=== PATIENT | female | born 1940 | race Caucasian/White ===

== ENCOUNTER → 2016-07-30 | Outpatient (CLI) | payer OTHER ==
[~2016-07-30] MED LIST: ACET-1256 PO; ANT PO; BUDE180I INH; CHOL100010 PO; DORZ2SOL17 OPB; DULO60CA44 PO; FEXO1TAB49 PO; LEVO75TA5 PO; MULTTAB58 PO; PANT40TA PO; PLV75 PO; POLYSOL4 OP; PRD/25 PO; TOPI50TA16 PO; TRAM-10 PO; TRAV0.00 OPB; TRAZ50TA35 PO
[2016-07-30 14:12] LABS: URINE APPEARANCE CLEAR (CLEAR); URINE BILIRUBIN NEG (NEG); URINE COLOR YELLOW; URINE EPITHELIAL CELL AUTO 20-30 /lpf (0-5); URINE NITRITE NEG (NEG); URINE PH 5.5 (4.5-7.5); UROBILINOGEN NEG (NEG)
[2016-07-30 14:18] LABS: MANUAL MICROSCOPIC REQUIRED? NO; REVIEW REQ? NO
== END | disposition home or self-care (01) ==
LOC: C.LABBC 11:46
PROVIDERS: ATTEND Internal Medicine Geriatric Medicine
DX: R39.9 Unspecified symptoms and signs involving the genitourinary system (principal)

== ENCOUNTER → 2016-09-24 | Day surgery (SDC) | payer OTHER ==
[2016-09-03 10:39] VITALS: Ht 147.3 cm; Wt 62.3 kg
[~2016-09-24] VITALS: Ht 147.3 cm; Wt 62.3 kg
[~2016-09-24] MED LIST changes: +500ML BSS 0.3ML EPI 1:1000PF IRRIG ONE; +ACETAMINOPHEN 325 MG TAB PO PRN; +AMVISC PLUS 0.8ML SYRINGE INT OCU ONE; +ATROPINE SULFATE 0.1 MG/ML 5ML SYR IV PRN; +BSS FLUSH ONE; +ENDOCOAT 0.85ML SYRINGE INT OCU ONE; +EpINEphrine INJ 1MG/ML AMP 1 MG/ML AMP ONE; +FENTANYL CITRATE INJ 50 MCG/1 ML 2 ML VIAL ONE; +FSMD/70 PO; +GABA-112 PO; +LACTATED RINGER'S 1000ML 500 ML IV SCH; +LIDOCAINE 4% OP SOLN DROP CHARGE ONE; +LIDOCAINE 4% OP SOLN DROP CHARGE OPL SCH; +LIDOCAINE HCL 1% MPF 2 ML VIAL ONE; +MIDAZOLAM HCL 1 MG/ML 2ML VIAL ONE; +MIX: 4ML BSS 1ML EPI 1:1000 PF TOP ONE; +MOXIFLOXACIN OPH SOLN PER DROP CHARGE ONE; +POVIDONE-IODINE OP SOLN 30 ML BTL ONE; +PRMVC PV; +PROPARACAINE 0.5% OP SOLN PER DROP CHARGE OPL SCH; +RANITIDINE HCL 25 MG/ML INJ ONE; +TOBRAMYCIN/DEXAMETHASONE OPH OINT PER APPLN CHARGE ONE
--- NOTE | 2016-09-24 07:27 | History & Physical Bridge - [place] ---
H&P Re-Evaluation Bridge Note: I have examined the patient, reviewed the History & Physical and in the interval since the performance of the History & Physical I have noted the following changes of clinical significance: No changes noted. Left eye cataract surgery.
[2016-09-24] MEDS: PHENYLEPHRINE HCL 2.5% OP SOLN PER DROP CHARGE OPL SCH ×3 (07:29→07:39)
[2016-09-24] MEDS: TROPICAMIDE 1% OP SOLN PER DROP CHARGE OPL SCH ×3 (07:30→07:40)
[2016-09-24] MEDS: CYCLOPENTOLATE HCL 1% OP SOLN PER DROP CHARGE OPL SCH ×3 (07:31→07:41)
[2016-09-24] MEDS: MOXIFLOXACIN OPH SOLN PER DROP CHARGE OPL SCH ×3 (07:32→07:42)
--- NOTE | 2016-09-24 08:38 | [facility] Operative Report ---
Operative Report Date of Service September 24, 2016. Operative Report Phaco with monofocal IOL DATE OF OPERATION: 09/24/16 PREOPERATIVE DIAGNOSIS: Senile nuclear cataract, left eye POSTOPERATIVE DIAGNOSIS: Senile nuclear cataract, left eye PROCEDURE PERFORMED: Phacoemulsification with intraocular lens implantation, left eye SURGEON: Dr. Rashad Boucher ANESTHESIA: Topical with 1% intracameral lidocaine and monitored anesthesia care COMPLICATIONS: None DESCRIPTION OF PROCEDURE: After positively identifying the patient both verbally and by wristband in the preoperative area, the left eye was marked as the operative eye. The patient was then brought back to the operating room by the anesthesia and nursing staff where they were given a drop of Lidocaine and betadine into the operative eye. They were then sterilely prepped and draped in the standard fashion typical for ophthalmic surgery. Steri-strips were placed along the upper eyelids to keep the lashes back, and a lid speculum was placed into the operative eye. At this point, a documented time out was performed with members of the ophthalmology, nursing, and anesthesia staffs all agreeing upon the correct patient, correct location for surgery, correct procedure, and correct type and power of intraocular lens to be implanted. The microscope was then swung into position. First, a paracentesis wound was made using a sideport blade. Then, in sequence, 1% preservative-free lidocaine followed by Endocoat viscoelastic was injected into the anterior chamber. Next , the main incision was made with a keratome blade in triplanar fashion. A sharp cystotome was introduced into the eye and used to create a tear in the anterior capsule, which was directed into a continuous curvilinear capsulorrhexis using Utrata forceps. Hydrodissection was then performed with BSS on a flat-tip cannula. Next, the phacoemulsification handpiece was introduced into the eye and used to remove the nucleus in a [id number]-wrrssbb fashion. This was done without complication and then the irrigation-aspiration handpiece was introduced into the eye and used to remove all remaining cortical and epinuclear material. Amvisc was then injected into the anterior chamber as well as into the capsular bag and using the lens injector system, an MX60 24.5 D lens, serial number [id number], and expiration date 07/2017 was injected into the capsular bag and rotated into the correct position. Next, the irrigation- aspiration handpiece was used to remove all remaining Amvisc. BSS was used to hydrate the main wound, and then BSS was injected into the paracentesis site to reach physiologic pressure and then the main wound was checked and found to be watertight. The patient was given drops of Vigamox and Tobradex ointment into the operative eye, and then the surrounding area was cleaned and dried. A clear plastic shield was placed over the eye and the patient was then sat up and taken from the operating room by the anesthesia staff having tolerated the procedure well and suffering no complications. DISPOSITION: The patient was returned to the recovery room in stable condition. I attest to the content of the Intraoperative Record and any orders documented therein. Any exceptions are noted below.
--- NOTE | 2016-09-24 08:38 | [facility] Post Operative Brief Note ---
Immediate Operative Summary Operative Date September 24, 2016. Pre-Operative Diagnosis Left eye cataract Post-Operative Diagnosis same Procedure(s) Performed Left Cataract Phacoemulsification With Intraocular Lens implant Surgeon Dr Boucher Carpet Inspector Finished Surgeon(s) none Estimated Blood Loss 0 Findings left cataract Specimens none Complication(s) None Disposition
--- NOTE | 2016-09-24 08:39 | Discharge Instructions-SurgCtr ---
Discharge Instructions Date of Service September 24, 2016. Visit Reason for Visit: Left Cataract Discharge Discharge Diagnosis / Problem: left cataract Discharge Goals Goal(s): Decrease discomfort, Improve function Activity Recommendations Activity Limitations: as noted below Anesthesia . Post Anesthesia Instructions: If you have had General Anesthesia or IV Sedation: * Do not drive today. * Resume driving when surgeon permits. * Do not make important decisions or sign legal documents today. * Call surgeon for: 1. Temperature elevations greater than 101 degrees F. 2. Uncontrollable pain. 3. Excessive bleeding. 4. Persistent nausea and vomiting. 5. Medication intolerance (nausea, vomiting or rash). * For nausea and vomiting use only clear liquids such as: tea, soda, bouillon until nausea subsides, then gradually increase diet as tolerated. * If you have any concerns or questions, call your surgeon's office. If physician is unavailable and it is an emergency, call 911 or go to the nearest emergency room. . Instructions / Follow-Up Instructions / Follow-Up ACTIVITY RECOMMENDATIONS: * Light activities. * You may walk outside, read, watch television. * You may notice redness on the white part of the eye and some blurry vision - this is normal. MEDICATIONS: Resume previous medications unless instructed otherwise by your surgeon. Start all eye drops at 10:30 am today: * Eye drops (today): Prednisone - one drop in operative eye every 2 hours while awake Ofloxacin - one drop in operative eye every 2 hours while awake SPECIAL CARE INSTRUCTIONS: * Tape plastic shield over eye to sleep at night. Call your doctor at with any concerns or problems. FOLLOW UP VISIT: Follow-up with Dr Boucher at [place] office as scheduled. Diet Recommendations Home Diet: no limitations Procedures Procedures Performed: Left Cataract Phacoemulsification With Intraocular Lens implant Pending Studies Studies pending at discharge: no Medical Emergencies . Who to Call and When: Medical Emergencies: If at any time you feel your situation is an emergency, please call 911 immediately. . Non-Emergent Contact Non-Emergency issues call your: Surgeon . . "Provider Documentation" section prepared by Rashad Boucher. .
[2016-09-24 09:21] VITALS: BP 104/62; PULSE 65; O2SAT 97
--- NOTE | 2016-09-24 09:26 | Anesthesia Progress Nt - [facility] ---
Anesthesia Post Op Note Date & Time September 24, 2016 at 09:26 Vital Signs Pain Intensity: 0 Vital Signs Past 12 Hours Date Time Temp Pulse Resp B/P Pulse Ox O2 Delivery O2 Flow Rate FiO2 09/24/16 09:21 65 16 104/62 97 Room Air 09/24/16 08:38 36.8 68 16 122/75 97 Room Air 09/24/16 07:18 36.3 66 20 122/66 100 Room Air Notes Mental Status: alert / awake / arousable, participated in evaluation Pt Amnestic to Procedure: Yes Nausea / Vomiting: adequately controlled Pain: adequately controlled Airway Patency, RR, SpO2: stable & adequate BP & HR: stable & adequate Hydration State: stable & adequate Anesthetic Complications: no major complications apparent
== END | disposition home or self-care (01) ==
LOC: X.SURG 06:58
PROVIDERS: ATTEND Ophthalmology
DX: H25.12 Age-related nuclear cataract, left eye (principal); J45.909 Unspecified asthma, uncomplicated; M19.90 Unspecified osteoarthritis, unspecified site; Z68.28 Body mass index [BMI] 28.0-28.9, adult; Z79.02 Long term (current) use of antithrombotics/antiplatelets; Z98.51 Tubal ligation status; Z86.73 Personal history of transient ischemic attack (TIA), and cerebral infarction without residual deficits; Z90.710 Acquired absence of both cervix and uterus; Z90.49 Acquired absence of other specified parts of digestive tract; Z88.5 Allergy status to narcotic agent; Z88.1 Allergy status to other antibiotic agents

== ENCOUNTER → 2016-12-04 | Outpatient (CLI) | payer OTHER ==
[~2016-12-04] MED LIST changes: -500ML BSS 0.3ML EPI 1:1000PF IRRIG ONE; -ACETAMINOPHEN 325 MG TAB PO PRN; -AMVISC PLUS 0.8ML SYRINGE INT OCU ONE; -ATROPINE SULFATE 0.1 MG/ML 5ML SYR IV PRN; -BSS FLUSH ONE; -ENDOCOAT 0.85ML SYRINGE INT OCU ONE; -EpINEphrine INJ 1MG/ML AMP 1 MG/ML AMP ONE; -FENTANYL CITRATE INJ 50 MCG/1 ML 2 ML VIAL ONE; -FSMD/70 PO; -GABA-112 PO; -LACTATED RINGER'S 1000ML 500 ML IV SCH; -LIDOCAINE 4% OP SOLN DROP CHARGE ONE; -LIDOCAINE 4% OP SOLN DROP CHARGE OPL SCH; -LIDOCAINE HCL 1% MPF 2 ML VIAL ONE; -MIDAZOLAM HCL 1 MG/ML 2ML VIAL ONE; -MIX: 4ML BSS 1ML EPI 1:1000 PF TOP ONE; -MOXIFLOXACIN OPH SOLN PER DROP CHARGE ONE; -POVIDONE-IODINE OP SOLN 30 ML BTL ONE; -PRMVC PV; -PROPARACAINE 0.5% OP SOLN PER DROP CHARGE OPL SCH; -RANITIDINE HCL 25 MG/ML INJ ONE; -TOBRAMYCIN/DEXAMETHASONE OPH OINT PER APPLN CHARGE ONE
== END | disposition home or self-care (01) ==
LOC: C.LABBFT 10:00
PROVIDERS: ATTEND Urology
DX: R39.9 Unspecified symptoms and signs involving the genitourinary system (principal)

== ENCOUNTER → 2017-05-06 | Day surgery (SDC) | payer OTHER ==
[2017-04-07 11:36] VITALS: Ht 147.3 cm; Wt 62.3 kg
[~2017-05-06] VITALS: Ht 147.3 cm; Wt 62.3 kg
[~2017-05-06] MED LIST changes: +500ML BSS 0.3ML EPI 1:1000PF IRRIG ONE; +ACETAMINOPHEN 325 MG TAB PO PRN; +AMVISC PLUS 0.8ML SYRINGE INT OCU ONE; +ATROPINE SULFATE 0.1 MG/ML 5ML SYR IV PRN; +BSS FLUSH ONE; +ENDOCOAT 0.85ML SYRINGE INT OCU ONE; +EpHEDrine SULFATE INJ 50 MG/ML AMP IV PRN; +EpINEphrine INJ 1MG/ML AMP 1 MG/ML AMP ONE; +FSMD/70 PO; +GABA-112 PO; +LACTATED RINGER'S 1000ML 500 ML IV SCH; +LIDOCAINE 4% OP SOLN DROP CHARGE ONE; +LIDOCAINE 4% OP SOLN DROP CHARGE OPR SCH; +LIDOCAINE HCL 1% MPF 2 ML VIAL ONE; +MIDAZOLAM HCL 1 MG/ML 2ML VIAL ONE; +MIX: 4ML BSS 1ML EPI 1:1000 PF TOP ONE; +MOXIFLOXACIN OPH SOLN PER DROP CHARGE ONE; +POVIDONE-IODINE OP SOLN 30 ML BTL ONE; +PRMVC PV; +PROPARACAINE 0.5% OP SOLN PER DROP CHARGE OPR SCH; +TOBRAMYCIN/DEXAMETHASONE OPH OINT PER APPLN CHARGE ONE
--- NOTE | 2017-05-06 06:38 | History & Physical Bridge - [place] ---
H&P Re-Evaluation Bridge Note: I have examined the patient, reviewed the History & Physical and in the interval since the performance of the History & Physical I have noted the following changes of clinical significance: No changes noted
[2017-05-06] MEDS: PHENYLEPHRINE HCL 2.5% OP SOLN PER DROP CHARGE OPR SCH ×3 (07:03→07:13)
[2017-05-06] MEDS: TROPICAMIDE 1% OP SOLN PER DROP CHARGE OPR SCH ×3 (07:04→07:14)
[2017-05-06] MEDS: CYCLOPENTOLATE HCL 1% OP SOLN PER DROP CHARGE OPR SCH ×3 (07:05→07:15)
[2017-05-06] MEDS: MOXIFLOXACIN OPH SOLN PER DROP CHARGE OPR SCH ×3 (07:06→07:16)
--- NOTE | 2017-05-06 08:03 | [facility] Post Operative Brief Note ---
Immediate Operative Summary Operative Date May 06, 2017. Pre-Operative Diagnosis Cataract right eye Post-Operative Diagnosis Same Procedure(s) Performed Right Cataract Phacoemulsification With Intraocular Lens Implant Surgeon Medical Supply Technician Surgeon(s) None Estimated Blood Loss Zero Findings right cataract Specimens None Complication(s) None Disposition
--- NOTE | 2017-05-06 08:04 | [facility] Operative Report ---
Operative Report Date of Service May 06, 2017. Operative Report DATE OF OPERATION: 05/06/17 PREOPERATIVE DIAGNOSIS: Senile nuclear cataract, right eye POSTOPERATIVE DIAGNOSIS: Senile nuclear cataract, right eye PROCEDURE PERFORMED: Phacoemulsification with intraocular lens implantation, right eye SURGEON: Dr. Rashad Boucher ANESTHESIA: Topical with 1% intracameral lidocaine and monitored anesthesia care COMPLICATIONS: None DESCRIPTION OF PROCEDURE: After positively identifying the patient both verbally and by wristband in the preoperative area, the right eye was marked as the operative eye. The patient was then brought back to the operating room by the anesthesia and nursing staff where they were given a drop of Lidocaine and betadine into the operative eye. They were then sterilely prepped and draped in the standard fashion typical for ophthalmic surgery. Steri-strips were placed along the upper eyelids to keep the lashes back, and a lid speculum was placed into the operative eye. At this point, a documented time out was performed with members of the ophthalmology, nursing, and anesthesia staffs all agreeing upon the correct patient, correct location for surgery, correct procedure, and correct type and power of intraocular lens to be implanted. The microscope was then swung into position. First, a paracentesis wound was made using a sideport blade. Then, in sequence, 1% preservative-free lidocaine followed by Endocoat viscoelastic was injected into the anterior chamber. Next , the main incision was made with a keratome blade in triplanar fashion. A sharp cystotome was introduced into the eye and used to create a tear in the anterior capsule, which was directed into a continuous curvilinear capsulorrhexis using Utrata forceps. Hydrodissection was then performed with BSS on a flat-tip cannula. Next, the phacoemulsification handpiece was introduced into the eye and used to remove the nucleus in a [id number]-[id number] fashion. This was done without complication and then the irrigation-aspiration handpiece was introduced into the eye and used to remove all remaining cortical and epinuclear material. Amvisc was then injected into the anterior chamber as well as into the capsular bag and using the lens injector system, an MX60 22.5 D lens, serial number [id number], and expiration date 10/2019 was injected into the capsular bag and rotated into the correct position. Next, the irrigation- aspiration handpiece was used to remove all remaining Amvisc. BSS was used to hydrate the main wound, and then BSS was injected into the paracentesis site to reach physiologic pressure and then the main wound was checked and found to be watertight. The patient was given drops of Vigamox and Tobradex ointment into the operative eye, and then the surrounding area was cleaned and dried. A clear plastic shield was placed over the eye and the patient was then sat up and taken from the operating room by the anesthesia staff having tolerated the procedure well and suffering no complications. DISPOSITION: The patient was returned to the recovery room in stable condition. I attest to the content of the Intraoperative Record and any orders documented therein. Any exceptions are noted below.
[2017-05-06 08:05] VITALS: TEMP 36
--- NOTE | 2017-05-06 08:05 | Discharge Instructions-SurgCtr ---
Discharge Instructions Date of Service May 06, 2017. Visit Reason for Visit: Cataract Right Eye Discharge Discharge Diagnosis / Problem: right cataract Discharge Goals Goal(s): Decrease discomfort, Improve function Activity Recommendations Activity Limitations: as noted below Anesthesia . Post Anesthesia Instructions: If you have had General Anesthesia or IV Sedation: * Do not drive today. * Resume driving when surgeon permits. * Do not make important decisions or sign legal documents today. * Call surgeon for: 1. Temperature elevations greater than 101 degrees F. 2. Uncontrollable pain. 3. Excessive bleeding. 4. Persistent nausea and vomiting. 5. Medication intolerance (nausea, vomiting or rash). * For nausea and vomiting use only clear liquids such as: tea, soda, bouillon until nausea subsides, then gradually increase diet as tolerated. * If you have any concerns or questions, call your surgeon's office. If physician is unavailable and it is an emergency, call 911 or go to the nearest emergency room. . Instructions / Follow-Up Instructions / Follow-Up ACTIVITY RECOMMENDATIONS: * Light activities. * You may walk outside, read, watch television. * You may notice redness on the white part of the eye and some blurry vision - this is normal. MEDICATIONS: Resume previous medications unless instructed otherwise by your surgeon. Start all eye drops at 10 am today: * Eye drops (today): Prednisone - one drop in operative eye every 2 hours while awake Ofloxacin - one drop in operative eye every 2 hours while awake SPECIAL CARE INSTRUCTIONS: * Tape plastic shield over eye to sleep at night. Call your doctor at with any concerns or problems. FOLLOW UP VISIT: Follow-up with Dr Boucher at [place] office as scheduled. Diet Recommendations Home Diet: no limitations Procedures Procedures Performed: Right Cataract Phacoemulsification With Intraocular Lens Implant Pending Studies Studies pending at discharge: no Medical Emergencies . Who to Call and When: Medical Emergencies: If at any time you feel your situation is an emergency, please call 911 immediately. . Non-Emergent Contact Non-Emergency issues call your: Surgeon . . "Provider Documentation" section prepared by Rashad Boucher. .
[2017-05-06 08:27] VITALS: BP 135/82; O2SAT 99
--- NOTE | 2017-05-06 08:29 | Anesthesia Progress Nt - [facility] ---
Anesthesia Post Op Note Date & Time May 06, 2017 at 08:29 Vital Signs Pain Intensity: 2 Vital Signs Past 12 Hours Date Time Temp Pulse Resp B/P (MAP) Pulse Ox O2 Delivery O2 Flow Rate FiO2 05/06/17 08:27 16 135/82 (99) 99 Room Air 05/06/17 08:05 36 68 16 110/71 (84) 95 Room Air 05/06/17 06:30 36.3 71 16 105/70 (82) 97 Room Air Notes Mental Status: alert / awake / arousable, participated in evaluation Pt Amnestic to Procedure: Yes Nausea / Vomiting: adequately controlled Pain: adequately controlled Airway Patency, RR, SpO2: stable & adequate BP & HR: stable & adequate Hydration State: stable & adequate Anesthetic Complications: no major complications apparent
== END | disposition home or self-care (01) ==
LOC: X.SURG 06:25
PROVIDERS: ATTEND Ophthalmology
DX: H25.11 Age-related nuclear cataract, right eye (principal); E03.9 Hypothyroidism, unspecified; K21.9 Gastro-esophageal reflux disease without esophagitis; J45.909 Unspecified asthma, uncomplicated; M79.7 Fibromyalgia; F32.9 Major depressive disorder, single episode, unspecified; Z79.899 Other long term (current) drug therapy

== ENCOUNTER → 2017-07-16 | Outpatient (CLI) | payer OTHER ==
[~2017-07-16] MED LIST changes: -500ML BSS 0.3ML EPI 1:1000PF IRRIG ONE; -ACETAMINOPHEN 325 MG TAB PO PRN; -AMVISC PLUS 0.8ML SYRINGE INT OCU ONE; -ATROPINE SULFATE 0.1 MG/ML 5ML SYR IV PRN; -BSS FLUSH ONE; -ENDOCOAT 0.85ML SYRINGE INT OCU ONE; -EpHEDrine SULFATE INJ 50 MG/ML AMP IV PRN; -EpINEphrine INJ 1MG/ML AMP 1 MG/ML AMP ONE; -LACTATED RINGER'S 1000ML 500 ML IV SCH; -LIDOCAINE 4% OP SOLN DROP CHARGE ONE; -LIDOCAINE 4% OP SOLN DROP CHARGE OPR SCH; -LIDOCAINE HCL 1% MPF 2 ML VIAL ONE; -MIDAZOLAM HCL 1 MG/ML 2ML VIAL ONE; -MIX: 4ML BSS 1ML EPI 1:1000 PF TOP ONE; -MOXIFLOXACIN OPH SOLN PER DROP CHARGE ONE; -POVIDONE-IODINE OP SOLN 30 ML BTL ONE; -PROPARACAINE 0.5% OP SOLN PER DROP CHARGE OPR SCH; -TOBRAMYCIN/DEXAMETHASONE OPH OINT PER APPLN CHARGE ONE
[2017-07-16 16:59] LABS: BASO % 0.9 %; BASO ABS # 0.05 K/uL (0-0.2); EOS % 3.1 %; EOS ABS # 0.17 K/uL (0-0.5); HEMATOCRIT 40.5 % (37-47); HEMOGLOBIN 13.7 g/dL (12.0-16.0); IG# 0.02 K/uL (0.00-0.02); LYMPH % 36.7 %; LYMPH ABS # 1.98 K/uL (1.2-3.4); MEAN CELL VOLUME 95.7 fL (80-100); MEAN CORPUSCULAR HEMOGLOBIN 32.4 pg (25-34); MEAN CORPUSCULAR HGB CONC 33.8 g/dl (32-36); MEAN PLATELET VOLUME 9.5 fL (7.4-10.4); MONO % 14.3 %; MONO ABS # 0.77 K/uL (0.11-0.59); NEUT % 44.6 %; NEUT ABS # 2.41 K/uL (1.4-6.5); PLATELET COUNT 306 K/uL (130-400); RED CELL DISTRIBUTION WIDTH CV 14.1 % (11.5-14.5); RED CELL DISTRIBUTION WIDTH SD 48.9 fL (36.4-46.3)
[2017-07-16 17:13] LABS: ALBUMIN 3.5 gm/dl (3.4-5.0); ALT/SGPT 25 U/L (12-78); BLOOD UREA NITROGEN 19 mg/dl (7-18); CALCIUM 8.8 mg/dl (8.5-10.1); CARBON DIOXIDE 28 mmol/L (21-32); CHOLESTEROL 215 mg/dl (0-200); CREATININE 0.93 mg/dl (0.60-1.20); GLUCOSE 71 mg/dl (70-99); POTASSIUM 3.7 mmol/L (3.5-5.1); SODIUM 134 mmol/L (136-145)
[2017-07-16 17:23] LABS: ALKALINE PHOSPHATASE 45 U/L (45-117); AST/SGOT 20 U/L (15-37); LDL CHOLESTEROL CALCULATED 125 mg/dl
== END | disposition home or self-care (01) ==
LOC: C.LABBC 12:56
PROVIDERS: ATTEND Internal Medicine
DX: G89.29 Other chronic pain (principal); M79.7 Fibromyalgia; M35.3 Polymyalgia rheumatica; E03.9 Hypothyroidism, unspecified; Z86.73 Personal history of transient ischemic attack (TIA), and cerebral infarction without residual deficits; Z79.52 Long term (current) use of systemic steroids; I35.1 Nonrheumatic aortic (valve) insufficiency; R73.01 Impaired fasting glucose

== ENCOUNTER → 2017-12-21 | Outpatient (CLI) | payer OTHER ==
[~2017-12-21] MED LIST changes: -ANT PO; +CALC1CHW46 PO; -CHOL100010 PO; +CHOL1TAB12 PO; -DORZ2SOL17 OPB; +DORZ2SOL19 OPB; -PRMVC PV
--- NOTE | 2017-12-21 18:53 | DIAGNOSTIC IMAGING REPORT ---
TWO VIEW CHEST CLINICAL HISTORY: Cough and fever. FINDINGS: PA and lateral chest radiographs are obtained. No prior studies are available for comparison at the time of dictation. The cardiomediastinal silhouette is unremarkable. There are patchy airspace opacities seen at a posterior lung base on the lateral projection. The it project lead the orbital frontal view. No pleural effusion or pneumothorax is seen. The skeletal structures are osteopenic. The bony thorax appears intact. IMPRESSION: There are patchy airspace opacities seen at a posterior lung base on the lateral projection. This could present atelectasis versus developing pneumonia. Clinical correlation will be required and radiographic follow-up to resolution is recommended. Electronically signed by: Quentin Aragon M.D. 12/21/2017 6:51 PM Dictated Date/Time: 12/21/2017 6:30 PM
== END | disposition home or self-care (01) ==
LOC: C.RAD 17:11
PROVIDERS: ATTEND Internal Medicine
DX: R05 Cough (principal); R50.9 Fever, unspecified

== ENCOUNTER 2021-09-23 15:41 | Observation (INO) ==
[2021-09-23 17:07] LABS: Basophils # (auto) 0.01 K/uL (0-0.2); Basophils % (auto) 0.2 %; Eosinophils # (auto) 0.01 K/uL (0-0.5); Eosinophils % (auto) 0.2 %; Hematocrit (blood only) 44.2 % (37-47); Hemoglobin 15.1 g/dL (12.0-16.0); Immature Granulocytes # (auto) 0.02 K/uL (0.00-0.02); Immature Granulocytes % (auto) 0.3 %; Lymphocytes # (auto) 1.25 K/uL (1.2-3.4); Lymphocytes % (auto) 18.8 %; Mean Corpuscular Hemoglobin 32.1 pg (25-34); Mean Corpuscular Hgb Conc 34.2 g/dL (32-36); Mean Corpuscular Volume 93.8 fL (80-100); Mean Platelet Volume 9.6 fL (7.4-10.4); Monocytes # (auto) 0.33 K/uL (0.11-0.59); Neutrophils # (auto) 5.03 K/uL (1.4-6.5); Neutrophils % (auto) 75.5 %; Platelet Count 281 K/uL (130-400); RDW Standard Deviation 48.1 fL (36.4-46.3); Red Blood Count 4.71 M/uL (4.2-5.4); White Blood Count 6.65 K/uL (4.8-10.8)
--- NOTE | 2021-09-23 17:18 | Emergency Department Note ---
Impression & Plan Elevated troponin, Chest pain ED Provider Note NAME: LENA PAIZ AGE: 81 SEX: F : 1940 ARRIVES VIA: Ambulance INFORMANT: Patient, ED PROVIDER(S): Norm Sy MD Chief Complaint: Chest and abdominal pain HPI: Patient states that she had what she self described as a gastric attack which she has had before but has not had in many years to where she gets diffuse chest pain which then radiates into her upper abdomen. Patient described it as sharp. Patient denies any vomiting but did have associated nausea. No diaphoresis. The patient denies any prior heart history. Patient states that the episode lasted about 30 minutes. It has since resolved but she was going to see the primary care doctor and they referred her here for further evaluation and treatment given the patient's acute symptoms. Patient denies any current abdominal pain nausea or vomiting. Patient's had a recent bowel movement. The patient denies any issues with defecation or urination at this time. No fevers or chills. Patient does complain of some mild bilateral ear discomfort and chronic nonproductive cough. The patient does have a known history of asthma per patient. Patient denies any recent changes in elevation or water activities. ROS: See HPI for pertinent positives and negatives. A total of 10 systems were reviewed and otherwise negative. Past medical history: See below Surgical history: See below Social history: See below Physical Exam: GENERAL: NAD, wearing a mask, non-toxic. EYE EXAM: Normal conjunctiva. PERRL, no anisocoria and EOM's grossly intact w/o pain. Ears: Bilateral TMs clear with no obvious effusion and good light reflex bilaterally. NECK: Supple, no nuchal rigidity, no adenopathy, non-tender. No signs of meningismus. LUNGS: Clear to auscultation. Normal chest wall mechanics. HEART: NSR, no MRG. ABDOMEN: Abdomen soft, non-tender, normo-active bowel sounds, no masses, no rebound or guarding. BACK: No CVA TTP. SKIN: No rashes and no bruising. UPPER EXTREMITIES: Upper extremities are grossly normal. LOWER EXTREMITIES: Grossly normal, no edema. NEURO EXAM: A&O x3, cranial nerves II-XII grossly intact, normal speech, moves all 4 extremities on command w/o issue. Differential diagnoses: Cardiac ischemia, aortic dissection, pulmonary embolism, pneumothorax, pneumonia, pericarditis, myocarditis, esophageal rupture, GERD, cholecystitis, pancreatitis, musculoskeletal, as well as other pathologies. Course: Patient was seen and evaluated the bedside. Full history physical exam was performed. EKG interpreted by me Normal sinus rhythm, rate of 78, normal intervals, normal axis, T wave inversion in V3 with slight flattening V2. This is a change from comparison EKG June 10, 2018. Imaging Studies: See Below Cardiac monitoring: An order was placed for continuous cardiac monitoring. The monitor shows a rate of 67 with sinus rhythm. MDM: Patient was seen due to concern which she self described as a gastric tach with associated chest pain and nausea. Blood work is obtained along with an EKG troponin and plain films. Patient does have slight EKG changes with a detectable high-sensitivity troponin. Given this concern believe the patient would benefit from continued observation. I did speak the on-call hospitalist Dr. Delgado and also spoke with the resident physician Dr. Haskins. The patient was admitted to the medicine service. Patient's plain film showed concern for possible ileus versus SBO but the patient does not have acute pain at this time. No aspirin at this time as the patient has no symptoms currently. I did convey the findings to the patient the patient has not had any further symptoms at this time. Past Med/Surg History Medical History 3-vessel coronary artery disease Abnormal computerized tomography of biliary tract Abnormal LFTs Acute rhinosinusitis Anxiety Aortic valve insufficiency Arthritis Asthma Chronic insomnia Chronic pain Current chronic use of systemic steroids Cystocele Endometriosis Fibromyalgia Gastrointestinal hemorrhage with melena GERD (gastroesophageal reflux disease) Glaucoma Hearing difficulty History of colonic polyps History of gastric ulcer History of migraine History of osteoporosis Hypokalemia Hypophosphatemia Hypothyroid IBS (irritable bowel syndrome) IFG (impaired fasting glucose) Incomplete bladder emptying Liver enzyme elevation Low back pain with sciatica Migraine Moderate aortic insufficiency Nasal polyps Osteoarthritis Osteoporosis Osteoporosis, senile Pessary maintenance Polymyalgia rheumatica Prolapse of female pelvic organs Pulmonary nodule Rectocele 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, reports no residual deficits Transaminitis Traumatic open wound of left lower leg with delayed healing Traumatic wound Urethral stricture Valvular heart disease Surgical History H/O colonoscopy H/O sinus surgery H/O tubal ligation History of cholecystectomy History of esophagogastroduodenoscopy (EGD) (~2011) History of hysterectomy with unilateral oopherectomy- 1978 History of lumbar laminectomy 2000 History of orthopedic surgery rhizotomy S/P cataract surgery Family History Mother Diabetes Ovarian cancer Hypertension Kidney disease Father Diabetes Cardiac disorder Hypertension Stroke Alcohol abuse Other specified hearing loss, bilateral Aunt Breast cancer Brother Cancer Alcohol abuse Daughter Alcohol abuse Anxiety Dementia Family/Other Depression Anxiety Other No significant family history Denies family history of Colorectal cancer Social History Smoking Status: Former smoker Cigarettes Per Day: 5; Smoking End Date: 1974; Second Hand Exposure: No; Do You Dip or Chew Tobacco: No; Tobacco Cessation Education Requested by Patient: No Hx Alcohol Use: No Hx Substance Use: Yes (Medical Marijuana) Last Used Substance: Days (ago) Last Used Substance Other:: 2019 Substance Use Type Other:: medical use Preferred Language: Czech Communication Ability: Effective Visual Impairment: Limited Hearing Ability: Normal Handbag Operator Required: No Beliefs That Will Affect Care: None marital status: / Current Living Situation: Family Current Living Situation Comment: granddaughter and her 2 children live in home current occupational status: retired How many Children do You have: 2 Other Information That Helps Us Care for You: No Feels Safe at Home: Yes Safety Concerns: Feels Safe At This Time Childhood Exposure to Second-Hand Smoke: No caffeine: No during the past year weight has: decreased > 10 lbs Dental Care, Regularly: Yes Physical Activity Frequency: 1-2 Times per Week Seatbelt Use: always Sunscreen Use: Yes Assistive Devices: None Allergies Allergies Allergy/AdvReac Type Severity Reaction Status Date / Time aspirin Allergy Intermediate GI UPSET Verified 09/23/21 14:45 codeine Allergy Intermediate GI UPSET Verified 09/23/21 14:45 erythromycin base Allergy Intermediate GI UPSET Verified 09/23/21 14:45 Home Meds Home Medications Medication Instructions Recorded Confirmed cholecalciferol (vitamin D3) 100 4,000 unit PO DAILY 06/10/18 09/23/21 mcg (4,000 unit) capsule (Vitamin D3) multivitamin 1 tab PO QAM 06/10/18 09/23/21 trazodone 100 mg tablet 1 tab PO QPM 06/10/18 09/23/21 tramadol 50 mg tablet 50 mg PO AMPM tab 02/13/19 09/23/21 latanoprost 0.005 % eye drops 1 drops OP QPM 03/03/19 09/23/21 alendronate 70 mg tablet (Fosamax) 70 mg PO WK tab 01/17/20 09/23/21 dorzolamide 22.3 mg-timolol 6.8 1 drp OPB BID 10/07/20 09/23/21 mg/mL eye drops zinc sulfate 25 mg zinc (110 mg) 25 mg PO DAILY 12/11/20 09/23/21 tablet (Orazinc) duloxetine 60 mg capsule,delayed 60 mg PO BID cap 01/31/21 09/23/21 release artificial tears(hypromellose) 0.3 1 drp OPHTHALMIC (EYE) TID g 09/18/21 0 09/23/21 % eye gel (Systane Gel) fexofenadine 60 mg tablet 180 mg PO DAILY tab 09/18/21 09/23/21 furosemide 20 mg tablet 20 mg PO QAM 09/18/21 09/23/21 peg 400-propylene glycol 0.4 %-0.3 1 drp OPHTHALMIC (EYE) TID 09/18/21 09/23/21 % eye drops (Systane Ultra) spironolactone 25 mg tablet 12.5 mg PO QAM 09/18/21 09/23/21 cholecalciferol (vitamin D3) 100 100 mcg PO DAILY 09/23/21 09/23/21 mcg (4,000 unit) capsule docusate sodium 100 mg capsule 100 mg PO DAILY 09/23/21 09/23/21 doxycycline hyclate 100 mg capsule 100 mg PO BID 09/23/21 09/23/21 famotidine 20 mg tablet 20 mg PO HS 09/23/21 09/23/21 levothyroxine 75 mcg tablet 75 mcg PO DAILY 09/23/21 09/23/21 magnesium 250 mg tablet 250 mg PO DAILY 09/23/21 09/23/21 pantoprazole 40 mg tablet,delayed 40 mg PO BID 09/23/21 09/23/21 release prednisone 20 mg tablet 20 mg PO .DAILY FOR 5 DAYS 09/23/21 09/23/21 Previous Rx's Medication Instructions Recorded topiramate 50 mg tablet 100 mg PO BID 90 Days #360 tab 10/03/20 prednisone 2.5 mg tablet 2.5 mg PO DAILY #90 tab 10/23/20 gabapentin 300 mg capsule 300 mg PO HS 90 Days #90 cap 01/31/21 albuterol sulfate 90 mcg/actuation 2 puff INH Q6H PRN #3 inhaler 03/11/21 aerosol inhaler clopidogrel 75 mg tablet 75 mg PO QAM #90 tab 04/15/21 montelukast 10 mg tablet 10 mg PO DAILY #30 tab 05/13/21 budesonide-formoterol HFA 160 2 puff INHALATION BID #3 inhaler 06/25/21 mcg-4.5 mcg/actuation aerosol inhaler (Symbicort) Portable Oxygen #1 ea 09/18/21 Results & Data (ED) Vital Signs Vital Signs - 24 hr 09/23/21 15:54 09/23/21 16:46 09/23/21 17:12 Temperature 36.1 C L Temperature Source Temporal Artery Scan Pulse Rate 90 87 Pulse Rate [Apical] 83 Pulse Rate from SpO2 Sensor Respiratory Rate 16 16 23 Respiratory Effort / Characteristics Non-Labored Respiratory Depth Normal Blood Pressure 121/68 Blood Pressure [Right Arm] 110/64 Blood Pressure Mean 85 Blood Pressure Mean [Right Arm] 79 Pulse Oximetry 95 90 Oxygen Delivery Method Room Air Room Air Sepsis Recent Fever Within 48 Hours No Sepsis New/Unexplained Change in Mental Status No Sepsis Action Taken by Nursing No Action Required 09/23/21 17:20 09/23/21 17:30 09/23/21 17:40 Temperature Temperature Source Pulse Rate 83 80 79 Pulse Rate [Apical] Pulse Rate from SpO2 Sensor 83 82 Respiratory Rate 15 15 15 Respiratory Effort / Characteristics Respiratory Depth Blood Pressure 118/64 Blood Pressure [Right Arm] Blood Pressure Mean 82 Blood Pressure Mean [Right Arm] Pulse Oximetry 92 94 Oxygen Delivery Method Sepsis Recent Fever Within 48 Hours Sepsis New/Unexplained Change in Mental Status Sepsis Action Taken by Nursing 09/23/21 17:50 09/23/21 18:57 09/23/21 19:00 Temperature Temperature Source Pulse Rate 78 84 82 Pulse Rate [Apical] Pulse Rate from SpO2 Sensor Respiratory Rate 16 8 L 18 Respiratory Effort / Characteristics Respiratory Depth Blood Pressure Blood Pressure [Right Arm] Blood Pressure Mean Blood Pressure Mean [Right Arm] Pulse Oximetry Oxygen Delivery Method Sepsis Recent Fever Within 48 Hours Sepsis New/Unexplained Change in Mental Status Sepsis Action Taken by Nursing 09/23/21 19:03 09/23/21 19:10 09/23/21 19:20 Temperature Temperature Source Pulse Rate 83 82 80 Pulse Rate [Apical] Pulse Rate from SpO2 Sensor 83 81 80 Respiratory Rate 20 21 21 Respiratory Effort / Characteristics Respiratory Depth Blood Pressure 116/61 Blood Pressure [Right Arm] Blood Pressure Mean 79 Blood Pressure Mean [Right Arm] Pulse Oximetry 90 90 90 Oxygen Delivery Method Sepsis Recent Fever Within 48 Hours Sepsis New/Unexplained Change in Mental Status Sepsis Action Taken by Nursing 09/23/21 19:30 09/23/21 19:46 09/23/21 19:50 Temperature Temperature Source Pulse Rate 77 88 84 Pulse Rate [Apical] Pulse Rate from SpO2 Sensor 78 Respiratory Rate 19 17 19 Respiratory Effort / Characteristics Respiratory Depth Blood Pressure 114/60 Blood Pressure [Right Arm] Blood Pressure Mean 78 Blood Pressure Mean [Right Arm] Pulse Oximetry 90 Oxygen Delivery Method Sepsis Recent Fever Within 48 Hours Sepsis New/Unexplained Change in Mental Status Sepsis Action Taken by Nursing 09/23/21 20:00 09/23/21 20:10 09/23/21 20:20 Temperature Temperature Source Pulse Rate 75 116 H 73 Pulse Rate [Apical] Pulse Rate from SpO2 Sensor 77 74 Respiratory Rate 18 16 13 Respiratory Effort / Characteristics Respiratory Depth Blood Pressure 118/72 Blood Pressure [Right Arm] Blood Pressure Mean 87 Blood Pressure Mean [Right Arm] Pulse Oximetry 94 96 Oxygen Delivery Method Sepsis Recent Fever Within 48 Hours Sepsis New/Unexplained Change in Mental Status Sepsis Action Taken by Nursing 09/23/21 20:30 09/23/21 20:40 09/23/21 20:50 Temperature Temperature Source Pulse Rate 78 104 H 152 H Pulse Rate [Apical] Pulse Rate from SpO2 Sensor 77 74 79 Respiratory Rate 16 14 13 Respiratory Effort / Characteristics Respiratory Depth Blood Pressure 106/65 Blood Pressure [Right Arm] Blood Pressure Mean 78 Blood Pressure Mean [Right Arm] Pulse Oximetry 94 95 95 Oxygen Delivery Method Sepsis Recent Fever Within 48 Hours Sepsis New/Unexplained Change in Mental Status Sepsis Action Taken by [facility] Medications Current Medication List: was personally reviewed by me Laboratory Data Attestation: I reviewed the patient's lab results. Result diagrams: 09/24/21 03:42 05/03/22 03:42 Lab Results 09/23/21 09/23/21 09/23/21 Range/Units 16:37 16:37 16:37 WBC 6.65 (4.8-10.8) K/uL RBC 4.71 (4.2-5.4) M/uL Hgb 15.1 (12.0-16.0) g/dL Hct 44.2 (37-47) % MCV 93.8 (80-100) fL MCH 32.1 (25-34) pg MCHC 34.2 (32-36) g/dL RDW Std Deviation 48.1 H (36.4-46.3) fL RDW Coeff of Sudha 14.0 (11.5-14.5) % Plt Count 281 (130-400) K/uL MPV 9.6 (7.4-10.4) fL Immature Gran % (Auto) 0.3 % Neut % (Auto) 75.5 % Lymph % (Auto) 18.8 % [place] % (Auto) 5.0 % Eos % (Auto) 0.2 % Baso % (Auto) 0.2 % Neut # (Auto) 5.03 (1.4-6.5) K/uL Lymph # (Auto) 1.25 (1.2-3.4) K/uL [place] # (Auto) 0.33 (0.11-0.59) K/uL Eos # (Auto) 0.01 (0-0.5) K/uL Baso # (Auto) 0.01 (0-0.2) K/uL Immature Gran # (Auto) 0.02 (0.00-0.02) K/uL Sodium 130 L (136-145) mmol/L Potassium (3.5-5.1) mmol/L Chloride 98 (98-107) mmol/L Carbon Dioxide 25 (21-32) mmol/L Anion Gap 7 (3-11) BUN 16 (6-23) mg/dl Creatinine 0.84 (0.6-1.2) mg/dl Est Cr Clr Drug Dosing Not Reportable Est GFR ( Amer) 75.5 ml/min Est GFR (Non-Af Amer) 65.2 ml/min BUN/Creatinine Ratio 19.0 (10-20) Glucose 142 H (70-99(Fasting)) mg/dl Calcium 9.2 (8.5-10.1) mg/dl Total Bilirubin 0.5 (0.2-1.0) mg/dl AST (13-39) U/L ALT 30 (7-52) U/L Alkaline Phosphatase 97 (34-104) U/L Troponin I High Sens 22.3 H (0-14) pg/ml Total Protein 7.2 (6.0-8.3) gm/dl Albumin 4.0 (3.4-5.0) gm/dl Globulin 3.2 (2.5-4.0) gm/dl Albumin/Globulin Ratio 1.3 (0.9-2) Lipase 21 (11-82) U/L 09/23/21 Range/Units 18:18 WBC (4.8-10.8) K/uL RBC (4.2-5.4) M/uL Hgb (12.0-16.0) g/dL Hct (37-47) % MCV (80-100) fL MCH (25-34) pg MCHC (32-36) g/dL RDW Std Deviation (36.4-46.3) fL RDW Coeff of Sudha (11.5-14.5) % Plt Count (130-400) K/uL MPV (7.4-10.4) fL Immature Gran % (Auto) % Neut % (Auto) % Lymph % (Auto) % [place] % (Auto) % Eos % (Auto) % Baso % (Auto) % Neut # (Auto) (1.4-6.5) K/uL Lymph # (Auto) (1.2-3.4) K/uL [place] # (Auto) (0.11-0.59) K/uL Eos # (Auto) (0-0.5) K/uL Baso # (Auto) (0-0.2) K/uL Immature Gran # (Auto) (0.00-0.02) K/uL Sodium (136-145) mmol/L Potassium 3.8 (3.5-5.1) mmol/L Chloride (98-107) mmol/L Carbon Dioxide (21-32) mmol/L Anion Gap (3-11) BUN (6-23) mg/dl Creatinine (0.6-1.2) mg/dl Est Cr Clr Drug Dosing Est GFR ( Amer) ml/min Est GFR (Non-Af Amer) ml/min BUN/Creatinine Ratio (10-20) Glucose (70-99(Fasting)) mg/dl Calcium (8.5-10.1) mg/dl Total Bilirubin (0.2-1.0) mg/dl AST 53 H (13-39) U/L ALT (7-52) U/L Alkaline Phosphatase (34-104) U/L Troponin I High Sens (0-14) pg/ml Total Protein (6.0-8.3) gm/dl Albumin (3.4-5.0) gm/dl Globulin (2.5-4.0) gm/dl Albumin/Globulin Ratio (0.9-2) Lipase (11-82) U/L Administered Medications Acetaminophen (Acetaminophen 325 Mg Tab) 650 mg PO Q4H PRN PRN Reason: pain/fever Stop: 10/23/21 20:52 Last Admin: 09/24/21 12:18 Dose: 650 mg Documented by: [id number] Clopidogrel Bisulfate (Clopidogrel Bisulfate 75 Mg Tab) [facility] [place] Stop[facility] 10/24/21 08:59 Last Admin: 09/24/21 08:40 Dose: 75 mg Documented by: [id number] Docusate Sodium (Docusate Sodium 100 Mg Cap) 100 mg PO DAILY [facility] Stop: 10/24/21 08:59 Last Admin: 09/24/21 08:40 Dose: 100 mg Documented by: [id number] Dorzolamide/Timolol (Dorzolamide/Timolol 22.3/6.8mg/Ml 10 Ml Btl) 1 drops OPB BID [facility] Stop: 10/24/21 01:23 Last Admin: 09/24/21 08:48 Dose: 1 drops Documented by: [id number] Admin: 09/24/21 02:56 Dose: 1 drops Documented by: [id number] Doxycycline Hyclate (Doxycycline Hyclate 100 Mg Cap) 100 mg PO BID [facility] Stop: 09/25/21 09:01 Last Admin: 09/24/21 08:40 Dose: 100 mg Documented by: [id number] Duloxetine HCl (Duloxetine Hcl 60 Mg Cap) 60 mg PO BID [facility] Stop: 10/24/21 01:23 Last Admin: 09/24/21 08:38 Dose: 60 mg Documented by: [id number] Admin: 09/24/21 04:06 Dose: 60 mg Documented by: [id number] Enoxaparin Sodium (Enoxaparin Inj 40 Mg/0.4 Ml Syr) 40 mg SQ Q24H IN[facility] Stop: 10/23/21 20:59 Last Admin: 09/23/21 22:56 Dose: 40 mg Documented by: [id number] Fexofenadine HCl (Fexofenadine Hcl 180 Mg Tab) 180 mg PO DAILY IN[facility] Stop: 10/24/21 08:59 Last Admin: 09/24/21 08:39 Dose: 180 mg Documented by: [id number] Fluticasone Propionate (Fluticasone Propionate Na Spr 16 Gm Btl) 2 sprays NA DAILY [facility] Stop: 10/24/21 08:59 Last Admin: 09/24/21 08:38 Dose: 2 sprays Documented by: [id number] Fluticasone/Vilanterol (Fluticasone/Vilanterol 100/25mcg 14 Puffs/Inhaler) 1 puffs INH DAILY [facility] Stop: 10/24/21 08:59 Last Admin: 09/24/21 08:38 Dose: 1 puffs Documented by: [id number] Furosemide (Furosemide 20 Mg Tab) 20 mg PO QAM IN[facility] Stop: 10/24/21 08:59 Last Admin: 09/24/21 08:39 Dose: 20 mg Documented by: [id number] Levothyroxine Sodium (Levothyroxine Sodium 75 Mcg Tablet) 75 mcg PO DAILYBB [facility] Stop: 10/24/21 06:29 Last Admin: 09/24/21 05:42 Dose: 75 mcg Documented by: [id number] Montelukast Sodium (Montelukast Sodium 10 Mg Tablet) 10 mg PO DAILY IN[facility] Stop: 10/24/21 08:59 Last Admin: 09/24/21 08:40 Dose: 10 mg Documented by: [id number] Multivitamins (Multivitamin Tab) 1 tab PO QAM [facility] Stop: 10/24/21 08:59 Last Admin: 09/24/21 08:40 Dose: 1 tab Documented by: [id number] Pantoprazole Sodium (Pantoprazole 40 Mg Tab) 40 mg PO BID IN[facility] Stop: 10/24/21 08:59 Last Admin: 09/24/21 08:40 Dose: 40 mg Documented by: [id number] Prednisone (Prednisone 2.5 Mg Tab) 2.5 mg PO DAILY IN[facility] Stop: 10/24/21 08:59 Last Admin: 09/24/21 08:40 Dose: 2.5 mg Documented by: [id number] Spironolactone (Spironolactone 25 Mg Tab) 12.5 mg PO QAM IN[facility] Stop: 10/24/21 08:59 Last Admin: 09/24/21 08:40 Dose: 12.5 mg Documented by: [id number] Topiramate (Topiramate 100 Mg Tab) 100 mg PO BID IN[facility] Stop: 10/24/21 01:23 Last Admin: 09/24/21 08:40 Dose: 100 mg Documented by: [id number] Admin: 09/24/21 04:06 Dose: 100 mg Documented by: [id number] Tramadol HCl (Tramadol Hcl 50 Mg Tablet) 50 mg PO BID PRN PRN Reason: pain Stop: 10/24/21 01:23 Last Admin: 09/24/21 05:41 Dose: 50 mg Documented by: [id number] Vitamin D (Cholecalciferol 1,000 Units 25 Mcg Tab) 4,000 units PO DAILY IN[facility] Stop: 10/24/21 08:59 Last Admin: 09/24/21 08:40 Dose: 4,000 units Documented by: [id number] Discontinued Medications Acetaminophen (Acetaminophen 500 Mg Tab) 1,000 mg PO NOW STA Stop: 09/23/21 20:07 Last Admin: 09/23/21 20:53 Dose: 1,000 mg Documented by: [id number] Al Hydrox/Mg Hydrox/Simethicone (Gi Cocktail Ed Use) Confirm Administered Dose 1 dose PO .STK-MED ONE Stop: 09/23/21 22:51 Last Admin: 09/23/21 22:57 Dose: 1 dose Documented by: [id number] Al Hydrox/Mg Hydrox/Simethicone 18 ml/ Lidocaine HCl 6 ml/ BARCODE IDENTIFIER 1 ea 0 ml PO ONE ONE Stop: 09/23/21 22:37 Last Admin: 09/23/21 22:57 Dose: Not Given Documented by: [id number] Gabapentin (Gabapentin 300 Mg Cap) 300 mg PO ONE STA Stop: 09/24/21 00:40 Last Admin: 09/24/21 01:01 Dose: 300 mg Documented by: [id number] Latanoprost (Latanoprost 0.005% Op Soln 2.5 Ml Btl) 1 drops OP NOW STA Stop: 09/24/21 00:26 Last Admin: 09/24/21 01:01 Dose: 1 drops Documented by: [id number] Tramadol HCl (Tramadol Hcl 50 Mg Tablet) 50 mg PO BID INES Stop: 10/24/21 01:23 Last Admin: 09/24/21 02:24 Dose: Not Given Documented by: [id number] Trazodone HCl (Trazodone Hcl 50 Mg Tab) 50 mg PO NOW ONE Stop: 09/24/21 00:26 Last Admin: 09/24/21 01:01 Dose: 50 mg Documented by: [id number] Imaging Data Radiologist's Impression: Chest/Abdomen X-ray 09/23/21 17:38 PA CHEST RADIOGRAPH AND UPRIGHT AND SUPINE AP RADIOGRAPHS OF THE ABDOMEN CLINICAL HISTORY: Chest and abdominal pain. COMPARISON STUDY: Chest CT April 05, 2019. Chest radiograph June 25, 2021. CT of the abdomen and pelvis June 10, 2018. FINDINGS: No pneumothorax or pleural effusion is noted. Cardiomediastinal silhouette is stable. There is no evidence for pulmonary edema. There is minimal right midlung opacity. There is no free air. There are multiple loops of slightly dilated small bowel which measure up to 2.9 cm in caliber. Moderate amount stool within the colon is noted. A few air-fluid levels are noted on upright projection. IMPRESSION: 1. No free air. 2. Several loops of slightly dilated small bowel. This could reflect a partial small bowel obstruction or ileus. 3. Minimal opacity within the lateral right midlung. This favors atelectasis. However, follow-up PA and lateral chest radiographs in one month to ensure resolution are recommended. ACT 112: Negative or not required by law. Electronically signed by: Joselito Montes M.D. 09/23/2021 6:37 PM Discharge Plan Visit Data Chief Complaint: GI Assessment Discharge Problem: Elevated troponin, Chest pain Patient Disposition: Admitted As Inpatient Discharge Instructions Interventions: ED Discharge Assessment Last Done: 09/24/21 00:43
[2021-09-23 18:15] LABS: Alanine Aminotransferase 30 U/L (7-52); Albumin Globulin Ratio 1.3 (0.9-2); Alkaline Phosphatase 97 U/L (34-104); Anion Gap 7 (3-11); Bilirubin,Total 0.5 mg/dl (0.2-1.0); Blood Urea Nitrogen 16 mg/dl (6-23); Calcium 9.2 mg/dl (8.5-10.1); Carbon Dioxide 25 mmol/L (21-32); Chloride 98 mmol/L (98-107); Est GFR (African American) 75.5 ml/min; Est GFR (Non-African American) 65.2 ml/min; Globulin 3.2 gm/dl (2.5-4.0); Glucose 142 mg/dl (70-99(Fasting)); Lipase 21 U/L (11-82); Sodium 130 mmol/L (136-145); Total Protein 7.2 gm/dl (6.0-8.3)
--- NOTE | 2021-09-23 18:39 | XRay Report ---
PA CHEST RADIOGRAPH AND UPRIGHT AND SUPINE AP RADIOGRAPHS OF THE ABDOMEN CLINICAL HISTORY: Chest and abdominal pain. COMPARISON STUDY: Chest CT April 05, 2019. Chest radiograph June 25, 2021. CT of the abdomen a nd pelvis June 10, 2018. FINDINGS: No pneumothorax or pleural effusion is noted. Cardiomediastinal silhouette is stable. Ther e is no evidence for pulmonary edema. There is minimal right midlung opacity. There is no free air. T here are multiple loops of slightly dilated small bowel which measure up to 2.9 cm in caliber. Modera te amount stool within the colon is noted. A few air-fluid levels are noted on upright projection. IMPRESSION: 1. No free air. 2. Several loops of slightly dilated small bowel. This could reflect a partial small bowel obstructio n or ileus. 3. Minimal opacity within the lateral right midlung. This favors atelectasis. However, follow-up PA a nd lateral chest radiographs in one month to ensure resolution are recommended. ACT 112: Negative or not required by law. Electronically signed by: Joselito Montes M.D. 09/23/2021 6:37 PM
[2021-09-23 19:11] LABS: Potassium 3.8 mmol/L (3.5-5.1)
[2021-09-23] MEDS ORDERED: ACETAMINOPHEN 500 MG TAB PO STA (20:06)
--- NOTE | 2021-09-23 20:11 | History & Physical Report ---
Date of Service September 23, 2021 Assessment & Plan (1) Chest pain: Plan: This is an 81-year-old female with a history of migraines, chronic fatigue syndrome with fibromyalgia, exertional dyspnea with pHTN, cerebrovascular disease, polymyalgia rheumatica, osteoporosis, moderate aortic insufficiency, chronic use of steroids, asthma, hypothyroidism, GERD, pulmonary hypertension who presented to [facility] for evaluation of chest/epigastric pain. Chest Pain Patient reports recurrence of severe, crushing like chest/epigastric pain that lasted 30 minutes before spontaneously resolving; not reproducible with exertion. She reports last having an episode this bad approximately 6 years ago. She also does report some epigastric discomfort after eating and a significant history of reflux. Work-up as follows KUB/CXR demonstrating no mediastinal changes; also showing several loops of slightly dilated small bowel Troponin elevated to 25 on arrival ; ECG demonstrating nonspecific T wave changes in V2/V3 compared to 2019 study Lipase, chemistries, CBC otherwise within normal limits History noted: Status post CCY, hysterectomy; +epigastric pain occasionally after eating; in 2018, Chest CT demonstrated mild coronary calcifications Dobutamine stress TTE 08/2020 (per PCP note): "normal wall motion response to dobutamine. Negative for dobutamine induced ischemia > 100% MPHR." At this time, primarily suspect GI in nature given recurrence of this over the past several years and recent bump in prednisone dosage x 1 day; differential includes esophageal spasms, reflux, peptic ulcers, less likely mesenteric ischemia. Her KUB demonstrating mildly dilated loops of bowel is notedclinically however, she is passing gas, had a bowel movement yesterday, reports no issues with eating over the past dayless likely ileus/SBO. Cardiac cause considered given repolarization abnormalities and mildly bumped troponin, but seems less likely. No clinical evidence of PE at this time. Mediastinum on chest x-ray not demonstrating any changes concerning for vascular cause. Trend troponin; if elevating, could consider obtaining repeat nuclear study to further evaluate for ischemia prior to discharge Continue PPI, Pepcid; add Maalox, GI cocktail as needed Obtain KUB in a.m. Low threshold to obtain CTA of the chest or CT abdomen pelvis should new chest/oxygenation changes occur or belly pain reappear, respectively Given reassuring exam, okay for PO intake for now. If symptoms recur, low threshold to make n.p.o. Order H. pylori stool test Would likely benefit from GI consultation as outpatient for possible EGD/esophageal manometry if above cardiac work-up is negative Admit to monitored bed (2) Elevated troponin: Plan: Elevated troponin Patient noted to have minimally elevated high-sensitivity troponin with nonspecific T wave abnormalities appreciated in the anterior leads compared to 2019 Trend; currently not complaining of any chest pain at present. No symptoms with exertion. Admit to monitored bed ECG in a.m. (3) AYE (obstructive sleep apnea): Plan: AYE Not currently on CPAP -- in process of getting sleep study as outpatient per PCP notes TTE with evidence of severe pulmonary hypertension (4) Polymyalgia rheumatica: Plan: Fibromyalgia/polymyalgia rheumatica Follows with Dr. Nunez - Rheumatology Continue low-dose prednisone Continue duloxetine, gabapentin Continue tramadol and appropriate (5) Pulmonary hypertension: Plan: Pulmonary HTN / Exertional dyspnea Chronic. Follows with [facility] cardiology for pHTN. Continue spironolactone, furosemide 20 mg daily TTE 07/2021 demonstrating severely elevated pulmonary artery pressure, estimated PASP 79 mmHg (6) Asthma: Plan: Asthma Follows with [facility] A&[facility] Continue Singulair, Symbicort, albuterol as needed (7) Hypothyroid: Plan: Hypothyroidism Continue levothyroxine (8) GERD (gastroesophageal reflux disease): Plan: GERD Continue pantoprazole 40mg b.i.d. Increase famotidine to 40mg daily Maalox p.r.n. (9) Cervicogenic headache: Plan: Chronic headache syndrome Continue topiramate (10) Moderate aortic insufficiency: Plan: Aortic Insufficiency Last TTE 07/2021 at [facility]: Moderate central aortic insufficiency (PHT 438 MS) Follows with [facility], Dr. Herrera (11) Sinusitis: Plan: Acute Bacterial Rhinosinusitis Diagnosed several days ago at [facility]; continue doxycycline 100 mg p.o. twice daily for now Flonase 2spr/day Plan: Code: Full code Dispo: MedSurg with telemetry Prophylaxis: Lovenox Diet: Heart healthy History of Present Illness Primary Care Provider: Dalton Rendon MD This is an 81-year-old female with a history of migraines, chronic fatigue syndrome with fibromyalgia, exertional dyspnea with pHTN, cerebrovascular disease, coronary artery disease, polymyalgia rheumatica, osteoporosis, moderate aortic insufficiency, chronic use of steroids, asthma, hypothyroidism, GERD, pulmonary hypertension who presented to [facility] for evaluation of chest/epigastric pain. Earlier this afternoon, she was going in to see her PCP for follow-up of sinus symptoms when she developed sudden onset 9 out of 10 substernal crushing chest/epigastric pain. She describes this as a "gastritis attack." She said that she had mild nausea and chest tightness with breathing, but was not short of breath. She denied any lightheadedness or dizziness. Denied any chills or sweats. Given the severity of her pain, she was referred to the ER for further evaluation. Approximately 5 to 6 days ago, patient began doxycycline for treatment of acute bacterial rhinosinusitis. She was also initiated on prednisone 20 mg daily yesterday. On further review, patient reports a long-term history of these "gastritis attacks." She describes them the same as the episode today. She says she has not had 1 this severe in about 6 years. She does endorse that she gets some postprandial pain immediately after eating. She does endorse a long-term history of reflux, currently controlled on Pepcid and pantoprazole. She denies any darkly discolored/bloody stools. She endorses passing gas now. She says that her last bowel movement was yesterday and normal. She does report that back in time, in [place], she was hospitalized multiple times for this painshe reports having extensive cardiac work-up, which was reportedly negative, and as such the etiology was thought to be GI in nature. Medications reviewed and include albuterol as needed, alendronate 70 mg weekly, artificial tears, budesonide/formoterol, clopidogrel 75 mg, docusate, dorzolamidetimolol, duloxetine 60 mg, famotidine, fexofenadine, furosemide 20 mg daily, gabapentin 300 mg nightly, levothyroxine 75 mcg daily, Singulair, Protonix, prednisone 2.5 mg daily, spironolactone 25 mg, Topamax 100 mg twice daily, tramadol 50 mg, trazodone at nighttime. Upon arrival in the ER, patient was found to have normal vital signs. CBC largely normal. BMP revealing sodium 130, potassium 3.8, AST 53, high- sensitivity troponin 22.3, lipase 21. KUB demonstrated "several loops of slightly dilated small bowel. This could reflect a partial small bowel obstruction/ileus." Also observed was opacity within the lateral right midlung, favoring atelectasis, for which a 1-month PA radiograph follow-up was recommended. ECG demonstrated nonspecific T waves in V2/V3, new compared to 2019 study. Given concern for her chest pain, mildly bumped troponin, and some EKG changes, she was called for admission. Allergies Allergy/AdvReac Type Severity Reaction Status Date / Time aspirin Allergy Intermediate GI UPSET Verified 09/23/21 14:45 codeine Allergy Intermediate GI UPSET Verified 09/23/21 14:45 erythromycin base Allergy Intermediate GI UPSET Verified 09/23/21 14:45 Home Medications Medication Instructions Recorded Confirmed Type cholecalciferol (vitamin D3) 100 4,000 unit PO DAILY 06/10/18 09/23/21 History mcg (4,000 unit) capsule (Vitamin D3) multivitamin 1 tab PO QAM 06/10/18 09/23/21 History trazodone 100 mg tablet 1 tab PO QPM 06/10/18 09/23/21 History tramadol 50 mg tablet 50 mg PO AMPM tab 02/13/19 09/23/21 History latanoprost 0.005 % eye drops 1 drops OP QPM 03/03/19 09/23/21 History alendronate 70 mg tablet (Fosamax) 70 mg PO WK tab 01/17/20 09/23/21 History topiramate 50 mg tablet 100 mg PO BID 90 Days #360 tab 10/03/20 09/23/21 Rx dorzolamide 22.3 mg-timolol 6.8 1 drp OPB BID 10/07/20 09/23/21 History mg/mL eye drops prednisone 2.5 mg tablet 2.5 mg PO DAILY #90 tab 10/23/20 09/23/21 Rx zinc sulfate 25 mg zinc (110 mg) 25 mg PO DAILY 12/11/20 09/23/21 History tablet (Orazinc) duloxetine 60 mg capsule,delayed 60 mg PO BID cap 01/31/21 09/23/21 History release gabapentin 300 mg capsule 300 mg PO HS 90 Days #90 cap 01/31/21 09/23/21 Rx albuterol sulfate 90 mcg/actuation 2 puff INH Q6H PRN #3 inhaler 03/11/21 09/23/21 Rx aerosol inhaler clopidogrel 75 mg tablet 75 mg PO QAM #90 tab 04/15/21 09/23/21 Rx montelukast 10 mg tablet 10 mg PO DAILY #30 tab 05/13/21 09/23/21 Rx budesonide-formoterol HFA 160 2 puff INHALATION BID #3 inhaler 06/25/21 09/23/21 Rx mcg-4.5 mcg/actuation aerosol inhaler (Symbicort) Portable Oxygen #1 ea 09/18/21 09/23/21 Rx artificial tears(hypromellose) 0.3 1 drp OPHTHALMIC (EYE) TID g 09/18/21 09/23/21 History % eye gel (Systane Gel) fexofenadine 60 mg tablet 180 mg PO DAILY tab 09/18/21 09/23/21 History furosemide 20 mg tablet 20 mg PO QAM 09/18/21 09/23/21 History peg 400-propylene glycol 0.4 %-0.3 1 drp OPHTHALMIC (EYE) TID 09/18/21 09/23/21 History % eye drops (Systane Ultra) spironolactone 25 mg tablet 12.5 mg PO QAM 09/18/21 09/23/21 History cholecalciferol (vitamin D3) 100 100 mcg PO DAILY 09/23/21 09/23/21 History mcg (4,000 unit) capsule docusate sodium 100 mg capsule 100 mg PO DAILY 09/23/21 09/23/21 History doxycycline hyclate 100 mg capsule 100 mg PO BID 09/23/21 09/23/21 History famotidine 20 mg tablet 20 mg PO HS 09/23/21 09/23/21 History levothyroxine 75 mcg tablet 75 mcg PO DAILY 09/23/21 09/23/21 History magnesium 250 mg tablet 250 mg PO DAILY 09/23/21 09/23/21 History pantoprazole 40 mg tablet,delayed 40 mg PO BID 09/23/21 09/23/21 History release prednisone 20 mg tablet 20 mg PO .DAILY FOR 5 DAYS 09/23/21 09/23/21 History Past Med/Surg History Medical History 3-vessel coronary artery disease Abnormal computerized tomography of biliary tract Abnormal LFTs Acute rhinosinusitis Anxiety Aortic valve insufficiency Arthritis Asthma Chronic insomnia Chronic pain Current chronic use of systemic steroids Cystocele Endometriosis Fibromyalgia Gastrointestinal hemorrhage with melena GERD (gastroesophageal reflux disease) Glaucoma Hearing difficulty History of colonic polyps History of gastric ulcer History of migraine History of osteoporosis Hypokalemia Hypophosphatemia Hypothyroid IBS (irritable bowel syndrome) IFG (impaired fasting glucose) Incomplete bladder emptying Liver enzyme elevation Low back pain with sciatica Migraine Moderate aortic insufficiency Nasal polyps Osteoarthritis Osteoporosis Osteoporosis, senile Pessary maintenance Polymyalgia rheumatica Prolapse of female pelvic organs Pulmonary nodule Rectocele 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, reports no residual deficits Transaminitis Traumatic open wound of left lower leg with delayed healing Traumatic wound Urethral stricture Valvular heart disease Surgical History H/O colonoscopy H/O sinus surgery H/O tubal ligation History of cholecystectomy History of esophagogastroduodenoscopy (EGD) (~2011) History of hysterectomy with unilateral oopherectomy- 1978 History of lumbar laminectomy 2000 History of orthopedic surgery rhizotomy S/P cataract surgery Family History Mother Diabetes Ovarian cancer Hypertension Kidney disease Father Diabetes Cardiac disorder Hypertension Stroke Alcohol abuse Other specified hearing loss, bilateral Aunt Breast cancer Brother Cancer Alcohol abuse Daughter Alcohol abuse Anxiety Dementia Family/Other Depression Anxiety Other No significant family history Denies family history of Colorectal cancer Social History Smoking Status: Never smoker Second Hand Exposure: No; Hx Alcohol Use: No Hx Substance Use: No Preferred Language: Divehi Communication Ability: Effective Visual Impairment: Limited Hearing Ability: Normal 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 Beliefs That Will Affect Care: None marital status: / Current Living Situation: Spouse Current Living Situation Comment: granddaughter and her 2 children live in home current occupational status: retired How many Children do You have: 2 Feels Safe at Home: Yes Childhood Exposure to Second-Hand Smoke: No caffeine: No during the past year weight has: decreased > 10 lbs Dental Care, Regularly: Yes Physical Activity Frequency: 1-2 Times per Week Seatbelt Use: always Sunscreen Use: Yes Assistive Devices: None Review of Systems Review of Systems: as per HPI Physical Exam Physical Exam: General: Pleasant 81-year-old female who is relaxed in her hospital bed, no acute distress. HEENT: NCAT. - Eyes - Sclera are white, anicteric, and without injection. PERRL. - Mouth - MMM with no tonsillar edema or exudates. - Neck - supple, no JVD. Cardiac: Normal rate and regular rhythm; S1 and S2 present with no murmurs, rubs, or gallops. Pulmonary: Good respiratory effort with symmetric expansion of the chest. No use of accessory muscles. Lungs were clear to auscultation bilaterally with no crackles or wheezes. Abdominal: Normoactive bowel sounds. Abdomen was soft, nondistended, and non- tender to palpation. Extremities: Upper and lower extremities are warm and well perfused. Superficial laceration is wrapped in the LLE (sustained during EMS transportation per patient while being moved). Results & Data Results & Data ([facility]) Vital Signs (Past 12 Hours) Vital Signs Temp Pulse Pulse Resp BP BP Pulse Ox 09/23/21 16:46 83 16 110/64 90 09/23/21 15:54 36.1 C L 90 16 121/68 95 Laboratory Results Laboratory Results WBC 6.65 K/uL (4.8-10.8) 09/23/21 16:37 RBC 4.71 M/uL (4.2-5.4) 09/23/21 16:37 Hgb 15.1 g/dL (12.0-16.0) 09/23/21 16:37 Hct 44.2 % (37-47) 09/23/21 16:37 MCV 93.8 fL (80-100) 09/23/21 16:37 MCH 32.1 pg (25-34) 09/23/21 16:37 MCHC 34.2 g/dL (32-36) 09/23/21 16:37 RDW Std Deviation 48.1 fL (36.4-46.3) H 09/23/21 16:37 RDW Coeff of Sudha 14.0 % (11.5-14.5) 09/23/21 16:37 Plt Count 281 K/uL (130-400) 09/23/21 16:37 MPV 9.6 fL (7.4-10.4) 09/23/21 16:37 Immature Gran % (Auto) 0.3 % 09/23/21 16:37 Neut % (Auto) 75.5 % 09/23/21 16:37 Lymph % (Auto) 18.8 % 09/23/21 16:37 Maury % (Auto) 5.0 % 09/23/21 16:37 Eos % (Auto) 0.2 % 09/23/21 16:37 Baso % (Auto) 0.2 % 09/23/21 16:37 Neut # (Auto) 5.03 K/uL (1.4-6.5) 09/23/21 16:37 Lymph # (Auto) 1.25 K/uL (1.2-3.4) 09/23/21 16:37 Maury # (Auto) 0.33 K/uL (0.11-0.59) 09/23/21 16:37 Eos # (Auto) 0.01 K/uL (0-0.5) 09/23/21 16:37 Baso # (Auto) 0.01 K/uL (0-0.2) 09/23/21 16:37 Immature Gran # (Auto) 0.02 K/uL (0.00-0.02) 09/23/21 16:37 Sodium 130 mmol/L (136-145) L 09/23/21 16:37 Potassium 3.8 mmol/L (3.5-5.1) 09/23/21 18:18 Chloride 98 mmol/L (98-107) 09/23/21 16:37 Carbon Dioxide 25 mmol/L (21-32) 09/23/21 16:37 Anion Gap 7 (3-11) 09/23/21 16:37 BUN 16 mg/dl (6-23) 09/23/21 16:37 Creatinine 0.84 mg/dl (0.6-1.2) 09/23/21 16:37 Est Cr Clr Drug Dosing Not Reportable 09/23/21 16:37 Est GFR ( Amer) 75.5 ml/min 09/23/21 16:37 Est GFR (Non-Af Amer) 65.2 ml/min 09/23/21 16:37 BUN/Creatinine Ratio 19.0 (10-20) 09/23/21 16:37 Glucose 142 mg/dl (70-99(Fasting)) H 09/23/21 16:37 Calcium 9.2 mg/dl (8.5-10.1) 09/23/21 16:37 Total Bilirubin 0.5 mg/dl (0.2-1.0) 09/23/21 16:37 AST 53 U/L (13-39) H 09/23/21 18:18 ALT 30 U/L (7-52) 09/23/21 16:37 Alkaline Phosphatase 97 U/L (34-104) 09/23/21 16:37 Troponin I High Sens 22.9 pg/ml (0-14) H 09/23/21 21:11 Total Protein 7.2 gm/dl (6.0-8.3) 09/23/21 16:37 Albumin 4.0 gm/dl (3.4-5.0) 09/23/21 16:37 Globulin 3.2 gm/dl (2.5-4.0) 09/23/21 16:37 Albumin/Globulin Ratio 1.3 (0.9-2) 09/23/21 16:37 Lipase 21 U/L (11-82) 09/23/21 16:37 SARS-CoV-2, RNA, NAAT NEGATIVE (NEGATIVE) 09/23/21 22:42 Impressions Chest/Abdomen X-ray 09/23/21 17:38 PA CHEST RADIOGRAPH AND UPRIGHT AND SUPINE AP RADIOGRAPHS OF THE ABDOMEN CLINICAL HISTORY: Chest and abdominal pain. COMPARISON STUDY: Chest CT April 05, 2019. Chest radiograph June 25, 2021. CT of the abdomen and pelvis June 10, 2018. FINDINGS: No pneumothorax or pleural effusion is noted. Cardiomediastinal silhouette is stable. There is no evidence for pulmonary edema. There is minimal right midlung opacity. There is no free air. There are multiple loops of slightly dilated small bowel which measure up to 2.9 cm in caliber. Moderate amount stool within the colon is noted. A few air-fluid levels are noted on upright projection. IMPRESSION: 1. No free air. 2. Several loops of slightly dilated small bowel. This could reflect a partial small bowel obstruction or ileus. 3. Minimal opacity within the lateral right midlung. This favors atelectasis. However, follow-up PA and lateral chest radiographs in one month to ensure resolution are recommended. ACT 112: Negative or not required by law. Electronically signed by: Joselito Montes M.D. 09/23/2021 6:37 PM Supervising Physician Co-Signing Physician Notes Patient seen and examined, chart reviewed, case discussed with Dr. Haskins and I agree with his assessment and plan as documented above. In brief, patient is an 81-year-old female presenting with "gastritis attack"acute, severe epi gastric/substernal discomfort. Pain has since resolved. Patient is sitting up in bed enjoying a turkey sandwich. On physical exam patient is afebrile, hemodynamically stable, nontoxic in appearance. She is resting comfortably in bed and is presently pain-free Skinwarm, dry, intact, no rashes/lesions HEENTnormocephalic/atraumatic, pupils equal and reactive to light Heart+ S1, S2, regular, no murmur/rub/gallops Lungsclear to auscultation Abdomenpositive bowel sounds, soft, mild tenderness with deep palpation of the lower abdomen without rebound/guarding/peritoneal signs Extremitieswarm, well-perfused Labs and images reviewed. Significant for normal WBC = 6.65. Stable H/H. AST mildly elevated at 53. Remainder of liver panel and lipase otherwise normal. High-sensitivity troponin = 22.3, repeat at approximately 6 hours = 22.9 Assessment/plan: 81-year-old female with acute onset of epigastric/substernal chest discomfort. Suspect GI source. Possibly aggravated by recent prednisone usage. Protonix, Pepcid, Maalox and GI cocktail KUB in the a.m. Trend troponin Remainder of plan as above Resident Activity Tracking Resident Involvement: Resident Care Provided Care Provided: Adult Hospital Medicine (1) GERD (gastroesophageal reflux disease) Esophagitis presence: esophagitis presence not specified Qualified Code(s): K21.9 - Gastro-esophageal reflux disease without esophagitis (2) Asthma Asthma complication type: uncomplicated Asthma persistence: intermittent Asthma severity: mild Qualified Code(s): J45.20 - Mild intermittent asthma, uncomplicated
[2021-09-23] MEDS ORDERED: ACETAMINOPHEN 325 MG TAB PO PRN (20:53)
[2021-09-23] MEDS ORDERED: ENOXAPARIN INJ 40 MG/0.4 ML SYR SQ SCH (21:00)
[2021-09-23] MEDS ORDERED: ALUMINUM/MAGNESIUM SUSP 18 ML, LIDOCAINE VISCOUS 2% SOLN 6 ML, BARCODE IDENTIFIER 1 EA PO ONE (22:36)
[2021-09-23] MEDS ORDERED: GI COCKTAIL ED USE PO ONE (22:50)
[2021-09-24] MEDS ORDERED: traZODone HCL 50 MG TAB PO ONE (00:25)
[2021-09-24] MEDS ORDERED: LATANOPROST 0.005% OP SOLN 2.5 ML BTL OP STA (00:25)
[2021-09-24] MEDS ORDERED: GABAPENTIN 300 MG CAP PO STA (00:39)
[2021-09-24] MEDS ORDERED: NON-FORMULARY MEDICATION (Peg 400-Propylene Glycol [Systane Ultra] 0.4-0.3 % drops) OP PRN (01:24)
[2021-09-24] MEDS ORDERED: LEVOTHYROXINE SODIUM 75 MCG TABLET PO SCH ×2 (01:24→06:30)
[2021-09-24] MEDS ORDERED: traMADol HCL 50 MG TABLET PO SCH (01:24)
[2021-09-24] MEDS ORDERED: PANTOprazole 40 MG TAB PO SCH ×2 (01:24→09:00)
[2021-09-24] MEDS ORDERED: ALBUTEROL HFA 8 GM INHALER INH PRN (01:24)
[2021-09-24] MEDS ORDERED: ALUMINUM/MAGNESIUM SUSP 30 ML UDC PO PRN (01:24)
[2021-09-24] MEDS ORDERED: traMADol HCL 50 MG TABLET PO PRN (02:20)
[2021-09-24] MEDS ORDERED: ARTIFICIAL TEARS OP PRN (02:21)
[2021-09-24] MEDS: DORZOLAMIDE/TIMOLOL 22.3/6.8MG/ML 10 ML BTL OPB SCH ×2 (02:56→08:48)
--- NOTE | 2021-09-24 03:40 | Billing Data ---
Date of Service September 23, 2021 Coding Level of Care Code INT OBSERVATION CARE 50M LVL 2
[2021-09-24] MEDS: DULoxetine HCL 60 MG CAP PO SCH ×2 (04:06→08:38)
[2021-09-24] MEDS: TOPIRAMATE 100 MG TAB PO SCH ×2 (04:06→08:40)
[2021-09-24 04:18] LABS: Basophils # (auto) 0.01 K/uL (0-0.2); Basophils % (auto) 0.2 %; Eosinophils # (auto) 0.06 K/uL (0-0.5); Hematocrit (blood only) 41.2 % (37-47); Hemoglobin 14.2 g/dL (12.0-16.0); Immature Granulocytes # (auto) 0.03 K/uL (0.00-0.02); Immature Granulocytes % (auto) 0.5 %; Lymphocytes # (auto) 2.16 K/uL (1.2-3.4); Lymphocytes % (auto) 37.3 %; Mean Corpuscular Hgb Conc 34.5 g/dL (32-36); Mean Corpuscular Volume 92.8 fL (80-100); Mean Platelet Volume 9.7 fL (7.4-10.4); Monocytes % (auto) 15.5 %; Neutrophils # (auto) 2.63 K/uL (1.4-6.5); Neutrophils % (auto) 45.5 %; Platelet Count 286 K/uL (130-400); RDW Coefficient of Variation 13.9 % (11.5-14.5); RDW Standard Deviation 47.6 fL (36.4-46.3); Red Blood Count 4.44 M/uL (4.2-5.4); White Blood Count 5.79 K/uL (4.8-10.8)
[2021-09-24 04:42] LABS: Troponin I High Sensitivity 23.1 pg/ml (0-14)
[2021-09-24 05:00] LABS: BUN Creatinine Ratio 18.2 (10-20); Calcium 8.8 mg/dl (8.5-10.1); Est GFR (African American) 71.4 ml/min; Est GFR (Non-African American) 61.6 ml/min; Potassium 3.4 mmol/L (3.5-5.1)
[2021-09-24] MEDS ORDERED: FUROSEMIDE 20 MG TAB PO SCH (09:00)
[2021-09-24] MEDS ORDERED: CHOLECALCIFEROL 1,000 UNITS 25 MCG TAB PO SCH (09:00)
[2021-09-24] MEDS ORDERED: DOXYCYCLINE HYCLATE 100 MG CAP PO SCH (09:00)
[2021-09-24] MEDS ORDERED: FEXOFENADINE HCL 180 MG TAB PO SCH (09:00)
[2021-09-24] MEDS ORDERED: DOCUSATE SODIUM 100 MG CAP PO SCH (09:00)
[2021-09-24] MEDS ORDERED: SPIRONOLACTONE 25 MG TAB PO SCH (09:00)
[2021-09-24] MEDS ORDERED: FLUTICASONE/VILANTEROL 100/25MCG 14 PUFFS/INHALER INH SCH (09:00)
[2021-09-24] MEDS ORDERED: FLUTICASONE PROPIONATE NA SPR 16 GM BTL SCH (09:00)
[2021-09-24] MEDS ORDERED: CLOPIDOGREL BISULFATE 75 MG TAB PO SCH (09:00)
[2021-09-24] MEDS ORDERED: MULTIVITAMIN TAB PO SCH (09:00)
[2021-09-24] MEDS ORDERED: MONTELUKAST SODIUM 10 MG TABLET PO SCH (09:00)
[2021-09-24] MEDS ORDERED: FAMOTIDINE 20 MG TAB PO SCH (09:00)
[2021-09-24] MEDS ORDERED: predniSONE 2.5 MG TAB PO SCH (09:00)
--- NOTE | 2021-09-24 11:20 | XRay Report ---
KUB CLINICAL HISTORY: epigastric pain, f/u COMPARISON STUDY: Abdominal series September 23, 2021. FINDINGS: Prominent small bowel loops shown on prior exam are no longer identified. The bowel gas pat tern is normal. Postoperative findings within the right upper quadrant noted. Mild dextroscoliosis of the lumbar spine. IMPRESSION: Interval resolution of small bowel dilatation shown on prior exam. Normal bowel gas diogo roldan without evidence for a bowel obstruction. ACT 112: Negative or not required by law. Electronically signed by: Joselito Montes M.D. 09/24/2021 11:19 AM
--- NOTE | 2021-09-24 11:37 | Ultrasound Report ---
ULTRASOUND RIGHT UPPER QUADRANT ABDOMEN CLINICAL HISTORY: Status post cholecystectomy. COMPARISON STUDY: Abdominal ultrasound dated 06/11/2018. Abdominal CT dated 06/10/2018 TECHNIQUE: Real-time, grayscale, and color flow sonography of the right upper quadrant of the abdomen was performed. Images are reviewed in the transverse and longitudinal planes. FINDINGS: Liver: The liver is normal in size and echotexture. There is [id number] intrahepatic biliary du ctal dilatation. The main portal vein is patent. Gallbladder: The gallbladder is surgically absent. The common bile duct measures up to 1.0 cm in diam eter. An intraluminal filling defect is suspicious for choledocholithiasis. Pancreas: Not visualized due to overlying bowel gas. Right kidney: Survey images of the right kidney demonstrate normal size and echotexture. There is no hydronephrosis. Ascites: None. IMPRESSION: 1. Status post cholecystectomy. 2. There is intra and extrahepatic biliary ductal dilatation with probable choledocholithiasis. 3. Nonvisualization of the pancreas. ACT 112: Negative or not required by law. Electronically signed by: Quentin Aragon M.D. 09/24/2021 11:36 AM
--- NOTE | 2021-09-24 15:21 | Discharge Summary ---
Date of Service September 24, 2021 Admission HPI Per Admitting Provider This is an 81-year-old female with a history of migraines, chronic fatigue syndrome with fibromyalgia, exertional dyspnea with pHTN, cerebrovascular disease, coronary artery disease, polymyalgia rheumatica, osteoporosis, moderate aortic insufficiency, chronic use of steroids, asthma, hypothyroidism, GERD, pulmonary hypertension who presented to [facility] for evaluation of chest/epigastric pain. Earlier this afternoon, she was going in to see her PCP for follow-up of sinus symptoms when she developed sudden onset 9 out of 10 substernal crushing chest/epigastric pain. She describes this as a "gastritis attack." She said that she had mild nausea and chest tightness with breathing, but was not short of breath. She denied any lightheadedness or dizziness. Denied any chills or sweats. Given the severity of her pain, she was referred to the ER for further evaluation. Approximately 5 to 6 days ago, patient began doxycycline for treatment of acute bacterial rhinosinusitis. She was also initiated on prednisone 20 mg daily yesterday. On further review, patient reports a long-term history of these "gastritis attacks." She describes them the same as the episode today. She says she has n ot had 1 this severe in about 6 years. She does endorse that she gets some postprandial pain immediately after eating. She does endorse a long-term history of reflux, currently controlled on Pepcid and pantoprazole. She denies any darkly discolored/bloody stools. She endorses passing gas now. She says that her last bowel movement was yesterday and normal. She does report that back in time, in [place], she was hospitalized multiple times for this painshe reports having extensive cardiac work-up, which was reportedly negative, and as such the etiology was thought to be GI in nature. Medications reviewed and include albuterol as needed, alendronate 70 mg weekly, artificial tears, budesonide/formoterol, clopidogrel 75 mg, docusate, dorzolamidetimolol, duloxetine 60 mg, famotidine, fexofenadine, furosemide 20 mg daily, gabapentin 300 mg nightly, levothyroxine 75 mcg daily, Singulair, Protonix, prednisone 2.5 mg daily, spironolactone 25 mg, Topamax 100 mg twice daily, tramadol 50 mg, trazodone at nighttime. Upon arrival in the ER, patient was found to have normal vital signs. CBC largely normal. BMP revealing sodium 130, potassium 3.8, AST 53, high- sensitivity troponin 22.3, lipase 21. KUB demonstrated "several loops of slightly dilated small bowel. This could reflect a partial small bowel obstruction/ileus." Also observed was opacity within the lateral right midlung, favoring atelectasis, for which a 1-month PA radiograph follow-up was recommended. ECG demonstrated nonspecific T waves in V2/V3, new compared to 2019 study. Given concern for her chest pain, mildly bumped troponin, and some EKG changes, she was called for admission. Principal Diagnosis Epigastric pain -> Likely gastritis vs. choledocholithiasis Discharge Exam Constitutional WD/WN, vitals as above Eyes EOM intact bilaterally; no conjunctival abnormality ENMT external ear and nose normal, oropharynx normal Neck trachea midline, no thyromegaly normal visual inspection Respiratory normal respiratory effort, lungs clear to auscultation no respiratory distress Cardiovascular RRR, no murmur, no edema Gastrointestinal (Abdomen) Inspection/Auscultation: abdomen normal to inspection; abdomen not distended Percussion/Palpation: + abdomen tender (Epigastric area) and abdomen soft; no guarding and abdomen not rigid Musculoskeletal no cyanosis or clubbing, extremities motor strength 5/5 Skin no rashes, warm and dry Neurologic moves all extremities and awake Psychiatric Orientation: alert, oriented to person and cooperative Discharge Data Allergies Allergy/AdvReac Type Severity Reaction Status Date / Time aspirin Allergy Intermediate GI UPSET Verified 09/23/21 14:45 codeine Allergy Intermediate GI UPSET Verified 09/23/21 14:45 erythromycin base Allergy Intermediate GI UPSET Verified 09/23/21 14:45 Consultations 09/23/21 19:59 ED Decision to Admit Stat 09/24/21 13:33 Consult Gastroenterology Routine Procedures Performed Operation Date: 09/25/21 07:00 <No data on this case meets the specified criteria> Ordered Studies 09/24/21 10:17 US abdomen limited Routine Hospital Course (1) Chest pain: This is an 81-year-old female with a history of migraines, chronic fatigue syndrome with fibromyalgia, exertional dyspnea with pHTN, cerebrovascular disease, polymyalgia rheumatica, osteoporosis, moderate aortic insufficiency, chronic use of steroids, asthma, hypothyroidism, GERD, pulmonary hypertension who presented to [facility] for evaluation of chest/epigastric pain. Chest Pain Patient reports recurrence of severe, crushing like chest/epigastric pain that lasted 30 minutes before spontaneously resolving; not reproducible with exertion. She reports last having an episode this bad approximately 6 years ago. She also does report some epigastric discomfort after eating and a significant history of reflux. Work-up as follows KUB/CXR demonstrating no mediastinal changes; also showing several loops of slightly dilated small bowel Troponin elevated to 25 on arrival ; ECG demonstrating nonspecific T wave changes in V2/V3 compared to 2019 study Lipase, chemistries, CBC otherwise within normal limits History noted: Status post CCY, hysterectomy; +epigastric pain occasionally after eating; in 2018, Chest CT demonstrated mild coronary calcifications Dobutamine stress TTE 08/2020 (per PCP note): "normal wall motion response to dobutamine. Negative for dobutamine induced ischemia > 100% MPHR." At this time, primarily suspect GI in nature given recurrence of this over the past several years and recent bump in prednisone dosage x 1 day; differential includes esophageal spasms, reflux, peptic ulcers, less likely mesenteric ischemia. Her KUB demonstrating mildly dilated loops of bowel is notedclinically however, she is passing gas, had a bowel movement yesterday, reports no issues with eating over the past dayless likely ileus/SBO. Cardiac cause considered given repolarization abnormalities and mildly bumped troponin, but seems less likely. No clinical evidence of PE at this time. Mediastinum on chest x-ray not demonstrating any changes concerning for vascular cause. Trend troponin; if elevating, could consider obtaining repeat nuclear study to further evaluate for ischemia prior to discharge Continue PPI, Pepcid; add Maalox, GI cocktail as needed Obtain KUB in a.m. Low threshold to obtain CTA of the chest or CT abdomen pelvis should new chest/oxygenation changes occur or belly pain reappear, respectively Given reassuring exam, okay for PO intake for now. If symptoms recur, low threshold to make n.p.o. Order H. pylori stool test Would likely benefit from GI consultation as outpatient for possible EGD/esophageal manometry if above cardiac work-up is negative Admit to monitored bed -> U/s of biliary system showed shadowing, concerning for choledocholithiasis. GI consulted who recommended MRCP and NPO for possible ERCP tomorrow. However, patient did not want to stay another night. Risks of going home were discussed, and she was willing to take the risks and preferred following up as outpatient. She was counseled on concerning symptoms and the need to return to the hospital for fevers/chills, nausea, vomiting, worsening abdominal pain. -> Will f/u with outpatient GI for further imaging. (2) Elevated troponin: Elevated troponin Patient noted to have minimally elevated high-sensitivity troponin with nonspecific T wave abnormalities appreciated in the anterior leads compared to 2019 Trend was stable. No ACS. (3) AYE (obstructive sleep apnea): AYE Not currently on CPAP -- in process of getting sleep study as outpatient per PCP notes TTE with evidence of severe pulmonary hypertension (4) Polymyalgia rheumatica: Fibromyalgia/polymyalgia rheumatica Follows with Dr. Nunez - Rheumatology Continue low-dose prednisone Continue duloxetine, gabapentin Continue tramadol and appropriate (5) Pulmonary hypertension: Pulmonary HTN / Exertional dyspnea Chronic. Follows with [facility] cardiology for pHTN. Continue spironolactone, furosemide 20 mg daily TTE 07/2021 demonstrating severely elevated pulmonary artery pressure, estimated PASP 79 mmHg (6) Asthma: Asthma Follows with [facility] Continue Singulair, Symbicort, albuterol as needed (7) Hypothyroid: Hypothyroidism Continue levothyroxine (8) GERD (gastroesophageal reflux disease): GERD Continue pantoprazole 40mg b.i.d. Increase famotidine to 40mg daily Maalox p.r.n. (9) Cervicogenic headache: Chronic headache syndrome Continue topiramate (10) Moderate aortic insufficiency: Aortic Insufficiency Last TTE 07/2021 at [facility]: Moderate central aortic insufficiency (PHT 438 MS) Follows with [facility], Dr. Herrera (11) Sinusitis: Acute Bacterial Rhinosinusitis Diagnosed several days ago at [facility]; continue doxycycline 100 mg p.o. twice daily for now Flonase 2spr/day Code: Full code Dispo: MedSurg with telemetry Prophylaxis: Lovenox Diet: Heart healthy Total Time Total Time Spent Total Time Spent (In Minutes): 35 Discharge Plan Discharge Items Patient Disposition: Home - Self-Care Reason For Visit: CHEST PAIN R/O Discharge Diagnosis: Likely heartburn vs. stomach issues Activity: Resume your previous activity Non-emergency contact: Primary Care Provider and Service Station Helper Call non-emergency contact if: your pain is not controlled Follow-up/Referrals: Dalton Rendon MD [Primary Care Provider] - 10/02/21 2:00 pm (Appointment with Yeny De Leon PA-C) Devin Jara DO [Physician] - (Please see Dr. Jara or another member of the GI team at your convenience.) Yuri Herrera DO [Physician] - (Please see Dr. Herrera or Rosemary Rendon in r egards to your heart health.) Diet: Heart Healthy Addtl Attending Provider Instructions: Ms. Alvarenga, You were admitted to the hospital for some upper stomach/chest pain that the admitting team was worried was heart or GI related. We monitored your heart enzymes, and luckily, they do not show any indication that the episode of pain yesterday was a heart attack! Please follow up with Dr. Herrera or Rosemary Rendon at your earliest ability to make sure they do not feel any additional testing is needed. You have had a history of stomach issues. The long-term steroid you are on can often lead to stomach upset and irritation. On top of that alendronate and doxycycline are both also noted to be stomach irritants. Please continue taking your pantoprazole and famotidine to help relieve your stomach issues. Your ultrasound also showed a possible stone in the common bile duct. We planned to do an MRI of your abdomen and consider a procedure to remove the stone. You did not want to stay in the hospital for this, which is your choice. If you have fevers, chills, nausea, vomiting, or increasing abdominal pain, please come to the hospital right away! Please see Catherine Hodges, or another member of the [facility] GI team to follow up on this possible stone. Pending Studies at Discharge: No Stand-Alone Forms: My [facility] [employer] [facility], Smoking Cessation Medications and DC Order Prescriptions: Continued Orazinc 25 mg zinc (110 mg) tablet 25 mg PO DAILY RF: 0 topiramate 50 mg tablet 100 mg PO BID 90 Days Qty: 360 RF: 2 prednisone 2.5 mg tablet 2.5 mg PO DAILY Qty: 90 RF: 3 clopidogrel 75 mg tablet 75 mg PO QAM Qty: 90 RF: 3 latanoprost 0.005 % drops 1 drops OP QPM RF: 0 albuterol sulfate 90 mcg/actuation HFA aerosol inhaler 2 puff INH Q6H PRN (Reason: shortness of breath or wheezing) Qty: 3 RF: 3 budesonide-formoterol [Symbicort] 160-4.5 mcg/actuation HFA aerosol inhaler 2 puff inhalation BID Qty: 3 RF: 3 furosemide 20 mg tablet 20 mg PO QAM RF: 0 Systane Gel 0.3 % gel 1 drp ophthalmic (eye) TID RF: 0 Systane Ultra 0.4-0.3 % drops 1 drp ophthalmic (eye) TID RF: 0 spironolactone 25 mg tablet 12.5 mg PO QAM RF: 0 (DME) Portable Oxygen Misc See Rx Instructions .Route Qty: 1 RF: 0 montelukast 10 mg tablet 10 mg PO DAILY Qty: 30 RF: 11 alendronate [Fosamax] 70 mg tablet 70 mg PO WK RF: 0 gabapentin 300 mg capsule 300 mg PO HS 90 Days Qty: 90 RF: 1 doxycycline hyclate 100 mg capsule 100 mg PO BID RF: 0 prednisone 20 mg tablet 20 mg PO .DAILY FOR 5 DAYS RF: 0 multivitamin Tablet 1 tab PO QAM RF: 0 trazodone 100 mg tablet 1 tab PO QPM RF: 0 Vitamin D3 4,000 unit Capsule 4,000 unit PO DAILY RF: 0 tramadol 50 mg tablet 50 mg PO AMPM RF: 0 duloxetine 60 mg capsule,delayed release(DR/EC) 60 mg PO BID RF: 0 fexofenadine 60 mg tablet 180 mg PO DAILY RF: 0 dorzolamide-timolol 22.3-6.8 mg/mL drops 1 drp OPB BID RF: 0 docusate sodium 100 mg Capsule 100 mg PO DAILY RF: 0 magnesium 250 mg Tablet 250 mg PO DAILY RF: 0 levothyroxine 75 mcg tablet 75 mcg PO DAILY RF: 0 famotidine 20 mg tablet 20 mg PO HS RF: 0 pantoprazole 40 mg tablet,delayed release (DR/EC) 40 mg PO BID RF: 0 cholecalciferol (vitamin D3) 100 mcg (4,000 unit) Capsule 100 mcg PO DAILY RF: 0 Discharge Orders: Discharge Order (Routine); Ordered 09/24/21 Ordered By: Jan Luz Admission Data Admit Date/Time: 09/23/21 20:54 Attending Provider: Jan Luz Admit Provider: Rivas Haskins Primary Care Provider: Dalton Rendon Other Providers: Jan Luz ; Nirali vEerett Other Interventions: Discharge Summary Assessment (RN) Last Done: 09/24/21 15:12 Coding Level of Care Code 07091 OBS Care - Discharge Diagnoses Chest pain R07.9 Elevated troponin R77.8 AYE (obstructive sleep apnea) G47.33 Polymyalgia rheumatica M35.3 Pulmonary hypertension I27.20 Asthma J45.20 Asthma complication type: uncomplicated Asthma persistence: intermittent Asthma severity: mild Hypothyroid E03.9 GERD (gastroesophageal reflux disease) K21.9 Esophagitis presence: esophagitis presence not specified Cervicogenic headache R51 Moderate aortic insufficiency I35.1 Sinusitis J32.9
--- NOTE | 2021-09-24 15:41 | Anesthesiology Consultation ---
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 No ACS. Dobutamine stress TTE 08/2020 (per PCP note): "normal wall motion response to dobutamine. Negative for dobutamine induced ischemia > 100% MPHR." History Surgery Operation Date: 09/25/21 07:00 Proposed Procedures p Endoscopic Retrograde Cholangiopancreatogram - Abdiel Randall MD Height/Weight Height: 5 ft Weight: 54.8 kg Allergies Allergy/AdvReac Type Severity Reaction Status Date / Time aspirin Allergy Intermediate GI UPSET Verified 09/23/21 14:45 codeine Allergy Intermediate GI UPSET Verified 09/23/21 14:45 erythromycin base Allergy Intermediate GI UPSET Verified 09/23/21 14:45 Medications Home Medications Medication Instructions Recorded Confirmed Last Taken cholecalciferol (vitamin D3) 100 4,000 unit PO DAILY 06/10/18 09/23/21 Unknown mcg (4,000 unit) capsule (Vitamin D3) multivitamin 1 tab PO QAM 06/10/18 09/23/21 Unknown trazodone 100 mg tablet 1 tab PO QPM 06/10/18 09/23/21 Unknown tramadol 50 mg tablet 50 mg PO AMPM tab 02/13/19 09/23/21 Unknown latanoprost 0.005 % eye drops 1 drops OP QPM 03/03/19 09/23/21 Unknown alendronate 70 mg tablet (Fosamax) 70 mg PO WK tab 01/17/20 09/23/21 Unknown topiramate 50 mg tablet 100 mg PO BID 90 Days #360 tab 10/03/20 09/23/21 Unknown dorzolamide 22.3 mg-timolol 6.8 1 drp OPB BID 10/07/20 09/23/21 Unknown mg/mL eye drops prednisone 2.5 mg tablet 2.5 mg PO DAILY #90 tab 10/23/20 09/23/21 Unknown zinc sulfate 25 mg zinc (110 mg) 25 mg PO DAILY 12/11/20 09/23/21 Unknown tablet (Orazinc) duloxetine 60 mg capsule,delayed 60 mg PO BID cap 01/31/21 09/23/21 Unknown release gabapentin 300 mg capsule 300 mg PO HS 90 Days #90 cap 01/31/21 09/23/21 Unknown albuterol sulfate 90 mcg/actuation 2 puff INH Q6H PRN #3 inhaler 03/11/21 09/23/21 Unknown aerosol inhaler clopidogrel 75 mg tablet 75 mg PO QAM #90 tab 04/15/21 09/23/21 Unknown montelukast 10 mg tablet 10 mg PO DAILY #30 tab 05/13/21 09/23/21 Unknown budesonide-formoterol HFA 160 2 puff INHALATION BID #3 inhaler 06/25/21 09/23/21 Unknown mcg-4.5 mcg/actuation aerosol inhaler (Symbicort) Portable Oxygen #1 ea 09/18/21 09/23/21 Unknown artificial tears(hypromellose) 0.3 1 drp OPHTHALMIC (EYE) TID g 09/18/21 09/23/21 Unknown % eye gel (Systane Gel) fexofenadine 60 mg tablet 180 mg PO DAILY tab 09/18/21 09/23/21 Unknown furosemide 20 mg tablet 20 mg PO QAM 09/18/21 09/23/21 Unknown peg 400-propylene glycol 0.4 %-0.3 1 drp OPHTHALMIC (EYE) TID 09/18/21 09/23/21 Unknown % eye drops (Systane Ultra) spironolactone 25 mg tablet 12.5 mg PO QAM 09/18/21 09/23/21 Unknown cholecalciferol (vitamin D3) 100 100 mcg PO DAILY 09/23/21 09/23/21 Unknown mcg (4,000 unit) capsule docusate sodium 100 mg capsule 100 mg PO DAILY 09/23/21 09/23/21 Unknown doxycycline hyclate 100 mg capsule 100 mg PO BID 09/23/21 09/23/21 Unknown famotidine 20 mg tablet 20 mg PO HS 09/23/21 09/23/21 Unknown levothyroxine 75 mcg tablet 75 mcg PO DAILY 09/23/21 09/23/21 Unknown magnesium 250 mg tablet 250 mg PO DAILY 09/23/21 09/23/21 Unknown pantoprazole 40 mg tablet,delayed 40 mg PO BID 09/23/21 09/23/21 Unknown release prednisone 20 mg tablet 20 mg PO .DAILY FOR 5 DAYS 09/23/21 09/23/21 Unknown Active Medications Generic Name Dose Route Start Last Admin Trade Name Freq PRN Reason Stop Dose Admin Acetaminophen 650 mg 09/23/21 20:53 09/24/21 12:18 Acetaminophen 325 Mg Tab PO 10/23/21 20:52 650 mg Q4H PRN Administration pain/fever Clopidogrel Bisulfate 75 mg 09/24/21 09:00 09/24/21 08:40 Clopidogrel Bisulfate 75 Mg Tab PO 10/24/21 08:59 75 mg QAM INES Administration Docusate Sodium 100 mg 09/24/21 09:00 09/24/21 08:40 Docusate Sodium 100 Mg Cap PO 10/24/21 08:59 100 mg DAILY INES Administration Dorzolamide/Timolol 1 drops 09/24/21 01:24 09/24/21 08:48 Dorzolamide/Timolol 22.3/6.8mg/Ml 10 Ml Btl OPB 10/24/21 01:23 1 drops BID INES Administration Doxycycline Hyclate 100 mg 09/24/21 09:00 09/24/21 08:40 Doxycycline Hyclate 100 Mg Cap PO 09/25/21 09:01 100 mg BID INES Administration Duloxetine HCl 60 mg 09/24/21 01:24 09/24/21 08:38 Duloxetine Hcl 60 Mg Cap PO 10/24/21 01:23 60 mg BID INES Administration Enoxaparin Sodium 40 mg 09/23/21 21:00 09/23/21 22:56 Enoxaparin Inj 40 Mg/0.4 Ml Syr SQ 10/23/21 20:59 40 mg Q24H INES Administration Fexofenadine HCl 180 mg 09/24/21 09:00 09/24/21 08:39 Fexofenadine Hcl 180 Mg Tab PO 10/24/21 08:59 180 mg DAILY INES Administration Fluticasone Propionate 2 sprays 09/24/21 09:00 09/24/21 08:38 Fluticasone Propionate Na Spr 16 Gm Btl NA 10/24/21 08:59 2 sprays DAILY INES Administration Fluticasone/Vilanterol 1 puffs 09/24/21 09:00 09/24/21 08:38 Fluticasone/Vilanterol 100/25mcg 14 Puffs/Inhaler INH 10/24/21 08:59 1 puffs DAILY INES Administration Furosemide 20 mg 09/24/21 09:00 09/24/21 08:39 Furosemide 20 Mg Tab PO 10/24/21 08:59 20 mg QAM INES Administration Levothyroxine Sodium 75 mcg 09/24/21 06:30 09/24/21 05:42 Levothyroxine Sodium 75 Mcg Tablet PO 10/24/21 06:29 75 mcg DAILYBB INES Administration Montelukast Sodium 10 mg 09/24/21 09:00 09/24/21 08:40 Montelukast Sodium 10 Mg Tablet PO 10/24/21 08:59 10 mg DAILY INES Administration Multivitamins 1 tab 09/24/21 09:00 09/24/21 08:40 Multivitamin Tab PO 10/24/21 08:59 1 tab QAM INES Administration Pantoprazole Sodium 40 mg 09/24/21 09:00 09/24/21 08:40 Pantoprazole 40 Mg Tab PO 10/24/21 08:59 40 mg BID INES Administration Prednisone 2.5 mg 09/24/21 09:00 09/24/21 08:40 Prednisone 2.5 Mg Tab PO 10/24/21 08:59 2.5 mg DAILY INES Administration Spironolactone 12.5 mg 09/24/21 09:00 09/24/21 08:40 Spironolactone 25 Mg Tab PO 10/24/21 08:59 12.5 mg QAM INES Administration Topiramate 100 mg 09/24/21 01:24 09/24/21 08:40 Topiramate 100 Mg Tab PO 10/24/21 01:23 100 mg BID INES Administration Tramadol HCl 50 mg 09/24/21 02:20 09/24/21 05:41 Tramadol Hcl 50 Mg Tablet PO 10/24/21 01:23 50 mg BID PRN Administration pain Vitamin D 4,000 units 09/24/21 09:00 09/24/21 08:40 Cholecalciferol 1,000 Units 25 Mcg Tab PO 10/24/21 08:59 4,000 units DAILY INES Administration Past Medical History Medical History 3-vessel coronary artery disease Abnormal computerized tomography of biliary tract Abnormal LFTs Acute rhinosinusitis Anxiety Aortic valve insufficiency Arthritis Asthma Chronic insomnia Chronic pain Current chronic use of systemic steroids Cystocele Endometriosis Fibromyalgia Gastrointestinal hemorrhage with melena GERD (gastroesophageal reflux disease) Glaucoma Hearing difficulty History of colonic polyps History of gastric ulcer History of migraine History of osteoporosis Hypokalemia Hypophosphatemia Hypothyroid IBS (irritable bowel syndrome) IFG (impaired fasting glucose) Incomplete bladder emptying Liver enzyme elevation Low back pain with sciatica Migraine Moderate aortic insufficiency Nasal polyps Osteoarthritis Osteoporosis Osteoporosis, senile Pessary maintenance Polymyalgia rheumatica Prolapse of female pelvic organs Pulmonary nodule Rectocele 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, reports no residual deficits Transaminitis Traumatic open wound of left lower leg with delayed healing Traumatic wound Urethral stricture Valvular heart disease Past Family History Family History Mother Diabetes Ovarian cancer Hypertension Kidney disease Father Diabetes Cardiac disorder Hypertension Stroke Alcohol abuse Other specified hearing loss, bilateral Aunt Breast cancer Brother Cancer Alcohol abuse Daughter Alcohol abuse Anxiety Dementia Family/Other Depression Anxiety Other No significant family history Denies family history of Colorectal cancer Past Surgical History Surgical History H/O colonoscopy H/O sinus surgery H/O tubal ligation History of cholecystectomy History of esophagogastroduodenoscopy (EGD) (~2011) History of hysterectomy with unilateral oopherectomy- 1978 History of lumbar laminectomy 2000 History of orthopedic surgery rhizotomy S/P cataract surgery Social History Smoking Status: Former smoker tobacco type: cigarettes Smoking cigarettes per day: 5 Do You Dip or Chew Tobacco: No Smoking End Date: 1974 Hx Alcohol Use: No Hx Substance Use: Yes (Medical Marijuana) substance use type: marijuana Substance Use Type Other:: medical use Last Used Substance: Days (ago) Last Used Substance Other:: 2019 Physical Exam Vital Signs Last Vital Signs Temp 97.7 F 09/24/21 15:34 Pulse 60 09/24/21 15:34 Resp 19 09/24/21 15:34 BP 146/81 H 09/24/21 15:34 Pulse Ox 95 09/24/21 15:34 Testing Laboratory Results 09/24/21 03:42 09/24/21 03:42 Electrocardiogram Date: 09/24/21 Normal sinus rhythm, rate 60 bpm Low voltage QRS Borderline ECG When compared with ECG of 23-SEP-2021 17:48, (unconfirmed) Questionable change in QRS axis Non-specific change in ST segment in Inferior leads T wave inversion now evident in Inferior leads Chest X-Ray Date: 06/25/21 Findings: + NAD Echocardiogram Date: 07/25/21 Normal LV size and systolic function with no regional wall motion abnormalities Mild LVH LV EF 60% Grade 1 diastolic dysfunction of LV RV dilation RV systolic function is normal with RVH Moderate central aortic insufficiency Moderate TR Severely elevated pulmonary artery pressures, estimated PASP 79 mmHg Prior study from 07/17/20 the PA pressure is now severe (increased from 55 to 79 mmHg)
[2021-09-24] MEDS ORDERED: LATANOPROST 0.005% OP SOLN 2.5 ML BTL OP SCH (21:00)
[2021-09-24] MEDS ORDERED: GABAPENTIN 300 MG CAP PO SCH (21:00)
[2021-09-24] MEDS ORDERED: FAMOTIDINE 40 MG TABLET PO SCH (21:00)
[2021-09-24] MEDS ORDERED: traZODone HCL 100 MG TAB PO SCH (21:00)
--- NOTE | 2021-09-25 15:23 | Electrocardiogram Report ---
Test Reason : Blood Pressure : / mmHG Vent. Rate : 078 BPM Atrial Rate : 078 BPM P-R Int : 166 ms QRS Dur : 058 ms QT Int : 400 ms P-R-T Axes : 074 052 053 degrees QTc Int : 456 ms Poor data quality, interpretation may be adversely affected Normal sinus rhythm Low voltage QRS Nonspecific T wave abnormality Abnormal ECG When compared with ECG of 10-JUN-2018 17:16, Nonspecific T wave abnormality now evident in Anterior leads Confirmed by Travis Ojeda ([id number]) on 09/25/2021 3:22:53 PM Referred By: REFERRED SELF Confirmed By:Travis Ojeda
--- NOTE | 2021-09-25 15:44 | Electrocardiogram Report ---
Test Reason : Blood Pressure : / mmHG Vent. Rate : 060 BPM Atrial Rate : 060 BPM P-R Int : 178 ms QRS Dur : 090 ms QT Int : 466 ms P-R-T Axes : -19 -07 002 degrees QTc Int : 466 ms Poor data quality, interpretation may be adversely affected Normal sinus rhythm Low voltage QRS Borderline ECG When compared with ECG of 23-SEP-2021 17:48, (unconfirmed) Questionable change in QRS axis Non-specific change in ST segment in Inferior leads T wave inversion now evident in Inferior leads Confirmed by Travis Ojeda ([id number]) on 09/25/2021 3:44:20 PM Referred By: REFERRED SELF Confirmed By:Travis Ojeda
== END 2021-09-24 15:50 | disposition home or self-care (01) ==
LOC: ED 15:41 → 2N 15:41 → SUATTDRO 20:54 → 2N 09-24 00:43

== ENCOUNTER 2021-11-10 19:45 | Inpatient (IN) ==
[2021-11-10] MEDS ORDERED: PANTOprazole 80 MG in DEXTROSE 5% 100 ML IV ONE (20:23)
[2021-11-10] MEDS ORDERED: PANTOPRAZOLE BOLUS/DRIP 1 EACH IV STA (20:23)
[2021-11-10] MEDS ORDERED: SODIUM CHLORIDE 0.9% 250 ML IV PRN (20:23)
[2021-11-10 21:14] LABS: INR 1.1 (0.9-1.1); Partial Thromboplastin Ratio 0.9; Prothrombin Time 11.5 Seconds (9.0-12.0)
[2021-11-10] MEDS: PANTOprazole 40 MG in DEXTROSE 5% 100 ML IV SCH (21:20)
[2021-11-10 21:21] LABS: Basophils # (auto) 0.05 K/uL (0-0.2); Basophils % (auto) 0.9 %; Eosinophils % (auto) 1.7 %; Hematocrit (blood only) 38.2 % (37-47); Hemoglobin 12.9 g/dL (12.0-16.0); Immature Granulocytes # (auto) 0.03 K/uL (0.00-0.02); Immature Granulocytes % (auto) 0.5 %; Lymphocytes # (auto) 1.22 K/uL (1.2-3.4); Lymphocytes % (auto) 20.9 %; Mean Corpuscular Hemoglobin 31.2 pg (25-34); Mean Corpuscular Hgb Conc 33.8 g/dL (32-36); Mean Corpuscular Volume 92.3 fL (80-100); Mean Platelet Volume 10.1 fL (7.4-10.4); Monocytes % (auto) 8.5 %; Neutrophils # (auto) 3.95 K/uL (1.4-6.5); Neutrophils % (auto) 67.5 %; Platelet Count 274 K/uL (130-400); RDW Coefficient of Variation 14.4 % (11.5-14.5); RDW Standard Deviation 48.6 fL (36.4-46.3); Red Blood Count 4.14 M/uL (4.2-5.4); White Blood Count 5.85 K/uL (4.8-10.8)
[2021-11-10 21:49] LABS: Troponin I High Sensitivity 100.1 pg/ml (0-14)
[2021-11-10 21:58] LABS: Alanine Aminotransferase 225 U/L (7-52); Albumin Globulin Ratio 1.2 (0.9-2); Albumin Level 3.5 gm/dl (3.4-5.0); Alkaline Phosphatase 212 U/L (34-104); Anion Gap 9 (3-11); Aspartate Aminotransferase 176 U/L (13-39); BUN Creatinine Ratio 17.4 (10-20); Blood Urea Nitrogen 16 mg/dl (6-23); Calcium 8.5 mg/dl (8.5-10.1); Carbon Dioxide 22 mmol/L (21-32); Chloride 102 mmol/L (98-107); Est GFR (African American) 67.7 ml/min; Est GFR (Non-African American) 58.4 ml/min; Glucose 178 mg/dl (70-99(Fasting)); Lipase 66 U/L (11-82); Sodium 133 mmol/L (136-145); Total Protein 6.5 gm/dl (6.0-8.3)
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
[2021-11-10] MEDS: SODIUM CHLORIDE 0.9% 1000ML 1,000 ML IV SCH (23:19)
--- NOTE | 2021-11-10 23:26 | Emergency Department Note ---
Impression & Plan UGIB (upper gastrointestinal bleed), S/P ERCP ED Provider Note CHIEF COMPLAINT: Bloody bowel movement, abdominal pain HISTORY OF PRESENT ILLNESS: This 81-year-old female patient presents to the emergency department with complaints of bloody bowel movements x2 today. 2 days ago the patient had an ERCP for choledocholithiasis. She also had several polyps removed from the stomach. She states she has fibromyalgia and always has pain and a setback in her symptoms after any procedure. She did have a bloody bowel movement this morning and began this evening, bring her to the ED. She denies any nausea or vomiting. She has not had any fevers. REVIEW OF SYSTEMS: A review of systems was performed with positives and pertinent negatives listed in the history of present illness. 10 systems were reviewed and are otherwise negative. ALLERGIES: see below MEDICATIONS: see below PMH: see below SOCIAL HISTORY: see below DDx: Diverticulosis, AVM, coagulopathy, colitis, inflammatory bowel disease, malignancy, Maddison-Hurtado tear, esophagitis, peptic ulcer disease, variceal bleed, gastritis, epistaxis, fissure, hemorrhoids, as well as other pathologies. PHYSICAL EXAM: Vital signs reviewed. Noted to have mild hypotension. General: Well-appearing 81-year-old female, in no significant distress. HEENT: No scleral icterus, PERRLA, neck supple. Ecchymotic area noted to the lateral right eye. Cardiovascular: Regular rate and rhythm, no extra sounds. Pulmonary: Clear to auscultation bilaterally, normal work of breathing. Abdomen: Soft, nontender, nondistended, positive bowel sounds. Musculoskeletal: Atraumatic, no peripheral edema. Neurologic: Patient awake alert and oriented x 3, speech is clear Rectal: Guaiac positive melanotic stools. Normal rectal mucosa Skin: Warm, dry, no rash EMERGENCY DEPARTMENT COURSE/MDM: This patient was evaluated and appeared to be in no significant distress. IV access was obtained and laboratory work was drawn. The patient was placed on front line supervisor. Patient is noted to be mildly hypotensive. Stool is guaiac positive and melanotic. Protonix was initiated. Patient was typed and crossed for 2 units to hold. Hemoglobin is noted to be 12.9. I did discuss the case with the hospitalist service who will evaluate the patient for admission and further management. Case was discussed with gastroenterology, Dr. Diaz. He has requested CT imaging with IV contrast secondary to the elevation in LFTs and recent sphincterotomy. This study is ordered and is pending. Dr. Delgado of the hospitalist service was made aware. Patient should be kept n.p.o. for likely endoscopy tomorrow. MONITORING: An order for cardiac monitoring was placed and the patient is noted to be in a NSR at 82 beats per minute. RADIOLOGY: See below EKG: Sinus tachycardia 105 bpm. Low voltage QRS. Left posterior Fascicular block. Nonspecific ST and T wave abnormality in the anterior and lateral leads. No PVC, no PAC. Possible previous inferior infarct. 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 Surgical History H/O sinus surgery H/O tubal ligation History of cholecystectomy History of esophagogastroduodenoscopy (EGD) (~2011) History of hysterectomy History of lumbar laminectomy History of orthopedic surgery S/P cataract surgery Family History Mother Diabetes Ovarian cancer Hypertension Kidney disease Father Diabetes Cardiac disorder Hypertension Stroke Alcohol abuse Other specified hearing loss, bilateral Aunt Breast cancer Brother Cancer Alcohol abuse Daughter Alcohol abuse Anxiety Dementia Family/Other Depression Anxiety Other No significant family history Denies family history of Colorectal cancer Social History Smoking Status: Former smoker Cigarettes Per Day: 5; Second Hand Exposure: No; Hx Alcohol Use: No Hx Substance Use: No Preferred Language: German Communication Ability: Effective Visual Impairment: Limited Hearing Ability: Normal 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 Required: No Beliefs That Will Affect Care: None marital status: / Current Living Situation: Family Current Living Situation Comment: GRAND DAUGHTER AND SON WILL HELP current occupational status: retired How many Children do You have: 1 Feels Safe at Home: Yes Childhood Exposure to Second-Hand Smoke: No caffeine: No during the past year weight has: decreased > 10 lbs Dental Care, Regularly: Yes Physical Activity Frequency: 1-2 Times per Week Seatbelt Use: always Sunscreen Use: Yes Assistive Devices: None Allergies Allergies Allergy/AdvReac Type Severity Reaction Status Date / Time aspirin Allergy Intermediate GI UPSET Verified 11/10/21 22:27 codeine Allergy Intermediate GI UPSET Verified 11/10/21 22:27 erythromycin base Allergy Intermediate GI UPSET Verified 11/10/21 22:27 Home Meds Home Medications Medication Instructions Recorded Confirmed cholecalciferol (vitamin D3) 100 4,000 unit PO DAILY 06/10/18 11/10/21 mcg (4,000 unit) capsule (Vitamin D3) multivitamin 1 tab PO QAM 06/10/18 11/10/21 trazodone 100 mg tablet 1 tab PO QPM 06/10/18 11/10/21 tramadol 50 mg tablet 50 mg PO AMPM tab 02/13/19 11/10/21 latanoprost 0.005 % eye drops 1 drops OP QPM 03/03/19 11/10/21 alendronate 70 mg tablet (Fosamax) 70 mg PO WK tab 01/17/20 11/10/21 dorzolamide 22.3 mg-timolol 6.8 1 drp OPB BID 10/07/20 11/10/21 mg/mL eye drops zinc sulfate 25 mg zinc (110 mg) 25 mg PO DAILY 12/11/20 11/10/21 tablet (Orazinc) duloxetine 60 mg capsule,delayed 120 mg PO QAM cap 01/31/21 11/10/21 release (Cymbalta) artificial tears(hypromellose) 0.3 1 drp OPHTHALMIC (EYE) TID g 09/18/21 11/10/21 % eye gel (Systane Gel) fexofenadine 60 mg tablet 180 mg PO QAM tab 09/18/21 11/10/21 furosemide 20 mg tablet 20 mg PO QAM 09/18/21 11/10/21 peg 400-propylene glycol 0.4 %-0.3 1 drp OPHTHALMIC (EYE) TID 09/18/21 11/10/21 % eye drops (Systane Ultra) spironolactone 25 mg tablet 12.5 mg PO QAM 09/18/21 11/10/21 docusate sodium 100 mg capsule 100 mg PO QAM 09/23/21 11/10/21 famotidine 20 mg tablet 20 mg PO HS 09/23/21 11/10/21 levothyroxine 75 mcg tablet 75 mcg PO QAM 09/23/21 11/10/21 magnesium 250 mg tablet 250 mg PO QAM 09/23/21 11/10/21 cholecalciferol (vitamin D3) 25 25 mcg PO DAILY 11/10/21 11/10/21 mcg (1,000 unit) tablet (Vitamin D3) clopidogrel 75 mg tablet 75 mg PO .HOLD 11/10/21 11/10/21 montelukast 10 mg tablet 10 mg PO HS 11/10/21 11/10/21 Previous Rx's Medication Instructions Recorded topiramate 50 mg tablet 100 mg PO BID 90 Days #360 tab 10/03/20 prednisone 2.5 mg tablet 2.5 mg PO DAILY #90 tab 10/23/20 gabapentin 300 mg capsule 300 mg PO HS 90 Days #90 cap 01/31/21 albuterol sulfate 90 mcg/actuation 2 puff INH Q6H PRN #3 inhaler 03/11/21 aerosol inhaler budesonide-formoterol HFA 160 2 puff INHALATION BID #3 inhaler 06/25/21 mcg-4.5 mcg/actuation aerosol inhaler (Symbicort) pantoprazole 40 mg tablet,delayed See Rx Instructions .ROUTE 09/27/21 release .COMPLEX #180 tablet Results & Data (ED) Vital Signs Vital Signs - 24 hr 11/10/21 19:50 11/10/21 20:49 11/10/21 21:00 Temperature 36.1 C L Temperature Source Temporal Artery Scan Pulse Rate 86 101 H 97 H Pulse Rate from SpO2 Sensor 100 H 98 H Respiratory Rate 18 21 20 Blood Pressure 99/65 L 102/60 99/55 L Blood Pressure Mean 76 74 69 Blood Pressure Position Sitting Pulse Oximetry 100 93 90 Oxygen Delivery Method Room Air Room Air Sepsis Recent Fever Within 48 Hours No Sepsis New/Unexplained Change in Mental Status N/A Sepsis Action Taken by Nursing No Action Required 11/10/21 22:02 11/10/21 22:04 11/10/21 22:30 Temperature Temperature Source Pulse Rate 93 H 92 H 86 Pulse Rate from SpO2 Sensor 92 H 86 Respiratory Rate 14 15 14 Blood Pressure 82/42 L 99/59 L 98/51 L Blood Pressure Mean 55 72 66 Blood Pressure Position Pulse Oximetry 91 92 92 Oxygen Delivery Method Room Air Room Air Room Air Sepsis Recent Fever Within 48 Hours Sepsis New/Unexplained Change in Mental Status Sepsis Action Taken by Nursing 11/10/21 23:00 Temperature Temperature Source Pulse Rate 82 Pulse Rate from SpO2 Sensor 82 Respiratory Rate 16 Blood Pressure 93/62 L Blood Pressure Mean 72 Blood Pressure Position Pulse Oximetry 90 Oxygen Delivery Method Room Air Sepsis Recent Fever Within 48 Hours Sepsis New/Unexplained Change in Mental Status Sepsis Action Taken by Jail Medications Current Medication List: was personally reviewed by me Laboratory Data Attestation: I reviewed the patient's lab results. Result diagrams: 11/15/21 06:57 11/15/21 06:57 Lab Results 11/10/21 11/10/21 11/10/21 Range/Units 20:45 20:45 20:45 WBC 5.85 (4.8-10.8) K/uL RBC 4.14 L (4.2-5.4) M/uL Hgb 12.9 (12.0-16.0) g/dL Hct 38.2 (37-47) % MCV 92.3 (80-100) fL MCH 31.2 (25-34) pg MCHC 33.8 (32-36) g/dL RDW Std Deviation 48.6 H (36.4-46.3) fL RDW Coeff of Sudha 14.4 (11.5-14.5) % Plt Count 274 (130-400) K/uL MPV 10.1 (7.4-10.4) fL Immature Gran % (Auto) 0.5 % Neut % (Auto) 67.5 % Lymph % (Auto) 20.9 % Rice % (Auto) 8.5 % Eos % (Auto) 1.7 % Baso % (Auto) 0.9 % Neut # (Auto) 3.95 (1.4-6.5) K/uL Lymph # (Auto) 1.22 (1.2-3.4) K/uL Rice # (Auto) 0.50 (0.11-0.59) K/uL Eos # (Auto) 0.10 (0-0.5) K/uL Baso # (Auto) 0.05 (0-0.2) K/uL Immature Gran # (Auto) 0.03 H (0.00-0.02) K/uL PT (9.0-12.0) Seconds INR (0.9-1.1) APTT (21.0-31.0) Seconds PTT Ratio Sodium 133 L (136-145) mmol/L Potassium 4.0 (3.5-5.1) mmol/L Chloride 102 (98-107) mmol/L Carbon Dioxide 22 (21-32) mmol/L Anion Gap 9 (3-11) BUN 16 (6-23) mg/dl Creatinine 0.92 (0.6-1.2) mg/dl Est Cr Clr Drug Dosing Not Reportable Est GFR ( Amer) 67.7 ml/min Est GFR (Non-Af Amer) 58.4 ml/min BUN/Creatinine Ratio 17.4 (10-20) Glucose 178 H (70-99(Fasting)) mg/dl Calcium 8.5 (8.5-10.1) mg/dl Total Bilirubin 1.0 (0.2-1.0) mg/dl AST 176 H (13-39) U/L ALT 225 H (7-52) U/L Alkaline Phosphatase 212 H (34-104) U/L Troponin I High Sens 100.1 H* (0-14) pg/ml Total Protein 6.5 (6.0-8.3) gm/dl Albumin 3.5 (3.4-5.0) gm/dl Globulin 3.0 (2.5-4.0) gm/dl Albumin/Globulin Ratio 1.2 (0.9-2) Lipase 66 (11-82) U/L POC Stool Occult Blood (Negative) SARS-CoV-2, RNA, NAAT (NEGATIVE) Blood Type A Positive Antibody Screen NEGATIVE Crossmatch See Detail 11/10/21 11/10/21 11/10/21 Range/Units 20:45 20:50 20:51 WBC (4.8-10.8) K/uL RBC (4.2-5.4) M/uL Hgb (12.0-16.0) g/dL Hct (37-47) % MCV (80-100) fL MCH (25-34) pg MCHC (32-36) g/dL RDW Std Deviation (36.4-46.3) fL RDW Coeff of Sudha (11.5-14.5) % Plt Count (130-400) K/uL MPV (7.4-10.4) fL Immature Gran % (Auto) % Neut % (Auto) % Lymph % (Auto) % Rice % (Auto) % Eos % (Auto) % Baso % (Auto) % Neut # (Auto) (1.4-6.5) K/uL Lymph # (Auto) (1.2-3.4) K/uL Rice # (Auto) (0.11-0.59) K/uL Eos # (Auto) (0-0.5) K/uL Baso # (Auto) (0-0.2) K/uL Immature Gran # (Auto) (0.00-0.02) K/uL PT 11.5 (9.0-12.0) Seconds INR 1.1 (0.9-1.1) APTT 26.0 (21.0-31.0) Seconds PTT Ratio 0.9 Sodium (136-145) mmol/L Potassium (3.5-5.1) mmol/L Chloride (98-107) mmol/L Carbon Dioxide (21-32) mmol/L Anion Gap (3-11) BUN (6-23) mg/dl Creatinine (0.6-1.2) mg/dl Est Cr Clr Drug Dosing Est GFR ( Amer) ml/min Est GFR (Non-Af Amer) ml/min BUN/Creatinine Ratio (10-20) Glucose (70-99(Fasting)) mg/dl Calcium (8.5-10.1) mg/dl Total Bilirubin (0.2-1.0) mg/dl AST (13-39) U/L ALT (7-52) U/L Alkaline Phosphatase (34-104) U/L Troponin I High Sens (0-14) pg/ml Total Protein (6.0-8.3) gm/dl Albumin (3.4-5.0) gm/dl Globulin (2.5-4.0) gm/dl Albumin/Globulin Ratio (0.9-2) Lipase (11-82) U/L POC Stool Occult Blood Positive A (Negative) SARS-CoV-2, RNA, NAAT NEGATIVE (NEGATIVE) Blood Type Antibody Screen Crossmatch 11/10/21 11/10/21 Range/Units 23:21 23:21 WBC (4.8-10.8) K/uL RBC (4.2-5.4) M/uL Hgb 11.5 L (12.0-16.0) g/dL Hct 33.1 L (37-47) % MCV (80-100) fL MCH (25-34) pg MCHC (32-36) g/dL RDW Std Deviation (36.4-46.3) fL RDW Coeff of Usdha (11.5-14.5) % Plt Count (130-400) K/uL MPV (7.4-10.4) fL Immature Gran % (Auto) % Neut % (Auto) % Lymph % (Auto) % Rice % (Auto) % Eos % (Auto) % Baso % (Auto) % Neut # (Auto) (1.4-6.5) K/uL Lymph # (Auto) (1.2-3.4) K/uL Rice # (Auto) (0.11-0.59) K/uL Eos # (Auto) (0-0.5) K/uL Baso # (Auto) (0-0.2) K/uL Immature Gran # (Auto) (0.00-0.02) K/uL PT (9.0-12.0) Seconds INR (0.9-1.1) APTT (21.0-31.0) Seconds PTT Ratio Sodium (136-145) mmol/L Potassium (3.5-5.1) mmol/L Chloride (98-107) mmol/L Carbon Dioxide (21-32) mmol/L Anion Gap (3-11) BUN (6-23) mg/dl Creatinine (0.6-1.2) mg/dl Est Cr Clr Drug Dosing Est GFR ( Amer) ml/min Est GFR (Non-Af Amer) ml/min BUN/Creatinine Ratio (10-20) Glucose (70-99(Fasting)) mg/dl Calcium (8.5-10.1) mg/dl Total Bilirubin (0.2-1.0) mg/dl AST (13-39) U/L ALT (7-52) U/L Alkaline Phosphatase (34-104) U/L Troponin I High Sens 95.0 H* (0-14) pg/ml Total Protein (6.0-8.3) gm/dl Albumin (3.4-5.0) gm/dl Globulin (2.5-4.0) gm/dl Albumin/Globulin Ratio (0.9-2) Lipase (11-82) U/L POC Stool Occult Blood (Negative) SARS-CoV-2, RNA, NAAT (NEGATIVE) Blood Type Antibody Screen Crossmatch Administered Medications Docusate Sodium (Docusate Sodium 100 Mg Cap) 100 mg PO QAM INES Stop: 12/15/21 08:59 Last Admin: 11/15/21 11:09 Dose: 100 mg Documented by: [id number] Dorzolamide/Timolol (Dorzolamide/Timolol 22.3/6.8mg/Ml 10 Ml Btl) 1 drops OPB BID INES Stop: 12/11/21 08:59 Last Admin: 11/15/21 08:16 Dose: 1 drops Documented by: [id number] Admin: 11/14/21 20:07 Dose: 1 drops Documented by: [id number] Admin: 11/14/21 08:59 Dose: 1 drops Documented by: [id number] Admin: 11/13/21 22:43 Dose: 1 drops Documented by: [id number] Admin: 11/13/21 08:50 Dose: 1 drops Documented by: [id number] Admin: 11/12/21 20:45 Dose: 1 drops Documented by: [id number] Admin: 11/12/21 09:10 Dose: 1 drops Documented by: [id number] Admin: 11/11/21 20:06 Dose: 1 drops Documented by: [id number] Admin: 11/11/21 08:45 Dose: 1 drops Documented by: [id number] Duloxetine HCl (Duloxetine Hcl 60 Mg Cap) 120 mg PO QAM INES Stop: 12/13/21 08:59 Last Admin: 11/15/21 08:17 Dose: 120 mg Documented by: [id number] Admin: 11/14/21 08:58 Dose: 120 mg Documented by: [id number] Admin: 11/13/21 08:50 Dose: 120 mg Documented by: [id number] Fluticasone/Vilanterol (Fluticasone/Vilanterol 200/25mcg 14 Puffs/Inhaler) 1 puffs INH DAILY INES Stop: 12/11/21 08:59 Last Admin: 11/15/21 08:18 Dose: 1 puffs Documented by: [id number] Admin: 11/14/21 08:57 Dose: 1 puffs Documented by: [id number] Admin: 11/13/21 08:50 Dose: 1 puffs Documented by: [id number] Admin: 11/12/21 09:11 Dose: 1 puffs Documented by: [id number] Admin: 11/11/21 08:45 Dose: 1 puffs Documented by: [id number] Furosemide (Furosemide 20 Mg Tab) 20 mg PO QAM INES Stop: 12/11/21 08:59 Last Admin: 11/15/21 08:18 Dose: 20 mg Documented by: [id number] Admin: 11/14/21 10:29 Dose: Not Given Documented by: [id number] Admin: 11/13/21 08:51 Dose: 20 mg Documented by: [id number] Admin: 11/12/21 09:11 Dose: 20 mg Documented by: [id number] Admin: 11/11/21 08:45 Dose: Not Given Documented by: [id number] Gabapentin (Gabapentin 300 Mg Cap) 300 mg PO HS INES Stop: 12/13/21 20:59 Last Admin: 11/14/21 20:04 Dose: 300 mg Documented by: [id number] Admin: 11/13/21 19:44 Dose: 300 mg Documented by: [id number] Lorazepam 1 mg/ Syringe 1 mls @ 2 mls/min IV Q4H PRN PRN Reason: Anxiety Stop: 12/11/21 06:33 Last Admin: 11/12/21 06:13 Dose: 2 mls/min Documented by: [id number] Admin: 11/12/21 00:14 Dose: 2 mls/min Documented by: [id number] Admin: 11/11/21 20:05 Dose: 2 mls/min Documented by: [id number] Admin: 11/11/21 14:27 Dose: 2 mls/min Documented by: [id number] Admin: 11/11/21 07:12 Dose: 2 mls/min Documented by: [id number] Piperacillin Sod/Tazobactam (Sod 3.375 gm/ Dextrose) 115 mls @ 28.75 mls/hr IV Q8H INES; Protocol Stop: 11/16/21 17:59 Last Infusion: 11/15/21 09:47 Dose: 0 mls/hr Documented by: [id number] Admin: 11/15/21 05:46 Dose: 28.8 mls/hr Documented by: [id number] Infusion: 11/15/21 01:57 Dose: 0 mls/hr Documented by: [id number] Admin: 11/14/21 22:30 Dose: 28.8 mls/hr Documented by: [id number] Infusion: 11/14/21 19:24 Dose: 0 mls/hr Documented by: [id number] Admin: 11/14/21 15:23 Dose: 28.8 mls/hr Documented by: [id number] Infusion: 11/14/21 10:17 Dose: 0 mls/hr Documented by: [id number] Admin: 11/14/21 06:07 Dose: 28.8 mls/hr Documented by: [id number] Infusion: 11/14/21 04:17 Dose: 0 mls/hr Documented by: [id number] Admin: 11/14/21 00:14 Dose: 28.8 mls/hr Documented by: [id number] Infusion: 11/13/21 20:33 Dose: 0 mls/hr Documented by: [id number] Admin: 11/13/21 15:38 Dose: 28.8 mls/hr Documented by: [id number] Infusion: 11/13/21 10:13 Dose: 0 mls/hr Documented by: [id number] Admin: 11/13/21 06:05 Dose: 28.8 mls/hr Documented by: [id number] Infusion: 11/13/21 03:54 Dose: 0 mls/hr Documented by: [id number] Admin: 11/12/21 23:33 Dose: 28.8 mls/hr Documented by: [id number] Infusion: 11/12/21 20:46 Dose: 0 mls/hr Documented by: [id number] Admin: 11/12/21 16:32 Dose: 28.8 mls/hr Documented by: [id number] Infusion: 11/12/21 10:15 Dose: 0 mls/hr Documented by: [id number] Admin: 11/12/21 06:15 Dose: 28.8 mls/hr Documented by: [id number] Infusion: 11/12/21 03:53 Dose: 0 mls/hr Documented by: [id number] Admin: 11/11/21 23:50 Dose: 28.8 mls/hr Documented by: [id number] Insulin Aspart (Insulin Aspart Per Unit) 0 units SC ACHS [facility] Stop: 12/12/21 07:29 Last Admin: 11/15/21 11:30 Dose: Not Given Documented by: [id number] Admin: 11/15/21 07:53 Dose: Not Given Documented by: [id number] Admin: 11/14/21 20:19 Dose: Not Given Documented by: [id number] Admin: 11/14/21 17:29 Dose: 2 units Documented by: [id number] Cosigned by: [id number] Admin: 11/14/21 12:51 Dose: 4 units Documented by: [id number] Cosigned by: [id number] Admin: 11/14/21 09:04 Dose: 2 units Documented by: [id number] Cosigned by: [id number] Admin: 11/13/21 20:32 Dose: Not Given Documented by: [id number] Admin: 11/13/21 17:14 Dose: 2 units Documented by: [id number] Cosigned by: [id number] Admin: 11/13/21 12:38 Dose: 2 units Documented by: [id number] Cosigned by: [id number] Admin: 11/13/21 08:59 Dose: 1 units Documented by: [id number] Cosigned by: [id number] Admin: 11/12/21 20:45 Dose: Not Given Documented by: [id number] Admin: 11/12/21 19:03 Dose: Not Given Documented by: [id number] Admin: 11/12/21 12:41 Dose: 2 units Documented by: [id number] Cosigned by: [id number] Levothyroxine Sodium (Levothyroxine Sodium 75 Mcg Tablet) 75 mcg PO DAILYBB [facility] Stop: 12/15/21 08:59 Last Admin: 11/15/21 11:08 Dose: 75 mcg Documented by: [id number] Magnesium Oxide (Magnesium Oxide 400 Mg Tab) 400 mg PO QAM [facility] Stop: 12/15/21 08:59 Last Admin: 11/15/21 11:08 Dose: 400 mg Documented by: [id number] Melatonin (Melatonin 3 Mg Tab) 3 mg PO HS PRN PRN Reason: Sleep Stop: 12/13/21 00:30 Last Admin: 11/14/21 21:37 Dose: 3 mg Documented by: [id number] Admin: 11/13/21 00:46 Dose: 3 mg Documented by: [id number] Morphine Sulfate (Morphine Sulfate 2 Mg/Ml Carp) 1 mg IV Q6H PRN PRN Reason: Pain Stop: 11/25/21 13:51 Last Admin: 11/14/21 21:37 Dose: 1 mg Documented by: [id number] Admin: 11/14/21 08:56 Dose: 1 mg Documented by: [id number] Admin: 11/13/21 19:15 Dose: 1 mg Documented by: [id number] Admin: 11/13/21 13:09 Dose: 1 mg Documented by: [id number] Admin: 11/13/21 05:49 Dose: 1 mg Documented by: [id number] Admin: 11/12/21 23:32 Dose: 1 mg Documented by: [id number] Admin: 11/12/21 17:44 Dose: 1 mg Documented by: [id number] Admin: 11/12/21 09:54 Dose: 1 mg Documented by: [id number] Multivitamins (Multivitamin Tab) 1 tab PO QAM INES Stop: 12/15/21 08:59 Last Admin: 11/15/21 11:08 Dose: 1 tab Documented by: [id number] Pantoprazole Sodium (Pantoprazole 40 Mg Tab) 40 mg PO DAILY [facility] Stop: 12/13/21 10:59 Last Admin: 11/15/21 08:17 Dose: 40 mg Documented by: [id number] Admin: 11/14/21 08:59 Dose: 40 mg Documented by: [id number] Admin: 11/13/21 10:07 Dose: 40 mg Documented by: [id number] Prednisone (Prednisone 2.5 Mg Tab) 2.5 mg PO DAILY INES Stop: 12/15/21 08:59 Last Admin: 11/15/21 11:09 Dose: 2.5 mg Documented by: [id number] Rivaroxaban (Rivaroxaban 15 Mg Tab) 15 mg PO BID [facility] Stop: 12/03/21 09:01 Last Admin: 11/15/21 08:17 Dose: 15 mg Documented by: [id number] Admin: 11/14/21 20:04 Dose: 15 mg Documented by: [id number] Admin: 11/14/21 08:58 Dose: 15 mg Documented by: [id number] Admin: 11/13/21 19:44 Dose: 15 mg Documented by: [id number] Admin: 11/13/21 08:51 Dose: 15 mg Documented by: [id number] Admin: 11/12/21 20:21 Dose: 15 mg Documented by: [id number] Spironolactone (Spironolactone 12.5 Mg Tab) 12.5 mg PO QAM INES Stop: 12/15/21 08:59 Last Admin: 11/15/21 11:09 Dose: 12.5 mg Documented by: [id number] Topiramate (Topiramate 100 Mg Tab) 100 mg PO BID INES Stop: 12/15/21 08:59 Last Admin: 11/15/21 11:07 Dose: 100 mg Documented by: [id number] Tramadol HCl (Tramadol Hcl 50 Mg Tablet) 50 mg PO AMHS INES Stop: 12/15/21 08:59 Last Admin: 11/15/21 10:20 Dose: 50 mg Documented by: [id number] Trazodone HCl (Trazodone Hcl 50 Mg Tab) 50 mg PO HS INES Stop: 12/13/21 20:59 Last Admin: 11/14/21 20:05 Dose: 50 mg Documented by: [id number] Admin: 11/13/21 19:44 Dose: 50 mg Documented by: [id number] Vitamin D (Cholecalciferol 1,000 Units 25 Mcg Tab) 1,000 units PO DAILY INES Stop: 12/15/21 08:59 Last Admin: 11/15/21 11:08 Dose: 1,000 units Documented by: [id number] Zinc Sulfate (Zinc Sulfate 220 Mg Capsule) 220 mg PO DAILY INES Stop: 12/15/21 08:59 Last Admin: 11/15/21 11:09 Dose: 220 mg Documented by: [id number] Discontinued Medications Enoxaparin Sodium (Enoxaparin 80 Mg/0.8 Ml Syr) 80 mg SQ Q24H INES Stop: 12/11/21 17:59 Last Admin: 11/11/21 17:54 Dose: 80 mg Documented by: [id number] Pantoprazole Sodium (Protonix Bolus/Drip) 0 mls @ 1 mls/hr IV ONE STA Stop: 11/10/21 20:24 Last Admin: 11/10/21 21:07 Dose: Not Given Documented by: [id number] Pantoprazole Sodium 40 mg/ (Dextrose) 100 mls @ 20 mls/hr IV Q5H INES Stop: 12/10/21 20:44 Last Infusion: 11/13/21 10:09 Dose: 0 mg/hr, 0 mls/hr Documented by: [id number] Admin: 11/13/21 10:08 Dose: Not Given Documented by: [id number] Admin: 11/13/21 06:04 Dose: 8 mg/hr, 20 mls/hr Documented by: [id number] Infusion: 11/13/21 06:04 Dose: 8 mg/hr, 20 mls/hr Documented by: [id number] Admin: 11/13/21 01:45 Dose: 8 mg/hr, 20 mls/hr Documented by: [id number] Infusion: 11/13/21 01:45 Dose: 8 mg/hr, 20 mls/hr Documented by: [id number] Admin: 11/12/21 21:10 Dose: 8 mg/hr, 20 mls/hr Documented by: [id number] Infusion: 11/12/21 21:10 Dose: 8 mg/hr, 20 mls/hr Documented by: [id number] Admin: 11/12/21 16:30 Dose: 8 mg/hr, 20 mls/hr Documented by: [id number] Infusion: 11/12/21 16:30 Dose: 8 mg/hr, 20 mls/hr Documented by: [id number] Admin: 11/12/21 11:34 Dose: 8 mg/hr, 20 mls/hr Documented by: [id number] Infusion: 11/12/21 11:15 Dose: 8 mg/hr, 20 mls/hr Documented by: [id number] Admin: 11/12/21 06:15 Dose: 8 mg/hr, 20 mls/hr Documented by: [id number] Infusion: 11/12/21 06:10 Dose: 8 mg/hr, 20 mls/hr Documented by: [id number] Admin: 11/12/21 01:10 Dose: 8 mg/hr, 20 mls/hr Documented by: [id number] Infusion: 11/12/21 01:10 Dose: 8 mg/hr, 20 mls/hr Documented by: [id number] Admin: 11/11/21 20:10 Dose: 8 mg/hr, 20 mls/hr Documented by: [id number] Infusion: 11/11/21 20:07 Dose: 8 mg/hr, 20 mls/hr Documented by: [id number] Infusion: 11/11/21 17:40 Dose: 8 mg/hr, 20 mls/hr Documented by: [id number] Infusion: 11/11/21 15:41 Dose: 0 mg/hr, 0 mls/hr Documented by: [id number] Admin: 11/11/21 13:08 Dose: 8 mg/hr, 20 mls/hr Documented by: [id number] Infusion: 11/11/21 12:12 Dose: 8 mg/hr, 20 mls/hr Documented by: [id number] Admin: 11/11/21 07:12 Dose: 8 mg/hr, 20 mls/hr Documented by: [id number] Infusion: 11/11/21 07:12 Dose: 8 mg/hr, 20 mls/hr Documented by: [id number] Admin: 11/11/21 02:18 Dose: 8 mg/hr, 20 mls/hr Documented by: [id number] Infusion: 11/11/21 02:18 Dose: 8 mg/hr, 20 mls/hr Documented by: [id number] Admin: 11/10/21 21:20 Dose: 8 mg/hr, 20 mls/hr Documented by: [id number] Pantoprazole Sodium 80 mg/ (Dextrose) 120 mls @ 400 mls/hr IV NOW ONE Stop: 11/10/21 20:40 Last Infusion: 11/10/21 21:25 Dose: 0 mls/hr Documented by: [id number] Admin: 11/10/21 21:01 Dose: 400 mls/hr Documented by: [id number] Sodium Chloride (Nss 1000ml) 1,000 mls @ 100 mls/hr IV .Q10H INES Stop: 11/11/21 18:44 Last Infusion: 11/11/21 22:08 Dose: 0 mls/hr Documented by: [id number] Infusion: 11/11/21 17:40 Dose: 100 mls/hr Documented by: [id number] Infusion: 11/11/21 15:41 Dose: 0 mls/hr Documented by: [id number] Admin: 11/11/21 10:03 Dose: 100 mls/hr Documented by: [id number] Infusion: 11/11/21 09:19 Dose: 100 mls/hr Documented by: [id number] Admin: 11/10/21 23:19 Dose: 100 mls/hr Documented by: 16712 Lorazepam 1 mg/ Syringe 1 mls @ 2 mls/min IV NOW STA Stop: 11/11/21 05:09 Last Admin: 11/11/21 05:30 Dose: 2 mls/min Documented by: [id number] Piperacillin Sod/Tazobactam (Sod 3.375 gm/ Dextrose) 115 mls @ 230 mls/hr IV NOW ONE; Protocol Stop: 11/11/21 17:44 Last Infusion: 11/11/21 18:45 Dose: 0 mls/hr Documented by: [id number] Admin: 11/11/21 17:54 Dose: 230 mls/hr Documented by: [id number] Ciprofloxacin (Cipro / D5w) 400 mg in 200 mls @ 100 mls/hr IV Q12H [facility]; Protocol Stop: 11/14/21 01:03 Last Infusion: 11/13/21 06:13 Dose: 0 mls/hr Documented by: [id number] Admin: 11/13/21 03:54 Dose: 100 mls/hr Documented by: [id number] Infusion: 11/12/21 16:29 Dose: 0 mls/hr Documented by: [id number] Admin: 11/12/21 14:19 Dose: 100 mls/hr Documented by: [id number] Infusion: 11/12/21 04:21 Dose: 0 mls/hr Documented by: [id number] Admin: 11/12/21 02:14 Dose: 100 mls/hr Documented by: [id number] Insulin Aspart (Insulin Aspart Per Unit) 0 units SC ACHS [facility] Stop: 12/11/21 07:29 Last Admin: 11/11/21 20:43 Dose: Not Given Documented by: [id number] Admin: 11/11/21 17:13 Dose: Not Given Documented by: [id number] Admin: 11/11/21 12:01 Dose: Not Given Documented by: [id number] Admin: 11/11/21 08:52 Dose: Not Given Documented by: [id number] Insulin Aspart (Insulin Aspart Per Unit) 0 units SC Q6 INES Stop: 12/12/21 07:29 Last Admin: 11/12/21 19:06 Dose: Not Given Documented by: [id number] Admin: 11/12/21 07:47 Dose: Not Given Documented by: [id number] Ioversol (Optiray 320 100ml) 95 ml IV ONCE ONE Stop: 11/10/21 23:47 Last Admin: 11/10/21 23:46 Dose: 95 ml Documented by: [id number] Morphine Sulfate (Morphine Sulfate 2 Mg/Ml Carp) 1 mg IV NOW STA Stop: 11/13/21 00:32 Last Admin: 11/13/21 00:46 Dose: 1 mg Documented by: [id number] Potassium Chloride (Potassium Chloride Crtab 20 Meq Tabcr) 40 meq PO NOW STA Stop: 11/13/21 10:38 Last Admin: 11/13/21 11:36 Dose: Not Given Documented by: [id number] Potassium Chloride (Potassium Chloride 20 Meq/15 Ml Udc) 40 meq PO NOW STA Stop: 11/13/21 11:38 Last Admin: 11/13/21 12:38 Dose: 40 meq Documented by: [id number] Potassium Chloride (Potassium Chloride Crtab 20 Meq Tabcr) 40 meq PO NOW STA Stop: 11/14/21 07:18 Last Admin: 11/14/21 08:57 Dose: 40 meq Documented by: [id number] Imaging Data Radiologist's Impression: Chest X-Ray 11/10/21 20:08 XR chest 1V portable CLINICAL HISTORY: GIB post ERCP. Evaluate cardiopulmonary status COMPARISON STUDY: 10/28/2021 TECHNIQUE: 1 view of the chest FINDINGS: Single frontal view of the chest demonstrates the cardiomediastinal silhouette to be within normal limits. There is a decreased inspiratory effort with elevation of the hemidiaphragms and crowding of the bronchovascular markings at the lung bases and centrally. The lungs are clear of alveolar opacities. There is no evidence for pleural effusion. There is no evidence for vascular congestion. There is no acute osseous pathology. IMPRESSION: 1. There is a decreased inspiratory effort with otherwise no acute chest disease. ACT 112: Negative or not required by law. Electronically signed by: Vishal Rob M.D. 11/11/2021 8:15 AM KUB X-Ray 11/10/21 20:08 KUB HISTORY: Acute GI bleed GIB post ERCP COMPARISON: CT abdomen and pelvis of same day FINDINGS: Surgical chai of the right anterior mid abdominal wall. Nonobstructive bowel gas pattern. No renal calculi. No ureteral calculi. No pneumoperitoneum or pneumatosis. Dextroscoliosis of the lumbar spine with multilevel degenerative changes. Additional degenerative changes of the pelvis and hips. No fracture. IMPRESSION: Nonobstructive bowel gas pattern. ACT 112: Negative or not required by law. The above report was generated using voice recognition software. It may contain grammatical, syntax or spelling errors. Electronically signed by: Abilio Rick M.D. 11/11/2021 6:47 AM Abdomen/Pelvis CT 11/10/21 23:[address] WITH IV CONTRAST CT DOSE: 251.89 mGy.cm HISTORY: Acute nausea with elevated LFTs and reported upper GI bleed elevated LFT, s/p ERCP, now UGIB TECHNIQUE: Multiaxial CT images of the abdomen and pelvis were performed following the IV administration of 95 cc of Optiray, A dose lowering technique was utilized adhering to the principles of ALARA. COMPARISON STUDY: CT abdomen and pelvis 06/10/2018 FINDINGS: The heart is mildly enlarged. The segmental and subsegmental left lower lobe pulmonary emboli are partially imaged. Mild subsegmental left greater than right bibasilar atelectasis. No pneumatosis or pneumoperitoneum. The spleen, moderately atrophic pancreas and adrenal glands are unremarkable. Cholecystectomy with unchanged dilation of the common bile duct measuring up to 10 mm. Unremarkable liver. Patent portal vein. 1.2 cm cyst of the superior pole right kidney. No hydronephrosis or enhancing renal mass lesions identified. Unremarkable urinary bladder. The uterus appears to be surgically absent. Atherosclerosis of the aorta. There is at least mild stenosis at the origin of the bilateral renal arteries. 1.4 x 1.3 cm nodule within the abdominal right lower quadrant image 232 of series 3 is suggestive of an enlarged iliac chain lymph node, new from the prior study. A 9 mm right iliac chain lymph node is also present on image 278. There is no bowel obstruction or bowel wall thickening. Colonic diverticulosis. No ascites or mesenteric inflammation. Mild fecal retention. The appendix is not diagnostically visualized. Surgical clips of the right anterior abdominal wall. No acute fracture. Degenerative changes of the spine, pelvis and hips. Grade 1 anterolisthesis L3 on L4 and L4 on L5 is likely secondary to long-standing facet disease. IMPRESSION: 1. Subsegmental and subsegmental pulmonary emboli of the left lower lobe. This finding was called/faxed to the floor at time of dictation. 2. No bowel obstruction or bowel wall thickening. 3. Colonic diverticulosis. 4. Unchanged mild intrahepatic and extrahepatic biliary ductal dilation status post cholecystectomy. This is likely on a postoperative basis. 5. Nonspecific mildly enlarged right iliac chain lymph node is new from the shanita or study. Attention at follow-up recommended. 6. Additional findings as above. ACT 112: Negative or not required by law. The above report was generated using voice recognition software. It may contain grammatical, syntax or spelling errors. Electronically signed by: Abilio Rick M.D. 11/11/2021 8:30 AM Blood Pressure Blood Pressure Findings: Low blood pressure Blood Pressure Disposition: further management by hospitalist Discharge Plan Visit Data Chief Complaint: GI Bleed Stated Complaint: HAD SRGERY ON THURSDAY, HAS BLOOD IN STOOL ED Provider: Camelia Hines Discharge Problem: UGIB (upper gastrointestinal bleed), S/P ERCP Patient Disposition: Admitted As Inpatient Discharge Instructions Interventions: ED Discharge Assessment Last Done: 11/11/21 01:01
[2021-11-10 23:39] LABS: Hematocrit (blood only) 33.1 % (37-47); Hemoglobin 11.5 g/dL (12.0-16.0)
[2021-11-10] MEDS ORDERED: OPTIRAY 320 100ml IV ONE (23:46)
[2021-11-11] MEDS ORDERED: GLUCAGON FOR INJ 1 MG VIAL SQ PRN (01:33)
[2021-11-11] MEDS ORDERED: ALBUTEROL HFA 8 GM INHALER INH PRN (01:33)
[2021-11-11] MEDS ORDERED: GLUCOSE 40% GEL 15 GM TUBE PO PRN (01:33)
[2021-11-11] MEDS ORDERED: DEXTROSE 50% 50 ML SYRINGE IV PRN (01:33)
[2021-11-11] MEDS ORDERED: CARBOHYDRATES FOR HYPOGLYCEMIA PO PRN (01:33)
[2021-11-11] MEDS ORDERED: GLUCOSE 10 TAB/TUBE PO PRN (01:33)
[2021-11-11] MEDS: PANTOprazole 40 MG in DEXTROSE 5% 100 ML IV SCH ×4 (02:18→20:10)
[2021-11-11 03:27] LABS: Hematocrit (blood only) 34.8 % (37-47); Hemoglobin 11.9 g/dL (12.0-16.0)
[2021-11-11] MEDS ORDERED: LORazepam 1 MG in SYRINGE 0.5 ML IV STA (05:08)
--- NOTE | 2021-11-11 06:48 | XRay Report ---
KUB HISTORY: Acute GI bleed GIB post ERCP COMPARISON: CT abdomen and pelvis of same day FINDINGS: Surgical chai of the right anterior mid abdominal wall. Nonobstructive bowel gas pattern . No renal calculi. No ureteral calculi. No pneumoperitoneum or pneumatosis. Dextroscoliosis of the lumbar spine with multilevel degenerative changes. Additional degenerative changes of the pelvis and hips. No fracture. IMPRESSION: Nonobstructive bowel gas pattern. ACT 112: Negative or not required by law. The above report was generated using voice recognition software. It may contain grammatical, syntax o r spelling errors. Electronically signed by: Abilio Rick M.D. 11/11/2021 6:47 AM
[2021-11-11] MEDS: LORazepam 1 MG in SYRINGE 0.5 ML IV PRN ×3 (07:12→20:05)
[2021-11-11 08:02] LABS: Estimated Average Glucose 143 mg/dl; Hemoglobin A1C 6.6 % (4.5-5.6)
--- NOTE | 2021-11-11 08:16 | XRay Report ---
XR chest 1V portable CLINICAL HISTORY: GIB post ERCP. Evaluate cardiopulmonary status COMPARISON STUDY: 10/28/2021 TECHNIQUE: 1 view of the chest FINDINGS: Single frontal view of the chest demonstrates the cardiomediastinal silhouette to be within normal li mits. There is a decreased inspiratory effort with elevation of the hemidiaphragms and crowding of th e bronchovascular markings at the lung bases and centrally. The lungs are clear of alveolar opacities . There is no evidence for pleural effusion. There is no evidence for vascular congestion. There is n o acute osseous pathology. IMPRESSION: 1. There is a decreased inspiratory effort with otherwise no acute chest disease. ACT 112: Negative or not required by law. Electronically signed by: Vishal Rob M.D. 11/11/2021 8:15 AM
--- NOTE | 2021-11-11 08:32 | CT Scan Report ---
ABDOMEN AND PELVIS CT WITH IV CONTRAST CT DOSE: 251.89 mGy.cm HISTORY: Acute nausea with elevated LFTs and reported upper GI bleed elevated LFT, s/p ERCP, now UGI B TECHNIQUE: Multiaxial CT images of the abdomen and pelvis were performed following the IV administrat ion of 95 cc of Optiray, A dose lowering technique was utilized adhering to the principles of ALARA. COMPARISON STUDY: CT abdomen and pelvis 06/10/2018 FINDINGS: The heart is mildly enlarged. The segmental and subsegmental left lower lobe pulmonary embo li are partially imaged. Mild subsegmental left greater than right bibasilar atelectasis. No pneumato sis or pneumoperitoneum. The spleen, moderately atrophic pancreas and adrenal glands are unremarkable . Cholecystectomy with unchanged dilation of the common bile duct measuring up to 10 mm. Unremarkable liver. Patent portal vein. 1.2 cm cyst of the superior pole right kidney. No hydronephrosis or enhancing renal mass lesions iden tified. Unremarkable urinary bladder. The uterus appears to be surgically absent. Atherosclerosis of the aorta. There is at least mild stenosis at the origin of the bilateral renal arteries. 1.4 x 1.3 c m nodule within the abdominal right lower quadrant image 232 of series 3 is suggestive of an enlarged iliac chain lymph node, new from the prior study. A 9 mm right iliac chain lymph node is also presen t on image 278. There is no bowel obstruction or bowel wall thickening. Colonic diverticulosis. No ascites or mesente zafar inflammation. Mild fecal retention. The appendix is not diagnostically visualized. Surgical clips of the right anterior abdominal wall. No acute fracture. Degenerative changes of the spine, pelvis a nd hips. Grade 1 anterolisthesis L3 on L4 and L4 on L5 is likely secondary to long-standing facet dis ease. IMPRESSION: 1. Subsegmental and subsegmental pulmonary emboli of the left lower lobe. This finding was called/fax ed to the floor at time of dictation. 2. No bowel obstruction or bowel wall thickening. 3. Colonic diverticulosis. 4. Unchanged mild intrahepatic and extrahepatic biliary ductal dilation status post cholecystectomy. This is likely on a postoperative basis. 5. Nonspecific mildly enlarged right iliac chain lymph node is new from the prior study. Attention at follow-up recommended. 6. Additional findings as above. ACT 112: Negative or not required by law. The above report was generated using voice recognition software. It may contain grammatical, syntax o r spelling errors. Electronically signed by: Abilio Rick M.D. 11/11/2021 8:30 AM
[2021-11-11] MEDS: DORZOLAMIDE/TIMOLOL 22.3/6.8MG/ML 10 ML BTL OPB SCH ×2 (08:45→20:06)
[2021-11-11] MEDS: FLUTICASONE/VILANTEROL 200/25MCG 14 PUFFS/INHALER INH SCH (08:45)
[2021-11-11] MEDS: FUROSEMIDE 20 MG TAB PO SCH (08:45)
[2021-11-11] MEDS: INSULIN ASPART PER UNIT SC SCH ×4 (08:52→20:43)
[2021-11-11] MEDS ORDERED: BUDESONIDE/FORMOTEROL FUMARATE 160/4.5 60 PUFFS/INHALER INH SCH (09:00)
--- NOTE | 2021-11-11 10:01 | Gastroenterology Progress Note ---
Date of Service November 11, 2021 Assessment & Plan (1) GI bleed: Plan: Likely from sphincterotomy. (2) Bile duct obstruction: Plan: Likely from blood clots from post ERCP bleeding. Plan: 1 keep n.p.o. today 2 Plan ERCP this afternoon. 3. Appreciate holding Plavix and any new anticoagulation for PE until after ERCP. 4. Continue PPI drip. 5. Further recommendations to follow ERCP. Admission and Anticipated Discharge Date Admission Date: November 11, 2021 Supervising Physician Co-Signing Physician Notes Attg add I interviewed and examined pt, reviewed chart and labs. 81 yo female s /p recent ERCP for CBD stones, immediate sphincterotomy bleed rx'd epi now with hematochezia and abnormal LFTs, also abd CT showing new PE. Plan ERCP with stent placement, anticipate beginning anti coag today post ERCP Subjective 81-year-old female, history of asthma, hypothyroidism, valvular heart disease. Maintained on Plavix, has held for approximately [address] yesterday with PE. Anticoagulation being held pending repeat ERCP Return to the hospital for rectal bleeding. 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 Has diffuse abdominal pain but also says she hurts all over from fibromyalgia. Is n.p.o. for ERCP today Review of Systems Review of Systems: ROS: Gen: + weakness, No fevers, No weight loss Eyes: No eye redness, or pain, no recent vision changes Resp: Denies an CP or SOB, no cough Cardio: No palpitations/irregular beats, no chest pain GI: No abdominal pain, no nausea/vomiting : Denies pain on urination Skin: + ecchymosis near eyes and small areas elsewhere consistent with Plavix use. No jaundice, itching or new rashes Physical Exam Constitutional: well developed, + ill appearing, + thin and cooperative Eyes: PERRL, conjunctivae normal, anicteric sclerae Respiratory: normal respiratory effort; no respiratory distress and no cough Clear but dimiinshed at bases Cardiovascular: RRR, no murmur, no edema Gastrointestinal (Abdomen): Inspection/Auscultation: abdomen normal to inspection and normal bowel sounds; abdomen not distended and no abdominal edema Percussion/Palpation: + abdomen tender (Mild diffuse adbdominal msk tenderness. No signs of acute abdomen.) and abdomen soft; no guarding and abdomen not rigid Skin: normal turgor and + pallor ecchymosis near eyes, on arms, consisten with Plavix use. Neurologic: PERRL, EOMI, accommodation nl, no face palsy, no dysarthria awake; not confused Psychiatric: A+Ox3, euthymic affect Orientation: alert, oriented x 3 and cooperative Results & Data ([facility]) Vital Signs (Past 12 Hours) Vital Signs Temp Pulse Pulse Resp BP BP Pulse Ox 11/11/21 08:00 95 H 11/11/21 07:26 36.6 C 97 H 18 99/65 L 92 11/11/21 03:57 36.7 C 85 20 106/64 95 11/11/21 01:33 84 11/11/21 01:20 36.4 C L 87 18 125/80 91 11/11/21 01:01 88 17 109/64 90 11/11/21 00:30 87 17 114/70 92 11/10/21 23:00 82 16 93/62 L 90 11/10/21 22:30 86 14 98/51 L 92 11/10/21 22:04 92 H 15 99/59 L 92 11/10/21 22:02 93 H 14 82/42 L 91 Laboratory Results WBC 5.8, Hb 11.9, HCT 34.8, PLT S274, INR 1.1, NA 133 K4.0, CL 102, CO2 22, BUN 16, creatinine 0.92, glucose 128 T bili 1, AST 176, ALT 225, Alk Phos 212 Diagnostic Findings CTAP w IV 11/10/21: 1. Subsegmental and subsegmental pulmonary emboli of the left lower lobe. This finding was called/faxed to the floor at time of dictation. 2. No bowel obstruction or bowel wall thickening. 3. Colonic diverticulosis. 4. Unchanged mild intrahepatic and extrahepatic biliary ductal dilation status post cholecystectomy. This is likely on a postoperative basis. 5. Nonspecific mildly enlarged right iliac chain lymph node is new from the prior study. Attention at follow-up recommended.
[2021-11-11] MEDS: SODIUM CHLORIDE 0.9% 1000ML 1,000 ML IV SCH (10:03)
--- NOTE | 2021-11-11 11:21 | Billing Data ---
Date of Service November 10, 2021 Coding Level of Care Code 92429 Initial Inpt Care Lvl 3
--- NOTE | 2021-11-11 11:36 | Communication Note ---
Date of Service: November 11, 2021 Ms. Alvarenga is to go for an ERCP today. She is at moderate risk for cardiac complication surrounding hr ERCP. She did have an elevated troponin which is trending back down, and no overt ischemic changes on her EKG. She has a recent negative stress test 08/2020. Her biggest risk is her pulmonary embolisms, which may be the source of her recent worsening pulmonary hypertension. Given the urgency of her bleeding, which can hopefully be managed so that she can be anticoagulated, she can proceed to her ERCP without further workup.
--- NOTE | 2021-11-11 14:07 | Electrocardiogram Report ---
Test Reason : Blood Pressure : / mmHG Vent. Rate : 105 BPM Atrial Rate : 105 BPM P-R Int : 176 ms QRS Dur : 068 ms QT Int : 370 ms P-R-T Axes : 000 134 -31 degrees QTc Int : 489 ms Sinus tachycardia Low voltage QRS Left posterior fascicular block Cannot rule out Inferior infarct , age undetermined Abnormal ECG When compared with ECG of 24-SEP-2021 06:00, Vent. rate has increased BY 45 BPM Left posterior fascicular block is now Present Nonspecific T wave abnormality now evident in Anterolateral leads Confirmed by Mark Salazar ([id number]) on 11/11/2021 2:07:28 PM Referred By: Dalton Rendon Confirmed By:Mark Salazar
--- NOTE | 2021-11-11 14:17 | Hospitalist Progress Note ---
Date of Service November 11, 2021 Assessment & Plan (1) GI bleed: Plan: 81yo female presents with a one-day history of hematochezia in the setting of undergoing ERCP for choledocholithiasis as well as EGD for polyp removal two days ago. PMH is notable for CAD, asthma, fibromyalgia, GERD, hypothyroidism, and PMR. Hematochezia, melena Symptoms likely secondary to recent EGD and ERCP On admission, BP soft (90-100/45-60) but stable, patient asymptomatic Initial Hgb 12.9, repeat three hours later; repeat scheduled for 03:00 CT a/p with multiple minor findings but no obvious etiology Admit to telemetry GI consulted, appreciate recommendations; patient NPO until GI eval NSS @ 100mL/hr, continue PPI IV Transaminitis, RUQ/LUQ pain On admission, AST 176, ALT 225, 212 Symptoms and labs likely secondary to recent ERCP CT a/p with multiple minor findings but no obvious etiology (2) Pulmonary embolism: Plan: found to have subsegmental PE will obtain 2 D ECHO to rule out ventricular starin Hold off on anticoagulation until after ERCP (3) Elevated troponin: Plan: most likely strain from pulmonary embolism No ekg changes trop has been trending down cardiology on consult (4) Polymyalgia rheumatica: Plan: Polymyalgia rheumatica Patient with chronic history of PMR controlled with prednisone 2.5mg daily Holding prednisone while NPO, will need to be restarted when diet is advanced (5) Fibromyalgia: Plan: Polymyalgia rheumatica Patient with chronic history of PMR controlled with prednisone 2.5mg daily Holding prednisone while NPO, will need to be restarted when diet is advanced (6) Asthma: (7) Chest pain: (8) Abdominal pain: (9) Current chronic use of systemic steroids: (10) GERD (gastroesophageal reflux disease): (11) Hypothyroid: Plan: FEN: NPO, NSS @ 100mL/hr Code status: full code DVT ppx: SCDs Consults: GI PT/OT: ordered Dispo: telemetry Admission and Anticipated Discharge Date Admission Date: November 11, 2021 Subjective patient seen and examined today, feels some pain all over, also chills Review of Systems Review of Systems: All systems reviewed are negative, apart from the ones contained in the history. Physical Exam Physical Exam: The patient is awake, alert and oriented 3, well developed and well nourished, normocephalic and atraumatic, lying in bed and in no acute distress. HEENT--PERRL, EOMI, mucous membranes and oropharynx mildly dry Neck--supple. No JVD. No bruits. Thyroid normal, trachea midline, no adenopathy. Heart--normal S1 and S2. No murmurs, rubs or gallops. Lungs--clear bilaterally, no respiratory distress, no accessory muscle use. Abdomen--normal bowel sounds and soft. Mild epigastric and left sided abdominal pain Extremities--no cyanosis or clubbing. No edema. Dermatologic--normal skin turgor, normal color, no abnormal lymph nodes, no rash. Neurologic--cranial nerves II through XII grossly intact. Rheumatologic--normal range of motion. Psychiatric--normal affect. Results & Data Results & Data ([facility]) Vital Signs (Past 12 Hours) Vital Signs Temp Pulse Pulse Resp BP Pulse Ox 11/11/21 11:24 97.9 F 89 19 102/58 L 93 11/11/21 08:00 95 H 11/11/21 07:26 97.9 F 97 H 18 99/65 L 92 11/11/21 03:57 98.1 F 85 20 106/64 95 PG Care Time/CCT Total # of Minutes Spent Total Time Spent with Patient: Total time spent is greater than 50% in coordination of care (as documented) at patient's floor/unit and/or counseling patient: Coding Level of Care Code 95793 Subseq Hosp Care Lvl 2 Diagnoses GI bleed K92.2 Abdominal pain R10.9 Asthma J45.20 Asthma severity: mild Asthma persistence: intermittent Asthma complication type: uncomplicated Chest pain R07.9 Current chronic use of systemic steroids Z79.52 Elevated troponin R77.8 GERD (gastroesophageal reflux disease) K21.9 Esophagitis presence: esophagitis presence not specified Hypothyroid E03.9 Polymyalgia rheumatica M35.3 Pulmonary embolism I26.99 Fibromyalgia M79.7 Time Spent (min) 35 (1) Asthma Asthma severity: mild Asthma persistence: intermittent Asthma complication t ype: uncomplicated Qualified Code(s): J45.20 - Mild intermittent asthma, uncomplicated (2) GERD (gastroesophageal reflux disease) Esophagitis presence: esophagitis presence not specified Qualified Code(s): K21.9 - Gastro-esophageal reflux disease without esophagitis
--- NOTE | 2021-11-11 15:22 | Anesthesiology Consultation ---
Date of Service November 11, 2021 Assessment & Plan (1) Encounter for pre-operative examination: Chart Review Chart Review: entry level initiated History Surgery Operation Date: 11/11/21 13:05 Proposed Procedures p Endoscopic Retrograde Cholangiopancreatogram - Michaela Lucas DO Height/Weight Height: 5 ft Weight: 53.7 kg Allergies Allergy/AdvReac Type Severity Reaction Status Date / Time aspirin Allergy Intermediate GI UPSET Verified 11/10/21 22:27 codeine Allergy Intermediate GI UPSET Verified 11/10/21 22:27 erythromycin base Allergy Intermediate GI UPSET Verified 11/10/21 22:27 Medications Home Medications Medication Instructions Recorded Confirmed Last Taken cholecalciferol (vitamin D3) 100 4,000 unit PO DAILY 06/10/18 11/10/21 11/07/21 mcg (4,000 unit) capsule (Vitamin D3) multivitamin 1 tab PO QAM 06/10/18 11/10/21 11/07/21 trazodone 100 mg tablet 1 tab PO QPM 06/10/18 11/10/21 11/07/21 tramadol 50 mg tablet 50 mg PO AMPM tab 02/13/19 11/10/21 11/10/21 09:00 latanoprost 0.005 % eye drops 1 drops OP QPM 03/03/19 11/10/21 11/10/21 22:00 alendronate 70 mg tablet (Fosamax) 70 mg PO WK tab 01/17/20 11/10/21 11/06/21 topiramate 50 mg tablet 100 mg PO BID 90 Days #360 tab 10/03/20 11/10/21 11/10/21 09:00 dorzolamide 22.3 mg-timolol 6.8 1 drp OPB BID 10/07/20 11/10/21 11/10/21 22:00 mg/mL eye drops prednisone 2.5 mg tablet 2.5 mg PO DAILY #90 tab 10/23/20 11/10/21 11/10/21 09:00 zinc sulfate 25 mg zinc (110 mg) 25 mg PO DAILY 12/11/20 11/10/21 11/07/21 tablet (Orazinc) duloxetine 60 mg capsule,delayed 120 mg PO QAM cap 01/31/21 11/10/21 11/10/21 09:00 release (Cymbalta) gabapentin 300 mg capsule 300 mg PO HS 90 Days #90 cap 01/31/21 11/10/21 11/07/21 21:00 albuterol sulfate 90 mcg/actuation 2 puff INH Q6H PRN #3 inhaler 03/11/21 11/10/21 11/08/21 07:40 aerosol inhaler budesonide-formoterol HFA 160 2 puff INHALATION BID #3 inhaler 06/25/21 11/10/21 11/08/21 07:40 mcg-4.5 mcg/actuation aerosol inhaler (Symbicort) artificial tears(hypromellose) 0.3 1 drp OPHTHALMIC (EYE) TID g 09/18/21 11/10/21 11/08/21 07:00 % eye gel (Systane Gel) fexofenadine 60 mg tablet 180 mg PO QAM tab 09/18/21 11/10/21 11/07/21 furosemide 20 mg tablet 20 mg PO QAM 09/18/21 11/10/21 11/07/21 peg 400-propylene glycol 0.4 %-0.3 1 drp OPHTHALMIC (EYE) TID 09/18/21 11/10/21 11/08/21 % eye drops (Systane Ultra) spironolactone 25 mg tablet 12.5 mg PO QAM 09/18/21 11/10/21 11/07/21 docusate sodium 100 mg capsule 100 mg PO QAM 09/23/21 11/10/21 11/07/21 09:00 famotidine 20 mg tablet 20 mg PO HS 09/23/21 11/10/21 11/08/21 levothyroxine 75 mcg tablet 75 mcg PO QAM 09/23/21 11/10/21 11/08/21 magnesium 250 mg tablet 250 mg PO QAM 09/23/21 11/10/21 11/07/21 pantoprazole 40 mg tablet,delayed See Rx Instructions .ROUTE 09/27/21 11/10/21 11/10/21 09:00 release .COMPLEX #180 tablet cholecalciferol (vitamin D3) 25 25 mcg PO DAILY 11/10/21 11/10/21 Unknown mcg (1,000 unit) tablet (Vitamin D3) clopidogrel 75 mg tablet 75 mg PO .HOLD 11/10/21 11/10/21 Unknown montelukast 10 mg tablet 10 mg PO HS 11/10/21 11/10/21 Unknown Active Medications Generic Name Dose Route Start Last Admin Trade Name Miriam PRN Reason Stop Dose Admin Dorzolamide/Timolol 1 drops 11/11/21 09:00 11/11/21 08:45 Dorzolamide/Timolol 22.3/6.8mg/Ml 10 Ml Btl OPB 12/11/21 08:59 1 drops BID INES Administration Fluticasone/Vilanterol 1 puffs 11/11/21 09:00 11/11/21 08:45 Fluticasone/Vilanterol 200/25mcg 14 Puffs/Inhaler INH 12/11/21 08:59 1 puffs DAILY INES Administration Furosemide 20 mg 11/11/21 09:00 11/11/21 08:45 Furosemide 20 Mg Tab PO 12/11/21 08:59 Not Given QAM INES Pantoprazole Sodium 40 mg/ 100 mls @ 20 mls/hr 11/10/21 20:45 11/11/21 13:08 Dextrose IV 12/10/21 20:44 8 mg/hr Q5H INES 20 mls/hr Administration 8 MG/HR Sodium Chloride 1,000 mls @ 100 mls/hr 11/10/21 22:45 11/11/21 10:03 Nss 1000ml IV 11/11/21 18:44 100 mls/hr .Q10H INES Administration Lorazepam 1 mg/ Syringe 1 mls @ 2 mls/min 11/11/21 06:34 11/11/21 14:27 IV 12/11/21 06:33 2 mls/min Q4H PRN Administration Anxiety Insulin Aspart 0 units 11/11/21 07:30 11/11/21 12:01 Insulin Aspart Per Unit SC 12/11/21 07:29 Not Given ACHS INES Past Medical History Medical History Anxiety Aortic valve insufficiency Moderate per 07/[address] 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, reports no residual deficits, no issues since Past Family History Family History Mother Diabetes Ovarian cancer Hypertension Kidney disease Father Diabetes Cardiac disorder Hypertension Stroke Alcohol abuse Other specified hearing loss, bilateral Aunt Breast cancer Brother Cancer Alcohol abuse Daughter , peritonitis Alcohol abuse Anxiety Dementia Family/Other Depression Anxiety Other No significant family history Denies family history of Colorectal cancer Past Surgical History Surgical History H/O sinus surgery H/O tubal ligation History of cholecystectomy History of esophagogastroduodenoscopy (EGD) (~2011) History of hysterectomy with unilateral oopherectomy- 1978 History of lumbar laminectomy 2000 History of orthopedic surgery rhizotomy- pt unsure about this S/P cataract surgery Social History Smoking Status: Former smoker tobacco type: cigarettes Smoking cigarettes per day: 5 Hx Alcohol Use: No Hx Substance Use: No substance use type: does not use Substance Use Type Other:: medical use Last Used Substance: Days (ago) Last Used Substance Other:: 2019 Physical Exam Vital Signs Last Vital Signs Temp 97.9 F 11/11/21 11:24 Pulse 89 11/11/21 11:24 Resp 19 11/11/21 11:24 BP 102/58 L 11/11/21 11:24 Pulse Ox 93 11/11/21 11:24 Testing Laboratory Results 11/11/21 03:11 11/10/21 20:45 PT 11.5 Seconds (9.0-12.0) 11/10/21 20:45 INR 1.1 (0.9-1.1) 11/10/21 20:45 APTT 26.0 Seconds (21.0-31.0) 11/10/21 20:45 Hemoglobin A1c 6.6 % (4.5-5.6) H 11/11/21 03:11 Blood Type A Positive 11/10/21 20:45 Antibody Screen NEGATIVE 11/10/21 20:45 11/11/21 11/11/21 11:23 08:52 POC Glucose 129 H 119 H Electrocardiogram Date: 11/10/21 Sinus tachycardia Low voltage QRS Left posterior fascicular block Cannot rule out Inferior infarct , age undetermined Abnormal ECG When compared with ECG of 24-SEP-2021 06:00, Vent. rate has increased BY 45 BPM Left posterior fascicular block is now Present Nonspecific T wave abnormality now evident in Anterolateral leads Confirmed by Mark Salazar ([id number]) on 11/11/2021 2:07:28 PM Chest X-Ray Date: 11/10/21 IMPRESSION: 1. There is a decreased inspiratory effort with otherwise no acute chest disease. Other Testing Echocardiogram Date: 07/25/21 Normal LV size and systolic function with no regional wall motion abnormalities Mild LVH LV EF 60% Grade 1 diastolic dysfunction of LV RV dilation RV systolic function is normal with RVH Moderate central aortic insufficiency Moderate TR Severely elevated pulmonary artery pressures, estimated PASP 79 mmHg Prior study from 07/17/20 the PA pressure is now severe (increased from 55 to 79 mmHg) Stress Test Date: 09/11/20 Type: DSE Resting EF: 62% Resting LV Function: normal Resting RWMA: + none Negative dobutamine stress echocardiogram and EKG for ischemia at 104% MPHR
[2021-11-11] MEDS ORDERED: ATROPINE SULFATE 0.1 MG/ML 10ML SYR IV PRN ×2 (15:23→16:12)
[2021-11-11] MEDS ORDERED: fentaNYL citrate 100 MCG/2 ML VIAL IV PRN ×2 (15:23→16:12)
[2021-11-11] MEDS ORDERED: ONDANSETRON INJ 2 MG/ML 2 ML VIAL IV PRN ×2 (15:23→16:12)
[2021-11-11] MEDS ORDERED: ePHEDrine sulfate 50 MG/ML AMP IV PRN (15:23)
--- NOTE | 2021-11-11 15:46 | XCELERA ---
[id number]
[2021-11-11] MEDS ORDERED: PROPOFOL IV EMULSION 10 MG/ML 20 ML VIAL IV ONE (15:47)
[2021-11-11] MEDS ORDERED: ONDANSETRON INJ 2 MG/ML 2 ML VIAL ONE (15:47)
[2021-11-11] MEDS ORDERED: LIDOCAINE 2% 2 ML VIAL/AMP(20MG/ML) INFIL ONE (15:47)
[2021-11-11] MEDS ORDERED: fentaNYL citrate 100 MCG/2 ML VIAL ONE (15:47)
--- NOTE | 2021-11-11 15:51 | Communication Note ---
Date of Service: November 11, 2021 The patient underwent urgent ERCP this afternoon for suspected post sphincterotomy bleeding. There was evidence of a prior sphincterotomy and an ulceration as result of the prior electrocautery. There was a small amount of old blood seen at the sphincterotomy site suggestive of recent bleeding. Active bleeding was noted. A covered metal stent was placed into the biliary tree to help tamponade the sphincterotomy site and prevent recurrent bleeding. Recommendations Broad-spectrum antibiotic coverage for total of 5 days please If anticoagulation needed would consider use of unfractionated heparin for 48 to 72 hours in the event of rebleeding
--- NOTE | 2021-11-11 15:53 | History & Physical Bridge Note ---
Date of Service November 11, 2021 History & Physical Bridge Note I have examined the patient, reviewed the History & Physical and in the interval since the performance of the History & Physical I have noted the following changes of clinical significance: no changes noted. The patient presents with evidence of a post sphincterotomy bleed and elevated liver tests. Of note she is on Plavix and aspirin as an outpatient but had stopped these several days in advance. Her history is additionally complicated as she had a pulmonary embolus as an outpatient. The patient is at higher than average risk of perioperative complications due to her comorbid medical conditions. We discussed this at great length today. I discussed the risks of ERCP to include bleeding infection perforation pain failed biliary cannulation and need for follow-up studies. We will plan to do ERCP today with likely placement of a covered metal stent to control the suspected post sphincterotomy bleed.
--- NOTE | 2021-11-11 16:53 | GI REPORT ---
Patient Name: Eulalia Alvarenga Procedure Date: 11/11/2021 4:04 PM Date of : 1940 Admit Type: Inpatient Age: 81 Gender: Female Attending MD: Michaela Lucas DO Procedure: ERCP Providers: Michaela Lucas DO Referring MD: Maria Elena Cuevas Md Indications: Abdominal pain of suspected biliary origin, Suspected post-sphincterotomy bleeding, Post endoscopic sphincterotomy elevated liver enzymes Medicines: General Anesthesia Complications: No immediate complications. Estimated blood loss: Minimal. Estimated Blood Loss: Estimated blood loss was minimal. Procedure: Pre-Anesthesia Assessment: - Prior to the procedure, a History and Physical was performed, and patient medications, allergies and sensitivities were reviewed. The patient's tolerance of previous anesthesia was reviewed. - The risks and benefits of the procedure and the sedation options and risks were discussed with the patient. All questions were answered and informed consent was obtained. - Patient identification and proposed procedure were verified prior to the procedure by the physician, the nurse and the state historical society director. The procedure was verified in the procedure room. - Pre-procedure physical examination revealed no contraindications to sedation. - ASA Grade Assessment: IV - A patient with severe systemic disease that is a constant threat to life. - After reviewing the risks and benefits, the patient was deemed in satisfactory condition to undergo the procedure. - Immediately prior to administration of medications, the patient was re-assessed for adequacy to receive sedatives. - The heart rate, respiratory rate, oxygen saturations, blood pressure, adequacy of pulmonary ventilation, and response to care were monitored throughout the procedure. - The physical status of the patient was re-assessed after the procedure. - The anesthesia plan was to use monitored anesthesia care (MAC). After obtaining informed consent, the scope was passed under direct vision. Throughout the procedure, the patient's blood pressure, pulse, and oxygen saturations were monitored continuously. The Duodenoscope was introduced through the mouth, and advanced to the duodenum and used to inject contrast into the bile duct. The ERCP was accomplished without difficulty. The patient tolerated the procedure well. Findings: A cigarette lighter repairer film of the abdomen was obtained. Surgical clips, consistent with a previous cholecystectomy, were seen in the area of the right upper quadrant of the abdomen. The esophagus was successfully intubated under direct vision without detailed examination of the pharynx, larynx, and associated structures, and upper GI tract. The upper GI tract was grossly normal. The major papilla was located partially within a diverticulum. A biliary sphincterotomy had been performed. The sphincterotomy appeared open. The major papilla was ulcerated, consistent with a prior sphincterotomy. There was a small amount of old blood around the site suggestive of recent bleeding. The bile duct was deeply cannulated with the short-nosed traction sphincterotome and guidewire. Contrast was injected. I personally interpreted the bile duct images. Contrast extended to the hepatic ducts. The main bile duct was moderately dilated and diffusely dilated. The largest diameter was 12 mm. To discover objects, the biliary tree was swept with a 12 mm balloon starting at the bifurcation. Nothing was found. One 10 Fr by 6 cm ([place] [employer], [id number], [id number]) covered metal stent was placed 6 cm into the common bile duct to tamponade the prior sphincterotomy site (prevent recurrent bleeding). Bile flowed through the stent. The stent was in good position. The endoscope was withdrawn from the patient. The total fluoroscopy exposure time was 19 seconds. Impression: - The major papilla was located partially within a diverticulum. - Prior biliary sphincterotomy appeared open. - The major papilla appeared to be ulcerated. - The entire main bile duct was moderately dilated. - The biliary tree was swept and nothing was found. - One covered metal stent was placed into the common bile duct. Recommendation: - Return patient to [facility] for [facility] care. - Use broad spectrum antibiotics for 5 days. - Repeat ERCP in 6-8 weeks to remove stent. Michaela Lucas D.O. Michaela Lucas DO 11/11/2021 4:52:42 PM This report has been signed electronically. Note Initiated On: 11/11/2021 4:04 PM Number of Addenda: 0 I attest to the content of the Intraoperative Record and orders documented therein, exceptions below {[id number]}
--- NOTE | 2021-11-11 16:55 | Post Operative Brief Note ---
Immediate Post Op Note v1 Date of Surgery November 11, 2021 Pre & Post Diagnosis Operation Date: 11/11/21 13:05 Pre-Op Diagnosis: GI BLEED I identified the patient and participated in the time-out.: Yes Procedure Operation Date: 11/11/21 13:05 ERCP with placment of a covered metal stent Surgeon Michaela Lucas DO Platen Drier Operator none Estimated Blood Loss 0 Findings Consistent with Post-Op Diagnosis
[2021-11-11] MEDS ORDERED: SUCCINYLCHOLINE CHLORIDE 20 MG/ML 10 ML VIAL IV ONE (16:58)
[2021-11-11] MEDS ORDERED: ETOMIDATE 2 MG/ML 20 ML VIAL IV ONE (16:58)
[2021-11-11] MEDS ORDERED: ENOXAPARIN 1.5 MG/KG SC SCH (17:00)
--- NOTE | 2021-11-11 17:01 | Anesthesiology Progress Note ---
Date of Service November 11, 2021 Anesthesia Post Procedure Vital Signs Vital Signs: Temp Pulse Pulse Resp BP BP Pulse Ox 11/11/21 16:09 82 11/11/21 15:55 98.4 F 91 H 17 141/100 H 94 11/11/21 11:24 97.9 F 89 19 102/58 L 93 11/11/21 08:00 95 H 11/11/21 07:26 97.9 F 97 H 18 99/65 L 92 11/11/21 03:57 98.1 F 85 20 106/64 95 11/11/21 01:33 84 11/11/21 01:20 97.5 F L 87 18 125/80 91 11/11/21 01:01 88 17 109/64 90 11/11/21 00:30 87 17 114/70 92 11/10/21 23:00 82 16 93/62 L 90 11/10/21 22:30 86 14 98/51 L 92 11/10/21 22:04 92 H 15 99/59 L 92 11/10/21 22:02 93 H 14 82/42 L 91 11/10/21 21:00 97 H 20 99/55 L 90 11/10/21 20:49 101 H 21 102/60 93 11/10/21 19:50 97.0 F L 86 18 99/65 L 100 Pain Intensity Lower Abdomen: Pain Intensity: 8 Transfer of Care Handoff Completed per policy Notes Mental Status: alert / awake / arousable and participated in evaluation Patient Amnestic to Procedure: Yes Nausea / Vomiting: adequately controlled Pain: adequately controlled Airway Patency, RR, SpO2: stable & adequate BP & HR: stable & adequate Hydration State: stable & adequate Anesthetic Complications: no major complications apparent and Pt Satisfied with anesthetic care
[2021-11-11] MEDS ORDERED: PIPERACILLIN/TAZOBACTAM 3.375 GM in DEXTROSE 5% 100 ML IV ONE (17:15)
[2021-11-11] MEDS ORDERED: metroNIDAZOLE 500 MG/100 ML BAG IV SCH (17:15)
--- NOTE | 2021-11-11 17:17 | Fluoroscopy Report ---
FL ERCP biliary ductal CLINICAL HISTORY: ERCP COMPARISON STUDY: 11/08/2021 FLUOROSCOPY TIME: 19 seconds. FLUOROSCOPIC IMAGES: 5 FINDINGS: Intraoperative ERCP was performed. Please see surgical note for further evaluation. IMPRESSION: Status post ERCP. ACT 112: Negative or not required by law. Electronically signed by: Vishal Rob M.D. 11/11/2021 5:14 PM
[2021-11-11] MEDS ORDERED: ENOXAPARIN 80 MG/0.8 ML SYR SQ SCH (18:00)
[2021-11-11] MEDS: PIPERACILLIN/TAZOBACTAM 3.375 GM in DEXTROSE 5% 100 ML IV SCH (23:50)
[2021-11-12] MEDS: LORazepam 1 MG in SYRINGE 0.5 ML IV PRN ×2 (00:14→06:13)
[2021-11-12] MEDS: PANTOprazole 40 MG in DEXTROSE 5% 100 ML IV SCH ×5 (01:10→21:10)
--- NOTE | 2021-11-12 01:31 | Communication Note ---
Date of Service: November 12, 2021 Night resident note I was notified by RN around 00:45 that patient remained confused and disoriented after her ERCP which occurred around 17:00 on 11/12. Patient's 6L O2 requirement was also noted; patient did not have an oxygen requirement prior to her operation. Per RN, patient remained sedated for a few hours post-op before aw akening disoriented. When I arrived, patient was intermittently alert, oriented x 0, and was removing her telemetry leads. She did not appear to be in acute distress. At that time, patient was being helped onto the bedpan. After patient was done about 20 minutes later, I reexamined patient, who in the interim had become alert, oriented to person, place, and president, though she was not oriented to time. Patient noted she was not in pain, her breathing was comfortable, and she had no complaints other than dry mouth and just having woken up from a bad dream. Repeat exam (01:30): BP 115/68, HR 90, RR 18, T36.8, O2 90% on 6L NC CV: RRR, no murmur appreciated, no LE edema Resp: faint rhonchi in lower bases bilaterally, CTABL elsewhere, breathing non- labored Abdomen: soft, nondistended, mild RUQ/LUQ tenderness, no RLQ/LLQ tenderness, BS present Neuro: AOx3, somnolent but interactive when awoken, no focal deficits appreciated A: 81yo female on POD#0 s/p ERCP for evaluation of a GI bleed, now with intermittent confusion/agitation likely secondary to post-op delirium - risk factors include age, recent operation, neuromuscular blockers, and benzos. Appears to be resolving. Low concern for CVA given rapid recovery during my serial examinations. Plan: Labs and imaging not indicated at this time given resolution of symptoms and normal neuro exam Verbal redirection for any further episodes of agitation / removing medical equipment Fall precautions Avoid further benzos, opioids, or other Beers Criteria meds if possible Continue oxygen as needed Norm Mitchell, PGY-2 Resident Activity Tracking Resident Involvement: Resident Care Provided and Landscape Laborer Coverage Note Care Provided: Adult Hospital Medicine
[2021-11-12] MEDS: CIPROFLOXACIN / D5W 400 MG/200 ML BAG IV SCH ×2 (02:14→14:19)
[2021-11-12] MEDS: PIPERACILLIN/TAZOBACTAM 3.375 GM in DEXTROSE 5% 100 ML IV SCH ×3 (06:15→23:33)
[2021-11-12 06:59] LABS: Basophils # (auto) 0.03 K/uL (0-0.2); Basophils % (auto) 0.5 %; Eosinophils # (auto) 0.17 K/uL (0-0.5); Eosinophils % (auto) 2.8 %; Hematocrit (blood only) 31.2 % (37-47); Hemoglobin 10.6 g/dL (12.0-16.0); Immature Granulocytes # (auto) 0.02 K/uL (0.00-0.02); Immature Granulocytes % (auto) 0.3 %; Lymphocytes # (auto) 1.49 K/uL (1.2-3.4); Lymphocytes % (auto) 24.5 %; Mean Corpuscular Hemoglobin 31.5 pg (25-34); Mean Corpuscular Volume 92.6 fL (80-100); Mean Platelet Volume 9.7 fL (7.4-10.4); Monocytes # (auto) 0.74 K/uL (0.11-0.59); Monocytes % (auto) 12.2 %; Neutrophils # (auto) 3.64 K/uL (1.4-6.5); Neutrophils % (auto) 59.7 %; Platelet Count 201 K/uL (130-400); RDW Coefficient of Variation 14.2 % (11.5-14.5); RDW Standard Deviation 47.8 fL (36.4-46.3); Red Blood Count 3.37 M/uL (4.2-5.4); White Blood Count 6.09 K/uL (4.8-10.8)
[2021-11-12 07:17] LABS: Albumin Globulin Ratio 1.3 (0.9-2); BUN Creatinine Ratio 11.8 (10-20); Bilirubin,Total 0.8 mg/dl (0.2-1.0); Calcium 7.5 mg/dl (8.5-10.1); Creatinine Clr Calc Pharmacy 41.7 ml/min; Est GFR (African American) 85.3 ml/min; Est GFR (Non-African American) 73.6 ml/min; Globulin 2.3 gm/dl (2.5-4.0); Potassium 3.7 mmol/L (3.5-5.1); Total Protein 5.3 gm/dl (6.0-8.3)
[2021-11-12] MEDS ORDERED: Nursing to Pharmacy Communication SCH ×2 (07:30→12:15)
[2021-11-12] MEDS: INSULIN ASPART PER UNIT SC SCH ×5 (07:47→20:45)
[2021-11-12] MEDS: DORZOLAMIDE/TIMOLOL 22.3/6.8MG/ML 10 ML BTL OPB SCH ×2 (09:10→20:45)
[2021-11-12] MEDS: FUROSEMIDE 20 MG TAB PO SCH (09:11)
[2021-11-12] MEDS: FLUTICASONE/VILANTEROL 200/25MCG 14 PUFFS/INHALER INH SCH (09:11)
[2021-11-12] MEDS: MoRPHine SULFATE 2 MG/ML CARP IV PRN ×3 (09:54→23:32)
--- NOTE | 2021-11-12 10:55 | Gastroenterology Progress Note ---
Date of Service November 12, 2021 Assessment & Plan Admission and Anticipated Discharge Date Admission Date: November 11, 2021 Supervising Physician Co-Signing Physician Notes 81 yo fm s/p first ercp on 11/08 with post sphincteromy bleeding s/p stent placement on 11/11. No further active gi bleeding noted. Slighty fluctation in hgb. No bun rise. PPI daily and follow further post operative recommendations as delineated by Dr. Lucas yesterday. call if questions. Subjective No acute complaints The patient is a poor historian as noted on h and P from 11/08. She underwent and ercp on 11/08 for intermittent abd pain thought to be partiall biliary in nature- during this ercp a sphincterotomy was performed. A stent was placed on 11/11 due to concerns for post sphincterotomy bleeding. She is moving around in bed and a bit agitated but the nurses were settling her down. No reports of further bleeding. No other complaints voiced. Review of Systems Review of Systems: All systems reviewed & are unremarkable except as noted in HPI & below Physical Exam Physical Exam: Thin elderly woman in nad Gastrointestinal (Abdomen): Soft Skin: slight bruised noted on her left leg Results & Data ([facility]) Vital Signs (Past 12 Hours) Vital Signs Temp Pulse Pulse Resp BP Pulse Ox 11/12/21 09:44 93 H 11/12/21 08:00 36.7 C 86 18 142/64 H 95 11/12/21 03:56 36.6 C 91 H 18 146/72 H 94 11/12/21 00:42 36.8 C 90 18 115/68 97 11/12/21 00:00 85 Laboratory Results Labs reviewed Slight downtrend in hgb
--- NOTE | 2021-11-12 13:54 | Electrocardiogram Report ---
Test Reason : Blood Pressure : / mmHG Vent. Rate : 095 BPM Atrial Rate : 095 BPM P-R Int : 156 ms QRS Dur : 062 ms QT Int : 366 ms P-R-T Axes : 079 076 041 degrees QTc Int : 459 ms Poor data quality, interpretation may be adversely affected Normal sinus rhythm Nonspecific T wave abnormality Abnormal ECG When compared with ECG of 10-NOV-2021 20:37, Left posterior fascicular block is no longer Present Minimal criteria for Inferior infarct are no longer Present Nonspecific T wave abnormality, improved in Inferior leads Confirmed by Mark Salazar ([id number]) on 11/12/2021 1:54:00 PM Referred By: Dalton Rendon Confirmed By:Mark Salazar
--- NOTE | 2021-11-12 15:50 | Hospitalist Progress Note ---
Date of Service November 12, 2021 Assessment & Plan (1) GI bleed: Plan: 81yo female presents with a one-day history of hematochezia in the setting of undergoing ERCP for choledocholithiasis as well as EGD for polyp removal two days ago. PMH is notable for CAD, asthma, fibromyalgia, GERD, hypothyroidism, and PMR Initially had ERCP on 11/08 with post sphincteromy bleeding, brought to the hospital and patient is now s/p stent placement on 11/11. No new bleeds, hb trended low a little Will continue to monitor hb (2) Pulmonary embolism: Plan: found to have subsegmental PE 2 D ECHO shows evidence of ventricular strain will consult vascular surgery Continue anticoagulation with Xarelto 15mg BID (3) Elevated troponin: Plan: most likely strain from pulmonary embolism No ekg changes trop has been trending down cardiology on consult (4) Agitation: Plan: patient appears uncomfortable, tossing up and down in bed could be due to PE will continue oxygen supplementation monitor pulse ox (5) Polymyalgia rheumatica: Plan: Polymyalgia rheumatica Patient with chronic history of PMR controlled with prednisone 2.5mg daily Holding prednisone while NPO, will need to be restarted when diet is advanced (6) Fibromyalgia: Plan: Polymyalgia rheumatica Patient with chronic history of PMR controlled with prednisone 2.5mg daily Holding prednisone while NPO, will need to be restarted when diet is advanced (7) Asthma: (8) Chest pain: (9) Abdominal pain: (10) Current chronic use of systemic steroids: (11) GERD (gastroesophageal reflux disease): (12) Hypothyroid: Plan: FEN: NPO, NSS @ 100mL/hr Code status: full code DVT ppx: SCDs Consults: GI PT/OT: ordered Dispo: telemetry Admission and Anticipated Discharge Date Admission Date: November 11, 2021 Subjective patient seen and examined, still restless, sitter by the bedside Review of Systems Review of Systems: All systems reviewed are negative, apart from the ones contained in the history. Physical Exam Physical Exam: The patient is awake, alert and oriented 3, well developed and well nourished, normocephalic and atraumatic, lying in bed and in no acute distress. HEENT--PERRL, EOMI, mucous membranes and oropharynx mildly dry Neck--supple. No JVD. No bruits. Thyroid normal, trachea midline, no adenopathy. Heart--normal S1 and S2. No murmurs, rubs or gallops. Lungs--clear bilaterally, no respiratory distress, no accessory muscle use. Abdomen--normal bowel sounds and soft. Mild epigastric and left sided abdominal pain Extremities--no cyanosis or clubbing. No edema. Dermatologic--normal skin turgor, normal color, no abnormal lymph nodes, no rash. Neurologic--cranial nerves II through XII grossly intact. Rheumatologic--normal range of motion. Psychiatric--normal affect. Results & Data Results & Data ([facility]) Vital Signs (Past 12 Hours) Vital Signs Temp Pulse Pulse Resp BP Pulse Ox 11/12/21 15:43 77 11/12/21 13:02 97.5 F L 78 18 96/57 L 94 11/12/21 12:59 98.1 F 78 18 131/58 L 96 11/12/21 09:44 93 H 11/12/21 08:00 98.1 F 86 18 142/64 H 95 11/12/21 03:56 97.9 F 91 H 18 146/72 H 94 PG Care Time/CCT Total # of Minutes Spent Total Time Spent with Patient: Total time spent is greater than 50% in coordination of care (as documented) at patient's floor/unit and/or counseling patient: Coding Level of Care Code 89436 Subseq Hosp Care Lvl 2 Diagnoses GI bleed K92.2 Pulmonary embolism I26.99 Elevated troponin R77.8 Polymyalgia rheumatica M35.3 Fibromyalgia M79.7 Asthma J45.20 Asthma severity: mild Asthma persistence: intermittent Asthma complication type: uncomplicated Chest pain R07.9 Abdominal pain R10.9 Current chronic use of systemic steroids Z79.52 GERD (gastroesophageal reflux disease) K21.9 Esophagitis presence: esophagitis presence not specified Hypothyroid E03.9 Agitation R45.1 Time Spent (min) 35 (1) Asthma Asthma severity: mild Asthma persistence: intermittent Asthma complication type: uncomplicated Qualified Code(s): J45.20 - Mild intermittent asthma, uncomplicated (2) GERD (gastroesophageal reflux disease) Esophagitis presence: esophagitis presence not specified Qualified Code(s): K21.9 - Gastro-esophageal reflux disease without esophagitis
[2021-11-12] MEDS: RIVAROXABAN 15 MG TAB PO SCH (20:21)
[2021-11-13] MEDS ORDERED: MoRPHine SULFATE 2 MG/ML CARP IV STA (00:31)
[2021-11-13] MEDS: MoRPHine SULFATE 2 MG/ML CARP IV PRN ×4 (00:45→19:15)
[2021-11-13] MEDS: MELATONIN 3 MG TAB PO PRN (00:46)
[2021-11-13] MEDS: PANTOprazole 40 MG in DEXTROSE 5% 100 ML IV SCH ×3 (01:45→10:08)
[2021-11-13] MEDS: CIPROFLOXACIN / D5W 400 MG/200 ML BAG IV SCH (03:54)
[2021-11-13] MEDS: PIPERACILLIN/TAZOBACTAM 3.375 GM in DEXTROSE 5% 100 ML IV SCH ×2 (06:05→15:38)
[2021-11-13 07:38] LABS: Hematocrit (blood only) 29.5 % (37-47); Hemoglobin 10.1 g/dL (12.0-16.0); Mean Corpuscular Hemoglobin 31.4 pg (25-34); Mean Corpuscular Hgb Conc 34.2 g/dL (32-36); Mean Corpuscular Volume 91.6 fL (80-100); Mean Platelet Volume 9.4 fL (7.4-10.4); Platelet Count 199 K/uL (130-400); RDW Coefficient of Variation 13.9 % (11.5-14.5); RDW Standard Deviation 46.3 fL (36.4-46.3); Red Blood Count 3.22 M/uL (4.2-5.4); White Blood Count 5.83 K/uL (4.8-10.8)
[2021-11-13 08:10] LABS: BUN Creatinine Ratio 7.7 (10-20); C Reactive Protein 3.52 mg/dl (0-0.5); Calcium 7.8 mg/dl (8.5-10.1); Creatinine Clr Calc Pharmacy 44.9 ml/min; Est GFR (African American) 82.6 ml/min; Est GFR (Non-African American) 71.3 ml/min; Potassium 3.2 mmol/L (3.5-5.1)
[2021-11-13] MEDS: FLUTICASONE/VILANTEROL 200/25MCG 14 PUFFS/INHALER INH SCH (08:50)
[2021-11-13] MEDS: DORZOLAMIDE/TIMOLOL 22.3/6.8MG/ML 10 ML BTL OPB SCH ×2 (08:50→22:43)
[2021-11-13] MEDS: DULoxetine HCL 60 MG CAP PO SCH (08:50)
[2021-11-13] MEDS: RIVAROXABAN 15 MG TAB PO SCH ×2 (08:51→19:44)
[2021-11-13] MEDS: FUROSEMIDE 20 MG TAB PO SCH (08:51)
[2021-11-13] MEDS: INSULIN ASPART PER UNIT SC SCH ×4 (08:59→20:32)
[2021-11-13] MEDS: PANTOprazole 40 MG TAB PO SCH (10:07)
[2021-11-13] MEDS: POTASSIUM CHLORIDE CRTAB 20 MEQ TABCR PO STA ×2 (11:27→11:36)
[2021-11-13] MEDS ORDERED: POTASSIUM CHLORIDE 20 MEQ/15 ML UDC PO STA (11:37)
--- NOTE | 2021-11-13 16:42 | Hospitalist Progress Note ---
Date of Service November 13, 2021 Assessment & Plan (1) GI bleed: Plan: 81yo female presents with a one-day history of hematochezia in the setting of undergoing ERCP for choledocholithiasis as well as EGD for polyp removal two days ago. PMH is notable for CAD, asthma, fibromyalgia, GERD, hypothyroidism, and PMR Initially had ERCP on 11/08 with post sphincteromy bleeding, brought to the hospital and patient is now s/p stent placement on 11/11. No new bleeds, hb trended low a little Will continue to monitor hb (2) Pulmonary embolism: Plan: found to have subsegmental PE 2 D ECHO shows evidence of increased right ventricular pressure, patient hemodynamically stable will consult vascular surgery Continue anticoagulation with Xarelto 15mg BID (3) Elevated troponin: Plan: most likely strain from pulmonary embolism No ekg changes trop has been trending down cardiology on consult (4) Agitation: Plan: patient appears uncomfortable, tossing up and down in bed could be due to PE will continue oxygen supplementation monitor pulse ox (5) Polymyalgia rheumatica: Plan: Polymyalgia rheumatica Patient with chronic history of PMR controlled with prednisone 2.5mg daily Holding prednisone while NPO, will need to be restarted when diet is advanced (6) Fibromyalgia: Plan: Polymyalgia rheumatica Patient with chronic history of PMR controlled with prednisone 2.5mg daily Holding prednisone while NPO, will need to be restarted when diet is advanced (7) Asthma: (8) Chest pain: (9) Abdominal pain: (10) Current chronic use of systemic steroids: (11) GERD (gastroesophageal reflux disease): (12) Hypothyroid: Plan: FEN: NPO, NSS @ 100mL/hr Code status: full code DVT ppx: SCDs Consults: GI PT/OT: ordered Dispo: telemetry Admission and Anticipated Discharge Date Admission Date: November 11, 2021 Subjective patient seen and examined, feels overall better, but still feels anxious Review of Systems Review of Systems: All systems reviewed are negative, apart from the ones contained in the history. Physical Exam Physical Exam: The patient is awake, alert and oriented 3, well developed and well nourished, normocephalic and atraumatic, lying in bed and in no acute distress. HEENT--PERRL, EOMI, mucous membranes and oropharynx mildly dry Neck--supple. No JVD. No bruits. Thyroid normal, trachea midline, no adenopathy. Heart--normal S1 and S2. No murmurs, rubs or gallops. Lungs--clear bilaterally, no respiratory distress, no accessory muscle use. Abdomen--normal bowel sounds and soft. Mild epigastric and left sided abdominal pain Extremities--no cyanosis or clubbing. No edema. Dermatologic--normal skin turgor, normal color, no abnormal lymph nodes, no rash. Neurologic--cranial nerves II through XII grossly intact. Rheumatologic--normal range of motion. Psychiatric--normal affect. Results & Data Results & Data ([facility]) Vital Signs (Past 12 Hours) Vital Signs Temp Pulse Resp BP Pulse Ox 11/13/21 15:29 89 16 94/59 L 94 11/13/21 11:30 78 17 93/56 L 98 11/13/21 07:27 97.5 F L 85 16 100/59 L 90 11/13/21 05:13 76 20 110/62 93 PG Care Time/CCT Total # of Minutes Spent Total Time Spent with Patient: Total time spent is greater than 50% in coordination of care (as documented) at patient's floor/unit and/or counseling patient: Coding Level of Care Code 91540 Subseq Hosp Care Lvl 2 Diagnoses GI bleed K92.2 Pulmonary embolism I26.99 Elevated troponin R77.8 Agitation R45.1 Polymyalgia rheumatica M35.3 Fibromyalgia M79.7 Asthma J45.20 Asthma severity: mild Asthma persistence: intermittent Asthma complication type: uncomplicated Chest pain R07.9 Abdominal pain R10.9 Current chronic use of systemic steroids Z79.52 GERD (gastroesophageal reflux disease) K21.9 Esophagitis presence: esophagitis presence not specified Hypothyroid E03.9 Time Spent (min) 35 (1) Asthma Asthma severity: mild Asthma persistence: intermittent Asthma complication type: uncomplicated Qualified Code(s): J45.20 - Mild intermittent asthma, uncomplicated (2) GERD (gastroesophageal reflux disease) Esophagitis presence: esophagitis presence not specified Qualified Code(s): K21.9 - Gastro-esophageal reflux disease without esophagitis
[2021-11-13] MEDS: traZODone HCL 50 MG TAB PO SCH (19:44)
[2021-11-13] MEDS: GABAPENTIN 300 MG CAP PO SCH (19:44)
[2021-11-14] MEDS: PIPERACILLIN/TAZOBACTAM 3.375 GM in DEXTROSE 5% 100 ML IV SCH ×4 (00:14→22:30)
[2021-11-14 06:11] LABS: Hematocrit (blood only) 30.8 % (37-47); Hemoglobin 10.8 g/dL (12.0-16.0); Mean Corpuscular Hgb Conc 35.1 g/dL (32-36); Mean Corpuscular Volume 91.4 fL (80-100); Mean Platelet Volume 9.5 fL (7.4-10.4); Platelet Count 201 K/uL (130-400); RDW Coefficient of Variation 14.1 % (11.5-14.5); RDW Standard Deviation 46.1 fL (36.4-46.3); Red Blood Count 3.37 M/uL (4.2-5.4); White Blood Count 4.91 K/uL (4.8-10.8)
[2021-11-14 06:35] LABS: BUN Creatinine Ratio 8.1 (10-20); Calcium 8.1 mg/dl (8.5-10.1); Creatinine Clr Calc Pharmacy 42.8 ml/min; Est GFR (African American) 88.1 ml/min
[2021-11-14] MEDS ORDERED: POTASSIUM CHLORIDE CRTAB 20 MEQ TABCR PO STA (07:17)
[2021-11-14] MEDS: MoRPHine SULFATE 2 MG/ML CARP IV PRN ×2 (08:56→21:37)
[2021-11-14] MEDS: FLUTICASONE/VILANTEROL 200/25MCG 14 PUFFS/INHALER INH SCH (08:57)
[2021-11-14] MEDS: RIVAROXABAN 15 MG TAB PO SCH ×2 (08:58→20:04)
[2021-11-14] MEDS: DULoxetine HCL 60 MG CAP PO SCH (08:58)
[2021-11-14] MEDS: PANTOprazole 40 MG TAB PO SCH (08:59)
[2021-11-14] MEDS: DORZOLAMIDE/TIMOLOL 22.3/6.8MG/ML 10 ML BTL OPB SCH ×2 (08:59→20:07)
[2021-11-14] MEDS: INSULIN ASPART PER UNIT SC SCH ×4 (09:04→20:19)
[2021-11-14] MEDS: FUROSEMIDE 20 MG TAB PO SCH (10:29)
--- NOTE | 2021-11-14 15:25 | Hospitalist Progress Note ---
Date of Service November 14, 2021 Assessment & Plan (1) GI bleed: Plan: 81yo female presents with a one-day history of hematochezia in the setting of undergoing ERCP for choledocholithiasis as well as EGD for polyp removal two days ago. PMH is notable for CAD, asthma, fibromyalgia, GERD, hypothyroidism, and PMR Initially had ERCP on 11/08 with post sphincteromy bleeding, brought to the hospital and patient is now s/p stent placement on 11/11. No new bleeds, hb trended low a little Will continue to monitor hb (2) Pulmonary embolism: Plan: Patient was found to have subsegmental PE 2 D ECHO shows evidence of increased right ventricular pressure, patient hemodynamically stable will consult vascular surgery to opine Continue anticoagulation with Xarelto 15mg BID (3) Elevated troponin: Plan: most likely strain from pulmonary embolism No ekg changes trop has been trending down cardiology on consult (4) Agitation: Plan: much improved (5) Polymyalgia rheumatica: Plan: Polymyalgia rheumatica Patient with chronic history of PMR controlled with prednisone 2.5mg daily Holding prednisone while NPO, will need to be restarted when diet is advanced (6) Fibromyalgia: Plan: Polymyalgia rheumatica Patient with chronic history of PMR controlled with prednisone 2.5mg daily Holding prednisone while NPO, will need to be restarted when diet is advanced (7) Asthma: (8) Chest pain: (9) Abdominal pain: (10) Current chronic use of systemic steroids: (11) GERD (gastroesophageal reflux disease): (12) Hypothyroid: Plan: patient will need rehab, case mgt on consult FEN: NPO, NSS @ 100mL/hr Code status: full code DVT ppx: SCDs Consults: GI PT/OT: ordered Dispo: telemetry Admission and Anticipated Discharge Date Admission Date: November 11, 2021 Subjective patient seen and examined, feels overall better, sitting up in the chair Review of Systems Review of Systems: All systems reviewed are negative, apart from the ones contained in the history. Physical Exam Physical Exam: The patient is awake, alert and oriented 3, well developed and well nourished, normocephalic and atraumatic, lying in bed and in no acute distress. HEENT--PERRL, EOMI, mucous membranes and oropharynx mildly dry Neck--supple. No JVD. No bruits. Thyroid normal, trachea midline, no adenopathy. Heart--normal S1 and S2. No murmurs, rubs or gallops. Lungs--clear bilaterally, no respiratory distress, no accessory muscle use. Abdomen--normal bowel sounds and soft. Mild epigastric and left sided abdominal pain Extremities--no cyanosis or clubbing. No edema. Dermatologic--normal skin turgor, normal color, no abnormal lymph nodes, no rash. Neurologic--cranial nerves II through XII grossly intact. Rheumatologic--normal range of motion. Psychiatric--normal affect. Results & Data Results & Data ([facility]) Vital Signs (Past 12 Hours) Vital Signs Temp Pulse Pulse Resp BP BP Pulse Ox 11/14/21 11:10 98.1 F 77 18 82/46 L 99 11/14/21 07:24 67 11/14/21 07:22 97.9 F 70 17 84/48 L 94 11/14/21 04:05 97.7 F 61 18 120/62 93 PG Care Time/CCT Total # of Minutes Spent Total Time Spent with Patient: Total time spent is greater than 50% in coordination of care (as documented) at patient's floor/unit and/or counseling patient: Coding Level of Care Code 89761 Subseq Hosp Care Lvl 2 Diagnoses GI bleed K92.2 Pulmonary embolism I26.99 Elevated troponin R77.8 Agitation R45.1 Polymyalgia rheumatica M35.3 Fibromyalgia M79.7 Asthma J45.20 Asthma severity: mild Asthma persistence: intermittent Asthma complication type: uncomplicated Chest pain R07.9 Abdominal pain R10.9 Current chronic use of systemic steroids Z79.52 GERD (gastroesophageal reflux disease) K21.9 Esophagitis presence: esophagitis presence not specified Hypothyroid E03.9 Time Spent (min) 35 (1) Asthma Asthma severity: mild Asthma persistence: intermittent Asthma complication type: uncomplicated Qualified Code(s): J45.20 - Mild intermittent asthma, unc omplicated (2) GERD (gastroesophageal reflux disease) Esophagitis presence: esophagitis presence not specified Qualified Code(s): K21.9 - Gastro-esophageal reflux disease without esophagitis
[2021-11-14] MEDS: GABAPENTIN 300 MG CAP PO SCH (20:04)
[2021-11-14] MEDS: traZODone HCL 50 MG TAB PO SCH (20:05)
[2021-11-14] MEDS: MELATONIN 3 MG TAB PO PRN (21:37)
[2021-11-15] MEDS: PIPERACILLIN/TAZOBACTAM 3.375 GM in DEXTROSE 5% 100 ML IV SCH ×2 (05:46→14:27)
[2021-11-15 07:51] LABS: Hematocrit (blood only) 30.9 % (37-47); Hemoglobin 10.5 g/dL (12.0-16.0); Mean Corpuscular Volume 94.2 fL (80-100); Mean Platelet Volume 9.9 fL (7.4-10.4); Platelet Count 237 K/uL (130-400); RDW Coefficient of Variation 14.5 % (11.5-14.5); RDW Standard Deviation 49.3 fL (36.4-46.3); Red Blood Count 3.28 M/uL (4.2-5.4)
[2021-11-15] MEDS: INSULIN ASPART PER UNIT SC SCH ×4 (07:53→22:20)
[2021-11-15 08:11] LABS: BUN Creatinine Ratio 8.2 (10-20); Calcium 8.3 mg/dl (8.5-10.1); Creatinine Clr Calc Pharmacy 47.9 ml/min; Est GFR (African American) 89.5 ml/min; Est GFR (Non-African American) 77.2 ml/min; Potassium 3.9 mmol/L (3.5-5.1)
[2021-11-15] MEDS: DORZOLAMIDE/TIMOLOL 22.3/6.8MG/ML 10 ML BTL OPB SCH ×2 (08:16→22:18)
[2021-11-15] MEDS: RIVAROXABAN 15 MG TAB PO SCH ×2 (08:17→22:21)
[2021-11-15] MEDS: PANTOprazole 40 MG TAB PO SCH (08:17)
[2021-11-15] MEDS: DULoxetine HCL 60 MG CAP PO SCH (08:17)
[2021-11-15] MEDS: FLUTICASONE/VILANTEROL 200/25MCG 14 PUFFS/INHALER INH SCH (08:18)
[2021-11-15] MEDS: FUROSEMIDE 20 MG TAB PO SCH (08:18)
[2021-11-15] MEDS ORDERED: NON-FORMULARY MEDICATION (Peg 400-Propylene Glycol [Systane Ultra] 0.4-0.3 % drops) OP SCH (09:00)
[2021-11-15] MEDS ORDERED: FEXOFENADINE HCL 180 MG TAB PO PRN (09:00)
[2021-11-15] MEDS ORDERED: CHOLECALCIFEROL 4000 UNIT PO SCH (09:00)
[2021-11-15] MEDS ORDERED: DULoxetine HCL 60 MG CAP PO SCH (09:00)
[2021-11-15] MEDS: traMADol HCL 50 MG TABLET PO SCH ×2 (10:20→22:26)
[2021-11-15] MEDS: TOPIRAMATE 100 MG TAB PO SCH ×2 (11:07→22:22)
[2021-11-15] MEDS: MULTIVITAMIN TAB PO SCH (11:08)
[2021-11-15] MEDS: LEVOTHYROXINE SODIUM 75 MCG TABLET PO SCH (11:08)
[2021-11-15] MEDS: MAGNESIUM OXIDE 400 MG TAB PO SCH (11:08)
[2021-11-15] MEDS: CHOLECALCIFEROL 1,000 UNITS 25 MCG TAB PO SCH (11:08)
[2021-11-15] MEDS: DOCUSATE SODIUM 100 MG CAP PO SCH (11:09)
[2021-11-15] MEDS: predniSONE 2.5 MG TAB PO SCH (11:09)
[2021-11-15] MEDS: SPIRONOLACTONE 12.5 MG TAB PO SCH (11:09)
[2021-11-15] MEDS: ZINC SULFATE 220 MG CAPSULE PO SCH (11:09)
--- NOTE | 2021-11-15 14:14 | Hospitalist Progress Note ---
Date of Service November 15, 2021 Assessment & Plan (1) GI bleed: Plan: 81yo female presents with a one-day history of hematochezia in the setting of undergoing ERCP for choledocholithiasis as well as EGD for polyp removal two days ago. PMH is notable for CAD, asthma, fibromyalgia, GERD, hypothyroidism, and PMR Initially had ERCP on 11/08 with post sphincteromy bleeding, brought to the hospital and patient is now s/p stent placement on 11/11. No new bleeds, hb trended low a little Will continue to monitor hb (2) Pulmonary embolism: Plan: Patient was found to have subsegmental PE 2 D ECHO shows evidence of increased right ventricular pressure, patient hemodynamically stable will consult vascular surgery to opine Continue anticoagulation with Xarelto 15mg BID (3) Elevated troponin: Plan: most likely strain from pulmonary embolism No ekg changes trop has been trending down cardiology on consult (4) Agitation: Plan: much improved (5) Polymyalgia rheumatica: Plan: Polymyalgia rheumatica Patient with chronic history of PMR controlled with prednisone 2.5mg daily On Prednisone (6) Fibromyalgia: Plan: Polymyalgia rheumatica Patient with chronic history of PMR controlled with prednisone 2.5mg daily On Prednisone (7) Asthma: (8) Chest pain: (9) Abdominal pain: (10) Current chronic use of systemic steroids: (11) GERD (gastroesophageal reflux disease): (12) Hypothyroid: Plan: Initial plan was for rehab, however, I discussed with the son, who would prefer home with home health and home PT SW on consult. Patient lives with her grand daughter Code status: full code DVT ppx: SCDs Consults: GI PT/OT: ordered Dispo: telemetry Admission and Anticipated Discharge Date Admission Date: November 11, 2021 Subjective patient seen and examined, feels overall better, sitting up in the chair Review of Systems Review of Systems: All systems reviewed are negative, apart from the ones co ntained in the history. Physical Exam Physical Exam: The patient is awake, alert and oriented 3, well developed and well nourished, normocephalic and atraumatic, lying in bed and in no acute distress. HEENT--PERRL, EOMI, mucous membranes and oropharynx mildly dry Neck--supple. No JVD. No bruits. Thyroid normal, trachea midline, no adenopathy. Heart--normal S1 and S2. No murmurs, rubs or gallops. Lungs--clear bilaterally, no respiratory distress, no accessory muscle use. Abdomen--normal bowel sounds and soft. Mild epigastric and left sided abdominal pain Extremities--no cyanosis or clubbing. No edema. Dermatologic--normal skin turgor, normal color, no abnormal lymph nodes, no rash. Neurologic--cranial nerves II through XII grossly intact. Rheumatologic--normal range of motion. Psychiatric--normal affect. Results & Data Results & Data ([facility]) Vital Signs (Past 12 Hours) Vital Signs Temp Pulse Pulse Resp BP Pulse Ox 11/15/21 11:42 97.5 F L 53 L 18 93/62 L 97 11/15/21 07:52 97.7 F 72 22 100/50 L 93 11/15/21 07:07 64 11/15/21 03:51 97.5 F L 64 18 88/54 L 98 PG Care Time/CCT Total # of Minutes Spent Total Time Spent with Patient: Total time spent is greater than 50% in coordination of care (as documented) at patient's floor/unit and/or counseling patient: Coding Level of Care Code 65018 Subseq Hosp Care Lvl 2 Diagnoses GI bleed K92.2 Pulmonary embolism I26.99 Elevated troponin R77.8 Agitation R45.1 Polymyalgia rheumatica M35.3 Fibromyalgia M79.7 Asthma J45.20 Asthma severity: mild Asthma persistence: intermittent Asthma complication type: uncomplicated Chest pain R07.9 Abdominal pain R10.9 Current chronic use of systemic steroids Z79.52 GERD (gastroesophageal reflux disease) K21.9 Esophagitis presence: esophagitis presence not specified Hypothyroid E03.9 Time Spent (min) 35 (1) Asthma Asthma severity: mild Asthma persistence: intermittent Asthma complication type: uncomplicated Qualified Code(s): J45.20 - Mild intermittent asthma, uncomplicated (2) GERD (gastroesophageal reflux disease) Esophagitis presence: esophagitis presence not specified Qualified Code(s): K21.9 - Gastro-esophageal reflux disease without esophagitis
[2021-11-15] MEDS ORDERED: traZODone HCL 100 MG TAB PO SCH (21:00)
[2021-11-15] MEDS ORDERED: GABAPENTIN 300 MG CAP PO SCH (21:00)
[2021-11-15] MEDS: GABAPENTIN 300 MG CAP PO SCH (22:20)
[2021-11-15] MEDS: LATANOPROST 0.005% OP SOLN 2.5 ML BTL OP SCH (22:20)
[2021-11-15] MEDS: FAMOTIDINE 20 MG TAB PO SCH (22:20)
[2021-11-15] MEDS: MONTELUKAST SODIUM 10 MG TABLET PO SCH (22:21)
[2021-11-15] MEDS: traZODone HCL 50 MG TAB PO SCH (22:23)
[2021-11-16] MEDS: PIPERACILLIN/TAZOBACTAM 3.375 GM in DEXTROSE 5% 100 ML IV SCH ×3 (00:34→17:29)
[2021-11-16] MEDS: MoRPHine SULFATE 2 MG/ML CARP IV PRN (03:37)
[2021-11-16] MEDS: LEVOTHYROXINE SODIUM 75 MCG TABLET PO SCH (05:37)
[2021-11-16] MEDS: DOCUSATE SODIUM 100 MG CAP PO SCH (08:08)
[2021-11-16] MEDS: DULoxetine HCL 60 MG CAP PO SCH (08:08)
[2021-11-16] MEDS: FLUTICASONE/VILANTEROL 200/25MCG 14 PUFFS/INHALER INH SCH (08:08)
[2021-11-16] MEDS: FUROSEMIDE 20 MG TAB PO SCH (08:08)
[2021-11-16] MEDS: CHOLECALCIFEROL 1,000 UNITS 25 MCG TAB PO SCH (08:08)
[2021-11-16] MEDS: MAGNESIUM OXIDE 400 MG TAB PO SCH (08:08)
[2021-11-16] MEDS: RIVAROXABAN 15 MG TAB PO SCH ×2 (08:08→20:01)
[2021-11-16] MEDS: predniSONE 2.5 MG TAB PO SCH (08:09)
[2021-11-16] MEDS: ZINC SULFATE 220 MG CAPSULE PO SCH (08:09)
[2021-11-16] MEDS: DORZOLAMIDE/TIMOLOL 22.3/6.8MG/ML 10 ML BTL OPB SCH ×2 (08:09→19:59)
[2021-11-16] MEDS: INSULIN ASPART PER UNIT SC SCH ×4 (08:09→20:02)
[2021-11-16] MEDS: PANTOprazole 40 MG TAB PO SCH (08:09)
[2021-11-16] MEDS: traMADol HCL 50 MG TABLET PO SCH ×2 (08:09→20:00)
[2021-11-16] MEDS: TOPIRAMATE 100 MG TAB PO SCH ×2 (08:09→20:01)
[2021-11-16] MEDS: SPIRONOLACTONE 12.5 MG TAB PO SCH (08:09)
[2021-11-16] MEDS: MULTIVITAMIN TAB PO SCH (08:09)
[2021-11-16] MEDS ORDERED: CLOPIDOGREL BISULFATE 75 MG TAB PO SCH (09:00)
[2021-11-16 09:12] LABS: Hematocrit (blood only) 36.7 % (37-47); Hemoglobin 12.4 g/dL (12.0-16.0); Mean Corpuscular Hemoglobin 31.6 pg (25-34); Mean Corpuscular Hgb Conc 33.8 g/dL (32-36); Mean Corpuscular Volume 93.6 fL (80-100); Mean Platelet Volume 9.4 fL (7.4-10.4); Platelet Count 325 K/uL (130-400); RDW Coefficient of Variation 14.9 % (11.5-14.5); RDW Standard Deviation 50.1 fL (36.4-46.3); Red Blood Count 3.92 M/uL (4.2-5.4); White Blood Count 7.15 K/uL (4.8-10.8)
--- NOTE | 2021-11-16 09:20 | XRay Report ---
XR chest 2V PA/lateral HISTORY: 81 years-old Female Hypoxia; rule out pulm edema vs. pneumonia. Acute hypoxia COMPARISON: 11/10/2021 TECHNIQUE: Portable AP view of the chest FINDINGS: The heart is upper limits of normal in size. Mild blunting of the lateral costophrenic angles. Minima l subsegmental bibasilar densities. There is no pneumothorax, large pleural effusion, overt pulmonary edema or airspace consolidation. The bones of the chest appear grossly intact. Surgical clips projec t over the upper abdomen. IMPRESSION: Trace pleural effusions with minimal subsegmental bibasilar atelectasis. ACT 112: Negative or not required by law. The above report was generated using voice recognition software. It may contain grammatical, syntax o r spelling errors. Electronically signed by: Abilio Rick M.D. 11/16/2021 9:19 AM
[2021-11-16 09:37] LABS: Albumin Globulin Ratio 1.2 (0.9-2); Albumin Level 3.5 gm/dl (3.4-5.0); Bilirubin,Total 0.6 mg/dl (0.2-1.0); Calcium 9.1 mg/dl (8.5-10.1); Creatinine Clr Calc Pharmacy 40.9 ml/min; Est GFR (African American) 72.4 ml/min; Est GFR (Non-African American) 62.5 ml/min; Globulin 2.9 gm/dl (2.5-4.0); Potassium 3.5 mmol/L (3.5-5.1); Total Protein 6.4 gm/dl (6.0-8.3)
[2021-11-16 09:46] LABS: Ferritin 60.6 ng/ml (8-388)
--- NOTE | 2021-11-16 11:15 | Hospitalist Progress Note ---
Date of Service November 16, 2021 Assessment & Plan (1) GI bleed: Plan: S/p ERCP on 11/08, required sphincterotomy. Presented to hospital with bleeding, repeat ERCP 11/11 with CBD stent placed. She has had resolution of bleeding, H/H levels normalizing. Will require follow up with GI for removal of CBD stent. She remains on Zosyn IV for coverage of recent bile duct intervention; recommend completing 5-7 day course of abx. (2) Pulmonary embolism: Plan: CT AP 11/10 showed incidental subsegmental PE of the left lower lobe. 2D ECHO with evidence of increased right ventricular pressure, patient hemody namically stable On Xarelto 15 mg for loading dose, will eventually convert to 20 mg daily. (3) Hypotension: Plan: Hypotension noted, starting on 11/14. Patient is on chronic Prednisone 2.5 mg daily at home. AM Cortisol level this morning was 2.27, ACTH pending. Likely has adrenal insufficiency, started Hydrocortisone 50 mg IV q8hr for stress dose steroids. Will taper to home dose of Prednisone pending improvement in BP. Will hold Spironolactone and Lasix due to hypotension. (4) Hypoxia: Plan: Borderline hypoxia, with O2 sat decreasing to upper 80's. CXR this morning with trace bilat pleural effusions. Continue to monitor, O2 via NC for O2 sat <88%. (5) Anemia: Plan: Normocytic anemia, improved after resolution of acute bleeding. Hgb level increased to 12.4; monitor daily. (6) Lymphadenopathy: Plan: CT AP 11/10/21 with non specific mildly enlarged right iliac chain lymph node, new from prior study. Will need to repeat imaging, recommend CT chest as well, in the future for follow up. (7) Elevated troponin: Plan: Most likely strain from pulmonary embolism Cardio consulted, appreciate input. He had negative stress test 08/2020. No evidence of acute ischemia. (8) Agitation: Plan: Improved. (9) Polymyalgia rheumatica: Plan: On Prednisone, currently on hold and receiving stress dose steroids. (10) Fibromyalgia: Plan: On surveillance. Continue Cymbalta, Neurontin, Topamax, Tramadol as prescribed. (11) Asthma: Plan: On surveillance. (12) GERD (gastroesophageal reflux disease): Plan: PPI daily. (13) Hypothyroid: Plan: Continue Synthroid 75 mcg daily. TSH 3.27 in . (14) Osteoporosis, senile: Plan: Continue weekly Fosamax and Vit D. Plan: Discharge to home with home health services pending improvement in hypotension. DVT ppx: Robynto Full code Admission and Anticipated Discharge Date Admission Date: November 11, 2021 Supervising Physician Co-Signing Physician Notes Attending Attestation: Chart reviewed in detail, care plan d/w PA Charisma Franks. I agree w/ the matute components of her documentation. Jesse Davila MD Subjective Mrs. Alvarenga has had resolution of rectal bleeding. Hgb improved to 12.4 (prev 10.5). Denies severe abd pain. She does have generalized pain related to fibromyalgia along with fatigue. BP decreased this morning and over the last 24 hours, most recently 88/48. She takes chronic Prednisone therapy 2.5 mg daily; AM Cortisol level was 2.27, ACTH pending. Patient likely has adrenal insufficiency in setting of chronic steroid use. She received Hydrocortisone 50 mg IV at 11 AM. O2 Sat 87% this morning, CXR with trace pleural effusions but otherwise negative. She denies significant SOB. Review of Systems Review of Systems: Constitutional: Fatigue;Negative for weight loss, night sweats, or fever Eyes: Negative for event change of vision ENT: Negative for epistaxis, nasal discharge, sore throat, or deafness Cardiovascular: Negative for anginal type chest pain, palpitations, dizziness, diaphoresis Respiratory: Negative for new shortness of breath,hemoptysis, or purulent cough Gastrointestinal: Negative for diarrhea, hematemesis, melena, nausea, vomiting, or dyspepsia Integumentary (skin): Negative for rash or jaundice discoloration Genitourinary: Negative for urinary frequency, hematuria, or dysuria Neurological: Negative for weakness, seizure activity, headache, or dizziness Lymphatic/Hematologic: Negative for petechiae, bleeding or new adenopathy Musculoskeletal: Generalized pain Allergic/Immunologic: Negative for unusual rash or pruritis Physical Exam Physical Exam: Constitutional: Very pleasant elderly female, no acute distress Respiratory: Lung sounds were generally clear bilaterally. Cardiovascular: Heart was RRR without significant murmur, gallops or rubs. Gastrointestinal: No palpable hepatic or splenomegaly. The abdomen was soft with normal bowel sounds. Lymphatic system: There was no palpable peripheral lymphadenopathy. Musculoskeletal System: The musculoskeletal system seemed concordant with age. Skin: The skin was negative for jaundice. Extremities: Negative for edema or erythema Results & Data Results & Data ([facility]) Vital Signs (Past 12 Hours) Vital Signs Temp Pulse Pulse Resp BP BP Pulse Ox 11/16/21 10:58 88/48 L 11/16/21 10:39 36.7 C 61 18 84/52 L 94 11/16/21 07:32 68 11/16/21 07:29 36.5 C 76 18 90/59 L 87 L 11/16/21 04:00 36.7 C 71 18 97/62 L 91 Laboratory Results 11/16/21 11/16/21 11/16/21 Range/Units 11:37 08:54 08:54 WBC (4.8-10.8) K/uL RBC (4.2-5.4) M/uL Hgb (12.0-16.0) g/dL Hct (37-47) % MCV (80-100) fL MCH (25-34) pg MCHC (32-36) g/dL RDW Std Deviation (36.4-46.3) fL RDW Coeff of Sudha (11.5-14.5) % Plt Count (130-400) K/uL MPV (7.4-10.4) fL Sodium 137 (136-145) mmol/L Potassium 3.5 (3.5-5.1) mmol/L Chloride 104 (98-107) mmol/L Carbon Dioxide 27 (21-32) mmol/L Anion Gap 6 (3-11) BUN 7 (6-23) mg/dl Creatinine 0.87 (0.6-1.2) mg/dl Est Cr Clr Drug Dosing 40.9 ml/min Est GFR ( Amer) 72.4 ml/min Est GFR (Non-Af Amer) 62.5 ml/min BUN/Creatinine Ratio 8.0 L (10-20) Glucose 128 H (70-99(Fasting)) mg/dl POC Glucose 123 H (70-99) mg/dl Calcium 9.1 (8.5-10.1) mg/dl Iron 48 (35-150) mcg/dl Ferritin 60.6 (8-388) ng/ml Total Bilirubin 0.6 (0.2-1.0) mg/dl AST 24 (13-39) U/L ALT 51 (7-52) U/L Alkaline Phosphatase 100 (34-104) U/L Total Protein 6.4 (6.0-8.3) gm/dl Albumin 3.5 (3.4-5.0) gm/dl Globulin 2.9 (2.5-4.0) gm/dl Albumin/Globulin Ratio 1.2 (0.9-2) Cortisol AM Sample (6.2-22.6) mcg/dl ACTH Pending 11/16/21 11/16/21 11/16/21 Range/Units 08:54 08:38 07:37 WBC 7.15 (4.8-10.8) K/uL RBC 3.92 L (4.2-5.4) M/uL Hgb 12.4 (12.0-16.0) g/dL Hct 36.7 L (37-47) % MCV 93.6 (80-100) fL MCH 31.6 (25-34) pg MCHC 33.8 (32-36) g/dL RDW Std Deviation 50.1 H (36.4-46.3) fL RDW Coeff of Sudha 14.9 H (11.5-14.5) % Plt Count 325 (130-400) K/uL MPV 9.4 (7.4-10.4) fL Sodium (136-145) mmol/L Potassium (3.5-5.1) mmol/L Chloride (98-107) mmol/L Carbon Dioxide (21-32) mmol/L Anion Gap (3-11) BUN (6-23) mg/dl Creatinine (0.6-1.2) mg/dl Est Cr Clr Drug Dosing ml/min Est GFR ( Amer) ml/min Est GFR (Non-Af Amer) ml/min BUN/Creatinine Ratio (10-20) Glucose (70-99(Fasting)) mg/dl POC Glucose 105 H (70-99) mg/dl Calcium (8.5-10.1) mg/dl Iron (35-150) mcg/dl Ferritin (8-388) ng/ml Total Bilirubin (0.2-1.0) mg/dl AST (13-39) U/L ALT (7-52) U/L Alkaline Phosphatase (34-104) U/L Total Protein (6.0-8.3) gm/dl Albumin (3.4-5.0) gm/dl Globulin (2.5-4.0) gm/dl Albumin/Globulin Ratio (0.9-2) Cortisol AM Sample 2.27 L (6.2-22.6) mcg/dl ACTH 11/15/21 11/15/21 Range/Units 20:31 16:32 WBC (4.8-10.8) K/uL RBC (4.2-5.4) M/uL Hgb (12.0-16.0) g/dL Hct (37-47) % MCV (80-100) fL MCH (25-34) pg MCHC (32-36) g/dL RDW Std Deviation (36.4-46.3) fL RDW Coeff of Sudha (11.5-14.5) % Plt Count (130-400) K/uL MPV (7.4-10.4) fL Sodium (136-145) mmol/L Potassium (3.5-5.1) mmol/L Chloride (98-107) mmol/L Carbon Dioxide (21-32) mmol/L Anion Gap (3-11) BUN (6-23) mg/dl Creatinine (0.6-1.2) mg/dl Est Cr Clr Drug Dosing ml/min Est GFR ( Amer) ml/min Est GFR (Non-Af Amer) ml/min BUN/Creatinine Ratio (10-20) Glucose (70-99(Fasting)) mg/dl POC Glucose 146 H 116 H (70-99) mg/dl Calcium (8.5-10.1) mg/dl Iron (35-150) mcg/dl Ferritin (8-388) ng/ml Total Bilirubin (0.2-1.0) mg/dl AST (13-39) U/L ALT (7-52) U/L Alkaline Phosphatase (34-104) U/L Total Protein (6.0-8.3) gm/dl Albumin (3.4-5.0) gm/dl Globulin (2.5-4.0) gm/dl Albumin/Globulin Ratio (0.9-2) Cortisol AM Sample (6.2-22.6) mcg/dl ACTH PG Care Time/CCT Total # of Minutes Spent Total Time Spent with Patient: Total time spent is greater than 50% in coordination of care (as documented) at patient's floor/unit and/or counseling patient: Coding Level of Care Code 34789 Subseq Hosp Care Lvl 2 Diagnoses GI bleed K92.2 Pulmonary embolism I26.99 Elevated troponin R77.8 Agitation R45.1 Polymyalgia rheumatica M35.3 Fibromyalgia M79.7 Asthma J45.20 Asthma complication type: uncomplicated Asthma persistence: intermittent Asthma severity: mild GERD (gastroesophageal reflux disease) K21.9 Esophagitis presence: esophagitis presence not specified Hypothyroid E03.9 Hypotension I95.9 Hypoxia R09.02 Anemia D64.9 Lymphadenopathy R59.1 Osteoporosis, senile M81.0 (1) GERD (gastroesophageal reflux disease) Esophagitis presence: esophagitis presence not specified Qualified Code(s): K21.9 - Gastro-esophageal reflux disease without esophagitis (2) Asthma Asthma complication type: uncomplicated Asthma persistence: intermittent Asthma severity: mild Qualified Code(s): J45.20 - Mild intermittent asthma, uncomplicated
[2021-11-16] MEDS: HYDROCORTISONE SOD 50 MG in SYRINGE 0 ML IV SCH ×2 (11:36→19:40)
[2021-11-16] MEDS ORDERED: Nursing to Pharmacy Communication SCH (11:45)
[2021-11-16] MEDS ORDERED: SODIUM CHLORIDE 0.9% 1000ML 250 ML IV ONE (15:04)
[2021-11-16] MEDS: LATANOPROST 0.005% OP SOLN 2.5 ML BTL OP SCH (20:00)
[2021-11-16] MEDS: traZODone HCL 50 MG TAB PO SCH (20:00)
[2021-11-16] MEDS: MONTELUKAST SODIUM 10 MG TABLET PO SCH (20:01)
[2021-11-16] MEDS: FAMOTIDINE 20 MG TAB PO SCH (20:01)
[2021-11-16] MEDS: GABAPENTIN 300 MG CAP PO SCH (20:02)
[2021-11-17] MEDS: HYDROCORTISONE SOD 50 MG in SYRINGE 0 ML IV SCH ×3 (02:38→20:13)
[2021-11-17] MEDS: LEVOTHYROXINE SODIUM 75 MCG TABLET PO SCH (06:14)
[2021-11-17 07:06] LABS: Hematocrit (blood only) 31.5 % (37-47); Hemoglobin 10.8 g/dL (12.0-16.0); Mean Corpuscular Hemoglobin 31.8 pg (25-34); Mean Corpuscular Hgb Conc 34.3 g/dL (32-36); Mean Corpuscular Volume 92.6 fL (80-100); Platelet Count 313 K/uL (130-400); RDW Coefficient of Variation 14.6 % (11.5-14.5); RDW Standard Deviation 49.2 fL (36.4-46.3); White Blood Count 6.93 K/uL (4.8-10.8)
[2021-11-17 07:07] LABS: Basophils # (auto) 0.01 K/uL (0-0.2); Basophils % (auto) 0.1 %; Immature Granulocytes # (auto) 0.03 K/uL (0.00-0.02); Immature Granulocytes % (auto) 0.4 %; Lymphocytes # (auto) 1.07 K/uL (1.2-3.4); Lymphocytes % (auto) 15.4 %; Mean Platelet Volume 9.5 fL (7.4-10.4); Monocytes # (auto) 0.23 K/uL (0.11-0.59); Monocytes % (auto) 3.3 %; Neutrophils # (auto) 5.59 K/uL (1.4-6.5); Neutrophils % (auto) 80.8 %
[2021-11-17 07:34] LABS: Albumin Globulin Ratio 1.3 (0.9-2); BUN Creatinine Ratio 15.2 (10-20); Bilirubin,Total 0.4 mg/dl (0.2-1.0); Calcium 8.4 mg/dl (8.5-10.1); Creatinine Clr Calc Pharmacy 52.3 ml/min; Est GFR (Non-African American) 82.8 ml/min; Globulin 2.4 gm/dl (2.5-4.0); Potassium 3.2 mmol/L (3.5-5.1); Total Protein 5.4 gm/dl (6.0-8.3)
[2021-11-17] MEDS: INSULIN ASPART PER UNIT SC SCH ×4 (08:13→20:19)
[2021-11-17] MEDS: traMADol HCL 50 MG TABLET PO SCH ×2 (08:15→20:13)
[2021-11-17] MEDS: DORZOLAMIDE/TIMOLOL 22.3/6.8MG/ML 10 ML BTL OPB SCH ×2 (08:16→20:16)
[2021-11-17] MEDS: FLUTICASONE/VILANTEROL 200/25MCG 14 PUFFS/INHALER INH SCH (08:16)
[2021-11-17] MEDS: PANTOprazole 40 MG TAB PO SCH (09:04)
[2021-11-17] MEDS: CHOLECALCIFEROL 1,000 UNITS 25 MCG TAB PO SCH (09:04)
[2021-11-17] MEDS: TOPIRAMATE 100 MG TAB PO SCH ×2 (09:04→20:21)
[2021-11-17] MEDS: ZINC SULFATE 220 MG CAPSULE PO SCH (09:04)
[2021-11-17] MEDS: RIVAROXABAN 15 MG TAB PO SCH ×2 (09:04→20:14)
[2021-11-17] MEDS: MULTIVITAMIN TAB PO SCH (09:04)
[2021-11-17] MEDS: DULoxetine HCL 60 MG CAP PO SCH (09:05)
[2021-11-17] MEDS: MAGNESIUM OXIDE 400 MG TAB PO SCH (09:05)
[2021-11-17] MEDS: DOCUSATE SODIUM 100 MG CAP PO SCH (09:07)
[2021-11-17] MEDS: traZODone HCL 50 MG TAB PO SCH (20:13)
[2021-11-17] MEDS: MONTELUKAST SODIUM 10 MG TABLET PO SCH (20:15)
[2021-11-17] MEDS: GABAPENTIN 300 MG CAP PO SCH (20:16)
[2021-11-17] MEDS: FAMOTIDINE 20 MG TAB PO SCH (20:16)
[2021-11-17] MEDS: LATANOPROST 0.005% OP SOLN 2.5 ML BTL OP SCH (20:17)
[2021-11-18] MEDS: HYDROCORTISONE SOD 50 MG in SYRINGE 0 ML IV SCH ×2 (03:56→11:23)
[2021-11-18] MEDS: LEVOTHYROXINE SODIUM 75 MCG TABLET PO SCH (05:58)
[2021-11-18 08:13] LABS: Hematocrit (blood only) 30.9 % (37-47); Hemoglobin 10.5 g/dL (12.0-16.0); Immature Granulocytes # (auto) 0.04 K/uL (0.00-0.02); Immature Granulocytes % (auto) 0.5 %; Lymphocytes # (auto) 1.32 K/uL (1.2-3.4); Lymphocytes % (auto) 15.8 %; Mean Corpuscular Hemoglobin 31.6 pg (25-34); Mean Corpuscular Volume 93.1 fL (80-100); Mean Platelet Volume 9.3 fL (7.4-10.4); Monocytes # (auto) 0.34 K/uL (0.11-0.59); Monocytes % (auto) 4.1 %; Neutrophils # (auto) 6.67 K/uL (1.4-6.5); Neutrophils % (auto) 79.6 %; Platelet Count 347 K/uL (130-400); RDW Coefficient of Variation 14.8 % (11.5-14.5); RDW Standard Deviation 49.8 fL (36.4-46.3); Red Blood Count 3.32 M/uL (4.2-5.4); White Blood Count 8.37 K/uL (4.8-10.8)
[2021-11-18] MEDS: INSULIN ASPART PER UNIT SC SCH ×2 (08:27→12:34)
[2021-11-18] MEDS: TOPIRAMATE 100 MG TAB PO SCH (08:28)
[2021-11-18] MEDS: RIVAROXABAN 15 MG TAB PO SCH (08:28)
[2021-11-18] MEDS: DULoxetine HCL 60 MG CAP PO SCH (08:28)
[2021-11-18] MEDS: CHOLECALCIFEROL 1,000 UNITS 25 MCG TAB PO SCH (08:28)
[2021-11-18] MEDS: MULTIVITAMIN TAB PO SCH (08:29)
[2021-11-18] MEDS: ZINC SULFATE 220 MG CAPSULE PO SCH (08:29)
[2021-11-18] MEDS: MAGNESIUM OXIDE 400 MG TAB PO SCH (08:29)
[2021-11-18] MEDS: FLUTICASONE/VILANTEROL 200/25MCG 14 PUFFS/INHALER INH SCH (08:29)
[2021-11-18] MEDS: PANTOprazole 40 MG TAB PO SCH (08:29)
[2021-11-18] MEDS: traMADol HCL 50 MG TABLET PO SCH (08:35)
[2021-11-18] MEDS: DORZOLAMIDE/TIMOLOL 22.3/6.8MG/ML 10 ML BTL OPB SCH (08:52)
[2021-11-18] MEDS: DOCUSATE SODIUM 100 MG CAP PO SCH (09:02)
[2021-11-18 09:06] LABS: BUN Creatinine Ratio 16.5 (10-20); Calcium 8.8 mg/dl (8.5-10.1); Creatinine Clr Calc Pharmacy 40.6 ml/min; Est GFR (African American) 74.5 ml/min; Est GFR (Non-African American) 64.3 ml/min; Potassium 3.3 mmol/L (3.5-5.1)
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
[2021-11-20] MEDS ORDERED: ALENDRONATE SODIUM 70 MG TAB PO SCH (07:30)
== END 2021-11-18 16:22 | disposition home health service (06) | DRG 919 ==
LOC: ED 19:45 → 2S 11-11 00:03 → SUATTDRO 11-11 00:03 → 2S 11-11 01:01 → 2W 11-15 13:53
DX: R79.89 Other specified abnormal findings of blood chemistry; Z88.1 Allergy status to other antibiotic agents; M35.3 Polymyalgia rheumatica; Z88.8 Allergy status to other drugs, medicaments and biological substances; Z90.49 Acquired absence of other specified parts of digestive tract; K80.50 Calculus of bile duct without cholangitis or cholecystitis without obstruction; Z79.51 Long term (current) use of inhaled steroids; Z88.6 Allergy status to analgesic agent; Y83.8 Other surgical procedures as the cause of abnormal reaction of the patient, or of later complication, without mention of misadventure at the time of the procedure; M81.0 Age-related osteoporosis without current pathological fracture; K91.840 Postprocedural hemorrhage of a digestive system organ or structure following a digestive system procedure; M79.7 Fibromyalgia; J45.909 Unspecified asthma, uncomplicated; I26.93 Single subsegmental thrombotic pulmonary embolism without acute cor pulmonale; K21.9 Gastro-esophageal reflux disease without esophagitis; K29.70 Gastritis, unspecified, without bleeding; Z83.3 Family history of diabetes mellitus; Z79.899 Other long term (current) drug therapy; Y92.019 Unspecified place in single-family (private) house as the place of occurrence of the external cause; Z88.5 Allergy status to narcotic agent; I95.9 Hypotension, unspecified; E03.9 Hypothyroidism, unspecified; K31.7 Polyp of stomach and duodenum; Z87.891 Personal history of nicotine dependence; K83.1 Obstruction of bile duct; K92.1 Melena; R74.01 Elevation of levels of liver transaminase levels; Z79.890 Hormone replacement therapy

== ENCOUNTER 2022-02-07 10:46 | Inpatient (IN) ==
--- NOTE | 2022-02-07 11:11 | Emergency Department Note ---
Impression & Plan Hypoxia, COVID-19, Fall ED Provider Note NAME: LENA PAIZ AGE: 81 SEX: F : 1940 ARRIVES VIA: Walk-In INFORMANT: Patient, ED PROVIDER(S): Norm Sy MD Chief Complaint: Weakness and fatigue, cough HPI: Patient presents with her granddaughter due to the above symptoms. The patient has felt increasingly weak and fatigued and slightly off balance. The patient did fall out of bed to the floor last evening. Patient does have recent COVID exposures the patient's granddaughter and children have had COVID with the patient was unable to self test at home. Patient has had nonproductive cough but does have a known history of reactive airway disease. The patient is on blood thinning medication. The patient denies any current head neck pain numbness tingling or focal weakness. Patient is vaccinated for COVID-19. Patient has no prior history of smoking. Patient has had mild decreased appet ite. ROS: See HPI for pertinent positives and negatives. A total of 10 systems were reviewed and otherwise negative. Past medical history: See below Surgical history: See below Social history: See below Physical Exam: GENERAL: NAD, wearing a mask, non-toxic. EYE EXAM: Normal conjunctiva. PERRL, no anisocoria and EOM's grossly intact w/o pain. Face: 2 small cuts just right of the upper lip that are not gaping and currently hemostatic, no obvious intraoral injury NECK: Supple, no nuchal rigidity, no adenopathy, non-tender. No signs of meningismus. FROM of the neck with good chin to chest and neck extension. No stridor. LUNGS: Scant wheezes throughout. Normal chest wall mechanics. HEART: NSR, no MRG. ABDOMEN: Abdomen soft, non-tender, normo-active bowel sounds, no masses, no rebound or guarding. BACK: No CVA TTP. SKIN: No rashes and no bruising. UPPER EXTREMITIES: Upper extremities are grossly normal. LOWER EXTREMITIES: Grossly normal, no edema. Negative Homans' sign bilaterally. NEURO EXAM: A&O x3, cranial nerves II-XII grossly intact, normal speech, moves all 4 extremities. Differential diagnoses: Infection, dehydration, metabolic abnormality, hypo/hyperglycemia, electrolyte disturbance, anemia, hypoxia, cardiac sources, intracerebral event, toxicologic, neurologic, as well as other pathologies. Course: Patient was seen and evaluated the bedside. Full history physical exam was performed. Imaging Studies: See Below Cardiac monitoring: An order was placed for continuous cardiac monitoring. The monitor shows a rate of 72 with sinus rhythm. MDM: Patient presented due to concern for weakness fatigue and cough. Blood work is obtained along with CT head and cervical spine. The patient has a normal white count H&H and platelet count. Patient's kidney function does show a creatinine 1.25 which is slightly worse than the patient's baseline. The patient did r eceive IV fluids. Patient did require recollect some of her electrolytes had hemolyzed. Patient did feel better after neb treatment. The patient's chest film did not show any acute findings and the patient had a negative CT of the head. CT cervical spine shows degenerative changes. No acute fracture or subluxation. Patient is COVID-positive. Pro-Rory is not elevated. Patient did have slight desaturation to 89% was placed on 2 L nasal cannula. Dexamethasone 6 mg ordered. Patient also has associated hyponatremia at 129. Also mild hypokalemia. Patient was ordered additional IV fluids. I did speak the on-call hospitalist Dr. Villatoro and the patient was admitted to the medicine service. Critical Care: I have personally spent 35 minutes of critical care time in direct management of this patient. This includes bedside care, interpretation of diagnostic studies, and testing, discussion with consultants, patient, and family members, and other require inpatient management activities. This 35 minutes is in excess of all separately billable procedures. Past Med/Surg History Medical History Anxiety Aortic valve insufficiency Moderate per 07/[address] 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, reports no residual deficits, no issues since Surgical History H/O sinus surgery H/O tubal ligation History of cholecystectomy History of esophagogastroduodenoscopy (EGD) (~2011) History of hysterectomy with unilateral oopherectomy- 1978 History of lumbar laminectomy 2000 History of orthopedic surgery rhizotomy- pt unsure about this S/P cataract surgery S/P ERCP Family History Mother Diabetes Ovarian cancer Hypertension Kidney disease Father Diabetes Cardiac disorder Hypertension Stroke Alcohol abuse Other specified hearing loss, bilateral Aunt Breast cancer Brother Cancer Alcohol abuse Daughter , peritonitis Alcohol abuse Anxiety Dementia Family/Other Depression Anxiety Other No significant family history Denies family history of Colorectal cancer Social History Smoking Status: Never smoker Second Hand Exposure: No; Hx Alcohol Use: No Hx Substance Use: No Preferred Language: Macedonian Communication Ability: Effective Visual Impairment: Limited Hearing Ability: Normal Bumboater Required: No Beliefs That Will Affect Care: None marital status: / Current Living Situation: Family Current Living Situation Comment: GRAND DAUGHTER AND SON WILL HELP current occupational status: retired How many Children do You have: 1 Feels Safe at Home: Yes Safety Concerns: Feels Safe At This Time Childhood Exposure to Second-Hand Smoke: No caffeine: No during the past year weight has: decreased > 10 lbs Dental Care, Regularly: Yes Physical Activity Frequency: 1-2 Times per Week Seatbelt Use: always Sunscreen Use: Yes Assistive Devices: None Allergies Allergies Allergy/AdvReac Type Severity Reaction Status Date / Time aspirin Allergy Intermediate GI UPSET Verified 02/07/22 15:14 codeine Allergy Intermediate GI UPSET Verified 02/07/22 15:14 erythromycin base Allergy Intermediate GI UPSET Verified 02/07/22 15:14 Home Meds Home Medications Medication Instructions Recorded Confirmed multivitamin 1 tab PO QAM 06/10/18 02/07/22 trazodone 100 mg tablet 1 tab PO QPM 06/10/18 02/07/22 tramadol 50 mg tablet 50 mg PO TID 02/13/19 02/07/22 latanoprost 0.005 % eye drops 1 drops ophthalmic (eye) QPM 03/03/19 02/07/22 alendronate 70 mg tablet (Fosamax) 70 mg PO WK 01/17/20 02/07/22 dorzolamide 22.3 mg-timolol 6.8 1 drp OPB BID 10/07/20 02/07/22 mg/mL eye drops zinc sulfate 25 mg zinc (110 mg) 25 mg PO DAILY 12/11/20 02/07/22 tablet (Orazinc) duloxetine 60 mg capsule,delayed 120 mg PO QAM 01/31/21 02/07/22 release (Cymbalta) artificial tears(hypromellose) 0.3 1 drp ophthalmic (eye) TID 09/18/21 02/07/22 % eye gel (Systane Gel) fexofenadine 60 mg tablet 180 mg PO QAM 09/18/21 02/07/22 furosemide 20 mg tablet 20 mg PO QAM 09/18/21 02/07/22 peg 400-propylene glycol 0.4 %-0.3 1 drp ophthalmic (eye) TID 09/18/21 02/07/22 % eye drops (Systane Ultra) docusate sodium 100 mg capsule 100 mg PO QAM 09/23/21 02/07/22 magnesium 250 mg tablet 250 mg PO QAM 09/23/21 02/07/22 cholecalciferol (vitamin D3) 25 25 mcg PO DAILY 11/10/21 02/07/22 mcg (1,000 unit) tablet (Vitamin D3) famotidine 20 mg tablet 20 mg PO HS 02/07/22 02/07/22 levothyroxine 75 mcg tablet 75 mcg PO DAILYBB 02/07/22 02/07/22 pantoprazole 40 mg tablet,delayed 40 mg PO BID 02/07/22 02/07/22 release rivaroxaban 20 mg tablet (Xarelto) 20 mg PO QPM 02/07/22 02/07/22 Previous Rx's Medication Instructions Recorded albuterol sulfate 90 mcg/actuation 2 puff inhalation Q6H PRN 03/11/21 aerosol inhaler shortness of breath or wheezing #3 Inhalers budesonide-formoterol HFA 160 2 puff inhalation BID #3 Inhalers 06/25/21 mcg-4.5 mcg/actuation aerosol inhaler (Symbicort) prednisone 2.5 mg tablet 2.5 mg PO DAILY #90 tabs 07/05/22 montelukast 10 mg tablet 10 mg PO HS #90 tabs 12/09/21 gabapentin 300 mg capsule 300 mg PO HS 90 days #90 caps 12/16/21 topiramate 50 mg tablet 100 mg PO BID 90 days #360 tabs 01/24/22 Results & Data (ED) Vital Signs Vital Signs - 24 hr 02/07/22 10:58 02/07/22 12:05 02/07/22 14:00 Temperature 36.8 C Temperature Source Temporal Artery Scan Pulse Rate 63 Pulse Rate [Forehead] 75 Pulse Rhythm [Forehead] Regular Pulse Strength [Forehead] Normal Respiratory Rate 18 18 Respiratory Effort / Characteristics Non-Labored Respiratory Depth Normal Respiratory Pattern Regular Blood Pressure 112/54 L Blood Pressure [Left Arm] 114/59 L 86/51 L Blood Pressure Mean 73 Blood Pressure Mean [Left Arm] 77 62 Blood Pressure Position [Left Arm] Lying Lying Pulse Oximetry 100 89 L Oxygen Delivery Method Room Air Room Air Sepsis Recent Fever Within 48 Hours No Sepsis New/Unexplained Change in Mental Status No Sepsis Action Taken by Nursing No Action Required Home Medications Current Medication List: was personally reviewed by me Laboratory Data Attestation: I reviewed the patient's lab results. Result diagrams: 02/07/22 12:10 02/07/22 13:09 Lab Results 02/07/22 02/07/22 02/07/22 Range/Units 12:10 12:10 12:10 WBC 6.42 (4.8-10.8) K/ul RBC 4.95 (3.93-5.22) M/uL Hgb 14.5 (12.0-16.0) g/dl Hct 43.2 (34.1-44.9) % MCV 87.3 (80.0-100.0) fL MCH 29.3 (25.0-34.0) pg MCHC 33.6 (32.0-36.0) g/dL RDW Std Deviation 46.5 H (36.4-46.3) fL RDW Coeff of Sudha 14.6 H (11.5-14.5) % Plt Count 231 (130-400) K/uL MPV 10.1 (9.4-12.3) fL Immature Gran % (Auto) 0.5 % Neut % (Auto) 52.8 % Lymph % (Auto) 28.5 % Pinal % (Auto) 17.1 % Eos % (Auto) 0.5 % Baso % (Auto) 0.6 % Neut # (Auto) 3.39 (1.4-6.5) K/uL Lymph # (Auto) 1.83 (1.2-3.4) K/uL Pinal # (Auto) 1.10 H (0.24-0.82) K/uL Eos # (Auto) 0.03 (0-0.50) K/uL Baso # (Auto) 0.04 (0-0.2) K/uL Immature Gran # (Auto) 0.03 H (0.00-0.02) K/uL PT Cancelled INR Cancelled Sodium TNP Potassium TNP Chloride 95 L (98-107) mmol/L Carbon Dioxide 25 (21-32) mmol/L Anion Gap TNP BUN 20 (6-23) mg/dl Creatinine 1.25 H (0.6-1.2) mg/dl Est Cr Clr Drug Dosing 25.5 ml/min Est GFR ( Amer) 46.7 ml/min Est GFR (Non-Af Amer) 40.3 ml/min BUN/Creatinine Ratio 16.0 (10-20) Glucose 85 (70-99(Fasting)) mg/dl Calcium 8.5 (8.5-10.1) mg/dl Magnesium TNP Total Bilirubin 0.5 (0.2-1.0) mg/dl AST TNP ALT 13 (7-52) U/L Alkaline Phosphatase 52 (34-104) U/L Total Protein 6.6 (6.0-8.3) gm/dl Albumin 3.7 (3.4-5.0) gm/dl Globulin 2.9 (2.5-4.0) gm/dl Albumin/Globulin Ratio 1.3 (0.9-2) Procalcitonin TSH (0.300-4.500) uIu/ml SARS-CoV-2, RNA, NAAT (NEGATIVE) 02/07/22 02/07/22 02/07/22 Range/Units 12:10 12:10 12:25 WBC (4.8-10.8) K/ul RBC (3.93-5.22) M/uL Hgb (12.0-16.0) g/dl Hct (34.1-44.9) % MCV (80.0-100.0) fL MCH (25.0-34.0) pg MCHC (32.0-36.0) g/dL RDW Std Deviation (36.4-46.3) fL RDW Coeff of Sudha (11.5-14.5) % Plt Count (130-400) K/uL MPV (9.4-12.3) fL Immature Gran % (Auto) % Neut % (Auto) % Lymph % (Auto) % Pinal % (Auto) % Eos % (Auto) % Baso % (Auto) % Neut # (Auto) (1.4-6.5) K/uL Lymph # (Auto) (1.2-3.4) K/uL Pinal # (Auto) (0.24-0.82) K/uL Eos # (Auto) (0-0.50) K/uL Baso # (Auto) (0-0.2) K/uL Immature Gran # (Auto) (0.00-0.02) K/uL PT INR Sodium Potassium Chloride (98-107) mmol/L Carbon Dioxide (21-32) mmol/L Anion Gap BUN (6-23) mg/dl Creatinine (0.6-1.2) mg/dl Est Cr Clr Drug Dosing ml/min Est GFR ( Amer) ml/min Est GFR (Non-Af Amer) ml/min BUN/Creatinine Ratio (10-20) Glucose (70-99(Fasting)) mg/dl Calcium (8.5-10.1) mg/dl Magnesium Total Bilirubin (0.2-1.0) mg/dl AST ALT (7-52) U/L Alkaline Phosphatase (34-104) U/L Total Protein (6.0-8.3) gm/dl Albumin (3.4-5.0) gm/dl Globulin (2.5-4.0) gm/dl Albumin/Globulin Ratio (0.9-2) Procalcitonin Cancelled TSH 1.025 (0.300-4.500) uIu/ml SARS-CoV-2, RNA, NAAT POSITIVE A* (NEGATIVE) 02/07/22 02/07/22 02/07/22 Range/Units 13:09 13:09 13:09 WBC (4.8-10.8) K/ul RBC (3.93-5.22) M/uL Hgb (12.0-16.0) g/dl Hct (34.1-44.9) % MCV (80.0-100.0) fL MCH (25.0-34.0) pg MCHC (32.0-36.0) g/dL RDW Std Deviation (36.4-46.3) fL RDW Coeff of Sudha (11.5-14.5) % Plt Count (130-400) K/uL MPV (9.4-12.3) fL Immature Gran % (Auto) % Neut % (Auto) % Lymph % (Auto) % Pinal % (Auto) % Eos % (Auto) % Baso % (Auto) % Neut # (Auto) (1.4-6.5) K/uL Lymph # (Auto) (1.2-3.4) K/uL Pinal # (Auto) (0.24-0.82) K/uL Eos # (Auto) (0-0.50) K/uL Baso # (Auto) (0-0.2) K/uL Immature Gran # (Auto) (0.00-0.02) K/uL PT 14.4 H INR 1.4 H Sodium 129 L Potassium 3.4 L Chloride (98-107) mmol/L Carbon Dioxide (21-32) mmol/L Anion Gap BUN (6-23) mg/dl Creatinine (0.6-1.2) mg/dl Est Cr Clr Drug Dosing ml/min Est GFR ( Amer) ml/min Est GFR (Non-Af Amer) ml/min BUN/Creatinine Ratio (10-20) Glucose (70-99(Fasting)) mg/dl Calcium (8.5-10.1) mg/dl Magnesium 1.8 Total Bilirubin (0.2-1.0) mg/dl AST 21 ALT (7-52) U/L Alkaline Phosphatase (34-104) U/L Total Protein (6.0-8.3) gm/dl Albumin (3.4-5.0) gm/dl Globulin (2.5-4.0) gm/dl Albumin/Globulin Ratio (0.9-2) Procalcitonin 0.05 TSH (0.300-4.500) uIu/ml SARS-CoV-2, RNA, NAAT (NEGATIVE) Administered Medications Discontinued Medications Acetaminophen (Acetaminophen 500 Mg Tab) 1,000 mg PO NOW STA Stop: 02/07/22 11:34 Last Admin: 02/07/22 12:10 Dose: 1,000 mg Documented By: [facility] Albuterol (Albut/Ipratrop 3mg/0.5mg Neb 3 Ml Vial) 3 ml NEB NOW STA; Protocol Stop: 02/07/22 12:19 Last Admin: 02/07/22 12:34 Dose: 3 ml Documented By: [facility] Albuterol (Albut/Ipratrop 3mg/0.5mg Neb 3 Ml Vial) 3 ml NEB NOW STA; Protocol Stop: 02/07/22 15:43 Last Admin: 02/07/22 16:05 Dose: 3 ml Documented By: [facility] Benzonatate (Benzonatate 100 Mg Capsule) 100 mg PO NOW ONE Stop: 02/07/22 12:19 Last Admin: 02/07/22 12:34 Dose: 100 mg Documented By: [facility] Sodium Chloride (Nss) 500 mls @ 999 mls/hr IV .Q31M INES Stop: 02/07/22 12:15 Last Infusion: 02/07/22 12:43 Dose: 0 mls/hr Documented By: Admin: 02/07/22 12:10 Dose: 999 mls/hr Documented By: [facility] Dexamethasone 6 mg/ Syringe 1.5 mls @ 1 mls/min IV ONE ONE Stop: 02/07/22 15:05 Last Admin: 02/07/22 16:05 Dose: 1 mls/min Documented By: [facility] Sodium Chloride (Nss 1000ml) 500 mls @ 999 mls/hr IV .Q31M ONE Stop: 02/07/22 16:12 Last Infusion: 02/07/22 16:38 Dose: 0 mls/hr Documented By: Admin: 02/07/22 16:01 Dose: 999 mls/hr Documented By: [facility] Potassium Chloride (Potassium Chloride Crtab 20 Meq Tabcr) 40 meq PO NOW STA Stop: 02/07/22 16:33 Last Admin: 02/07/22 17:19 Dose: Not Given Documented By: [facility] Potassium Chloride (Potassium Chloride 20 Meq/15 Ml Udc) 40 meq PO NOW STA Stop: 02/07/22 16:46 Last Admin: 02/07/22 17:30 Dose: 40 meq Documented By: [facility] Imaging Data Radiologist's Impression: Cervical Spine CT 02/07/22 11:33 CT OF THE CERVICAL SPINE WITHOUT CONTRAST CLINICAL HISTORY: fall on xarelto COMPARISON STUDY: Cervical spine CT October 07, 2020. TECHNIQUE: Helical axial images of the cervical spine were obtained without IV contrast. Sagittal and coronal reconstructions were viewed. Automated exposure control was utilized for the study. A dose lowering technique was utilized adhering to the principles of ALARA. FINDINGS: Reversal of the cervical lordosis is unchanged. The alignment of the cervical spine is unchanged since CT of October 07, 2020. No acute cervical spine fracture is present. Severe multilevel degenerative changes are noted with mult ilevel disc space narrowing, osteophytosis and facet arthrosis. Appearance of the cervical spine is similar to prior exam. IMPRESSION: 1. No acute cervical spine fracture or subluxation. 2. Severe multilevel degenerative changes within the cervical spine. ACT 112: Negative or not required by law. Electronically signed by: Joselito Montes M.D. 02/07/2022 12:03 PM Chest X-Ray 02/07/22 11:33 XR chest 1V portable CLINICAL HISTORY: weakness, cough COMPARISON STUDY: Chest radiograph November 16, 2021. FINDINGS: Lung volumes are normal. Lungs are clear. There is no pneumothorax or pleural effusion. Cardiac size is normal. Mediastinal contours are normal. There is no evidence for pulmonary edema. Skin folds project over the right chest. IMPRESSION: No acute cardiopulmonary findings. ACT 112: Negative or not required by law. Electronically signed by: Joselito Montes M.D. 02/07/2022 12:[address] 02/07/22 11:[address] DOSE: HISTORY: fall on xarelto TECHNIQUE: Multiaxial CT images of the head were performed without the use of intravenous contrast. Automated exposure control was utilized for this study. A dose lowering technique was utilized adhering to the principles of ALARA. Comparison: Head CT 10/07/2020. Findings: There is an 8 mm polyp within the right posterior nasal cavity and image 2. This remains unchanged. Remaining paranasal sinuses and mastoid air cells are clear. The calvarium and skull base are intact. There is no mass, he matoma, midline shift, acute infarct. White matter hypodensity is nonspecific but suggestive of microvascular ischemic change. The ventricles and sulci demonstrate mild age-related involutional changes. There is an old small lacunar infarct within the right cerebellar hemisphere. Impression: No significant change compared to the prior study. No acute intracranial abnormality. ACT 112: Negative or not required by law. Electronically signed by: Rakesh العلي M.D. 02/07/2022 12:07 PM Discharge Plan Visit Data Chief Complaint: Illness Stated Complaint: LAC ON MOUTH, EXPOSURE TO COVID ED Provider: Norm Sy Discharge Problem: Hypoxia, COVID-19, Fall Patient Disposition: Admitted As Inpatient Discharge Instructions Interventions: ED Discharge Assessment Last Done: 02/07/22 17:08
[2022-02-07] MEDS ORDERED: ACETAMINOPHEN 500 MG TAB PO STA (11:33)
[2022-02-07] MEDS ORDERED: SODIUM CHLORIDE 0.9% 500 ML IV SCH (11:45)
--- NOTE | 2022-02-07 12:04 | CT Scan Report ---
CT OF THE CERVICAL SPINE WITHOUT CONTRAST CLINICAL HISTORY: fall on xarelto COMPARISON STUDY: Cervical spine CT October 07, 2020. TECHNIQUE: Helical axial images of the cervical spine were obtained without IV contrast. Sagittal a nd coronal reconstructions were viewed. Automated exposure control was utilized for the study. A do se lowering technique was utilized adhering to the principles of ALARA. FINDINGS: Reversal of the cervical lordosis is unchanged. The alignment of the cervical spine is unch anged since CT of October 07, 2020. No acute cervical spine fracture is present. Severe multilevel degene rative changes are noted with multilevel disc space narrowing, osteophytosis and facet arthrosis. Shayna earance of the cervical spine is similar to prior exam. IMPRESSION: 1. No acute cervical spine fracture or subluxation. 2. Severe multilevel degenerative changes within the cervical spine. ACT 112: Negative or not required by law. Electronically signed by: Joselito Montes M.D. 02/07/2022 12:03 PM
--- NOTE | 2022-02-07 12:08 | CT Scan Report ---
HEAD CT NONCONTRAST CT DOSE: HISTORY: fall on xarelto TECHNIQUE: Multiaxial CT images of the head were performed without the use of intravenous contrast. A utomated exposure control was utilized for this study. A dose lowering technique was utilized adheri ng to the principles of ALARA. Comparison: Head CT 10/07/2020. Findings: There is an 8 mm polyp within the right posterior nasal cavity and image 2. This remains un changed. Remaining paranasal sinuses and mastoid air cells are clear. The calvarium and skull base ar e intact. There is no mass, hematoma, midline shift, acute infarct. White matter hypodensity is nonsp ecific but suggestive of microvascular ischemic change. The ventricles and sulci demonstrate mild age -related involutional changes. There is an old small lacunar infarct within the right cerebellar cruz sphere. Impression: No significant change compared to the prior study. No acute intracranial abnormality. ACT 112: Negative or not required by law. Electronically signed by: Rakesh العلي M.D. 02/07/2022 12:07 PM
[2022-02-07] MEDS ORDERED: ALBUT/IPRATROP 3MG/0.5MG NEB 3 ML VIAL NEB STA ×2 (12:18→15:42)
[2022-02-07] MEDS ORDERED: BENZONATATE 100 MG CAPSULE PO ONE (12:18)
[2022-02-07 12:25] LABS: Basophils # (auto) 0.04 K/uL (0-0.2); Basophils % (auto) 0.6 %; Eosinophils # (auto) 0.03 K/uL (0-0.50); Eosinophils % (auto) 0.5 %; Hematocrit (blood only) 43.2 % (34.1-44.9); Hemoglobin 14.5 g/dl (12.0-16.0); Immature Granulocytes # (auto) 0.03 K/uL (0.00-0.02); Immature Granulocytes % (auto) 0.5 %; Lymphocytes # (auto) 1.83 K/uL (1.2-3.4); Lymphocytes % (auto) 28.5 %; Mean Corpuscular Hemoglobin 29.3 pg (25.0-34.0); Mean Corpuscular Hgb Conc 33.6 g/dL (32.0-36.0); Mean Corpuscular Volume 87.3 fL (80.0-100.0); Mean Platelet Volume 10.1 fL (9.4-12.3); Monocytes % (auto) 17.1 %; Neutrophils # (auto) 3.39 K/uL (1.4-6.5); Neutrophils % (auto) 52.8 %; Platelet Count 231 K/uL (130-400); RDW Coefficient of Variation 14.6 % (11.5-14.5); RDW Standard Deviation 46.5 fL (36.4-46.3); Red Blood Count 4.95 M/uL (3.93-5.22); White Blood Count 6.42 K/ul (4.8-10.8)
--- NOTE | 2022-02-07 12:28 | XRay Report ---
XR chest 1V portable CLINICAL HISTORY: weakness, cough COMPARISON STUDY: Chest radiograph November 16, 2021. FINDINGS: Lung volumes are normal. Lungs are clear. There is no pneumothorax or pleural effusion. Car diac size is normal. Mediastinal contours are normal. There is no evidence for pulmonary edema. Skin folds project over the right chest. IMPRESSION: No acute cardiopulmonary findings. ACT 112: Negative or not required by law. Electronically signed by: Joselito Montes M.D. 02/07/2022 12:27 PM
[2022-02-07 12:57] LABS: Alanine Aminotransferase 13 U/L (7-52); Albumin Globulin Ratio 1.3 (0.9-2); Albumin Level 3.7 gm/dl (3.4-5.0); Alkaline Phosphatase 52 U/L (34-104); Bilirubin,Total 0.5 mg/dl (0.2-1.0); Blood Urea Nitrogen 20 mg/dl (6-23); Calcium 8.5 mg/dl (8.5-10.1); Carbon Dioxide 25 mmol/L (21-32); Chloride 95 mmol/L (98-107); Creatinine Clr Calc Pharmacy 25.5 ml/min; Est GFR (African American) 46.7 ml/min; Est GFR (Non-African American) 40.3 ml/min; Globulin 2.9 gm/dl (2.5-4.0); Glucose 85 mg/dl (70-99(Fasting)); Total Protein 6.6 gm/dl (6.0-8.3)
[2022-02-07 13:37] LABS: INR 1.4 (0.9-1.1); Prothrombin Time 14.4 Seconds (9.0-12.0)
[2022-02-07 14:01] LABS: Magnesium 1.8 mg/dl (1.7-2.4); Potassium 3.4 mmol/L (3.5-5.1)
[2022-02-07] MEDS ORDERED: dexAMETHasone 6 MG in SYRINGE 0 ML IV ONE (15:04)
--- NOTE | 2022-02-07 15:10 | History & Physical Report ---
Date of Service February 07, 2022 Assessment & Plan (1) Pneumonia due to COVID-19 virus: Plan: Weakness and acute hypoxic respiratory failure 2/2 COVID-pneumonia Initial concern for aspiration pneumonia following ERCP, patient with negative Pro-Rory and no findings on x-ray Patient is COVID-positive, has multiple family members with COVID at home COVID vaccinated, and boosted Dry cough for approximately [address] pending Hypoxic to the 80s in ER, mid 90s on room air Continue dexamethasone 6 mg daily Mild MARIANO, remdesivir deferred Procalcitonin negative, additional antibiotics deferred at this time Patient is anticoagulated for a PE, no additional DVT prophylaxis indicated MARIANO on CKD Mild elevation from baseline of around 1, 1.25 on admission Defer Lasix today, prefer slightly dry status given COVID. Does appear slightly volume and solute depleted, supplementation given We will repeat in morning and continue Lasix if normalized Renally dose medications Ratio not elevated Hyponatremia Patient reports his pulmonary hypertension at baseline, eats almost no salt DDx includes low solute state, SIADH with pneumonia Urine studies pending, given chronic prednisone dosing morning cortisol also added Trend History of PE Continue Xarelto, patient has not missed doses of this Polymyalgia rheumatica Baseline with rib pain and MSK pain, has not changed recently On prednisone 2.5 mg daily at baseline Prednisone temporarily replace with dexamethasone Hypothyroidism Continue Synthroid 75 mcg daily Anxiety/depression Continue duloxetine Trazodone nightly History of asthma Continue home inhaler/formulary equivalent Bile duct calculus Patient has a history of cholecystectomy many years ago, but was found to have residual bile duct sludge Underwent ERCP 01/31/2022 No abdominal pain at time of assessment Dispo: Medical surgical Diet: Heart healthy CODE STATUS: Full code, discussed with patient DVT prophylaxis: Anticoagulated (2) 3-vessel coronary artery disease: (3) Asthma: (4) GERD (gastroesophageal reflux disease): (5) Hypothyroid: (6) AYE (obstructive sleep apnea): (7) Pulmonary hypertension: (8) Pulmonary embolism: History of Present Illness Primary Care Provider: Dalton Rendon MD Low NA, eating drinking poorly Hypox CT-H: wnl XR: naf Porocal neg Mechanical fall got up and tripped over a bed mat when she got up to use the bathroom Eating and drinking more or less OK. Peeing at least twice per day on a water pill. Did not take her pills today No fever./ no sweats. +chills for 3 days. +cough, dry. No shortness of breath. 3 days of cough ENdorses chronic fibromyalgia pain in her ribs 'always', no chagne and no other chest pain or chest pressure. No sweating. No nausea/vomiting/diarrhea COVID vaccinated and booster Past PE October this year,. on xarelto postop. Had an ERCP. Past hx cholecystectomy; still had residual stones. +Pulmonary HTN Denies heart problems ON pred 2.5mg chronically Medical History: Reviewed Medications: Reviewed Surgical History: Reviewed Allergies: Reviewed. NKDA. Easy GI upset. Social History: No tobacco or alcohol use. Code Status: Allergies Allergy/AdvReac Type Severity Reaction Status Date / Time aspirin Allergy Intermediate GI UPSET Verified 02/07/22 15:14 codeine Allergy Intermediate GI UPSET Verified 02/07/22 15:14 erythromycin base Allergy Intermediate GI UPSET Verified 02/07/22 15:14 Home Medications Medication Instructions Recorded Confirmed Type multivitamin 1 tab PO QAM 06/10/18 01/31/22 History trazodone 100 mg tablet 1 tab PO QPM 06/10/18 02/07/22 History tramadol 50 mg tablet 50 mg PO TID 02/13/19 02/07/22 History latanoprost 0.005 % eye drops 1 drops ophthalmic (eye) QPM 03/03/19 02/07/22 History alendronate 70 mg tablet (Fosamax) 70 mg PO WK 01/17/20 02/07/22 History dorzolamide 22.3 mg-timolol 6.8 1 drp OPB BID 10/07/20 01/31/22 History mg/mL eye drops zinc sulfate 25 mg zinc (110 mg) 25 mg PO DAILY 12/11/20 01/31/22 History tablet (Orazinc) duloxetine 60 mg capsule,delayed 120 mg PO QAM 01/31/21 02/07/22 History release (Cymbalta) albuterol sulfate 90 mcg/actuation 2 puff inhalation Q6H PRN 03/11/21 01/31/22 Rx aerosol inhaler shortness of breath or wheezing #3 Inhalers budesonide-formoterol HFA 160 2 puff inhalation BID #3 Inhalers 06/25/21 01/31/22 Rx mcg-4.5 mcg/actuation aerosol inhaler (Symbicort) artificial tears(hypromellose) 0.3 1 drp ophthalmic (eye) TID 09/18/21 01/31/22 History % eye gel (Systane Gel) fexofenadine 60 mg tablet 180 mg PO QAM 09/18/21 01/31/22 History furosemide 20 mg tablet 20 mg PO QAM 09/18/21 01/31/22 History peg 400-propylene glycol 0.4 %-0.3 1 drp ophthalmic (eye) TID 09/18/21 01/31/22 History % eye drops (Systane Ultra) docusate sodium 100 mg capsule 100 mg PO QAM 09/23/21 01/31/22 History magnesium 250 mg tablet 250 mg PO QAM 09/23/21 01/31/22 History cholecalciferol (vitamin D3) 25 25 mcg PO DAILY 11/10/21 01/31/22 History mcg (1,000 unit) tablet (Vitamin D3) prednisone 2.5 mg tablet 2.5 mg PO DAILY #90 tabs 11/26/21 01/31/22 Rx montelukast 10 mg tablet 10 mg PO HS #90 tabs 12/09/21 01/31/22 Rx gabapentin 300 mg capsule 300 mg PO HS 90 days #90 caps 12/16/21 01/31/22 Rx topiramate 50 mg tablet 100 mg PO BID 90 days #360 tabs 01/24/22 02/07/22 Rx famotidine 20 mg tablet 20 mg PO HS 02/07/22 02/07/22 History levothyroxine 75 mcg tablet 75 mcg PO DAILYBB 02/07/22 History pantoprazole 40 mg tablet,delayed 40 mg PO BID 02/07/22 02/07/22 History release rivaroxaban 20 mg tablet (Xarelto) 20 mg PO QPM 02/07/22 02/07/22 History Past Med/Surg History Medical History Anxiety Aortic valve insufficiency Moderate per 07/[address] 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, reports no residual deficits, no issues since Surgical History H/O sinus surgery H/O tubal ligation History of cholecystectomy History of esophagogastroduodenoscopy (EGD) (~2011) History of hysterectomy with unilateral oopherectomy- 1978 History of lumbar laminectomy 2000 History of orthopedic surgery rhizotomy- pt unsure about this S/P cataract surgery S/P ERCP Family History Mother Diabetes Ovarian cancer Hypertension Kidney disease Father Diabetes Cardiac disorder Hypertension Stroke Alcohol abuse Other specified hearing loss, bilateral Aunt Breast cancer Brother Cancer Alcohol abuse Daughter , peritonitis Alcohol abuse Anxiety Dementia Family/Other Depression Anxiety Other No significant family history Denies family history of Colorectal cancer Social History Smoking Status: Never smoker Second Hand Exposure: No; Hx Alcohol Use: No Hx Substance Use: No Preferred Language: Ecuadorean Communication Ability: Effective Visual Impairment: Limited Hearing Ability: Normal Data Control Assistant Required: No Beliefs That Will Affect Care: None marital status: / Current Living Situation: Family Current Living Situation Comment: GRAND DAUGHTER AND SON WILL HELP current occupational status: retired How many Children do You have: 1 Feels Safe at Home: Yes Childhood Exposure to Second-Hand Smoke: No caffeine: No during the past year weight has: decreased > 10 lbs Dental Care, Regularly: Yes Physical Activity Frequency: 1-2 Times per Week Seatbelt Use: always Sunscreen Use: Yes Assistive Devices: None Review of Systems Review of Systems: All systems reviewed & are unremarkable except as noted in Subjective Physical Exam Physical Exam: General: A&Ox3. NAD. Cooperative. HEENT: Atraumatic, normocephalic. Pulm: CTAB A&P. -wheezes, -rales, -rhonchi. Symmetrical chest rise. No increase in work of breathing. No respiratory distress. Cardiac: RRR, -mrg. Radial pulses intact and symmetrical. Abdominal: Nontender, nondistended, soft. BS present. Results & Data Results & Data ([facility]) Vital Signs (Past 12 Hours) Vital Signs Temp Pulse Pulse Resp BP BP Pulse Ox 02/07/22 14:00 75 18 86/51 L 89 L 02/07/22 12:05 114/59 L 02/07/22 10:58 36.8 C 63 18 112/54 L 100 O2 Del Method 02/07/22 14:00 Room Air 02/07/22 12:05 02/07/22 10:58 Room Air PG Care Time/CCT Total # of Minutes Spent Total Time Spent with Patient: Total time spent is greater than 50% in coordination of care (as documented) at patient's floor/unit and/or counseling patient: Coding Level of Care Code 09698 Initial Inpt Care Lvl 2 Diagnoses Pneumonia due to COVID-19 virus U07.1; J12.82 3-vessel coronary artery disease I25.10 Asthma J45.20 Asthma severity: mild Asthma persistence: intermittent Asthma complication type: uncomplicated GERD (gastroesophageal reflux disease) K21.9 Esophagitis presence: esophagitis presence not specified Hypothyroid E03.9 AYE (obstructive sleep apnea) G47.33 Pulmonary hypertension I27.20 Pulmonary embolism I26.99 (1) Asthma Asthma severity: mild Asthma persistence: intermittent Asthma complication type: uncomplicated Qualified Code(s): J45.20 - Mild intermittent asthma, uncomplicated (2) GERD (gastroesophageal reflux disease) Esophagitis presence: esophagitis presence not specified Qualified Code(s): K21.9 - Gastro-esophageal reflux disease without esophagitis
[2022-02-07] MEDS ORDERED: SODIUM CHLORIDE 0.9% 1000ML 500 ML IV ONE (15:42)
[2022-02-07] MEDS ORDERED: POTASSIUM CHLORIDE CRTAB 20 MEQ TABCR PO STA (16:32)
[2022-02-07] MEDS ORDERED: POTASSIUM CHLORIDE 20 MEQ/15 ML UDC PO STA (16:45)
[2022-02-07] MEDS ORDERED: ALBUTEROL HFA 8 GM INHALER INH PRN (17:12)
[2022-02-07] MEDS ORDERED: ACETAMINOPHEN 325 MG TAB PO PRN (17:12)
[2022-02-07] MEDS ORDERED: LACTATED RINGER'S 1,000 ML IV SCH (19:00)
--- NOTE | 2022-02-07 20:30 | Communication Note ---
Date of Service: February 07, 2022 Messaged by RT about settings for cpap/bipap HS that was ordered per provider. Reviewed vitals. 100% on O2. Goal O2 sat >90%. Changed order to cpap hs per protocol to treat hx of ady. Deferring to day hospitalist regarding if order needs to be changed. Informed that patient does not have diet order and has pending speech eval for complaints of swallowing issues in the ED. NPO, allowing PO meds ordered. Notified of soft BP 89/47 at 3AM. Ordering 500mL LR bolus. holding AM lasix.
[2022-02-07] MEDS ORDERED: RIVAROXABAN 20 MG TAB PO SCH (21:00)
[2022-02-07] MEDS: traZODone HCL 100 MG TAB PO SCH (23:44)
[2022-02-07] MEDS: TOPIRAMATE 100 MG TAB PO SCH (23:44)
[2022-02-07] MEDS: traMADol HCL 50 MG TABLET PO SCH (23:44)
[2022-02-07] MEDS: GABAPENTIN 300 MG CAP PO SCH (23:45)
[2022-02-07] MEDS: PANTOprazole 40 MG TAB PO SCH (23:45)
[2022-02-07] MEDS: FAMOTIDINE 20 MG TAB PO SCH (23:45)
[2022-02-07] MEDS: DORZOLAMIDE/TIMOLOL 22.3/6.8MG/ML 10 ML BTL OPB SCH (23:46)
[2022-02-07] MEDS: LATANOPROST 0.005% OP SOLN 2.5 ML BTL OP SCH (23:48)
[2022-02-08] MEDS: traMADol HCL 50 MG TABLET PO SCH ×4 (00:16→20:52)
[2022-02-08] MEDS: ARTIFICIAL TEARS OP SCH ×4 (00:18→20:54)
[2022-02-08] MEDS ORDERED: LACTATED RINGER'S 500 ML IV ONE (03:05)
[2022-02-08] MEDS: LEVOTHYROXINE SODIUM 75 MCG TABLET PO SCH (05:55)
[2022-02-08 07:50] LABS: Basophils # (auto) 0.01 K/uL (0-0.2); Basophils % (auto) 0.3 %; Hematocrit (blood only) 36.8 % (34.1-44.9); Hemoglobin 12.3 g/dl (12.0-16.0); Immature Granulocytes # (auto) 0.02 K/uL (0.00-0.02); Immature Granulocytes % (auto) 0.6 %; Lymphocytes # (auto) 1.12 K/uL (1.2-3.4); Lymphocytes % (auto) 32.2 %; Mean Corpuscular Hemoglobin 29.2 pg (25.0-34.0); Mean Corpuscular Hgb Conc 33.4 g/dL (32.0-36.0); Mean Corpuscular Volume 87.4 fL (80.0-100.0); Mean Platelet Volume 9.7 fL (9.4-12.3); Monocytes # (auto) 0.43 K/uL (0.24-0.82); Monocytes % (auto) 12.4 %; Neutrophils % (auto) 54.5 %; Platelet Count 205 K/uL (130-400); RDW Coefficient of Variation 14.3 % (11.5-14.5); RDW Standard Deviation 45.8 fL (36.4-46.3); Red Blood Count 4.21 M/uL (3.93-5.22); White Blood Count 3.48 K/ul (4.8-10.8)
--- NOTE | 2022-02-08 07:50 | Hospitalist Progress Note ---
Date of Service February 08, 2022 Assessment & Plan (1) Acute respiratory failure with hypoxia: Plan: 81 yo F Hx polymyalgia rheumatica, pulmonary hypertension, hypothyroidism, PE on Xarelto, CKD, anxiety, and depression presented with weakness and fall, was noted to be hypoxic in ER, and was diagnosed with COVID-19 pneumonia. Weakness and acute hypoxic respiratory failure 2/2 COVID pneumonia: - Initial concern for aspiration pneumonia following ERCP, patient with negative Procal and no findings on x-ray. - Patient is COVID+. She is vaccinated and boosted. - Was requiring supplemental oxygen when admitted, however is currently on room air. - Continue dexamethasone 6 mg daily. - Remdesivir deferred in setting of MARIANO. - Patient is anticoagulated for a history of PE, no additional DVT prophylaxis indicated. (2) Pneumonia due to COVID-19 virus: Plan: see above (3) Acute kidney injury superimposed on CKD: Plan: - Creatinine 1.25 on admission; mild elevation from baseline of around 1.0. - 0.85 this morning after holding Lasix. - Daily BMP. (4) Hyponatremia: Plan: - Patient reports history of pulmonary hypertension at baseline. - UOsm > Serum Osm; consistent with SIADH. - Fluid restrict 1500cc. (5) Weakness: Plan: see #1 (6) Pulmonary hypertension: Plan: see #4 (7) Polymyalgia rheumatica: Plan: - Baseline with rib pain and MSK pain. - On prednisone 2.5 mg daily at baseline. - Prednisone temporarily replaced with dexamethasone. (8) Pulmonary embolism: Plan: - Hx of. - Continue Xarelto. (9) Hypothyroid: Plan: - Continue Synthroid 75 mcg daily. (10) Anxiety and depression: Plan: - Continue duloxetine and trazodone. Plan Dispo: Medical surgical Diet: Heart healthy CODE STATUS: Full code, discussed with patient DVT prophylaxis: Anticoagulated Admission and Anticipated Discharge Date Admission Date: February 07, 2022 Subjective Overnight had soft BP 80s systolic, improved with 500cc NSS bolus. This AM [place] reports improvement in her breathing since admission. Review of Systems Constitutional: no fever and no chills Respiratory: no cough and no dyspnea Cardiovascular: no chest pain and no palpitations Gastrointestinal: no abdominal pain, no nausea and no vomiting Physical Exam Constitutional: WD/WN, vitals as above Respiratory: normal respiratory effort, lungs clear to auscultation Cardiovascular: RRR, no murmur, no edema Gastrointestinal (Abdomen): normal bowel sounds, soft, nontender, no hepatosplenomegaly Skin: no rashes, warm and dry Psychiatric: A+Ox3, euthymic affect Results & Data Results & Data ([facility]) Vital Signs (Past 12 Hours) Vital Signs Temp Pulse Pulse Pulse Resp BP BP 02/08/22 07:27 69 02/08/22 05:52 74 102/62 02/07/22 22:10 75 02/07/22 21:59 72 02/08/22 03:48 36.5 C 81 20 89/47 L 02/07/22 21:55 02/07/22 21:49 36.4 C L 77 20 95/60 L 02/07/22 21:39 02/07/22 20:00 Pulse Ox O2 Del Method O2 Flow Rate 02/08/22 07:27 02/08/22 05:52 02/07/22 22:10 02/07/22 21:59 02/08/22 03:48 93 Nasal Cannula 2 02/07/22 21:55 Nasal Cannula 2 02/07/22 21:49 92 Nasal Cannula 2 02/07/22 21:39 Nasal Cannula 02/07/22 20:00 Nasal Cannula PG Care Time/CCT Total # of Minutes Spent Total Time Spent with Patient: Total time spent is greater than 50% in coordination of care (as documented) at patient's floor/unit and/or counseling patient: Coding Level of Care Code 15816 Subseq Hosp Care Lvl 3 Diagnoses Acute respiratory failure with hypoxia J96.01 Pneumonia due to COVID-19 virus U07.1; J12.82 Acute kidney injury superimposed on CKD N17.9; N18.9 Hyponatremia E87.1 Weakness R53.1 Pulmonary hypertension I27.20 Polymyalgia rheumatica M35.3 Pulmonary embolism I26.99 Hypothyroid E03.9 Anxiety and depression F41.9; F32.A
[2022-02-08] MEDS: dexAMETHasone 6 MG in SYRINGE 0 ML IV SCH (08:29)
[2022-02-08] MEDS: TOPIRAMATE 100 MG TAB PO SCH ×2 (08:29→20:56)
[2022-02-08] MEDS: PANTOprazole 40 MG TAB PO SCH ×2 (08:29→20:57)
[2022-02-08] MEDS: CHOLECALCIFEROL 1,000 UNITS 25 MCG TAB PO SCH (08:30)
[2022-02-08] MEDS: MAGNESIUM OXIDE 400 MG TAB PO SCH (08:30)
[2022-02-08] MEDS: FLUTICASONE/VILANTEROL 200/25MCG 14 PUFFS/INHALER INH SCH (08:30)
[2022-02-08] MEDS: DULoxetine HCL 60 MG CAP PO SCH (08:30)
[2022-02-08] MEDS: DOCUSATE SODIUM 100 MG CAP PO SCH (08:30)
[2022-02-08] MEDS: DORZOLAMIDE/TIMOLOL 22.3/6.8MG/ML 10 ML BTL OPB SCH ×2 (08:32→20:53)
[2022-02-08 08:37] LABS: BUN Creatinine Ratio 18.8 (10-20); Calcium 8.2 mg/dl (8.5-10.1); Creatinine Clr Calc Pharmacy 36.6 ml/min; Est GFR (African American) 74.5 ml/min; Est GFR (Non-African American) 64.3 ml/min; Potassium 4.1 mmol/L (3.5-5.1)
[2022-02-08] MEDS ORDERED: FUROSEMIDE 20 MG TAB PO SCH (09:00)
[2022-02-08] MEDS ORDERED: ENOXAPARIN INJ 60 MG/0.6 ML SYR SQ SCH (09:00)
[2022-02-08] MEDS ORDERED: PNEUMOCOCCAL Polysaccharide Vaccine 25mcg/0.5mL vial/Syr IM ONE (17:15)
[2022-02-08] MEDS: LATANOPROST 0.005% OP SOLN 2.5 ML BTL OP SCH (20:54)
[2022-02-08] MEDS: traZODone HCL 100 MG TAB PO SCH (20:57)
[2022-02-08] MEDS: FAMOTIDINE 20 MG TAB PO SCH (20:57)
[2022-02-08] MEDS: GABAPENTIN 300 MG CAP PO SCH (20:57)
[2022-02-09 05:54] LABS: Hematocrit (blood only) 37.1 % (34.1-44.9); Hemoglobin 12.4 g/dl (12.0-16.0); Mean Corpuscular Hemoglobin 29.4 pg (25.0-34.0); Mean Corpuscular Hgb Conc 33.4 g/dL (32.0-36.0); Mean Corpuscular Volume 87.9 fL (80.0-100.0); Mean Platelet Volume 10.2 fL (9.4-12.3); Platelet Count 213 K/uL (130-400); RDW Coefficient of Variation 14.5 % (11.5-14.5); Red Blood Count 4.22 M/uL (3.93-5.22); White Blood Count 4.92 K/ul (4.8-10.8)
[2022-02-09] MEDS: LEVOTHYROXINE SODIUM 75 MCG TABLET PO SCH (06:03)
[2022-02-09 06:27] LABS: BUN Creatinine Ratio 19.4 (10-20); Calcium 8.4 mg/dl (8.5-10.1); Creatinine Clr Calc Pharmacy 33.9 ml/min; Est GFR (African American) 66.8 ml/min; Est GFR (Non-African American) 57.6 ml/min; Potassium 3.4 mmol/L (3.5-5.1)
[2022-02-09] MEDS ORDERED: POTASSIUM CHLORIDE CRTAB 20 MEQ TABCR PO STA (07:59)
--- NOTE | 2022-02-09 08:04 | Discharge Summary ---
Discharge Summary Date of Service February 09, 2022 Admission HPI Per Admitting Provider Low NA, eating drinking poorly Hypox CT-H: wnl XR: naf Porocal neg Mechanical fall got up and tripped over a bed mat when she got up to use the bathroom Eating and drinking more or less OK. Peeing at least twice per day on a water pill. Did not take her pills today No fever./ no sweats. +chills for 3 days. +cough, dry. No shortness of breath. 3 days of cough ENdorses chronic fibromyalgia pain in her ribs 'always', no chagne and no other chest pain or chest pressure. No sweating. No nausea/vomiting/diarrhea COVID vaccinated and booster Past PE October this year,. on xarelto postop. Had an ERCP. Past hx cholecystectomy; still had residual stones. +Pulmonary HTN Denies heart problems ON pred 2.5mg chronically Medical History: Reviewed Medications: Reviewed Surgical History: Reviewed Allergies: Reviewed. NKDA. Easy GI upset. Social History: No tobacco or alcohol use. Code Status: Admission Exam Per Admitting Provider General: A&Ox3. NAD. Cooperative. HEENT: Atraumatic, normocephalic. Pulm: CTAB A&P. -wheezes, -rales, -rhonchi. Symmetrical chest rise. No increase in work of breathing. No respiratory distress. Cardiac: RRR, -mrg. Radial pulses intact and symmetrical. Abdominal: Nontender, nondistended, soft. BS present. Principal Dx & Hospital Course #1 = Principal Diagnosis (1) Acute respiratory failure with hypoxia: 81 yo F Hx polymyalgia rheumatica, pulmonary hypertension, hypothyroidism, PE on Xarelto, CKD, anxiety, and depression presented with weakness and fall, was noted to be hypoxic in ER, and was diagnosed with COVID-19 pneumonia. Weakness and acute hypoxic respiratory failure 2/2 COVID pneumonia: - Initial concern for aspiration pneumonia following ERCP, patient with negative Procal and no findings on x-ray. - Patient is COVID+. She is vaccinated and boosted. - Was requiring supplemental oxygen when admitted, however was on room air on discharge. - Received dexamethasone while admitted; patient can resume home prednisone 2.5mg daily starting tomorrow. - Remdesivir deferred in setting of MARIANO. - Patient is anticoagulated for a history of PE, no additional DVT prophylaxis indicated. (2) Pneumonia due to COVID-19 virus: see above (3) Acute kidney injury superimposed on CKD: - Creatinine 1.25 on admission; mild elevation from baseline of around 1.0. - 0.85 this morning after holding Lasix x1. - Baseline renal function on discharge. (4) Hyponatremia: - Patient reports history of pulmonary hypertension at baseline. - UOsm > Serum Osm on admission; consistent with SIADH. - Fluid restricted 1500cc with improvement in Na to 138. (5) Weakness: - see #1 - PT and OT evaluated patient while admitted; recommended home as patient was independent with all activities. (6) Pulmonary hypertension: - see #4 (7) Polymyalgia rheumatica: - Baseline with rib pain and MSK pain. - On prednisone 2.5 mg daily at baseline, resume on discharge. (8) Pulmonary embolism: - Hx of. - Continue Xarelto. (9) Hypothyroid: - Continue Synthroid 75 mcg daily. (10) Anxiety and depression: - Continue duloxetine and trazodone. Plan Dispo: Home Discharge Exam Constitutional WD/WN, vitals as above Respiratory normal respiratory effort, lungs clear to auscultation Updated Medication List Medication Instructions Recorded Confirmed Type multivitamin 1 tab PO QAM 06/10/18 02/07/22 History trazodone 100 mg tablet 1 tab PO QPM 06/10/18 02/07/22 History tramadol 50 mg tablet 50 mg PO TID 02/13/19 02/07/22 History latanoprost 0.005 % eye drops 1 drops ophthalmic (eye) QPM 03/03/19 02/07/22 History alendronate 70 mg tablet (Fosamax) 70 mg PO WK 01/17/20 02/07/22 History dorzolamide 22.3 mg-timolol 6.8 1 drp OPB BID 10/07/20 02/07/22 History mg/mL eye drops zinc sulfate 25 mg zinc (110 mg) 25 mg PO DAILY 12/11/20 02/07/22 History tablet (Orazinc) duloxetine 60 mg capsule,delayed 120 mg PO QAM 01/31/21 02/07/22 History release (Cymbalta) albuterol sulfate 90 mcg/actuation 2 puff inhalation Q6H PRN 03/11/21 02/07/22 Rx aerosol inhaler shortness of breath or wheezing #3 Inhalers budesonide-formoterol HFA 160 2 puff inhalation BID #3 Inhalers 06/25/21 02/07/22 Rx mcg-4.5 mcg/actuation aerosol inhaler (Symbicort) artificial tears(hypromellose) 0.3 1 drp ophthalmic (eye) TID 09/18/21 02/07/22 History % eye gel (Systane Gel) fexofenadine 60 mg tablet 180 mg PO QAM 09/18/21 02/07/22 History furosemide 20 mg tablet 20 mg PO QAM 09/18/21 02/07/22 History peg 400-propylene glycol 0.4 %-0.3 1 drp ophthalmic (eye) TID 09/18/21 02/07/22 History % eye drops (Systane Ultra) docusate sodium 100 mg capsule 100 mg PO QAM 09/23/21 02/07/22 History magnesium 250 mg tablet 250 mg PO QAM 09/23/21 02/07/22 History cholecalciferol (vitamin D3) 25 25 mcg PO DAILY 11/10/21 02/07/22 History mcg (1,000 unit) tablet (Vitamin D3) prednisone 2.5 mg tablet 2.5 mg PO DAILY #90 tabs 11/26/21 02/07/22 Rx montelukast 10 mg tablet 10 mg PO HS #90 tabs 12/09/21 02/07/22 Rx gabapentin 300 mg capsule 300 mg PO HS 90 days #90 caps 12/16/21 02/07/22 Rx topiramate 50 mg tablet 100 mg PO BID 90 days #360 tabs 01/24/22 02/07/22 Rx famotidine 20 mg tablet 20 mg PO HS 02/07/22 02/07/22 History levothyroxine 75 mcg tablet 75 mcg PO DAILYBB 02/07/22 02/07/22 History pantoprazole 40 mg tablet,delayed 40 mg PO BID 02/07/22 02/07/22 History release rivaroxaban 20 mg tablet (Xarelto) 20 mg PO QPM 02/07/22 02/07/22 History Hospital Stay Data Consultations 02/07/22 15:01 ED Decision to Admit Stat Diagnostic Imagining Performed 02/07/22 11:33 CT cervical spine wo con Stat CT head/brain wo con Stat Discharge Instructions Given to Patient (Per Discharging Provider) You were admitted to the hospital due to weakness and were noted to have be p ositive for COVID-19. While you were admitted you were given IV steroids in order to help your lungs deal with COVID. When you return home you can resume using your daily prednisone, starting tomorrow. You were noted to have a low sodium on your admission; this can happen in COVID illness and her sodium was normal on your discharge day. Our physical therapists felt that you are safe for discharge home. If you have any concerns with regard to weakness or trouble breathing, please call your primary care provider. If you have any acute trouble breathing or pain in your chest please seek urgent evaluation. None of your home medications were changed during this hospitalization. Total Time Total Time Spent Total Time Spent (In Minutes): 35 Coding Level of Care Code D/C DAY MANAGEMENT >30 MINS Diagnoses Acute respiratory failure with hypoxia J96.01 Pneumonia due to COVID-19 virus U07.1; J12.82 Acute kidney injury superimposed on CKD N17.9; N18.9 Hyponatremia E87.1 Weakness R53.1 Pulmonary hypertension I27.20 Polymyalgia rheumatica M35.3 Pulmonary embolism I26.99 Hypothyroid E03.9 Anxiety and depression F41.9; F32.A
[2022-02-09] MEDS: dexAMETHasone 6 MG in SYRINGE 0 ML IV SCH (08:47)
[2022-02-09] MEDS: DORZOLAMIDE/TIMOLOL 22.3/6.8MG/ML 10 ML BTL OPB SCH (08:48)
[2022-02-09] MEDS: traMADol HCL 50 MG TABLET PO SCH ×2 (08:48→12:35)
[2022-02-09] MEDS: ARTIFICIAL TEARS OP SCH ×2 (08:48→12:35)
[2022-02-09] MEDS: FLUTICASONE/VILANTEROL 200/25MCG 14 PUFFS/INHALER INH SCH (08:49)
[2022-02-09] MEDS: DULoxetine HCL 60 MG CAP PO SCH (08:49)
[2022-02-09] MEDS: MAGNESIUM OXIDE 400 MG TAB PO SCH (08:49)
[2022-02-09] MEDS: TOPIRAMATE 100 MG TAB PO SCH (08:49)
[2022-02-09] MEDS: DOCUSATE SODIUM 100 MG CAP PO SCH (08:49)
[2022-02-09] MEDS: PANTOprazole 40 MG TAB PO SCH (08:49)
[2022-02-09] MEDS: CHOLECALCIFEROL 1,000 UNITS 25 MCG TAB PO SCH (08:49)
[2022-02-09] MEDS ORDERED: RIVAROXABAN 20 MG TAB PO SCH (09:00)
== END 2022-02-09 15:23 | disposition home or self-care (01) | DRG 177 ==
LOC: ED 10:46 → SUATTDRO 15:33 → EDINP 15:33 → 2N 21:38

== ENCOUNTER 2022-02-18 16:46 | Inpatient (IN) ==
--- NOTE | 2022-02-18 16:50 | ED Triage Note ---
Date of Service February 18, 2022 History of Present Illness This patient was briefly evaluated while in triage. An abbreviated physical exam was performed. This patient is a 81-year-old Female with past medical history of Covid-19, recently admitted to the hospital and d/c on Thursday who presents to the ED for evaluation of "I have gotten worse." Pt. states she has absolutely no energy, she has been coughing persistently. Physical Exam VITALS: Vitals are noted on the nurse's note and reviewed by myself. GENERAL: This is an 81 year old female, in no acute distress, nondiaphoretic, well-developed well-nourished. SKIN: No obvious rashes, edema, erythema HEAD: Normocephalic atraumatic. EYES: Conjunctivae without injection, sclerae without icterus. NECK: No JVD. LUNGS: No retractions or accessory muscle use. MUSCULOSKELETAL: Normal gait. NEURO: Patient was alert and oriented to person place and time. No focal neurological deficits. Initial orders for labs and / or imaging were placed and patient was placed in the waiting area until a bed is available. Please see further documentation for the full ED course.
[2022-02-18] MEDS ORDERED: SODIUM CHLORIDE 0.9% 1000ML 500 ML IV ONE (17:02)
--- NOTE | 2022-02-18 17:23 | XRay Report ---
XR chest 1V portable CLINICAL HISTORY: Dyspnea TECHNIQUE: Single frontal radiograph of the chest was obtained. Comparison: Comparison is made to chest radiograph 02/07/2022 FINDINGS: No lines and tubes are seen. The cardiomediastinal silhouette is normal. Focal atelectasis is seen in the right lower lung. No evidence of pleural effusion or pneumothorax. IMPRESSION: No acute chest disease. ACT 112: Negative or not required by law. Electronically signed by: Shane Parra M.D. 02/18/2022 5:22 PM
[2022-02-18 18:57] LABS: Basophils # (auto) 0.04 K/uL (0-0.2); Basophils % (auto) 0.4 %; Eosinophils # (auto) 0.19 K/uL (0-0.50); Hematocrit (blood only) 40.1 % (34.1-44.9); Hemoglobin 13.5 g/dl (12.0-16.0); Immature Granulocytes # (auto) 0.08 K/uL (0.00-0.02); Immature Granulocytes % (auto) 0.8 %; Lymphocytes # (auto) 1.12 K/uL (1.2-3.4); Lymphocytes % (auto) 11.7 %; Mean Corpuscular Hemoglobin 29.4 pg (25.0-34.0); Mean Corpuscular Hgb Conc 33.7 g/dL (32.0-36.0); Mean Corpuscular Volume 87.4 fL (80.0-100.0); Mean Platelet Volume 9.8 fL (9.4-12.3); Monocytes # (auto) 0.83 K/uL (0.24-0.82); Monocytes % (auto) 8.6 %; Neutrophils # (auto) 7.34 K/uL (1.4-6.5); Neutrophils % (auto) 76.5 %; Platelet Count 358 K/uL (130-400); RDW Coefficient of Variation 14.5 % (11.5-14.5); RDW Standard Deviation 46.3 fL (36.4-46.3); Red Blood Count 4.59 M/uL (3.93-5.22)
[2022-02-18 20:16] LABS: INR 1.1 (0.9-1.1); Partial Thromboplastin Ratio 1.1; Partial Thromboplastin Time 30.8 Seconds (21.0-31.0); Prothrombin Time 11.9 Seconds (9.0-12.0)
[2022-02-18 20:30] LABS: Troponin I High Sensitivity 26.1 pg/ml (0-14)
[2022-02-18 20:32] LABS: Alanine Aminotransferase 22 U/L (7-52); Albumin Level 3.5 gm/dl (3.4-5.0); Alkaline Phosphatase 61 U/L (34-104); Anion Gap 7 (3-11); Aspartate Aminotransferase 25 U/L (13-39); BUN Creatinine Ratio 14.8 (10-20); Bilirubin,Total 0.5 mg/dl (0.2-1.0); Blood Urea Nitrogen 13 mg/dl (6-23); Calcium 8.6 mg/dl (8.5-10.1); Carbon Dioxide 27 mmol/L (21-32); Chloride 97 mmol/L (98-107); Est GFR (African American) 71.4 ml/min; Est GFR (Non-African American) 61.6 ml/min; Globulin 3.6 gm/dl (2.5-4.0); Glucose 120 mg/dl (70-99(Fasting)); Potassium 3.9 mmol/L (3.5-5.1); Sodium 131 mmol/L (136-145); Total Protein 7.1 gm/dl (6.0-8.3)
[2022-02-18] MEDS ORDERED: OPTIRAY 300 500mL IV ONE (21:44)
[2022-02-18] MEDS ORDERED: CEFEPIME 2,000 MG/20 ML VIAL IV STA (22:21)
--- NOTE | 2022-02-18 22:35 | Emergency Department Note ---
History of Present Illness General Chief complaint: Shortness of Breath/Dyspnea Stated complaint: SOB, BODY ACHES Time Seen by Provider: 02/18/22 17:03 History of Present Illness Maximum Pain Intensity: 7 81-year-old female presents to the ED with a chief complaint of decreased energy and weakness. The patient states that she keeps coughing ever since she had COVID. The patient states that she does not have the energy to do anything. The patient had COVID 2 or 3 weeks ago. She states that her cough has been worsening over the past week or so. It is nonproductive. She reports decreased appetite since having COVID. Symptoms are worse with exertion. Nothing makes it better. Home Medications Medication Instructions Recorded Confirmed Type multivitamin 1 tab PO QAM 06/10/18 02/18/22 History trazodone 100 mg tablet 1 tab PO QPM 06/10/18 02/18/22 History tramadol 50 mg tablet 50 mg PO TID 02/13/19 02/18/22 History latanoprost 0.005 % eye drops 1 drops ophthalmic (eye) QPM 03/03/19 02/18/22 His tory alendronate 70 mg tablet (Fosamax) 70 mg PO WK 01/17/20 02/18/22 History dorzolamide 22.3 mg-timolol 6.8 1 drp OPB BID 10/07/20 02/18/22 History mg/mL eye drops zinc sulfate 25 mg zinc (110 mg) 25 mg PO DAILY 12/11/20 02/18/22 History tablet (Orazinc) duloxetine 60 mg capsule,delayed 120 mg PO QAM 01/31/21 02/18/22 History release (Cymbalta) albuterol sulfate 90 mcg/actuation 2 puff inhalation Q6H PRN 03/11/21 02/18/22 Rx aerosol inhaler shortness of breath or wheezing #3 Inhalers budesonide-formoterol HFA 160 2 puff inhalation BID #3 Inhalers 06/25/21 02/18/22 Rx mcg-4.5 mcg/actuation aerosol inhaler (Symbicort) artificial tears(hypromellose) 0.3 1 drp ophthalmic (eye) TID 09/18/21 02/18/22 History % eye gel (Systane Gel) fexofenadine 60 mg tablet 180 mg PO QAM 09/18/21 02/18/22 History furosemide 20 mg tablet 20 mg PO QAM 09/18/21 02/18/22 History peg 400-propylene glycol 0.4 %-0.3 1 drp ophthalmic (eye) TID 09/18/21 02/18/22 History % eye drops (Systane Ultra) docusate sodium 100 mg capsule 100 mg PO QAM 09/23/21 02/18/22 History magnesium 250 mg tablet 250 mg PO QAM 09/23/21 02/18/22 History cholecalciferol (vitamin D3) 25 25 mcg PO DAILY 11/10/21 02/18/22 History mcg (1,000 unit) tablet (Vitamin D3) prednisone 2.5 mg tablet 2.5 mg PO DAILY #90 tabs 11/26/21 02/18/22 Rx montelukast 10 mg tablet 10 mg PO HS #90 tabs 12/09/21 02/18/22 Rx gabapentin 300 mg capsule 300 mg PO HS 90 days #90 caps 12/16/21 02/18/22 Rx topiramate 50 mg tablet 100 mg PO BID 90 days #360 tabs 01/24/22 02/18/22 Rx famotidine 20 mg tablet 20 mg PO HS 02/07/22 02/18/22 History levothyroxine 75 mcg tablet 75 mcg PO DAILYBB 02/07/22 02/18/22 History pantoprazole 40 mg tablet,delayed 40 mg PO BID 02/07/22 02/18/22 History release rivaroxaban 20 mg tablet (Xarelto) 20 mg PO QPM 02/07/22 02/18/22 History Allergies Allergy/AdvReac Type Severity Reaction Status Date / Time aspirin Allergy Intermediate GI UPSET Verified 02/18/22 18:47 codeine Allergy Intermediate GI UPSET Verified 02/18/22 18:47 erythromycin base Allergy Intermediate GI UPSET Verified 02/18/22 18:47 Past Med/Surg History Medical History Anxiety Aortic valve insufficiency Moderate per 07/[address] 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, reports no residual deficits, no issues since Surgical History H/O sinus surgery H/O tubal ligation History of cholecystectomy History of esophagogastroduodenoscopy (EGD) (~2011) History of hysterectomy with unilateral oopherectomy- 1978 History of lumbar laminectomy 2000 History of orthopedic surgery rhizotomy- pt unsure about this S/P cataract surgery S/P ERCP Family History Mother Diabetes Ovarian cancer Hypertension Kidney disease Father Diabetes Cardiac disorder Hypertension Stroke Alcohol abuse Other specified hearing loss, bilateral Aunt Breast cancer Brother Cancer Alcohol abuse Daughter , peritonitis Alcohol abuse Anxiety Dementia Family/Other Depression Anxiety Other No significant family history Denies family history of Colorectal cancer Social History Smoking Status: Never smoker Second Hand Exposure: No; Hx Alcohol Use: No Hx Substance Use: No Preferred Language: Georgian Communication Ability: Effective Visual Impairment: Limited Hearing Ability: Normal Guest Services Manager Required: No Beliefs That Will Affect Care: None marital status: / Current Living Situation: Family Current Living Situation Comment: GRAND DAUGHTER AND SON WILL HELP current occupational status: retired How many Children do You have: 1 Feels Safe at Home: Yes Childhood Exposure to Second-Hand Smoke: No caffeine: No during the past year weight has: decreased > 10 lbs Dental Care, Regularly: Yes Physical Activity Frequency: 1-2 Times per Week Seatbelt Use: always Sunscreen Use: Yes Assistive Devices: None Review of Systems A total of 10 systems reviewed and were otherwise negative Physical Exam Vital Signs Vital Signs - 24 hr 02/18/22 16:49 02/18/22 20:34 02/18/22 20:35 Temperature 36.6 C Temperature Source Oral Pulse Rate 114 H Pulse Rate [Finger] 84 Respiratory Rate 20 18 Respiratory Effort / Characteristics Non-Labored Spontaneous Non-Labored Spontaneous Respiratory Depth Normal Normal Respiratory Pattern Regular Blood Pressure 122/67 Blood Pressure [Right Arm] 112/68 Blood Pressure Mean 85 Blood Pressure Mean [Right Arm] 82 Blood Pressure Position [Right Arm] Sitting Pulse Oximetry 99 93 93 Oxygen Delivery Method Room Air Room Air Room Air Oxygen Flow Rate Sepsis Recent Fever Within 48 Hours No Sepsis New/Unexplained Change in Mental Status No Sepsis Action Taken by Nursing No Action Required 02/18/22 22:03 02/18/22 22:04 Temperature Temperature Source Pulse Rate Pulse Rate [Finger] 80 80 Respiratory Rate 16 16 Respiratory Effort / Characteristics Non-Labored Spontaneous Non-Labored Spontaneous Respiratory Depth Normal Normal Respiratory Pattern Blood Pressure Blood Pressure [Right Arm] 96/58 L Blood Pressure Mean Blood Pressure Mean [Right Arm] 70 Blood Pressure Position [Right Arm] Lying Pulse Oximetry 87 L 93 Oxygen Delivery Method Room Air Nasal Cannula Oxygen Flow Rate 2 Sepsis Recent Fever Within 48 Hours Sepsis New/Unexplained Change in Mental Status Sepsis Action Taken by Nursing CONSTITUTIONAL/VITAL SIGNS: Reviewed / noted above. GENERAL: Non-toxic in appearance. Generalized weakness. INTEGUMENTARY: Warm, dry, and Cambalache. HEAD: Normocephalic. EYES: without scleral icterus or trauma. ENT/OROPHARYNX: clear and moist. LYMPHADENOPATHY/NECK: Is supple without lymphadenopathy or meningismus. RESPIRATORY: Diminished to auscultation bilaterally. No increased work of breathing. CARDIOVASCULAR: Regular rate and rhythm. GI/ABDOMEN: Soft and nontender. No organomegaly or pulsatile mass. EXTREMITIES: Warm and well perfused. BACK: No CVA tenderness. NEUROLOGICAL: Intact without focal deficits. PSYCHIATRIC: normal affect. MUSCULOSKELETAL: Normally developed with good muscle tone. TRIAGE NURSING DOCUMENTATION REVIEWED. Course Administered Medications Discontinued Medications Sodium Chloride (Nss 1000ml) 500 mls @ 999 mls/hr IV .Q31M ONE Stop: 02/18/22 17:32 Last Admin: 02/18/22 21:14 Dose: 999 mls/hr Documented By: INES Ioversol (Optiray 300 500ml) 102 ml IV ONCE ONE Stop: 02/18/22 21:45 Last Admin: 02/18/22 21:45 Dose: 102 ml Documented By: MASOUD Medical Decision Making Differential Diagnosis Differential includes acute coronary syndrome, myocardial infarction, CVA, TIA, anemia, infection, pneumonia, UTI, pyelonephritis, poor nutrition, dehydration, electrolyte disturbance,hypoglycemia. Medical Records Attestation: I reviewed the patient's medical records. Home Medications Current Medication List: was personally reviewed by me Laboratory Data Attestation: I reviewed the patient's lab results. Result diagrams: 02/18/22 18:45 02/18/22 19:30 Lab Results 02/18/22 02/18/22 02/18/22 Range/Units 18:45 18:45 19:30 WBC 9.60 (4.8-10.8) K/ul RBC 4.59 (3.93-5.22) M/uL Hgb 13.5 (12.0-16.0) g/dl Hct 40.1 (34.1-44.9) % MCV 87.4 (80.0-100.0) fL MCH 29.4 (25.0-34.0) pg MCHC 33.7 (32.0-36.0) g/dL RDW Std Deviation 46.3 (36.4-46.3) fL RDW Coeff of Sudha 14.5 (11.5-14.5) % Plt Count 358 (130-400) K/uL MPV 9.8 (9.4-12.3) fL Immature Gran % (Auto) 0.8 % Neut % (Auto) 76.5 % Lymph % (Auto) 11.7 % Shelby % (Auto) 8.6 % Eos % (Auto) 2.0 % Baso % (Auto) 0.4 % Neut # (Auto) 7.34 H (1.4-6.5) K/uL Lymph # (Auto) 1.12 L (1.2-3.4) K/uL Shelby # (Auto) 0.83 H (0.24-0.82) K/uL Eos # (Auto) 0.19 (0-0.50) K/uL Baso # (Auto) 0.04 (0-0.2) K/uL Immature Gran # (Auto) 0.08 H (0.00-0.02) K/uL PT Cancelled INR Cancelled APTT Cancelled PTT Ratio Cancelled Sodium 131 L (136-145) mmol/L Potassium 3.9 (3.5-5.1) mmol/L Chloride 97 L (98-107) mmol/L Carbon Dioxide 27 (21-32) mmol/L Anion Gap 7 (3-11) BUN 13 (6-23) mg/dl Creatinine 0.88 (0.6-1.2) mg/dl Est Cr Clr Drug Dosing Not Reportable Est GFR ( Amer) 71.4 ml/min Est GFR (Non-Af Amer) 61.6 ml/min BUN/Creatinine Ratio 14.8 (10-20) Glucose 120 H (70-99(Fasting)) mg/dl Calcium 8.6 (8.5-10.1) mg/dl Magnesium 2.0 (1.7-2.4) mg/dl Total Bilirubin 0.5 (0.2-1.0) mg/dl AST 25 (13-39) U/L ALT 22 (7-52) U/L Alkaline Phosphatase 61 (34-104) U/L Troponin I High Sens 26.1 H (0-14) pg/ml Total Protein 7.1 (6.0-8.3) gm/dl Albumin 3.5 (3.4-5.0) gm/dl Globulin 3.6 (2.5-4.0) gm/dl Albumin/Globulin Ratio 1.0 (0.9-2) SARS-CoV-2, RNA, NAAT (NEGATIVE) 02/18/22 02/18/22 Range/Units 19:30 20:38 WBC (4.8-10.8) K/ul RBC (3.93-5.22) M/uL Hgb (12.0-16.0) g/dl Hct (34.1-44.9) % MCV (80.0-100.0) fL MCH (25.0-34.0) pg MCHC (32.0-36.0) g/dL RDW Std Deviation (36.4-46.3) fL RDW Coeff of Sudha (11.5-14.5) % Plt Count (130-400) K/uL MPV (9.4-12.3) fL Immature Gran % (Auto) % Neut % (Auto) % Lymph % (Auto) % Shelby % (Auto) % Eos % (Auto) % Baso % (Auto) % Neut # (Auto) (1.4-6.5) K/uL Lymph # (Auto) (1.2-3.4) K/uL Shelby # (Auto) (0.24-0.82) K/uL Eos # (Auto) (0-0.50) K/uL Baso # (Auto) (0-0.2) K/uL Immature Gran # (Auto) (0.00-0.02) K/uL PT 11.9 INR 1.1 APTT 30.8 PTT Ratio 1.1 Sodium (136-145) mmol/L Potassium (3.5-5.1) mmol/L Chloride (98-107) mmol/L Carbon Dioxide (21-32) mmol/L Anion Gap (3-11) BUN (6-23) mg/dl Creatinine (0.6-1.2) mg/dl Est Cr Clr Drug Dosing Est GFR ( Amer) ml/min Est GFR (Non-Af Amer) ml/min BUN/Creatinine Ratio (10-20) Glucose (70-99(Fasting)) mg/dl Calcium (8.5-10.1) mg/dl Magnesium (1.7-2.4) mg/dl Total Bilirubin (0.2-1.0) mg/dl AST (13-39) U/L ALT (7-52) U/L Alkaline Phosphatase (34-104) U/L Troponin I High Sens (0-14) pg/ml Total Protein (6.0-8.3) gm/dl Albumin (3.4-5.0) gm/dl Globulin (2.5-4.0) gm/dl Albumin/Globulin Ratio (0.9-2) SARS-CoV-2, RNA, NAAT POSITIVE A* (NEGATIVE) Imaging Data Radiologist's Impression: Chest X-Ray 02/18/22 16:50 XR chest 1V portable CLINICAL HISTORY: Dyspnea TECHNIQUE: Single frontal radiograph of the chest was obtained. Comparison: Comparison is made to chest radiograph 02/07/2022 FINDINGS: No lines and tubes are seen. The cardiomediastinal silhouette is normal. Focal atelectasis is seen in the right lower lung. No evidence of pleural effusion or pneumothorax. IMPRESSION: No acute chest disease. ACT 112: Negative or not required by law. Electronically signed by: Shane Parra M.D. 02/18/2022 5:22 PM ECG Data Attestation: I personally reviewed and interpreted this ECG as follows: Additional Comments: Twelve-lead EKG: Per my interpretation shows a normal sinus rhythm at a rate of 82. T wave inversions anteriorly that are new compared to previous EKG. No ST elevations. No PVCs. Normal QTC. MDM Narrative Patient presents with decreased energy and generalized weakness as well as an ongoing cough that is worsening since having COVID 2 or 3 weeks ago. The patient's chest x-ray did not show acute process. A CT scan of the chest reveals no evidence of PE. Possibly bilateral lower lobe pneumonias in the appropriate clinical scenario. The patient does have worsening cough and fatigue. She did have some desaturations of her oxygen while in the ED in the 87 to 88% range. She did require 2 L of oxygen. She does not use oxygen at home. Twelve-lead EKG shows a normal sinus rhythm at a rate of 82 with some T wave inversions anteriorly that are new compared to previous EKG. The patient's troponin is slightly elevated. CBC was normal. Chemistry panel was unremarkab le. The patient was treated empirically with IV cefepime. She was given some IV fluids. She will be seen by the hospitalist for further evaluation and care. Impression & Plan Pneumonia of both lower lobes, Hypoxia, Elevated troponin, Generalized weakness, Acute electrocardiogram changes Discharge Plan Visit Data Chief Complaint: Shortness of Breath/Dyspnea Stated Complaint: SOB, BODY ACHES ED Provider: Eugene Lane Discharge Problem: Pneumonia of both lower lobes, Hypoxia, Elevated troponin, Generalized weakness, Acute electrocardiogram changes Patient Disposition: Being Evaluated by Hospitalist Forms Stand Alone Forms: My [facility] Prescriptions Prescriptions: No Action Orazinc 25 mg zinc (110 mg) tablet 25 mg PO DAILY montelukast 10 mg tablet 10 mg PO HS Qty: 90 3RF gabapentin 300 mg capsule 300 mg PO HS 90 Days Qty: 90 1RF topiramate 50 mg tablet 100 mg PO BID 90 Days Qty: 360 0RF latanoprost 0.005 % drops 1 drops OP QPM albuterol sulfate 90 mcg/actuation HFA aerosol inhaler 2 puff INH Q6H PRN (Reason: shortness of breath or wheezing) Qty: 3 3RF budesonide-formoterol [Symbicort] 160-4.5 mcg/actuation HFA aerosol inhaler 2 puff inhalation BID Qty: 3 3RF furosemide 20 mg tablet 20 mg PO QAM Systane Gel 0.3 % gel 1 drp ophthalmic (eye) TID Systane Ultra 0.4-0.3 % drops 1 drp ophthalmic (eye) TID prednisone 2.5 mg tablet 2.5 mg PO DAILY Qty: 90 3RF alendronate [Fosamax] 70 mg tablet 70 mg PO WK multivitamin Tablet 1 tab PO QAM trazodone 100 mg tablet 1 tab PO QPM tramadol 50 mg tablet 50 mg PO TID duloxetine [Cymbalta] 60 mg capsule,delayed release(DR/EC) 120 mg PO QAM fexofenadine 60 mg tablet 180 mg PO QAM dorzolamide-timolol 22.3-6.8 mg/mL drops 1 drp OPB BID cholecalciferol (vitamin D3) [Vitamin D3] 25 mcg (1,000 unit) Tablet 25 mcg PO DAILY docusate sodium 100 mg Capsule 100 mg PO QAM magnesium 250 mg Tablet 250 mg PO QAM famotidine 20 mg tablet 20 mg PO HS levothyroxine 75 mcg tablet 75 mcg PO DAILYBB Rx Instructions: TAKE 1 TABLET BY MOUTH DAILY Xarelto 20 mg tablet 20 mg PO QPM Rx Instructions: must administer with evening meal. DO NOT start until after the 2 weeks of 15 mg twice a day dosing. pantoprazole 40 mg tablet,delayed release (DR/EC) 40 mg PO BID Rx Instructions: Take 1 tablet by mouth twice daily Referrals Referrals: Dalton Rendon MD [Primary Care Provider] -
--- NOTE | 2022-02-18 22:39 | History & Physical Report ---
Date of Service February 18, 2022 Assessment & Plan (1) Hypoxia: Plan: This is an 81-year-old female with a history of recent admission secondary to COVID-19, prior PE on Xarelto, migraines, chronic fatigue syndrome with fibromyalgia, exertional dyspnea with pHTN, cerebrovascular disease, PMR on prednisone, osteoporosis, asthma, hypothyroidism, GERD, choledocholithiasis s/p ERCP w/ stent placement and sphincterotomy in 10/2021 and subsequent removal in 01/2022 with postprocedural course complicated by GIB who presented to [facility] for evaluationfor worsening weakness and frequent cough. Cough / Mild Hypoxia - Frequent dry and non-productive cough that has been present and worsening slightly since last hospital discharge when she had COVID-19 - Work-up as follows: - CTA-Chest: "Scattered airspace of opacities in the lungs bilaterally. Mucous plugging in the right lower lobe" - CBCd: Relative neutrophilia, lymphopenia, monocytosis with elevated granulocytes - Procal, CRP, BNP pending - Mildly elevated troponin 26.1 on arrival - history of elevated troponins during each admission; minor TWAs on anterior precordial leads - COVID19 *PCR* positive - unsurprising given recent diagnosis - can stay po sitive for 60+ days - Primarily suspect postviral cough with possible contributions from secondary atypical pneumonia vs. re-infection with COVID-19 - Monitor on [employer] with continuous pulse oximetry, goal SpO2 >92% - Will empirically continue cefepime and add azithromycin until clinical course is clarified - COVID-19 retesting: recommend reaching out to antimicrobial stewardship pharmacist in the AM to gauge thoughts on repeating an antigen-based test --> Will keep on isolation precautions for now - Recheck CRP, procalcitonin in the AM - DuoNebs PRN - Cough: schedule Tessalons, Hycoden PRN (2) Generalized weakness: Plan: Weakness - Likely post-COVID related and secondary to the above alongside hyponatremia - No new chest pain, GI symptoms, urinary symptoms, skin rashes, bone pain - Will add blood cultures and urine studies to clarify picture -- ABX ongoing as above - HOLD: trazodone, tramadol, fexofenadine for now given possible RX contribution - PT, OT will be consulted - NSS @ 100cc/hr x 1L (3) Elevated troponin: Plan: Elevated Troponin - Elevated on arrival to 25. No chest pain. Check once more. - History of elevated troponins during each admission Dobutamine stress TTE 08/2020 (per PCP note): "normal wall motion response to dobutamine. Negative for dobutamine induced ischemia > 100% MPHR." (4) Pulmonary embolism: Plan: History of PE - Noted. Continue Xarelto (5) Polymyalgia rheumatica: Plan: Fibromyalgia/polymyalgia rheumatica Follows with Dr. Nunez - Rheumatology Continue low-dose prednisone -- believe we can hold on stress dosing right now Continue duloxetine, gabapentin Continue tramadol and appropriate (6) Pulmonary hypertension: Plan: Pulmonary HTN / Exertional dyspnea Chronic. Follows with [facility] cardiology for pHTN. Continue spironolactone, furosemide 20 mg daily TTE 07/2021 demonstrating severely elevated pulmonary artery pressure, estimated PASP 79 mmHg (7) Asthma: Plan: Asthma Follows with [facility] A&I Continue Singulair, Symbicort, albuterol as needed (8) Hypothyroid: Plan: Hypothyroidism Continue levothyroxine (9) Chronic pain: Plan: Chronic headache syndrome Continue topiramate (10) GERD (gastroesophageal reflux disease): Plan: GERD Continue pantoprazole 40mg b.i.d. Increase famotidine to 40mg daily Maalox p.r.n. (11) Moderate aortic insufficiency: Plan: Aortic Insufficiency Last TTE 07/2021 at [facility]: Moderate central aortic insufficiency (PHT 438 MS) Follows with [facility], Dr. Herrera Plan Code: Full code Dispo: MedSurg with telemetry Prophylaxis: Xarelto Diet: Heart healthy History of Present Illness Primary Care Provider: Dalton Rendon MD This is an 81-year-old female with a history of recent admission secondary to COVID-19, prior PE on Xarelto, migraines, chronic fatigue syndrome with fibromyalgia, exertional dyspnea with pHTN, cerebrovascular disease, PMR on prednisone, osteoporosis, asthma, hypothyroidism, GERD, choledocholithiasis s/p ERCP w/ stent placement and sphincterotomy in 10/2021 and subsequent removal in 01/2022 with postprocedural course complicated by GIB who presented to [facility] for evaluationfor worsening weakness and cough. Patient says that since her last hospitalization, she has been getting progressively weaker. She feels like she does not have any energy. She also says that her cough is continued, and gotten little worse. She says that her appetite has not been too bad, but she has had some decreased p.o. intake. She denies any new fevers, chills, sweats. Denies any productive sputum. She denies any difficulties with sleepingshe says that she is able to get the cough to "calm down". She denies any new belly pain, nausea, vomiting, diarrhea, urinary symptoms. She denies any new or changes in medications since her last visit. She continues taking prednisone as prescribed. She continues taking Xarelto as prescribed Of note, patient was recently discharged from [facility] on 02/09; she was briefly hospitalized secondary to AHRF secondary to COVID-19 PNA and weakness. She was treated with dexamethasone in the hospital; remdesivir was deferred due to MARIANO. She was discharged on her home prednisone. Medications reviewed and include albuterol, alendronate, budesonideformoterol, vitamin D, docusate sodium, duloxetine 120 mg, famotidine, fexofenadine, furosemide, gabapentin, levothyroxine, magnesium, montelukast, multivitamin, Protonix, prednisone 2.5 mg daily, topiramate 100 mg twice daily, tramadol 50 mg 3 times daily, trazodone, Xarelto. In the ER, patient was found to be tachycardic to 114 with otherwise normal vital signs; respiratory rate on arrival was 20, SPO2 was 99%. She did have 1 event in the ER where she desaturated to 87% and she was subsequently placed on nasal cannula. Admission labs revealing for normal white count, normal hemoglobin, relative neutrophilia/monocytosis/lymphopenia, normal coagulation studies, mild hyponatremia 131, normal LFTs, mildly elevated troponin 26.1, COVID-19 NAAT positive. CTA-Chest STAT-Rad: " The pulmonary arteries within the right middle and right lower lobe are attenuated and truncated which can be seen as a sequela of chronic PE. Scattered airspace of opacities in the lungs bilaterally. Mucous plugging in the right lower lobe." ECG demonstrating some T wave abnormalities in V2, V3. She was given cefepime and normal saline. --- This documentation was created utilizing dictation software. As such, syntax, grammatical, and word-choice errors may be present. Notes are screened prior to submission in an attempt to reduce these errors. If there are any questions or concerns, please contact the author directly for clarification. Allergies Allergy/AdvReac Type Severity Reaction Status Date / Time aspirin Allergy Intermediate GI UPSET Verified 02/18/22 18:47 codeine Allergy Intermediate GI UPSET Verified 02/18/22 18:47 erythromycin base Allergy Intermediate GI UPSET Verified 02/18/22 18:47 Home Medications Medication Instructions Recorded Confirmed Type multivitamin 1 tab PO QAM 06/10/18 02/18/22 History trazodone 100 mg tablet 1 tab PO QPM 06/10/18 02/18/22 History tramadol 50 mg tablet 50 mg PO TID 02/13/19 02/18/22 History latanoprost 0.005 % eye drops 1 drops ophthalmic (eye) QPM 03/03/19 02/18/22 History alendronate 70 mg tablet (Fosamax) 70 mg PO WK 01/17/20 02/18/22 History dorzolamide 22.3 mg-timolol 6.8 1 drp OPB BID 10/07/20 02/18/22 History mg/mL eye drops zinc sulfate 25 mg zinc (110 mg) 25 mg PO DAILY 12/11/20 02/18/22 History tablet (Orazinc) duloxetine 60 mg capsule,delayed 120 mg PO QAM 01/31/21 02/18/22 History release (Cymbalta) albuterol sulfate 90 mcg/actuation 2 puff inhalation Q6H PRN 03/11/21 02/18/22 Rx aerosol inhaler shortness of breath or wheezing #3 Inhalers budesonide-formoterol HFA 160 2 puff inhalation BID #3 Inhalers 06/25/21 02/18/22 Rx mcg-4.5 mcg/actuation aerosol inhaler (Symbicort) artificial tears(hypromellose) 0.3 1 drp ophthalmic (eye) TID 09/18/21 02/18/22 History % eye gel (Systane Gel) fexofenadine 60 mg tablet 180 mg PO QAM 09/18/21 02/18/22 History furosemide 20 mg tablet 20 mg PO QAM 09/18/21 02/18/22 History peg 400-propylene glycol 0.4 %-0.3 1 drp ophthalmic (eye) TID 09/18/21 02/18/22 History % eye drops (Systane Ultra) docusate sodium 100 mg capsule 100 mg PO QAM 09/23/21 02/18/22 History magnesium 250 mg tablet 250 mg PO QAM 09/23/21 02/18/22 History cholecalciferol (vitamin D3) 25 25 mcg PO DAILY 11/10/21 02/18/22 History mcg (1,000 unit) tablet (Vitamin D3) prednisone 2.5 mg tablet 2.5 mg PO DAILY #90 tabs 11/26/21 02/18/22 Rx montelukast 10 mg tablet 10 mg PO HS #90 tabs 12/09/21 02/18/22 Rx gabapentin 300 mg capsule 300 mg PO HS 90 days #90 caps 12/16/21 02/18/22 Rx topiramate 50 mg tablet 100 mg PO BID 90 days #360 tabs 01/24/22 02/18/22 Rx famotidine 20 mg tablet 20 mg PO HS 02/07/22 02/18/22 History levothyroxine 75 mcg tablet 75 mcg PO DAILYBB 02/07/22 02/18/22 History pantoprazole 40 mg tablet,delayed 40 mg PO BID 02/07/22 02/18/22 History release rivaroxaban 20 mg tablet (Xarelto) 20 mg PO QPM 02/07/22 02/18/22 History Past Med/Surg History Medical History (Updated 02/19/22 @ 17:02 by Quentin Delgadillo PA-C) Anxiety Aortic valve insufficiency Moderate per 07/[address] 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, reports no residual deficits, no issues since Surgical History H/O sinus surgery H/O tubal ligation History of cholecystectomy History of esophagogastroduodenoscopy (EGD) (~2011) History of hysterectomy with unilateral oopherectomy- 1978 History of lumbar laminectomy 2000 History of orthopedic surgery rhizotomy- pt unsure about this S/P cataract surgery S/P ERCP Family History Mother Diabetes Ovarian cancer Hypertension Kidney disease Father Diabetes Cardiac disorder Hypertension Stroke Alcohol abuse Other specified hearing loss, bilateral Aunt Breast cancer Brother Cancer Alcohol abuse Daughter , peritonitis Alcohol abuse Anxiety Dementia Family/Other Depression Anxiety Other No significant family history Denies family history of Colorectal cancer Social History Smoking Status: Never smoker Second Hand Exposure: No; Hx Alcohol Use: No Hx Substance Use: No Preferred Language: Greek Communication Ability: Effective Visual Impairment: Limited Hearing Ability: Normal Police Communications Dispatcher Required: No Beliefs That Will Affect Care: None marital status: / Current Living Situation: Family Current Living Situation Comment: GRAND DAUGHTER AND SON WILL HELP current occupational status: retired How many Children do You have: 1 Feels Safe at Home: Yes Childhood Exposure to Second-Hand Smoke: No caffeine: No during the past year weight has: decreased > 10 lbs Dental Care, Regularly: Yes Physical Activity Frequency: 1-2 Times per Week Seatbelt Use: always Sunscreen Use: Yes Assistive Devices: Cane and Walker Review of Systems Review of Systems: as per HPI Physical Exam Physical Exam: General: 81-year old F who is alert, oriented, though appears tired and has a frequent non-productive cough. HEENT: NCAT. - Eyes - Sclera are white, anicteric, and without injection. - Mouth - MMM - Neck - supple, no appreciable JVD Cardiac: Normal rate and regular rhythm; S1 and S2 present with no murmurs, rubs, or gallops. Pulmonary: Good respiratory effort with symmetric expansion of the chest. No use of accessory muscles. +Frequent cough. Lungs were clear to auscultation bilaterally with diminished sounds at R base compared to L. Abdominal: Normoactive bowel sounds. Abdomen was soft, nondistended, and non-tender to palpation. Extremities: Upper and lower extremities are warm and well perfused. 1+ peripheral edema in the lower extremities bilaterally Psych: Well-developed, well-nourished, appropriately dressed for occasion. Behavior is cooperative and appropriate. Affect is WNL. Insight is appropriate. Results & Data Results & Data ([facility]) Vital Signs (Past 12 Hours) Vital Signs Temp Pulse Pulse Resp BP BP Pulse Ox 02/18/22 22:04 80 16 96/58 L 93 02/18/22 22:03 80 16 87 L 02/18/22 20:35 93 02/18/22 20:34 84 18 112/68 93 02/18/22 16:49 36.6 C 114 H 20 122/67 99 O2 Del Method O2 Flow Rate 02/18/22 22:04 Nasal Cannula 2 02/18/22 22:03 Room Air 02/18/22 20:35 Room Air 02/18/22 20:34 Room Air 02/18/22 16:49 Room Air Supervising Physician Co-Signing Physician Notes Attending addendum: I have physically seen this patient, have supervised the medical residents ac tivities, and agree with the H&P unless as otherwise noted. Assessment and Plan: Acute respiratory failure with hypoxia/COVID-19 infection/secondary bacterial pneumonia- Cefepime 2 g IV every 12 hours Azithromycin 500 mg IV daily Guaifenesin extended release 12 mg p.o. twice daily Vitamin D 5000 international units p.o. daily Albuterol HFA 2 puffs 4 times daily DuoNebs every 2 hours as needed Elevated troponin- Troponin 26.1 The patient will be admitted to telemetry for serial cardiac enzymes, serial EKG's, cardiac rhythm monitoring and a 2-D echocardiogram with Dopplers. Likely supply demand mismatch, versus contribution from pulmonary hypertension PE history- Continue Xarelto Fibromyalgia/PMR- On low-dose prednisone, duloxetine, tramadol and gabapentin We have low threshold for stress testing Generalized weakness- Multifactorial Again consider stress testing steroids if persistent Resident Activity Tracking Resident Involvement: Resident Care Provided Care Provided: Adult Hospital Medicine (1) Chronic pain Chronic pain type: other chronic pain Qualified Code(s): G89.29 - Other chronic pain (2) GERD (gastroesophageal reflux disease) Esophagitis presence: esophagitis presence not specified Qualified Code(s): K21.9 - Gastro-esophageal reflux disease without esophagitis (3) Asthma Asthma complication type: uncomplicated Asthma persistence: intermittent Asthma severity: mild Qualified Code(s): J45.20 - Mild intermittent asthma, uncomplicated
[2022-02-19] MEDS ORDERED: MoRPHine SULFATE 5 MG/0.25 ML UDP PO STA (01:19)
[2022-02-19] MEDS ORDERED: ALBUT/IPRATROP 3MG/0.5MG NEB 3 ML VIAL NEB PRN (01:39)
[2022-02-19] MEDS ORDERED: ALBUTEROL HFA 8 GM INHALER INH PRN (01:39)
[2022-02-19] MEDS ORDERED: SODIUM CHLORIDE 0.9% 1000ML 1,000 ML IV SCH (01:39)
[2022-02-19] MEDS ORDERED: HYDROcodone/HOMATROPINE SYRUP 5MG/1.5MG 5ML UDP PO PRN (01:39)
[2022-02-19] MEDS: LEVOTHYROXINE SODIUM 75 MCG TABLET PO SCH (06:31)
--- NOTE | 2022-02-19 07:28 | CT Scan Report ---
CT angio chest PE protocol CLINICAL HISTORY: Dyspnea, recent PE, tachycardia TECHNIQUE: Multidetector row helical CT of the chest was performed with angiographic protocol. Mcelroy l and sagittal reformations were obtained. Coronal and sagittal MIPS were obtained from the axial shalha a set and were submitted for review. Automated dose lowering techniques and/or adjustment according to patient size were utilized for this exam. CT DOSE: 252.17 mGy.cm Comparison: Comparison is made to CT chest 04/05/2019 FINDINGS: Lungs and pleura: Interval development of groundglass opacities in the bilateral upper lobes and cons olidation in the right lower lobe. Atelectasis versus scarring is in the left lower lobe. Mucous plug ging is noted. Heart and pericardium: Heart size is normal. No pericardial effusion. Vessels: No evidence of pulmonary embolism. Partially occlusive pulmonary emboli in the segmental art eries. Mediastinum and sulaiman: Right greater than left hilar lymph nodes. Chest wall and lower neck: Unremarkable. Abdomen: Unremarkable. Bones: Unremarkable. IMPRESSION: 1. Multiple partially occlusive pulmonary emboli in the segmental arteries bilaterally. No right hea rt strain is seen. 2. Groundglass opacities in the bilateral upper lobes may reflect infectious/inflammatory process. P rominent hilar lymph nodes are likely reactive. 3. Consolidation in the right lower lobe may represent pneumonia, aspiration, and/or pulmonary infar ct. 4. Atelectasis in the left lower lobe. ACT 112: Negative or not required by law. Electronically signed by: Shane Parra M.D. 02/19/2022 7:26 AM
[2022-02-19] MEDS: DORZOLAMIDE/TIMOLOL 22.3/6.8MG/ML 10 ML BTL OPB SCH ×2 (07:52→21:10)
[2022-02-19] MEDS: CEFEPIME 2,000 MG in SYRINGE 0 ML IV SCH ×2 (07:52→21:04)
[2022-02-19] MEDS: ARTIFICIAL TEARS OP SCH ×3 (07:53→21:30)
[2022-02-19] MEDS: BENZONATATE 100 MG CAPSULE PO SCH ×3 (07:55→21:10)
[2022-02-19] MEDS: DOCUSATE SODIUM 100 MG CAP PO SCH (07:56)
[2022-02-19] MEDS: CHOLECALCIFEROL 1,000 UNITS 25 MCG TAB PO SCH (07:56)
[2022-02-19] MEDS: DULoxetine HCL 60 MG CAP PO SCH (07:57)
[2022-02-19] MEDS: FLUTICASONE/VILANTEROL 200/25MCG 14 PUFFS/INHALER INH SCH (07:57)
[2022-02-19] MEDS: TOPIRAMATE 100 MG TAB PO SCH ×2 (07:58→21:10)
[2022-02-19] MEDS: PANTOprazole 40 MG TAB PO SCH ×2 (07:58→21:09)
[2022-02-19 08:00] LABS: Basophils # (auto) 0.04 K/uL (0-0.2); Basophils % (auto) 0.6 %; Eosinophils # (auto) 0.22 K/uL (0-0.50); Eosinophils % (auto) 3.4 %; Hematocrit (blood only) 34.1 % (34.1-44.9); Hemoglobin 11.5 g/dl (12.0-16.0); Immature Granulocytes # (auto) 0.06 K/uL (0.00-0.02); Immature Granulocytes % (auto) 0.9 %; Lymphocytes # (auto) 1.46 K/uL (1.2-3.4); Lymphocytes % (auto) 22.8 %; Mean Corpuscular Hemoglobin 29.2 pg (25.0-34.0); Mean Corpuscular Hgb Conc 33.7 g/dL (32.0-36.0); Mean Corpuscular Volume 86.5 fL (80.0-100.0); Mean Platelet Volume 9.9 fL (9.4-12.3); Monocytes # (auto) 0.83 K/uL (0.24-0.82); Monocytes % (auto) 12.9 %; Neutrophils % (auto) 59.4 %; Platelet Count 334 K/uL (130-400); RDW Coefficient of Variation 14.6 % (11.5-14.5); Red Blood Count 3.94 M/uL (3.93-5.22); White Blood Count 6.41 K/ul (4.8-10.8)
[2022-02-19 08:37] LABS: Albumin Globulin Ratio 0.9 (0.9-2); Albumin Level 2.8 gm/dl (3.4-5.0); BUN Creatinine Ratio 15.3 (10-20); Bilirubin,Total 0.4 mg/dl (0.2-1.0); C Reactive Protein 9.06 mg/dl (0-0.5); Calcium 7.8 mg/dl (8.5-10.1); Creatinine Clr Calc Pharmacy 42.9 ml/min; Est GFR (Non-African American) 78.5 ml/min; Potassium 3.5 mmol/L (3.5-5.1); Total Protein 5.8 gm/dl (6.0-8.3)
[2022-02-19] MEDS ORDERED: NON-FORMULARY MEDICATION (Peg 400-Propylene Glycol [Systane Ultra] 0.4-0.3 % drops) OP SCH (09:00)
[2022-02-19] MEDS ORDERED: predniSONE 2.5 MG TAB PO SCH (09:00)
[2022-02-19] MEDS ORDERED: FUROSEMIDE 20 MG TAB PO SCH (09:00)
[2022-02-19] MEDS ORDERED: AZITHROMYCIN 500 MG in DEXTROSE 5% 250 ML IV SCH (09:00)
[2022-02-19] MEDS: guaiFENesin 600 MG TABCR PO SCH ×2 (11:39→21:09)
--- NOTE | 2022-02-19 12:40 | Hospitalist Progress Note ---
Date of Service February 19, 2022 Assessment & Plan (1) Pneumonia of both lower lobes: Plan: Continue cefepime and azithromycin, day 2. Obtain sputum culture if sputum is produced. Await pulmonary medicine consultation. Serial chest x-ray (2) Hypoxia: Plan: Continue oxygen per nasal cannula to maintain saturation greater than 90%. Treat underlying pulmonary problems. Wean off as tolerated (3) Elevated troponin: Plan: Telemetry. She does not appear to have suffered an acute NE. We will follow (4) Generalized weakness: Plan: OT and PT assessments requested (5) Anxiety and depression: Plan: Continue current medical management (6) Polymyalgia rheumatica: Plan: Steroid-dependent. Stable Plan To be determined Admission and Anticipated Discharge Date Admission Date: February 18, 2022 Subjective Alert and oriented. Pleasant. Awaiting pulmonary medicine consultation regarding the finding of mucous plugging contributing to her hypoxia. She may need bronchoscopy performed. She remains on intravenous antibiotic coverage. Current oxygen requirements are 4 L. OT and PT assessments requested Review of Systems Review of Systems: Constitutional-no fever or chills ENT-no blurred vision, no double vision, no epistaxis, no sore throat Respiratory-dyspnea on exertion. No hemoptysis. No pleuritic pain. Persistent nonproductive cough Cardiac-no palpitations, no chest pain, no syncope GI-no nausea, vomiting, diarrhea, melena, hematochezia -no urinary retention, no urinary incontinence, no dysuria, no hematuria Musculoskeletal-no joint pain, no muscle tenderness Skin-no bruising, no rashes, no pruritus Neuro-no isolated weakness, no paresthesia, no weakness Psych-no depression, no anxiety Physical Exam Physical Exam: General-alert and oriented x3, no fevers, no chills HEENT-head atraumatic and normocephalic, pupils equal and reactive to light, extraocular muscles intact Neck-no lymphadenopathy or thyromegaly, trachea midline Chest-diminished breath sounds bilaterally. Scattered bilateral rhonchi. No wheezing. Cardiac-regular rate and rhythm, normal S1 and S2, no murmurs Abdomen-normal bowel sounds, nontender, no hepatosplenomegaly Extremities-no cyanosis, clubbing, or edema Neuro-cranial nerves II through XII intact, motor and sensory function within normal limits, strength symmetrical , no focal deficits Psych-normal affect, normal mood Results & Data Results & Data ([place]) Vital Signs (Past 12 Hours) Vital Signs Temp Pulse Pulse Resp BP Pulse Ox Pulse Ox 02/19/22 11:37 36.3 C L 78 18 103/65 98 02/19/22 08:00 02/19/22 08:00 02/19/22 07:46 36.7 C 78 18 99/62 L 95 02/19/22 05:00 36.6 C 80 16 136/78 92 02/19/22 04:17 02/19/22 01:50 85 02/19/22 01:39 93 02/19/22 01:40 36.4 C L 89 20 147/81 H 99 O2 Del Method O2 Del Method O2 Flow Rate O2 Flow Rate 02/19/22 11:37 Nasal Cannula 4 02/19/22 08:00 Nasal Cannula 4 02/19/22 08:00 Nasal Cannula 4 02/19/22 07:46 Nasal Cannula 4 02/19/22 05:00 02/19/22 04:17 Nasal Cannula 4 02/19/22 01:50 02/19/22 01:39 Nasal Cannula 6 02/19/22 01:40 Nasal Cannula 6 Laboratory Results 02/19/22 07:20 02/19/22 07:20 PG Care Time/CCT Total # of Minutes Spent Total Time Spent with Patient: Total time spent is greater than 50% in coordination of care (as documented) at patient's floor/unit and/or counseling patient: Coding Level of Care Code 08923 Subseq Hosp Care Lvl 3 Diagnoses Pneumonia of both lower lobes J18.9 Hypoxia R09.02 Elevated troponin R77.8 Generalized weakness R53.1 Anxiety and depression F41.9; F32.A Polymyalgia rheumatica M35.3
[2022-02-19] MEDS ORDERED: ACETAMINOPHEN 1,000 MG/100 ML VIAL IV STA (13:13)
[2022-02-19] MEDS ORDERED: ONDANSETRON INJ 2 MG/ML 2 ML VIAL IV PRN (13:13)
--- NOTE | 2022-02-19 13:16 | Pulmonary Consultation ---
Date of Consultation February 19, 2022 Assessment & Plan (1) Hypoxia: (2) Headache: (3) Cough: (4) AYE (obstructive sleep apnea): (5) COVID-19: Plan Attending: Dr. Humphrey This is an 81-year-old female recently admitted for COVID-pneumonia. She was discharged home and seem to be doing better when she started develop increased shortness of breath and cough. Yesterday her granddaughters felt that she was declining and brought her to the emergency department for evaluation. She was admitted and placed on isolation precautions for COVID-19. Patient continues with paroxysms of cough. CT scan identified right lower lobe mucous plugging. Patient was not started on any pulmonary toilet up till now. Patient denies any fever or chills. She does state that with increased coughing, she develops a warm feeling but that resolves. Chronically anticoagulated on rivar oxaban. Patient is also on prednisone 2.5 mg p.o. daily for her rheumatoid arthritis. Recommendations: 1. Hypoxia: * Most likely secondary to mucous plugging and post COVID syndrome * Continue with supplemental oxygen to maintain SaO2 greater than 92%. * Patient is a lifelong non-smoker with no prior history of pulmonary disease * Continue to treat post COVID syndrome with steroids. * Will provide pulmonary toilet to assist with mucus secretion * Continue to follow oxygenation per protocol 2. COVID-19: * 1st positive 02/07/2022 * Also positive 02/18/2022. This is most likely secondary to previous infection and has not a new variant of COVID-19 * Continue isolation protocol per infection control * No indication for remdesivir or other antiviral treatment as patient has been positive for greater than 10 days * Will continue with steroids as patient is chronically on 2.5 mg of prednisone daily for her rheumatoid arthritis * Can convert prednisone from home dose to 40 mg p.o. daily due to scattered bronchospasm on exam * Continue supportive care * Procalcitonin was - 02/18/2022 and 02/19/2022. Blood cultures are pending. Antibiotics per primary service 3. Mucous plugging: * Incidental finding on CT scan. There is not complete opacification of any lobe of the lung * Continue aggressive pulmonary toilet with flutter valve 4 times daily, nebulizer treatments, and Mucinex 1200 mg p.o. twice daily * Encourage patient to be out of bed to chair and walk around room as tolerated * Flutter valve use at bedside and patient had immediate production of clear sputum. No evidence of hemoptysis * Would hold cough suppressant during the day. Okay to give cough suppressant at night to allow patient to rest * Repeat chest x-ray in the morning * No indication for bronchoscopy at this time Thank you very much for including us in the care of this patient. Please refer to Dr. Humphrey's addendum for further recommendations and corrections. History of Present Illness Reason for Consultation: Mucous plug, COVID, Hypoxia Requesting Physician: Dr. Herrera Attending Physician: Jamie Herrera MD History of Present Illness Pending: Dr. Humphrey This is an 81-year-old female that presents with shortness of breath and cough is most likely associated with recent COVID infection. She was admitted 02/07/2022 and started on dexamethasone 6 mg IV daily. She did not receive remdesivir at that time secondary to mild MARIANO. Procalcitonin was negative. Patient with chronic pulmonary emboli and anticoagulated with Xarelto. Patient was discharged on 02/09/2022. Per the patient's son who is with her today, patient had increasing cough and shortness of breath. The patient has 2 granddaughters who live with her at home. They felt that she was considerably worsening and referred her for evaluation and treatment. In the emergency department, she reported that she did not have energy to do anything. She also states that she has had a an increasing nonproductive cough over the last 2 to 3 weeks. She has had decreased appetite since COVID. She also had a slightly elevated troponin at 25. Chief complaint this admission is shortness of breath and cough. Patient been placed on supplemental oxygen and is currently 4 L/min via nasal cannula and saturating above 94%. Patient was prescribed benzonatate (Tessalon Perles) for cough on a scheduled basis as well as Hycodan syrup as needed. CT scan of the chest reveals scattered airspace opacities bilaterally. It is also mention that the patient has mucous plugging in the right lower lobe. Patient has not been started on any pulmonary toileting other than albuterol nebulizer treatments and admission. She was started on cefepime and azithromycin in the emergency department. Procalcitonin was 0.08 ng/mL yesterday and 0.05 ng/mL today. Patient is afebrile. Labs are generally balanced with WBC of 6.41. Patient reports that chief complaint is cough and general malaise. She states that she has no energy to walk or do anything around home. She did develop a post COVID cough which has been pretty significant throughout the day and night. She reports that she has very little production of any sputum. Was sputum she has coughed up has been clear. She is developing some chest pain which is associated with her forced cough. She had no vomiting at home and no aspiration. She denies any diarrhea. Patient is fairly comfortable at rest. She has no other acute complaints at this time Allergies Allergy/AdvReac Type Severity Reaction Status Date / Time aspirin Allergy Intermediate GI UPSET Verified 02/18/22 18:47 codeine Allergy Intermediate GI UPSET Verified 02/18/22 18:47 erythromycin base Allergy Intermediate GI UPSET Verified 02/18/22 18:47 Home Medications Medication Instructions Recorded Confirmed Type multivitamin 1 tab PO QAM 06/10/18 02/18/22 History trazodone 100 mg tablet 1 tab PO QPM 06/10/18 02/18/22 History tramadol 50 mg tablet 50 mg PO TID 02/13/19 02/18/22 History latanoprost 0.005 % eye drops 1 drops ophthalmic (eye) QPM 03/03/19 02/18/22 History alendronate 70 mg tablet (Fosamax) 70 mg PO WK 01/17/20 02/18/22 History dorzolamide 22.3 mg-timolol 6.8 1 drp OPB BID 10/07/20 02/18/22 History mg/mL eye drops zinc sulfate 25 mg zinc (110 mg) 25 mg PO DAILY 12/11/20 02/18/22 History tablet (Orazinc) duloxetine 60 mg capsule,delayed 120 mg PO QAM 01/31/21 02/18/22 History release (Cymbalta) albuterol sulfate 90 mcg/actuation 2 puff inhalation Q6H PRN 03/11/21 02/18/22 Rx aerosol inhaler shortness of breath or wheezing #3 Inhalers budesonide-formoterol HFA 160 2 puff inhalation BID #3 Inhalers 06/25/21 02/18/22 Rx mcg-4.5 mcg/actuation aerosol inhaler (Symbicort) artificial tears(hypromellose) 0.3 1 drp ophthalmic (eye) TID 09/18/21 02/18/22 History % eye gel (Systane Gel) fexofenadine 60 mg tablet 180 mg PO QAM 09/18/21 02/18/22 History furosemide 20 mg tablet 20 mg PO QAM 09/18/21 02/18/22 History peg 400-propylene glycol 0.4 %-0.3 1 drp ophthalmic (eye) TID 09/18/21 02/18/22 History % eye drops (Systane Ultra) docusate sodium 100 mg capsule 100 mg PO QAM 09/23/21 02/18/22 History magnesium 250 mg tablet 250 mg PO QAM 09/23/21 02/18/22 History cholecalciferol (vitamin D3) 25 25 mcg PO DAILY 11/10/21 02/18/22 History mcg (1,000 unit) tablet (Vitamin D3) prednisone 2.5 mg tablet 2.5 mg PO DAILY #90 tabs 11/26/21 02/18/22 Rx montelukast 10 mg tablet 10 mg PO HS #90 tabs 12/09/21 02/18/22 Rx gabapentin 300 mg capsule 300 mg PO HS 90 days #90 caps 12/16/21 02/18/22 Rx topiramate 50 mg tablet 100 mg PO BID 90 days #360 tabs 01/24/22 02/18/22 Rx famotidine 20 mg tablet 20 mg PO HS 02/07/22 02/18/22 History levothyroxine 75 mcg tablet 75 mcg PO DAILYBB 02/07/22 02/18/22 History pantoprazole 40 mg tablet,delayed 40 mg PO BID 02/07/22 02/18/22 History release rivaroxaban 20 mg tablet (Xarelto) 20 mg PO QPM 02/07/22 02/18/22 History Patient History Medical History (Updated 02/19/22 @ 17:02 by Quentin Delgadlilo PA-C) Anxiety Aortic valve insufficiency Moderate per 07/[address] 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, reports no residual deficits, no issues since Surgical History H/O sinus surgery H/O tubal ligation History of cholecystectomy History of esophagogastroduodenoscopy (EGD) (~2011) History of hysterectomy with unilateral oopherectomy- 1978 History of lumbar laminectomy 2000 History of orthopedic surgery rhizotomy- pt unsure about this S/P cataract surgery S/P ERCP Family History Mother Diabetes Ovarian cancer Hypertension Kidney disease Father Diabetes Cardiac disorder Hypertension Stroke Alcohol abuse Other specified hearing loss, bilateral Aunt Breast cancer Brother Cancer Alcohol abuse Daughter , peritonitis Alcohol abuse Anxiety Dementia Family/Other Depression Anxiety Other No significant family history Denies family history of Colorectal cancer Social History Smoking Status: Never smoker Second Hand Exposure: No; Hx Alcohol Use: No Hx Substance Use: No Preferred Language: Cypriot Communication Ability: Effective Visual Impairment: Limited Hearing Ability: Normal 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 Beliefs That Will Affect Care: None marital status: / Current Living Situation: Family Current Living Situation Comment: GRAND DAUGHTER AND SON WILL HELP current occupational status: retired How many Children do You have: 1 Feels Safe at Home: Yes Childhood Exposure to Second-Hand Smoke: No caffeine: No during the past year weight has: decreased > 10 lbs Dental Care, Regularly: Yes Physical Activity Frequency: 1-2 Times per Week Seatbelt Use: always Sunscreen Use: Yes Assistive Devices: Cane and Walker Review of Systems Review of Systems: A total of 10 systems was reviewed and is negative other than as listed in the HPI Physical Exam Physical Exam: GENERAL : Patient appears ill. EYES: No icterus, gaze conjugate NOSE: No evidence of epistaxis MOUTH: No lesions or candidiasis NECK: Supple LUNGS: Bibasilar crackles. Scattered bronchospasm throughout HEART: Regular, rate controlled ABDOMEN: Soft, NT, ND, BS Present EXTREMITIES: Trace LE edema, pedal pulses intact NEURO: A&OX3 Results & Data Results & Data ([facility]) Vital Signs (Past 12 Hours) Vital Signs Temp Pulse Pulse Resp BP Pulse Ox Pulse Ox 02/19/22 11:37 36.3 C L 78 18 103/65 98 02/19/22 08:00 02/19/22 08:00 02/19/22 07:46 36.7 C 78 18 99/62 L 95 02/19/22 05:00 36.6 C 80 16 136/78 92 02/19/22 04:17 02/19/22 01:50 85 02/19/22 01:39 93 02/19/22 01:40 36.4 C L 89 20 147/81 H 99 O2 Del Method O2 Del Method O2 Flow Rate O2 Flow Rate 02/19/22 11:37 Nasal Cannula 4 02/19/22 08:00 Nasal Cannula 4 02/19/22 08:00 Nasal Cannula 4 02/19/22 07:46 Nasal Cannula 4 02/19/22 05:00 02/19/22 04:17 Nasal Cannula 4 02/19/22 01:50 02/19/22 01:39 Nasal Cannula 6 02/19/22 01:40 Nasal Cannula 6 Critical Care Results & Data Vital Signs (Past 12 Hours) Vital Signs Temp Pulse Resp BP Pulse Ox O2 Del Method O2 Del Method 02/19/22 15:56 36.5 C 68 18 97/59 L 97 02/19/22 11:37 36.3 C L 78 18 103/65 98 Nasal Cannula 02/19/22 08:00 Nasal Cannula 02/19/22 08:00 Nasal Cannula 02/19/22 07:46 36.7 C 78 18 99/62 L 95 Nasal Cannula O2 Flow Rate O2 Flow Rate 02/19/22 15:56 02/19/22 11:37 4 02/19/22 08:00 4 02/19/22 08:00 4 02/19/22 07:46 4 Lab & Micro Results (Past 24 Hours) RBC 3.94 M/uL (3.93-5.22) 02/19/22 WBC 6.41 K/ul (4.8-10.8) 02/19/22 Hgb 11.5 g/dl (12.0-16.0) L 09/28/22 Hct 34.1 % (34.1-44.9) 02/19/22 MCV 86.5 fL (80.0-100.0) 02/19/22 MCH 29.2 pg (25.0-34.0) 02/19/22 MCHC 33.7 g/dL (32.0-36.0) 02/19/22 RDW Standard Deviation 46.0 fL (36.4-46.3) 02/19/22 RDW Coefficient of Variation 14.6 % (11.5-14.5) H 02/19/22 Plt Count 334 K/uL (130-400) 02/19/22 MPV 9.9 fL (9.4-12.3) 02/19/22 Neutrophils (%) (Auto) 59.4 % 02/19/22 Lymphocytes (%) (Auto) 22.8 % 02/19/22 Monocytes # (Auto) 0.83 K/uL (0.24-0.82) H 02/19/22 Eosinophils # (Auto) 0.22 K/uL (0-0.50) 02/19/22 Immature Granulocyte % (Auto) 0.9 % 02/19/22 Neutrophils # (Auto) 3.80 K/uL (1.4-6.5) 02/19/22 Lymphocytes # (Auto) 1.46 K/uL (1.2-3.4) 02/19/22 Monocytes # (Auto) 0.83 K/uL (0.24-0.82) H 02/19/22 Eosinophils # (Auto) 0.22 K/uL (0-0.50) 02/19/22 Basophils # (Auto) 0.04 K/uL (0-0.2) 02/19/22 Immature Granulocyte # (Auto) 0.06 K/uL (0.00-0.02) H 02/19 Na 133 mmol/L (136-145) L 02/19/22 K 3.5 mmol/L (3.5-5.1) 02/19/22 Cl 103 mmol/L (98-107) 02/19/22 CO2 25 mmol/L (21-32) 02/19/22 Anion Gap 5 (3-11) 02/19/22 BUN 11 mg/dl (6-23) 02/19/22 Creatinine 0.72 mg/dl (0.6-1.2) 02/19/22 Estimated GFR ( Amer) 91.0 ml/min 02/19/22 Estimated GFR (Non-Af Amer) 78.5 ml/min 02/19/22 BUN/Creatinine Ratio 15.3 (10-20) 02/19/22 Glu 92 mg/dl (70-99(Fasting)) 02/19/22 Ca 7.8 mg/dl (8.5-10.1) L 02/19/22 Total Bilirubin 0.4 mg/dl (0.2-1.0) 02/19/22 AST 16 U/L (13-39) 02/19/22 ALT 17 U/L (7-52) 02/19/22 Alkaline Phosphatase 49 U/L (34-104) 02/19/22 TP 5.8 gm/dl (6.0-8.3) L 02/19/22 Albumin 2.8 gm/dl (3.4-5.0) L 02/19/22 Globulin 3.0 gm/dl (2.5-4.0) 02/19/22 Albumin/Globulin Ratio 0.9 (0.9-2) 02/19/22 Mg 2.0 mg/dl (1.7-2.4) 02/18/22 19:30 Calcium Level 7.8 mg/dl (8.5-10.1) L 02/19/22 07:20 Prothromb Time International Ratio 1.1 (0.9-1.1) 02/18/22 19:3 0 Diagnostic Findings (Past 24 Hours) Chest CTA 02/18/22 16:50 CT angio chest PE protocol CLINICAL HISTORY: Dyspnea, recent PE, tachycardia TECHNIQUE: Multidetector row helical CT of the chest was performed with angiographic protocol. Coronal and sagittal reformations were obtained. Coronal and sagittal MIPS were obtained from the axial data set and were submitted for review. Automated dose lowering techniques and/or adjustment according to patient size were utilized for this exam. CT DOSE: 252.17 mGy.cm Comparison: Comparison is made to CT chest 04/05/2019 FINDINGS: Lungs and pleura: Interval development of groundglass opacities in the bilateral upper lobes and consolidation in the right lower lobe. Atelectasis versus scarring is in the left lower lobe. Mucous plugging is noted. Heart and pericardium: Heart size is normal. No pericardial effusion. Vessels: No evidence of pulmonary embolism. Partially occlusive pulmonary emboli in the segmental arteries. Mediastinum and sulaiman: Right greater than left hilar lymph nodes. Chest wall and lower neck: Unremarkable. Abdomen: Unremarkable. Bones: Unremarkable. IMPRESSION: 1. Multiple partially occlusive pulmonary emboli in the segmental arteries bilaterally. No right heart strain is seen. 2. Groundglass opacities in the bilateral upper lobes may reflect infectious/inflammatory process. Prominent hilar lymph nodes are likely reactive. 3. Consolidation in the right lower lobe may represent pneumonia, aspiration, and/or pulmonary infarct. 4. Atelectasis in the left lower lobe. ACT 112: Negative or not required by law. Electronically signed by: Shane Parra M.D. 02/19/2022 7:26 AM Chest X-Ray 02/18/22 16:50 XR chest 1V portable CLINICAL HISTORY: Dyspnea TECHNIQUE: Single frontal radiograph of the chest was obtained. Comparison: Comparison is made to chest radiograph 02/07/2022 FINDINGS: No lines and tubes are seen. The cardiomediastinal silhouette is normal. Focal atelectasis is seen in the right lower lung. No evidence of pleural effusion or pneumothorax. IMPRESSION: No acute chest disease. ACT 112: Negative or not required by law. Electronically signed by: Shane Parra M.D. 02/18/2022 5:22 PM I & O Totals 24 Hours 02/18/22 02/19/22 02/20/22 06:59 06:59 06:59 Intake Total 740 / 740 955 / 955 Balance 740 / 740 955 / 955 Cumulative 02/18/22 16:46 thru 02/19/22 15:21 Intake Total 1695 Balance 1695 RT Ventilator Mngmt (Last Documented) Ventilator Ordered Settings Respiratory Rate 18 02/19/22 15:56 Ventilator - PT Measurements Respiratory Rate 18 PG Care Time/CCT Total # of Minutes Spent Total Time Spent with Patient: Total time spent is greater than 50% in coordination of care (as documented) at patient's floor/unit and/or counseling patient:60 minutes including 35 minutes at bedside with patient and her son Coding Level of Care Code 93801 Inpt Consult Level 5 Diagnoses Hypoxia R09.02 Headache R51 Cough R05 AYE (obstructive sleep apnea) G47.33 COVID-19 U07.1 Time Spent (min) 60
[2022-02-19] MEDS: RIVAROXABAN 20 MG TAB PO SCH (17:06)
[2022-02-19] MEDS ORDERED: predniSONE 20 MG TAB PO SCH (17:45)
[2022-02-19] MEDS ORDERED: CEFEPIME 2,000 MG in SYRINGE 0 ML IV SCH (20:00)
[2022-02-19] MEDS: GABAPENTIN 300 MG CAP PO SCH (21:10)
[2022-02-19] MEDS: FAMOTIDINE 20 MG TAB PO SCH (21:10)
[2022-02-19] MEDS: MONTELUKAST SODIUM 10 MG TABLET PO SCH (21:10)
--- NOTE | 2022-02-19 22:09 | Billing Data ---
Date of Service February 19, 2022 Coding Level of Care Code 58275 Initial Inpt Care Lvl 3
[2022-02-19] MEDS: LATANOPROST 0.005% OP SOLN 2.5 ML BTL OP SCH (22:43)
--- NOTE | 2022-02-19 22:52 | Electrocardiogram Report ---
Test Reason : Blood Pressure : / mmHG Vent. Rate : 082 BPM Atrial Rate : 082 BPM P-R Int : 160 ms QRS Dur : 068 ms QT Int : 392 ms P-R-T Axes : 065 061 027 degrees QTc Int : 457 ms Normal sinus rhythm Low voltage QRS Abnormal ECG When compared with ECG of 12-NOV-2021 05:51, T wave inversion now evident in Anterior leads Confirmed by Simon Boucher ([id number]) on 02/19/2022 10:52:19 PM Referred By: REFERRED SELF Confirmed By:Simon Boucher
[2022-02-20] MEDS: LEVOTHYROXINE SODIUM 75 MCG TABLET PO SCH (05:25)
[2022-02-20 07:24] LABS: Basophils # (auto) 0.01 K/uL (0-0.2); Basophils % (auto) 0.2 %; Hemoglobin 11.4 g/dl (12.0-16.0); Immature Granulocytes # (auto) 0.04 K/uL (0.00-0.02); Immature Granulocytes % (auto) 0.7 %; Lymphocytes # (auto) 0.63 K/uL (1.2-3.4); Lymphocytes % (auto) 10.3 %; Mean Corpuscular Hemoglobin 29.2 pg (25.0-34.0); Mean Corpuscular Hgb Conc 33.5 g/dL (32.0-36.0); Mean Corpuscular Volume 87.2 fL (80.0-100.0); Mean Platelet Volume 10.3 fL (9.4-12.3); Monocytes % (auto) 3.3 %; Neutrophils # (auto) 5.26 K/uL (1.4-6.5); Neutrophils % (auto) 85.5 %; Platelet Count 331 K/uL (130-400); RDW Standard Deviation 44.6 fL (36.4-46.3); White Blood Count 6.14 K/ul (4.8-10.8)
[2022-02-20 08:08] LABS: BUN Creatinine Ratio 14.3 (10-20); Calcium 8.4 mg/dl (8.5-10.1); Creatinine Clr Calc Pharmacy 44.2 ml/min; Est GFR (African American) 94.2 ml/min; Est GFR (Non-African American) 81.3 ml/min; Potassium 4.3 mmol/L (3.5-5.1)
--- NOTE | 2022-02-20 08:10 | Pulmonology Progress Note ---
Date of Service February 20, 2022 Assessment & Plan (1) COVID-19: (2) Cough: (3) Hypoxia: (4) Abnormal CT scan of lung: Plan Impression: 81-year-old female with PMR on chronic prednisone therapy diagnosed with COVID 02/07/2022. She was hospitalized and treated with Decadron at that point time dismissed from the hospital. She was readmitted 02/18 with progressive weakness and cough. Her CT scan remained abnormal and showed some mucous plugging. She was admitted to the hospitalist service. Overnight, the patient now feels well other than some congestion in her nose secondary to supplemental oxygen. Recommendations: 1. Acute hypoxemic respiratory failure: Secondary to COVID. Cannot rule out a component of hydrostatic pulmonary edema as well given her valvular heart disease and lower extremity edema. Continue supplemental oxygen titrated to keep saturations at or above 88%. We will pursue a trial of Flonase nasal spray to see if this offers her clinical benefit with her nasal congestion. Incentive spirometry and flutter valve indicated 2. COVID pneumonitis: Unclear if the patient will benefit from additional steroids at this point time. She is 13 days out from her initial diagnosis. Its unclear whether she requires continued isolation or not at this point time. For to infection control but my suspicion is that the patient can likely be removed from isolation. At this point time for trending inflammatory markers as it is unlikely to manager of change in this patient. There is no role for additional immunomodulation. 3. Aortic insufficiency with pulmonary hypertension. BNP was only trivially elevated. Diuretics with goal to achieve net -500-1000 cc per 24-hour. No indication for pulmonary vasodilators. 4. Procalcitonin was negative. The patient is afebrile and has no evidence of elevated white blood cell count. I think antibiotics can be safely withheld in this patient. 5. Trivial mucous plugging in the lower lobes. Continue pulmonary clearance techniques including Mucinex, flutter valve, incentive spirometry essential hyp ertonic saline. No indication for follow-up imaging the absence of clinical symptoms. Will continue to follow with you. Feel free to contact us with questions or concerns Admission and Anticipated Discharge Date Admission Date: February 18, 2022 Subjective Patient seen and examined. EMR reviewed. Discussed with pulmonary PA and agree with his prior assessment plan. The patient is awake alert and sitting up in a chair this morning. She appears in no distress. She feels the oxygen is drying to her nose. She is not having any significant increased work of breathing or wheezing. She does have dependent lower extremity edema. She has been tolerating a diet and overall feels well Review of Systems Review of Systems: All systems reviewed & are unremarkable except as noted in Subjective Physical Exam Constitutional: WD/WN, vitals as above + thin and + frail appearing; no acute distress and not in distress Neck: trachea midline, no thyromegaly Respiratory: no respiratory distress, no labored breathing, no cough and not tachypneic Auscultation: + rhonchi Cardiovascular: Heart Sounds: normal S1 and normal S2; no murmur Extremities: + edema Gastrointestinal (Abdomen): normal bowel sounds, soft, nontender, no hepatosplenomegaly Musculoskeletal: Extremities: extremities normal to inspection Skin: no rashes, warm and dry Neurologic: Nonfocal exam Lymphatic: no cervical lymphadenopathy Results & Data Results & Data ([facility]) Vital Signs (Past 12 Hours) Vital Signs Temp Pulse Pulse Resp BP Pulse Ox O2 Del Method 02/20/22 07:32 36.8 C 75 19 105/64 90 Nasal Cannula 02/20/22 07:27 74 02/20/22 04:24 37.0 C 67 18 118/61 97 Nasal Cannula 02/19/22 23:08 72 02/19/22 22:48 36.5 C 73 20 127/77 98 Nasal Cannula 02/19/22 20:00 Nasal Cannula O2 Flow Rate 02/20/22 07:32 4 02/20/22 07:27 02/20/22 04:24 4 02/19/22 23:08 02/19/22 22:48 4 02/19/22 20:00 4 Critical Care Results & Data Vital Signs (Past 12 Hours) Vital Signs Temp Pulse Pulse Resp BP Pulse Ox O2 Del Method 02/20/22 07:32 36.8 C 75 19 105/64 90 Nasal Cannula 02/20/22 07:27 74 02/20/22 04:24 37.0 C 67 18 118/61 97 Nasal Cannula 02/19/22 23:08 72 02/19/22 22:48 36.5 C 73 20 127/77 98 Nasal Cannula O2 Flow Rate 02/20/22 07:32 4 02/20/22 07:27 02/20/22 04:24 4 02/19/22 23:08 02/19/22 22:48 4 Lab & Micro Results (Past 24 Hours) RBC 3.90 M/uL (3.93-5.22) L 02/20/22 WBC 6.14 K/ul (4.8-10.8) 02/20/22 Hgb 11.4 g/dl (12.0-16.0) L 02/20/22 Hct 34.0 % (34.1-44.9) L 02/20/22 MCV 87.2 fL (80.0-100.0) 02/20/22 MCH 29.2 pg (25.0-34.0) 02/20/22 MCHC 33.5 g/dL (32.0-36.0) 02/20/22 RDW Standard Deviation 44.6 fL (36.4-46.3) 02/20/22 RDW Coefficient of Variation 14.0 % (11.5-14.5) 02/20/22 Plt Count 331 K/uL (130-400) 02/20/22 MPV 10.3 fL (9.4-12.3) 02/20/22 Neutrophils (%) (Auto) 85.5 % 02/20/22 Lymphocytes (%) (Auto) 10.3 % 02/20/22 Monocytes # (Auto) 0.20 K/uL (0.24-0.82) L 02/20/22 Eosinophils # (Auto) 0.00 K/uL (0-0.50) 02/20/22 Immature Granulocyte % (Auto) 0.7 % 02/20/22 Neutrophils # (Auto) 5.26 K/uL (1.4-6.5) 02/20/22 Lymphocytes # (Auto) 0.63 K/uL (1.2-3.4) L 02/20/22 Monocytes # (Auto) 0.20 K/uL (0.24-0.82) L 02/20/22 Eosinophils # (Auto) 0.00 K/uL (0-0.50) 02/20/22 Basophils # (Auto) 0.01 K/uL (0-0.2) 02/20/22 Immature Granulocyte # (Auto) 0.04 K/uL (0.00-0.02) H 02/20 No Data to Display No Data to Display Microbiology 02/18/22 23:29 Aerobic Blood Culture - Preliminary Blood No growth in Aerobic bottle after 24 hours. Anaerobic Blood Culture - Preliminary No growth in Anaerobic bottle after 24 hours. 02/18/22 23:29 Aerobic Blood Culture - Preliminary Blood No growth in Aerobic bottle after 24 hours. Anaerobic Blood Culture - Preliminary No growth in Anaerobic bottle after 24 hours. I & O Totals 24 Hours 02/19/22 02/20/22 02/21/22 06:59 06:59 06:59 Intake Total 740 / 740 1954 Balance 740 / 740 1954 / 1954 Cumulative 02/18/22 16:46 thru 02/20/22 06:04 Intake Total 2695 Balance 2695 RT Ventilator Mngmt (Last Documented) Ventilator Ordered Settings Respiratory Rate 19 02/20/22 07:32 Ventilator - PT Measurements Respiratory Rate 19 PG Care Time/CCT Total # of Minutes Spent Total Time Spent with Patient: Total time spent is greater than 50% in coordination of care (as documented) at patient's floor/unit and/or counseling patient: Coding Level of Care Code 20919 Subseq Hosp Care Lvl 2 Diagnoses COVID-19 U07.1 Cough R05 [address] R09.[address] scan of lung R91.8
[2022-02-20] MEDS: TOPIRAMATE 100 MG TAB PO SCH ×2 (08:25→21:01)
[2022-02-20] MEDS: guaiFENesin 600 MG TABCR PO SCH ×2 (08:26→21:02)
[2022-02-20] MEDS: PANTOprazole 40 MG TAB PO SCH ×2 (08:26→21:02)
[2022-02-20] MEDS: DULoxetine HCL 60 MG CAP PO SCH (08:27)
[2022-02-20] MEDS: CHOLECALCIFEROL 1,000 UNITS 25 MCG TAB PO SCH (08:27)
[2022-02-20] MEDS: DOCUSATE SODIUM 100 MG CAP PO SCH (08:27)
[2022-02-20] MEDS: DORZOLAMIDE/TIMOLOL 22.3/6.8MG/ML 10 ML BTL OPB SCH ×2 (08:29→21:09)
[2022-02-20] MEDS: FLUTICASONE/VILANTEROL 200/25MCG 14 PUFFS/INHALER INH SCH (08:30)
[2022-02-20] MEDS: ARTIFICIAL TEARS OP SCH ×3 (08:30→21:09)
[2022-02-20] MEDS: dexAMETHasone 4 MG TAB PO SCH (08:50)
[2022-02-20] MEDS ORDERED: FUROSEMIDE 40 MG TAB PO SCH (09:00)
[2022-02-20] MEDS: CEFEPIME 2,000 MG in SYRINGE 0 ML IV SCH (09:25)
[2022-02-20] MEDS: BENZONATATE 100 MG CAPSULE PO SCH ×3 (09:26→21:05)
--- NOTE | 2022-02-20 10:40 | XRay Report ---
XR chest 1V portable CLINICAL HISTORY: Mucous plugging TECHNIQUE: Single frontal radiograph of the chest was obtained. Comparison: Comparison is made to chest radiograph 02/18/2022 FINDINGS: No lines and tubes are seen. The cardiomediastinal silhouette is normal. The lungs are clear. No evid ence of pleural effusion or pneumothorax. IMPRESSION: No acute chest disease. ACT 112: Negative or not required by law. Electronically signed by: Shane Parra M.D. 02/20/2022 10:39 AM
[2022-02-20] MEDS: ACETAMINOPHEN 325 MG TAB PO PRN ×2 (15:59→21:12)
[2022-02-20] MEDS: RIVAROXABAN 20 MG TAB PO SCH (16:00)
[2022-02-20] MEDS ORDERED: busPIRone 5 MG TAB PO STA (18:13)
--- NOTE | 2022-02-20 20:31 | Hospitalist Progress Note ---
Date of Service February 20, 2022 Assessment & Plan (1) Hypoxia: Plan: 2nd to asthma exacerbation in the setting of COVID pneumonia. CTA chest with b/l infiltrates on day of admission. Procal negative; bacterial superinfection unlikely, but send sputum culture. Recheck CRP in am - most recent level 9. Cont dexamethasone 6mg daily. Cont bronchodilators. Cont pulmonary toilet. Abx have been d/c. (2) Pneumonia: Plan: As seen on CTA chest. Likely due to COVID-19 infection. Bacterial superinfection possible but less likely. Cont dexamethasone. Deferring on abx for now. Repeat CRP am. Appreciate pulmonary consultation & recs. (3) Generalized weakness: Plan: 2nd to COVID-19 infection. Date of first + test -- 02/07. First day of symptoms ~02/04/22, thus 15+ days into the illness. d/c isolation?? will d/w infection control in am. (4) History of pulmonary embolus (PE): Plan: noted remains on Xarelto 20mg daily most recent CTA chest with chronic appearing PEs (5) Hyponatremia: Plan: 2nd to lasix? Na level worse today. would place tomorrow AM's lasix on hold until BMP is repeated. (6) Elevated troponin: Plan: 2nd to myocardial demand ischemia no evidence of ACS peak HS trop - 38.9 on 02/07/22 (7) Polymyalgia rheumatica: Plan: Follows with Dr. Nunez - Rheumatology at [facility] Typically on 2.5mg of prednisone daily - on hold while using dexamethasone Continue duloxetine, gabapentin (8) Pulmonary hypertension: Plan: Follows with [facility] [place] for this. SEVERE. Most recent echo with PA Pressure >70. Continue spironolactone Lasix Echo 07/2021 demonstrating severely elevated pulmonary artery pressure, estimated PASP 79 mmHg (9) Asthma: Plan: With exacerbation - see above Continue Singulair, Symbicort, albuterol as needed (10) Hypothyroid: Plan: TSH 02/07/22 wnl Continue levothyroxine (11) Chronic pain: Plan: Chronic headaches Continue topiramate prophylaxis (12) GERD (gastroesophageal reflux disease): Plan: Continue pantoprazole 40mg b.i.d. Continue famotidine to 40mg daily (13) Moderate aortic insufficiency: Plan: Echo 07/2021 at [facility]: Moderate central aortic insufficiency (PHT [id number] MS) Follows with [facility], Dr. Herrera (14) Chronic insomnia: Plan: add back trazodone 50mg HS add melatonin 3mg HS buspar 5mg po x 1 for acute anxiety Plan attempted to call pt's grand-daughter at phone # listed in chair - phone would not connect thus attempts unsuccessful Admission and Anticipated Discharge Date Admission Date: February 18, 2022 Subjective tele stable overnight patient pacing the room without dyspnea when I came to visit her she feels "cooped up" and states "I gotta get out of here" she was VERY anxious - agreeable to a dose of buspar reports feeling very tired because she couldn't sleep last night she reports taking trazodone 50mg at HS and didn't get it last night cont with cough and wheezing staff report cough is productive she denies dyspnea denies pain in any location Review of Systems Review of Systems: gen - no fever, eating fair psych - anxious, insomnia pulm - cough, sputum production, wheezes GI - no nausea or emesis cv - no orthopnea Physical Exam Physical Exam: gen - VERY ANXIOUS, pacing the room, no dyspnea neck - no JVD mouth - MMM heart - RRR, s1 s2, no murmur lungs - b/l wheezes most lung segments, no rales, no increased work of breathing abd - soft NT ND BS+ ext - no edema, trace edema b/l, pulses 2+ b/l psych - a/o x 3, very anxious, tearful Results & Data Results & Data ([facility]) Vital Signs (Past 12 Hours) Vital Signs Temp Pulse Pulse Resp BP Pulse Ox O2 Del Method 02/20/22 19:00 36.6 C 79 20 120/71 96 Nasal Cannula 02/20/22 19:02 76 18 95 Nasal Cannula 02/20/22 15:48 36.3 C L 78 19 122/74 98 Nasal Cannula 02/20/22 14:00 75 02/20/22 11:20 36.5 C 70 19 102/56 L 100 Nasal Cannula O2 Flow Rate 02/20/22 19:00 4 02/20/22 19:02 2 02/20/22 15:48 4 02/20/22 14:00 02/20/22 11:20 4 Laboratory Results Laboratory Results - last 24 hr 02/20/22 02/20/22 06:05 06:05 WBC 6.14 RBC 3.90 L Hgb 11.4 L Hct 34.0 L MCV 87.2 MCH 29.2 MCHC 33.5 RDW Std Deviation 44.6 RDW Coeff of Sudha 14.0 Plt Count 331 MPV 10.3 Immature Gran % (Auto) 0.7 Neut % (Auto) 85.5 Lymph % (Auto) 10.3 Craven % (Auto) 3.3 Eos % (Auto) 0.0 Baso % (Auto) 0.2 Neut # (Auto) 5.26 Lymph # (Auto) 0.63 L Craven # (Auto) 0.20 L Eos # (Auto) 0.00 Baso # (Auto) 0.01 Immature Gran # (Auto) 0.04 H Sodium 128 L Potassium 4.3 D Chloride 96 L Carbon Dioxide 24 Anion Gap 8 BUN 10 Creatinine 0.70 Est Cr Clr Drug Dosing 44.2 Est GFR ( Amer) 94.2 Est GFR (Non-Af Amer) 81.3 BUN/Creatinine Ratio 14.3 Glucose 157 H Calcium 8.4 L PG Care Time/CCT Total # of Minutes Spent Total Time Spent with Patient: Total time spent is greater than 50% in coordination of care (as documented) at patient's floor/unit and/or counseling patient: Coding Level of Care Code 55399 Subseq Hosp Care Lvl 3 Diagnoses Hypoxia R09.02 Pneumonia J18.9 Generalized weakness R53.1 History of pulmonary embolus (PE) Z86.711 Hyponatremia E87.1 Elevated troponin R77.8 Polymyalgia rheumatica M35.3 Pulmonary hypertension I27.20 Asthma J45.20 Asthma complication type: uncomplicated Asthma persistence: intermittent Asthma severity: mild Hypothyroid E03.9 Chronic pain G89.29 Chronic pain type: other chronic pain GERD (gastroesophageal reflux disease) K21.9 Esophagitis presence: esophagitis presence not specified Moderate aortic insufficiency I35.1 Chronic insomnia F51.04 (1) Chronic pain Chronic pain type: other chronic pain Qualified Code(s): G89.29 - Other chronic pain (2) GERD (gastroesophageal reflux disease) Esophagitis presence: esophagitis presence not specified Qualified Code(s): K21.9 - Gastro-esophageal reflux disease without esophagitis (3) Asthma Asthma complication type: uncomplicated Asthma persistence: intermittent Asthma severity: mild Qualified Code(s): J45.20 - Mild intermittent asthma, uncomplicated
[2022-02-20] MEDS ORDERED: MELATONIN 3 MG TAB PO SCH (21:00)
[2022-02-20] MEDS ORDERED: traZODone HCL 50 MG TAB PO SCH (21:00)
[2022-02-20] MEDS: MONTELUKAST SODIUM 10 MG TABLET PO SCH (21:04)
[2022-02-20] MEDS: FAMOTIDINE 20 MG TAB PO SCH (21:04)
[2022-02-20] MEDS: GABAPENTIN 300 MG CAP PO SCH (21:05)
[2022-02-20] MEDS: LATANOPROST 0.005% OP SOLN 2.5 ML BTL OP SCH (21:09)
[2022-02-21] MEDS: LEVOTHYROXINE SODIUM 75 MCG TABLET PO SCH (06:23)
[2022-02-21 06:40] LABS: Basophils # (auto) 0.03 K/uL (0-0.2); Basophils % (auto) 0.4 %; Eosinophils % (auto) 1.4 %; Hematocrit (blood only) 31.3 % (34.1-44.9); Hemoglobin 10.9 g/dl (12.0-16.0); Immature Granulocytes # (auto) 0.05 K/uL (0.00-0.02); Immature Granulocytes % (auto) 0.7 %; Lymphocytes % (auto) 24.5 %; Mean Corpuscular Hemoglobin 29.5 pg (25.0-34.0); Mean Corpuscular Hgb Conc 34.8 g/dL (32.0-36.0); Mean Corpuscular Volume 84.8 fL (80.0-100.0); Mean Platelet Volume 9.5 fL (9.4-12.3); Monocytes # (auto) 0.76 K/uL (0.24-0.82); Monocytes % (auto) 10.9 %; Neutrophils # (auto) 4.31 K/uL (1.4-6.5); Neutrophils % (auto) 62.1 %; Platelet Count 353 K/uL (130-400); RDW Coefficient of Variation 13.8 % (11.5-14.5); RDW Standard Deviation 42.7 fL (36.4-46.3); Red Blood Count 3.69 M/uL (3.93-5.22); White Blood Count 6.95 K/ul (4.8-10.8)
[2022-02-21 07:17] LABS: BUN Creatinine Ratio 17.1 (10-20); Calcium 8.6 mg/dl (8.5-10.1); Creatinine Clr Calc Pharmacy 45.3 ml/min; Est GFR (African American) 94.2 ml/min; Est GFR (Non-African American) 81.3 ml/min; Potassium 3.6 mmol/L (3.5-5.1)
[2022-02-21] MEDS: guaiFENesin 600 MG TABCR PO SCH (08:49)
[2022-02-21] MEDS: DULoxetine HCL 60 MG CAP PO SCH (08:50)
[2022-02-21] MEDS: BENZONATATE 100 MG CAPSULE PO SCH ×2 (08:50→15:24)
[2022-02-21] MEDS: TOPIRAMATE 100 MG TAB PO SCH (08:50)
[2022-02-21] MEDS: DOCUSATE SODIUM 100 MG CAP PO SCH (08:50)
[2022-02-21] MEDS: DORZOLAMIDE/TIMOLOL 22.3/6.8MG/ML 10 ML BTL OPB SCH (08:50)
[2022-02-21] MEDS: dexAMETHasone 4 MG TAB PO SCH (08:50)
[2022-02-21] MEDS: PANTOprazole 40 MG TAB PO SCH (08:50)
[2022-02-21] MEDS: ARTIFICIAL TEARS OP SCH ×2 (08:50→14:24)
[2022-02-21] MEDS: CHOLECALCIFEROL 1,000 UNITS 25 MCG TAB PO SCH (08:50)
[2022-02-21] MEDS: FLUTICASONE/VILANTEROL 200/25MCG 14 PUFFS/INHALER INH SCH (08:51)
--- NOTE | 2022-02-21 09:10 | Pulmonology Progress Note ---
Date of Service February 21, 2022 Assessment & Plan (1) COVID-19: (2) Cough: (3) Hypoxia: (4) Abnormal CT scan of lung: Plan Impression: 81-year-old female with PMR on chronic prednisone therapy diagnosed with COVID 02/07/2022. She was hospitalized and treated with Decadron at that point time dismissed from the hospital. She was readmitted 02/18 with progressive weakness and cough. Her CT scan remained abnormal and showed some mucous plugging. She is stable to slightly improved. Recommendations: 1. Acute hypoxemic respiratory failure: Secondary to COVID. Cannot rule out a component of hydrostatic pulmonary edema as well given her valvular heart disease and lower extremity edema. Continue supplemental oxygen titrated to keep saturations at or above 88%. Incentive spirometry and flutter valve indicated. Defer diuretics to primary service 2. COVID pneumonitis: Unclear if the patient will benefit from additional steroids at this point time. She is 13 days out from her initial diagnosis. Its unclear whether she requires continued isolation or not at this point time. Defer to infection control but my suspicion is that the patient can likely be removed from isolation. At this point time for trending inflammatory markers as it is unlikely to change house attendant in this patient. There is no role for additional immunomodulation. 3. Aortic insufficiency with pulmonary hypertension. BNP was only trivially elevated. Diuretics with goal to achieve net -500-1000 cc per 24-hour. No indication for pulmonary vasodilators. 4. Procalcitonin was negative. no indication for additional abx 5. Trivial mucous plugging in the lower lobes. Continue pulmonary clearance techniques including Mucinex, flutter valve, incentive spirometry essential hypertonic saline. No indication for follow-up imaging the absence of clinical symptoms. 6. Depending on clinical course, follow-up CT scan in 2 to 3 months and pulmonary function testing at that point time may not be unreasonable. This point time the patient appears to be responding appropriately. Anticipate that she will need to be sent home potentially with supplemental oxygen. Her pulmonary issues appear stable. We are available to assist in evaluation management this patient if needed. Please call if we can be of additional assistance Admission and Anticipated Discharge Date Admission Date: February 18, 2022 Subjective Patient without new complaints. She was somewhat agitated last night and given a dose of BuSpar. She does not report any dyspnea. She occasionally coughs but is not producing any phlegm. Review of Systems Review of Systems: All systems reviewed & are unremarkable except as noted in Subjective Physical Exam Constitutional: WD/WN, vitals as above + thin and + frail appearing; no acute distress and not in distress Neck: trachea midline, no thyromegaly Respiratory: no respiratory distress, no labored breathing, no cough and not tachypneic Auscultation: + rhonchi Cardiovascular: Heart Sounds: normal S1 and normal S2; no murmur Extremities: + edema Gastrointestinal (Abdomen): normal bowel sounds, soft, nontender, no hepatosplenomegaly Musculoskeletal: Extremities: extremities normal to inspection Skin: no rashes, warm and dry Lymphatic: no cervical lymphadenopathy Results & Data Results & Data ([facility]) Vital Signs (Past 12 Hours) Vital Signs Temp Pulse Pulse Resp BP Pulse Ox O2 Del Method 02/21/22 08:04 36.7 C 70 20 104/59 L 90 Nasal Cannula 02/21/22 07:00 79 02/21/22 02:52 36.4 C L 75 20 100/63 90 Room Air 02/20/22 22:22 81 02/20/22 22:57 36.6 C 69 16 120/66 98 Nasal Cannula O2 Flow Rate 02/21/22 08:04 2 02/21/22 07:00 02/21/22 02:52 02/20/22 22:22 02/20/22 22:57 4 Laboratory Results 02/21/22 06:22 02/21/22 06:22 Diagnostic Findings No new imaging PG Care Time/CCT Total # of Minutes Spent Total Time Spent with Patient: Total time spent is greater than 50% in coordination of care (as documented) at patient's floor/unit and/or counseling patient: Coding Level of Care Code 97297 Subseq Hosp Care Lvl 2 Diagnoses COVID-19 U07.1 Cough R05 [address] R09.[address] scan of lung R91.8
--- NOTE | 2022-02-21 11:19 | XRay Report ---
XR chest 1V portable CLINICAL HISTORY: Mucous plugging. COMPARISON STUDY: Chest CT February 18, 2022. Chest radiograph February 20, 2022. FINDINGS: There is no pneumothorax or pleural effusion. There is mild linear left basilar opacity. A 4.1 cm nodular opacity within the right upper lobe has developed. Cardiomediastinal silhouette is sta ble. There is no evidence for pulmonary edema. IMPRESSION: 1. 4 cm nodular opacity within the right upper lobe. This favors a developing pneumonia. 2. Linear left basilar opacity which favors atelectasis. ACT 112: Negative or not required by law. Electronically signed by: Joselito Montes M.D. 02/21/2022 11:17 AM
[2022-02-21] MEDS: RIVAROXABAN 20 MG TAB PO SCH (17:26)
--- NOTE | 2022-02-21 18:07 | Discharge Summary ---
Date of Service date of admission - February 18, 2022 date of discharge - February 21, 2022 Admission HPI Per Admitting Provider This is an 81-year-old female with a history of recent admission secondary to COVID-19, prior PE on Xarelto, migraines, chronic fatigue syndrome with fibrom yalgia, exertional dyspnea with pHTN, cerebrovascular disease, PMR on prednisone, osteoporosis, asthma, hypothyroidism, GERD, choledocholithiasis s/p ERCP w/ stent placement and sphincterotomy in 10/2021 and subsequent removal in 01/2022 with postprocedural course complicated by GIB who presented to [facility] for evaluationfor worsening weakness and cough. Patient says that since her last hospitalization, she has been getting progressively weaker. She feels like she does not have any energy. She also says that her cough is continued, and gotten little worse. She says that her appetite has not been too bad, but she has had some decreased p.o. intake. She denies any new fevers, chills, sweats. Denies any productive sputum. She denies any difficulties with sleepingshe says that she is able to get the cough to "calm down". She denies any new belly pain, nausea, vomiting, diarrhea, urinary symptoms. She denies any new or changes in medications since her last visit. She continues taking prednisone as prescribed. She continues taking Xarelto as prescribed Of note, patient was recently discharged from [facility] on 02/09; she was briefly hospitalized secondary to AHRF secondary to COVID-19 PNA and weakness. She was treated with dexamethasone in the hospital; remdesivir was deferred due to MARIANO. She was discharged on her home prednisone. Medications reviewed and include albuterol, alendronate, budesonideformoterol, vitamin D, docusate sodium, duloxetine 120 mg, famotidine, fexofenadine, furosemide, gabapentin, levothyroxine, magnesium, montelukast, multivitamin, Protonix, prednisone 2.5 mg daily, topiramate 100 mg twice daily, tramadol 50 mg 3 times daily, trazodone, Xarelto. In the ER, patient was found to be tachycardic to 114 with otherwise normal vital signs; respiratory rate on arrival was 20, SPO2 was 99%. She did have 1 event in the ER where she desaturated to 87% and she was subsequently placed on nasal cannula. Admission labs revealing for normal white count, normal hemoglobin, relative neutrophilia/monocytosis/lymphopenia, normal coagulation studies, mild hyponatremia 131, normal LFTs, mildly elevated troponin 26.1, COVID-19 NAAT positive. CTA-Chest STAT-Rad: " The pulmonary arteries within the right middle and right lower lobe are attenuated and truncated which can be seen as a sequela of chronic PE. Scattered airspace of opacities in the lungs bilaterally. Mucous plugging in the right lower lobe." ECG demonstrating some T wave abnormalities in V2, V3. She was given cefepime and normal saline. --- This documentation was created utilizing dictation software. As such, syntax, grammatical, and word-choice errors may be present. Notes are screened prior to submission in an attempt to reduce these errors. If there are any questions or concerns, please contact the author directly for clarification. Principal Diagnosis 1. COVID-19 pneumonia 2. Asthma exacerbation 2nd to #1 Discharge Exam gen - anxiou, but NAD; no dyspnea neck - no JVD mouth - MMM heart - RRR, s1 s2, no murmur lungs - b/l wheezes, no rales, no increased work of breathing abd - soft NT ND BS+ ext - no edema, pulses 2+ b/l psych - a/o x 3, anxious Discharge Data Allergies Allergy/AdvReac Type Severity Reaction Status Date / Time aspirin Allergy Intermediate GI UPSET Verified 02/18/22 18:47 codeine Allergy Intermediate GI UPSET Verified 02/18/22 18:47 erythromycin base Allergy Intermediate GI UPSET Verified 02/18/22 18:47 Consultations [facility] PT, OT Procedures Performed 2-step ambulatory oxygen test - does not need home O2 Ordered Studies Chest CTA 02/18/22 16:50 CT angio chest PE protocol CLINICAL HISTORY: Dyspnea, recent PE, tachycardia TECHNIQUE: Multidetector row helical CT of the chest was performed with angiographic protocol. Coronal and sagittal reformations were obtained. Coronal and sagittal MIPS were obtained from the axial data set and were submitted for review. Automated dose lowering techniques and/or adjustment according to patient size were utilized for this exam. CT DOSE: 252.17 mGy.cm Comparison: Comparison is made to CT chest 04/05/2019 FINDINGS: Lungs and pleura: Interval development of groundglass opacities in the bilateral upper lobes and consolidation in the right lower lobe. Atelectasis versus scarring is in the left lower lobe. Mucous plugging is noted. Heart and pericardium: Heart size is normal. No pericardial effusion. Vessels: No evidence of pulmonary embolism. Partially occlusive pulmonary emboli in the segmental arteries. Mediastinum and sulaiman: Right greater than left hilar lymph nodes. Chest wall and lower neck: Unremarkable. Abdomen: Unremarkable. Bones: Unremarkable. IMPRESSION: 1. Multiple partially occlusive pulmonary emboli in the segmental arteries bilaterally. No right heart strain is seen. 2. Groundglass opacities in the bilateral upper lobes may reflect infectious/inflammatory process. Prominent hilar lymph nodes are likely reactive. 3. Consolidation in the right lower lobe may represent pneumonia, aspiration, and/or pulmonary infarct. 4. Atelectasis in the left lower lobe. ACT 112: Negative or not required by law. Electronically signed by: Shane Parra M.D. 02/19/2022 7:26 AM Chest X-Ray 02/18/22 16:50 XR chest 1V portable CLINICAL HISTORY: Dyspnea TECHNIQUE: Single frontal radiograph of the chest was obtained. Comparison: Comparison is made to chest radiograph 02/07/2022 FINDINGS: No lines and tubes are seen. The cardiomediastinal silhouette is normal. Focal atelectasis is seen in the right lower lung. No evidence of pleural effusion or pneumothorax. IMPRESSION: No acute chest disease. ACT 112: Negative or not required by law. Electronically signed by: Shane Parra M.D. 02/18/2022 5:22 PM Chest X-Ray 02/20/22 07:00 XR chest 1V portable CLINICAL HISTORY: Mucous plugging TECHNIQUE: Single frontal radiograph of the chest was obtained. Comparison: Comparison is made to chest radiograph 02/18/2022 FINDINGS: No lines and tubes are seen. The cardiomediastinal silhouette is normal. The lungs are clear. No evidence of pleural effusion or pneumothorax. IMPRESSION: No acute chest disease. ACT 112: Negative or not required by law. Electronically signed by: Shane Parra M.D. 02/20/2022 10:39 AM Chest X-Ray 02/21/22 07:00 XR chest 1V portable CLINICAL HISTORY: Mucous plugging. COMPARISON STUDY: Chest CT February 18, 2022. Chest radiograph February 20, 2022. FINDINGS: There is no pneumothorax or pleural effusion. There is mild linear left basilar opacity. A 4.1 cm nodular opacity within the right upper lobe has developed. Cardiomediastinal silhouette is stable. There is no evidence for pulmonary edema. IMPRESSION: 1. 4 cm nodular opacity within the right upper lobe. This favors a developing pneumonia. 2. Linear left basilar opacity which favors atelectasis. ACT 112: Negative or not required by law. Electronically signed by: Joselito Montes M.D. 02/21/2022 11:17 AM Hospital Course (1) Pneumonia due to COVID-19 virus: Bilateral - ss seen on CTA chest. Likely due to COVID-19 infection. Bacterial superinfection possible but less likely. Sputum culture remained negative while here. Blood cultures were negative. Procalcitonin was negative. CRP improved from 9 to 4.5 with IV dexamethasone. She did have O2 requirement for most of her stay. However, O2 was weaned off the day of discharge and she DID PASS her 2-step ambulatory O2 test. At discharge she will - * complete a dexamethasone steroid taper * complete a course of doxycycline 100mg BID x 7 days * continue albuterol via spacer prn * check her O2 sats at home * continue her prior inhalers * follow-up with [facility] and/or her PCP within 1 week for recheck Of note - the patient is 14+ days out from the time of her initial diagnosis of COVID-19. It was felt that she was likely not contagious any longer at time of hospital discharge. Thus, she was told she did not necessarily have to isolate at home after discharge. (2) Asthma with exacerbation: 2nd COVID-19 infection. Patient had wheezing throughout her stay. She was treated with IV steroids, bronchodilators, etc. CTA chest as noted above. [facility] saw her in consult while here. It was uncertain if some of the wheezing was "Cardiac wheezing" (ie pulmonary edema). She did receive some diuresis while here. She will complete a dexamethasone taper upon return home. She will continue Singulair, Symbicort, and albuterol as needed. (3) Hypoxia: 2nd to asthma exacerbation in the setting of COVID-19 pneumonia. CTA chest with b/l infiltrates on day of admission. Procal negative; bacterial superinfection unlikely, but sent sputum culture, and this returned negative. Peak CRP was 9, improving to 4.5 at discharge. Required NC O2 most of the stay, weaning off such by day of discharge. Ambulatory 2-step O2 test showed NO NEED FOR HOME O2. Cont bronchodilators. Cont pulmonary toilet. Finish dexamethasone steroid taper post-discharge. (4) Generalized weakness: 2nd to COVID-19 infection. Date of first positive test -- 02/07/22. First day of symptoms ~02/04/22, thus 15+ days into the illness. Seen by PT/OT during the stay. Rehab was advised. Patient had NO INTEREST in going to rehab. She stated she was going home. Social work set her up with home nursing and PT/OT. (5) History of pulmonary embolus (PE): noted remains on Xarelto 20mg daily most recent CTA chest with chronic appearing filling defects/PEs (6) Hyponatremia: Range 128 to 131 while here. She takes lasix 20mg daily at home - this will be continued to keep fluid balance negative in the setting of steroids & COVID infection. She did not examine overtly for CHF. She will need a repeat BMP shortly after discharge to ensure stability of her sodium. (7) Elevated troponin: 2nd to myocardial demand ischemia no evidence of ACS peak HS trop - 38.9 on 02/07/22 (8) Polymyalgia rheumatica: Follows with Dr. Nunez - Rheumatology at [facility] Typically on 2.5mg of prednisone daily - on hold while using dexamethasone She was instructed to resume the prednisone once off her dexamethasone taper Continue duloxetine, gabapentin (9) Pulmonary hypertension: Follows with [facility] for this. SEVERE. Most recent echo with PA Pressure >70. Continue Lasix Echo 07/2021 demonstrating severely elevated pulmonary artery pressure, estimated PASP 79 mmHg Passed ambulatory 2-step NC O2 test (10) Asthma: With exacerbation - see above (11) Hypothyroid: TSH 02/07/22 wnl Continue levothyroxine 75mcg daily (12) Chronic pain: Chronic headaches Continue topiramate prophylaxis (13) GERD (gastroesophageal reflux disease): Continue pantoprazole 40mg b.i.d. Continue famotidine to 20mg daily (14) Moderate aortic insufficiency: Echo 07/2021 at [facility]: Moderate central aortic insufficiency (PHT 438 MS) Follows with [facility], Dr. Herrera (15) Chronic insomnia: cont trazodone 50mg HS cont melatonin 3mg HS Plan on day of discharge patient was adamant that she was going home. this was despite concerns from her family as well as PT/OT advising rehab. fortunately she was walking around in her room independently and did not require NC O2 upon transition home. she will need close f/u with her PCP and pulmonary post-discharge. Home Health Attestation I certify that this patient is under my care and that I, or a physicians resident assistant cna working with me, had a face to-face encounter that meets the home health [id number] encounter requirements with this patient. The encounter with the patient was in whole, or in part, for the following medical condition, which is the primary reason for home health care (list medical condition): Covid I certify that, based on my findings, the following services are medically necessary home health services: My clinical findings support the need for the above services because: PT Assessment for Endurance / Balance / Strength PT Eval for Safety and Mobility PT Eval for Safety, Gait Training, Assistive Devices PT Gait and Balance Training, Strengthening and Safety Skilled Nsg Assessment Further, I certify that my clinical findings support that this patient is homebound (i.e. absences from home require considerable and taxing effort and are for medical reasons or oriental orthodox services or infrequently or of short duration when for other reasons) because: Transportation Assistance/Unable to Leave Home Unassisted Certification for Home Health Services: Based on the above findings, I certify that this patient is confined to the home and needs intermittent snf care, physical therapy and/or speech therapy or continues to need occupational therapy. The patient is under my care, and I have initiated the establishment of the plan of care. This patient will be followed by a physician who will periodically review the plan of care. Total Time Total Time Spent Total Time Spent (In Minutes): 45 Discharge Plan Discharge Items Patient Disposition: Home - Home Health Services Reason For Visit: WEAKNESS, SHORTNESS OF BREATH Discharge Diagnosis: Weakness, shortness of breath - due to COVID-19 pneumonia and asthma flare-up Activity: As commented below Activity Comment: gradually increase your activities over the next 1-2 weeks Non-emergency contact: Primary Care Provider and Hide Dyer Call non-emergency contact if: you have any medication questions, your symptoms worsen and you have a fever Follow-up/Referrals: Dalton Rendon MD [Primary Care Provider] - 03/07/22 11:00 am (with Kamini GUTIERREZ ) Alfonso Humphrey MD [Physician] - (office will call pt) Diet: Heart Healthy Addtl Attending Provider Instructions: Mrs Alvarenga You were hospitalized for weakness due to COVID-19 infection. The COVID caused pneumonia in your lungs. Your asthma was also very active with wheezing, cough, etc. You required oxygen up until the morning of 02/21. Fortunately you do not need oxygen at home - a walking oxygen test the day of discharge showed you do not need oxygen. Recommendations - 1. dexamethasone steroid - this is for your asthma and your COVID pneumonia - start 02/22/2022 as follows: * days 1, 2, and 3 - take 3 tablets once daily with food (total of 6mg) * days 4, 5, and 6 - take 2 tablets once daily with food (total of 4mg) * days 7, 8, and 9 - take 1 tablet once daily with food (total of 2mg) 2. while on dexamethasone you may HOLD your prednisone 2.5mg dose that you take for your muscle condition that Dr Nunez sees you for. When the 9 days of dexamethasone is complete you can resume the prednisone at that time. 3. for cough - * albuterol via spacer device - 2 puffs every 4 hours as needed for cough/whe blanquita/shortness of breath * tessalon pearles - 100mg every 8 hours as needed for cough * you can also use [id number] mucinex up to 1200mg twice daily 4. in the event there is any bacteria in the lungs you have been prescribed doxycycline antibiotic - 100mg twice daily x 7 days. You can start this tonight or first thing tomorrow AM. 5. purchase a pulse oximeter to check your oxygen levels on your finger. If your oxygen levels are consistently above 90% these are acceptable readings. If you are consistently less than 90% please seek medical attention. 6. you are unlikely to be contagious to others at this time from the COVID infection. However, I would plan to spend the next few days at home resting and taking good care of yourself. If you leave your home over the next 5-7 days please be diligent in wearing a good-fitting mask. 7. the cough, weakness, etc from your COVID may last another 1-2 weeks. The cough is typically the last symptom to resolve. 8. follow-up with [facility] - Dr Chandler or his partners - next week. Be sure to connect with their office this THURSDAY to set up the follow-up appointment. return to [facility] if - * you are having worsening shortness of breath * you have chest pains * your oxygen levels on your finger with your pulse ox are less than 90% consistently * you have fevers over 100 degrees * any other concerns It was our pleasure to care for you! Dr Davila Pending Studies at Discharge: Yes Studies:: sputum culture to look for bacteria Stand-Alone Forms: My [facility], Smoking Cessation Medications and DC Order Prescriptions: New benzonatate 100 mg Capsule 100 mg PO TID PRN (Reason: cough) Qty: 30 0RF dexamethasone 2 mg tablet 2 mg PO .daily as directed Qty: 18 0RF Rx Instructions: start 02/22: 3 tabs days 1-3; 2 tabs days 4-6; 1 tab days 7-9. Take with food. doxycycline hyclate 100 mg tablet 100 mg PO BID 7 Days Qty: 14 0RF Continued Orazinc 25 mg zinc (110 mg) tablet 25 mg PO DAILY montelukast 10 mg tablet 10 mg PO HS Qty: 90 3RF gabapentin 300 mg capsule 300 mg PO HS 90 Days Qty: 90 1RF topiramate 50 mg tablet 100 mg PO BID 90 Days Qty: 360 0RF latanoprost 0.005 % drops 1 drops OP QPM albuterol sulfate 90 mcg/actuation HFA aerosol inhaler 2 puff INH Q6H PRN (Reason: shortness of breath or wheezing) Qty: 3 3RF budesonide-formoterol [Symbicort] 160-4.5 mcg/actuation HFA aerosol inhaler 2 puff inhalation BID Qty: 3 3RF furosemide 20 mg tablet 20 mg PO QAM Systane Gel 0.3 % gel 1 drp ophthalmic (eye) TID Systane Ultra 0.4-0.3 % drops 1 drp ophthalmic (eye) TID prednisone 2.5 mg tablet 2.5 mg PO DAILY Qty: 90 3RF alendronate [Fosamax] 70 mg tablet 70 mg PO WK multivitamin Tablet 1 tab PO QAM tramadol 50 mg tablet 50 mg PO TID duloxetine [Cymbalta] 60 mg capsule,delayed release(DR/EC) 120 mg PO QAM fexofenadine 60 mg tablet 180 mg PO QAM dorzolamide-timolol 22.3-6.8 mg/mL drops 1 drp OPB BID cholecalciferol (vitamin D3) [Vitamin D3] 25 mcg (1,000 unit) Tablet 25 mcg PO DAILY docusate sodium 100 mg Capsule 100 mg PO QAM magnesium 250 mg Tablet 250 mg PO QAM famotidine 20 mg tablet 20 mg PO HS levothyroxine 75 mcg tablet 75 mcg PO DAILYBB Rx Instructions: TAKE 1 TABLET BY MOUTH DAILY Xarelto 20 mg tablet 20 mg PO QPM Rx Instructions: must administer with evening meal. DO NOT start until after the 2 weeks of 15 mg twice a day dosing. pantoprazole 40 mg tablet,delayed release (DR/EC) 40 mg PO BID Rx Instructions: Take 1 tablet by mouth twice daily Discontinued trazodone 100 mg tablet 1 tab PO QPM No Action trazodone 100 mg tablet 100 mg PO QPM Qty: 30 0RF Rx Instructions: Pt did NOT decrease her dose to 50 mgs as per hospital d/c Discharge Orders: Discharge Order (Routine); Ordered 02/21/22 Ordered By: Jesse Farley/Other Patient Handouts: Caring for Someone Who Has COVID-19, COVID-19 Home Care, COVID 19 Flu Differences Admission Data Admit Date/Time: 02/18/22 22:47 Attending Provider: Jesse Davila Admit Provider: Rivas Haskins Primary Care Provider: Dalton Rendon Other Providers: Mariano Linn ; Quentin Delgadillo ; Jameel Mccloud ; Alfonso Humphrey ; Oliva Conway ; Lashanda Ramos Other Interventions: Discharge Summary Assessment (RN) Last Done: 02/21/22 18:09 Coding Level of Care Code D/C DAY MANAGEMENT >30 MINS Diagnoses Pneumonia due to COVID-19 virus U07.1; J12.82 Asthma with exacerbation J45.901 Hypoxia R09.02 Generalized weakness R53.1 History of pulmonary embolus (PE) Z86.711 Hyponatremia E87.1 Elevated troponin R77.8 Polymyalgia rheumatica M35.3 Pulmonary hypertension I27.20 Asthma J45.20 Asthma complication type: uncomplicated Asthma persistence: intermittent Asthma severity: mild Hypothyroid E03.9 Chronic pain G89.29 Chronic pain type: other chronic pain GERD (gastroesophageal reflux disease) K21.9 Esophagitis presence: esophagitis presence not specified Moderate aortic insufficiency I35.1 Chronic insomnia F51.04
== END 2022-02-21 18:20 | disposition home health service (06) | DRG 177 ==
LOC: ED 16:46 → 2S 22:47 → SUATTDRO 22:47 → 2S 02-19 00:43

== ENCOUNTER 2023-02-25 13:42 | Inpatient (IN) ==
--- NOTE | 2023-02-25 14:23 | Emergency Department Note ---
Impression & Plan Bilateral pulmonary embolism, Chest pain ED Provider Note NAME: LENA PAIZ AGE: 82 SEX: F : 1940 ARRIVES VIA: Walk-In INFORMANT: Patient, ED PROVIDER(S): Norm Sy MD CHIEF COMPLAINT: Chest pain MEDICAL DECISION MAKING: Patient presents due to concern for right-sided chest pain. IV was established and blood work was obtained. Patient did have a CT angiography of the chest ordered. Chest x-ray was obtained prior which does not show any obvious pneumothorax. Patient was ordered morphine Patient has normal white count H&H and platelet count. The patient's kidney function is unremarkable. Sodium 135. Patient's initial troponin is 20.4 but this has been elevated in the past. Bio fire negative. CT angiography does show bilateral segmental and subsegmental PEs. I did speak with Dr. Beebe who recommended the patient be started on heparin and transition to Coumadin and that she should stop the Xarelto given that she had blood clots with this. I did speak with the on-call hospitalist service Dr. Miranda and the patient was admitted to the medicine service. Patient was ordered heparin. Critical Care: I have personally spent 45 minutes of critical care time in direct management of this patient. This includes bedside care, interpretation of diagnostic studies, and testing, discussion with consultants, patient, and family members, and other require inpatient management activities. This 45 minutes is in excess of all separately billable procedures. Discussion w/ other healthcare providers: Dr. Beebe anticoagulant specialist. Dr. Miranda inpatient medicine Prior /Outside records reviewed: I reviewed a primary care visit from January 11, 2023. Patient was seen to establish care at that time. Patient was seen by Dr. Alexis. Differential diagnosis: Cardiac ischemia, aortic dissection, pulmonary embolism, pneumothorax, pneumonia, pericarditis, myocarditis, GERD, cholecystitis, pancreatitis, musculoskeletal, as well as other pathologies were considered. Diagnostics, as interpreted by me: ECG: Sinus with PACs, rate of 76, normal intervals normal axis, T wave versions in lead III as well as anteriorly and laterally. Patient may have new T wave versions in V4 and V5 but other T wave versions appear to be old for comparison February 18, 2022 Cardiac monitoring: An order was placed for continuous cardiac monitoring. The monitor shows a rate of 85 with sinus rhythm. Patient was placed on pulse oximetry Medical decision rules: None Imaging studies: I informally interpreted the patient's CT angiography of the chest which does show PEs with formal report to follow. HPI: Patient presents due to concern for right-sided chest pain that occurred 1 and half hours prior to arrival. The patient states it "just hurts." Unable to give a specific quality. Has been constant. Patient denies any shortness of breath but does relate that she has a known prior history of PE and does take Xarelto. Patient does have some chronic lower extremity swelling which is unchanged and that she does prop her legs up in the evening. Patient denies any falls or trauma. The patient did not take anything for symptoms at home. Patient denies any cough fever chills nausea vomiting or diarrhea. Patient did not take her morning medications today. Patient is a non-smoker. Patient denies any obvious rash to the right chest or breast area. PAST MEDICAL HISTORY: See Below PAST SURGICAL HISTORY: See Below SOCIAL HISTORY: See Below HOME MEDICATIONS: See Below ALLERGIES: See Below VITALS: See Below PHYSICAL EXAMINATION: GENERAL: NAD, non-toxic. EYE EXAM: Normal conjunctiva. PERRL, no anisocoria and EOM's grossly intact w/o pain. OROPHARYNX: Moist mucus membranes, grossly normal dentition. NECK: Supple, no nuchal rigidity, no adenopathy, non-tender. No signs of meningismus. FROM of the neck with good chin to chest and neck extension. No stridor. Chest: Reproducible right-sided chest wall pain without overlying skin changes or rash. No crepitus LUNGS: Clear to auscultation. Normal chest wall mechanics. HEART: NSR, no MRG. ABDOMEN: Abdomen soft, non-tender, no masses, no rebound or guarding. BACK: No CVA TTP. SKIN: No rashes and no bruising. UPPER EXTREMITIES: Upper extremities are grossly normal. LOWER EXTREMITIES: Grossly normal, no edema. NEURO EXAM: A&O x3, cranial nerves II-XII grossly intact, normal speech, moves all 4 extremities. Past Med/Surg History Medical History Anxiety Aortic valve insufficiency Moderate per 07/[address] Herrera Asthma SOB with exertion--uses breo inhaler daily and rescue inhaler prn Chronic insomnia Chronic venous insufficiency Fibromyalgia GERD (gastroesophageal reflux disease) Glaucoma History of COVID-19 01/2022--hospitalized @ [facility]--no symptoms now History of gastric ulcer History of migraine History of pulmonary embolus (PE) 01/2022--on xarelto--following with Dr. 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, reports no residual deficits, no issues since Surgical History H/O sinus surgery H/O tubal ligation History of cholecystectomy History of colonoscopy History of esophagogastroduodenoscopy (EGD) (~2011) History of hysterectomy with unilateral oopherectomy- 1978 History of lumbar laminectomy 2000 History of orthopedic surgery rhizotomy- pt unsure about this S/P cataract surgery S/P ERCP multiple---11/08/21 and 01/31/22 @ [facility] Family History Mother Diabetes Ovarian cancer Hypertension Kidney disease Father Diabetes Cardiac disorder Hypertension Stroke Alcohol abuse Other specified hearing loss, bilateral Aunt Breast cancer Brother Cancer Alcohol abuse Daughter , peritonitis Alcohol abuse Anxiety Dementia Family/Other Depression Anxiety Other No significant family history Denies family history of Colorectal cancer Social History Smoking Status: Never smoker Second Hand Exposure: Yes ( smoked around patient); Do You Dip or Chew Tobacco: No; Hx Alcohol Use: No Hx Substance Use: Yes (medical marijuana card (rarely uses)) Last Used Substance: Unknown Last Used Substance Other:: rarely uses Substance Use Type Other:: medical use Preferred Language: Tristanian Communication Ability: Effective Visual Impairment: Limited Hearing Ability: Hard of Hearing Quality Improvement Engineer Required: No Beliefs That Will Affect Care: None marital status: / Current Living Situation: Family Current Living Situation Comment: GRAND DAUGHTER AND great grandkids live above her in same home current occupational status: retired How many Children do You have: 1 Feels Safe at Home: Yes Childhood Exposure to Second-Hand Smoke: No Diet: regular caffeine: No during the past year weight has: decreased > 10 lbs Dental Care, Regularly: Yes Physical Activity Frequency: 1-2 Times per Week Seatbelt Use: always Sunscreen Use: Yes Assistive Devices: Glasses and Oxygen - at Night Allergies Allergies Allergy/AdvReac Type Severity Reaction Status Date / Time aspirin Allergy Intermediate GI UPSET Verified 01/27/23 10:35 codeine Allergy Intermediate GI UPSET Verified 01/27/23 10:35 erythromycin base Allergy Intermediate GI UPSET Verified 01/27/23 10:35 Home Meds Home Medications Medication Instructions Recorded Confirmed multivitamin 1 tab PO QAM 06/10/18 02/25/23 tramadol 50 mg tablet 50 mg PO AMHS 02/13/19 02/25/23 latanoprost 0.005 % eye drops 1 drops ophthalmic (eye) QPM 03/03/19 02/25/23 dorzolamide 22.3 mg-timolol 6.8 1 drp OPB BID 10/07/20 02/25/23 mg/mL eye drops zinc sulfate 25 mg zinc (110 mg) 25 mg PO QAM 12/11/20 02/25/23 tablet (Orazinc) duloxetine 60 mg capsule,delayed 120 mg PO QAM 01/31/21 02/25/23 release (Cymbalta) artificial tears(hypromellose) 0.3 1 drp ophthalmic (eye) TID 09/18/21 02/25/23 % eye gel (Systane Gel) furosemide 20 mg tablet 20 mg PO QAM 09/18/21 02/25/23 peg 400-propylene glycol 0.4 %-0.3 1 drp ophthalmic (eye) TID 09/18/21 02/25/23 % eye drops (Systane Ultra) docusate sodium 100 mg capsule 100 mg PO QAM 09/23/21 02/25/23 magnesium 250 mg tablet 250 mg PO QAM 09/23/21 02/25/23 cholecalciferol (vitamin D3) 25 100 mcg PO QAM 11/10/21 02/25/23 mcg (1,000 unit) tablet (Vitamin D3) famotidine 20 mg tablet 20 mg PO HS 01/20/23 02/25/23 fexofenadine 180 mg tablet 180 mg PO QAM 01/20/23 02/25/23 pantoprazole 40 mg tablet,delayed 40 mg PO BID 01/20/23 02/25/23 release prednisone 2.5 mg tablet 2.5 mg PO QAM 01/20/23 02/25/23 topiramate 50 mg tablet 50 mg PO BID 01/20/23 02/25/23 Previous Rx's Medication Instructions Recorded albuterol sulfate 90 mcg/actuation 2 puff inhalation Q6H PRN 03/11/21 aerosol inhaler shortness of breath or wheezing #3 Inhalers trazodone 100 mg tablet 100 mg PO QPM #30 tabs 02/24/22 gabapentin 300 mg capsule 300 mg PO HS 90 days #90 caps 12/04/22 levothyroxine 75 mcg tablet 75 mcg PO DAILYBB #90 tabs 01/12/23 metronidazole 0.75 % topical cream 1 applic topical BID PRN face 01/21/23 cream #45 grams rivaroxaban 20 mg tablet (Xarelto) 20 mg PO HS 90 days #90 tabs 01/21/23 fluticasone furoate 100 1 inh inhalation QPM #60 ea 02/02/23 mcg-vilanterol 25 mcg/dose inhalation powder (Breo Ellipta) sucralfate 1 gram tablet 1 g PO QAM #90 tabs 02/02/23 Results & Data (ED) Vital Signs Vital Signs - 24 hr 02/25/23 13:53 02/25/23 13:53 02/25/23 14:01 Pulse Rate 70 70 Pulse Rate [Apical] Pulse Rate from SpO2 Sensor Pulse Rhythm Regular Pulse Rhythm [Apical] Respiratory Rate 20 20 Respiratory Effort / Characteristics Splinting (from pain) Respiratory Depth Normal Respiratory Pattern Blood Pressure 99/65 L Blood Pressure [Right Arm] Blood Pressure Mean 76 Blood Pressure Mean [Right Arm] Blood Pressure Position Sitting Blood Pressure Position [Right Arm] Pulse Oximetry 92 92 Oxygen Delivery Method Room Air Room Air Room Air Oxygen Flow Rate Sepsis Recent Fever Within 48 Hours No Sepsis New/Unexplained Change in Mental Status No Sepsis Action Taken by Nursing No Action Required 02/25/23 14:26 02/25/23 14:30 02/25/23 14:30 Pulse Rate 67 66 Pulse Rate [Apical] Pulse Rate from SpO2 Sensor 67 Pulse Rhythm Pulse Rhythm [Apical] Respiratory Rate 24 Respiratory Effort / Characteristics Respiratory Depth Respiratory Pattern Blood Pressure 119/62 Blood Pressure [Right Arm] Blood Pressure Mean 81 Blood Pressure Mean [Right Arm] Blood Pressure Position Blood Pressure Position [Right Arm] Pulse Oximetry 92 90 Oxygen Delivery Method Room Air Oxygen Flow Rate Sepsis Recent Fever Within 48 Hours Sepsis New/Unexplained Change in Mental Status Sepsis Action Taken by Nursing 02/25/23 15:39 Pulse Rate Pulse Rate [Apical] 70 Pulse Rate from SpO2 Sensor Pulse Rhythm Pulse Rhythm [Apical] Regular Respiratory Rate 20 Respiratory Effort / Characteristics Non-Labored Spontaneous Respiratory Depth Normal Respiratory Pattern Regular Blood Pressure Blood Pressure [Right Arm] 117/77 Blood Pressure Mean Blood Pressure Mean [Right Arm] 90 Blood Pressure Position Blood Pressure Position [Right Arm] Lying Pulse Oximetry 95 Oxygen Delivery Method Nasal Cannula Oxygen Flow Rate 3 Sepsis Recent Fever Within 48 Hours Sepsis New/Unexplained Change in Mental Status Sepsis Action Taken by Half-Way Medications Current Medication List: was personally reviewed by me Laboratory Data Attestation: I reviewed the patient's lab results. 02/25/23 14:07 02/25/23 14:07 Lab Results 02/25/23 02/25/23 02/25/23 Range/Units 14:07 14:07 14:07 WBC 6.28 (4.8-10.8) K/ul RBC 4.69 (4.20-5.40) M/uL Hgb 15.0 (12.0-16.0) g/dl Hct 44.3 (37.0-47.0) % MCV 94.5 (80.0-100.0) fL MCH 32.0 (25.0-34.0) pg MCHC 33.9 (32.0-36.0) g/dL RDW Std Deviation 46.3 (36.4-46.3) fL RDW Coeff of Sudha 13.4 (11.5-14.5) % Plt Count 262 (130-400) K/uL MPV 10.4 (9.4-12.4) fL Immature Gran % (Auto) 0.3 % Neut % (Auto) 59.5 % Lymph % (Auto) 23.6 % Kemper % (Auto) 12.3 % Eos % (Auto) 3.5 % Baso % (Auto) 0.8 % Neut # (Auto) 3.74 (1.40-6.50) K/uL Lymph # (Auto) 1.48 (1.20-3.40) K/uL Kemper # (Auto) 0.77 H (0.11-0.59) K/uL Eos # (Auto) 0.22 (0.00-0.50) K/uL Baso # (Auto) 0.05 (0.00-0.20) K/uL Immature Gran # (Auto) 0.02 (0.01-0.20) K/uL PT 12.6 H (9.0-12.0) Seconds INR 1.2 H (0.9-1.1) APTT 31.1 H (21.0-31.0) Seconds PTT Ratio 1.1 Sodium 135 L (136-145) mmol/L Potassium 4.3 (3.5-5.1) mmol/L Chloride 101 (98-107) mmol/L Carbon Dioxide 28 (21-32) mmol/L Anion Gap 6 (3-11) BUN 18 (6-23) mg/dl Creatinine 0.99 (0.6-1.2) mg/dl Est Cr Clr Drug Dosing 30.3 ml/min Est GFR ( Amer) 61.5 ml/min Est GFR (Non-Af Amer) 53.1 ml/min BUN/Creatinine Ratio 18.2 (10-20) Glucose 109 H (70-99(Fasting)) mg/dl Calcium 8.9 (8.6-10.3) mg/dl Total Bilirubin 0.7 (0.2-1.0) mg/dl AST 25 (13-39) U/L ALT 14 (7-52) U/L Alkaline Phosphatase 54 (34-104) U/L Troponin I High Sens 20.4 H (0-14) pg/ml Total Protein 6.9 (6.0-8.3) gm/dl Albumin 3.8 (3.4-5.0) gm/dl Globulin 3.1 (2.5-4.0) gm/dl Albumin/Globulin Ratio 1.2 (0.9-2) Lipase 25 (11-82) U/L Procalcitonin (0-0.5) ng/ml 02/25/23 02/25/23 Range/Units 14:08 16:09 WBC (4.8-10.8) K/ul RBC (4.20-5.40) M/uL Hgb (12.0-16.0) g/dl Hct (37.0-47.0) % MCV (80.0-100.0) fL MCH (25.0-34.0) pg MCHC (32.0-36.0) g/dL RDW Std Deviation (36.4-46.3) fL RDW Coeff of Sudha (11.5-14.5) % Plt Count (130-400) K/uL MPV (9.4-12.4) fL Immature Gran % (Auto) % Neut % (Auto) % Lymph % (Auto) % Kemper % (Auto) % Eos % (Auto) % Baso % (Auto) % Neut # (Auto) (1.40-6.50) K/uL Lymph # (Auto) (1.20-3.40) K/uL Kemper # (Auto) (0.11-0.59) K/uL Eos # (Auto) (0.00-0.50) K/uL Baso # (Auto) (0.00-0.20) K/uL Immature Gran # (Auto) (0.01-0.20) K/uL PT (9.0-12.0) Seconds INR (0.9-1.1) APTT (21.0-31.0) Seconds PTT Ratio Sodium (136-145) mmol/L Potassium (3.5-5.1) mmol/L Chloride (98-107) mmol/L Carbon Dioxide (21-32) mmol/L Anion Gap (3-11) BUN (6-23) mg/dl Creatinine (0.6-1.2) mg/dl Est Cr Clr Drug Dosing ml/min Est GFR ( Amer) ml/min Est GFR (Non-Af Amer) ml/min BUN/Creatinine Ratio (10-20) Glucose (70-99(Fasting)) mg/dl Calcium (8.6-10.3) mg/dl Total Bilirubin (0.2-1.0) mg/dl AST (13-39) U/L ALT (7-52) U/L Alkaline Phosphatase (34-104) U/L Troponin I High Sens 19.9 H (0-14) pg/ml Total Protein (6.0-8.3) gm/dl Albumin (3.4-5.0) gm/dl Globulin (2.5-4.0) gm/dl Albumin/Globulin Ratio (0.9-2) Lipase (11-82) U/L Procalcitonin < 0.05 (0-0.5) ng/ml Administered Medications Artificial Tears (Artificial Tears) 1 drops OP TID INES Stop: 03/27/23 20:59 Last Admin: 02/25/23 21:23 Dose: 1 drops Documented By: NASIMA Dorzolamide/Timolol (Dorzolamide/Timolol 22.3/6.8mg/Ml 10 Ml Btl) 1 drops OPB BID [facility] Stop: 03/27/23 20:59 Last Admin: 02/25/23 21:24 Dose: 1 drops Documented By: NASIMA Famotidine (Famotidine 20 Mg Tab) 20 mg PO HS [facility] Stop: 03/27/23 20:59 Last Admin: 02/25/23 21:25 Dose: 20 mg Documented By: NASIMA Fluticasone/Vilanterol (Fluticasone/Vilanterol 100/25mcg 14 Puffs/Inhaler) 1 puffs INH QPM INES Stop: 03/27/23 20:59 Last Admin: 02/25/23 21:23 Dose: 1 puffs Documented By: NASIMA Gabapentin (Gabapentin 300 Mg Cap) 300 mg PO HS INES Stop: 03/27/23 20:59 Last Admin: 02/25/23 21:25 Dose: 300 mg Documented By: NASIMA Heparin Sodium/Dextrose (Heparin Sodium/Dextrose) 25,000 units in 500 mls @ 17 mls/hr IV .Q24H INES; Protocol Stop: 03/27/23 16:59 Last Admin: 02/25/23 17:30 Dose: 850 units/hr, 17 mls/hr Documented By: KALINA Co-signed By: NASIMA Latanoprost (Latanoprost 0.005% Op Soln 2.5 Ml Btl) 1 drops OP QPM INES Stop: 03/27/23 20:59 Last Admin: 02/25/23 21:24 Dose: 1 drops Documented By: NASIMA Morphine Sulfate (Morphine Sulfate 2 Mg/Ml Carp) 2 mg IV Q4H PRN PRN Reason: Pain Stop: 10/18/23 21:40 Last Admin: 02/25/23 21:57 Dose: 2 mg Documented By: FAY Pantoprazole Sodium (Pantoprazole 40 Mg Tab) 40 mg PO BID INES Stop: 03/27/23 20:59 Last Admin: 02/25/23 21:25 Dose: 40 mg Documented By: NASIMA Topiramate (Topiramate 50 Mg Tab) 50 mg PO BID INES Stop: 03/27/23 20:59 Last Admin: 02/25/23 21:24 Dose: 50 mg Documented By: NASIMA Tramadol HCl (Tramadol Hcl 50 Mg Tablet) 25 mg PO Q4H PRN PRN Reason: Pain (5+) Stop: 03/27/23 17:53 Last Admin: 02/25/23 18:08 Dose: 25 mg Documented By: NASIMA Trazodone HCl (Trazodone Hcl 100 Mg Tab) 100 mg PO QPM INES Stop: 03/27/23 20:59 Last Admin: 02/25/23 21:29 Dose: 50 mg Documented By: NASIMA Discontinued Medications Acetaminophen (Acetaminophen 325 Mg Tab) 650 mg PO NOW STA Stop: 02/25/23 17:07 Last Admin: 02/25/23 17:30 Dose: 650 mg Documented By: KALINA Lactated Ringer's (Lr) 500 mls @ 999 mls/hr IV .Q31M ONE Stop: 02/25/23 20:06 Last Infusion: 02/25/23 20:21 Dose: 0 mls/hr Documented By: Admin: 02/25/23 19:44 Dose: 999 mls/hr Documented By: NASIMA Ioversol (Optiray 320 125ml) 118 ml IV ONCE ONE Stop: 02/25/23 15:20 Last Admin: 02/25/23 15:19 Dose: 118 ml Documented By: RICARDO Morphine Sulfate (Morphine Sulfate 4 Mg/Ml 1 Ml Carp\\Vial) 2 mg IV NOW STA Stop: 02/25/23 14:42 Last Admin: 02/25/23 15:05 Dose: Not Given Documented By: FROY Morphine Sulfate (Morphine Sulfate 2 Mg/Ml Carp) Confirm Administered Dose 2 mg .ROUTE .STK-MED ONE Stop: 02/25/23 14:56 Last Admin: 02/25/23 15:02 Dose: 2 mg Documented By: FROY Imaging Data Radiologist's Impression: Chest X-Ray 02/25/23 14:01 SINGLE VIEW CHEST CLINICAL HISTORY: Atypical chest pain. FINDINGS: An AP, portable, upright chest radiograph is compared to study dated 12/22/2022. Correlation is made with chest CT dated 02/18/2022. The heart is enlarged. The pulmonary vasculature is noncongested. There is bibasilar scarring/atelectasis. Mild patchy airspace opacities are seen in the right midlung. No large pleural effusion or pneumothorax is seen. The skeletal str uctures are osteopenic. The bony thorax is grossly intact. IMPRESSION: 1. There are mild patchy airspace opacities in the right midlung. Correlate c linically for evidence of an infectious/inflammatory pneumonitis. Radiographic follow-up to resolution is recommended. 2. Cardiomegaly without radiographic evidence of congestive failure. ACT 112: Negative or not required by law. Electronically signed by: Quentin Aragon M.D. 02/25/2023 2:40 PM Chest CTA 02/25/23 14:02 CT angio chest PE protocol CLINICAL HISTORY: Chest Pain, eval for PE TECHNIQUE: Multidetector row helical CT of the chest was performed with angiographic protocol. Coronal and sagittal reformations were obtained. Coronal and sagittal MIPS were obtained from the axial data set and were submitted for review. Automated dose lowering techniques and/or adjustment according to patient size were utilized for this exam. CT DOSE: 549.04 mGy.cm Comparison: Comparison is made to CT chest 02/18/2022 FINDINGS: Lungs and pleura: Groundglass and reticular opacities are seen in the upper lungs. There is consolidated density in the lateral right midlung. There is a stable pulmonary nodule at the left lung base. (series 4 image 56). Heart and pericardium: Heart size is normal. No pericardial effusion. Vessels: Multiple tiny pulmonary emboli in the segmental/subsegmental branches, most prominently in the bilateral lower lobes. Mediastinum and sulaiman: Subcentimeter lymph nodes are seen. Chest wall and lower neck: Unremarkable. Abdomen: Unremarkable. Bones: Degenerative changes in the thoracic spine. IMPRESSION: 1. A few tiny pulmonary emboli are seen in segmental/subsegmental branches of the bilateral lungs. No right heart strain is seen. 2. Groundglass and consolidative opacities are seen compatible with infectious/inflammatory process with reactive lymphadenopathy. ACT 112: Negative or not required by law. Electronically signed by: Shane Parra M.D. 02/25/2023 3:49 PM Discharge Plan Visit Data Chief Complaint: Shortness of Breath/Dyspnea Stated Complaint: TROUBLE BREATHING, PAIN WHEN BREATHING ED Provider: Norm Sy Discharge Problem: Bilateral pulmonary embolism, Chest pain Patient Disposition: Admitted As Inpatient Discharge Instructions Interventions: ED Discharge Assessment Last Done: 02/25/23 20:29
[2023-02-25 14:37] LABS: Basophils # (auto) 0.05 K/uL (0.00-0.20); Basophils % (auto) 0.8 %; Eosinophils # (auto) 0.22 K/uL (0.00-0.50); Eosinophils % (auto) 3.5 %; Hematocrit (blood only) 44.3 % (37.0-47.0); Immature Granulocytes # (auto) 0.02 K/uL (0.01-0.20); Immature Granulocytes % (auto) 0.3 %; Lymphocytes # (auto) 1.48 K/uL (1.20-3.40); Lymphocytes % (auto) 23.6 %; Mean Corpuscular Hgb Conc 33.9 g/dL (32.0-36.0); Mean Corpuscular Volume 94.5 fL (80.0-100.0); Mean Platelet Volume 10.4 fL (9.4-12.4); Monocytes # (auto) 0.77 K/uL (0.11-0.59); Monocytes % (auto) 12.3 %; Neutrophils # (auto) 3.74 K/uL (1.40-6.50); Neutrophils % (auto) 59.5 %; Platelet Count 262 K/uL (130-400); RDW Coefficient of Variation 13.4 % (11.5-14.5); RDW Standard Deviation 46.3 fL (36.4-46.3); Red Blood Count 4.69 M/uL (4.20-5.40); White Blood Count 6.28 K/ul (4.8-10.8)
[2023-02-25] MEDS ORDERED: MoRPHine SULFATE 4 MG/ML 1 ML CARP\\VIAL IV STA (14:41)
--- NOTE | 2023-02-25 14:42 | XRay Report ---
SINGLE VIEW CHEST CLINICAL HISTORY: Atypical chest pain. FINDINGS: An AP, portable, upright chest radiograph is compared to study dated 12/22/2022. Correlation is made with chest CT dated 02/18/2022. The heart is enlarged. The pulmonary vasculature is nonconges karena. There is bibasilar scarring/atelectasis. Mild patchy airspace opacities are seen in the right mi dlung. No large pleural effusion or pneumothorax is seen. The skeletal structures are osteopenic. The bony thorax is grossly intact. IMPRESSION: 1. There are mild patchy airspace opacities in the right midlung. Correlate clinically for evidence o f an infectious/inflammatory pneumonitis. Radiographic follow-up to resolution is recommended. 2. Cardiomegaly without radiographic evidence of congestive failure. ACT 112: Negative or not required by law. Electronically signed by: Quentin Aragon M.D. 02/25/2023 2:40 PM
[2023-02-25 14:49] LABS: Albumin Globulin Ratio 1.2 (0.9-2); Albumin Level 3.8 gm/dl (3.4-5.0); BUN Creatinine Ratio 18.2 (10-20); Bilirubin,Total 0.7 mg/dl (0.2-1.0); Calcium 8.9 mg/dl (8.6-10.3); Creatinine Clr Calc Pharmacy 30.3 ml/min; Est GFR (African American) 61.5 ml/min; Est GFR (Non-African American) 53.1 ml/min; Globulin 3.1 gm/dl (2.5-4.0); Potassium 4.3 mmol/L (3.5-5.1); Total Protein 6.9 gm/dl (6.0-8.3)
[2023-02-25 14:55] LABS: Troponin I High Sensitivity 20.4 pg/ml (0-14)
[2023-02-25] MEDS ORDERED: MoRPHine SULFATE 2 MG/ML CARP ONE (14:55)
[2023-02-25] MEDS ORDERED: OPTIRAY 320 125ml IV ONE (15:19)
[2023-02-25 15:34] LABS: INR 1.2 (0.9-1.1); Partial Thromboplastin Ratio 1.1; Partial Thromboplastin Time 31.1 Seconds (21.0-31.0); Prothrombin Time 12.6 Seconds (9.0-12.0)
--- NOTE | 2023-02-25 15:50 | CT Scan Report ---
CT angio chest PE protocol CLINICAL HISTORY: Chest Pain, eval for PE TECHNIQUE: Multidetector row helical CT of the chest was performed with angiographic protocol. Mcelroy l and sagittal reformations were obtained. Coronal and sagittal MIPS were obtained from the axial shahla a set and were submitted for review. Automated dose lowering techniques and/or adjustment according to patient size were utilized for this exam. CT DOSE: 549.04 mGy.cm Comparison: Comparison is made to CT chest 02/18/2022 FINDINGS: Lungs and pleura: Groundglass and reticular opacities are seen in the upper lungs. There is consolida karena density in the lateral right midlung. There is a stable pulmonary nodule at the left lung base. ( series 4 image 56). Heart and pericardium: Heart size is normal. No pericardial effusion. Vessels: Multiple tiny pulmonary emboli in the segmental/subsegmental branches, most prominently in t he bilateral lower lobes. Mediastinum and sulaiman: Subcentimeter lymph nodes are seen. Chest wall and lower neck: Unremarkable. Abdomen: Unremarkable. Bones: Degenerative changes in the thoracic spine. IMPRESSION: 1. A few tiny pulmonary emboli are seen in segmental/subsegmental branches of the bilateral lungs. N o right heart strain is seen. 2. Groundglass and consolidative opacities are seen compatible with infectious/inflammatory process with reactive lymphadenopathy. ACT 112: Negative or not required by law. Electronically signed by: Shane Parra M.D. 02/25/2023 3:49 PM
[2023-02-25] MEDS ORDERED: Heparin IV Adult Wt-Based Standard *NO* Bolus Protocol IV ONE (16:42)
[2023-02-25] MEDS ORDERED: ACETAMINOPHEN 325 MG TAB PO STA (17:06)
--- NOTE | 2023-02-25 17:15 | History & Physical Report ---
Date of Service February 25, 2023 Assessment & Plan (1) Pulmonary emboli: Plan: -Admit to med/tele -Currently hemodynamically stable and stable on RA when an adequate pulse oximetry reading is obtained due to her poor peripheral perfusion -Patient presented to the ED with acute onset of right chest pain today upon waking -Cardiac workup has been unremarkable -CT of the chest with con shows A few tiny pulmonary emboli are seen in segmental/subsegmental branches of the bilateral lungs. No right heart strain is seen.As-well-as ground glass and consolidative opacities are seen compatible with infectious/inflammatory process with reactive lymphadenopathy. -The patient has been on Xarelto since her initial PE's were incidentally found on CT of the abd/pelvis in 2021; she denies missed doses -Was started on a heparin drip in the ED; if she remains stable tomorrow she can likely be transitioned to Warfarin -Will obtain BL venous dopplers of the LE's and routine TTE -Continue to monitor on tele and pulse oximetry -Continue prn O2 for SpO2 equal to or greater than 94%; accurate SpO2 reading has been difficult with her poor peripheral perfusion -Incentive spirometry, flutter therapy -Pain control with tylenol and tramadol -Heparin drip for DVT PPX -HH diet -AM CBC, BMP, mag, PT/INR/Aptt (2) Abnormal CT scan, chest: Plan: -Patient noted to have Groundglass and consolidative opacities are seen compatible with infectious/inflammatory process with reactive lymphadenopathy in the right middle lung with similar findings -Patient is without leukocytosis but has been experiencing a mild cough with clear sputum production -Notes that one of her grandchildren has had a respiratory illness this week -Will obtain full respiratory biofire and procal; if procal is elevated will tr eat with antibiotics -Findings could be due to infarction from new PE's, will continue to monitor and rule out infectious sources -Rest of care per PE plan (3) Chest pain: Plan: -Patient woke with right-sided chest pain this am -Patient denies pain waking her up, she just noticed it when she woke -Pain has stayed on the right chest/ribs, is constant but exacerbated with movement or inspiration -No signs of acute trauma or rash on inspection/palpation -Likely multifactorial including pain from her new PE's and musculoskeletal from recent cough -Cardiac workup has been unremarkable, vitals have been stable -Continue to monitor on tele/pulse oximetry -PRN tylenol and tramadol for now (4) Polymyalgia rheumatica: Plan: -Continue chronic prednisone therapy (5) Nocturnal hypoxemia: Plan: -Patient states that she wears O2 HS, but is unsure of the rate -Will try and get in touch with her family to confirm -Continue with PRN O2 for now (6) Pulmonary hypertension: Plan: -Following with specialist at [place] for Pulm HTN due to chronic PE's (7) GERD (gastroesophageal reflux disease): Plan: -Continue pantoprazole (8) Hypothyroid: Plan: -Continue levothyroxine Plan The patient was discussed with Dr. Miranda at the time of the admission History of Present Illness Chief Complaint: Chest pain Primary Care Provider: Gege Alexis MD Eulalia is an 82 year old female with a PMH significant for prior PE on Xarelto, migraines, chronic fatigue syndrome with fibromyalgia, exertional dyspnea with pulmonary HTN, cerebrovascular disease, PMR on prednisone, osteoporosis, asthma, hypothyroidism, GERD who presented to the [facility] ED on 02/25 with complaints of right chest pain with inspiration. She remained stable in the ED. Labs were significant for an initial high sen trop of 20 with 2 hour repeat of 19.9. Chest xray was read as "1. There are mild patchy airspace opacities in the right midlung. Correlate clinically for evidence of an infectious/inflammatory pneumonitis. Radiographic follow-up to resolution is recommended. 2. Cardiomegaly without radiographic evidence of congestive failure.". CT angio of the chest with PE protocol was read as "1. A few tiny pu lmonary emboli are seen in segmental/subsegmental branches of the bilateral lungs. No right heart strain is seen. 2. Groundglass and consolidative opacities are seen compatible with infectious/inflammatory process with reactive lymphadenopathy.". Prior to admission the patient was started on a heparin drip and given 2 mg IV morphine and 625 mg PO Tylenol. At the time of the exam the patient was lying in bed in no acute distress. She states that she had been in her normal state of health until this am when she was experiencing right chest pain. She states that the pain has been constant, sharp/stabbing, a 5/10 at baseline with exacerbations with inspiration or increased intrathoracic pressure making it a 10/10. She denies radiation of this pain and denies having this type of pain in the past. She wears oxygen at night but is unsure of how much she typically uses. When asked, she states that she has had a non-productive cough with clear drainage over the past 2-3 days. She states that she lives with her son and his family. Recently one of his children has had a cold and she thinks that she caught it. She denies missing any doses of Xarelto recently. She denies recent fever, chills, hemoptysis, nausea, vomiting, abd pain, dysuria, hematuria, melena, LE swelling/pain, and recent trauma. We discussed code status, she was clear that she would not want CPR or defibrillation in the event of cardiac arrest. In the event of respiratory failure she would want a trial of intubation. She would want her son to make medical decisions for her if she cannot make them herself. Please refer to Dr. Miranda's attestation for any changes to the treatment plan Allergies Allergy/AdvReac Type Severity Reaction Status Date / Time aspirin Allergy Intermediate GI UPSET Verified 01/27/23 10:35 codeine Allergy Intermediate GI UPSET Verified 01/27/23 10:35 erythromycin base Allergy Intermediate GI UPSET Verified 01/27/23 10:35 Home Medications Medication Instructions Recorded Confirmed Type multivitamin 1 tab PO QAM 06/10/18 02/25/23 History tramadol 50 mg tablet 50 mg PO AMHS 02/13/19 02/25/23 History latanoprost 0.005 % eye drops 1 drops ophthalmic (eye) QPM 03/03/19 02/25/23 History dorzolamide 22.3 mg-timolol 6.8 1 drp OPB BID 10/07/20 02/25/23 History mg/mL eye drops zinc sulfate 25 mg zinc (110 mg) 25 mg PO QAM 12/11/20 02/25/23 History tablet (Orazinc) duloxetine 60 mg capsule,delayed 120 mg PO QAM 01/31/21 02/25/23 History release (Cymbalta) albuterol sulfate 90 mcg/actuation 2 puff inhalation Q6H PRN 03/11/21 02/25/23 Rx aerosol inhaler shortness of breath or wheezing #3 Inhalers artificial tears(hypromellose) 0.3 1 drp ophthalmic (eye) TID 09/18/21 02/25/23 History % eye gel (Systane Gel) furosemide 20 mg tablet 20 mg PO QAM 09/18/21 02/25/23 History peg 400-propylene glycol 0.4 %-0.3 1 drp ophthalmic (eye) TID 09/18/21 02/25/23 History % eye drops (Systane Ultra) docusate sodium 100 mg capsule 100 mg PO QAM 09/23/21 02/25/23 History magnesium 250 mg tablet 250 mg PO QAM 09/23/21 02/25/23 History cholecalciferol (vitamin D3) 25 100 mcg PO QAM 11/10/21 02/25/23 History mcg (1,000 unit) tablet (Vitamin D3) trazodone 100 mg tablet 100 mg PO QPM #30 tabs 02/24/22 02/25/23 Rx gabapentin 300 mg capsule 300 mg PO HS 90 days #90 caps 12/04/22 02/25/23 Rx levothyroxine 75 mcg tablet 75 mcg PO DAILYBB #90 tabs 01/12/23 02/25/23 Rx famotidine 20 mg tablet 20 mg PO HS 01/20/23 02/25/23 History fexofenadine 180 mg tablet 180 mg PO QAM 01/20/23 02/25/23 History pantoprazole 40 mg tablet,delayed 40 mg PO BID 01/20/23 02/25/23 History release prednisone 2.5 mg tablet 2.5 mg PO QAM 01/20/23 02/25/23 History topiramate 50 mg tablet 50 mg PO BID 01/20/23 02/25/23 History metronidazole 0.75 % topical cream 1 applic topical BID PRN face 01/21/23 02/25/23 Rx cream #45 grams rivaroxaban 20 mg tablet (Xarelto) 20 mg PO HS 90 days #90 tabs 01/21/23 02/25/23 Rx fluticasone furoate 100 1 inh inhalation QPM #60 ea 02/02/23 02/25/23 Rx mcg-vilanterol 25 mcg/dose inhalation powder (Breo Ellipta) sucralfate 1 gram tablet 1 g PO QAM #90 tabs 02/02/23 02/25/23 Rx Past Med/Surg History Medical History Anxiety Aortic valve insufficiency Moderate per 07/[address] Herrera Asthma SOB with exertion--uses breo inhaler daily and rescue inhaler prn Chronic insomnia Chronic venous insufficiency Fibromyalgia GERD (gastroesophageal reflux disease) Glaucoma History of COVID-19 01/2022--hospitalized @ [facility]--no symptoms now History of gastric ulcer History of migraine History of pulmonary embolus (PE) 01/2022--on xarelto--following with Dr. 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 Family History Mother Diabetes Ovarian cancer Hypertension Kidney disease Father Diabetes Cardiac disorder Hypertension Stroke Alcohol abuse Other specified hearing loss, bilateral Aunt Breast cancer Brother Cancer Alcohol abuse Daughter , peritonitis Alcohol abuse Anxiety Dementia Family/Other Depression Anxiety Other No significant family history Denies family history of Colorectal cancer Social History Smoking Status: Never smoker Second Hand Exposure: Yes ( smoked around patient); Do You Dip or Chew Tobacco: No; Hx Alcohol Use: No Hx Substance Use: No Preferred Language: Turkish Communication Ability: Effective Visual Impairment: Limited Hearing Ability: Hard of Hearing [employer] Reading Teacher Required: No Beliefs That Will Affect Care: None marital status: / Current Living Situation: Family Current Living Situation Comment: GRAND DAUGHTER AND great grandkids live above her in same home current occupational status: retired How many Children do You have: 1 Other Information That Helps Us Care for You: No Feels Safe at Home: Yes Safety Concerns: Feels Safe At This Time Childhood Exposure to Second-Hand Smoke: No Diet: regular caffeine: No during the past year weight has: decreased > 10 lbs Dental Care, Regularly: Yes Physical Activity Frequency: 1-2 Times per Week Seatbelt Use: always Sunscreen Use: Yes Assistive Devices: Glasses and Oxygen - at Night Physical Exam Physical Exam: Physical Exam: General: In no acute distress, stated age, chronically ill appearing but non- toxic HEENT: Normocephalic, atraumatic, no scleral icterus, pupils around round, symmetrical, and reactive to light, moist mucus membranes, trachea midline, no thyromegaly Chest/Pulm: No respiratory distress, symmetrical chest expansion, rhonchi noted in the right middle lobe, otherwise CTA Cardiac: RRR, no murmurs noted Abdomen: Negative for ascites and bruising, normoactive bowel sounds, soft, non-tender to palpation throughout Musculoskeletal: No acute trauma noted on exam of the chest, patient with significant pain to palpation of the right chest without crepitus of subcutaneous emphysema Extremities: Radial, dorsalis pedis, and posterior tibial pulses are intact and symmetrical, no edema noted in the BL LE's Skin: Warm, dry, no rashes , lesions, or scars noted Neuro: Alert and oriented to person, place, month, year, and president, no focal defects, no tremors noted Psych: No acute distress, calm and cooperative during the exam Results & Data Results & Data Vital Signs (Past 12 Hours) Vital Signs Pulse Pulse Resp BP BP Pulse Ox O2 Del Method 02/25/23 15:39 70 20 117/77 95 Nasal Cannula 02/25/23 14:30 66 24 119/62 90 02/25/23 14:30 67 02/25/23 14:26 92 Room Air 02/25/23 14:01 70 20 92 Room Air 02/25/23 13:53 70 20 99/65 L 92 Room Air 02/25/23 13:53 Room Air O2 Flow Rate 02/25/23 15:39 3 02/25/23 14:30 02/25/23 14:30 02/25/23 14:26 02/25/23 14:01 02/25/23 13:53 02/25/23 13:53 Laboratory Results Abnormal lab results 02/25/23 02/25/23 02/25/23 Range/Units 14:07 14:07 14:07 [place] # (Auto) 0.77 H (0.11-0.59) K/uL PT 12.6 H (9.0-12.0) Seconds INR 1.2 H (0.9-1.1) APTT 31.1 H (21.0-31.0) Seconds Sodium 135 L (136-145) mmol/L Glucose 109 H (70-99(Fasting)) mg/dl Troponin I High Sens 20.4 H (0-14) pg/ml 02/25/23 Range/Units 16:09 [place] # (Auto) (0.11-0.59) K/uL PT (9.0-12.0) Seconds INR (0.9-1.1) APTT (21.0-31.0) Seconds Sodium (136-145) mmol/L Glucose (70-99(Fasting)) mg/dl Troponin I High Sens 19.9 H (0-14) pg/ml Diagnostic Findings Chest X-Ray 02/25/23 14:01 SINGLE VIEW CHEST CLINICAL HISTORY: Atypical chest pain. FINDINGS: An AP, portable, upright chest radiograph is compared to study dated 12/22/2022. Correlation is made with chest CT dated 02/18/2022. The heart is enlarged. The pulmonary vasculature is noncongested. There is bibasilar scarring/atelectasis. Mild patchy airspace opacities are seen in the right midlung. No large pleural effusion or pneumothorax is seen. The skeletal structures are osteopenic. The bony thorax is grossly intact. IMPRESSION: 1. There are mild patchy airspace opacities in the right midlung. Correlate clinically for evidence of an infectious/inflammatory pneumonitis. Radiographic follow-up to resolution is recommended. 2. Cardiomegaly without radiographic evidence of congestive failure. ACT 112: Negative or not required by law. Electronically signed by: Quentin Aragon M.D. 02/25/2023 2:40 PM Chest CTA 02/25/23 14:02 CT angio chest PE protocol CLINICAL HISTORY: Chest Pain, eval for PE TECHNIQUE: Multidetector row helical CT of the chest was performed with angiographic protocol. Coronal and sagittal reformations were obtained. Coronal and sagittal MIPS were obtained from the axial data set and were submitted for review. Automated dose lowering techniques and/or adjustment according to patient size were utilized for this exam. CT DOSE: 549.04 mGy.cm Comparison: Comparison is made to CT chest 02/18/2022 FINDINGS: Lungs and pleura: Groundglass and reticular opacities are seen in the upper lungs. There is consolidated density in the lateral right midlung. There is a stable pulmonary nodule at the left lung base. (series 4 image 56). Heart and pericardium: Heart size is normal. No pericardial effusion. Vessels: Multiple tiny pulmonary emboli in the segmental/subsegmental branches, most prominently in the bilateral lower lobes. Mediastinum and sulaiman: Subcentimeter lymph nodes are seen. Chest wall and lower neck: Unremarkable. Abdomen: Unremarkable. Bones: Degenerative changes in the thoracic spine. IMPRESSION: 1. A few tiny pulmonary emboli are seen in segmental/subsegmental branches of the bilateral lungs. No right heart strain is seen. 2. Groundglass and consolidative opacities are seen compatible with infectious/inflammatory process with reactive lymphadenopathy. ACT 112: Negative or not required by law. Electronically signed by: Shane Parra M.D. 02/25/2023 3:49 PM ECG Additional Comments: Sinus rhythm with Premature atrial complexes T wave abnormality, consider anterior ischemia Abnormal ECG When compared with ECG of 18-FEB-2022 21:00, Premature atrial complexes are now Present Code Status & VTE Plan Code Status Conditional code; no CPR or defibrillation in the event of cardiac arrest; would want trial of intubation in the event of respiratory failure VTE Prophylaxis Plan VTE Prophylaxis will be ordered: Yes Supervising Physician Co-Signing Physician Notes I personally saw and examined the patient. I verified all matute points and agree with Eugene Birmingham PA-C with the following exceptions and/or additions: 82 year old female presents to the ER with right sided chest pain. History of pulmonary emboli found incidentally s/p ERCP in October 2021. Complaint with Xarelto. Suspect CTEPH under pulmonology at [facility] actively being referred to [place] CTEPH program. Associated 2 days of upper respiratory symptoms with cough, nasal congestion and post nasal drip. No fever or chills. O/E A&Ox3, HS RRR, no murmurs, Chest CTAB, no wheezing/crackles/rhonchi, poor inspiratory effort due to pain, Abdo SNT A/P Acute on chronic pulmonary emboli - Dr Beebe contacted by ER physician - recommended switch to warfarin given failure of Xarelto. Will start with IV heparin drip to make sure improving. US venous doppler. Suspect consolidation seen on CT result of infarct rather than infection given negative biofire, distal area of lung and normal procalcitonin/WBC on admission. PG Care Time/CCT Total # of Minutes Spent Total Time Spent with Patient: Total time spent is greater than 50% in coordination of care (as documented) at patient's floor/unit and/or counseling patient: Coding [place] [address] INT INP/OBS CARE 3/75MIN Patient Type Established Medical Decision Making High Complexity Diagnoses Pulmonary emboli I26.[address] scan, chest R93.89 Chest pain R07.9 Chest pain type: unspecified Polymyalgia rheumatica M35.3 Nocturnal hypoxemia G47.34 Pulmonary hypertension I27.20 GERD (gastroesophageal reflux disease) K21.9 Esophagitis presence: esophagitis presence not specified Hypothyroid E03.9 (3) Chest pain Chest pain type: unspecified Qualified Code(s): R07.9 - Chest pain, unspecified (7) GERD (gastroesophageal reflux disease) Esophagitis presence: esophagitis presence not specified Qualified Code(s): K21.9 - Gastro-esophageal reflux disease without esophagitis
[2023-02-25] MEDS: HEPARIN SODIUM/DEXTROSE 25,000 UNITS/500 ML BAG IV SCH (17:30)
--- NOTE | 2023-02-25 17:55 | Electrocardiogram Report ---
Test Reason : Blood Pressure : / mmHG Vent. Rate : 076 BPM Atrial Rate : 076 BPM P-R Int : 168 ms QRS Dur : 064 ms QT Int : 410 ms P-R-T Axes : 072 072 006 degrees QTc Int : 461 ms Sinus rhythm with Premature atrial complexes T wave abnormality, consider anterior ischemia Abnormal ECG When compared with ECG of 18-FEB-2022 21:00, Premature atrial complexes are now Present Confirmed by Yao Peter ([id number]) on 02/25/2023 5:54:43 PM Referred By: Confirmed By:Carlos Peter
[2023-02-25] MEDS: traMADol HCL 50 MG TABLET PO PRN (18:08)
[2023-02-25 19:16] LABS: Adenovirus PCR Not Detected (NotDetected); Bordetella parapertussis PCR Not Detected (NotDetected); Bordetella pertussis PCR Not Detected (NotDetected); Chlamydia pneumoniae PCR Not Detected (NotDetected); Coronavirus 229E PCR Not Detected (NotDetected); Coronavirus CoV-2 (COVID19)PCR Not Detected (NotDetected); Coronavirus HKU1 PCR Not Detected (NotDetected); Coronavirus NL63 PCR Not Detected (NotDetected); Coronavirus OC43PCR Not Detected (NotDetected); Human Metapneumovirus PCR Not Detected (NotDetected); Influenza A PCR Not Detected (NotDetected); Influenza B PCR Not Detected (NotDetected); Mycoplasma pneumoniae PCR Not Detected (NotDetected); Parainfluenza Virus 1 PCR Not Detected (NotDetected); Parainfluenza Virus 2 PCR Not Detected (NotDetected); Parainfluenza Virus 3 PCR Not Detected (NotDetected); Parainfluenza Virus 4 PCR Not Detected (NotDetected); Respiratory Syncytial VirusPCR Not Detected (NotDetected); Rhinovirus/Enterovirus PCR Not Detected (NotDetected)
[2023-02-25] MEDS ORDERED: LACTATED RINGER'S 500 ML IV ONE ×2 (19:36→23:17)
[2023-02-25] MEDS ORDERED: SODIUM CHLORIDE 0.9% 500 ML IV ONE (19:37)
[2023-02-25] MEDS ORDERED: ALBUTEROL HFA 8 GM INHALER INH PRN (20:29)
[2023-02-25 20:53] LABS: Partial Thromboplastin Ratio 1.5
[2023-02-25 20:58] LABS: Partial Thromboplastin Time 43.2 Seconds (21.0-31.0)
[2023-02-25] MEDS: ARTIFICIAL TEARS OP SCH (21:23)
[2023-02-25] MEDS: FLUTICASONE/VILANTEROL 100/25MCG 14 PUFFS/INHALER INH SCH (21:23)
[2023-02-25] MEDS: TOPIRAMATE 50 MG TAB PO SCH (21:24)
[2023-02-25] MEDS: traZODone HCL 100 MG TAB PO SCH ×2 (21:24→21:29)
[2023-02-25] MEDS: LATANOPROST 0.005% OP SOLN 2.5 ML BTL OP SCH (21:24)
[2023-02-25] MEDS: DORZOLAMIDE/TIMOLOL 22.3/6.8MG/ML 10 ML BTL OPB SCH (21:24)
[2023-02-25] MEDS: FAMOTIDINE 20 MG TAB PO SCH (21:25)
[2023-02-25] MEDS: GABAPENTIN 300 MG CAP PO SCH (21:25)
[2023-02-25] MEDS: PANTOprazole 40 MG TAB PO SCH (21:25)
--- NOTE | 2023-02-25 21:50 | Ultrasound Report ---
ULTRASOUND BILATERAL LOWER EXTREMITY VENOUS CLINICAL HISTORY: Pulmonary embolus. COMPARISON STUDY: Right lower extremity venous ultrasound dated 10/18/2020. TECHNIQUE: Real-time, grayscale, and color Doppler sonography of the deep veins of the right and left lower extremity was performed from the inguinal crease to the calf. Compression and augmentation wer e utilized. FINDINGS: There is no sonographic evidence of deep venous thrombosis identified in the right or left lower extremity. The common femoral, superficial femoral, and popliteal veins are patent and normally compressible bilaterally. The greater saphenous vein and the profunda femoris vein at the junction w ith the common femoral vein are clear in both legs. The visualized calf veins are patent bilaterally. IMPRESSION: There is no sonographic evidence of deep venous thrombosis identified in the right or lef t lower extremity. ACT 112: Negative or not required by law. Electronically signed by: Quentin Aragon M.D. 02/25/2023 9:47 PM
[2023-02-25] MEDS: MoRPHine SULFATE 2 MG/ML CARP IV PRN (21:57)
[2023-02-26 05:38] LABS: BUN Creatinine Ratio 20.5 (10-20); Calcium 8.1 mg/dl (8.6-10.3); Est GFR (African American) 70.9 ml/min; Est GFR (Non-African American) 61.2 ml/min; Potassium 3.8 mmol/L (3.5-5.1)
[2023-02-26 05:40] LABS: Basophils # (auto) 0.04 K/uL (0.00-0.20); Basophils % (auto) 0.7 %; Eosinophils # (auto) 0.23 K/uL (0.00-0.50); Eosinophils % (auto) 3.8 %; Hematocrit (blood only) 38.8 % (37.0-47.0); Hemoglobin 12.9 g/dl (12.0-16.0); Immature Granulocytes # (auto) 0.03 K/uL (0.01-0.20); Immature Granulocytes % (auto) 0.5 %; Lymphocytes # (auto) 1.97 K/uL (1.20-3.40); Lymphocytes % (auto) 32.6 %; Mean Corpuscular Hemoglobin 31.9 pg (25.0-34.0); Mean Corpuscular Hgb Conc 33.2 g/dL (32.0-36.0); Mean Corpuscular Volume 95.8 fL (80.0-100.0); Mean Platelet Volume 11.1 fL (9.4-12.4); Monocytes # (auto) 1.15 K/uL (0.11-0.59); Neutrophils # (auto) 2.62 K/uL (1.40-6.50); Neutrophils % (auto) 43.4 %; Platelet Count 175 K/uL (130-400); RDW Coefficient of Variation 13.5 % (11.5-14.5); Red Blood Count 4.05 M/uL (4.20-5.40); White Blood Count 6.04 K/ul (4.8-10.8)
[2023-02-26 06:22] LABS: INR 1.2 (0.9-1.1); Partial Thromboplastin Ratio 2.7; Prothrombin Time 12.5 Seconds (9.0-12.0)
[2023-02-26] MEDS: LEVOTHYROXINE SODIUM 75 MCG TABLET PO SCH (06:29)
[2023-02-26 06:32] LABS: Partial Thromboplastin Time 77.4 Seconds (21.0-31.0)
[2023-02-26] MEDS ORDERED: WARFARIN SOD 7.5 MG TAB PO ONE (08:45)
[2023-02-26] MEDS: MoRPHine SULFATE 2 MG/ML CARP IV PRN (09:37)
[2023-02-26] MEDS: ARTIFICIAL TEARS OP SCH ×3 (10:42→20:13)
[2023-02-26] MEDS: DULoxetine HCL 60 MG CAP PO SCH (10:43)
[2023-02-26] MEDS: TOPIRAMATE 50 MG TAB PO SCH ×2 (10:43→20:11)
[2023-02-26] MEDS: SUCRALFATE 1 GM TAB PO SCH (10:43)
[2023-02-26] MEDS: PANTOprazole 40 MG TAB PO SCH ×2 (10:43→20:12)
[2023-02-26] MEDS: DORZOLAMIDE/TIMOLOL 22.3/6.8MG/ML 10 ML BTL OPB SCH ×2 (10:43→20:13)
[2023-02-26] MEDS: MAGNESIUM OXIDE 400 MG TAB PO SCH (10:44)
[2023-02-26] MEDS: predniSONE 2.5 MG TAB PO SCH (10:44)
[2023-02-26] MEDS: DOCUSATE SODIUM 100 MG CAP PO SCH (10:44)
--- NOTE | 2023-02-26 11:07 | XCELERA ---
[id number] \\[id number]
[2023-02-26 12:21] LABS: Partial Thromboplastin Ratio 2.8
[2023-02-26] MEDS: HYDROmorphone INJ 0.5 MG/0.5 ML SYR IV PRN ×2 (14:12→20:26)
--- NOTE | 2023-02-26 14:48 | Hospitalist Progress Note ---
Date of Service February 26, 2023 Assessment & Plan (1) Pulmonary emboli: Plan: Bilateral. Occurred while on Xarelto. She is now on a heparin drip and has been started on Coumadin therapy. Oxygen saturation 98% on 2 L. This will be weaned off as tolerated. (2) Abnormal CT scan, chest: Plan: Groundglass opacities noted. She has a pulmonary exam consistent with interstitial lung disease producing coarse inspiratory rales. She probably had a previous viral infection. She is a non-smoker. No intervention necessary at this time (3) Chest pain: Plan: Inspiratory right-sided pleuritic type chest pain. Pain medication ordered. No evidence of acute coronary syndrome. This is due to the acute PEs (4) Polymyalgia rheumatica: Plan: Stable. Sed rate is 22. She is prednisone dependent. This probably can be weaned off at a later date (5) Nocturnal hypoxemia: Plan: Patient states that she wears O2 AT HS. Currently 98% saturation on 2 L. This will be weaned off (6) Pulmonary hypertension: Plan: She sees a specialist at [place] for Pulm HTN due to chronic PE's (7) GERD (gastroesophageal reflux disease): Plan: Stable. Continue pantoprazole (8) Hypothyroid: Plan: Stable. Continue levothyroxine Plan Hopeful discharge to home when she has been transitioned to Coumadin therapy Admission and Anticipated Discharge Date Admission Date: February 26, 2023 Subjective Alert and oriented. Complaining of inspiratory chest discomfort due to the underlying PEs. She was on Xarelto when this occurred. She will be switched to Coumadin. Continue heparin drip for now. She is steroid-dependent due to her PMR. Groundglass opacities seen on CT scan account for her course inspiratory rales and probably are chronic. She may have had a previous viral pneumonia. She is a non-smoker. Review of Systems Review of Systems: Constitutional-no fever or chills ENT-no blurred vision, no double vision, no epistaxis, no sore throat Respiratory-no cough, no wheezing, no shortness of breath Cardiac-no palpitations, no syncope. Inspiratory right-sided sharp chest pain GI-no nausea, vomiting, diarrhea, melena, hematochezia -no urinary retention, no urinary incontinence, no dysuria, no hematuria Musculoskeletal-no joint pain, no muscle tenderness Skin-no bruising, no rashes, no pruritus Neuro-no isolated weakness, no paresthesia, no weakness Psych-no depression, no anxiety Physical Exam Physical Exam: General-alert and oriented x3, no fevers, no chills HEENT-head atraumatic and normocephalic, pupils equal and reactive to light, extraocular muscles intact Neck-no lymphadenopathy or thyromegaly, trachea midline Chest-coarse bilateral inspiratory rales. No wheezing. No rhonchi. No dullness Cardiac-regular rate and rhythm, normal S1 and S2 Abdomen-normal bowel sounds, nontender, no hepatosplenomegaly Extremities-no cyanosis, clubbing, or edema Neuro-cranial nerves II through XII intact, motor and sensory function within normal limits, strength symmetrical , no focal deficits Psych-normal affect, normal mood Results & Data Results & Data Vital Signs (Past 12 Hours) Vital Signs Temp Pulse Pulse Resp BP Pulse Ox O2 Del Method 02/26/23 13:17 Nasal Cannula 02/26/23 12:45 82 113/63 02/26/23 11:22 36.4 C L 89 18 97/61 L 94 Nasal Cannula 02/26/23 09:00 76 02/26/23 08:45 36.7 C 82 18 122/70 95 Nasal Cannula 02/26/23 06:52 59 L O2 Flow Rate 02/26/23 13:17 3 02/26/23 12:45 02/26/23 11:22 02/26/23 09:00 02/26/23 08:45 3 02/26/23 06:52 Laboratory Results 02/26/23 04:24 02/26/23 04:24 PG Care Time/CCT Total # of Minutes Spent Total Time Spent with Patient: Total time spent is greater than 50% in coordination of care (as documented) at patient's floor/unit and/or counseling patient: Coding Level of Care Code 52167 SUB INP/OBS CARE 3/50MIN Diagnoses Pulmonary emboli I26.[address] scan, chest R93.89 Chest pain R07.9 Chest pain type: unspecified Polymyalgia rheumatica M35.3 Nocturnal hypoxemia G47.34 Pulmonary hypertension I27.20 GERD (gastroesophageal reflux disease) K21.9 Esophagitis presence: esophagitis presence not specified Hypothyroid E03.9 (3) Chest pain Chest pain type: unspecified Qualified Code(s): R07.9 - Chest pain, unspecified (7) GERD (gastroesophageal reflux disease) Esophagitis presence: esophagitis presence not specified Qualified Code(s): K21.9 - Gastro-esophageal reflux disease without esophagitis
[2023-02-26] MEDS: traZODone HCL 100 MG TAB PO SCH (20:11)
[2023-02-26] MEDS: GABAPENTIN 300 MG CAP PO SCH (20:12)
[2023-02-26] MEDS: LATANOPROST 0.005% OP SOLN 2.5 ML BTL OP SCH (20:12)
[2023-02-26] MEDS: FAMOTIDINE 20 MG TAB PO SCH (20:12)
[2023-02-26] MEDS: FLUTICASONE/VILANTEROL 100/25MCG 14 PUFFS/INHALER INH SCH (20:14)
[2023-02-26 20:42] LABS: Partial Thromboplastin Ratio 2.5
[2023-02-26 20:45] LABS: Partial Thromboplastin Time 70.6 Seconds (21.0-31.0)
[2023-02-27] MEDS: HEPARIN SODIUM/DEXTROSE 25,000 UNITS/500 ML BAG IV SCH (01:40)
[2023-02-27 04:28] LABS: Basophils # (auto) 0.05 K/uL (0.00-0.20); Eosinophils # (auto) 0.21 K/uL (0.00-0.50); Eosinophils % (auto) 4.3 %; Hematocrit (blood only) 36.6 % (37.0-47.0); Hemoglobin 12.3 g/dl (12.0-16.0); Immature Granulocytes # (auto) 0.02 K/uL (0.01-0.20); Immature Granulocytes % (auto) 0.4 %; Lymphocytes # (auto) 1.67 K/uL (1.20-3.40); Lymphocytes % (auto) 34.5 %; Mean Corpuscular Hemoglobin 31.5 pg (25.0-34.0); Mean Corpuscular Hgb Conc 33.6 g/dL (32.0-36.0); Mean Corpuscular Volume 93.8 fL (80.0-100.0); Mean Platelet Volume 10.2 fL (9.4-12.4); Monocytes # (auto) 0.72 K/uL (0.11-0.59); Monocytes % (auto) 14.9 %; Neutrophils # (auto) 2.17 K/uL (1.40-6.50); Neutrophils % (auto) 44.9 %; Platelet Count 212 K/uL (130-400); RDW Coefficient of Variation 13.4 % (11.5-14.5); White Blood Count 4.84 K/ul (4.8-10.8)
[2023-02-27 04:34] LABS: Calcium 8.4 mg/dl (8.6-10.3); Est GFR (African American) 70.9 ml/min; Est GFR (Non-African American) 61.2 ml/min; Potassium 3.6 mmol/L (3.5-5.1)
[2023-02-27 05:03] LABS: INR 1.4 (0.9-1.1); Partial Thromboplastin Ratio 3.4; Prothrombin Time 15.1 Seconds (9.0-12.0)
[2023-02-27 05:10] LABS: Partial Thromboplastin Time 95.2 Seconds (21.0-31.0)
[2023-02-27] MEDS: LEVOTHYROXINE SODIUM 75 MCG TABLET PO SCH (06:21)
[2023-02-27] MEDS: HYDROmorphone INJ 0.5 MG/0.5 ML SYR IV PRN ×5 (06:32→20:16)
[2023-02-27] MEDS: DULoxetine HCL 60 MG CAP PO SCH (08:10)
[2023-02-27] MEDS: predniSONE 2.5 MG TAB PO SCH (08:11)
[2023-02-27] MEDS: SUCRALFATE 1 GM TAB PO SCH (08:11)
[2023-02-27] MEDS: TOPIRAMATE 50 MG TAB PO SCH ×2 (08:11→20:19)
[2023-02-27] MEDS: ARTIFICIAL TEARS OP SCH ×3 (08:12→20:18)
[2023-02-27] MEDS: PANTOprazole 40 MG TAB PO SCH ×2 (08:12→20:19)
[2023-02-27] MEDS: DORZOLAMIDE/TIMOLOL 22.3/6.8MG/ML 10 ML BTL OPB SCH ×2 (08:12→20:18)
[2023-02-27] MEDS: DOCUSATE SODIUM 100 MG CAP PO SCH ×2 (09:01→20:17)
[2023-02-27] MEDS: MAGNESIUM OXIDE 400 MG TAB PO SCH (09:02)
[2023-02-27] MEDS ORDERED: WARFARIN SOD 7.5 MG TAB PO ONE (10:13)
[2023-02-27 13:15] LABS: Partial Thromboplastin Ratio 1.7
[2023-02-27] MEDS: traMADol HCL 50 MG TABLET PO PRN (13:35)
[2023-02-27] MEDS: POLYETHYLENE (MIRALAX) 17 GM PACK PO SCH (14:13)
--- NOTE | 2023-02-27 15:42 | Hospitalist Progress Note ---
Date of Service February 27, 2023 Assessment & Plan (1) Pulmonary emboli: Plan: Bilateral. Occurred while on Xarelto. She is now on a heparin drip and has been started on Coumadin therapy. INR 1.4 today, February 27 (2) Abnormal CT scan, chest: Plan: Groundglass opacities noted. She has a pulmonary exam consistent with interstitial lung disease producing coarse inspiratory rales. She probably had a previous viral infection. She is a non-smoker. No intervention necessary at this time (3) Acute respiratory failure with hypoxia: Plan: Continue oxygen per nasal cannula to keep saturation greater than 90%. Wean off as tolerated (4) Chest pain: Plan: Inspiratory right-sided pleuritic type chest pain. Pain medication ordered. No evidence of acute coronary syndrome. This is due to the acute PEs (5) Polymyalgia rheumatica: Plan: Stable. Sed rate is 22. She is prednisone dependent. This probably can be weaned off at a later date (6) Nocturnal hypoxemia: Plan: Patient states that she wears O2 AT HS. Currently 98% saturation on 2 L. This will be weaned off as tolerated (7) Pulmonary hypertension: Plan: She sees a specialist at [place] for Pulm HTN due to chronic PE's (8) GERD (gastroesophageal reflux disease): Plan: Stable. Continue pantoprazole (9) Hypothyroid: Plan: Stable. Continue levothyroxine Plan To be determined. OT and PT assessments requested. I suspect she will benefit from SNF placement at the time of discharge before she can go home. Admission and Anticipated Discharge Date Admission Date: February 26, 2023 Subjective Alert and oriented. Daughter is at the bedside. She continues to have right- sided pleuritic type chest pain. She is requiring 3 L oxygen currently. OT and PT assessments have been requested. She is constipated from the pain medication. Coumadinization continues. INR up slightly to 1.4. Continue 7.5 mg dose today. She remains on a heparin drip until the INR is therapeutic Review of Systems Review of Systems: Constitutional-no fever or chills ENT-no blurred vision, no double vision, no epistaxis, no sore throat Respiratory-no cough, no wheezing, no shortness of breath Cardiac-no palpitations, no syncope. Inspiratory right-sided sharp chest pain GI-no nausea, vomiting, diarrhea, melena, hematochezia -no urinary retention, no urinary incontinence, no dysuria, no hematuria Musculoskeletal-no joint pain, no muscle tenderness Skin-no bruising, no rashes, no pruritus Neuro-no isolated weakness, no paresthesia, no weakness Psych-no depression, no anxiety Physical Exam Physical Exam: General-alert and oriented x3, no fevers, no chills HEENT-head atraumatic and normocephalic, pupils equal and reactive to light, extraocular muscles intact Neck-no lymphadenopathy or thyromegaly, trachea midline Chest-coarse bilateral inspiratory rales. No wheezing. No rhonchi. No dullness Cardiac-regular rate and rhythm, normal S1 and S2 Abdomen-normal bowel sounds, nontender, no hepatosplenomegaly Extremities-no cyanosis, clubbing, or edema Neuro-cranial nerves II through XII intact, motor and sensory function within normal limits, strength symmetrical , no focal deficits Psych-normal affect, normal mood Results & Data Results & Data Vital Signs (Past 12 Hours) Vital Signs Temp Pulse Pulse Resp BP Pulse Ox O2 Del Method 02/27/23 15:31 36.8 C 59 L 18 97/57 L 94 Nasal Cannula 02/27/23 15:30 59 L 02/27/23 11:43 36.5 C 78 18 94/59 L 95 Nasal Cannula 02/27/23 08:52 Nasal Cannula 02/27/23 08:33 36.6 C 63 18 92/56 L 94 Room Air 02/27/23 08:33 02/27/23 07:44 57 L 02/27/23 07:42 64 O2 Del Method O2 Flow Rate 02/27/23 15:31 3 02/27/23 15:30 02/27/23 11:43 3 02/27/23 08:52 3 02/27/23 08:33 02/27/23 08:33 Room Air 02/27/23 07:44 02/27/23 07:42 Laboratory Results 02/27/23 03:51 02/27/23 03:51 PG Care Time/CCT Total # of Minutes Spent Total Time Spent with Patient: Total time spent is greater than 50% in coordination of care (as documented) at patient's floor/unit and/or counseling patient: Coding Level of Care Code 77105 SUB INP/OBS CARE 3/50MIN Diagnoses Pulmonary emboli I26.[address] scan, chest R93.89 Acute respiratory failure with hypoxia J96.01 Chest pain R07.9 Chest pain type: unspecified Polymyalgia rheumatica M35.3 Nocturnal hypoxemia G47.34 Pulmonary hypertension I27.20 GERD (gastroesophageal reflux disease) K21.9 Esophagitis presence: esophagitis presence not specified Hypothyroid E03.9 (4) Chest pain Chest pain type: unspecified Qualified Code(s): R07.9 - Chest pain, unspecified (8) GERD (gastroesophageal reflux disease) Esophagitis presence: esophagitis presence not specified Qualified Code(s): K21.9 - Gastro-esophageal reflux disease without esophagitis
[2023-02-27] MEDS: LATANOPROST 0.005% OP SOLN 2.5 ML BTL OP SCH (20:18)
[2023-02-27] MEDS: FLUTICASONE/VILANTEROL 100/25MCG 14 PUFFS/INHALER INH SCH (20:19)
[2023-02-27] MEDS: traZODone HCL 100 MG TAB PO SCH (20:19)
[2023-02-27] MEDS: GABAPENTIN 300 MG CAP PO SCH (20:20)
[2023-02-27] MEDS: FAMOTIDINE 20 MG TAB PO SCH (20:20)
[2023-02-28] MEDS: HEPARIN SODIUM/DEXTROSE 25,000 UNITS/500 ML BAG IV SCH (04:15)
[2023-02-28] MEDS: HYDROmorphone INJ 0.5 MG/0.5 ML SYR IV PRN ×3 (04:43→21:18)
[2023-02-28] MEDS: LEVOTHYROXINE SODIUM 75 MCG TABLET PO SCH (04:44)
[2023-02-28 07:41] LABS: Basophils # (auto) 0.03 K/uL (0.00-0.20); Basophils % (auto) 0.5 %; Eosinophils # (auto) 0.23 K/uL (0.00-0.50); Eosinophils % (auto) 4.1 %; Hematocrit (blood only) 39.1 % (37.0-47.0); Immature Granulocytes # (auto) 0.03 K/uL (0.01-0.20); Immature Granulocytes % (auto) 0.5 %; Lymphocytes # (auto) 1.64 K/uL (1.20-3.40); Lymphocytes % (auto) 29.5 %; Mean Corpuscular Hemoglobin 32.1 pg (25.0-34.0); Mean Corpuscular Hgb Conc 33.2 g/dL (32.0-36.0); Mean Corpuscular Volume 96.5 fL (80.0-100.0); Mean Platelet Volume 10.1 fL (9.4-12.4); Monocytes % (auto) 14.4 %; Neutrophils # (auto) 2.82 K/uL (1.40-6.50); Platelet Count 219 K/uL (130-400); RDW Coefficient of Variation 13.3 % (11.5-14.5); RDW Standard Deviation 47.5 fL (36.4-46.3); Red Blood Count 4.05 M/uL (4.20-5.40); White Blood Count 5.55 K/ul (4.8-10.8)
[2023-02-28 08:11] LABS: INR 3.7 (0.9-1.1); Prothrombin Time 36.9 Seconds (9.0-12.0)
[2023-02-28 08:20] LABS: BUN Creatinine Ratio 14.4 (10-20); Calcium 8.6 mg/dl (8.6-10.3); Creatinine Clr Calc Pharmacy 33.1 ml/min; Est GFR (Non-African American) 59.5 ml/min; Potassium 4.5 mmol/L (3.5-5.1)
[2023-02-28 08:32] LABS: Partial Thromboplastin Ratio 2.9
[2023-02-28 08:35] LABS: Partial Thromboplastin Time 80.9 Seconds (21.0-31.0)
[2023-02-28] MEDS: predniSONE 2.5 MG TAB PO SCH (08:47)
[2023-02-28] MEDS: SUCRALFATE 1 GM TAB PO SCH (08:48)
[2023-02-28] MEDS: PANTOprazole 40 MG TAB PO SCH ×2 (08:48→21:19)
[2023-02-28] MEDS: ARTIFICIAL TEARS OP SCH ×3 (08:49→21:18)
[2023-02-28] MEDS: DULoxetine HCL 60 MG CAP PO SCH (08:49)
[2023-02-28] MEDS: DOCUSATE SODIUM 100 MG CAP PO SCH ×2 (08:49→21:19)
[2023-02-28] MEDS: DORZOLAMIDE/TIMOLOL 22.3/6.8MG/ML 10 ML BTL OPB SCH ×2 (08:50→21:18)
[2023-02-28] MEDS: MAGNESIUM OXIDE 400 MG TAB PO SCH (08:50)
[2023-02-28] MEDS: TOPIRAMATE 50 MG TAB PO SCH ×2 (08:51→21:19)
[2023-02-28] MEDS: POLYETHYLENE (MIRALAX) 17 GM PACK PO SCH (08:56)
--- NOTE | 2023-02-28 16:21 | Hospitalist Progress Note ---
Date of Service February 28, 2023 Assessment & Plan (1) Pulmonary emboli: Plan: Bilateral, segmental and subsegmental With a history of CTEPH and follows with pulmonology at [place] These new PEs occurred while on Xarelto which is concerning. She currently seems to be in the middle of a work-up to rule out malignancy and was recently off her Xarelto for 2 days to have a colonoscopy with polypectomy which proved to be benign. She also was off her Xarelto for 2 more days more recently for some sort of IR guided biopsy. This is presumably of the right retroperitoneal lymphadenopathy noted on recent abdominal MRI in November? But unclear. The patient thinks that she was having a biopsy of an adrenal gland mass? Dopplers of bilateral lower extremities negative for DVT on 02/25 With significant right popliteal fossa pain and positive Homans' sign on 02/28- check venous Doppler right lower extremity She is very sedentary. [employer] negative for COVID and other viruses Her senior case manager was ordering antiphospholipid antibodies for her-we will need to follow-up to see if these were drawn Echocardiogram here with mild RV dilatation, mild to moderate AI, and RVSP greater than 60 mmHg -She considered to be a failure of Xarelto and is now on a heparin drip and has been started on Coumadin therapy -INR jumped up very quickly and is now at 3.7 after 2 doses of Coumadin -Stop heparin drip -Follow INR in the morning, hold Coumadin for today -Follow-up with her system support specialist in [place] after discharge as they are considering catheter directed therapy for her CTEPH (2) Abnormal CT scan, chest: Plan: She has a consolidative density in the lateral right midlung, and groundglass and reticular opacities in the upper lungs She is coughing up some sputum, no hemoptysis She is afebrile and no leukocytosis, procalcitonin negative-do not suspect bacterial pneumonia, but rather possible post PE inflammation? Follow-up with pulmonology after discharge (3) Acute respiratory failure with hypoxia: Plan: Secondary to PEs Continue oxygen per nasal cannula to keep saturation greater than 90%. Wean off as tolerated (4) Chest pain: Plan: Inspiratory right-sided pleuritic type chest pain. No evidence of acute coronary syndrome. This is due to the acute PEs -Continue IV Dilaudid as needed and add oxycodone as needed for oral option (5) Polymyalgia rheumatica: Plan: Stable. Sed rate is 22. She is prednisone dependent. This probably can be weaned off at a later date Continue prednisone 2.5 Mg p.o. once daily (6) Nocturnal hypoxemia: Plan: Patient states that she wears O2 HS for pulmonary hypertension (7) Pulmonary hypertension: Plan: She sees a specialist at [place] for Pulm HTN due to chronic PE's (8) GERD (gastroesophageal reflux disease): Plan: Stable. Continue pantoprazole (9) Hypothyroid: Plan: Stable. Continue levothyroxine TSH normal in 07/2022 Migraine headaches-continue Topamax and gabapentin for prophylaxis Plan DVT prophylaxis-on heparin drip/Coumadin Disposition-continued stay until INR stabilizes, pain is controlled. PT/OT consults placed Admission and Anticipated Discharge Date Admission Date: February 26, 2023 Subjective Patient reports started having fairly severe pain behind her right knee since yesterday. The pain is worse with movement of her ankle and flexing the calf. She has never had anything like this before. She is also still having pain with deep inspiration on the right side of her chest. She does report that she was off of her Xarelto for a couple of days for colonoscopy and then was off her Xarelto again for couple of days for an adrenal gland biopsy which then got canceled. She does report she is coughing up some sputum but she is swallowing it. She does not believe there is any blood in her sputum. Telemetry with normal sinus rhythm with rates in the 60s to 70s Physical Exam Constitutional: WD/WN, vitals as above Neck: trachea midline, no thyromegaly Respiratory: normal respiratory effort and + cough Auscultation: + diminished lung sounds (At right lung base); no crackles, no rhonchi and no wheezes Cardiovascular: RRR, no murmur, no edema Chest (Breasts): Chest: normal inspection of chest Gastrointestinal (Abdomen): normal bowel sounds, soft, nontender, no hepatosplenomegaly Musculoskeletal: Extremities: extremities normal to inspection; no cyanosis and no clubbing Positive tenderness to palpation at the right proximal gastrocnemius and popliteal area, positive Homans' sign on the right Skin: no rashes, warm and dry Neurologic: moves all extremities and awake; no focal motor deficits Psychiatric: A+Ox3, euthymic affect Lymphatic: no lymphedema Results & Data Results & Data Vital Signs (Past 12 Hours) Vital Signs Temp Pulse Pulse Resp BP Pulse Ox O2 Del Method 02/28/23 16:12 85 02/28/23 12:24 36.6 C 71 18 97/61 L 92 Nasal Cannula 02/28/23 08:00 Nasal Cannula 02/28/23 08:07 36.6 C 66 16 94/58 L 93 Nasal Cannula 02/28/23 07:35 66 O2 Flow Rate 02/28/23 16:12 02/28/23 12:24 3 02/28/23 08:00 3 02/28/23 08:07 3 02/28/23 07:35 Laboratory Results CBC, BMP reviewed PG Care Time/CCT Total # of Minutes Spent Total Time Spent with Patient: Total time spent is greater than 50% in coordination of care (as documented) at patient's floor/unit and/or counseling patient: Coding Level of Care Code 64328 SUB INP/OBS CARE 3/50MIN Diagnoses Pulmonary emboli I26.[address] scan, chest R93.89 Acute respiratory failure with hypoxia J96.01 Chest pain R07.9 Chest pain type: unspecified Polymyalgia rheumatica M35.3 Nocturnal hypoxemia G47.34 Pulmonary hypertension I27.20 GERD (gastroesophageal reflux disease) K21.9 Esophagitis presence: esophagitis presence not specified Hypothyroid E03.9 (4) Chest pain Chest pain type: unspecified Qualified Code(s): R07.9 - Chest pain, unspecified (8) GERD (gastroesophageal reflux disease) Esophagitis presence: esophagitis presence not specified Qualified Code(s): K21.9 - Gastro-esophageal reflux disease without esophagitis
[2023-02-28] MEDS: oxyCODONE HCL IR 5 MG TAB (IMMEDIATE RELEASE) PO PRN (18:15)
[2023-02-28] MEDS: FLUTICASONE/VILANTEROL 100/25MCG 14 PUFFS/INHALER INH SCH (21:17)
[2023-02-28] MEDS: LATANOPROST 0.005% OP SOLN 2.5 ML BTL OP SCH (21:18)
[2023-02-28] MEDS: traZODone HCL 100 MG TAB PO SCH (21:19)
[2023-02-28] MEDS: FAMOTIDINE 20 MG TAB PO SCH (21:19)
[2023-02-28] MEDS: GABAPENTIN 300 MG CAP PO SCH (21:19)
[2023-03-01] MEDS: LEVOTHYROXINE SODIUM 75 MCG TABLET PO SCH (05:05)
[2023-03-01 08:18] LABS: Basophils # (auto) 0.04 K/uL (0.00-0.20); Basophils % (auto) 0.6 %; Hematocrit (blood only) 37.1 % (37.0-47.0); Hemoglobin 12.6 g/dl (12.0-16.0); Immature Granulocytes # (auto) 0.01 K/uL (0.01-0.20); Immature Granulocytes % (auto) 0.1 %; Lymphocytes # (auto) 1.56 K/uL (1.20-3.40); Lymphocytes % (auto) 23.2 %; Mean Corpuscular Hemoglobin 32.2 pg (25.0-34.0); Mean Corpuscular Volume 94.9 fL (80.0-100.0); Monocytes # (auto) 0.94 K/uL (0.11-0.59); Neutrophils # (auto) 3.96 K/uL (1.40-6.50); Neutrophils % (auto) 59.1 %; Platelet Count 212 K/uL (130-400); RDW Coefficient of Variation 13.3 % (11.5-14.5); RDW Standard Deviation 46.5 fL (36.4-46.3); Red Blood Count 3.91 M/uL (4.20-5.40); White Blood Count 6.71 K/ul (4.8-10.8)
[2023-03-01 08:38] LABS: BUN Creatinine Ratio 15.9 (10-20); Calcium 8.7 mg/dl (8.6-10.3); Creatinine Clr Calc Pharmacy 36.7 ml/min; Est GFR (African American) 77.2 ml/min; Est GFR (Non-African American) 66.6 ml/min; Potassium 4.2 mmol/L (3.5-5.1)
[2023-03-01 09:00] LABS: INR 4.3 (0.9-1.1); Prothrombin Time 43.3 Seconds (9.0-12.0)
[2023-03-01] MEDS: SUCRALFATE 1 GM TAB PO SCH (09:09)
[2023-03-01] MEDS: DOCUSATE SODIUM 100 MG CAP PO SCH ×2 (09:09→20:19)
[2023-03-01] MEDS: TOPIRAMATE 50 MG TAB PO SCH ×2 (09:10→20:19)
[2023-03-01] MEDS: predniSONE 2.5 MG TAB PO SCH (09:10)
[2023-03-01] MEDS: PANTOprazole 40 MG TAB PO SCH ×2 (09:10→20:19)
[2023-03-01] MEDS: MAGNESIUM OXIDE 400 MG TAB PO SCH (09:10)
[2023-03-01] MEDS: DULoxetine HCL 60 MG CAP PO SCH (09:11)
[2023-03-01] MEDS: DORZOLAMIDE/TIMOLOL 22.3/6.8MG/ML 10 ML BTL OPB SCH ×2 (09:11→20:18)
[2023-03-01] MEDS: ARTIFICIAL TEARS OP SCH ×3 (09:13→20:20)
[2023-03-01] MEDS: POLYETHYLENE (MIRALAX) 17 GM PACK PO SCH (09:13)
--- NOTE | 2023-03-01 11:06 | Ultrasound Report ---
ULTRASOUND RIGHT LOWER EXTREMITY VENOUS CLINICAL HISTORY: Right calf pain. COMPARISON STUDY: Bilateral lower extremity venous ultrasound dated 02/25/2023. TECHNIQUE: Real-time, grayscale, and color Doppler sonography of the deep veins of the right lower ex tremity was performed from the inguinal crease to the calf. Compression and augmentation were utilize d. FINDINGS: There is no sonographic evidence of deep venous thrombosis identified in the right lower ex tremity. The common femoral, superficial femoral, and popliteal veins are patent and normally rick sible. The greater saphenous vein and the profunda femoris vein at the junction with the common femor al vein are clear. The visualized calf veins are patent. A popliteal cyst measures 3.3 x 0.5 x 2.0 cm . IMPRESSION: 1. There is no sonographic evidence of deep venous thrombosis identified in the right lower extremity . 2. Fatima's cyst. ACT 112: Negative or not required by law. Electronically signed by: Quentin Aragon M.D. 03/01/2023 11:04 AM
[2023-03-01] MEDS: oxyCODONE HCL IR 5 MG TAB (IMMEDIATE RELEASE) PO PRN ×2 (12:10→20:19)
--- NOTE | 2023-03-01 17:10 | Hospitalist Progress Note ---
Date of Service March 01, 2023 Assessment & Plan (1) Pulmonary emboli: Plan: Bilateral, segmental and subsegmental With a history of CTEPH and follows with pulmonology at [place] These new PEs occurred while on Xarelto which is concerning. She currently seems to be in the middle of a work-up to rule out malignancy and was recently off her Xarelto for 2 days to have a colonoscopy with polypectomy which proved to be benign. She also was off her Xarelto for 2 more days more recently for IR guided biopsy of a retroperitoneal LN noted on recent abdominal MRI but the biopsy was cancelled then last minute and has not yet been rescheduled. Dopplers of bilateral lower extremities negative for DVT on 02/25 and again neg of RLE on 03/01 (repeated for acute pain, found to have Fatima's cyst) She is very sedentary. Bio[employer] negative for COVID and other viruses Her machine baster was ordering antiphospholipid antibodies for her-we will need to follow-up to see if these were drawn Echocardiogram here with mild RV dilatation, mild to moderate AI, and RVSP greater than 60 mmHg -She considered to be a failure of Xarelto and was placed on a heparin drip and has been started on Coumadin therapy -INR jumped up very quickly and is now up even higher at 4.3 after 2 doses of Coumadin -Stopped heparin drip -Follow INR in the morning, continue to hold Coumadin for today -Follow-up with her environmental management specialist in [place] after discharge as they are considering catheter directed therapy for her CTEPH -will need to have the RP LN biopsy at some point in the future to r/o malignancy-should have Oncology follow up; perhaps a PET scan would be a better test for her now to avoid having to hold her anticoagulation (2) Abnormal CT scan, chest: Plan: She has a consolidative density in the lateral right midlung, and groundglass and reticular opacities in the upper lungs She is coughing up some sputum, no hemoptysis She is afebrile and no leukocytosis, procalcitonin negative-do not suspect bacterial pneumonia, but rather possible post PE inflammation? Follow-up with pulmonology after discharge Pleuritic chest pain is now improving (3) Acute respiratory failure with hypoxia: Plan: Secondary to PEs now weaned off O2 (4) Chest pain: Plan: Inspiratory right-sided pleuritic type chest pain now much improved. No evidence of acute coronary syndrome. This is due to the acute PEs -Continue IV Dilaudid as needed and oxycodone as needed for oral option (5) Polymyalgia rheumatica: Plan: Stable. Sed rate is 22. She is prednisone dependent. Continue prednisone 2.5 Mg p.o. once daily Follows with Rheum Dr. 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 Continue pantoprazole (9) Hypothyroid: Plan: Stable. Continue levothyroxine TSH normal in 07/2022 Migraine headaches-continue Topamax and gabapentin for prophylaxis Plan DVT prophylaxis-Coumadin Disposition-continued stay until INR stabilizes, pain is controlled. PT/OT consults placed-needs rehab hopefully early this week called and left for granddaughter on 03/01 Admission and Anticipated Discharge Date Admission Date: February 26, 2023 Anticipated date of discharge: 03/02/23 Subjective Pt feeling better today. Less pain in right chest and less pain in back of right knee. Has some pain now in left arch of foot she thinks from not being very mobile here in hospital. Tele with NSR rates 70-80s Physical Exam Constitutional: WD/WN, vitals as above Neck: trachea midline, no thyromegaly Respiratory: normal respiratory effort; no cough Auscultation: + diminished lung sounds (At right lung base); no crackles, no rhonchi and no wheezes Cardiovascular: RRR, no murmur, no edema Chest (Breasts): Chest: normal inspection of chest Gastrointestinal (Abdomen): normal bowel sounds, soft, nontender, no hepatosplenomegaly Musculoskeletal: Extremities: extremities normal to inspection; no cyanosis and no clubbing +TTP left foot arch Skin: no rashes, warm and dry Neurologic: moves all extremities and awake; no focal motor deficits Psychiatric: A+Ox3, euthymic affect Lymphatic: no lymphedema Results & Data Results & Data Vital Signs (Past 12 Hours) Vital Signs Temp Pulse Pulse Resp BP Pulse Ox O2 Del Method 03/01/23 15:54 36.5 C 80 18 110/65 96 Room Air 10/08/23 15:02 88 03/01/23 12:04 36.7 C 77 16 103/62 93 Nasal Cannula 03/01/23 08:25 Nasal Cannula 03/01/23 08:23 36.6 C 80 20 110/68 93 Nasal Cannula 03/01/23 07:19 64 O2 Flow Rate 03/01/23 15:54 03/01/23 15:02 03/01/23 12:04 3 03/01/23 08:25 3 03/01/23 08:23 3 03/01/23 07:19 Laboratory Results CBC, INR, BMP reviewed Diagnostic Findings Venous Doppler RLE neg for DVT PG Care Time/CCT Total # of Minutes Spent Total Time Spent with Patient: Total time spent is greater than 50% in coordination of care (as documented) at patient's floor/unit and/or counseling patient: Coding Level of Care Code 61900 SUB INP/OBS CARE 2/35MIN Diagnoses Pulmonary emboli I26.[address] scan, chest R93.89 Acute respiratory failure with hypoxia J96.01 Chest pain R07.9 Chest pain type: unspecified Polymyalgia rheumatica M35.3 Nocturnal hypoxemia G47.34 Pulmonary hypertension I27.20 GERD (gastroesophageal reflux disease) K21.9 Esophagitis presence: esophagitis presence not specified Hypothyroid E03.9 (4) Chest pain Chest pain type: unspecified Qualified Code(s): R07.9 - Chest pain, unspecified (8) GERD (gastroesophageal reflux disease) Esophagitis presence: esophagitis presence not specified Qualified Code(s): K21.9 - Gastro-esophageal reflux disease without esophagitis
[2023-03-01] MEDS: FLUTICASONE/VILANTEROL 100/25MCG 14 PUFFS/INHALER INH SCH (20:18)
[2023-03-01] MEDS: GABAPENTIN 300 MG CAP PO SCH (20:19)
[2023-03-01] MEDS: traZODone HCL 100 MG TAB PO SCH (20:19)
[2023-03-01] MEDS: LATANOPROST 0.005% OP SOLN 2.5 ML BTL OP SCH (20:19)
[2023-03-01] MEDS: FAMOTIDINE 20 MG TAB PO SCH (20:19)
[2023-03-02] MEDS: LEVOTHYROXINE SODIUM 75 MCG TABLET PO SCH (05:18)
[2023-03-02] MEDS: oxyCODONE HCL IR 5 MG TAB (IMMEDIATE RELEASE) PO PRN ×3 (05:18→21:45)
[2023-03-02 08:04] LABS: Basophils # (auto) 0.03 K/uL (0.00-0.20); Basophils % (auto) 0.5 %; Eosinophils # (auto) 0.18 K/uL (0.00-0.50); Eosinophils % (auto) 3.2 %; Hematocrit (blood only) 36.9 % (37.0-47.0); Hemoglobin 12.5 g/dl (12.0-16.0); Immature Granulocytes # (auto) 0.02 K/uL (0.01-0.20); Immature Granulocytes % (auto) 0.4 %; Lymphocytes # (auto) 1.16 K/uL (1.20-3.40); Lymphocytes % (auto) 20.8 %; Mean Corpuscular Hemoglobin 31.5 pg (25.0-34.0); Mean Corpuscular Hgb Conc 33.9 g/dL (32.0-36.0); Mean Corpuscular Volume 92.9 fL (80.0-100.0); Mean Platelet Volume 10.1 fL (9.4-12.4); Monocytes # (auto) 0.84 K/uL (0.11-0.59); Neutrophils # (auto) 3.36 K/uL (1.40-6.50); Neutrophils % (auto) 60.1 %; Platelet Count 212 K/uL (130-400); RDW Coefficient of Variation 13.3 % (11.5-14.5); RDW Standard Deviation 45.8 fL (36.4-46.3); Red Blood Count 3.97 M/uL (4.20-5.40); White Blood Count 5.59 K/ul (4.8-10.8)
[2023-03-02] MEDS: PANTOprazole 40 MG TAB PO SCH ×2 (08:28→21:22)
[2023-03-02] MEDS: TOPIRAMATE 50 MG TAB PO SCH ×2 (08:28→21:21)
[2023-03-02] MEDS: DOCUSATE SODIUM 100 MG CAP PO SCH ×2 (08:28→21:22)
[2023-03-02] MEDS: ARTIFICIAL TEARS OP SCH ×3 (08:28→21:23)
[2023-03-02] MEDS: predniSONE 2.5 MG TAB PO SCH (08:29)
[2023-03-02] MEDS: DULoxetine HCL 60 MG CAP PO SCH (08:29)
[2023-03-02] MEDS: SUCRALFATE 1 GM TAB PO SCH (08:29)
[2023-03-02] MEDS: DORZOLAMIDE/TIMOLOL 22.3/6.8MG/ML 10 ML BTL OPB SCH ×2 (08:29→21:21)
[2023-03-02] MEDS: MAGNESIUM OXIDE 400 MG TAB PO SCH (08:29)
[2023-03-02] MEDS: POLYETHYLENE (MIRALAX) 17 GM PACK PO SCH (08:29)
[2023-03-02 08:30] LABS: INR 2.6 (0.9-1.1); Prothrombin Time 27.1 Seconds (9.0-12.0)
[2023-03-02 08:34] LABS: BUN Creatinine Ratio 12.7 (10-20); Calcium 8.6 mg/dl (8.6-10.3); Creatinine Clr Calc Pharmacy 37.9 ml/min; Est GFR (African American) 80.8 ml/min; Est GFR (Non-African American) 69.7 ml/min
--- NOTE | 2023-03-02 09:52 | XRay Report ---
XR chest 1V portable CLINICAL HISTORY: f/u infiltrates,hypoxia COMPARISON STUDY: Chest radiograph and chest CT February 25, 2023. FINDINGS: No pneumothorax is present. There is a trace right pleural effusion. Linear left basilar op acity favors atelectasis. Mild right midlung opacity persists. There is pulmonary vascular congestion without overt pulmonary edema. Cardiomediastinal silhouette is stable. IMPRESSION: 1. Persistent mild right midlung opacity. This favors an infectious etiology. Continued radiographic follow-up to ensure resolution is recommended. 2. Pulmonary vascular congestion without overt pulmonary edema. 3. Trace right pleural effusion. ACT 112: Negative or not required by law. Electronically signed by: Joselito Montes M.D. 03/02/2023 9:51 AM
[2023-03-02] MEDS ORDERED: oxyCODONE HCL IR 5 MG TAB (IMMEDIATE RELEASE) PO STA (15:08)
[2023-03-02] MEDS ORDERED: WARFARIN SOD 4 MG TAB PO SCH (16:00)
--- NOTE | 2023-03-02 19:38 | Hospitalist Progress Note ---
Date of Service March 02, 2023 Assessment & Plan (1) Pulmonary emboli: Plan: Bilateral, segmental and subsegmental With a history of CTEPH and follows with pulmonology at [place] These new PEs occurred while on Xarelto which is concerning. She currently seems to be in the middle of a work-up to rule out malignancy and was recently off her Xarelto for 2 days to have a colonoscopy with polypectomy which proved to be benign. She also was off her Xarelto for 2 more days more recently for IR guided biopsy of a retroperitoneal LN noted on recent abdominal MRI but the biopsy was cancelled then last minute and has not yet been rescheduled. Dopplers of bilateral lower extremities negative for DVT on 02/25 and again neg of RLE on 03/01 (repeated for acute pain, found to have Fatima's cyst) She is very sedentary. BioFire negative for COVID and other viruses Her community living specialist was ordering antiphospholipid antibodies for her-we will need to follow-up to see if these were drawn Echocardiogram here with mild RV dilatation, mild to moderate AI, and RVSP greater than 60 mmHg -She considered to be a failure of Xarelto and was placed on a heparin drip and has been started on Coumadin therapy -INR jumped up very quickly to 4.3 after 2 doses of Coumadin and this was held -INR now 2.6 and will restart coumadin at lower dose of 4mg daily -Follow INR in the morning -Follow-up with her oil fire specialist in [place] after discharge as they are considering catheter directed therapy for her CTEPH -will need to have the RP LN biopsy at some point in the future to r/o malignancy-should have Oncology follow up; perhaps a PET scan would be a better test for her now to avoid having to hold her anticoagulation (2) Abnormal CT scan, chest: Plan: She has a consolidative density in the lateral right midlung, and groundglass and reticular opacities in the upper lungs She is coughing up some sputum, no hemoptysis She is afebrile and no leukocytosis, procalcitonin negative-did not suspect bacterial pneumonia, but rather possible post PE inflammation? However with persistent cough, pain, sputum production, abnormal CXR 03/02--> start ctx and doxy Follow-up with pulmonology after discharge oxycodone prn CP (3) Acute respiratory failure with hypoxia: Plan: Secondary to PEs now weaned off O2 intermittently check 2 step prior to discharge wears O2 at night for Pulm HTN (4) Chest pain: Plan: Inspiratory right-sided pleuritic type chest pain now much improved. No evidence of acute coronary syndrome. This is due to the acute PEs -Continue IV Dilaudid as needed and oxycodone as needed for oral option (5) Polymyalgia rheumatica: Plan: Stable. Sed rate is 22. She is prednisone dependent. Continue prednisone 2.5 Mg p.o. once daily Follows with Rheum Dr. 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 Continue pantoprazole (9) Hypothyroid: Plan: Stable. Continue levothyroxine TSH normal in 07/2022 Migraine headaches-continue Topamax and gabapentin for prophylaxis Plan DVT prophylaxis-Coumadin Disposition-continued stay until INR stabilizes, pain is controlled. PT/OT consults placed-no longer needs rehab, can go home with home health called and left for granddaughter on 03/01 Admission and Anticipated Discharge Date Admission Date: February 26, 2023 Subjective Still some pain in right chest with deep inspiration and pain in right posterior knee and feet with movement but better than previous with oxycodone use. Coughing up some yellow sputum Physical Exam Constitutional: WD/WN, vitals as above Neck: trachea midline, no thyromegaly Respiratory: normal respiratory effort; no cough Auscultation: + diminished lung sounds (At right lung base); no crackles, no rhonchi and no wheezes Cardiovascular: RRR, no murmur, no edema Chest (Breasts): Chest: normal inspection of chest Gastrointestinal (Abdomen): normal bowel sounds, soft, nontender, no hepatosplenomegaly Musculoskeletal: Extremities: extremities normal to inspection; no cyanosis and no clubbing Skin: no rashes, warm and dry Neurologic: moves all extremities and awake; no focal motor deficits Psychiatric: A+Ox3, euthymic affect Lymphatic: no lymphedema Results & Data Results & Data Vital Signs (Past 12 Hours) Vital Signs Temp Pulse Pulse Resp BP Pulse Ox O2 Del Method 10/09/23 17:14 Nasal Cannula 03/02/23 16:06 36.7 C 17 112/64 03/02/23 15:45 85 03/02/23 14:33 03/02/23 11:53 75 03/02/23 11:45 36.6 C 83 17 115/72 92 Nasal Cannula 03/02/23 08:36 95 Nasal Cannula 03/02/23 08:36 86 L Room Air 03/02/23 08:07 64 03/02/23 07:50 36.6 C 74 18 91/53 L 97 Nasal Cannula O2 Flow Rate 03/02/23 17:14 1 03/02/23 16:06 03/02/23 15:45 03/02/23 14:33 1 03/02/23 11:53 03/02/23 11:45 2 03/02/23 08:36 2 03/02/23 08:36 03/02/23 08:07 03/02/23 07:50 3 Laboratory Results CBC, BMP, INR reviewed PG Care Time/CCT Total # of Minutes Spent Total Time Spent with Patient: Total time spent is greater than 50% in coordination of care (as documented) at patient's floor/unit and/or counseling patient: Coding Level of Care Code 76892 SUB INP/OBS CARE 3/50MIN Diagnoses Pulmonary emboli I26.[address] scan, chest R93.89 Acute respiratory failure with hypoxia J96.01 Chest pain R07.9 Chest pain type: unspecified Polymyalgia rheumatica M35.3 Nocturnal hypoxemia G47.34 Pulmonary hypertension I27.20 GERD (gastroesophageal reflux disease) K21.9 Esophagitis presence: esophagitis presence not specified Hypothyroid E03.9 (4) Chest pain Chest pain type: unspecified Qualified Code(s): R07.9 - Chest pain, unspecified (8) GERD (gastroesophageal reflux disease) Esophagitis presence: esophagitis presence not specified Qualified Code(s): K21.9 - Gastro-esophageal reflux disease without esophagitis
[2023-03-02] MEDS ORDERED: cefTRIAXone SODIUM 1,000 MG in DEXTROSE 5% 50 ML IV SCH (20:00)
[2023-03-02 20:24] VITALS: RESP 18
[2023-03-02] MEDS: FLUTICASONE/VILANTEROL 100/25MCG 14 PUFFS/INHALER INH SCH (21:18)
[2023-03-02] MEDS: LATANOPROST 0.005% OP SOLN 2.5 ML BTL OP SCH (21:22)
[2023-03-02] MEDS: GABAPENTIN 300 MG CAP PO SCH (21:22)
[2023-03-02] MEDS: FAMOTIDINE 20 MG TAB PO SCH (21:24)
[2023-03-02] MEDS: traZODone HCL 100 MG TAB PO SCH (21:24)
[2023-03-02] MEDS: DOXYCYCLINE HYCLATE 100 MG in DEXTROSE 5% MINI-B 100 ML IV SCH (21:48)
[2023-03-02] MEDS ORDERED: FLUTICASONE PROPIONATE NA SPR 16 GM BTL PRN (22:59)
[2023-03-02] MEDS ORDERED: MELATONIN 3 MG TAB PO PRN (23:00)
[2023-03-02] MEDS: guaiFENesin 600 MG TABCR PO SCH (23:37)
[2023-03-03] MEDS: LEVOTHYROXINE SODIUM 75 MCG TABLET PO SCH (05:55)
[2023-03-03] MEDS: oxyCODONE HCL IR 5 MG TAB (IMMEDIATE RELEASE) PO PRN ×2 (06:01→17:02)
[2023-03-03] MEDS: POLYETHYLENE (MIRALAX) 17 GM PACK PO SCH (08:09)
[2023-03-03] MEDS: PANTOprazole 40 MG TAB PO SCH (08:10)
[2023-03-03] MEDS: TOPIRAMATE 50 MG TAB PO SCH (08:11)
[2023-03-03] MEDS: DULoxetine HCL 60 MG CAP PO SCH (08:11)
[2023-03-03] MEDS: MAGNESIUM OXIDE 400 MG TAB PO SCH (08:11)
[2023-03-03] MEDS: DOCUSATE SODIUM 100 MG CAP PO SCH (08:11)
[2023-03-03] MEDS: SUCRALFATE 1 GM TAB PO SCH (08:12)
[2023-03-03] MEDS: ARTIFICIAL TEARS OP SCH ×2 (08:12→13:15)
[2023-03-03] MEDS: guaiFENesin 600 MG TABCR PO SCH (08:12)
[2023-03-03] MEDS: predniSONE 2.5 MG TAB PO SCH (08:12)
[2023-03-03] MEDS: DORZOLAMIDE/TIMOLOL 22.3/6.8MG/ML 10 ML BTL OPB SCH (08:13)
[2023-03-03] MEDS ORDERED: predniSONE 20 MG TAB PO STA (08:22)
[2023-03-03 10:31] LABS: Basophils # (auto) 0.04 K/uL (0.00-0.20); Basophils % (auto) 0.6 %; Eosinophils # (auto) 0.16 K/uL (0.00-0.50); Eosinophils % (auto) 2.5 %; Hematocrit (blood only) 37.4 % (37.0-47.0); Hemoglobin 12.6 g/dl (12.0-16.0); Immature Granulocytes # (auto) 0.04 K/uL (0.01-0.20); Immature Granulocytes % (auto) 0.6 %; Lymphocytes # (auto) 1.21 K/uL (1.20-3.40); Lymphocytes % (auto) 19.1 %; Mean Corpuscular Hgb Conc 33.7 g/dL (32.0-36.0); Mean Corpuscular Volume 94.9 fL (80.0-100.0); Mean Platelet Volume 10.1 fL (9.4-12.4); Monocytes % (auto) 12.7 %; Neutrophils # (auto) 4.07 K/uL (1.40-6.50); Neutrophils % (auto) 64.5 %; Platelet Count 218 K/uL (130-400); RDW Coefficient of Variation 13.4 % (11.5-14.5); RDW Standard Deviation 47.1 fL (36.4-46.3); Red Blood Count 3.94 M/uL (4.20-5.40); White Blood Count 6.32 K/ul (4.8-10.8)
[2023-03-03 10:47] LABS: Calcium 8.6 mg/dl (8.6-10.3); Creatinine Clr Calc Pharmacy 36.1 ml/min; Est GFR (African American) 76.1 ml/min; Est GFR (Non-African American) 65.7 ml/min; Potassium 3.8 mmol/L (3.5-5.1)
[2023-03-03 10:58] LABS: INR 3.1 (0.9-1.1); Prothrombin Time 31.3 Seconds (9.0-12.0)
[2023-03-03] MEDS: DOXYCYCLINE HYCLATE 100 MG in DEXTROSE 5% MINI-B 100 ML IV SCH (11:05)
--- NOTE | 2023-03-03 15:32 | Discharge Summary ---
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 She remained stable in the ED. Labs were significant for an initial high sen trop of 20 with 2 hour repeat of 19.9. Chest xray was read as "1. There are mild patchy airspace opacities in the right midlung. Correlate clinically for evidence of an infectious/inflammatory pneumonitis. Radiographic follow-up to resolution is recommended. 2. Cardiomegaly without radiographic evidence of congestive failure.". CT angio of the chest with PE protocol was read as "1. A few tiny pulmonary emboli are seen in segmental/subsegmental branches of the bilateral lungs. No right heart strain is seen. 2. Groundglass and consolidative opacities are seen compatible with infectious/inflammatory process with reactive lymphadenopathy.". Prior to admission the patient was started on a heparin drip and given 2 mg IV morphine and 625 mg PO Tylenol. At the time of the exam the patient was lying in bed in no acute distress. She states that she had been in her normal state of health until this am when she was experiencing right chest pain. She states that the pain has been constant, sharp/stabbing, a 5/10 at baseline with exacerbations with inspiration or increased intrathoracic pressure making it a 10/10. She denies radiation of this pain and denies having this type of pain in the past. She wears oxygen at night but is unsure of how much she typically uses. When asked, she states that she has had a non-productive cough with clear drainage over the past 2-3 days. She states that she lives with her son and his family. Recently one of his children has had a cold and she thinks that she caught it. She denies missing any doses of Xarelto recently. She denies recent fever, chills, hemoptysis, nausea, vomiting, abd pain, dysuria, hematuria, melena, LE swelling/pain, and recent trauma. We discussed code status, she was clear that she would not want CPR or defibrillation in the event of cardiac arrest. In the event of respiratory failure she would want a trial of intubation. She would want her son to make medical decisions for her if she cannot make them herself. Please refer to Dr. Miranda's attestation for any changes to the treatment plan Principal Dx & Hospital Course #1 = Principal Diagnosis (1) Pulmonary emboli: Bilateral, segmental and subsegmental With a history of CTEPH and follows with pulmonology at [place] These new PEs occurred while on Xarelto which is concerning. She currently seems to be in the middle of a work-up to rule out malignancy and was recently off her Xarelto for 2 days to have a colonoscopy with polypectomy which proved to be benign. She also was off her Xarelto for 2 days in Dec 2022 for IR guided biopsy of a retroperitoneal LN noted on recent abdominal MRI but the biopsy was cancelled then last minute and has not yet been rescheduled. Dopplers of bilateral lower extremities negative for DVT on 02/25 and again neg of RLE on 03/01 (repeated for acute pain, found to have Fatima's cyst) She is very sedentary. BioFire negative for COVID and other viruses Her type soldering machine tender was ordering antiphospholipid antibodies for her-will need to follow-up to see if these were drawn Echocardiogram here with mild RV dilatation, mild to moderate AI, and RVSP greater than 60 mmHg -She considered to be a failure of Xarelto and was placed on a heparin drip and was started on Coumadin therapy -INR jumped up very quickly to 4.3 after 2 doses of Coumadin and this was held for 2 days -INR then 2.6 and restarted coumadin at lower dose of 4mg daily on 03/02 -INR up to 3.1 on 03/03---> recommend Coumadin 3mg daily on discharge and close f/u -Follow INR in 2 days with results to PCP who is aware -Follow-up with her operating systems specialist in [place] after discharge as they are considering catheter directed therapy for her CTEPH -will need to have the RP LN biopsy at some point in the future to r/o malignancy-should have Oncology follow up; perhaps a PET scan would be a better test for her now to avoid having to hold her anticoagulation. Nurse Navigator made this referral at time of discharge (2) Abnormal CT scan, chest: She has a consolidative density in the lateral right midlung, and groundglass and reticular opacities in the upper lungs She is coughing up some sputum, no hemoptysis She is afebrile and no leukocytosis, procalcitonin negative-did not suspect bacterial pneumonia initially, but rather possible post PE inflammation? However with persistent cough, pain, sputum production, abnormal CXR 03/02--> started ceftriaxone and doxy--> improvng--> dc to home with cefdinir and doxy x 6 more days Follow-up with pulmonology after discharge oxycodone prn CP check CXR in 4 weeks to ensure resolution of infiltrate (3) Acute respiratory failure with hypoxia: Secondary to PEs now weaned off O2 and 2 step shwed no need for supplemental O2 during daytime wears O2 at night for Pulm HTN (4) Chest pain: Inspiratory right-sided pleuritic type chest pain now much improved. No evidence of acute coronary syndrome. This is due to the acute PEs -Continue oxycodone as needed for pain at home (5) Polymyalgia rheumatica: Stable. Sed rate is 22. She is prednisone dependent. Continue prednisone 2.5 Mg p.o. once daily and gave one dose of 20mg as a stress dose for soft BPs during hospital stay Follows with Rheum Dr. 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 Continue pantoprazole (9) Hypothyroid: Stable. Continue levothyroxine TSH normal in 07/2022 Migraine headaches-continue Topamax and gabapentin for prophylaxis Plan DVT prophylaxis-Coumadin Disposition-dc home with home health called and left VM for granddaughter on 03/01 Discharge Exam Constitutional WD/WN, vitals as above Neck trachea midline, no thyromegaly Respiratory normal respiratory effort; no cough Auscultation: + diminished lung sounds (At right lung base); no crackles, no rhonchi and no wheezes Cardiovascular RRR, no murmur, no edema Chest (Breasts) Chest: normal inspection of chest Gastrointestinal (Abdomen) normal bowel sounds, soft, nontender, no hepatosplenomegaly Musculoskeletal Extremities: extremities normal to inspection; no cyanosis and no clubbing Skin no rashes, warm and dry Neurologic moves all extremities and awake; no focal motor deficits Psychiatric A+Ox3, euthymic affect Lymphatic no lymphedema Updated Medication List Medication Instructions Recorded Confirmed Type multivitamin 1 tab PO QAM 06/10/18 02/25/23 History tramadol 50 mg tablet 50 mg PO AMHS 02/13/19 02/25/23 History latanoprost 0.005 % eye drops 1 drops ophthalmic (eye) QPM 03/03/19 02/25/23 History dorzolamide 22.3 mg-timolol 6.8 1 drp OPB BID 10/07/20 02/25/23 History mg/mL eye drops zinc sulfate 25 mg zinc (110 mg) 25 mg PO QAM 12/11/20 02/25/23 History tablet (Orazinc) duloxetine 60 mg capsule,delayed 120 mg PO QAM 01/31/21 02/25/23 History release (Cymbalta) albuterol sulfate 90 mcg/actuation 2 puff inhalation Q6H PRN 03/11/21 02/25/23 Rx aerosol inhaler shortness of breath or wheezing #3 Inhalers artificial tears(hypromellose) 0.3 1 drp ophthalmic (eye) TID 09/18/21 02/25/23 History % eye gel (Systane Gel) furosemide 20 mg tablet 20 mg PO QAM 09/18/21 02/25/23 History peg 400-propylene glycol 0.4 %-0.3 1 drp ophthalmic (eye) TID 09/18/21 02/25/23 History % eye drops (Systane Ultra) docusate sodium 100 mg capsule 100 mg PO QAM 09/23/21 02/25/23 History magnesium 250 mg tablet 250 mg PO QAM 09/23/21 02/25/23 History cholecalciferol (vitamin D3) 25 100 mcg PO QAM 11/10/21 02/25/23 History mcg (1,000 unit) tablet (Vitamin D3) trazodone 100 mg tablet 100 mg PO QPM #30 tabs 02/24/22 02/25/23 Rx gabapentin 300 mg capsule 300 mg PO HS 90 days #90 caps 12/04/22 02/25/23 Rx levothyroxine 75 mcg tablet 75 mcg PO DAILYBB #90 tabs 01/12/23 02/25/23 Rx famotidine 20 mg tablet 20 mg PO HS 01/20/23 02/25/23 History fexofenadine 180 mg tablet 180 mg PO QAM 01/20/23 02/25/23 History pantoprazole 40 mg tablet,delayed 40 mg PO BID 01/20/23 02/25/23 History release prednisone 2.5 mg tablet 2.5 mg PO QAM 01/20/23 02/25/23 History topiramate 50 mg tablet 50 mg PO BID 01/20/23 02/25/23 History metronidazole 0.75 % topical cream 1 applic topical BID PRN face 01/21/23 02/25/23 Rx cream #45 grams rivaroxaban 20 mg tablet (Xarelto) 20 mg PO HS 90 days #90 tabs 01/21/23 02/25/23 Rx fluticasone furoate 100 1 inh inhalation QPM #60 ea 02/02/23 02/25/23 Rx mcg-vilanterol 25 mcg/dose inhalation powder (Breo Ellipta) sucralfate 1 gram tablet 1 g PO QAM #90 tabs 02/02/23 02/25/23 Rx cefdinir 300 mg capsule 300 mg PO BID #12 caps 03/03/23 Rx doxycycline hyclate 100 mg tablet 100 mg PO BID #12 tabs 03/03/23 Rx oxycodone 5 mg tablet 5 mg PO Q4H PRN moderate-severe 03/03/23 Rx pain #10 tabs warfarin 3 mg tablet 3 mg PO DAILY@1600 #30 tabs 03/03/23 Rx Hospital Stay Data Consultations 02/25/23 16:50 ED Decision to Admit Stat Diagnostic Imagining Performed 02/25/23 14:02 CT angio chest PE protocol Stat 02/25/23 18:02 US venous doppler LE BI Urgent 03/01/23 16:20 US venous doppler LE RT Routine ECHO Pending Results Patient Have Any Pending Studies at Discharge: No Discharge Instructions Given to Patient (Per Discharging Provider) You were admitted with blood clots in your lungs despite being on Xarelto. You were switched to Coumadin instead as your new blood thinner. You will need to have your PT/INR blood test checked in 2 days to see how thin/thick your blood is and then Dr. Alexis's office can let you know how to adjust your Coumadin dose if need be. You will need to finish out 6 more days of the two antibiotics for your pneumonia. You should have a repeat chest xray in 4 weeks to ensure the pneumoni a has cleared out. You will be referred to a Credit Review Analyst/Oncologist because of your recurrent blood clots and enlarged lymph nodes in the abdomen. They may recommend you have a PET scan of your body to look for cancer as it would be difficult for you to have a biopsy of the enlarged lymph node now that you have blood clots and are on Coumadin. Total Time Total Time Spent Total Time Spent (In Minutes): 40 min Coding Level of Care Code 29149 INP/OBS DISCH >30 MIN Diagnoses Pulmonary emboli I26.[address] scan, chest R93.89 Acute respiratory failure with hypoxia J96.01 Chest pain R07.9 Chest pain type: unspecified Polymyalgia rheumatica M35.3 Nocturnal hypoxemia G47.34 Pulmonary hypertension I27.20 GERD (gastroesophageal reflux disease) K21.9 Esophagitis presence: esophagitis presence not specified Hypothyroid E03.9
[2023-03-03 15:36] VITALS: TEMP 98.1; O2SAT 92
--- NOTE | 2023-03-03 15:42 | Pharmacy Report ---
ED Pharmacist Progress Note - ED Pharmacist Progress Note Date of Service:: March 03, 2023 Notes:: Received call from [facility] re: prescription for oxycodone. Provided indication. Also patient on tramadol. It appears this was continued on discharge in the discharge plan but discharge not complete to see if any instructions to hold while on oxycodone. [facility] pharmacist states they will relationship counselor.
[2023-03-03] MEDS ORDERED: WARFARIN SOD 3 MG TAB PO SCH (16:00)
[2023-03-03 16:50] VITALS: BP 112/64; PULSE 69
[2023-03-03] MEDS ORDERED: cefTRIAXone SODIUM 1,000 MG in DEXTROSE 5 % MINI-B 50 ML IV SCH (20:00)
== END 2023-03-03 19:29 | disposition home health service (06) | DRG 175 ==
LOC: EDINP 13:42 → ED 13:42 → SUATTDRO 17:26 → 2N 20:29 → SUATTDRO 02-26 08:28 → 2N 02-26 09:03

== ENCOUNTER 2024-11-14 17:01 | Inpatient (IN) ==
[2024-11-14 17:44] LABS: Basophils # (auto) 0.03 K/uL (0.00-0.20); Basophils % (auto) 0.8 %; Eosinophils # (auto) 0.02 K/uL (0.00-0.50); Eosinophils % (auto) 0.6 %; Hematocrit (blood only) 47.4 % (37.0-47.0); Immature Granulocytes # (auto) 0.02 K/uL (0.01-0.20); Immature Granulocytes % (auto) 0.6 %; Lymphocytes # (auto) 0.68 K/uL (1.20-3.40); Mean Corpuscular Hemoglobin 31.3 pg (25.0-34.0); Mean Corpuscular Hgb Conc 33.8 g/dL (32.0-36.0); Mean Corpuscular Volume 92.6 fL (80.0-100.0); Mean Platelet Volume 10.5 fL (9.4-12.4); Monocytes % (auto) 8.4 %; Neutrophils # (auto) 2.52 K/uL (1.40-6.50); Neutrophils % (auto) 70.6 %; Platelet Count 164 K/uL (130-400); RDW Standard Deviation 51.2 fL (36.4-46.3); Red Blood Count 5.12 M/uL (4.20-5.40); White Blood Count 3.57 K/ul (4.8-10.8)
[2024-11-14 17:56] LABS: Albumin Level 4.1 gm/dl (3.4-5.0); Anion Gap 8 (3-11); Bilirubin,Total 0.9 mg/dl (0.2-1.0); Calcium 8.8 mg/dl (8.6-10.3); Carbon Dioxide 25 mmol/L (21-32); Chloride 95 mmol/L (98-107); Potassium 4.1 mmol/L (3.5-5.1); Sodium 128 mmol/L (136-145)
[2024-11-14 18:02] LABS: Alanine Aminotransferase 22 U/L (7-52); Albumin Globulin Ratio 1.5 (0.9-2); Alkaline Phosphatase 60 U/L (34-104); Aspartate Aminotransferase 53 U/L (13-39); BUN Creatinine Ratio 18.2 (10-20); Blood Urea Nitrogen 18 mg/dl (6-23); Globulin 2.7 gm/dl (2.5-4.0); Glucose 111 mg/dl (70-99(Fasting)); Total Protein 6.8 gm/dl (6.0-8.3)
[2024-11-14 19:03] LABS: Appearance Urine Turbid (Clear); Bacteria Urine Automated 4+ (None Seen); Bilirubin Urine Negative (Negative); Blood Urine 2+ (Negative); Cast Urine Automated 0-2 /lpf (0-2); Color Urine Yellow; Epithelial Cell Urine Auto 0-2 /hpf (0-2); Glucose Urine UA Negative (Negative); Ketones Urine Negative (Negative); Leukocyte Esterase Urine 3+ (Negative); Nitrite Urine Positive (Negative); Protein Urine 1+ (Negative); Urobilinogen Urine Negative (Negative); WBC Urine Automated >50 /hpf (0-5); pH Urine 5.5 (4.5-7.5)
[2024-11-14 19:06] LABS: INR 1.5 (0.9-1.1); Prothrombin Time 15.5 Seconds (9.0-12.0)
--- NOTE | 2024-11-14 19:27 | Emergency Department Note ---
Impression & Plan UTI (urinary tract infection), Acute confusion ED Provider Note NAME: LENA PAIZ AGE: 84 SEX: F : 1940 ARRIVES VIA: Walk-In INFORMANT: Patient, ED PROVIDER(S): Arthur Kidd MD CHIEF COMPLAINT: Suprapubic pain, dysuria HPI: This is a 84-year-old female presenting for dysuria, confusion. Patient is with her granddaughter, who she lives with, who states that patient has had confusion and forgetfulness with the past few days. Patient self reports feeling suprapubic fullness/pressure as well as dysuria and frequency. She reports a urinalysis a few days ago which was clean by her PCP. She otherwise reports no chest pain, shortness of breath. She reports chronic diarrhea from her IBS. ROS: See above HPI for pertinent positives & negatives. A total of 10 systems reviewed and were otherwise negative. PAST MEDICAL HISTORY: See Below PAST SURGICAL HISTORY: See Below FAMILY HISTORY: See Below SOCIAL HISTORY: See Below HOME MEDICATIONS: See Below ALLERGIES: See Below VITALS: See Below PHYSICAL EXAMINATION: General: resting comfortably in no acute distress Head: Normocephalic and atraumatic Eyes: Normal inspection, extraocular muscles intact Ear, nose, throat: Normal external exam Neck: Normal range of motion Respiratory: lungs clear to auscultation bilaterally Cardiovascular: Regular rate/rhythm, no murmur GI: soft, nontender, no guarding or rebound Extremities: nontender, moves all extremities Neuro: The patient awake and alert, appropriately conversive, no focal deficits, symmetric faces Skin: Warm, dry, and intact MEDICAL DECISION MAKING: This is an 84-year-old female seen for dysuria/confusion. Patient was already on antibiotics as per granddaughter but had a negative urinalysis. Patient has continued symptoms, is increasing confused over the last few days, very fatigued as per granddaughter. Otherwise no nausea, vomiting, constipation, chest pain or shortness of breath. - Patient blood work reveals leukopenia, INR 1.5, sodium 128. - The urinalysis does reveal signs of UTI, will give ceftriaxone 2 g here - Due to confusion, versus UTI, will admit to the hospital service Differential diagnosis: UTI, cystitis, delirium, dementia Independent History obtained from: Granddaughter Diagnostics interpreted by me: ECG: None Cardiac Monitoring: An order was placed for continuous cardiac monitoring. The monitor shows a rate of 82 with sinus rhythm. 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) Urethral stricture (Chronic) 3-vessel coronary artery disease Endometriosis Allergic rhinitis Cervicogenic headache Adult situational stress disorder Cerebrovascular disease Chronic fatigue syndrome with fibromyalgia AYE (obstructive sleep apnea) Traumatic open wound of left lower leg with delayed healing (Acute) Bile duct obstruction Anemia Choledocholithiasis Anxiety and depression Polymyalgia rheumatica Chronic venous insufficiency (Chronic) Balance disorder Neck pain Rosacea History of diverticulosis Nocturnal hypoxemia Medical marijuana use History of GI bleed History of pulmonary embolus (PE) 01/2022--on xarelto--following with Dr. 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 History of COVID-19 01/2022--hospitalized @ [facility]--no symptoms now IBS (irritable bowel syndrome) Pulmonary hypertension Severe per 07/2021 ECHO- PASP 79mmHg--[place] [facility] [place]romyalgia (Chronic) GERD (gastroesophageal reflux disease) (Chronic) Hypothyroid Asthma (Chronic) SOB with exertion--uses breo inhaler daily and rescue inhaler prn Chronic insomnia (Chronic) Medical History On home oxygen therapy Sleep apnea Chronic venous insufficiency Pulmonary nodule History of migraine History of gastric ulcer Aortic valve insufficiency Polymyalgia rheumatica Glaucoma Osteoporosis Anxiety 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 Surgical History History of colonoscopy S/P ERCP H/O tubal ligation S/P cataract surgery History of esophagogastroduodenoscopy (EGD) (~2011) History of orthopedic surgery H/O sinus surgery History of lumbar laminectomy History of hysterectomy History of cholecystectomy Family History Mother Diabetes Ovarian cancer Hypertension Kidney disease Father Diabetes Cardiac disorder Hypertension Stroke Alcohol abuse Other specified hearing loss, bilateral Aunt Breast cancer Brother Cancer Alcohol abuse Daughter Alcohol abuse Anxiety Dementia Family/Other Depression Anxiety Other No significant family history Denies family history of Colorectal cancer Social History Smoking Status: Never smoker Second Hand Exposure: Yes ( smoked around patient); Do You Dip or Chew Tobacco: No; Hx Alcohol Use: No Hx Substance Use: No Preferred Language: Greenlandic Communication Ability: Effective Visual Impairment: Limited Hearing Ability: Hard of Hearing Field Court Researcher Required: No Beliefs That Will Affect Care: None marital status: / Current Living Situation: Family Current Living Situation Comment: GRAND DAUGHTER AND great grandkids live above her in same home current occupational status: retired How many Children do You have: 1 Feels Safe at Home: Yes Childhood Exposure to Second-Hand Smoke: No Diet: regular caffeine: No during the past year weight has: decreased > 10 lbs Dental Care, Regularly: Yes Physical Activity Frequency: 1-2 Times per Week Seatbelt Use: always Sunscreen Use: Yes Assistive Devices: Cane and Glasses Allergies Allergies Allergy/AdvReac Type Severity Reaction Status Date / Time aspirin Allergy Intermediate GI UPSET Verified 11/02/24 16:45 codeine Allergy Intermediate GI UPSET Verified 11/02/24 16:45 erythromycin base Allergy Intermediate GI UPSET Verified 11/02/24 16:45 Home Meds Home Medications Medication Instructions Recorded Confirmed multivitamin 1 tab PO QAM 06/10/18 11/14/24 latanoprost 0.005 % eye drops 1 drops OPB QPM 03/03/19 11/14/24 dorzolamide 22.3 mg-timolol 6.8 1 drp OPB BID 10/07/20 11/14/24 mg/mL eye drops zinc sulfate 25 mg zinc (110 mg) 25 mg PO QAM 12/11/20 11/14/24 tablet (Orazinc) duloxetine 60 mg capsule,delayed 120 mg PO QAM 01/31/21 11/14/24 release (Cymbalta) furosemide 20 mg tablet 20 mg PO QAM 09/18/21 11/14/24 magnesium 250 mg tablet 250 mg PO QAM 09/23/21 11/14/24 cholecalciferol (vitamin D3) 25 100 mcg PO QAM 11/10/21 11/14/24 mcg (1,000 unit) tablet (Vitamin D3) fexofenadine 180 mg tablet 180 mg PO QAM 01/20/23 11/14/24 artificial tears(hypromellose) 0.3 1 drp OPR BID 03/05/23 11/14/24 % eye gel (Systane Gel) docusate sodium 100 mg capsule 100 mg PO QAM PRN Constipation 03/05/23 11/14/24 peg 400-propylene glycol 0.4 %-0.3 1 drp OPL BID 03/05/23 11/14/24 % eye drops (Systane Ultra) trazodone 100 mg tablet 50 mg PO QPM 03/05/23 11/14/24 acetaminophen 500 mg tablet 500 mg PO DAILY PRN Pain 06/22/24 11/14/24 famotidine 20 mg tablet 20 mg PO HS 11/14/24 11/14/24 gabapentin 300 mg capsule 300 mg PO BID 11/14/24 11/14/24 montelukast 10 mg tablet 10 mg PO HS 11/14/24 11/14/24 pantoprazole 40 mg tablet,delayed 40 mg PO BID 11/14/24 11/14/24 release prednisone 5 mg tablet 5 mg PO DAILY 11/14/24 11/14/24 topiramate 50 mg tablet 50 mg PO HS 11/14/24 11/14/24 Previous Rx's Medication Instructions Recorded tramadol 50 mg tablet 50 mg PO AMHS PRN pain #60 tabs 11/20/23 Breo Ellipta 100 mcg-25 mcg/dose 1 inh inhalation QPM #60 ea 12/28/23 powder for inhalation (fluticasone furoate-vilanterol) levothyroxine 75 mcg tablet 75 mcg PO DAILYBB #90 tabs 12/28/23 albuterol sulfate 90 mcg/actuation 2 puff inhalation Q4H PRN 05/17/24 aerosol inhaler shortness of breath or wheezing #1 inhaler warfarin 2 mg tablet See Rx Instructions PO UD #85 tabs 10/28/24 Results & Data (ED) Vital Signs Vital Signs - 24 hr 11/14/24 17:05 11/14/24 18:02 11/14/24 18:35 Temperature 36.6 C Temperature Source Temporal Artery Scan Pulse Rate 81 80 Pulse Rate [Apical] 82 Pulse Rhythm Regular Pulse Strength Normal Respiratory Rate 20 20 Respiratory Effort / Characteristics Non-Labored Spontaneous Non-Labored Spontaneous Respiratory Depth Normal Normal Respiratory Pattern Regular Blood Pressure 126/73 Blood Pressure [Right Arm] 94/57 L Blood Pressure Mean 90 Blood Pressure Mean [Right Arm] 69 Blood Pressure Position Sitting Blood Pressure Position [Right Arm] Semi-fowlers Pulse Oximetry 100 91 Oxygen Delivery Method Room Air Room Air Sepsis Recent Fever Within 48 Hours No Sepsis New/Unexplained Change in Mental Status N/A Sepsis Action Taken by Nursing No Action Required 11/14/24 20:00 Temperature Temperature Source Pulse Rate Pulse Rate [Apical] 83 Pulse Rhythm Pulse Strength Respiratory Rate 18 Respiratory Effort / Characteristics Non-Labored Spontaneous Respiratory Depth Normal Respiratory Pattern Regular Blood Pressure Blood Pressure [Right Arm] 105/63 Blood Pressure Mean Blood Pressure Mean [Right Arm] 77 Blood Pressure Position Blood Pressure Position [Right Arm] Semi-fowlers Pulse Oximetry 91 Oxygen Delivery Method Room Air Sepsis Recent Fever Within 48 Hours Sepsis New/Unexplained Change in Mental Status Sepsis Action Taken by Nursing Laboratory Data 11/14/24 17:30 11/14/24 17:30 Lab Results 11/14/24 11/14/24 Range/Units 17:30 18:47 WBC 3.57 L (4.8-10.8) K/ul RBC 5.12 (4.20-5.40) M/uL Hgb 16.0 (12.0-16.0) g/dl Hct 47.4 H (37.0-47.0) % MCV 92.6 (80.0-100.0) fL MCH 31.3 (25.0-34.0) pg MCHC 33.8 (32.0-36.0) g/dL RDW Std Deviation 51.2 H (36.4-46.3) fL RDW Coeff of Sudha 15.0 H (11.5-14.5) % Plt Count 164 (130-400) K/uL MPV 10.5 (9.4-12.4) fL Immature Gran % (Auto) 0.6 % Neut % (Auto) 70.6 % Lymph % (Auto) 19.0 % [place] % (Auto) 8.4 % Eos % (Auto) 0.6 % Baso % (Auto) 0.8 % Neut # (Auto) 2.52 (1.40-6.50) K/uL Lymph # (Auto) 0.68 L (1.20-3.40) K/uL [place] # (Auto) 0.30 (0.11-0.59) K/uL Eos # (Auto) 0.02 (0.00-0.50) K/uL Baso # (Auto) 0.03 (0.00-0.20) K/uL Immature Gran # (Auto) 0.02 (0.01-0.20) K/uL PT 15.5 H (9.0-12.0) Seconds INR 1.5 H (0.9-1.1) Sodium 128 L (136-145) mmol/L Potassium 4.1 (3.5-5.1) mmol/L Chloride 95 L (98-107) mmol/L Carbon Dioxide 25 (21-32) mmol/L Anion Gap 8 (3-11) BUN 18 (6-23) mg/dl Creatinine 0.99 (0.6-1.2) mg/dl Est Cr Clr Drug Dosing Not Reportable eGFR 56.23 BUN/Creatinine Ratio 18.2 (10-20) Glucose 111 H (70-99(Fasting)) mg/dl Calcium 8.8 (8.6-10.3) mg/dl Total Bilirubin 0.9 (0.2-1.0) mg/dl AST 53 H (13-39) U/L ALT 22 (7-52) U/L Alkaline Phosphatase 60 (34-104) U/L Total Protein 6.8 (6.0-8.3) gm/dl Albumin 4.1 (3.4-5.0) gm/dl Globulin 2.7 (2.5-4.0) gm/dl Albumin/Globulin Ratio 1.5 (0.9-2) Urine Color Yellow Urine Appearance Turbid A (Clear) Urine pH 5.5 (4.5-7.5) Ur Specific [place] 1.010 (1.000-1.030) Urine Protein 1+ H (Negative) Urine Glucose (UA) Negative (Negative) Urine Ketones Negative (Negative) Urine Blood 2+ H (Negative) Urine Nitrite Positive A (Negative) Urine Bilirubin Negative (Negative) Urine Urobilinogen Negative (Negative) Ur Leukocyte Esterase 3+ H (Negative) Urine WBC (Auto) >50 H (0-5) /hpf Urine RBC (Auto) 3-5 H (0-2) /hpf U Hyaline Cast (Auto) 0-2 (0-2) /lpf U Epithel Cells (Auto) 0-2 (0-2) /hpf Urine Bacteria (Auto) 4+ H (None Seen) Urine Comment Administered Medications Discontinued Medications Ceftriaxone Sodium (Rocephin) 2,000 mg in 50 mls @ 100 mls/hr IV NOW STA Stop: 11/14/24 19:48 Last Infusion: 11/14/24 20:14 Dose: Infused Documented By: Admin: 11/14/24 19:33 Dose: 100 mls/hr Documented By: NIMESH Discharge Plan Visit Data Chief Complaint: Urinary Symptoms Stated Complaint: UTI,CONFUSION ED Provider: Arthur Kidd Discharge Problem: UTI (urinary tract infection), Acute confusion Patient Disposition: Admitted As Inpatient Condition: Fair Forms Stand Alone Forms: My [facility] [employer] Prescriptions Prescriptions: No Action Orazinc 25 mg zinc (110 mg) tablet 25 mg PO QAM acetaminophen 500 mg tablet 500 mg PO DAILY PRN (Reason: Pain) fluticasone furoate-vilanterol [Breo Ellipta] 100-25 mcg/dose blister with device 1 inh inhalation QPM Qty: 60 3RF levothyroxine 75 mcg tablet 75 mcg PO DAILYBB Qty: 90 3RF Rx Instructions: TAKE 1 TABLET BY MOUTH DAILY warfarin 2 mg tablet See Rx Instructions PO UD Qty: 85 1RF Rx Instructions: 1mg q Thursday, 2mg x 6 days per [facility] orally use as directed latanoprost 0.005 % drops 1 drops OPB QPM trazodone 100 mg tablet 50 mg PO QPM Rx Instructions: Patient only taking 50mg at bedtime (03/05/2023) furosemide 20 mg tablet 20 mg PO QAM Systane Gel 0.3 % gel 1 drp OPR BID Rx Instructions: Uses in Right eye Systane Ultra 0.4-0.3 % drops 1 drp OPL BID Rx Instructions: uses in left eye albuterol sulfate 90 mcg/actuation HFA aerosol inhaler 2 puff INH Q4H PRN (Reason: shortness of breath or wheezing) Qty: 1 11RF tramadol 50 mg tablet 50 mg PO AMHS PRN (Reason: pain) Qty: 60 0RF multivitamin Tablet 1 tab PO QAM duloxetine [Cymbalta] 60 mg capsule,delayed release(DR/EC) 120 mg PO QAM dorzolamide-timolol 22.3-6.8 mg/mL drops 1 drp OPB BID cholecalciferol (vitamin D3) [Vitamin D3] 25 mcg (1,000 unit) Tablet 100 mcg PO QAM fexofenadine 180 mg Tablet 180 mg PO QAM magnesium 250 mg Tablet 250 mg PO QAM docusate sodium 100 mg capsule 100 mg PO QAM PRN (Reason: Constipation) famotidine 20 mg tablet 20 mg PO HS gabapentin 300 mg capsule 300 mg PO BID montelukast 10 mg tablet 10 mg PO HS topiramate 50 mg tablet 50 mg PO HS pantoprazole 40 mg tablet,delayed release (DR/EC) 40 mg PO BID prednisone 5 mg tablet 5 mg PO DAILY Referrals Referrals: Gege Alexis MD [Primary Care Provider] - Discharge Problem: UTI (urinary tract infection) Qualifiers: Urinary tract infection type: acute cystitis Hematuria presence: without hematuria Qualified Code(s): N30.00 - Acute cystitis without hematuria
[2024-11-14] MEDS: cefTRIAXone SODIUM 2,000 MG/50 ML BAG IV STA (19:33)
--- NOTE | 2024-11-14 20:33 | History & Physical Report ---
Date of Service November 14, 2024 Assessment & Plan (1) UTI (urinary tract infection): (2) Hyponatremia: (3) Subtherapeutic international normalized ratio (INR): (4) Recurrent pulmonary emboli: (5) Anticoagulated on Coumadin: (6) Glaucoma: (7) Current chronic use of systemic steroids: (8) Migraine: (9) 3-vessel coronary artery disease: (10) Cerebrovascular disease: (11) AYE (obstructive sleep apnea): (12) Chronic fatigue syndrome with fibromyalgia: (13) Anxiety and depression: (14) Polymyalgia rheumatica: (15) Chronic venous insufficiency: (16) IBS (irritable bowel syndrome): (17) GERD (gastroesophageal reflux disease): (18) Hypothyroid: (19) Asthma: (20) Sleep apnea: (21) Acute metabolic encephalopathy: Plan 84 year old female with PMH that includes Raynauds, h/o bilateral PEs on Coumadin, glaucoma, PMR, migraines, fibromyalgia, CAD, AYE with pulmonary HTN, anxiety/depression, chronic venous insufficiency, IBS, GERD, hypothyroidism presenting with urinary sx x2 weeks: #Recurrent UTI: UA consistent with UTI Urine culture pending Continue Ceftriaxone IV 2g/day, tailor abx based on C&S Will obtain KUB to evaluate stool burden, pending Consider starting methenamine vs urology/engineering teacher evaluation in outpatient setting d/t recurrent nature of UTIs #Hyponatremia: Na 128 on admission Urine sodium, urine osm, serum osm pending Hold Lasix at least until above urine studies obtained Overall examines as slightly volume contracted, start IV NSS 80ml/hr x1L Repeat AM BMP #Recurrent PEs on chronic anticoagulation with Warfarin: #Subtherapeutic INR: INR subtherapeutic at 1.5 Continue Warfarin 1mg Wed, 2mg/d all other days of the week Bridge with Lovenox until INR 2-3 Repeat AM INR #PMR, on chronic steroids: #Relative adrenal insufficiency: Continue prednisone 5mg/day Stress dose with prednisone 20mg x1, follow with taper #AYE: Patient with h/o BiPAP intolerance, though she is amenable to trial of HS BiPAP - previous settings 14/5 on 2L O2 If unable to tolerate, recommend HS supplemental O2 #Fibromyalgia: Continue Cymbalta and Tramadol #Migraine: Continue Topamax and gabapentin #Glaucoma: Continue Dorzolamide-Timolol eyedrops #Asthma: Continue Breo Ellipta maintenance inhaler, albuterol rescue inhaler PRN #Hypothyroidism: Continue Levothyroxine #GERD: Continue Protonix and Pepcid Dispo: Admit med-tele FEN/GI: HH diet, NSS @80mL/h x1L VTE ppx: Coumadin, Lovenox bridge Full Code - recommend discussing code status when family present, unsure whether patient truly able to make informed decision independently History of Present Illness Primary Care Provider: Gege Alexis MD 84 year old female with PMH that includes Raynauds, h/o bilateral PEs on Coumadin, glaucoma, PMR, migraines, fibromyalgia, CAD, AYE with pulmonary HTN, anxiety/depression, chronic venous insufficiency, IBS, GERD, hypothyroidism presenting with urinary sx x2 weeks. Patient reports increased urinary frequency and dysuria x2 weeks. Patient was treated with 7 days of Keflex starting on 11/02. Urine culture at that time grew pena-sensitive e. coli. Patient reports that sx initially seemed to improve, but recurred over past several days. Repeat urine culture following completion of Keflex negative on 11/10. Patient also reports chills, weakness. Denies abdominal pain, N/V. Denies flank pain. Patient has IBS-D. Patient has h/o pelvic organ prolapse, previously had a pessary fitted but stopped using because it would pop out when straining to have a bowel movement. ED Course: UA consistent with UTI, urine culture pending. S/P Ceftriaxone 2g x1 Allergies Allergy/AdvReac Type Severity Reaction Status Date / Time aspirin Allergy Intermediate GI UPSET Verified 11/02/24 16:45 codeine Allergy Intermediate GI UPSET Verified 11/02/24 16:45 erythromycin base Allergy Intermediate GI UPSET Verified 11/02/24 16:45 Home Medications Medication Instructions Recorded Confirmed Type multivitamin 1 tab PO QAM 06/10/18 11/14/24 History latanoprost 0.005 % eye drops 1 drops OPB QPM 03/03/19 11/14/24 History dorzolamide 22.3 mg-timolol 6.8 1 drp OPB BID 10/07/20 11/14/24 History mg/mL eye drops zinc sulfate 25 mg zinc (110 mg) 25 mg PO QAM 12/11/20 11/14/24 History tablet (Orazinc) duloxetine 60 mg capsule,delayed 120 mg PO QAM 01/31/21 11/14/24 History release (Cymbalta) furosemide 20 mg tablet 20 mg PO QAM 09/18/21 11/14/24 History magnesium 250 mg tablet 250 mg PO QAM 09/23/21 11/14/24 History cholecalciferol (vitamin D3) 25 100 mcg PO QAM 11/10/21 11/14/24 History mcg (1,000 unit) tablet (Vitamin D3) fexofenadine 180 mg tablet 180 mg PO QAM 01/20/23 11/14/24 History artificial tears(hypromellose) 0.3 1 drp OPR BID 03/05/23 11/14/24 History % eye gel (Systane Gel) docusate sodium 100 mg capsule 100 mg PO QAM PRN Constipation 03/05/23 11/14/24 History peg 400-propylene glycol 0.4 %-0.3 1 drp OPL BID 03/05/23 11/14/24 History % eye drops (Systane Ultra) trazodone 100 mg tablet 50 mg PO QPM 03/05/23 11/14/24 History tramadol 50 mg tablet 50 mg PO AMHS PRN pain #60 tabs 11/20/23 11/14/24 Rx Breo Ellipta 100 mcg-25 mcg/dose 1 inh inhalation QPM #60 ea 12/28/23 11/14/24 Rx powder for inhalation (fluticasone furoate-vilanterol) levothyroxine 75 mcg tablet 75 mcg PO DAILYBB #90 tabs 12/28/23 11/14/24 Rx albuterol sulfate 90 mcg/actuation 2 puff inhalation Q4H PRN 05/17/24 11/14/24 Rx aerosol inhaler shortness of breath or wheezing #1 inhaler acetaminophen 500 mg tablet 500 mg PO DAILY PRN Pain 06/22/24 11/14/24 History warfarin 2 mg tablet See Rx Instructions PO UD #85 tabs 10/28/24 11/14/24 Rx famotidine 20 mg tablet 20 mg PO HS 11/14/24 11/14/24 History gabapentin 300 mg capsule 300 mg PO BID 11/14/24 11/14/24 History montelukast 10 mg tablet 10 mg PO HS 11/14/24 11/14/24 History pantoprazole 40 mg tablet,delayed 40 mg PO BID 11/14/24 11/14/24 History release prednisone 5 mg tablet 5 mg PO DAILY 11/14/24 11/14/24 History topiramate 50 mg tablet 50 mg PO HS 11/14/24 11/14/24 History Past Med/Surg History Problem List (Updated 11/15/24 @ 23:32 by Jesse Davila MD) Acute metabolic encephalopathy Subtherapeutic international normalized ratio (INR) Hyponatremia UTI (urinary tract infection) Chronic sinusitis, unspecified Globus sensation Nasal vestibulitis Bilateral otitis externa Excessive daytime sleepiness Recurrent pulmonary emboli Raynauds disease Anticoagulant long-term use Anticoagulated on Coumadin Bilateral pulmonary embolism (Acute) Arthritis Glaucoma (Chronic) Current chronic use of systemic steroids (Chronic) Hearing difficulty (Chronic) IFG (impaired fasting glucose) (Chronic) Incomplete bladder emptying (Chronic) Migraine (Chronic) Moderate aortic insufficiency (Chronic) Osteoporosis, 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) Urethral stricture (Chronic) 3-vessel coronary artery disease Endometriosis Allergic rhinitis Cervicogenic headache Adult situational stress disorder Cerebrovascular disease Chronic fatigue syndrome with fibromyalgia AYE (obstructive sleep apnea) Traumatic open wound of left lower leg with delayed healing (Acute) Bile duct obstruction Anemia Choledocholithiasis Anxiety and depression Polymyalgia rheumatica Chronic venous insufficiency (Chronic) Balance disorder Neck pain Rosacea History of diverticulosis Nocturnal hypoxemia Medical marijuana use History of GI bleed History of pulmonary embolus (PE) 01/2022--on xarelto--following with Dr. 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 History of COVID-19 01/2022--hospitalized @ [facility]--no symptoms now IBS (irritable bowel syndrome) Pulmonary hypertension Severe per 07/2021 ECHO- PASP 79mmHg--following with [facility] Fibromyalgia (Chronic) GERD (gastroesophageal reflux disease) (Chronic) Hypothyroid Asthma (Chronic) SOB with exertion--uses breo inhaler daily and rescue inhaler prn Chronic insomnia (Chronic) Medical History On home oxygen therapy Sleep apnea Chronic venous insufficiency Pulmonary nodule History of migraine History of gastric ulcer Aortic valve insufficiency Polymyalgia rheumatica Glaucoma Osteoporosis Anxiety 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 Surgical History History of colonoscopy S/P ERCP H/O tubal ligation S/P cataract surgery History of esophagogastroduodenoscopy (EGD) (~2011) History of orthopedic surgery H/O sinus surgery History of lumbar laminectomy History of hysterectomy History of cholecystectomy Family History Mother Diabetes Ovarian cancer Hypertension Kidney disease Father Diabetes Cardiac disorder Hypertension Stroke Alcohol abuse Other specified hearing loss, bilateral Aunt Breast cancer Brother Cancer Alcohol abuse Daughter Alcohol abuse Anxiety Dementia Family/Other Depression Anxiety Other No significant family history Denies family history of Colorectal cancer Social History Smoking Status: Never smoker Second Hand Exposure: Yes ( smoked around patient); Do You Dip or Chew Tobacco: No; Hx Alcohol Use: No Hx Substance Use: No Preferred Language: Citizen [place] Communication Ability: Effective Visual Impairment: Limited Hearing Ability: Hard of Hearing Frozen Pie Maker Required: No Beliefs That Will Affect Care: None marital status: / Current Living Situation: Family Current Living Situation Comment: Lives with granddaughter and two grandkids current occupational status: retired How many Children do You have: 1 Feels Safe at Home: Yes Childhood Exposure to Second-Hand Smoke: No Diet: regular caffeine: No during the past year weight has: decreased > 10 lbs Dental Care, Regularly: Yes Physical Activity Frequency: 1-2 Times per Week Seatbelt Use: always Sunscreen Use: Yes Assistive Devices: Cane and Walker Review of Systems Review of Systems: as per HPI Physical Exam Physical Exam: Constitutional: no acute distress HEENT: NCAT, no conjunctival injection CV: RRR, extremities well-perfused, no LE edema, no JVD appreciated Resp: no increased work of breathing, lungs clear to auscultation bilaterally GI: nondistended, nontender to palpation, bowel sounds normal MSK: no gross deformities Skin: warm, dry, venous stasis changes noted in bilateral LEs Neuro: alert, oriented, no focal neurologic deficit appreciated Results & Data Results & Data Vital Signs (Past 12 Hours) Vital Signs Temp Pulse Pulse Resp BP BP Pulse Ox 11/14/24 18:35 82 20 94/57 L 91 11/14/24 18:02 80 11/14/24 17:05 36.6 C 81 20 126/73 100 O2 Del Method 11/14/24 18:35 Room Air 11/14/24 18:02 11/14/24 17:05 Room Air Supervising Physician Co-Signing Physician Notes Attending Attestation & Admit Note: Pt seen/examined, chart reviewed, admit care plan d/w resident physician Dr Sa leroy Engel. I agree w/ the matute components of his admission documentation with the following addition - -acute metabolic encephalopathy 2nd to UTI 84yo female with Raynauds, bilateral PEs on chronic coumadin, glaucoma, steroid- dependent PMR, migraines, fibromyalgia, CAD, AYE (noncompliant with BIPAP), pulmonary HTN, anxiety/depression, chronic venous insufficiency, IBS, GERD, hypothyroidism. Recently treated for e.coli UTI earlier this month. F/u urine cx on 11/10 was indeed negative. Unfortunately she has had recurrent UTI symptoms including dysuria. U/a upon presentation today is highly suggestive of ongoing UTI. s/p IV rocephin in the ER this evening. In addition, the patient has been confused at home for several days. PMH/PSH/allergies/meds/sochx - reviewed vitals: BPs low-normal, afebrile gen - NAD, pleasant mouth - MM dry neck - no JVD heart - RRR, s1 s2 lungs - CTA b/l abd - soft, NT, ND, BS+, no HSM, no flank pain ext - pulses b/l feet 2+ labs reviewed 04/2024 CT abd/pelvis without stones, hydronephrosis, or kidney abnormalities A/P: 1. recent e.coli UTI - s/p appropriate abx treatment - with repeat urine cx negative after her abx course. However, returns with persistent UTI symptoms and u/a suggestive of UTI. 2. steroid-dependent PMR. 3. h/o bilateral PEs on coumadin; INR today subtherapeutic at 1.5 today (compliant with coumadin during her recent illness?). 4. hypothyroidism - recent TSH 09/2024 wnl; cont synthroid. -cont rocephin IV, await urine cx -give 20mg of extra prednisone today for "stress dose" purposes then a quick taper back to usual dose of 5mg/day -will bridge with lovenox 30mg BID while INR is <2 -daily INR while here -patient has pessary by report but doesn't use such; consider referral back to engineering teacher post-d/c for re-fitting as use of pessary may reduce risk of UTI -consider premarin cream twice weekly to help reduce risk of UTI -consider methenamine for UTI prophylaxis down the line -patient appears mildly volume contracted, evidenced by low sodium; hydrate with isotonic fluids, repeat BMP am Jesse Davila MD Resident Activity Tracking Resident Involvement: Resident Care Provided Care Provided: Adult Hospital Medicine (17) GERD (gastroesophageal reflux disease) Esophagitis presence: esophagitis presence not specified Qualified Code(s): K21.9 - Gastro-esophageal reflux disease without esophagitis (19) Asthma Asthma complication type: uncomplicated Asthma persistence: intermittent Asthma severity: mild Qualified Code(s): J45.20 - Mild intermittent asthma, uncomplicated
[2024-11-14] MEDS: predniSONE 20 MG TAB PO STA (21:50)
[2024-11-14] MEDS: SODIUM CHLORIDE 0.9% 1,000 ML IV SCH (22:41)
[2024-11-14] MEDS ORDERED: ALUMINUM/MAGNESIUM SUSP 30 ML UDC PO PRN (23:38)
[2024-11-14] MEDS ORDERED: DOCUSATE SODIUM 100 MG CAP PO PRN (23:38)
[2024-11-14] MEDS ORDERED: ACETAMINOPHEN 325 MG TAB PO PRN (23:38)
[2024-11-14] MEDS ORDERED: ONDANSETRON INJ 2 MG/ML 2 ML VIAL IV PRN (23:38)
[2024-11-14] MEDS ORDERED: POLYETHYLENE (MIRALAX) 17 GM PACK PO PRN (23:38)
[2024-11-14] MEDS ORDERED: ALBUTEROL HFA 8 GM INHALER INH PRN (23:38)
[2024-11-15] MEDS: FAMOTIDINE 20 MG TAB PO SCH (00:38)
[2024-11-15] MEDS: PANTOprazole 40 MG TAB PO SCH (00:38)
[2024-11-15] MEDS: TOPIRAMATE 50 MG TAB PO SCH (00:38)
[2024-11-15] MEDS: GABAPENTIN 300 MG CAP PO SCH (00:38)
[2024-11-15] MEDS: traZODone HCL 50 MG TAB PO SCH (00:38)
[2024-11-15] MEDS: FLUTICASONE/VILANTEROL 100/25MCG 14 PUFFS/INHALER INH SCH (00:39)
[2024-11-15] MEDS: DORZOLAMIDE/TIMOLOL 22.3/6.8MG/ML 10 ML BTL OPB SCH (00:39)
[2024-11-15] MEDS: ENOXAPARIN INJ 30 MG/0.3 ML SYR SQ SCH (00:39)
[2024-11-15] MEDS: ARTIFICIAL TEARS OPL SCH (00:40)
[2024-11-15] MEDS: ARTIFICIAL TEARS OPR SCH (00:40)
[2024-11-15] MEDS: traMADol HCL 50 MG TABLET PO PRN (00:43)
--- NOTE | 2024-11-15 02:02 | XRay Report ---
EXAM: XR KUB/Abdomen 1 view CLINICAL HISTORY: eval stool burden, h/o recurrent UTIs TECHNIQUE: X-ray images of the abdomen were obtained in supine position. COMPARISON: CT dated 04/25/2024 and X-ray on 11/21/2023.. FINDINGS: Gas Pattern: Gas pattern within the abdomen is normal. No evidence of bowel obstruction or distention. Soft Tissues: Multiple metallic densities at the right hypochondrium corresponding to metallic clips referred to prior CT. Soft tissue calcification/ossification of the right gluteal region. Colonic seeds (Sitz markers) are seen within the right side colon. Soft tissues of the abdomen appear normal without evidence of masses. Liver, spleen, and kidneys are of normal size and position. Degenerative changes of the lumbar spine. Bilateral mild arthritic changes of the hip joints. Right side sacroiliitis. IMPRESSION: 1. No gross interval progressive changes. 2. No acute abnormalities identified. 3. Mild fecal loading. Clinical correlation is recommended. Electronically signed by Yaya Goodson 11-15-2024 02:01 AM
[2024-11-15] MEDS: LEVOTHYROXINE SODIUM 75 MCG TABLET PO SCH (06:22)
[2024-11-15 06:24] LABS: Basophils # (auto) 0.01 K/uL (0.00-0.20); Basophils % (auto) 0.2 %; Hematocrit (blood only) 39.2 % (37.0-47.0); Hemoglobin 13.6 g/dl (12.0-16.0); Immature Granulocytes # (auto) 0.02 K/uL (0.01-0.20); Immature Granulocytes % (auto) 0.5 %; Lymphocytes # (auto) 0.68 K/uL (1.20-3.40); Lymphocytes % (auto) 15.4 %; Mean Corpuscular Hemoglobin 31.3 pg (25.0-34.0); Mean Corpuscular Hgb Conc 34.7 g/dL (32.0-36.0); Mean Corpuscular Volume 90.1 fL (80.0-100.0); Mean Platelet Volume 11.4 fL (9.4-12.4); Monocytes # (auto) 0.15 K/uL (0.11-0.59); Monocytes % (auto) 3.4 %; Neutrophils # (auto) 3.56 K/uL (1.40-6.50); Neutrophils % (auto) 80.5 %; Platelet Count 144 K/uL (130-400); RDW Coefficient of Variation 14.8 % (11.5-14.5); RDW Standard Deviation 49.2 fL (36.4-46.3); Red Blood Count 4.35 M/uL (4.20-5.40); White Blood Count 4.42 K/ul (4.8-10.8)
[2024-11-15 07:07] LABS: BUN Creatinine Ratio 22.5 (10-20); Creatinine Clr Calc Pharmacy 35.2 ml/min
[2024-11-15 07:11] LABS: INR 1.7 (0.9-1.1); Prothrombin Time 17.6 Seconds (9.0-12.0)
[2024-11-15] MEDS: MAGNESIUM OXIDE 400 MG TAB PO SCH (07:52)
[2024-11-15] MEDS: predniSONE 5 MG TAB PO SCH (07:52)
[2024-11-15] MEDS: ZINC SULFATE 220 MG CAPSULE PO SCH (07:52)
[2024-11-15] MEDS: DULoxetine HCL 60 MG CAP PO SCH (07:52)
[2024-11-15] MEDS: FEXOFENADINE HCL 180 MG TAB PO SCH (07:53)
[2024-11-15] MEDS: CHOLECALCIFEROL 25 MCG (1000 UNITS) TAB PO SCH (07:53)
[2024-11-15] MEDS: MULTIVITAMIN TAB PO SCH (07:53)
--- NOTE | 2024-11-15 10:45 | Hospitalist Progress Note ---
Date of Service November 15, 2024 Assessment & Plan (1) UTI (urinary tract infection): Plan: Continue Ceftriaxone IV 2g/day, tailor abx based on C&S (2) Hyponatremia: Plan: -Na 133 -lasix on hold (3) Subtherapeutic international normalized ratio (INR): Plan: Continue Warfarin 1mg Wed, 2mg/d all other days of the week Bridge with Lovenox until INR 2-3 (4) Fibromyalgia: Plan: Continue Cymbalta and Tramadol (5) Asthma: Plan: Continue Breo Ellipta maintenance inhaler, albuterol rescue inhaler PRN (6) Hypothyroid: Plan: Continue Levothyroxine Admission and Anticipated Discharge Date Admission Date: November 14, 2024 Subjective No events overnight. Pt resting comfortably in chair. Review of Systems Review of Systems: CONST: Negative for fever, body aches and chills. HENT: Negative for neck pain/stiffness, headache, congestion, sore throat, swelling. EYES: Negative for discharge/pain or vision changes. RESP: Negative for cough/hemoptysis and shortness of breath. CV: Negative chest pain, difficulty breathing, palpitations. ABD: Negative pain, nausea, vomiting. : Negative increase frequency, dysuria, blood in urine or stool. MUSC: Negative for muscle aches, edema. SKIN: Negative rash, lesions/sores. NEURO: Negative headache, dizziness, weakness. Physical Exam Physical Exam: GENERAL APPEARANCE NAD, activity normal for age, well developed/ well nourished, no cyanosis, pallor, or diaphoresis. EYES lids/conjunctiva normal. EARS/NOSE/THROAT Mucous membranes moist, nares normal, lips/teeth normal uvula midline without oral pharyngeal erythema, exudate or swelling TMs normal bilaterally. No lymphangitis/lymphedema. HEAD/NECK normocephalic atraumatic, no facial trauma, neck is supple. RESPIRATORY respiratory effort normal, speaks in full sentences, no tripod position, no accessory muscle use. Lungs clear to auscultation without rhonchi, wheezes, rales CARDIAC Regular rate and rhythm, no edema. ABDOMINAL Soft, ND/NT. No evidence of fluid wave. No pulsatile masses on exam, rebound tenderness, Hernandez sign or pain over Mcburney's point. MUSCLES/EXTREMITIES No abnormal range of motion, no swelling. SKIN Warm, pink and dry. No rashes, dermatoses, petechiae or lesions. NEUROLOGICAL Speech is clear and appropriate. Normal level of consciousness. Gait and coordination are normal. 5/5 strength in all extremities. PSYCH Normal mood and affect. Judgement/competence is appropriate Results & Data Results & Data Vital Signs (Past 12 Hours) Vital Signs Temp Pulse Pulse Resp BP Pulse Ox O2 Del Method 11/15/24 07:50 Room Air 11/15/24 07:45 36.4 C L 64 16 98/54 L 98 Nasal Cannula 11/15/24 07:28 72 11/15/24 02:55 37.0 C 75 18 117/64 92 Nasal Cannula 11/15/24 00:06 36.7 C 87 18 111/69 91 Room Air 11/14/24 23:40 83 11/14/24 23:38 36.7 C 87 18 111/69 91 Room Air O2 Flow Rate 11/15/24 07:50 11/15/24 07:45 3 11/15/24 07:28 11/15/24 02:55 2 11/15/24 00:06 11/14/24 23:40 11/14/24 23:38 PG Care Time/CCT Total # of Minutes Spent Total Time Spent with Patient: Total time spent is greater than 50% in coordination of care (as documented) at patient's floor/unit and/or counseling patient: Coding Level of Care Code 25782 SUB INP/OBS CARE 2/35MIN Diagnoses UTI (urinary tract infection) N39.0 Hyponatremia E87.1 Subtherapeutic international normalized ratio (INR) R79.1 Fibromyalgia M79.7 Mild intermittent asthma without complication J45.20 Asthma severity: mild Asthma persistence: intermittent Asthma complication type: uncomplicated Hypothyroid E03.9 (5) Asthma Asthma severity: mild Asthma persistence: intermittent Asthma complication type: uncomplicated Qualified Code(s): J45.20 - Mild intermittent asthma, uncomplicated
[2024-11-15] MEDS ORDERED: ALBUT/IPRATROP 3MG/0.5MG NEB 3 ML VIAL NEB PRN (12:04)
--- NOTE | 2024-11-15 12:33 | XRay Report ---
XR chest 1V portable CLINICAL HISTORY: hypoxia COMPARISON STUDY: 06/25/2023 FINDINGS: Stable mild cardiomegaly without pulmonary vascular congestion. No effusion, consolidation, or pneumothorax. IMPRESSION: No acute findings. ACT 112: Negative or not required by law. Electronically signed by: Brenden Mcclendon M.D. 11/15/2024 12:32 PM
[2024-11-15] MEDS: WARFARIN SOD 2 MG TAB PO SCH (15:48)
[2024-11-15] MEDS: MELATONIN 3 MG TAB PO PRN (20:43)
[2024-11-15] MEDS: cefTRIAXone SODIUM 2,000 MG/50 ML BAG IV SCH (20:44)
--- NOTE | 2024-11-15 23:32 | Billing Data ---
Date of Service November 14, 2024 Coding Level of Care Code 82123 INT INP/OBS CARE
[2024-11-16 07:38] LABS: Basophils # (auto) 0.02 K/uL (0.00-0.20); Basophils % (auto) 0.7 %; Eosinophils # (auto) 0.01 K/uL (0.00-0.50); Eosinophils % (auto) 0.3 %; Hematocrit (blood only) 39.3 % (37.0-47.0); Hemoglobin 13.4 g/dl (12.0-16.0); Immature Granulocytes # (auto) 0.03 K/uL (0.01-0.20); Lymphocytes # (auto) 0.42 K/uL (1.20-3.40); Lymphocytes % (auto) 14.7 %; Mean Corpuscular Hemoglobin 31.4 pg (25.0-34.0); Mean Corpuscular Hgb Conc 34.1 g/dL (32.0-36.0); Mean Platelet Volume 11.1 fL (9.4-12.4); Monocytes % (auto) 10.5 %; Neutrophils # (auto) 2.08 K/uL (1.40-6.50); Neutrophils % (auto) 72.8 %; Platelet Count 140 K/uL (130-400); RDW Coefficient of Variation 15.2 % (11.5-14.5); RDW Standard Deviation 51.3 fL (36.4-46.3); Red Blood Count 4.27 M/uL (4.20-5.40); White Blood Count 2.86 K/ul (4.8-10.8)
[2024-11-16 07:51] LABS: BUN Creatinine Ratio 23.5 (10-20); Calcium 8.7 mg/dl (8.6-10.3); Creatinine Clr Calc Pharmacy 38.3 ml/min; Potassium 3.7 mmol/L (3.5-5.1)
--- NOTE | 2024-11-16 10:09 | Hospitalist Progress Note ---
Date of Service November 16, 2024 Assessment & Plan (1) UTI (urinary tract infection): Plan: Continue Ceftriaxone IV 2g/day, tailor abx based on C&S Will discharge home on cefdinir (2) History of pulmonary embolus (PE): Plan: -pt with decreased 02 sats with supratherapeutic INR on admission -requiring 02 while in hospital -will order CTA chest to r/o progressing PE -con't supplemental 02 -on lovenox bridge will INR subtheraputic (3) Hyponatremia: Plan: -Na 133 -lasix on hold (4) Subtherapeutic international normalized ratio (INR): Plan: Continue Warfarin 1mg Wed, 2mg/d all other days of the week Bridge with Lovenox until INR 2-3 (5) Fibromyalgia: Plan: Continue Cymbalta and Tramadol (6) Asthma: Plan: Continue Breo Ellipta maintenance inhaler, albuterol rescue inhaler PRN (7) Hypothyroid: Plan: Continue Levothyroxine Admission and Anticipated Discharge Date Admission Date: November 14, 2024 Subjective No events overnight. Pt resting comfortably in chair. Pt requiring 2LNC overnight. Review of Systems Review of Systems: CONST: Negative for fever, body aches and chills. HENT: Negative for neck pain/stiffness, headache, congestion, sore throat, swelling. EYES: Negative for discharge/pain or vision changes. RESP: Negative for cough/hemoptysis and shortness of breath. CV: Negative chest pain, difficulty breathing, palpitations. ABD: Negative pain, nausea, vomiting. : Negative increase frequency, dysuria, blood in urine or stool. MUSC: Negative for muscle aches, edema. SKIN: Negative rash, lesions/sores. NEURO: Negative headache, dizziness, weakness. Physical Exam 2 Physical Exam: GENERAL APPEARANCE NAD, activity normal for age, well developed/ well nourished, no cyanosis, pallor, or diaphoresis. EYES lids/conjunctiva normal. EARS/NOSE/THROAT Mucous membranes moist, nares normal, lips/teeth normal uvula midline without oral pharyngeal erythema, exudate or swelling TMs normal bilaterally. No lymphangitis/lymphedema. HEAD/NECK normocephalic atraumatic, no facial trauma, neck is supple. RESPIRATORY respiratory effort normal, speaks in full sentences, no tripod position, no accessory muscle use. Lungs clear to auscultation without rhonchi, wheezes, rales CARDIAC Regular rate and rhythm, no edema. ABDOMINAL Soft, ND/NT. No evidence of fluid wave. No pulsatile masses on exam, rebound tenderness, Hernandez sign or pain over Mcburney's point. MUSCLES/EXTREMITIES No abnormal range of motion, no swelling. SKIN Warm, pink and dry. No rashes, dermatoses, petechiae or lesions. NEUROLOGICAL Speech is clear and appropriate. Normal level of consciousness. Gait and coordination are normal. 5/5 strength in all extremities. PSYCH Normal mood and affect. Judgement/competence is appropriate Results & Data Results & Data Vital Signs (Past 12 Hours) Vital Signs Temp Pulse Pulse Resp BP Pulse Ox O2 Del Method 11/16/24 08:03 36.2 C L 65 20 116/69 97 Nasal Cannula 11/16/24 07:12 70 11/16/24 04:00 36.4 C L 68 20 98/59 L 93 Room Air 11/15/24 23:59 69 11/15/24 23:31 36.5 C 66 20 94/55 L 92 Room Air O2 Flow Rate 11/16/24 08:03 2 11/16/24 07:12 11/16/24 04:00 11/15/24 23:59 11/15/24 23:31 PG Care Time/CCT Total # of Minutes Spent Total Time Spent with Patient: Total time spent is greater than 50% in coordination of care (as documented) at patient's floor/unit and/or counseling patient: Coding Level of Care Code 90451 SUB INP/OBS CARE 2/35MIN Diagnoses UTI (urinary tract infection) N39.0 History of pulmonary embolus (PE) Z86.711 Hyponatremia E87.1 Subtherapeutic international normalized ratio (INR) R79.1 Fibromyalgia M79.7 Mild intermittent asthma without complication J45.20 Asthma severity: mild Asthma persistence: intermittent Asthma complication type: uncomplicated Hypothyroid E03.9 (6) Asthma Asthma severity: mild Asthma persistence: intermittent Asthma complication type: uncomplicated Qualified Code(s): J45.20 - Mild intermittent asthma, uncomplicated
[2024-11-16 10:27] VITALS: RESP 16
[2024-11-16] MEDS: OPTIRAY 320 125ml IV ONE (11:05)
--- NOTE | 2024-11-16 11:44 | CT Scan Report ---
CT angio chest PE protocol CT DOSE: 389.2 mGy.cm HISTORY: 84 years-old Female with h/o PE, r/o acute. Acute shortness of breath and patient with his tory of pulmonary embolus TECHNIQUE: Multiple CTA images of the chest were obtained after the intravenous administration of 65 ml Optiray. Coronal and sagittal MIPS were obtained from the axial data set and were submitted for r [id number]. All measurements were obtained according to NASCET criteria. A dose lowering technique was ut ilized adhering to the principles of ALARA. COMPARISON: Chest radiograph 11/15/2024, chest CT April 25, 2024, CTA chest 05/19/2023, 02/18/2022. FINDINGS: CTA: Heart is upper limits of normal in size. Dilated right ventricle is unchanged. Mild coronary artery c alcifications. Atherosclerosis of the thoracic aorta without aneurysm. The main pulmonary artery alex ures 3.2 cm transversely. Chronic nonocclusive segmental and subsegmental pulmonary emboli again note d, most pronounced in the lower lobes. Additionally, there is peripheral nonocclusive pulmonary embol us involving the right main pulmonary artery extending into the right lower lobar branch. On image 12 1 series 4 this measures up to 5.7 cm in length and has progressed compared to April 25, 2024. CT CHEST: No thyroid nodule. Right hilar lymphadenopathy measures up to 2.9 x 1.6 cm, previously 3.0 x 1.47 m. No new or progressive lymphadenopathy. No pneumothorax, pleural effusion or overt pulmonary edema. Biapical pleural parenchymal scarring red emonstrated. Additionally, there are progressively worsened mild biapical round glass opacities, righ t greater than left. Linear 8 mm fissural nodule within the right midlobe on image 109 suggestive of a benign lymph node. This is stable. Central airways are patent. No acute upper abdominal abnormality. Soft tissues are within normal limits. No acute fracture. IMPRESSION: 1. No acute occlusive pulmonary emboli identified. 2. Chronic nonocclusive bibasilar segmental and subsegmental pulmonary emboli appear generally stable dating back to the 02/18/2022 study. Additionally, there is eccentric nonocclusive chronic-appearing pulmonary emboli involving the right main pulmonary artery which appears more conspicuous/mildly prog ressed compared to the April 25, 2024 study. 3. Biapical pleural parenchymal scarring redemonstrated. There are progressive apical groundglass opa cities which may also be related to the scarring with atelectasis versus a mild nonspecific infectiou s or inflammatory process. 4. Stable right hilar lymphadenopathy. ACT 112: Negative or not required by law. The above report was generated using voice recognition software. It may contain grammatical, syntax o r spelling errors. Electronically signed by: Abilio Rick M.D. 11/16/2024 11:42 AM
[2024-11-16 16:13] VITALS: BP 103/59; PULSE 80; TEMP 98.1; O2SAT 95
--- NOTE | 2024-11-16 16:20 | Discharge Summary ---
Discharge Summary Date of Service November 16, 2024 Principal Dx & Hospital Course #1 = Principal Diagnosis (1) UTI (urinary tract infection): Continue Ceftriaxone IV 2g/day, tailor abx based on C&S Will discharge home on cefdinir (2) History of pulmonary embolus (PE): -pt with decreased 02 sats with supratherapeutic INR on admission -requiring 02 while in hospital -will order CTA chest to r/o progressing PE -con't supplemental 02 -on lovenox bridge will INR subtheraputic (3) Hyponatremia: -Na 133 -lasix on hold (4) Subtherapeutic international normalized ratio (INR): Continue Warfarin 1mg Wed, 2mg/d all other days of the week Bridge with Lovenox until INR 2-3 (5) Fibromyalgia: Continue Cymbalta and Tramadol (6) Asthma: Continue Breo Ellipta maintenance inhaler, albuterol rescue inhaler PRN (7) Hypothyroid: Continue Levothyroxine Admission HPI Per Admitting Provider 84 year old female with PMH that includes Raynauds, h/o bilateral PEs on Coumadin, glaucoma, PMR, migraines, fibromyalgia, CAD, AYE with pulmonary HTN, anxiety/depression, chronic venous insufficiency, IBS, GERD, hypothyroidism presenting with urinary sx x2 weeks. Patient reports increased urinary frequency and dysuria x2 weeks. Patient was treated with 7 days of Keflex starting on 11/02. Urine culture at that time grew pena-sensitive e. coli. Patient reports that sx initially seemed to improve, but recurred over past several days. Repeat urine culture following completion of Keflex negative on 11/10. Patient also reports chills, weakness. Denies abdominal pain, N/V. Denies flank pain. Patient has IBS-D. Patient has h/o pelvic organ prolapse, previously had a pessary fitted but stopped using because it would pop out when straining to have a bowel movement. ED Course: UA consistent with UTI, urine culture pending. S/P Ceftriaxone 2g x1 Discharge Exam GENERAL APPEARANCE NAD, activity normal for age, well developed/ well nourished, no cyanosis, pallor, or diaphoresis. EYES lids/conjunctiva normal. EARS/NOSE/THROAT Mucous membranes moist, nares normal, lips/teeth normal uvula midline without oral pharyngeal erythema, exudate or swelling TMs normal bilaterally. No lymphangitis/lymphedema. HEAD/NECK normocephalic atraumatic, no facial trauma, neck is supple. RESPIRATORY respiratory effort normal, speaks in full sentences, no tripod position, no accessory muscle use. Lungs clear to auscultation without rhonchi, wheezes, rales CARDIAC Regular rate and rhythm, no edema. ABDOMINAL Soft, ND/NT. No evidence of fluid wave. No pulsatile masses on exam, rebound tenderness, Hernandez sign or pain over Mcburney's point. MUSCLES/EXTREMITIES No abnormal range of motion, no swelling. SKIN Warm, pink and dry. No rashes, dermatoses, petechiae or lesions. NEUROLOGICAL Speech is clear and appropriate. Normal level of consciousness. Gait and coordination are normal. 5/5 strength in all extremities. PSYCH Normal mood and affect. Judgement/competence is appropriate Discharge Plan Discharge Items Patient Disposition: Home - Self-Care Reason For Visit: UTI Discharge Diagnosis: UTI Condition on Discharge: Fair Activity: Resume your previous activity Non-emergency contact: Primary Care Provider Call non-emergency contact if: you have any medication questions Follow-up/Referrals: Gege Alexis MD [Primary Care Provider] - 11/24/24 11:00 am Diet: Regular Addtl Attending Provider Instructions: Follow up with PPMD in 2 weeks Pending Studies at Discharge: No Stand-Alone Forms: My [facility] Porous Power, Smoking Cessation Medications and DC Order Prescriptions: New cefdinir 300 mg capsule 300 mg PO BID 5 Days Qty: 10 0RF Continued Orazinc 25 mg zinc (110 mg) tablet 25 mg PO QAM acetaminophen 500 mg tablet 500 mg PO DAILY PRN (Reason: Pain) fluticasone furoate-vilanterol [Breo Ellipta] 100-25 mcg/dose blister with device 1 inh inhalation QPM Qty: 60 3RF levothyroxine 75 mcg tablet 75 mcg PO DAILYBB Qty: 90 3RF Rx Instructions: TAKE 1 TABLET BY MOUTH DAILY warfarin 2 mg tablet See Rx Instructions PO UD Qty: 85 1RF Rx Instructions: 1mg q Thursday, 2mg x 6 days per [facility] orally use as directed latanoprost 0.005 % drops 1 drops OPB QPM trazodone 100 mg tablet 50 mg PO QPM Rx Instructions: Patient only taking 50mg at bedtime (03/05/2023) furosemide 20 mg tablet 20 mg PO QAM Systane Gel 0.3 % gel 1 drp OPR BID Rx Instructions: Uses in Right eye Systane Ultra 0.4-0.3 % drops 1 drp OPL BID Rx Instructions: uses in left eye albuterol sulfate 90 mcg/actuation HFA aerosol inhaler 2 puff INH Q4H PRN (Reason: shortness of breath or wheezing) Qty: 1 11RF tramadol 50 mg tablet 50 mg PO AMHS PRN (Reason: pain) Qty: 60 0RF multivitamin Tablet 1 tab PO QAM duloxetine [Cymbalta] 60 mg capsule,delayed release(DR/EC) 120 mg PO QAM dorzolamide-timolol 22.3-6.8 mg/mL drops 1 drp OPB BID cholecalciferol (vitamin D3) [Vitamin D3] 25 mcg (1,000 unit) Tablet 100 mcg PO QAM fexofenadine 180 mg Tablet 180 mg PO QAM magnesium 250 mg Tablet 250 mg PO QAM docusate sodium 100 mg capsule 100 mg PO QAM PRN (Reason: Constipation) famotidine 20 mg tablet 20 mg PO HS gabapentin 300 mg capsule 300 mg PO BID montelukast 10 mg tablet 10 mg PO HS topiramate 50 mg tablet 50 mg PO HS pantoprazole 40 mg tablet,delayed release (DR/EC) 40 mg PO BID prednisone 5 mg tablet 5 mg PO DAILY Discharge Orders: Discharge Order (Routine); Ordered 11/16/24 Ordered By: Ankit Clemens Admission Data Admit Date/Time: 11/14/24 21:29 Attending Provider: Ankit Clemens Admit Provider: Fam Engel Primary Care Provider: Gege Alexis Other Providers: IRB Approved Study,[facility] Stay Data Diagnostic Imagining Performed 11/16/24 10:02 CT angio chest PE protocol Routine Pending Results Patient Have Any Pending Studies at Discharge: No Discharge Instructions Given to Patient (Per Discharging Provider) Follow up with PPMD in 2 weeks Total Time Total Time Spent Total Time Spent (In Minutes): 50 Coding Level of Care Code 13960 INP/OBS DISCH >30 MIN Diagnoses UTI (urinary tract infection) N39.0 History of pulmonary embolus (PE) Z86.711 Hyponatremia E87.1 Subtherapeutic international normalized ratio (INR) R79.1 Fibromyalgia M79.7 Mild intermittent asthma without complication J45.20 Asthma severity: mild Asthma persistence: intermittent Asthma complication type: uncomplicated Hypothyroid E03.9
[2024-11-16] MEDS: WARFARIN SOD 1 MG TAB PO SCH (16:23)
== END 2024-11-16 17:32 | disposition home or self-care (01) | DRG 689 ==
LOC: ED 17:01 → 2N 21:29 → SUATTDRO 21:29 → 2N 23:41

== ENCOUNTER 2025-01-30 15:52 | Inpatient (IN) ==
--- NOTE | 2025-01-30 16:04 | Emergency Department Note ---
Impression & Plan LLQ abdominal pain, Elevated troponin, Acute UTI, Constipation ED Provider Note CHIEF COMPLAINT: Cough, left groin pain HISTORY OF PRESENTING ILLNESS: This 84-year-old female patient presents to the emergency department with her grandson for evaluation of a cough, chills, upper back pain, and left groin/abdominal pain for the past couple of days. The patient denies any injury or trauma. She denies any fever. She denies any nausea or vomiting. Denies any diarrhea or changes in her bowel movements. Denies any urinary symptoms. She states that the upper back pain is mostly in her central upper back radiating towards her shoulders. The patient is on Coumadin. REVIEW OF SYSTEMS: See HPI for pertinent positives and pertinent negatives. ALLERGIES: Aspirin, codeine, erythromycin MEDICATIONS: See below PAST MEDICAL HISTORY: See below PHYSICAL EXAM: VITALS: Vitals are noted on the nurse's note and reviewed by myself. GENERAL: Non toxic, in no acute distress, non-diaphoretic. SKIN: No obvious abnormal rashes or skin lesions in the left lower quadrant or left groin area. No obvious bulging in the left groin area. Capillary refill <2 sec. EYES: PERRLA. EOMI. Conjunctivae without injection, sclerae without icterus. NOSE: Patent without discharge. MOUTH: Mucous membranes moist. Uvula midline. Airway patent. NECK: Supple without nuchal rigidity. No cervical spine tenderness, but the patient is mildly tender to palpation over the bilateral paraspinal muscles and to the bilateral trapezius muscles. She does have full range of motion of the neck without pain. HEART: Regular rate and rhythm without murmurs gallops or rubs. LUNGS: Clear to auscultation bilaterally without wheezes, rales or rhonchi. No retractions or accessory muscle use. ABDOMEN: Positive bowel sounds x 4. Normal tympanic percussion. Soft, tender to palpation in the left lower quadrant in the left groin. No masses or hepatosplenomegaly. Hernandez sign negative. No CVA tenderness. No guarding, rigidity, or rebound tenderness. No focal RLQ tenderness. MUSCULOSKELETAL: Full range of motion of the bilateral upper and lower extremities without pain. No tenderness to palpation of the bilateral upper or lower extremities. Strength 5/5 and equal in the bilateral upper and lower extremities. Peripheral pulses 2+ and equal. NEURO: Patient was alert and oriented. No focal neurological deficits. DIFFERENTIAL DIAGNOSIS: Differential diagnosis includes hepatitis, pancreatitis, cholecystitis, cholelithiasis, appendicitis, kidney stone, pyelonephritis, UTI, gastritis, gastroenteritis, mesenteric adenitis, obstruction, constipation, hernia, abdominal abscess, perforation, diverticulitis, IBD, ischemic colitis, abdominal aortic aneurysm, ovarian cyst, ovarian torsion, acute salpingitis, or others. ED COURSE AND MEDICAL DECISION MAKING: MEDICATIONS GIVEN: 500 mL normal saline solution bolus. Tylenol 1000 mg IV. Rocephin 2 g IV. MONITOR: Continuous cosmetology professor: Order was placed for continuous cosmetology professor. Patient was placed on the cosmetology professor and continuous pulse ox. Patient was noted to be in normal sinus rhythm at an initial rate of 80 bpm per my interpretation. EKG: EKG was interpreted by myself as normal sinus rhythm at 94 bpm with no acute ST or T wave changes. INTERPRETATION OF LABS: I interpreted the labs with full lab results as below in the lab section of this note. Laboratory results pertinent to the emergent complaint are discussed in the MDM section below. The patient was advised to follow up with their PCP and/or specialist(s) for further outpatient monitoring and management of any abnormal results. INTERPRETATION OF IMAGING: Imaging studies were interpreted by myself and read by radiology as per the imaging section of this note. The patient was advised to follow up with their PCP and/or specialist(s) for further outpatient management of any non-emergent abnormal findings. Chest x-ray with stable appearance with no acute cardiopulmonary etiology. CT scan of the abdomen and pelvis with IV contrast shows distention of the urinary bladder with moderate circumferential wall thickening and mucosal enhancement favoring acute cystitis. Extremely large amount of formed stool and gas throughout the colon with no dilated loops of bowel. Severe diverticulosis of the sigmoid colon without pericolonic inflammatory change. Fatty infiltration of the liver. CONSULTATIONS: On-call hospitalist MDM SUMMARY: I examined the patient. The patient started with a cough, chills, upper back pain, and left groin/abdominal pain a couple days ago. Symptoms are getting progressively worse. The patient is hypotensive on exam, but upon review of the patient's previous records, she does have a history of similar low blood pressures and this is likely around her baseline. An IV lock was placed and labs were drawn. She was given 500 mL normal saline solution bolus and Tylenol 1000 mg IV. White blood cell count normal at 5.12. Hemoglobin normal at 13.0. Platelet count low at 69 which is a new finding for her. INR is subtherapeutic at 1.8. Sodium low at 130, chloride low at 94, BUN elevated at 25, glucose elevated at 133, and AST elevated at 48. CMP otherwise without acute abnormalities. Lipase normal. Magnesium normal. Lactate normal. Initial high-sensitivity troponin elevated at 64 with repeat decreased to 58.7. EKG without evidence for STEMI. Urinalysis appears consistent with a UTI with urine culture pending. Chest x-ray with stable appearance with no acute cardiopulmonary etiology. CT scan of the abdomen and pelvis with IV contrast shows distention of the urinary bladder with moderate circumferential wall thickening and mucosal enhancement favoring acute cystitis. Extremely large amount of formed stool and gas throughout the colon with no dilated loops of bowel. Severe diverticulosis of the sigmoid colon without pericolonic inflammatory change. Fatty infiltration of the liver. I had a meaningful discussion about this patient with Dr. Philip who agrees with my assessment and the treatment plan. The patient was given Rocephin 2 g IV. Due to the patient's elevated troponin as well as UTI and significant stool on CT scan, it was felt the patient would benefit from admission for further evaluation and treatment. I spoke with the on-call hospitalist who agreed to admit the patient for further management. Please refer to their dictation for further details. The patient's care was transferred in stable condition. DIAGNOSIS: Left lower quadrant/groin pain - likely secondary to constipation and UTI Elevated troponin UTI Constipation Past Med/Surg History Problem List (Updated 01/31/25 @ 02:05 by Leslie Caballero PA-C) Constipation (Acute) Acute UTI (Acute) Elevated troponin (Acute) LLQ abdominal pain (Acute) Headache (Chronic) Flatulence Acute metabolic encephalopathy Subtherapeutic international normalized ratio (INR) Hyponatremia Chronic sinusitis, unspecified Globus sensation Nasal vestibulitis Bilateral otitis externa Excessive daytime sleepiness Recurrent pulmonary emboli Raynauds disease Anticoagulant long-term use Anticoagulated on Coumadin Bilateral pulmonary embolism (Acute) Arthritis Glaucoma (Chronic) Current chronic use of systemic steroids (Chronic) Hearing difficulty (Chronic) IFG (impaired fasting glucose) (Chronic) Incomplete bladder emptying (Chronic) Migraine (Chronic) Moderate aortic insufficiency (Chronic) Osteoporosis, 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) Urethral stricture (Chronic) 3-vessel coronary artery disease Endometriosis Allergic rhinitis Cervicogenic headache Adult situational stress disorder Cerebrovascular disease Chronic fatigue syndrome with fibromyalgia AYE (obstructive sleep apnea) Traumatic open wound of left lower leg with delayed healing (Acute) Bile duct obstruction Anemia Choledocholithiasis Anxiety and depression Polymyalgia rheumatica Chronic venous insufficiency (Chronic) Balance disorder Neck pain Rosacea History of diverticulosis Nocturnal hypoxemia Medical marijuana use History of GI bleed History of pulmonary embolus (PE) 01/2022--on xarelto--following with Dr. 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 History of COVID-19 01/2022--hospitalized @ [facility]--no symptoms now IBS (irritable bowel syndrome) Pulmonary hypertension Severe per 07/2021 ECHO- PASP 79mmHg--following with [facility] Fibromyalgia (Chronic) GERD (gastroesophageal reflux disease) (Chronic) Hypothyroid Asthma (Chronic) SOB with exertion--uses breo inhaler daily and rescue inhaler prn Chronic insomnia (Chronic) Medical History On home oxygen therapy Sleep apnea Chronic venous insufficiency Pulmonary nodule History of migraine History of gastric ulcer Aortic valve insufficiency Polymyalgia rheumatica Glaucoma Osteoporosis Anxiety 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 Surgical History History of colonoscopy S/P ERCP H/O tubal ligation S/P cataract surgery History of esophagogastroduodenoscopy (EGD) (~2011) History of orthopedic surgery H/O sinus surgery History of lumbar laminectomy History of hysterectomy History of cholecystectomy Family History Mother Diabetes Ovarian cancer Hypertension Kidney disease Father Diabetes Cardiac disorder Hypertension Stroke Alcohol abuse Other specified hearing loss, bilateral Aunt Breast cancer Brother Cancer Alcohol abuse Daughter Alcohol abuse Anxiety Dementia Family/Other Depression Anxiety Other No significant family history Denies family history of Colorectal cancer Social History Smoking Status: Never smoker Second Hand Exposure: Yes ( smoked around patient); Do You Dip or Chew Tobacco: No; Hx Alcohol Use: No Hx Substance Use: No Preferred Language: Jordanian Communication Ability: Effective Visual Impairment: Limited Hearing Ability: Hard of Hearing Active Directory Administrator Required: No Beliefs That Will Affect Care: None marital status: / Current Living Situation: Family Current Living Situation Comment: Lives with granddaughter and two grandkids current occupational status: retired How many Children do You have: 1 Feels Safe at Home: Yes Childhood Exposure to Second-Hand Smoke: No Diet: regular caffeine: No during the past year weight has: decreased > 10 lbs Dental Care, Regularly: Yes Physical Activity Frequency: 1-2 Times per Week Seatbelt Use: always Sunscreen Use: Yes Assistive Devices: Cane and Walker Allergies Allergies Allergy/AdvReac Type Severity Reaction Status Date / Time aspirin Allergy Intermediate GI UPSET Verified 01/30/25 19:50 codeine Allergy Intermediate GI UPSET Verified 01/30/25 19:50 erythromycin base Allergy Intermediate GI UPSET Verified 01/30/25 19:50 Home Meds Home Medications Medication Instructions Recorded Confirmed multivitamin 1 tab PO QAM 06/10/18 01/30/25 latanoprost 0.005 % eye drops 1 drops OPB QPM 03/03/19 01/30/25 dorzolamide 22.3 mg-timolol 6.8 1 drp OPB BID 10/07/20 01/30/25 mg/mL eye drops zinc sulfate 25 mg zinc (110 mg) 25 mg PO QAM 12/11/20 01/30/25 tablet (Orazinc) furosemide 20 mg tablet 20 mg PO QAM 09/18/21 01/30/25 magnesium 250 mg tablet 250 mg PO QAM 09/23/21 01/30/25 cholecalciferol (vitamin D3) 25 100 mcg PO QAM 11/10/21 01/30/25 mcg (1,000 unit) tablet (Vitamin D3) fexofenadine 180 mg tablet 180 mg PO QAM 01/20/23 01/30/25 artificial tears(hypromellose) 0.3 1 drp OPR BID 03/05/23 01/30/25 % eye gel (Systane Gel) docusate sodium 100 mg capsule 100 mg PO QAM PRN Constipation 03/05/23 01/30/25 peg 400-propylene glycol 0.4 %-0.3 1 drp OPL BID 10/12/23 09/08/25 % eye drops (Systane Ultra) trazodone 100 mg tablet 50 mg PO QPM 03/05/23 01/30/25 acetaminophen 500 mg tablet 500 mg PO DAILY PRN Pain 06/22/24 01/30/25 gabapentin 300 mg capsule 300 mg PO BID 11/14/24 01/30/25 prednisone 5 mg tablet 5 mg PO DAILY 11/14/24 01/30/25 warfarin 2 mg tablet See Rx Instructions PO UD 12/02/24 01/30/25 duloxetine 60 mg capsule,delayed 120 mg PO QAM 01/30/25 01/30/25 release famotidine 20 mg tablet 20 mg PO HS 01/30/25 01/30/25 montelukast 10 mg tablet 10 mg PO HS 01/30/25 01/30/25 Previous Rx's Medication Instructions Recorded tramadol 50 mg tablet 50 mg PO AMHS PRN pain #60 tabs 11/20/23 Breo Ellipta 100 mcg-25 mcg/dose 1 inh inhalation QPM #60 ea 12/28/23 powder for inhalation (fluticasone furoate-vilanterol) albuterol sulfate 90 mcg/actuation 2 puff inhalation Q4H PRN 05/17/24 aerosol inhaler shortness of breath or wheezing #1 inhaler pantoprazole 40 mg tablet,delayed 40 mg PO BID 90 days #180 tabs 11/24/24 release levothyroxine 75 mcg tablet 75 mcg PO DAILYBB #90 tabs 12/20/24 topiramate 50 mg tablet 50 mg PO BID #60 tabs 01/05/25 Results & Data (ED) Vital Signs Vital Signs - 24 hr 01/30/25 15:56 01/30/25 16:52 01/30/25 18:45 Temperature 36.6 C Temperature Source Temporal Artery Scan Pulse Rate 71 57 L Pulse Rate [Apical] 90 Pulse Rhythm [Apical] Regular Respiratory Rate 18 19 18 Respiratory Effort / Characteristics Non-Labored Spontaneous Non-Labored Respiratory Depth Normal Normal Respiratory Pattern Regular Regular Blood Pressure 91/58 L Blood Pressure [Left Arm] 108/61 Blood Pressure Mean 69 Blood Pressure Mean [Left Arm] 76 Pulse Oximetry 99 100 Oxygen Delivery Method Room Air Room Air Sepsis Recent Fever Within 48 Hours No Sepsis New/Unexplained Change in Mental Status No Sepsis Action Taken by Nursing No Action Required 01/30/25 19:45 01/30/25 21:00 01/30/25 21:33 Temperature Temperature Source Pulse Rate Pulse Rate [Apical] 88 84 83 Pulse Rhythm [Apical] Regular Regular Regular Respiratory Rate 16 16 20 Respiratory Effort / Characteristics Non-Labored Spontaneous Non-Labored Spontaneous Non-Labored Spontaneous Respiratory Depth Normal Normal Normal Respiratory Pattern Regular Regular Regular Blood Pressure Blood Pressure [Left Arm] 89/52 L 80/43 L 86/51 L Blood Pressure Mean Blood Pressure Mean [Left Arm] 64 55 62 Pulse Oximetry 100 99 100 Oxygen Delivery Method Room Air Room Air Room Air Sepsis Recent Fever Within 48 Hours Sepsis New/Unexplained Change in Mental Status Sepsis Action Taken by Nursing Laboratory Data 01/30/25 16:40 01/30/25 16:40 Lab Results 01/30/25 01/30/25 01/30/25 Range/Units 16:40 18:16 18:29 WBC 5.12 (4.8-10.8) K/ul RBC 3.98 L (4.20-5.40) M/uL Hgb 13.0 (12.0-16.0) g/dl Hct 36.5 L (37.0-47.0) % MCV 91.7 (80.0-100.0) fL MCH 32.7 (25.0-34.0) pg MCHC 35.6 (32.0-36.0) g/dL RDW Std Deviation 55.8 H (36.4-46.3) fL RDW Coeff of Sudha 16.6 H (11.5-14.5) % Plt Count 69 L (130-400) K/uL MPV 12.4 (9.4-12.4) fL Immature Gran % (Auto) 0.8 % Neut % (Auto) 68.7 % Lymph % (Auto) 18.4 % [place] % (Auto) 11.5 % Eos % (Auto) 0.2 % Baso % (Auto) 0.4 % Neut # (Auto) 3.52 (1.40-6.50) K/uL Lymph # (Auto) 0.94 L (1.20-3.40) K/uL [place] # (Auto) 0.59 (0.11-0.59) K/uL Eos # (Auto) 0.01 (0.00-0.50) K/uL Baso # (Auto) 0.02 (0.00-0.20) K/uL Immature Gran # (Auto) 0.04 (0.01-0.20) K/uL Toxic Granulation 1+ Platelet Estimate Decreased L (Normal) PT Cancelled 18.9 H INR Cancelled 1.8 H APTT Cancelled 38 H PTT Ratio Cancelled 1.4 Sodium 130 L (136-145) mmol/L Potassium 3.6 (3.5-5.1) mmol/L Chloride 94 L (98-107) mmol/L Carbon Dioxide 27 (21-32) mmol/L Anion Gap 9 (3-11) BUN 25 H (6-23) mg/dl Creatinine 1.01 (0.6-1.2) mg/dl Est Cr Clr Drug Dosing Not Reportable eGFR 54.89 BUN/Creatinine Ratio 24.8 H (10-20) Glucose 133 H (70-99(Fasting)) mg/dl Calcium 8.6 (8.6-10.3) mg/dl Magnesium 2.0 (1.7-2.4) mg/dl Total Bilirubin 1.0 (0.2-1.0) mg/dl AST 48 H (13-39) U/L ALT 24 (7-52) U/L Alkaline Phosphatase 61 (34-104) U/L Troponin I High Sens 64.0 H* 58.7 H* (0-14) pg/ml Total Protein 5.7 L (6.0-8.3) gm/dl Albumin 3.4 (3.4-5.0) gm/dl Globulin 2.3 L (2.5-4.0) gm/dl Albumin/Globulin Ratio 1.5 (0.9-2) Lipase 15 (11-82) U/L Urine Color Urine Appearance (Clear) Urine pH (4.5-7.5) Ur Specific [place] (1.000-1.030) Urine Protein (Negative) Urine Glucose (UA) (Negative) Urine Ketones (Negative) Urine Blood (Negative) Urine Nitrite (Negative) Urine Bilirubin (Negative) Urine Urobilinogen (Negative) Ur Leukocyte Esterase (Negative) Urine RBC (0-2) /hpf Urine WBC (0-5) /hpf Ur Epithelial Cells (0-2) /hpf Urine Bacteria (None Seen) Urine Comment 01/30/25 Range/Units 18:42 WBC (4.8-10.8) K/ul RBC (4.20-5.40) M/uL Hgb (12.0-16.0) g/dl Hct (37.0-47.0) % MCV (80.0-100.0) fL MCH (25.0-34.0) pg MCHC (32.0-36.0) g/dL RDW Std Deviation (36.4-46.3) fL RDW Coeff of Sudha (11.5-14.5) % Plt Count (130-400) K/uL MPV (9.4-12.4) fL Immature Gran % (Auto) % Neut % (Auto) % Lymph % (Auto) % [place] % (Auto) % Eos % (Auto) % Baso % (Auto) % Neut # (Auto) (1.40-6.50) K/uL Lymph # (Auto) (1.20-3.40) K/uL [place] # (Auto) (0.11-0.59) K/uL Eos # (Auto) (0.00-0.50) K/uL Baso # (Auto) (0.00-0.20) K/uL Immature Gran # (Auto) (0.01-0.20) K/uL Toxic Granulation Platelet Estimate (Normal) PT INR APTT PTT Ratio Sodium (136-145) mmol/L Potassium (3.5-5.1) mmol/L Chloride (98-107) mmol/L Carbon Dioxide (21-32) mmol/L Anion Gap (3-11) BUN (6-23) mg/dl Creatinine (0.6-1.2) mg/dl Est Cr Clr Drug Dosing eGFR BUN/Creatinine Ratio (10-20) Glucose (70-99(Fasting)) mg/dl Calcium (8.6-10.3) mg/dl Magnesium (1.7-2.4) mg/dl Total Bilirubin (0.2-1.0) mg/dl AST (13-39) U/L ALT (7-52) U/L Alkaline Phosphatase (34-104) U/L Troponin I High Sens (0-14) pg/ml Total Protein (6.0-8.3) gm/dl Albumin (3.4-5.0) gm/dl Globulin (2.5-4.0) gm/dl Albumin/Globulin Ratio (0.9-2) Lipase (11-82) U/L Urine Color Yellow Urine Appearance Cloudy A (Clear) Urine pH 6.0 (4.5-7.5) Ur Specific [place] 1.010 (1.000-1.030) Urine Protein 1+ H (Negative) Urine Glucose (UA) Negative (Negative) Urine Ketones Negative (Negative) Urine Blood 3+ H (Negative) Urine Nitrite Negative (Negative) Urine Bilirubin Negative (Negative) Urine Urobilinogen Negative (Negative) Ur Leukocyte Esterase 3+ H (Negative) Urine RBC 3-5 H (0-2) /hpf Urine WBC >50 H (0-5) /hpf Ur Epithelial Cells 0-2 (0-2) /hpf Urine Bacteria 1+ H (None Seen) Urine Comment Administered Medications Lactated Ringer's (Lr) 1,000 mls @ 125 mls/hr IV .Q8H INES Stop: 01/31/25 13:59 Last Admin: 01/30/25 23:27 Dose: 125 mls/hr Documented By: JARRELL Discontinued Medications Sodium Chloride (Nss) 500 mls @ 999 mls/hr IV .Q31M ONE Stop: 01/30/25 16:51 Last Infusion: 01/30/25 18:09 Dose: Infused Documented By: cristian Admin: 01/30/25 16:43 Dose: 999 mls/hr Documented By: cristian Acetaminophen (Ofirmev) 1,000 mg in 100 mls @ 400 mls/hr IV NOW STA Stop: 01/30/25 16:35 Last Infusion: 01/30/25 18:09 Dose: Infused Documented By: cristian Admin: 01/30/25 16:43 Dose: 400 mls/hr Documented By: cristian Ceftriaxone Sodium (Rocephin) 2,000 mg in 50 mls @ 100 mls/hr IV NOW STA Stop: 01/30/25 19:43 Last Infusion: 01/30/25 20:15 Dose: Infused Documented By: Admin: 01/30/25 19:44 Dose: 100 mls/hr Documented By: JERMAIN Sodium Chloride (Nss) 1,000 mls @ 999 mls/hr IV .Q1H1M ONE Stop: 01/30/25 22:20 Last Infusion: 01/30/25 23:47 Dose: Infused Documented By: Admin: 01/30/25 21:33 Dose: 999 mls/hr Documented By: JERMAIN Sodium Chloride (Nss) 1,000 mls @ 999 mls/hr IV .Q1H1M ONE Stop: 01/31/25 00:43 Last Admin: 01/30/25 23:56 Dose: 999 mls/hr Documented By: JARRELL Ioversol (Optiray 320 100ml) 93 ml IV ONCE ONE Stop: 01/30/25 17:38 Last Admin: 01/30/25 17:37 Dose: 93 ml Documented By: STONE Polyethylene Glycol (Polyethylene (Miralax) 17 Gm Pack) 17 gm PO NOW STA Stop: 01/30/25 21:46 Last Admin: 01/30/25 23:26 Dose: 17 gm Documented By: JARRELL Prednisone (Prednisone 5 Mg Tab) 5 mg PO NOW ONE Stop: 01/30/25 22:02 Last Admin: 01/30/25 23:26 Dose: 5 mg Documented By: JARRELL Imaging Data Radiologist's Impression: Abdomen/Pelvis CT 01/30/25 16:21 EXAMINATION: Abdomen and pelvis CT with CLINICAL HISTORY: Left lower quadrant and left groin pain PRIORS: 04/25/2024 TECHNIQUE: Contiguous axial images were obtained through the abdomen and pelvis with the use of intravenous contrast. Sagittal and coronal reformations are supplied. FINDINGS: Lung bases unremarkable. Fatty infiltration of the liver noted. Spleen has a heterogeneous appearance, allowing for phase of contrast with patent splenic vein noted. No perisplenic fluid. The gallbladder is absent. Portal vein enhances normally. The pancreas, adrenals and IVC are morphologically unremarkable. Advanced atherosclerotic disease of the aorta and bifurcation. Kidneys enhance symmetrically. No hydronephrosis. An extremely large amount of formed stool and gas present throughout the entire colon. Moderate to severe sigmoid colon diverticulosis. No pericolonic inflammatory change. Urinary bladder is extremely distended with wall thickening and enhancement. No gas in the urinary bladder wall. Mild perivesicular inflammatory change noted. Urinary bladder is low-lying, likely pelvic floor laxity, not fully characterized. No free fluid in the pelvis. No dilated loops of bowel, adenopathy or extra luminal gas. Mesh or surgical clips noted in the ventral abdominal wall with loss of muscle bulk. Anterolisthesis of L4 on L5 and L3 on L4 with advanced degenerative change of the facet joints at these levels. IMPRESSION: 1. Distention of the urinary bladder with moderate circumferential wall thickening and mucosal enhancement favoring Acute Cystitis. Please correlate with urinalysis. 2. Extremely large amount of formed stool and gas throughout the colon with no dilated loops of bowel. 3. Severe diverticulosis of the sigmoid colon without pericolonic inflammatory change. 4. Fatty infiltration of the liver. Electronically signed by Katiuska Peterson 01-30-2025 6:36 PM Chest X-Ray 01/30/25 16:21 Exam: Chest one view portable. Reason for exam: Chest pain. Previous studies: 11/15/2024 FINDINGS: Cardiac size remains normal. Lungs show no acute infiltrate, collapse or edema. IMPRESSION: Stable appearance without acute disease seen on portable chest radiograph. Electronically signed by Brenden Hawkins 01-30-2025 6:34 PM Discharge Plan Visit Data Chief Complaint: Illness Stated Complaint: ILLNESS, SEVERE COUGH, GROIN PAIN ED Provider: Kenneth Philip ED Midlevel Provider: Leslie Caballero Discharge Problem: LLQ abdominal pain, Elevated troponin, Acute UTI, Constipation Patient Disposition: Admitted As Inpatient Condition: Fair Discharge Instructions Interventions: ED Discharge Assessment Last Done: 01/31/25 00:45 Discharge Problem: Constipation Qualifiers: Constipation type: unspecified constipation type Qualified Code(s): K59.00 - Constipation, unspecified
[2025-01-30] MEDS: ACETAMINOPHEN 1,000 MG/100 ML VIAL IV STA (16:43)
[2025-01-30] MEDS: SODIUM CHLORIDE 0.9% 500 ML IV ONE (16:43)
[2025-01-30 17:24] LABS: Alanine Aminotransferase 24 U/L (7-52); Albumin Globulin Ratio 1.5 (0.9-2); Alkaline Phosphatase 61 U/L (34-104); Anion Gap 9 (3-11); Bilirubin,Total 1.0 mg/dl (0.2-1.0); Blood Urea Nitrogen 25 mg/dl (6-23); Calcium 8.6 mg/dl (8.6-10.3); Carbon Dioxide 27 mmol/L (21-32); Chloride 94 mmol/L (98-107); Globulin 2.3 gm/dl (2.5-4.0); Glucose 133 mg/dl (70-99(Fasting)); Lipase 15 U/L (11-82); Magnesium 2.0 mg/dl (1.7-2.4); Potassium 3.6 mmol/L (3.5-5.1); Sodium 130 mmol/L (136-145); Total Protein 5.7 gm/dl (6.0-8.3)
--- NOTE | 2025-01-30 17:27 | Emergency Department Note ---
ED Visit Note ED Physician Supervisory Note & Attestation: I was consulted by the Advanced Practice Provider, Leslie Caballero PA-C. I personally made/approved the management plan and take responsibility for the patient management. I performed a substantive portion of the visit. This includes the aspects of: MDM: 84-year-old female arrives for evaluation of generalized illness cough as well as groin pain. Chest x-ray obtained which is fortunately unremarkable. Blood pressure is a bit soft on arrival however review of chart appears that is baseline for patient. She is anticoagulated this blood clot quite unlikely. Labs started returning with multiple abnormalities pointing to infectious etiology. Given BP at her baseline, no fever, and other findings, I do not feel patient has severe sepsis nor septic shock at this time. Urinalysis consistent with UTI and she was given Rocephin for coverage. Hospitalist consulted for further management. Kenneth Phliip MD
[2025-01-30 17:36] LABS: Hematocrit (blood only) 36.5 % (37.0-47.0); Hemoglobin 13.0 g/dl (12.0-16.0); Mean Corpuscular Hemoglobin 32.7 pg (25.0-34.0); Mean Corpuscular Volume 91.7 fL (80.0-100.0); Platelet Count 69 K/uL (130-400); RDW Standard Deviation 55.8 fL (36.4-46.3); Red Blood Count 3.98 M/uL (4.20-5.40); White Blood Count 5.12 K/ul (4.8-10.8)
[2025-01-30 17:37] LABS: Immature Granulocytes # (auto) 0.04 K/uL (0.01-0.20); Immature Granulocytes % (auto) 0.8 %
[2025-01-30] MEDS: OPTIRAY 320 100ml IV ONE (17:37)
[2025-01-30 17:38] LABS: Toxic Granulation 1+
--- NOTE | 2025-01-30 18:34 | XRay Report ---
Exam: Chest one view portable. Reason for exam: Chest pain. Previous studies: 11/15/2024 FINDINGS: Cardiac size remains normal. Lungs show no acute infiltrate, collapse or edema. IMPRESSION: Stable appearance without acute disease seen on portable chest radiograph. Electronically signed by Brenden Hawkins 01-30-2025 6:34 PM
--- NOTE | 2025-01-30 18:36 | CT Scan Report ---
EXAMINATION: Abdomen and pelvis CT with CLINICAL HISTORY: Left lower quadrant and left groin pain PRIORS: 04/25/2024 TECHNIQUE: Contiguous axial images were obtained through the abdomen and pelvis with the use of intravenous contrast. Sagittal and coronal reformations are supplied. FINDINGS: Lung bases unremarkable. Fatty infiltration of the liver noted. Spleen has a heterogeneous appearance, allowing for phase of contrast with patent splenic vein noted. No perisplenic fluid. The gallbladder is absent. Portal vein enhances normally. The pancreas, adrenals and IVC are morphologically unremarkable. Advanced atherosclerotic disease of the aorta and bifurcation. Kidneys enhance symmetrically. No hydronephrosis. An extremely large amount of formed stool and gas present throughout the entire colon. Moderate to severe sigmoid colon diverticulosis. No pericolonic inflammatory change. Urinary bladder is extremely distended with wall thickening and enhancement. No gas in the urinary bladder wall. Mild perivesicular inflammatory change noted. Urinary bladder is low-lying, likely pelvic floor laxity, not fully characterized. No free fluid in the pelvis. No dilated loops of bowel, adenopathy or extra luminal gas. Mesh or surgical clips noted in the ventral abdominal wall with loss of muscle bulk. Anterolisthesis of L4 on L5 and L3 on L4 with advanced degenerative change of the facet joints at these levels. IMPRESSION: 1. Distention of the urinary bladder with moderate circumferential wall thickening and mucosal enhancement favoring Acute Cystitis. Please correlate with urinalysis. 2. Extremely large amount of formed stool and gas throughout the colon with no dilated loops of bowel. 3. Severe diverticulosis of the sigmoid colon without pericolonic inflammatory change. 4. Fatty infiltration of the liver. Electronically signed by Katiuska Peterson 01-30-2025 6:36 PM
[2025-01-30 18:50] LABS: Appearance Urine Cloudy (Clear); Glucose Urine UA Negative (Negative)
[2025-01-30 19:05] LABS: Epithelial Cell Urine 0-2 /hpf (0-2)
[2025-01-30 19:18] LABS: INR 1.8 (0.9-1.1); Partial Thromboplastin Time 38 Seconds (21-31); Prothrombin Time 18.9 Seconds (9.0-12.0)
[2025-01-30] MEDS: cefTRIAXone SODIUM 2,000 MG/50 ML BAG IV STA (19:44)
[2025-01-30] MEDS: SODIUM CHLORIDE 0.9% 1,000 ML IV ONE ×2 (21:33→23:56)
--- NOTE | 2025-01-30 21:36 | History & Physical Report ---
Date of Service January 30, 2025 Assessment & Plan (1) Acute UTI: (2) Sepsis: (3) Hypotension: (4) Thrombocytopenia: (5) Elevated troponin: (6) Asthma exacerbation: Plan Patient is an 84-year-old female with past medical history of CVA, PMR/fibromyalgia on chronic prednisone therapy, bilateral PEs in 2022 on warfarin, recurrent UTIs, asthma. Patient presented due to not feeling well for several days as well as left groin pain, dysuria, and increase in urinary frequency. She was found to have cystitis and constipation on AP CT is being admitted for concern for sepsis with hypotension (BP 89/52 on admission). #Cystis/Sepsis/hypotension - with septic presentation however not meeting SIRS criteria; WBC 5.12, BP 89/52, otherwise VSS. UA appears positive infection with 3+ LE, >50 WBC, 1+ bacteria. AP CT favoring acute cystitis. History of recurrent UTIs growing pansensitive E. coli and pansensitive Proteus mirabilis. Note that blood pressure is typically on low at baseline. - lactate ordered - Sepsis fluid bolus for ideal body weight = 1797 - given 500 mL NSS in ED - ordered additional 1L NSS on admission, noted to be 78/49 after - additional 1L ordered - BP improved to 102/56 - Continue fluid resuscitation with LR @ 125 ml/hr x 2L - ABX coverage with Rocephin - Blood cultures ordered - however note abx given prior to labs being taken - follow urine cultures - Increase home prednisone from 5 mg daily to 20 mg daily; additional 15 Mg ordered on admission Hold Lasix with hypotension - Trend CBC #thrombocytopenia - Plt count decreased from 140 to 69. Likely 2/2 acute infection above. Hold warfarin Trend CBC - type and screen ordered Defer peripheral smear on admission as otherwise explained by acute infection #elevated troponin - trop 64.0 -> 58.7. EKG without ischemic changes. Patient endorses chronic chest pain from fibromyalgia, unchanged. Likely 2/2 demand ischemia with acute infection above. Trend troponin every 6 hours EKG with chest pain as needed Monitor on telemetry #asthma exacerbation - Patient evaluated at bedside 01/31 230 due to increasing oxygen requirement of 5L NC. With expiratory wheezing bilaterally. Patient noted cough with yellow sputum production for several days - will treat as asthma exacerbation. Symptoms improved after duo-neb at bedside. Mag 2.0. CXR negative for acute changes on arrival to ED. Patient reports no home oxygen use however noted to have history of 2L NC HS ordered. - duo-nebs 6hr scheduled and q2hr prn - covid/flu/rsv swab ordered with recent sick contacts (grandchildren) - increased home prednisone dose as above - continue home inhalers - wean oxygen as tolerated - incentive spirometry ordered - sputum cultures ordered #constipation - AP CT showed extremely large amount of formed stool and gas throughout the colon with no dilated loops of bowel. MiraLAX daily scheduled #hyponatremia - chronic, Na 130. Appears clincally dry on admission. - holding lasix - IVF as above - trend renal panel #PMR/Fibromyalgia - follows with [facility]. - increase 5mg prednisone daily to 10mg daily - continue tramadol, Cymbalta, and trazodone #Moderate aortic and tricuspid regurgitation - follows with [facility] cardiology. - Holding Lasix with hypotension. #AYE with pulmonary HTN - reports not using home Bipap. #History of bilateral PEs in 2022. Holding warfarin as above. INR 1.8 on admission (goal 2-3). Trend INR #Migraines continue Topamax and gabapentin VTE ppx: SCDs, holding Warfarin with thrombocytopenia Dispo: PCU Admission and Anticipated Discharge Date Admission Date: 01/30/25 History of Present Illness Chief Complaint: Illness Primary Care Provider: Gege Alexis MD Patient is an 84-year-old female with past medical history of CVA, PMR/fibromyalgia on chronic prednisone therapy, bilateral PEs in 2022 on warfarin, recurrent UTIs, asthma. Patient presented due to not feeling well for several days as well as left groin pain, dysuria, and increase in urinary frequency. She was found to have cystitis and constipation on AP CT is being admitted for concern for sepsis with hypotension (BP 89/52 on admission). Patient seen at bedside. She stated she was not feeling well for several days. She stated she is always tired, denies any change in this. Denies any fevers or chills. She stated she lives at home with her granddaughters who recently started school and brought home a cold which she felt like she had and has had a cough with yellow sputum production, denies any shortness of breath. She does endorse chest pain however stated it is chronic from her fibromyalgia and unchanged. Patient stated she has had left groin pain for 2 days as well as increase in urinary frequency and dysuria. She has had difficulty walking due to the groin pain. She stated she typically has daily bowel movements that she takes a fiber bar however has not had a bowel movement in 2 days. She denies any nausea or vomiting. She denies nicotine or alcohol use. She stated she no longer uses BiPAP for sleep apnea. She is due for her evening medications, she takes prednisone in the morning. She was previously full code however now wishes to be DNR/DNI. Patient reevaluated at bedside at due to increasing oxygen requirement. With expiratory wheezing bilaterally and increase in work of breathing. DuoNeb ordered and symptoms improved. Allergies Allergy/AdvReac Type Severity Reaction Status Date / Time aspirin Allergy Intermediate GI UPSET Verified 01/30/25 19:50 codeine Allergy Intermediate GI UPSET Verified 01/30/25 19:50 erythromycin base Allergy Intermediate GI UPSET Verified 01/30/25 19:50 Home Medications Medication Instructions Recorded Confirmed Type multivitamin 1 tab PO QAM 06/10/18 01/30/25 History latanoprost 0.005 % eye drops 1 drops OPB QPM 03/03/19 01/30/25 History dorzolamide 22.3 mg-timolol 6.8 1 drp OPB BID 10/07/20 01/30/25 History mg/mL eye drops zinc sulfate 25 mg zinc (110 mg) 25 mg PO QAM 12/11/20 01/30/25 History tablet (Orazinc) furosemide 20 mg tablet 20 mg PO QAM 09/18/21 01/30/25 History magnesium 250 mg tablet 250 mg PO QAM 09/23/21 01/30/25 History cholecalciferol (vitamin D3) 25 100 mcg PO QAM 11/10/21 01/30/25 History mcg (1,000 unit) tablet (Vitamin D3) fexofenadine 180 mg tablet 180 mg PO QAM 01/20/23 01/30/25 History artificial tears(hypromellose) 0.3 1 drp OPR BID 03/05/23 01/30/25 History % eye gel (Systane Gel) docusate sodium 100 mg capsule 100 mg PO QAM PRN Constipation 03/05/23 01/30/25 History peg 400-propylene glycol 0.4 %-0.3 1 drp OPL BID 03/05/23 01/30/25 History % eye drops (Systane Ultra) trazodone 100 mg tablet 50 mg PO QPM 03/05/23 01/30/25 History tramadol 50 mg tablet 50 mg PO AMHS PRN pain #60 tabs 11/20/23 01/30/25 Rx Breo Ellipta 100 mcg-25 mcg/dose 1 inh inhalation QPM #60 ea 12/28/23 01/30/25 Rx powder for inhalation (fluticasone furoate-vilanterol) albuterol sulfate 90 mcg/actuation 2 puff inhalation Q4H PRN 05/17/24 01/30/25 Rx aerosol inhaler shortness of breath or wheezing #1 inhaler acetaminophen 500 mg tablet 500 mg PO DAILY PRN Pain 06/22/24 01/30/25 History gabapentin 300 mg capsule 300 mg PO BID 11/14/24 01/30/25 History prednisone 5 mg tablet 5 mg PO DAILY 11/14/24 01/30/25 History pantoprazole 40 mg tablet,delayed 40 mg PO BID 90 days #180 tabs 11/24/24 01/30/25 Rx release warfarin 2 mg tablet See Rx Instructions PO UD 12/02/24 01/30/25 History levothyroxine 75 mcg tablet 75 mcg PO DAILYBB #90 tabs 12/20/24 01/30/25 Rx topiramate 50 mg tablet 50 mg PO BID #60 tabs 01/05/25 01/30/25 Rx duloxetine 60 mg capsule,delayed 120 mg PO QAM 01/30/25 01/30/25 History release famotidine 20 mg tablet 20 mg PO HS 01/30/25 01/30/25 History montelukast 10 mg tablet 10 mg PO HS 01/30/25 01/30/25 History Past Med/Surg History Problem List (Updated 01/31/25 @ 02:53 by Magdalene Parham PA-C) Asthma exacerbation Thrombocytopenia Hypotension Sepsis Constipation (Acute) Acute UTI (Acute) Elevated troponin (Acute) LLQ abdominal pain (Acute) Headache (Chronic) Flatulence Acute metabolic encephalopathy Subtherapeutic international normalized ratio (INR) Hyponatremia Chronic sinusitis, unspecified Globus sensation Nasal vestibulitis Bilateral otitis externa Excessive daytime sleepiness Recurrent pulmonary emboli Raynauds disease Anticoagulant long-term use Anticoagulated on Coumadin Bilateral pulmonary embolism (Acute) Arthritis Glaucoma (Chronic) Current chronic use of systemic steroids (Chronic) Hearing difficulty (Chronic) IFG (impaired fasting glucose) (Chronic) Incomplete bladder emptying (Chronic) Migraine (Chronic) Moderate aortic insufficiency (Chronic) Osteoporosis, 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) Urethral stricture (Chronic) 3-vessel coronary artery disease Endometriosis Allergic rhinitis Cervicogenic headache Adult situational stress disorder Cerebrovascular disease Chronic fatigue syndrome with fibromyalgia AYE (obstructive sleep apnea) Traumatic open wound of left lower leg with delayed healing (Acute) Bile duct obstruction Anemia Choledocholithiasis Anxiety and depression Polymyalgia rheumatica Chronic venous insufficiency (Chronic) Balance disorder Neck pain Rosacea History of diverticulosis Nocturnal hypoxemia Medical marijuana use History of GI bleed History of pulmonary embolus (PE) 01/2022--on xarelto--following with Dr. Brenden Guillaume at [facility] for suspect chronic thromboembolic pulmonary HTN History of COVID-19 01/2022--hospitalized @ [facility]--no symptoms now IBS (irritable bowel syndrome) Pulmonary hypertension Severe per 07/2021 ECHO- PASP 79mmHg--following with [facility] [place] Fibromyalgia (Chronic) GERD (gastroesophageal reflux disease) (Chronic) Hypothyroid Asthma (Chronic) SOB with exertion--uses breo inhaler daily and rescue inhaler prn Chronic insomnia (Chronic) Medical History On home oxygen therapy Sleep apnea Chronic venous insufficiency Pulmonary nodule History of migraine History of gastric ulcer Aortic valve insufficiency Polymyalgia rheumatica Glaucoma Osteoporosis Anxiety 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 Surgical History History of colonoscopy S/P ERCP H/O tubal ligation S/P cataract surgery History of esophagogastroduodenoscopy (EGD) (~2011) History of orthopedic surgery H/O sinus surgery History of lumbar laminectomy History of hysterectomy History of cholecystectomy Family History Mother Diabetes Ovarian cancer Hypertension Kidney disease Father Diabetes Cardiac disorder Hypertension Stroke Alcohol abuse Other specified hearing loss, bilateral Aunt Breast cancer Brother Cancer Alcohol abuse Daughter Alcohol abuse Anxiety Dementia Family/Other Depression Anxiety Other No significant family history Denies family history of Colorectal cancer Social History Smoking Status: Never smoker Second Hand Exposure: Yes ( smoked around patient); Do You Dip or Chew Tobacco: No; Hx Alcohol Use: No Hx Substance Use: No Preferred Language: French Communication Ability: Effective Visual Impairment: Limited Hearing Ability: Hard of Hearing Resaw Operator Required: No Beliefs That Will Affect Care: None marital status: / Current Living Situation: Family Current Living Situation Comment: Lives with granddaughter and two grandkids current occupational status: retired How many Children do You have: 1 Feels Safe at Home: Yes Childhood Exposure to Second-Hand Smoke: No Diet: regular caffeine: No during the past year weight has: decreased > 10 lbs Dental Care, Regularly: Yes Physical Activity Frequency: 1-2 Times per Week Seatbelt Use: always Sunscreen Use: Yes Assistive Devices: Cane and Walker Review of Systems Review of Systems: see HPI Physical Exam Physical Exam: The patient is awake, alert and oriented 3, well developed and well nourished, normocephalic and atraumatic, in no acute distress. Non-toxic appearing. HEENT- EOMI, mucous membranes dry. Hearing grossly intact. Heart-normal S1 and S2. No murmurs, rubs or gallops. Lungs-wheezing bilaterally, no respiratory distress, no accessory muscle use. Abdomen-normal bowel sounds and soft. No ascites noted. Diffuse tenderness to palpation. Extremities- no clubbing, cyanosis, or edema. Rheumatologic-normal range of motion. Psychiatric-normal affect. Results & Data Results & Data Vital Signs (Past 12 Hours) Vital Signs Temp Pulse Pulse Resp BP BP Pulse Ox 01/30/25 21:33 83 20 86/51 L 100 01/30/25 21:00 84 16 80/43 L 99 01/30/25 19:45 88 16 89/52 L 100 01/30/25 18:45 90 18 108/61 100 01/30/25 16:52 57 L 19 01/30/25 15:56 36.6 C 71 18 91/58 L 99 O2 Del Method 01/30/25 21:33 Room Air 01/30/25 21:00 Room Air 01/30/25 19:45 Room Air 01/30/25 18:45 Room Air 01/30/25 16:52 01/30/25 15:56 Room Air Laboratory Results Lab Results 01/30/25 01/30/25 01/30/25 Range/Units 16:40 18:16 18:29 WBC 5.12 (4.8-10.8) K/ul RBC 3.98 L (4.20-5.40) M/uL Hgb 13.0 (12.0-16.0) g/dl Hct 36.5 L (37.0-47.0) % MCV 91.7 (80.0-100.0) fL MCH 32.7 (25.0-34.0) pg MCHC 35.6 (32.0-36.0) g/dL RDW Std Deviation 55.8 H (36.4-46.3) fL RDW Coeff of Sudha 16.6 H (11.5-14.5) % Plt Count 69 L (130-400) K/uL MPV 12.4 (9.4-12.4) fL Immature Gran % (Auto) 0.8 % Neut % (Auto) 68.7 % Lymph % (Auto) 18.4 % [place] % (Auto) 11.5 % Eos % (Auto) 0.2 % Baso % (Auto) 0.4 % Neut # (Auto) 3.52 (1.40-6.50) K/uL Lymph # (Auto) 0.94 L (1.20-3.40) K/uL [place] # (Auto) 0.59 (0.11-0.59) K/uL Eos # (Auto) 0.01 (0.00-0.50) K/uL Baso # (Auto) 0.02 (0.00-0.20) K/uL Immature Gran # (Auto) 0.04 (0.01-0.20) K/uL Toxic Granulation 1+ Platelet Estimate Decreased L (Normal) PT Cancelled 18.9 H INR Cancelled 1.8 H APTT Cancelled 38 H PTT Ratio Cancelled 1.4 Sodium 130 L (136-145) mmol/L Potassium 3.6 (3.5-5.1) mmol/L Chloride 94 L (98-107) mmol/L Carbon Dioxide 27 (21-32) mmol/L Anion Gap 9 (3-11) BUN 25 H (6-23) mg/dl Creatinine 1.01 (0.6-1.2) mg/dl Est Cr Clr Drug Dosing Not Reportable eGFR 54.89 BUN/Creatinine Ratio 24.8 H (10-20) Glucose 133 H (70-99(Fasting)) mg/dl Lactate (0.4-2.0) mmol/L Calcium 8.6 (8.6-10.3) mg/dl Phosphorus (2.5-4.9) mg/dl Magnesium 2.0 (1.7-2.4) mg/dl Total Bilirubin 1.0 (0.2-1.0) mg/dl AST 48 H (13-39) U/L ALT 24 (7-52) U/L Alkaline Phosphatase 61 (34-104) U/L Troponin I High Sens 64.0 H* 58.7 H* (0-14) pg/ml Total Protein 5.7 L (6.0-8.3) gm/dl Albumin 3.4 (3.4-5.0) gm/dl Globulin 2.3 L (2.5-4.0) gm/dl Albumin/Globulin Ratio 1.5 (0.9-2) Lipase 15 (11-82) U/L Urine Color Urine Appearance (Clear) Urine pH (4.5-7.5) Ur Specific [place] (1.000-1.030) Urine Protein (Negative) Urine Glucose (UA) (Negative) Urine Ketones (Negative) Urine Blood (Negative) Urine Nitrite (Negative) Urine Bilirubin (Negative) Urine Urobilinogen (Negative) Ur Leukocyte Esterase (Negative) Urine RBC (0-2) /hpf Urine WBC (0-5) /hpf Ur Epithelial Cells (0-2) /hpf Urine Bacteria (None Seen) Urine Comment Blood Type Antibody Screen 01/30/25 01/30/25 01/31/25 Range/Units 18:42 23:09 01:35 WBC (4.8-10.8) K/ul RBC (4.20-5.40) M/uL Hgb (12.0-16.0) g/dl Hct (37.0-47.0) % MCV (80.0-100.0) fL MCH (25.0-34.0) pg MCHC (32.0-36.0) g/dL RDW Std Deviation (36.4-46.3) fL RDW Coeff of Sudha (11.5-14.5) % Plt Count (130-400) K/uL MPV (9.4-12.4) fL Immature Gran % (Auto) % Neut % (Auto) % Lymph % (Auto) % [place] % (Auto) % Eos % (Auto) % Baso % (Auto) % Neut # (Auto) (1.40-6.50) K/uL Lymph # (Auto) (1.20-3.40) K/uL [place] # (Auto) (0.11-0.59) K/uL Eos # (Auto) (0.00-0.50) K/uL Baso # (Auto) (0.00-0.20) K/uL Immature Gran # (Auto) (0.01-0.20) K/uL Toxic Granulation Platelet Estimate (Normal) PT INR APTT PTT Ratio Sodium 137 (136-145) mmol/L Potassium 3.4 L (3.5-5.1) mmol/L Chloride 103 (98-107) mmol/L Carbon Dioxide 24 (21-32) mmol/L Anion Gap 10 (3-11) BUN 22 (6-23) mg/dl Creatinine 0.83 (0.6-1.2) mg/dl Est Cr Clr Drug Dosing 37.5 eGFR 69.47 BUN/Creatinine Ratio 26.5 H (10-20) Glucose 172 H (70-99(Fasting)) mg/dl Lactate 1.3 (0.4-2.0) mmol/L Calcium 7.4 L (8.6-10.3) mg/dl Phosphorus 3.4 (2.5-4.9) mg/dl Magnesium (1.7-2.4) mg/dl Total Bilirubin (0.2-1.0) mg/dl AST (13-39) U/L ALT (7-52) U/L Alkaline Phosphatase (34-104) U/L Troponin I High Sens (0-14) pg/ml Total Protein (6.0-8.3) gm/dl Albumin 3.0 L (3.4-5.0) gm/dl Globulin (2.5-4.0) gm/dl Albumin/Globulin Ratio (0.9-2) Lipase (11-82) U/L Urine Color Yellow Urine Appearance Cloudy A (Clear) Urine pH 6.0 (4.5-7.5) Ur Specific [place] 1.010 (1.000-1.030) Urine Protein 1+ H (Negative) Urine Glucose (UA) Negative (Negative) Urine Ketones Negative (Negative) Urine Blood 3+ H (Negative) Urine Nitrite Negative (Negative) Urine Bilirubin Negative (Negative) Urine Urobilinogen Negative (Negative) Ur Leukocyte Esterase 3+ H (Negative) Urine RBC 3-5 H (0-2) /hpf Urine WBC >50 H (0-5) /hpf Ur Epithelial Cells 0-2 (0-2) /hpf Urine Bacteria 1+ H (None Seen) Urine Comment Blood Type A Positive Antibody Screen NEGATIVE Diagnostic Findings reviewed CXR and AP CT Medications Administered ED - Rocephin 2g IV, tylenol 1G IV, 500 ml NSS bolus ECG Additional Comments: NSR Rate 94 QTc 447 Code Status & VTE Plan Code Status dnr/dni Supervising Physician Co-Signing Physician Notes Attending addendum: I have physically seen this patient, have supervised the MARY's activities, and agree with the H&P unless as otherwise noted. Assessment and Plan: The patient is an 84-year-old female with past medical history including CVA, PMR/fibromyalgia on chronic prednisone therapy/bilateral PEs 2022 on warfarin, recurrent urinary tract infections, asthma, cerebrovascular disease, chronic venous insufficiency, and GERD. She presents to the emergency department with complaint of not feeling well for several days, left groin pain, dysuria, and increased urinary frequency. CT scan abdomen pelvis shows a distended bladder c onsistent with acute cystitis. Workup suggest sepsis with hypotension, therefore patient will admitted to monitored bed. Sepsis/hypotension due to UTI- The patient will be admitted to telemetry for cardiac rhythm monitoring and a 2- D echocardiogram with Dopplers. Follow urine culture and sensitivity Fluid boluses per septic protocol, then maintenance LR 125 mL/h x 2 L Albumin 50 g IV x 1 Stress dose prednisone as noted, presently on for PMR Holding Lasix Serial CBC with differential, chemistries If systolic blood pressure drops, and/or intolerant of fluid resuscitation, patient may need to be transferred to ICU for pressors Elevated troponin- Initial troponin 61.4 to 58.7 to 44.2 The patient will be admitted to telemetry for serial cardiac enzymes, serial EKG's, cardiac rhythm monitoring and a 2-D echocardiogram with Dopplers. Thrombocytopenia- Platelets 69 on admission with most recent 140 Temporarily hold warfarin Type and screen Secondary to sepsis Asthma exacerbation- Duonebs every 4 hours while awake and every 2 hours when necessary. COVID/flu/RSV ordered and pending Sputum culture sensitivity Taper oxygen as symptoms improve Incentive spirometry/ PG Care Time/CCT Total # of Minutes Spent Total Time Spent with Patient: Total time spent is greater than 50% in coordination of care (as documented) at patient's floor/unit and/or counseling patient: Coding Level of Care Code 03021 INT INP/OBS CARE 3/75MIN Diagnoses Acute UTI N39.0 Sepsis A41.9 Hypotension I95.9 Thrombocytopenia D69.6 Elevated troponin R79.89 Asthma exacerbation J45.901
[2025-01-30] MEDS: POLYETHYLENE (MIRALAX) 17 GM PACK PO STA (23:26)
[2025-01-30] MEDS: LACTATED RINGER'S 1,000 ML IV SCH (23:27)
[2025-01-31] MEDS ORDERED: ONDANSETRON INJ 2 MG/ML 2 ML VIAL IV PRN (00:45)
[2025-01-31] MEDS ORDERED: ALBUTEROL HFA 8 GM INHALER INH PRN (00:45)
[2025-01-31] MEDS ORDERED: DOCUSATE SODIUM 100 MG CAP PO PRN (00:45)
[2025-01-31] MEDS: ALBUT/IPRATROP 3MG/0.5MG NEB 3 ML VIAL NEB STA (02:20)
[2025-01-31 02:32] LABS: Anion Gap 10.0 (3-11); Blood Urea Nitrogen 22.0 mg/dl (6-23); Calcium 7.4 mg/dl (8.6-10.3); Carbon Dioxide 24.0 mmol/L (21-32); Chloride 103.0 mmol/L (98-107); Creatinine Clr Calc Pharmacy 37.5 ml/min; Glucose 172.0 mg/dl (70-99(Fasting)); Potassium 3.4 mmol/L (3.5-5.1); Sodium 137.0 mmol/L (136-145)
[2025-01-31] MEDS: TOPIRAMATE 50 MG TAB PO SCH (03:36)
[2025-01-31] MEDS: FAMOTIDINE 20 MG TAB PO SCH (03:38)
[2025-01-31] MEDS: GABAPENTIN 300 MG CAP PO SCH (03:38)
[2025-01-31] MEDS: DORZOLAMIDE/TIMOLOL 22.3/6.8MG/ML 10 ML BTL OPB SCH (03:39)
[2025-01-31] MEDS: FLUTICASONE/VILANTEROL 100/25MCG 14 PUFFS/INHALER INH SCH (03:39)
[2025-01-31] MEDS: ARTIFICIAL TEARS OPR SCH (03:40)
[2025-01-31] MEDS: MONTELUKAST SODIUM 10 MG TABLET PO SCH (03:42)
[2025-01-31 05:51] LABS: Influenza A virus by PCR Negative (Neg); Influenza B virus by PCR Negative (Neg); SARS CoV2 RNA(COVID-19) Ceph NEGATIVE (Negative)
[2025-01-31] MEDS: LEVOTHYROXINE SODIUM 75 MCG TABLET PO SCH (06:31)
[2025-01-31] MEDS: ALBUMIN 25% 12.5 GM/50 ML VIAL IV SCH (06:32)
[2025-01-31] MEDS: ALBUT/IPRATROP 3MG/0.5MG NEB 3 ML VIAL NEB SCH (06:53)
[2025-01-31 07:40] LABS: Hematocrit (blood only) 32.3 % (37.0-47.0); Hemoglobin 11.2 g/dl (12.0-16.0); Immature Granulocytes # (auto) 0.03 K/uL (0.01-0.20); Immature Granulocytes % (auto) 0.9 %; Mean Corpuscular Hemoglobin 32.3 pg (25.0-34.0); Mean Corpuscular Volume 93.1 fL (80.0-100.0); Platelet Count 62 K/uL (130-400); RDW Standard Deviation 58.1 fL (36.4-46.3); Red Blood Count 3.47 M/uL (4.20-5.40); White Blood Count 3.30 K/ul (4.8-10.8)
[2025-01-31 08:13] LABS: INR 1.6 (0.9-1.1); Prothrombin Time 17.0 Seconds (9.0-12.0)
--- NOTE | 2025-01-31 08:51 | Hospitalist Progress Note ---
Date of Service January 31, 2025 Assessment & Plan (1) Acute UTI: (2) Sepsis: (3) Hypotension: (4) Thrombocytopenia: (5) Elevated troponin: (6) Asthma exacerbation: Plan Patient is an 84-year-old female with past medical history of CVA, PMR/fibromyalgia on chronic prednisone therapy, bilateral PEs in 2022 on warfarin, recurrent UTIs, asthma. Patient presented due to not feeling well for several days as well as left groin pain, dysuria, and increase in urinary frequency. She was found to have cystitis and constipation on AP CT is being admitted for concern for sepsis with hypotension (BP 89/52 on admission). #Cystis/Resolved septic shock/atypical community aquired pneumonia. No consolidations noted on imaging, however patient with a cough. Will add azithromycin 500 mg PO Daily x3 Initially plan in AM was to transfer to the ICU for MAP below 65, but when I saw patient, her Blood pressure appeared improved. - UA appears positive infection with 3+ LE, >50 WBC, 1+ bacteria. AP CT favoring acute cystitis. History of recurrent UTIs growing pansensitive E. coli and pansensitive Proteus mirabilis. Note that blood pressure is typically on low at baseline. - Blood cultures ordered - however note abx given prior to labs being taken - follow urine cultures - Increase home prednisone from 5 mg daily to 20 mg daily; additional 15 Mg ordered on admission Hold Lasix with hypotension - Trend CBC #thrombocytopenia - Plt count decreased from 140 to 69. Likely 2/2 acute infection above. Hold warfarin Trend CBC - type and screen ordered Defer peripheral smear on admission as otherwise explained by acute infection #elevated troponin - trop 64.0 -> 58.7. EKG without ischemic changes. Patient endorses chronic chest pain from fibromyalgia, unchanged. Likely 2/2 demand ischemia with acute infection above. Trend troponin every 6 hours EKG with chest pain as needed Monitor on telemetry #asthma exacerbation - Patient evaluated at bedside 01/31 0230 due to increasing oxygen requirement of 5L NC. With expiratory wheezing bilaterally. Patient noted cough with yellow sputum production for several days - will treat as asthma exacerbation. Symptoms improved after duo-neb at bedside. Mag 2.0. CXR negative for acute changes on arrival to ED. Patient reports no home oxygen use however noted to have history of 2L NC HS ordered. - duo-nebs 6hr scheduled and q2hr prn - covid/flu/rsv swab ordered with recent sick contacts (grandchildren) - increased home prednisone dose as above - continue home inhalers - wean oxygen as tolerated - incentive spirometry ordered - sputum cultures ordered #constipation - AP CT showed extremely large amount of formed stool and gas throughout the colon with no dilated loops of bowel. MiraLAX daily scheduled #hyponatremia - chronic, Na 130. Appears clincally dry on admission. - holding lasix - IVF as above - trend renal panel #PMR/Fibromyalgia - follows with [facility]. - increase 5mg prednisone daily to 10mg daily - continue tramadol, Cymbalta, and trazodone #Moderate aortic and tricuspid regurgitation - follows with [facility] cardiology. - Holding Lasix with hypotension. #AYE with pulmonary HTN - reports not using home Bipap. #History of bilateral PEs in 2022. Holding warfarin as above. INR 1.8 on admission (goal 2-3). Trend INR #Migraines continue Topamax and gabapentin VTE ppx: SCDs, holding Warfarin with thrombocytopenia Dispo: PCU Admission and Anticipated Discharge Date Admission Date: January 30, 2025 Subjective Patient reports feeling better than she did overnight. SHe had an asthma attack. She reports she does not feel as weak today. Physical Exam Constitutional: WD/WN, vitals as above Respiratory: Auscultation: + wheezes Cardiovascular: RRR, no murmur, no edema Gastrointestinal (Abdomen): normal bowel sounds, soft, nontender, no hepatosplenomegaly Neurologic: PERRL, EOMI, accommodation nl, no face palsy, no dysarthria Lymphatic: no cervical or axillary lymphadenopathy Results & Data Results & Data Vital Signs (Past 12 Hours) Vital Signs Pulse Pulse Resp BP Pulse Ox Pulse Ox O2 Del Method 01/31/25 07:16 78 01/31/25 06:53 79 18 96 Oxymask 01/31/25 06:13 75 16 84/50 L 98 Oxymask 01/31/25 02:22 95 H 17 94 Oxymask 01/31/25 02:09 97 Oxymask 01/31/25 02:05 83 L Room Air 01/31/25 01:43 88 01/31/25 01:00 94 01/31/25 01:00 87 16 83/47 L 94 Room Air 01/31/25 00:00 102/56 L 01/30/25 23:33 83 16 85/52 L 99 Room Air 01/30/25 23:08 77 18 87/54 L 99 Room Air 01/30/25 22:02 82 01/30/25 21:33 83 20 86/51 L 100 Room Air 01/30/25 21:00 84 16 80/43 L 99 Room Air O2 Del Method O2 Flow Rate 01/31/25 07:16 01/31/25 06:53 4 01/31/25 06:13 4 01/31/25 02:22 5 01/31/25 02:09 6 01/31/25 02:05 01/31/25 01:43 01/31/25 01:00 Room Air 01/31/25 01:00 01/31/25 00:00 01/30/25 23:33 01/30/25 23:08 01/30/25 22:02 01/30/25 21:33 01/30/25 21:00 PG Care Time/CCT Total # of Minutes Spent Total Time Spent with Patient: Total time spent is greater than 50% in coordination of care (as documented) at patient's floor/unit and/or counseling patient: Coding Level of Care Code 53657 SUB INP/OBS CARE 3/50MIN Diagnoses Acute UTI N39.0 Sepsis A41.9 Hypotension I95.9 Thrombocytopenia D69.6 Elevated troponin R79.89 Asthma exacerbation J45.901
--- NOTE | 2025-01-31 09:51 | Electrocardiogram Report ---
Test Reason : Blood Pressure : */* mmHG Vent. Rate : 94 BPM Atrial Rate : 94 BPM P-R Int : 150 ms QRS Dur : 70 ms QT Int : 358 ms P-R-T Axes : 38 88 0 degrees QTcB Int : 447 ms Normal sinus rhythm T wave abnormality, consider inferior ischemia Abnormal ECG When compared with ECG of 25-Feb-2023 14:03, Premature atrial complexes are no longer Present T wave inversion less evident in Anterior leads Confirmed by Mark Salazar ([id number]) on 01/31/2025 9:50:39 AM Referred By: REFERRED SELF Confirmed By: Mark Salazar
[2025-01-31] MEDS: AZITHROMYCIN 250 MG TAB PO ONE (10:34)
[2025-01-31] MEDS: FEXOFENADINE HCL 180 MG TAB PO SCH (10:34)
[2025-01-31] MEDS: predniSONE 20 MG TAB PO SCH (10:34)
[2025-01-31] MEDS: POLYETHYLENE (MIRALAX) 17 GM PACK PO SCH (10:36)
[2025-01-31] MEDS: cefTRIAXone SODIUM 1,000 MG/50 ML BAG IV SCH (18:33)
[2025-01-31] MEDS: ACETAMINOPHEN 325 MG TAB PO PRN (20:04)
[2025-01-31] MEDS: LATANOPROST 0.005% OP SOLN 2.5 ML BTL OPB SCH (20:41)
[2025-02-01 08:02] LABS: Hematocrit (blood only) 33.7 % (37.0-47.0); Hemoglobin 11.1 g/dl (12.0-16.0); Immature Granulocytes # (auto) 0.04 K/uL (0.01-0.20); Immature Granulocytes % (auto) 1.3 %; Mean Corpuscular Hemoglobin 30.4 pg (25.0-34.0); Mean Corpuscular Volume 92.3 fL (80.0-100.0); Platelet Count 65 K/uL (130-400); RDW Standard Deviation 58.9 fL (36.4-46.3); Red Blood Count 3.65 M/uL (4.20-5.40); White Blood Count 3.14 K/ul (4.8-10.8)
[2025-02-01 08:30] LABS: INR 1.5 (0.9-1.1); Prothrombin Time 15.4 Seconds (9.0-12.0)
[2025-02-01] MEDS ORDERED: ENOXAPARIN 1 MG/KG SQ SCH (08:45)
[2025-02-01] MEDS: MAGNESIUM OXIDE 400 MG TAB PO SCH (09:21)
[2025-02-01] MEDS: DOCUSATE SODIUM 100 MG CAP PO SCH (09:21)
[2025-02-01] MEDS: ENOXAPARIN INJ 60 MG/0.6 ML SYR SQ SCH (09:22)
[2025-02-01] MEDS: CHOLECALCIFEROL 25 MCG (1000 UNITS) TAB PO SCH (09:23)
[2025-02-01] MEDS: MULTIVITAMIN TAB PO SCH (09:23)
[2025-02-01] MEDS: AZITHROMYCIN 250 MG TAB PO SCH (09:25)
[2025-02-01 09:43] LABS: Anion Gap 5.0 (3-11); Blood Urea Nitrogen 17.0 mg/dl (6-23); Calcium 9.2 mg/dl (8.6-10.3); Carbon Dioxide 26.0 mmol/L (21-32); Chloride 109.0 mmol/L (98-107); Creatinine Clr Calc Pharmacy 47.0 ml/min; Glucose 108.0 mg/dl (70-99(Fasting)); Potassium 3.6 mmol/L (3.5-5.1); Sodium 140.0 mmol/L (136-145)
[2025-02-01 09:59] LABS: Alanine Aminotransferase 27.0 U/L (7-52); Alkaline Phosphatase 46.0 U/L (34-104); Bilirubin,Total 0.8 mg/dl (0.2-1.0); Magnesium 2.2 mg/dl (1.7-2.4); Total Protein 5.4 gm/dl (6.0-8.3)
[2025-02-01 11:48] LABS: Chlamydia pneumoniae PCR Not Detected (NotDetected); Coronavirus 229E PCR Not Detected (NotDetected); Coronavirus CoV-2 (COVID19)PCR Not Detected (NotDetected); Coronavirus HKU1 PCR Not Detected (NotDetected); Coronavirus NL63 PCR Not Detected (NotDetected); Coronavirus OC43PCR Not Detected (NotDetected); Human Metapneumovirus PCR Not Detected (NotDetected); Parainfluenza Virus 1 PCR Not Detected (NotDetected); Parainfluenza Virus 2 PCR Not Detected (NotDetected); Parainfluenza Virus 3 PCR Not Detected (NotDetected); Parainfluenza Virus 4 PCR Not Detected (NotDetected); Respiratory Syncytial VirusPCR Not Detected (NotDetected); Rhinovirus/Enterovirus PCR DETECTED (NotDetected)
[2025-02-01] MEDS: WARFARIN SOD 2 MG TAB PO SCH (15:43)
--- NOTE | 2025-02-01 17:19 | Hospitalist Progress Note ---
Date of Service February 01, 2025 Assessment & Plan (1) Acute UTI: (2) Acute bronchitis due to Rhinovirus: (3) Sepsis: (4) Thrombocytopenia: Plan This is patient is an 84-year-old female with past medical history of CVA, PMR/fibromyalgia on chronic prednisone therapy, bilateral PEs in 2022 on warfarin as failed Xarelto previously, recurrent UTIs, asthma, hypothyroidism, fatty liver, GERD, AYE, pulmonary HTN, migraine headaches, who is admitted with sepsis with shock secondary to cystitis and relative adrenal insufficiency. Also with acute bronchitis and asthma exacerbation secondary to rhino/enterovirus. Also with severe constipation seen on CT abdomen/pelvis. #Cystitis/Resolved septic shock/Rhinovirus acute bronchitis/Asthma exacerbation- blood pressures are now improving with stress dose steroids, blood cultures remain no growth. UA abnormal and urine culture growing pansensitive E. coli. Given bronchitis and wheezing with sepsis-checked respiratory BioFire which is positive for rhino/enterovirus. CXR negative for pneumonia. Was requiring 5L NC O2 on admission and now weaned to 2L NC O2. - Continue ceftriaxone for UTI and azithromycin for bronchitis - Continue to follow blood cultures which remain no growth to date - Continue supportive care, pulmonary toilet and bronchodilators for rhino/enterovirus and asthma exacerbation - Start IV Solu-Medrol for asthma exacerbation as well as stress dose steroids- hold home prednisone - Add isolation precautions for rhinovirus - Treat constipation to help prevent future UTIs #thrombocytopenia - Plt count decreased from 140 to 62. Likely 2/2 acute infection above. Platelets have remained stable and slightly improved to 65. She has fatty liver on imaging and heterogenous spleen of unknown etiology- likely contributing to thrombocytopenia -Okay to resume anticoagulation Follow CBC #elevated troponin - trop 64.0 -> 58.7. EKG without ischemic changes. Patient endorses chronic chest pain from fibromyalgia, unchanged. Likely 2/2 demand ischemia with acute infection above. EKG with chest pain as needed Monitor on telemetry #constipation - AP CT showed extremely large amount of formed stool and gas throughout the colon with no dilated loops of bowel. Likely contributing to her recurrent UTIs increase Miralax to qid to do mini bowel prep #hyponatremia - Na+ 130 on admission and appeared dry-hydrated and now normalized - Continue holding lasix - follow BMP #PMR/Fibromyalgia - follows with [facility] Rheumatology. On chronic steroids. With low BPs here, received 20mg po daily prednisone 2 days -add IV Solu Medrol 40mg IV daily for wheezing and for stress dose steroids - continue tramadol, Cymbalta #AYE with pulmonary HTN - reports not using home Bipap. -holding home lasix #History of bilateral PEs in 2022. Warfarin held for thrombocytopenia, however platelets have been >50k and are now improving. She has a h/u bilat PEs when aC held in past for 2 days. INR now down to 1.5 -start bridging Lovenox 60mg SQ bid -restart home coumadin 2mg daily -follow INR and will ensure has close f/u with [facility] clinic after dc #Migraines continue Topamax and gabapentin VTE ppx: SCDs, Warfarin, Lovenox Dispo: PCU Admission and Anticipated Discharge Date Admission Date: January 30, 2025 Subjective Patient reports difficulty with sleeping with being on higher doses of steroids- she feels anxious and hyperactive. Requests something to help her sleep. She denies chest pain or shortness of breath but is still having a cough. She did not move her bowels at all today. She is eating and drinking. Overall feeling better today I discussed her care with her nurse. Telemetry with normal sinus rhythm with rates in the 70s to 90s and some PVCs Physical Exam Constitutional: WD/WN, vitals as above Respiratory: normal respiratory effort and + cough Auscultation: lungs clear to auscultation bilaterally and + diminished lung sounds (Throughout) Cardiovascular: Rate/Rhythm: regular rate and regular rhythm Heart Sounds: no murmur Extremities: + edema (2+ edema legs bilaterally) Gastrointestinal (Abdomen): normal bowel sounds, soft, nontender, no hepatosplenomegaly Psychiatric: A+Ox3, euthymic affect Results & Data Results & Data Vital Signs (Past 12 Hours) Vital Signs Temp Pulse Resp BP Pulse Ox O2 Del Method O2 Flow Rate 02/01/25 16:11 36.5 C 89 17 116/69 94 Nasal Cannula 2 02/01/25 14:46 82 20 92 Nasal Cannula 2 02/01/25 12:25 36.6 C 68 18 143/80 H 96 Nasal Cannula 2 02/01/25 10:16 53 L 16 94 Nasal Cannula 2 02/01/25 09:45 95 Nasal Cannula 2 02/01/25 08:00 Nasal Cannula 2 02/01/25 08:00 36.5 C 77 16 109/63 98 Nasal Cannula 4 02/01/25 07:03 77 18 99 Nasal Cannula 4 Laboratory Results CBC, BMP, urine culture, blood cultures, INR reviewed PG Care Time/CCT Total # of Minutes Spent Total Time Spent with Patient: Total time spent is greater than 50% in coordination of care (as documented) at patient's floor/unit and/or counseling patient: Coding Level of Care Code 92462 SUB INP/OBS CARE 3/50MIN Diagnoses Acute UTI N39.0 Acute bronchitis due to Rhinovirus J20.6 Sepsis A41.9 Thrombocytopenia D69.6
[2025-02-01] MEDS: POLYETHYLENE (MIRALAX) 17 GM PACK PO SCH (19:43)
[2025-02-02 07:09] LABS: Hematocrit (blood only) 32.8 % (37.0-47.0); Hemoglobin 10.8 g/dl (12.0-16.0); Mean Corpuscular Hemoglobin 31.0 pg (25.0-34.0); Mean Corpuscular Volume 94.3 fL (80.0-100.0); Platelet Count 69 K/uL (130-400); RDW Standard Deviation 59.8 fL (36.4-46.3); Red Blood Count 3.48 M/uL (4.20-5.40); White Blood Count 2.59 K/ul (4.8-10.8)
[2025-02-02 07:29] LABS: Anion Gap 6.0 (3-11); Blood Urea Nitrogen 15.0 mg/dl (6-23); Calcium 8.4 mg/dl (8.6-10.3); Carbon Dioxide 27.0 mmol/L (21-32); Chloride 106.0 mmol/L (98-107); Creatinine Clr Calc Pharmacy 43.7 ml/min; Glucose 120.0 mg/dl (70-99(Fasting)); Potassium 4.0 mmol/L (3.5-5.1); Sodium 139.0 mmol/L (136-145)
[2025-02-02 07:30] LABS: INR 1.4 (0.9-1.1); Prothrombin Time 14.6 Seconds (9.0-12.0)
--- NOTE | 2025-02-02 14:16 | Hospitalist Progress Note ---
Date of Service February 02, 2025 Assessment & Plan (1) Acute UTI: (2) Acute bronchitis due to Rhinovirus: (3) Sepsis: (4) Thrombocytopenia: Plan This is patient is an 84-year-old female with past medical history of CVA, PMR/fibromyalgia on chronic prednisone therapy, bilateral PEs in 2022 on warfarin as failed Xarelto previously, recurrent UTIs, asthma, hypothyroidism, fatty liver, GERD, AYE, pulmonary HTN, migraine headaches, who is admitted with sepsis with shock secondary to cystitis and relative adrenal insufficiency. Also with acute bronchitis and asthma exacerbation secondary to rhino/enterovirus. Also with severe constipation seen on CT abdomen/pelvis. #Cystitis/Resolved septic shock/Rhinovirus acute bronchitis/Asthma exacerbation- blood pressures are now improving with stress dose steroids, blood cultures remain no growth. UA abnormal and urine culture growing pansensitive E. coli. Given bronchitis and wheezing with sepsis-checked respiratory BioFire which is positive for rhino/enterovirus. CXR negative for pneumonia. Was requiring 5L NC O2 on admission and now weaned to 2L NC O2. - Continue ceftriaxone for UTI x 7 days and azithromycin 500mg po daily for bronchitis now completed 3 day course - Continue to follow blood cultures which remain no growth to date - Continue supportive care, pulmonary toilet and bronchodilators for rhino/enterovirus and asthma exacerbation - Continue IV Solu-Medrol for asthma exacerbation as well as stress dose steroids-holding home prednisone - Continue isolation precautions for rhinovirus - Continue to treat constipation to help prevent future UTIs -wean off O2 as able to keep POx> 90% #Thrombocytopenia - Plt count decreased from 140 to 62. Likely 2/2 acute infection above. Platelets have remained stable and slightly improved to 69. She has fatty liver on imaging and heterogenous spleen of unknown etiology- likely contributing to thrombocytopenia -resumed anticoagulation Follow CBC #elevated troponin - trop 64.0 -> 58.7. EKG without ischemic changes. Patient endorses chronic chest pain from fibromyalgia, unchanged. Likely 2/2 demand ischemia with acute infection above. EKG with chest pain as needed Monitor on telemetry #constipation - AP CT showed extremely large amount of formed stool and gas throughout the colon with no dilated loops of bowel. Likely contributing to her recurrent UTIs. Had 2 BMs on 01/31 but none sine then despite taking miralax qid continue Miralax qid -add sennakot, docusate, and MOM x 1 #hyponatremia - Na+ 130 on admission and appeared dry-hydrated and now normalized - resume home lasix as peripheral edema worsening - follow BMP #PMR/Fibromyalgia - follows with [facility]. On chronic steroids. With low BPs here, received 20mg po daily prednisone 2 days -added IV Solu Medrol 40mg IV daily for wheezing and for stress dose steroids on 02/01-continue - continue tramadol, Cymbalta #AYE with pulmonary HTN - reports not using home Bipap. -resume home lasix #History of bilateral PEs in 2022. Warfarin held for thrombocytopenia, however platelets have been >50k and are now improving. She has a h/o bilat PEs when AC held in past for 2 days. INR now down to 1.4 -started bridging Lovenox 60mg SQ bid on 02/01-continue -restarted home coumadin 2mg daily on 02/01--> continue same dose as she is on antibiotics and steroids which could cause INR to rise rapidly -follow INR and will ensure has close f/u with [facility] clinic after dc #Migraines continue Topamax and gabapentin VTE ppx: SCDs, Warfarin, Lovenox Dispo: continued stay on PCU, ordered PT/OT consults to assess if needs rehab stay after dc Admission and Anticipated Discharge Date Admission Date: January 30, 2025 Subjective Has a bad cough. No BM in 2 days despite drinking miralax -it makes her feel full and she can't drink it all. Is feeling strong and independently ambulating in room. Tele with NSR, PACs, rates 60-90s Physical Exam Constitutional: WD/WN, vitals as above Respiratory: normal respiratory effort and + cough Auscultation: lungs clear to auscultation bilaterally and + diminished lung sounds (Throughout) Cardiovascular: Rate/Rhythm: regular rate and regular rhythm Heart Sounds: no murmur Extremities: + edema (2+ edema legs bilaterally) Gastrointestinal (Abdomen): normal bowel sounds, soft, nontender, no hepatosplenomegaly Psychiatric: A+Ox3, euthymic affect Results & Data Results & Data Vital Signs (Past 12 Hours) Vital Signs Temp Pulse Resp BP Pulse Ox O2 Del Method O2 Flow Rate 02/02/25 11:08 36.2 C L 52 L 20 119/65 90 Nasal Cannula 2 02/02/25 11:06 26 H 86 L Room Air 02/02/25 09:00 Nasal Cannula 2 02/02/25 07:29 74 16 100 Nasal Cannula 2 02/02/25 07:20 36.6 C 75 19 95/53 L 97 Room Air 02/02/25 03:09 36.4 C L 75 18 96/56 L 91 Nasal Cannula 2 Laboratory Results CBC, BMP, INR, blood cxs reviewed PG Care Time/CCT Total # of Minutes Spent Total Time Spent with Patient: Total time spent is greater than 50% in coordination of care (as documented) at patient's floor/unit and/or counseling patient: Coding Level of Care Code 71251 SUB INP/OBS CARE 235MIN Diagnoses Acute UTI N39.0 Acute bronchitis due to Rhinovirus J20.6 Sepsis A41.9 Thrombocytopenia D69.6
[2025-02-02] MEDS: MAGNESIUM HYDROXIDE SUSP 30 ML UDC PO ONE (14:24)
[2025-02-02] MEDS: SENNA 8.6 MG TAB PO SCH (14:24)
[2025-02-02] MEDS: FUROSEMIDE 20 MG TAB PO SCH (15:48)
[2025-02-03 07:29] LABS: Alanine Aminotransferase 29.0 U/L (7-52); Albumin Globulin Ratio 1.6 (0.9-2); Alkaline Phosphatase 52.0 U/L (34-104); Anion Gap 6.0 (3-11); Bilirubin,Total 0.8 mg/dl (0.2-1.0); Blood Urea Nitrogen 13.0 mg/dl (6-23); Calcium 8.5 mg/dl (8.6-10.3); Carbon Dioxide 29.0 mmol/L (21-32); Chloride 103.0 mmol/L (98-107); Creatinine Clr Calc Pharmacy 40.8 ml/min; Globulin 2.1 gm/dl (2.5-4.0); Glucose 114.0 mg/dl (70-99(Fasting)); Magnesium 2.3 mg/dl (1.7-2.4); Potassium 4.2 mmol/L (3.5-5.1); Sodium 138.0 mmol/L (136-145); Total Protein 5.5 gm/dl (6.0-8.3)
[2025-02-03 07:42] LABS: INR 1.5 (0.9-1.1); Prothrombin Time 16.0 Seconds (9.0-12.0)
--- NOTE | 2025-02-03 08:10 | Hospitalist Progress Note ---
Date of Service February 03, 2025 Assessment & Plan (1) Acute UTI: (2) Acute bronchitis due to Rhinovirus: (3) Sepsis: (4) Thrombocytopenia: Plan This is patient is an 84-year-old female with past medical history of CVA, PMR/fibromyalgia on chronic prednisone therapy, bilateral PEs in 2022 on warfarin as failed Xarelto previously, recurrent UTIs, asthma, hypothyroidism, fatty liver, GERD, AYE, pulmonary HTN, migraine headaches, who is admitted with sepsis with shock secondary to cystitis and relative adrenal insufficiency. Also with acute bronchitis and asthma exacerbation secondary to rhino/enterovirus. Also with severe constipation seen on CT abdomen/pelvis. #Cystitis/Resolved septic shock/Rhinovirus acute bronchitis/Asthma exacerbation -blood pressures are now improving with stress dose steroids, blood cultures remain no growth. - UA abnormal and urine culture growing pansensitive E. coli. - BioFire which is positive for rhino/enterovirus. CXR negative for pneumonia. Was requiring 5L NC O2 on admission and now weaned to 2L NC O2. Home requirements of 2 L at night - Continue ceftriaxone for UTI x 7 day To be complete 02/06 and azithromycin 500mg po daily for bronchitis now completed 3 day course - Continue to follow blood cultures which remain no growth to date - Continue supportive care, pulmonary toilet and bronchodilators for rhino/enterovirus and asthma exacerbation - Continue IV Solu-Medrol for asthma exacerbation as well as stress dose steroids-holding home prednisone - Continue isolation precautions for rhinovirus - Continue to treat constipation to help prevent future UTIs -wean off O2 as able to keep POx> 90% Recommend continued inpatient management at this time. She continues to have a increased oxygen requirement compared to her baseline, and although her blood pressures run low still has some relative hypotension on steroids recently weaned from twice daily. Additionally is not having adequate bowel movements, and bowel regimen discontinued. #Thrombocytopenia - Likely 2/2 acute infection above. Platelets have remained stable and slightly improved to 69. She has fatty liver on imaging and heterogenous spleen of unknown etiology-likely contributing to thrombocytopenia -resumed anticoagulation Follow CBC Platelet count uptrending, 78K on 02/03. Hemoglobin also uptrending with anticoagulation resumed #elevated troponin - trop 64.0 -> 58.7. EKG without ischemic changes. Patient endorses chronic chest pain from fibromyalgia, unchanged. Likely also with demand ischemia with acute infection above. EKG with chest pain as needed Monitor on telemetry #constipation - AP CT showed extremely large amount of formed stool and gas throughout the colon with no dilated loops of bowel. Likely contributing to her recurrent UTIs. Had 2 BMs on 01/31 but none sine then despite taking miralax qid continue Miralax qid - Continue sennakot, docusate. Milk of magnesia as needed She has some small slightly liquid bowel movements suspect that these are overflow diarrhea, would continue bowel regimen as ordered. Up to chair as tolerated #hyponatremia - Na+ 130 on admission and appeared dry-hydrated and now improved - Continue home Lasix, creatinine remains at baseline - follow BMP #PMR/Fibromyalgia - follows with [facility] Rheumatology. On chronic steroids. With low BPs here, received 20mg po daily prednisone 2 days -added IV Solu Medrol 40mg IV daily for wheezing and for stress dose steroids on 02/01-continue - continue tramadol, Cymbalta Clinically progressing #AYE with pulmonary HTN - reports not using home Bipap. - continue #History of bilateral PEs in 2022. Warfarin held for thrombocytopenia, however platelets have been >50k and are now improving. She has a h/o bilat PEs when AC held in past for 2 days. INR now down to 1.4 -started bridging Lovenox 60mg SQ bid on 02/01-continue -restarted home coumadin 2mg daily on 02/01--> continue same dose as she is on antibiotics and steroids which could cause INR to rise rapidly -follow INR daily Continue warfarin, INR on 02/03 rising at 1.5 #Migraines continue Topamax and gabapentin VTE ppx: SCDs, Warfarin, Lovenox Dispo: continued stay on PCU. PT/OT pending Admission and Anticipated Discharge Date Admission Date: January 30, 2025 Subjective Routinely seen at the bedside. She is not had a very large bowel movement, has continued to have relatively small mostly liquid to slightly loose bowel movements since being here. She feels comfortable and not short of breath at time of visit, although notes she is not on oxygen at home. Continues to have a dry cough which is mostly nonproductive. Denies fevers or chills. She has been able to ambulate to the bathroom within her room independently. She feels that she is progressing and getting better, her most distressing symptom continues to be her cough. She notes her blood pressure in the 90s this morning is not usual for her, her blood pressure does tend to run a little lower but is usually around the low 100s to 115 range. Physical Exam Physical Exam: General: A&Ox3. NAD. Cooperative. HEENT: Atraumatic, normocephalic. Vision and hearing grossly intact Pulm: Managed and coughs intermittently during exam, grossly clear with no wheezes rales or rhonchi symmetrical chest rise. No increase in work of breathing. No respiratory distress. Cardiac: RRR, -mrg. Radial pulses intact and symmetrical. Abdominal: Nontender, nondistended, soft. BS present. Extremities: Mild lower extremity edema bilaterally without asymmetry Results & Data Results & Data Vital Signs (Past 12 Hours) Vital Signs Temp Pulse Pulse Resp BP BP Pulse Ox 02/03/25 07:28 68 15 95 02/03/25 07:12 36.6 C 72 19 98/61 L 99 02/03/25 03:30 36.9 C 60 14 93/59 L 94 02/02/25 22:25 37.0 C 72 16 92/55 L 96 02/02/25 21:59 85 O2 Del Method O2 Flow Rate 02/03/25 07:28 Nasal Cannula 2 02/03/25 07:12 Nasal Cannula 2 02/03/25 03:30 Room Air 02/02/25 22:25 Nasal Cannula 2 02/02/25 21:59 PG Care Time/CCT Total # of Minutes Spent Total Time Spent with Patient: Total time spent is greater than 50% in coordination of care (as documented) at patient's floor/unit and/or counseling patient: Coding Level of Care Code 48894 SUB INP/OBS CARE 3/50MIN Diagnoses Acute UTI N39.0 Acute bronchitis due to Rhinovirus J20.6 Sepsis A41.9 Thrombocytopenia D69.6
[2025-02-03] MEDS: BENZONATATE 100 MG CAPSULE PO PRN (09:45)
[2025-02-03 11:51] LABS: Hematocrit (blood only) 36.6 % (37.0-47.0); Hemoglobin 11.9 g/dl (12.0-16.0); Immature Granulocytes # (auto) 0.03 K/uL (0.01-0.20); Immature Granulocytes % (auto) 0.8 %; Mean Corpuscular Hemoglobin 30.8 pg (25.0-34.0); Mean Corpuscular Volume 94.8 fL (80.0-100.0); Platelet Count 78 K/uL (130-400); RDW Standard Deviation 61.2 fL (36.4-46.3); Red Blood Count 3.86 M/uL (4.20-5.40); White Blood Count 3.75 K/ul (4.8-10.8)
[2025-02-03] MEDS ORDERED: ALBUT/IPRATROP 3MG/0.5MG NEB 3 ML VIAL NEB PRN (12:26)
[2025-02-03] MEDS: ALBUT/IPRATROP 3MG/0.5MG NEB 3 ML VIAL NEB PRN (16:03)
[2025-02-03] MEDS: MELATONIN 3 MG TAB PO PRN (20:26)
[2025-02-04 06:31] LABS: Hematocrit (blood only) 30.9 % (37.0-47.0); Hemoglobin 10.9 g/dl (12.0-16.0); Immature Granulocytes # (auto) 0.05 K/uL (0.01-0.20); Immature Granulocytes % (auto) 2.2 %; Mean Corpuscular Hemoglobin 32.9 pg (25.0-34.0); Mean Corpuscular Volume 93.4 fL (80.0-100.0); Platelet Count 72 K/uL (130-400); RDW Standard Deviation 58.5 fL (36.4-46.3); Red Blood Count 3.31 M/uL (4.20-5.40); White Blood Count 2.26 K/ul (4.8-10.8)
[2025-02-04 06:55] LABS: Anion Gap 5.0 (3-11); Blood Urea Nitrogen 13.0 mg/dl (6-23); Calcium 8.3 mg/dl (8.6-10.3); Carbon Dioxide 29.0 mmol/L (21-32); Chloride 99.0 mmol/L (98-107); Creatinine Clr Calc Pharmacy 41.9 ml/min; Glucose 117.0 mg/dl (70-99(Fasting)); Potassium 4.3 mmol/L (3.5-5.1); Sodium 133.0 mmol/L (136-145)
[2025-02-04 06:56] LABS: INR 1.9 (0.9-1.1); Prothrombin Time 19.8 Seconds (9.0-12.0)
[2025-02-04] MEDS: HYDROCORTISONE SOD 50 MG in SYRINGE 0 ML IV SCH (10:38)
[2025-02-04] MEDS: PLASMA-LYTE A 1,000 ML IV SCH (10:39)
--- NOTE | 2025-02-04 12:20 | Hospitalist Progress Note ---
Date of Service February 04, 2025 Assessment & Plan (1) Acute UTI: (2) Acute bronchitis due to Rhinovirus: (3) Sepsis: (4) Thrombocytopenia: Plan This is patient is an 84-year-old female with past medical history of CVA, PMR/fibromyalgia on chronic prednisone therapy, bilateral PEs in 2022 on warfarin as failed Xarelto previously, recurrent UTIs, asthma, hypothyroidism, fatty liver, GERD, AYE, pulmonary HTN, migraine headaches, who is admitted with sepsis with shock secondary to cystitis and relative adrenal insufficiency. Also with acute bronchitis and asthma exacerbation secondary to rhino/enterovirus. Also with severe constipation seen on CT abdomen/pelvis. #Cystitis/Resolved septic shock/Rhinovirus acute bronchitis/Asthma exacerbation Blood pressures slightly lower 02/04 and had not really risen back to her baseline after initial improvement following methylprednisolone. She does have a history of adrenal insufficiency and suppressed cortisol in the past Hydrocortisone added for adjunct mineralocorticoid effect - UA abnormal and urine culture growing pansensitive E. coli. - BioFire which is positive for rhino/enterovirus. CXR negative for pneumonia. Was requiring 5L NC O2 on admission and now weaned to 2L NC O2. Home re quirements of 2 L at night - Continue ceftriaxone for UTI x 7 day To be complete 02/06 and azithromycin 500mg po daily for bronchitis now completed 3 day course - Continue to follow blood cultures which remain no growth to date - Continue supportive care, pulmonary toilet and bronchodilators for rhino/enterovirus and asthma exacerbation - Continue isolation precautions for rhinovirus -wean off O2 as able to keep POx> 90% Blood pressure is not adequate today, added hydrocortisone as noted. Subsequently with significant rise in blood pressure to 106/67. Suspect underlying adrenal insufficiency and mineralocorticoid deficit. Her wheezing has improved and clinically BP appears to be responding to hydrocortisone. Given this we will trial a transition to a short course of hydrocortisone and down titrate her methylprednisolone. Requires ongoing hospitalization both for acute management, and has not returned to her oxygenation based #Thrombocytopenia - Likely 2/2 acute infection above. Platelets have remained stable and slightly improved to 69. She has fatty liver on imaging and heterogenous spleen of unknown etiology-likely contributing to thrombocytopenia -resumed anticoagulation Platelet count stable #elevated troponin - trop 64.0 -> 58.7. EKG without ischemic changes. Patient endorses chronic chest pain from fibromyalgia, unchanged. Likely also with demand ischemia with acute infection above. EKG with chest pain as needed Monitor on telemetry #constipation - AP CT showed extremely large amount of formed stool and gas throughout the colon with no dilated loops of bowel. Likely contributing to her recurrent UTIs. Had 2 BMs on 01/31 but none sine then despite taking miralax qid continue Miralax qid - Continue sennakot, docusate. Milk of magnesia as needed She has some small slightly liquid bowel movements suspect that these are overflow diarrhea, would continue bowel regimen as ordered. Up to chair as tolerated #hyponatremia - Na+ 130 on admission and appeared dry-hydrated and now improving - Continue home Lasix, creatinine remains at baseline - follow BMP #PMR/Fibromyalgia - follows with [facility]. On chronic steroids. 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 - continue #History of bilateral PEs in 2022. Warfarin held for thrombocytopenia, however platelets have been >50k and stable. - She has a h/o bilat PEs when AC held in past for 2 days. INR now down to 1.4 -started bridging Lovenox 60mg SQ bid on 02/01-continue -restarted home coumadin 2mg daily on 02/01--> continue same dose as she is on antibiotics and steroids which could cause INR to rise rapidly -follow INR daily Continue warfarin, near INR goal 02/04. Hopefully therapeutic 02/05. #Migraines continue Topamax and gabapentin VTE ppx: -SCDs, Warfarin, Lovenox Dispo: -continued stay on PCU. - PT/OT: hopeful for HHPT when medically ready for d/c Admission and Anticipated Discharge Date Admission Date: January 30, 2025 Roland Esteban is seen at the bedside. She continues to have a dry cough which is the most bothersome to her, however notes that this is a little less than yesterday and thinks the Tessalon Perles are helping a little bit. No lightheadedness or dizziness, but blood pressure remains lower than typical for her. She reports she feels a little bit tired, but overall better than she had been. Denies chest pain or chest pressure No shortness of breath at rest Has not yet been up and out of bed at time of morning assessed Physical Exam Physical Exam: General: A&Ox3. NAD. Cooperative. HEENT: Atraumatic, normocephalic. Vision and hearing grossly intact Pulm: Intermittent dry cough on exam, grossly clear with no wheezes rales or rhonchi symmetrical chest rise. No increase in work of breathing. No respiratory distress. Cardiac: RRR, -mrg. Radial pulses intact and symmetrical. Abdominal: Nontender, nondistended, soft. BS present. Extremities: Mild lower extremity edema bilaterally without asymmetry Results & Data Results & Data Vital Signs (Past 12 Hours) Vital Signs Temp Pulse Pulse Resp BP BP Pulse Ox 02/04/25 11:49 36.3 C L 67 18 106/67 97 02/04/25 09:00 60 02/04/25 09:00 02/04/25 08:07 36.7 C 74 18 89/52 L 94 02/04/25 03:22 36.2 C L 64 16 98/59 L 94 O2 Del Method O2 Flow Rate 02/04/25 11:49 Nasal Cannula 2 02/04/25 09:00 02/04/25 09:00 Nasal Cannula 2 02/04/25 08:07 Nasal Cannula 2 02/04/25 03:22 Nasal Cannula 2 PG Care Time/CCT Total # of Minutes Spent Total Time Spent with Patient: Total time spent is greater than 50% in coordination of care (as documented) at patient's floor/unit and/or counseling patient: Coding Level of Care Code 32616 SUB INP/OBS CARE 3/50MIN Diagnoses Acute UTI N39.0 Acute bronchitis due to Rhinovirus J20.6 Sepsis A41.9 Thrombocytopenia D69.6
--- NOTE | 2025-02-04 19:26 | XRay Report ---
Exam: Chest 2 view PA/lateral. Reason for exam: Serial x-ray, hypoxia. Previous studies: Chest x-ray 01/30/2025 FINDINGS: Cardiac size remains normal. Small bilateral pleural effusions have developed since the previous study. Otherwise lungs remain free of acute infiltrate or edema. IMPRESSION: Development of small bilateral pleural effusions. Otherwise no acute change since the previous study. Electronically signed by Brenden Hawkins 02-04-2025 7:25 PM
--- NOTE | 2025-02-05 07:39 | Hospitalist Progress Note ---
Date of Service February 05, 2025 Assessment & Plan (1) Acute UTI: (2) Acute bronchitis due to Rhinovirus: (3) Sepsis: (4) Thrombocytopenia: Plan This is patient is an 84-year-old female with past medical history of CVA, PMR/fibromyalgia on chronic prednisone therapy, bilateral PEs in 2022 on warfarin as failed Xarelto previously, recurrent UTIs, asthma, hypothyroidism, fatty liver, GERD, AYE, pulmonary HTN, migraine headaches, who is admitted with sepsis with shock secondary to cystitis and relative adrenal insufficiency. Also with acute bronchitis and asthma exacerbation secondary to rhino/enterovirus. Also with severe constipation seen on CT abdomen/pelvis. #Cystitis/Resolved septic shock/Rhinovirus acute bronchitis/Asthma exacerbation Blood pressures slightly lower 02/04 and had not really risen back to her baseline after initial improvement following methylprednisolone. She does have a history of adrenal insufficiency and suppressed cortisol in the past Hydrocortisone added for adjunct mineralocorticoid effect - UA abnormal and urine culture growing pansensitive E. coli. - BioFire which is positive for rhino/enterovirus. CXR negative for pneumonia. Was requiring 5L NC O2 on admission and now weaned to 2L NC O2. Home re quirements of 2 L at night - Continue ceftriaxone for UTI x 7 day. To be complete 02/06 and azithromycin 500mg po daily for bronchitis now completed 3 day course - Continue supportive care, pulmonary toilet and bronchodilators for rhino/enterovirus and asthma exacerbation - Continue isolation precautions for rhinovirus -wean off O2 as able to keep POx> 90% Longstanding history of steroid use + underlying adrenal insufficiency. Had inadequate blood pressures despite being euvolemic to slightly hypervolemic while on methylprednisolone for asthma exacerbation. She did have blood pressure improvement with adjunct hydrocortisone. This is continued, Methylpred down titrated. Interval x-ray shows development of small pleural effusions, no evidence of secondary pneumonia, and she has a slight increase in her oxygen requirement. Blood pressures improved. Will switch daily p.o. Lasix 20mg to Lasix 20 mg IV, follow renal function and blood pressures. Titrate to goal net negative around 1 L/day. Cough is improving. Hopefully with IV diuresis oxygenation will improve and she near convalescent from her viral illness. Overall improved today, hopefully within goal for discharge within the next 1-2 days Continue PT/OT while inpatient #Thrombocytopenia - Likely 2/2 acute infection above. Platelets have remained stable and slightly improved to 69. She has fatty liver on imaging and heterogenous spleen of unknown etiology-likely contributing to thrombocytopenia -resumed anticoagulation Platelet count stable #elevated troponin, demand ischemia. - trop 64.0 -> 58.7. - EKG without ischemic changes. Patient endorses chronic chest pain from fibromyalgia, unchanged. Likely also with demand ischemia with acute infection above. #constipation - AP CT showed extremely large amount of formed stool and gas throughout the colon with no dilated loops of bowel. Likely contributing to her recurrent UTIs. Had 2 BMs on 01/31 but none sine then despite taking miralax qid continue Miralax - Continue sennakot, docusate. Milk of magnesia as needed Continue bowel regimen #hyponatremia - Na+ 130 on admission and appeared dry-hydrated and improved Slight increase in pleural effusions, suspect slightly hypervolemic 02/05 with a 1 L increase in oxygen requirement, switch to Lasix IV - follow BMP #PMR/Fibromyalgia - follows with [facility]. On chronic steroids. 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 - continue #History of bilateral PEs in 2022. Warfarin held for thrombocytopenia, however platelets have been >50k and stable. - She has a h/o bilat PEs when AC held in past for 2 days -started bridging Lovenox 60mg SQ bid on 02/01-continue until INR therapeutic -restarted home coumadin 2mg daily on 02/01--> continued same dose as she is on antibiotics and steroids which could cause INR to rise rapidly -INR 01/23 1.8 #Migraines continue Topamax and gabapentin VTE ppx: Anticoagulated Dispo: - PT/OT: hopeful for HHPT when medically ready for d/c Admission and Anticipated Discharge Date Admission Date: January 30, 2025 Subjective Cougha bout the same today. Tessalon seems to help. +slight orthopnea. No dyspnea sitting up at rest. No chest pain Legs a little more swollen No fevers, chills No abdominal pain Offered to call/update pt family/granddaughter pt defers. Physical Exam Physical Exam: General: A&Ox3. NAD. Cooperative. HEENT: Atraumatic, normocephalic. Vision and hearing grossly intact Pulm: Diminished in the bases, intermittent dry cough on exam, grossly clear with no wheezes rales or rhonchi Cardiac: RRR, -mrg. Radial pulses intact and symmetrical. Abdominal: Nontender, nondistended, soft. BS present. Extremities: +lower extremity edema bilaterally without asymmetry Results & Data Results & Data Vital Signs (Past 12 Hours) Vital Signs Temp Pulse Pulse Resp BP Pulse Ox O2 Del Method 02/05/25 02:00 36.3 C L 65 16 103/64 94 Nasal Cannula 02/04/25 23:00 36.6 C 75 18 96/61 L 94 Nasal Cannula 02/04/25 22:18 36.6 C 69 20 94/62 L 94 Nasal Cannula 02/04/25 21:42 69 O2 Flow Rate 02/05/25 02:00 3 02/04/25 23:00 3 02/04/25 22:18 3 02/04/25 21:42 PG Care Time/CCT Total # of Minutes Spent Total Time Spent with Patient: Total time spent is greater than 50% in coordination of care (as documented) at patient's floor/unit and/or counseling patient: Coding Level of Care Code 12104 SUB INP/OBS CARE 3/50MIN Diagnoses Acute UTI N39.0 Acute bronchitis due to Rhinovirus J20.6 Sepsis A41.9 Thrombocytopenia D69.6
[2025-02-05 08:03] LABS: Hematocrit (blood only) 29.6 % (37.0-47.0); Hemoglobin 9.8 g/dl (12.0-16.0); Immature Granulocytes # (auto) 0.03 K/uL (0.01-0.20); Immature Granulocytes % (auto) 1.6 %; Mean Corpuscular Hemoglobin 31.2 pg (25.0-34.0); Mean Corpuscular Volume 94.3 fL (80.0-100.0); Platelet Count 85 K/uL (130-400); RDW Standard Deviation 59.5 fL (36.4-46.3); Red Blood Count 3.14 M/uL (4.20-5.40); White Blood Count 1.84 K/ul (4.8-10.8)
[2025-02-05 08:05] LABS: INR 1.8 (0.9-1.1); Prothrombin Time 19.0 Seconds (9.0-12.0)
[2025-02-05 08:43] LABS: Anion Gap 4.0 (3-11); Blood Urea Nitrogen 12.0 mg/dl (6-23); Calcium 7.7 mg/dl (8.6-10.3); Carbon Dioxide 28.0 mmol/L (21-32); Chloride 102.0 mmol/L (98-107); Creatinine Clr Calc Pharmacy 48.7 ml/min; Glucose 160.0 mg/dl (70-99(Fasting)); Potassium 3.8 mmol/L (3.5-5.1); Sodium 134.0 mmol/L (136-145)
[2025-02-05] MEDS: predniSONE 20 MG TAB PO SCH (10:03)
[2025-02-05] MEDS: FUROSEMIDE INJ 20 MG/2 ML VIAL IV SCH (10:15)
[2025-02-06 06:44] LABS: Hematocrit (blood only) 28.9 % (37.0-47.0); Hemoglobin 9.6 g/dl (12.0-16.0); Immature Granulocytes # (auto) 0.07 K/uL (0.01-0.20); Immature Granulocytes % (auto) 3.2 %; Mean Corpuscular Hemoglobin 31.4 pg (25.0-34.0); Mean Corpuscular Volume 94.4 fL (80.0-100.0); Platelet Count 83 K/uL (130-400); RDW Standard Deviation 59.1 fL (36.4-46.3); Red Blood Count 3.06 M/uL (4.20-5.40); White Blood Count 2.20 K/ul (4.8-10.8)
[2025-02-06 06:57] LABS: Anion Gap 4.0 (3-11); Blood Urea Nitrogen 11.0 mg/dl (6-23); Calcium 7.8 mg/dl (8.6-10.3); Carbon Dioxide 29.0 mmol/L (21-32); Chloride 103.0 mmol/L (98-107); Creatinine Clr Calc Pharmacy 49.1 ml/min; Glucose 186.0 mg/dl (70-99(Fasting)); Potassium 3.6 mmol/L (3.5-5.1); Sodium 136.0 mmol/L (136-145)
[2025-02-06 07:04] LABS: INR 2.2 (0.9-1.1); Prothrombin Time 22.4 Seconds (9.0-12.0)
--- NOTE | 2025-02-06 09:30 | Hospitalist Progress Note ---
Date of Service February 06, 2025 Assessment & Plan (1) Acute UTI: Plan: -resolved -completed 7 day course of rocephin (2) Acute bronchitis due to Rhinovirus: Plan: -zithromax completed 3 days -supportive care -Yovani Isidro (3) Sepsis: Plan: -resolved (4) Thrombocytopenia: Plan: - Likely 2/2 acute infection above. Platelets have remained stable and slightly improved to 69. She has fatty liver on imaging and heterogenous spleen of unknown etiology-likely contributing to thrombocytopenia -resumed anticoagulation Platelet count stable (5) History of pulmonary embolus (PE): Plan: -coumadin (6) Fibromyalgia: Plan: follows with [facility]. On chronic steroids. 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 Also with acute bronchitis and asthma exacerbation secondary to rhino/enterovirus. Also with severe constipation seen on CT abdomen/pelvis. Dispo: - Home Health with PT, planned for 02/07 Admission and Anticipated Discharge Date Admission Date: January 30, 2025 Subjective Pt states she still experience cough, feels that she will be ready to go home tomorrow. Review of Systems Review of Systems: CONST: Negative for fever, body aches and chills. HENT: Negative for neck pain/stiffness, headache, congestion, sore throat, swelling. EYES: Negative for discharge/pain or vision changes. RESP: Negative for cough/hemoptysis and shortness of breath. CV: Negative chest pain, difficulty breathing, palpitations. ABD: Negative pain, nausea, vomiting. : Negative increase frequency, dysuria, blood in urine or stool. MUSC: Negative for muscle aches, edema. SKIN: Negative rash, lesions/sores. NEURO: Negative headache, dizziness, weakness. Physical Exam Physical Exam: GENERAL APPEARANCE NAD, activity normal for age, well developed/ well nourished, no cyanosis, pallor, or diaphoresis. EYES lids/conjunctiva normal. EARS/NOSE/THROAT Mucous membranes moist, nares normal, lips/teeth normal uvula midline without oral pharyngeal erythema, exudate or swelling TMs normal bilaterally. No lymphangitis/lymphedema. HEAD/NECK normocephalic atraumatic, no facial trauma, neck is supple. RESPIRATORY respiratory effort normal, speaks in full sentences, no tripod position, no accessory muscle use. Lungs clear to auscultation without rhonchi, wheezes, rales CARDIAC Regular rate and rhythm, no edema. ABDOMINAL Soft, ND/NT. No evidence of fluid wave. No pulsatile masses on exam, rebound tenderness, Hernandez sign or pain over Mcburney's point. MUSCLES/EXTREMITIES No abnormal range of motion, no swelling. SKIN Warm, pink and dry. No rashes, dermatoses, petechiae or lesions. NEUROLOGICAL Speech is clear and appropriate. Normal level of consciousness. Gait and coordination are normal. 5/5 strength in all extremities. PSYCH Normal mood and affect. Judgement/competence is appropriate Results & Data Results & Data Vital Signs (Past 12 Hours) Vital Signs Temp Pulse Pulse Resp BP Pulse Ox O2 Del Method 02/06/25 08:32 75 02/06/25 07:58 Nasal Cannula 02/06/25 07:00 36.8 C 70 16 102/67 91 Nasal Cannula 02/06/25 03:32 36.7 C 71 18 102/61 92 Nasal Cannula 02/05/25 23:34 36.6 C 70 18 92/58 L 94 Nasal Cannula 02/05/25 22:00 72 O2 Flow Rate 02/06/25 08:32 02/06/25 07:58 2 02/06/25 07:00 02/06/25 03:32 02/05/25 23:34 02/05/25 22:00 PG Care Time/CCT Total # of Minutes Spent Total Time Spent with Patient: Total time spent is greater than 50% in coordination of care (as documented) at patient's floor/unit and/or counseling patient: Coding Level of Care Code 10716 SUB INP/OBS CARE 2/35MIN Diagnoses Acute UTI N39.0 Acute bronchitis due to Rhinovirus J20.6 Sepsis A41.9 Thrombocytopenia D69.6 History of pulmonary embolus (PE) Z86.711 Fibromyalgia M79.7
--- NOTE | 2025-02-07 09:34 | Discharge Summary ---
Discharge Summary Date of Service February 07, 2025 Principal Dx & Hospital Course #1 = Principal Diagnosis (1) Acute UTI: -resolved -completed 7 day course of rocephin (2) Acute bronchitis due to Rhinovirus: -zithromax completed 3 days -supportive care -Yovani Isidro (3) Sepsis: -resolved (4) Thrombocytopenia: - Likely 2/2 acute infection above. Platelets have remained stable and slightly improved to 69. She has fatty liver on imaging and heterogenous spleen of unknown etiology-likely contributing to thrombocytopenia -resumed anticoagulation Platelet count stable (5) History of pulmonary embolus (PE): -coumadin (6) Fibromyalgia: follows with [facility]. On chronic steroids. 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 Also with acute bronchitis and asthma exacerbation secondary to rhino/enterovirus. Also with severe constipation seen on CT abdomen/pelvis. Dispo: - Home Health with PT, planned for 02/07 Admission HPI Per Admitting Provider Patient is an 84-year-old female with past medical history of CVA, PMR/fibromyalgia on chronic prednisone therapy, bilateral PEs in 2022 on warfarin, recurrent UTIs, asthma. Patient presented due to not feeling well for several days as well as left groin pain, dysuria, and increase in urinary frequency. She was found to have cystitis and constipation on AP CT is being admitted for concern for sepsis with hypotension (BP 89/52 on admission). Patient seen at bedside. She stated she was not feeling well for several days. She stated she is always tired, denies any change in this. Denies any fevers or chills. She stated she lives at home with her granddaughters who recently started school and brought home a cold which she felt like she had and has had a cough with yellow sputum production, denies any shortness of breath. She does endorse chest pain however stated it is chronic from her fibromyalgia and unchanged. Patient stated she has had left groin pain for 2 days as well as increase in urinary frequency and dysuria. She has had difficulty walking due to the groin pain. She stated she typically has daily bowel movements that she takes a fiber bar however has not had a bowel movement in 2 days. She denies any nausea or vomiting. She denies nicotine or alcohol use. She stated she no longer uses BiPAP for sleep apnea. She is due for her evening medications, she takes prednisone in the morning. She was previously full code however now wishes to be DNR/DNI. Patient reevaluated at bedside at due to increasing oxygen requirement. With expiratory wheezing bilaterally and increase in work of breathing. DuoNeb ordered and symptoms improved. Discharge Exam GENERAL APPEARANCE NAD, activity normal for age, well developed/ well nourished, no cyanosis, pallor, or diaphoresis. EYES lids/conjunctiva normal. EARS/NOSE/THROAT Mucous membranes moist, nares normal, lips/teeth normal uvula midline without oral pharyngeal erythema, exudate or swelling TMs normal bilaterally. No lymphangitis/lymphedema. HEAD/NECK normocephalic atraumatic, no facial trauma, neck is supple. RESPIRATORY respiratory effort normal, speaks in full sentences, no tripod position, no accessory muscle use. Lungs clear to auscultation without rhonchi, wheezes, rales CARDIAC Regular rate and rhythm, no edema. ABDOMINAL Soft, ND/NT. No evidence of fluid wave. No pulsatile masses on exam, r ebound tenderness, Hernandez sign or pain over Mcburney's point. MUSCLES/EXTREMITIES No abnormal range of motion, no swelling. SKIN Warm, pink and dry. No rashes, dermatoses, petechiae or lesions. NEUROLOGICAL Speech is clear and appropriate. Normal level of consciousness. Gait and coordination are normal. 5/5 strength in all extremities. PSYCH Normal mood and affect. Judgement/competence is appropriate Discharge Plan Discharge Items Patient Disposition: Home - Self-Care Reason For Visit: SEPSIS,CYSTITIS,THROMBOCYTOPENIA,ELEVATED TROPONIN Discharge Diagnosis: cystitis, rhinovirus Condition on Discharge: Fair Activity: Resume your previous activity Non-emergency contact: Primary Care Provider Call non-emergency contact if: you have any medication questions Follow-up/Referrals: Thal,Gege A., MD [Primary Care Provider] - Diet: Regular Addtl Attending Provider Instructions: Follow up with PMD in 1 week Pending Studies at Discharge: No Stand-Alone Forms: My [facility] [employer], Smoking Cessation Medications and DC Order Prescriptions: New benzonatate 100 mg Capsule 100 mg PO TID PRN (Reason: cough) Qty: 30 0RF dextromethorphan-guaifenesin [Robitussin Cough-Chest Polo DM] 5-100 mg/5 mL Liquid 10 ml PO Q6H PRN (Reason: cough) Qty: 100 0RF Continued Orazinc 25 mg zinc (110 mg) tablet 25 mg PO QAM acetaminophen 500 mg tablet 500 mg PO DAILY PRN (Reason: Pain) warfarin 2 mg tablet See Rx Instructions PO UD Rx Instructions: 2 mg daily, or as directed per [facility] TAKES DAILY AT 1600 fluticasone furoate-vilanterol [Breo Ellipta] 100-25 mcg/dose blister with device 1 inh inhalation QPM Qty: 60 3RF levothyroxine 75 mcg tablet 75 mcg PO DAILYBB Qty: 90 3RF Rx Instructions: TAKE 1 TABLET BY MOUTH DAILY latanoprost 0.005 % drops 1 drops OPB QPM trazodone 100 mg tablet 50 mg PO QPM Rx Instructions: Patient only taking 50mg at bedtime (03/05/2023) furosemide 20 mg tablet 20 mg PO QAM Systane Gel 0.3 % gel 1 drp OPR BID Rx Instructions: Uses in Right eye Systane Ultra 0.4-0.3 % drops 1 drp OPL BID Rx Instructions: uses in left eye albuterol sulfate 90 mcg/actuation HFA aerosol inhaler 2 puff INH Q4H PRN (Reason: shortness of breath or wheezing) Qty: 1 11RF tramadol 50 mg tablet 50 mg PO AMHS PRN (Reason: pain) Qty: 60 0RF topiramate 50 mg tablet 50 mg PO BID Qty: 60 5RF pantoprazole 40 mg tablet,delayed release (DR/EC) 40 mg PO BID 90 Days Qty: 180 3RF multivitamin Tablet 1 tab PO QAM dorzolamide-timolol 22.3-6.8 mg/mL drops 1 drp OPB BID cholecalciferol (vitamin D3) [Vitamin D3] 25 mcg (1,000 unit) Tablet 100 mcg PO QAM fexofenadine 180 mg Tablet 180 mg PO QAM magnesium 250 mg Tablet 250 mg PO QAM docusate sodium 100 mg capsule 100 mg PO QAM PRN (Reason: Constipation) gabapentin 300 mg capsule 300 mg PO BID prednisone 5 mg tablet 5 mg PO DAILY duloxetine 60 mg capsule,delayed release(DR/EC) 120 mg PO QAM famotidine 20 mg tablet 20 mg PO HS montelukast 10 mg tablet 10 mg PO HS Discharge Orders: Discharge Order (Routine); Ordered 02/07/25 Ordered By: Ankit Clemens Admission Data Admit Date/Time: 01/30/25 21:49 Attending Provider: Ankit Clemens Admit Provider: Mariano Linn Primary Care Provider: Gege Alexis Other Providers: Mariano Linn Hospital Stay Data Consultations 01/30/25 19:51 ED Decision to Admit Stat Diagnostic Imagining Performed 01/30/25 16:21 CT abd pelvis IV con only Stat Pending Results Patient Have Any Pending Studies at Discharge: No Discharge Instructions Given to Patient (Per Discharging Provider) Follow up with PMD in 1 week Total Time Total Time Spent Total Time Spent (In Minutes): 50 Coding Level of Care Code 03772 INP/OBS DISCH >30 MIN Diagnoses Acute UTI N39.0 Acute bronchitis due to Rhinovirus J20.6 Sepsis A41.9 Thrombocytopenia D69.6 History of pulmonary embolus (PE) Z86.711 Fibromyalgia M79.7
[2025-02-07 11:18] VITALS: RESP 18; TEMP 98.6; O2SAT 92
[2025-02-07 12:40] VITALS: BP 101/66; PULSE 80
== END 2025-02-07 13:33 | disposition home or self-care (01) | DRG 871 ==
LOC: ED 15:52 → SUATTDRO 21:49 → EDINP 21:49 → 2S 01-31 00:45

== ENCOUNTER 2025-02-08 14:18 | Inpatient (IN) ==
[2025-02-08] MEDS: PLASMA-LYTE A 1,000 ML IV ONE ×2 (14:59→15:37)
--- NOTE | 2025-02-08 15:03 | Emergency Department Note ---
Impression & Plan Sepsis, Intramuscular hematoma, Acidosis, lactic, Pneumonia, Acute on chronic respiratory failure, Elevated troponin I level, Pancytopenia ED Provider Note NAME: LENA PAIZ AGE: 84 SEX: F : 1940 ARRIVES VIA: Ambulance INFORMANT: Patient, EMS ED PROVIDER(S): Andreas Drummond DO CHIEF COMPLAINT: pain, weakness and fever HPI: This is a 84-year-old female with the PMHx of fibromyalgia, prior PE on Coumadin, IBS, GERD, hypothyroidism, asthma, AYE, CVA, CAD s/p CABG, osteoporosis, and Raynaud's disease presenting to [facility] for further evaluation of multiple complaints. Patient is accompanied by EMS who provide additional history. EMS reports the patient has been tachypneic, intermittently tachycardic, febrile and hypoxic. They were called for generalized weakness, shortness of breath and fatigue/malaise. Patient has had pain all over. She relates that this is related to her fibromyalgia. She reports worsening shortness of breath. EMS reports the patient was just discharged yesterday. It appears she was admitted for a complicated UTI that required 7 days of IV troth ceftriaxone. Patient was rhino/enterovirus positive at that time. They deny fever or chills. No cough or congestion. Denies chest pain or palpitations.They deny abdominal pain, nausea and vomiting. No urinary complaints. No recent changes in bowel movements. Patient denies recent changes in medications or OTC supplements. Patient offers no other complaints, today. ADDITIONAL HISTORY OBTAINED: Per HPI Chronic Medical/Social Conditions Affecting Care: Per HPI PAST MEDICAL HISTORY: See Below PAST SURGICAL HISTORY: See Below FAMILY HISTORY: See Below SOCIAL HISTORY: See Below HOME MEDICATIONS: See Below ALLERGIES: See Below VITALS: See Below PHYSICAL EXAMINATION: GENERAL: Sitting up in bed, alert, ill appearing, well nourished, no distress, non-toxic EYE EXAM: normal conjunctiva. PERRL and EOM's grossly intact. OROPHARYNX: no exudate, no erythema, lips, buccal mucosa, and tongue normal and mucous membranes are moist NECK: supple, no nuchal rigidity, no adenopathy, non-tender LUNGS: decreased breath sounds in all lung holden. Normal chest wall mechanics HEART: no murmurs, Tachycardic rate, irregular rhythm ABDOMEN: abdomen soft, non-tender, no masses, no rebound or guarding. Ecchymoses over the lower quadrants of the abdomen likely from insulin versus heparin injections while she was admitted to the hospital BACK: Back is symmetrical on inspection and there is no deformity, no midline tenderness, no CVA tenderness. SKIN: no rashes and no bruising UPPER EXTREMITIES: upper extremities are grossly normal. LOWER EXTREMITIES: significant ecchymoses and swelling of the left lower extremity. The extremity is warm with 2+ DP pulses and brisk capillary refill. Ecchymoses extending from the ankle into the medial aspect of the thigh. Lower extremities are symmetrically swollen. There is 2+ pitting edema. NEURO EXAM: Normal sensorium, GCS 15, normal speech, no gross weakness of arms, no gross weakness of legs. MEDICAL DECISION MAKING: Differential diagnoses includes but not limited to sepsis, bacteremia, pneumonia, viral URI, complicated UTI, electrolyte derangements, dehydration, ambulatory dysfunction In summary, this is a 84 year old female who presented with sepsis. Differential as above. Nursing notes and pertinent past medical records reviewed. Vital signs reviewed and the patient is borderline hypotensive and she was hypotensive with EMS. This appears to be near her baseline. Patient is tachycardic as well as tachypneic. Patient meets SIRS criteria with these vital signs as well as her prehospital fever. Given recent admission for infectious etiologies, I am concerned for sepsis. Plan to start broad-spectrum antibiotics and gentle IV fluid resuscitation. History and presentation revealed recent admission and 7- day course of ceftriaxone. Appears to have recurrent UTIs. She is also rhino enterovirus positive. Physical examination revealed Significant left lower extremity ecchymoses. No trauma or falls. Would consider heparin-induced thrombocytopenia. Pending CBC. As a result of my initial evaluation, I do believe the patient is likely septic and she was septic alerted when she got here. Plan for further evaluation. Diagnostics interpreted by me include EKG and cardiac monitoring as listed below: -Cardiac Monitoring: An order was placed for continuous cardiac monitoring. The monitor shows a rate of 80-110s with irregular rhythm. -ECG: EKG independently interpreted by me reveals sinus tachycardia at a rate of 101 bpm. There are premature supraventricular contractions present. No significant ST segment changes to suggest STEMI. Intervals are otherwise within normal limits Patient completed laboratory studies and imaging. Results independently interpreted by me are Elevated lactate. A liter of Plasma-Lyte was ordered for the patient. Will continue to reassess if she needs more IV fluid resuscitation. Patient was just admitted to the hospital. She has significant weakness and ambulatory dysfunction. Her vital signs are consistent with sepsis at this time. I suspect this could be a pneumonia or possible recurrent UTI. Plan for admission. Patient does have pancytopenia that appears similar to prior. 1530, the patient was accompanied by her daughter at the bedside. I updated them on results thus far. Patient lives with her daughter. She has had significant ambulatory dysfunction since arriving home. She is unable to pull her oxygen with her. She feels very unsafe at home. INR is subtherapeutic. VBG shows no CO2 retention. Mild pseudohyponatremia in the setting of hyperglycemia. Increased BUN to creatinine ratio likely from mild dehydration. Magnesium is mildly low at 1.8. Minimal elevation of total bilirubin and AST. Will provide a gram of IV magnesium sulfate replenishment. Chest x-ray was independently interpreted by me as negative for pneumonia. Patient does have a urinalysis that does not show evidence of infection. Unclear source of patient's sepsis at this time. Patient is subtherapeutic on her INR. Has not been taking her medications. Was on Lovenox when she was in the hospital. Will obtain a CT PE study for further evaluation of pulmonary embolism as well as her lung parenchyma. Will extend into the abdomen/pelvis given generalized tenderness. CT PE study was independently turbid by me as positive for pneumonia. Does not have a large saddle pulmonary embolism. Does have a chronic pulmonary embolism. CT abdomen/pelvis showed some intramuscular hematomas but no acute intra- abdominal pathology. Patient has been intermittently hypotensive. Her mentation has remained stable. Patient has good urine output. Her tachycardia has improved. Her lactate is downtrending. Patient does not have an MARIANO. Do feel that the patient should continue being observed for changes that would necessitate further resuscitation. I do not think the patient has significant hypoperfusion at this time. The patient is septic secondary to pneumonia. Patient recently had rhino/enterovirus. Her urine appeared to be clear this time. Patient does have cytopenias as well as LFT changes, will add tickborne illness panel. Ultimately, the decision was made to admit the patient for sepsis secondary to pneumonia with intramuscular hematomas and electrolyte derangements. Patient has mild hypomagnesemia and pseudohyponatremia. Does have slight elevation in troponin which is normal for her but likely related to the sepsis. I discussed the case with the hospitalist service via telephone/TigerText and they are agreeable to admit the patient to their services by Dr. Raymundo. Based on the above, including the patient's age, coexisting illnesses, labs, imaging, and exam findings the decision to treat as an inpatient. I discussed the patient with the hospitalist team who recommended admission to their services. They received the medications, treatments, interventions indicated above and their condition remained guarded. I discussed my findings with the patient and their family and they understand and agree with the treatment plan. All patient / family questions were answered to their satisfaction. Consults/Care Managements Discussions: Per MDM ER treatment provided: See above Procedures: none Critical Care: I have personally spent 36 minutes of critical care time in direct management of this patient. This includes bedside care, interpretation of diagnostic studies, and testing, discussion with consultants, patient, and family members, and other require inpatient management activities. This 36 minutes is in excess of all separately billable procedures. The chart was completed utilizing [employer] Speech voice recognition software. Grammatical errors, random word insertions, pronoun errors, and incomplete sentences are an occasional consequence of this system due to software limitations, ambient noise, and hardware issues. Any formal questions or concerns about the content, text, or information contained within the body of this dictation should be directly addressed to the physician for clarification. Past Med/Surg History Problem List (Updated 02/08/25 @ 19:06 by Andreas Drummond DO) Pancytopenia (Acute) Elevated troponin I level (Acute) Acute on chronic respiratory failure (Acute) Pneumonia (Acute) Acidosis, lactic (Acute) Intramuscular hematoma (Acute) Sepsis (Acute) Intramuscular hematoma Acute bronchitis due to Rhinovirus Asthma exacerbation Thrombocytopenia Hypotension Sepsis Constipation (Acute) Acute UTI (Acute) Elevated troponin (Acute) LLQ abdominal pain (Acute) Headache (Chronic) Flatulence Acute metabolic encephalopathy Subtherapeutic international normalized ratio (INR) Hyponatremia Chronic sinusitis, unspecified Globus sensation Nasal vestibulitis Bilateral otitis externa Excessive daytime sleepiness Recurrent pulmonary emboli Raynauds disease Anticoagulant long-term use Anticoagulated on Coumadin Bilateral pulmonary embolism (Acute) Arthritis Glaucoma (Chronic) Current chronic use of systemic steroids (Chronic) Hearing difficulty (Chronic) IFG (impaired fasting glucose) (Chronic) Incomplete bladder emptying (Chronic) Migraine (Chronic) Moderate aortic insufficiency (Chronic) Osteoporosis, 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) Urethral stricture (Chronic) 3-vessel coronary artery disease Endometriosis Allergic rhinitis Cervicogenic headache Adult situational stress disorder Cerebrovascular disease Chronic fatigue syndrome with fibromyalgia AYE (obstructive sleep apnea) Traumatic open wound of left lower leg with delayed healing (Acute) Bile duct obstruction Anemia Choledocholithiasis Anxiety and depression Polymyalgia rheumatica Chronic venous insufficiency (Chronic) Balance disorder Neck pain Rosacea History of diverticulosis Nocturnal hypoxemia Medical marijuana use History of GI bleed History of pulmonary embolus (PE) 01/2022--on xarelto--following with Dr. 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 History of COVID-19 01/2022--hospitalized @ [facility]--no symptoms now IBS (irritable bowel syndrome) Pulmonary hypertension Severe per 07/2021 ECHO- PASP 79mmHg--following with [facility] [place] [place] Fibromyalgia (Chronic) GERD (gastroesophageal reflux disease) (Chronic) Hypothyroid Asthma (Chronic) SOB with exertion--uses breo inhaler daily and rescue inhaler prn Chronic insomnia (Chronic) Medical History On home oxygen therapy 2 L N/C at hs Sleep apnea Not currently using Bipap--awaiting new machine--using 2L of oxygen at HS Chronic venous insufficiency Pulmonary nodule Currently under observation History of migraine History of gastric ulcer Aortic valve insufficiency Moderate per 07/[address] 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, reports no residual deficits, no issues since Surgical History History of colonoscopy S/P ERCP multiple---11/08/21 and 01/31/22 @ [facility] H/O tubal ligation S/P cataract surgery History of esophagogastroduodenoscopy (EGD) (~2011) History of orthopedic surgery rhizotomy- pt unsure about this H/O sinus surgery History of lumbar laminectomy 2000 History of hysterectomy with unilateral oopherectomy- 1978 History of cholecystectomy Family History Mother Diabetes Ovarian cancer Hypertension Kidney disease Father Diabetes Cardiac disorder Hypertension Stroke Alcohol abuse Other specified hearing loss, bilateral Aunt Breast cancer Brother Cancer Alcohol abuse Daughter , peritonitis Alcohol abuse Anxiety Dementia Family/Other Depression Anxiety Other No significant family history Denies family history of Colorectal cancer Social History Smoking Status: Never smoker Second Hand Exposure: No; Do You Dip or Chew Tobacco: No; Hx Alcohol Use: No Hx Substance Use: No Preferred Language: [place] Communication Ability: Effective Visual Impairment: Limited Hearing Ability: Hard of Hearing Icu Clerk Required: No Beliefs That Will Affect Care: None marital status: / Current Living Situation: Family Current Living Situation Comment: Lives with 2 great grandchildren current occupational status: retired How many Children do You have: 1 Feels Safe at Home: Yes Childhood Exposure to Second-Hand Smoke: No Diet: regular caffeine: No during the past year weight has: decreased > 10 lbs Dental Care, Regularly: Yes Physical Activity Frequency: 1-2 Times per Week Seatbelt Use: always Sunscreen Use: Yes Assistive Devices: CPAP and Hearing Aid - Left Allergies Allergies Allergy/AdvReac Type Severity Reaction Status Date / Time aspirin Allergy Intermediate GI UPSET Verified 02/08/25 16:25 codeine Allergy Intermediate GI UPSET Verified 02/08/25 16:25 erythromycin base Allergy Intermediate GI UPSET Verified 02/08/25 16:25 Home Meds Home Medications Medication Instructions Recorded Confirmed multivitamin 1 tab PO QAM 06/10/18 02/08/25 latanoprost 0.005 % eye drops 1 drops OPB QPM 03/03/19 02/08/25 dorzolamide 22.3 mg-timolol 6.8 1 drp OPB BID 10/07/20 02/08/25 mg/mL eye drops zinc sulfate 25 mg zinc (110 mg) 25 mg PO QAM 12/11/20 02/08/25 tablet (Orazinc) furosemide 20 mg tablet 20 mg PO QAM 09/18/21 02/08/25 magnesium 250 mg tablet 250 mg PO QAM 09/23/21 02/08/25 cholecalciferol (vitamin D3) 25 100 mcg PO QAM 11/10/21 02/08/25 mcg (1,000 unit) tablet (Vitamin D3) fexofenadine 180 mg tablet 180 mg PO QAM 01/20/23 02/08/25 artificial tears(hypromellose) 0.3 1 drp OPR BID 03/05/23 02/08/25 % eye gel (Systane Gel) docusate sodium 100 mg capsule 100 mg PO QAM PRN Constipation 03/05/23 02/08/25 peg 400-propylene glycol 0.4 %-0.3 1 drp OPL BID 03/05/23 02/08/25 % eye drops (Systane Ultra) trazodone 100 mg tablet 50 mg PO QPM 03/05/23 02/08/25 acetaminophen 500 mg tablet 500 mg PO DAILY PRN Pain 06/22/24 02/08/25 gabapentin 300 mg capsule 300 mg PO BID 11/14/24 02/08/25 prednisone 5 mg tablet 5 mg PO DAILY 11/14/24 02/08/25 warfarin 2 mg tablet 2 mg PO DAILY 12/02/24 02/08/25 duloxetine 60 mg capsule,delayed 120 mg PO QAM 01/30/25 02/08/25 release famotidine 20 mg tablet 20 mg PO HS 01/30/25 02/08/25 montelukast 10 mg tablet 10 mg PO HS 01/30/25 02/08/25 Previous Rx's Medication Instructions Recorded tramadol 50 mg tablet 50 mg PO AMHS PRN pain #60 tabs 11/20/23 Breo Ellipta 100 mcg-25 mcg/dose 1 inh inhalation QPM #60 ea 12/28/23 powder for inhalation (fluticasone furoate-vilanterol) albuterol sulfate 90 mcg/actuation 2 puff inhalation Q4H PRN 05/17/24 aerosol inhaler shortness of breath or wheezing #1 inhaler pantoprazole 40 mg tablet,delayed 40 mg PO BID 90 days #180 tabs 11/24/24 release levothyroxine 75 mcg tablet 75 mcg PO DAILYBB #90 tabs 12/20/24 topiramate 50 mg tablet 50 mg PO BID #60 tabs 01/05/25 benzonatate 100 mg capsule 100 mg PO TID PRN cough #30 caps 02/07/25 dextromethorphan-guaifenesin 5 10 ml PO Q6H PRN cough #100 mL 02/07/25 mg-100 mg/5 mL oral liquid (Robitussin Cough-Chest Congestion DM) Results & Data (ED) Vital Signs Vital Signs - 24 hr 02/08/25 14:30 02/08/25 14:32 02/08/25 14:32 Temperature 37.2 C Temperature Source Oral Pulse Rate 98 H 110 H Pulse Rate [Apical] 100 H Respiratory Rate 20 22 Respiratory Effort / Characteristics Non-Labored Spontaneous Non-Labored Spontaneous Respiratory Depth Normal Normal Respiratory Pattern Tachypnea Blood Pressure 110/52 L Blood Pressure [Left Arm] Blood Pressure [Right Arm] 110/52 L Blood Pressure Mean 71 Blood Pressure Mean [Left Arm] Blood Pressure Mean [Right Arm] 71 Blood Pressure Position Lying Blood Pressure Position [Right Arm] Lying Pulse Oximetry 93 93 Oxygen Delivery Method Nasal Cannula Nasal Cannula Oxygen Flow Rate 3 3 Sepsis Recent Fever Within 48 Hours Yes Sepsis New/Unexplained Change in Mental Status No Sepsis Action Taken by Nursing Physician Notified 02/08/25 14:32 02/08/25 14:45 02/08/25 14:56 Temperature Temperature Source Pulse Rate 110 H Pulse Rate [Apical] 105 H Respiratory Rate 21 22 Respiratory Effort / Characteristics Non-Labored Spontaneous Non-Labored Spontaneous Respiratory Depth Normal Normal Respiratory Pattern Tachypnea Blood Pressure Blood Pressure [Left Arm] Blood Pressure [Right Arm] 103/52 L Blood Pressure Mean Blood Pressure Mean [Left Arm] Blood Pressure Mean [Right Arm] 69 Blood Pressure Position Blood Pressure Position [Right Arm] Lying Pulse Oximetry 93 93 Oxygen Delivery Method Nasal Cannula Nasal Cannula Nasal Cannula Oxygen Flow Rate 3 3 3 Sepsis Recent Fever Within 48 Hours Sepsis New/Unexplained Change in Mental Status Sepsis Action Taken by Nursing 02/08/25 14:56 02/08/25 15:05 02/08/25 15:33 Temperature Temperature Source Pulse Rate Pulse Rate [Apical] 92 H Respiratory Rate 21 Respiratory Effort / Characteristics Non-Labored Spontaneous Respiratory Depth Normal Respiratory Pattern Blood Pressure Blood Pressure [Left Arm] 114/66 Blood Pressure [Right Arm] 113/60 Blood Pressure Mean Blood Pressure Mean [Left Arm] 82 Blood Pressure Mean [Right Arm] 77 Blood Pressure Position Blood Pressure Position [Right Arm] Lying Pulse Oximetry 93 95 Oxygen Delivery Method Nasal Cannula Nasal Cannula Oxygen Flow Rate 3 3 Sepsis Recent Fever Within 48 Hours Sepsis New/Unexplained Change in Mental Status Sepsis Action Taken by Nursing 02/08/25 15:40 02/08/25 15:45 02/08/25 16:15 Temperature 39.6 C H 39 C H Temperature Source Dye Cath ( Temp Sensing) Pulse Rate 96 H 89 Pulse Rate [Apical] 101 H Respiratory Rate 20 23 19 Respiratory Effort / Characteristics Non-Labored Spontaneous Respiratory Depth Normal Respiratory Pattern Regular Blood Pressure 107/56 L 99/52 L Blood Pressure [Left Arm] Blood Pressure [Right Arm] Blood Pressure Mean 73 67 Blood Pressure Mean [Left Arm] Blood Pressure Mean [Right Arm] Blood Pressure Position Blood Pressure Position [Right Arm] Pulse Oximetry 92 93 93 Oxygen Delivery Method Nasal Cannula Nasal Cannula Nasal Cannula Oxygen Flow Rate 3 3 3 Sepsis Recent Fever Within 48 Hours Sepsis New/Unexplained Change in Mental Status Sepsis Action Taken by Nursing 02/08/25 16:21 02/08/25 16:55 02/08/25 17:00 Temperature Temperature Source Pulse Rate 87 Pulse Rate [Apical] Respiratory Rate 20 Respiratory Effort / Characteristics Respiratory Depth Respiratory Pattern Blood Pressure 96/47 L 89/45 L 98/49 L Blood Pressure [Left Arm] Blood Pressure [Right Arm] Blood Pressure Mean 63 63 61 Blood Pressure Mean [Left Arm] Blood Pressure Mean [Right Arm] Blood Pressure Position Blood Pressure Position [Right Arm] Pulse Oximetry 94 Oxygen Delivery Method Nasal Cannula Oxygen Flow Rate 3 Sepsis Recent Fever Within 48 Hours Sepsis New/Unexplained Change in Mental Status Sepsis Action Taken by Nursing 02/08/25 17:18 02/08/25 17:31 02/08/25 17:32 Temperature 38.3 C H Temperature Source Dye Cath ( Temp Sensing) Pulse Rate 95 H Pulse Rate [Apical] 95 H Respiratory Rate 21 Respiratory Effort / Characteristics Respiratory Depth Respiratory Pattern Blood Pressure 91/58 L Blood Pressure [Left Arm] 83/38 L Blood Pressure [Right Arm] Blood Pressure Mean 69 Blood Pressure Mean [Left Arm] 53 Blood Pressure Mean [Right Arm] Blood Pressure Position Blood Pressure Position [Right Arm] Pulse Oximetry 92 94 Oxygen Delivery Method Nasal Cannula Room Air Oxygen Flow Rate 3 Sepsis Recent Fever Within 48 Hours Sepsis New/Unexplained Change in Mental Status Sepsis Action Taken by Nursing 02/08/25 17:37 02/08/25 18:03 02/08/25 18:15 Temperature 38.3 C H Temperature Source Dye Cath ( Temp Sensing) Pulse Rate 93 H Pulse Rate [Apical] 92 H Respiratory Rate 23 24 Respiratory Effort / Characteristics Non-Labored Spontaneous Respiratory Depth Normal Respiratory Pattern Regular Blood Pressure 83/51 L 85/49 L Blood Pressure [Left Arm] 84/42 L Blood Pressure [Right Arm] Blood Pressure Mean 61 62 Blood Pressure Mean [Left Arm] 56 Blood Pressure Mean [Right Arm] Blood Pressure Position Blood Pressure Position [Right Arm] Pulse Oximetry 94 95 Oxygen Delivery Method Nasal Cannula Nasal Cannula Oxygen Flow Rate 3 3 Sepsis Recent Fever Within 48 Hours Sepsis New/Unexplained Change in Mental Status Sepsis Action Taken by Nursing 02/08/25 18:21 02/08/25 18:38 Temperature Temperature Source Pulse Rate 88 90 Pulse Rate [Apical] Respiratory Rate 23 Respiratory Effort / Characteristics Respiratory Depth Respiratory Pattern Blood Pressure Blood Pressure [Left Arm] Blood Pressure [Right Arm] Blood Pressure Mean Blood Pressure Mean [Left Arm] Blood Pressure Mean [Right Arm] Blood Pressure Position Blood Pressure Position [Right Arm] Pulse Oximetry 97 Oxygen Delivery Method Nasal Cannula Oxygen Flow Rate 3 Sepsis Recent Fever Within 48 Hours Sepsis New/Unexplained Change in Mental Status Sepsis Action Taken by Nursing Laboratory Data 02/08/25 14:42 02/08/25 17:29 Lab Results 02/08/25 02/08/25 02/08/25 Range/Units 14:42 15:16 15:19 WBC 3.15 L (4.8-10.8) K/ul RBC 2.95 L (4.20-5.40) M/uL Hgb 9.3 L (12.0-16.0) g/dl Hct 28.5 L (37.0-47.0) % MCV 96.6 (80.0-100.0) fL MCH 31.5 (25.0-34.0) pg MCHC 32.6 (32.0-36.0) g/dL RDW Std Deviation 62.4 H (36.4-46.3) fL RDW Coeff of Sudha 17.8 H (11.5-14.5) % Plt Count 72 L (130-400) K/uL MPV 11.6 (9.4-12.4) fL Immature Gran % (Auto) 5.7 % Neut % (Auto) 68.6 % Lymph % (Auto) 14.6 % [place] % (Auto) 10.8 % Eos % (Auto) 0.0 % Baso % (Auto) 0.3 % Neut # (Auto) 2.16 (1.40-6.50) K/uL Lymph # (Auto) 0.46 L (1.20-3.40) K/uL [place] # (Auto) 0.34 (0.11-0.59) K/uL Eos # (Auto) 0.00 (0.00-0.50) K/uL Baso # (Auto) 0.01 (0.00-0.20) K/uL Immature Gran # (Auto) 0.18 (0.01-0.20) K/uL Absolute Nucleated RBC 0.11 (0.00-0.12) K/uL Nucleated RBC % (auto) 3.5 % Polychromasia 1+ PT 17.1 H (9.0-12.0) Seconds INR 1.6 H (0.9-1.1) VBG pH 7.40 (7.36-7.41) VBG pCO2 47 (38-50) mmHg VBG pO2 < 20 mmHg VBG HCO3 29 mmol/L VBG O2 Saturation < 60.0 % VBG Base Excess 3.5 mEq/L Sodium 133 L (136-145) mmol/L Potassium 3.5 (3.5-5.1) mmol/L Chloride 97 L (98-107) mmol/L Carbon Dioxide 30 (21-32) mmol/L Anion Gap 6 (3-11) BUN 19 (6-23) mg/dl Creatinine 0.87 (0.6-1.2) mg/dl Est Cr Clr Drug Dosing 35.5 ml/min eGFR 65.66 BUN/Creatinine Ratio 21.8 H (10-20) Glucose 163 H (70-99(Fasting)) mg/dl Lactate 3.0 H* (0.4-2.0) mmol/L Calcium 8.0 L (8.6-10.3) mg/dl Magnesium 1.8 (1.7-2.4) mg/dl Total Bilirubin 1.1 H (0.2-1.0) mg/dl Direct Bilirubin 0.3 H (0-0.2) mg/dl AST 44 H (13-39) U/L ALT 32 (7-52) U/L Alkaline Phosphatase 48 (34-104) U/L Troponin I High Sens 38.7 H (0-14) pg/ml Total Protein 4.8 L (6.0-8.3) gm/dl Albumin 3.0 L (3.4-5.0) gm/dl Procalcitonin 0.19 (0-0.5) ng/ml Urine Color Dark Yellow Urine Appearance Turbid A (Clear) Urine pH 8.5 H (4.5-7.5) Ur Specific [place] 1.020 (1.000-1.030) Urine Protein Trace H (Negative) Urine Glucose (UA) Negative (Negative) Urine Ketones Negative (Negative) Urine Blood Negative (Negative) Urine Nitrite Negative (Negative) Urine Bilirubin Negative (Negative) Urine Urobilinogen Negative (Negative) Ur Leukocyte Esterase Negative (Negative) Urine WBC (Auto) 0-5 (0-5) /hpf Urine RBC (Auto) 3-5 H (0-2) /hpf U Hyaline Cast (Auto) 0-2 (0-2) /lpf U Epithel Cells (Auto) 0-2 (0-2) /hpf Urine Bacteria (Auto) None Seen (None Seen) Calcium Oxalate Crystal Present A (None Prsent) Amorphous Sediment Present A (None Prsent) Urine Comment Nasal Screen MRSA (PCR) (Negative) 02/08/25 02/08/25 Range/Units 17:29 Unknown WBC (4.8-10.8) K/ul RBC (4.20-5.40) M/uL Hgb (12.0-16.0) g/dl Hct (37.0-47.0) % MCV (80.0-100.0) fL MCH (25.0-34.0) pg MCHC (32.0-36.0) g/dL RDW Std Deviation (36.4-46.3) fL RDW Coeff of Sudha (11.5-14.5) % Plt Count (130-400) K/uL MPV (9.4-12.4) fL Immature Gran % (Auto) % Neut % (Auto) % Lymph % (Auto) % [place] % (Auto) % Eos % (Auto) % Baso % (Auto) % Neut # (Auto) (1.40-6.50) K/uL Lymph # (Auto) (1.20-3.40) K/uL [place] # (Auto) (0.11-0.59) K/uL Eos # (Auto) (0.00-0.50) K/uL Baso # (Auto) (0.00-0.20) K/uL Immature Gran # (Auto) (0.01-0.20) K/uL Absolute Nucleated RBC (0.00-0.12) K/uL Nucleated RBC % (auto) % Polychromasia PT (9.0-12.0) Seconds INR (0.9-1.1) VBG pH (7.36-7.41) VBG pCO2 (38-50) mmHg VBG pO2 mmHg VBG HCO3 mmol/L VBG O2 Saturation % VBG Base Excess mEq/L Sodium 131 L (136-145) mmol/L Potassium 3.5 (3.5-5.1) mmol/L Chloride 97 L (98-107) mmol/L Carbon Dioxide 27 (21-32) mmol/L Anion Gap 7 (3-11) BUN 18 (6-23) mg/dl Creatinine 0.76 (0.6-1.2) mg/dl Est Cr Clr Drug Dosing 40.7 ml/min eGFR 77.22 BUN/Creatinine Ratio 23.7 H (10-20) Glucose 137 H (70-99(Fasting)) mg/dl Lactate 2.8 H* (0.4-2.0) mmol/L Calcium 7.2 L (8.6-10.3) mg/dl Magnesium (1.7-2.4) mg/dl Total Bilirubin (0.2-1.0) mg/dl Direct Bilirubin (0-0.2) mg/dl AST (13-39) U/L ALT (7-52) U/L Alkaline Phosphatase (34-104) U/L Troponin I High Sens 42.5 H (0-14) pg/ml Total Protein (6.0-8.3) gm/dl Albumin (3.4-5.0) gm/dl Procalcitonin (0-0.5) ng/ml Urine Color Urine Appearance (Clear) Urine pH (4.5-7.5) Ur Specific [place] (1.000-1.030) Urine Protein (Negative) Urine Glucose (UA) (Negative) Urine Ketones (Negative) Urine Blood (Negative) Urine Nitrite (Negative) Urine Bilirubin (Negative) Urine Urobilinogen (Negative) Ur Leukocyte Esterase (Negative) Urine WBC (Auto) (0-5) /hpf Urine RBC (Auto) (0-2) /hpf U Hyaline Cast (Auto) (0-2) /lpf U Epithel Cells (Auto) (0-2) /hpf Urine Bacteria (Auto) (None Seen) Calcium Oxalate Crystal (None Prsent) Amorphous Sediment (None Prsent) Urine Comment Nasal Screen MRSA (PCR) Negative (Negative) Administered Medications Discontinued Medications Fentanyl Citrate (Fentanyl Citrate Pf 100 Mcg/2 Ml Vial) 50 mcg IV NOW ONE Stop: 02/08/25 14:26 Last Admin: 02/08/25 15:34 Dose: 50 mcg Documented By: [facility] Cefepime HCl (Maxipime 2000mg) 2,000 mg in 20 mls @ 5 mls/min IV NOW STA; Protocol Stop: 02/08/25 14:28 Last Admin: 02/08/25 15:34 Dose: 5 mls/min Documented By: [facility] Acetaminophen (Ofirmev) 1,000 mg in 100 mls @ 400 mls/hr IV NOW STA Stop: 02/08/25 14:39 Last Infusion: 02/08/25 15:50 Dose: Infused Documented By: [facility] Admin: 02/08/25 15:35 Dose: 400 mls/hr Documented By: [facility] Parenteral Electrolytes (Plasma-Lyte A Ph 7.4) 1,000 mls @ 999 mls/hr IV .Q1H1M ONE Stop: 02/08/25 15:25 Last Infusion: 02/08/25 17:00 Dose: Infused Documented By: [facility] Admin: 02/08/25 14:59 Dose: 999 mls/hr Documented By: CC Parenteral Electrolytes (Plasma-Lyte A Ph 7.4) 1,000 mls @ 999 mls/hr IV .Q1H1M ONE Stop: 02/08/25 15:31 Last Infusion: 02/08/25 17:00 Dose: Infused Documented By: [facility] Admin: 02/08/25 15:37 Dose: 999 mls/hr Documented By: [facility] Magnesium Sulfate/Dextrose (Magnesium Sulfate / D5w) 1 gm in 100 mls @ 100 mls/hr IV NOW STA Stop: 02/08/25 16:46 Last Infusion: 02/08/25 18:39 Dose: Infused Documented By: [facility] Admin: 02/08/25 17:34 Dose: 100 mls/hr Documented By: [facility] Ioversol (Optiray 320 125ml) 115 ml IV ONCE ONE Stop: 02/08/25 16:39 Last Admin: 02/08/25 16:39 Dose: 115 ml Documented By: [facility] Imaging Data Radiologist's Impression: Chest X-Ray 02/08/25 14:29 XR chest 1V portable CLINICAL HISTORY: Sepsis. COMPARISON STUDY: Chest CT November 16, 2024. Chest radiograph February 04, 2025. FINDINGS: There is no pneumothorax. There are small bilateral pleural effusions. Mild bibasilar opacities are present. There is also mild left midlung opacity. Cardiomegaly is unchanged. Mediastinal contours are stable. There is no radiographic evidence for pulmonary edema. IMPRESSION: 1. Small bilateral pleural effusions. Associated bibasilar opacities favor atelectasis. 2. Mild left midlung opacity which could represent a mild infectious process or atelectasis. ACT 112: Negative or not required by law. Electronically signed by: Joselito Montes M.D. 02/08/2025 3:58 PM Abdomen/Pelvis CT 02/08/25 15:57 Clinical History: Sepsis Technique: Axial computed tomography images were obtained of the abdomen and pelvis after the administration of intravenous contrast. Comparison is made to the prior CT dated 01/30/2025. Findings: The liver is overall of normal size, attenuation, and contour with no sign of cirrhosis or significant fatty infiltration. No liver mass lesion is seen. The portal vein is patent. The gallbladder appears to have been removed. There is mild bile duct dilatation that is likely due to the postcholecystectomy state The spleen is of normal size. Again seen are multiple mildly low-attenuation round areas within the spleen. The pancreas appears normal with no sign of acute or chronic pancreatitis and no mass lesion noted. The pancreatic duct is of normal caliber. The adrenal glands appear unremarkable. No definite renal or proximal ureteral calculi are seen on this contrast-enhanced study. There is no hydronephrosis or perinephric stranding. No renal mass lesion is identified. There is a 1.4 cm right renal cyst The abdominal aorta is of normal caliber. No abdominal adenopathy is seen. There is prominence of the wall of the stomach that is likely due to the decompressed state. There is no sign of small bowel obstruction. There is diverticulosis without definite diverticulitis. There is constipation. No free intraperitoneal air is identified. There is a minimal amount of free pelvic fluid No distal ureteral or bladder calculi are seen. The bladder is decompressed, containing a Dye catheter. The iliac arteries are of normal caliber. No pelvic adenopathy is noted. The uterus has been removed There is new enlargement of the left pectineus muscle with suspected subacute intramuscular hemorrhage. There has been interval increase in enlargement of the right lower quadrant abdominal wall musculature laterally, involving the internal oblique muscle. This measures up to 7.2 x 2.4 cm in the axial plane, previously 2.4 x 1 cm. Lumbar scoliosis and degenerative disc disease is seen. There is grade 2 anterolisthesis at L3-4 and L4-5. No fracture is identified. No focal osseous lesion is seen Impression: 1. Interval worsening of heterogeneous enlargement of the right internal oblique muscle, which could be due to intramuscular hemorrhage 2. New suspected subacute hemorrhage within the left pectineus muscle 3. New minimal amount of pelvic ascites 4. No definite change in multiple splenic lesions that could represent complex cysts or hemangiomas but are indeterminate in nature. A follow-up MRI of the abdomen with and without contrast could be considered 5. Small right renal cyst 6. Diverticulosis without definite diverticulitis 7. Constipation ACT 112: Positive. There are findings on this exam that require communication between the performing entity and the patient following Patient Test Result Information Act ([place] ACT 112) guidelines. Electronically signed by Kristopher Garzon 02-08-2025 5:25 PM Chest CTA 02/08/25 15:57 Technique: Axial computed tomography images were obtained of the chest after the administration of intravenous contrast according to the CT angiogram protocol Comparison is made to the prior CT dated 11/16/2024 Findings: There is unchanged nonocclusive embolus within the right pulmonary artery. There are unchanged small nonocclusive peripheral emboli bilaterally. There is no definite sign of new pulmonary embolism. There are worsened ground glass opacities in both upper lobes. There is bilateral lower lobe atelectasis. There is mild pulmonary edema. There is no pneumothorax. There are new small bilateral pleural effusions There are mildly enlarged mediastinal and bilateral hilar lymph nodes. The thoracic aorta appears unremarkable with no sign of aneurysm or dissection. There is no pericardial effusion. There is coronary atherosclerosis No fracture is seen. No focal osseous lesion is evident Impression: 1. Unchanged chronic pulmonary embolism 2. No definite sign of new pulmonary embolism 3. Mild pulmonary edema and small bilateral pleural effusions 4. Groundglass opacities in both upper lobes that could be due to pneumonia ACT 112: Positive. There are findings on this exam that require communication between the performing entity and the patient following Patient Test Result Information Act [place] ACT 112) [place]. Electronically signed by Kristopher Garzon 02-08-2025 5:16 PM Discharge Plan Visit Data Chief Complaint: Shortness of Breath/Dyspnea Stated Complaint: SOB, CONFUSION, PAIN, FEVER ED Provider: Andreas Drummond Discharge Problem: Sepsis, Intramuscular hematoma, Acidosis, lactic, Pneumonia, Acute on chronic respiratory failure, Elevated troponin I level, Pancytopenia Patient Disposition: Admitted As Inpatient Condition: Serious Forms Stand Alone Forms: [facility] Hello Agent Prescriptions Prescriptions: No Action Orazinc 25 mg zinc (110 mg) tablet 25 mg PO QAM acetaminophen 500 mg tablet 500 mg PO DAILY PRN (Reason: Pain) warfarin 2 mg tablet 2 mg PO DAILY fluticasone furoate-vilanterol [Breo Ellipta] 100-25 mcg/dose blister with device 1 inh inhalation QPM Qty: 60 3RF levothyroxine 75 mcg tablet 75 mcg PO DAILYBB Qty: 90 3RF latanoprost 0.005 % drops 1 drops OPB QPM trazodone 100 mg tablet 50 mg PO QPM Rx Instructions: Patient only taking 50mg at bedtime (03/05/2023) furosemide 20 mg tablet 20 mg PO QAM Systane Gel 0.3 % gel 1 drp OPR BID Rx Instructions: Uses in Right eye Systane Ultra 0.4-0.3 % drops 1 drp OPL BID Rx Instructions: uses in left eye albuterol sulfate 90 mcg/actuation HFA aerosol inhaler 2 puff INH Q4H PRN (Reason: shortness of breath or wheezing) Qty: 1 11RF tramadol 50 mg tablet 50 mg PO AMHS PRN (Reason: pain) Qty: 60 0RF topiramate 50 mg tablet 50 mg PO BID Qty: 60 5RF pantoprazole 40 mg tablet,delayed release (DR/EC) 40 mg PO BID 90 Days Qty: 180 3RF multivitamin Tablet 1 tab PO QAM dorzolamide-timolol 22.3-6.8 mg/mL drops 1 drp OPB BID cholecalciferol (vitamin D3) [Vitamin D3] 25 mcg (1,000 unit) Tablet 100 mcg PO QAM fexofenadine 180 mg Tablet 180 mg PO QAM magnesium 250 mg Tablet 250 mg PO QAM docusate sodium 100 mg capsule 100 mg PO QAM PRN (Reason: Constipation) gabapentin 300 mg capsule 300 mg PO BID prednisone 5 mg tablet 5 mg PO DAILY duloxetine 60 mg capsule,delayed release(DR/EC) 120 mg PO QAM famotidine 20 mg tablet 20 mg PO HS montelukast 10 mg tablet 10 mg PO HS benzonatate 100 mg Capsule 100 mg PO TID PRN (Reason: cough) Qty: 30 0RF dextromethorphan-guaifenesin [Robitussin Cough-Chest [place] DM] 5-100 mg/5 mL Liquid 10 ml PO Q6H PRN (Reason: cough) Qty: 100 0RF Referrals Referrals: Gege Alexis MD [Primary Care Provider] -
[2025-02-08 15:23] LABS: Hematocrit (blood only) 28.5 % (37.0-47.0); Hemoglobin 9.3 g/dl (12.0-16.0); Mean Corpuscular Hemoglobin 31.5 pg (25.0-34.0); Mean Corpuscular Volume 96.6 fL (80.0-100.0); Platelet Count 72 K/uL (130-400); RDW Standard Deviation 62.4 fL (36.4-46.3); Red Blood Count 2.95 M/uL (4.20-5.40); White Blood Count 3.15 K/ul (4.8-10.8)
[2025-02-08 15:27] LABS: Alanine Aminotransferase 32.0 U/L (7-52); Albumin Level 3.0 gm/dl (3.4-5.0); Alkaline Phosphatase 48.0 U/L (34-104); Anion Gap 6.0 (3-11); Bilirubin,Total 1.1 mg/dl (0.2-1.0); Blood Urea Nitrogen 19.0 mg/dl (6-23); Calcium 8.0 mg/dl (8.6-10.3); Carbon Dioxide 30.0 mmol/L (21-32); Chloride 97.0 mmol/L (98-107); Creatinine Clr Calc Pharmacy 35.5 ml/min; Glucose 163.0 mg/dl (70-99(Fasting)); Magnesium 1.8 mg/dl (1.7-2.4); Potassium 3.5 mmol/L (3.5-5.1); Sodium 133.0 mmol/L (136-145); Total Protein 4.8 gm/dl (6.0-8.3)
[2025-02-08 15:32] LABS: Immature Granulocytes # (auto) 0.18 K/uL (0.01-0.20); Immature Granulocytes % (auto) 5.7 %; Polychromasia 1+
[2025-02-08] MEDS: CEFEPIME 2000MG 2,000 MG/20 ML SYR IV STA (15:34)
[2025-02-08] MEDS: ACETAMINOPHEN 1,000 MG/100 ML VIAL IV STA (15:35)
[2025-02-08 15:38] LABS: Base Excess VBG 3.5 mEq/L; HCO3 VBG 29 mmol/L; Oxygen Saturation VBG < 60.0 %; PCO2 VBG 47 mmHg (38-50); PO2 VBG < 20 mmHg; pH VBG 7.40 (7.36-7.41)
[2025-02-08 15:44] LABS: INR 1.6 (0.9-1.1); Procalcitonin 0.19 ng/ml (0-0.5); Prothrombin Time 17.1 Seconds (9.0-12.0)
[2025-02-08 15:54] LABS: Appearance Urine Turbid (Clear); Bacteria Urine Automated None Seen (None Seen); Cast Urine Automated 0-2 /lpf (0-2); Epithelial Cell Urine Auto 0-2 /hpf (0-2); Glucose Urine UA Negative (Negative); WBC Urine Automated 0-5 /hpf (0-5)
--- NOTE | 2025-02-08 15:59 | XRay Report ---
XR chest 1V portable CLINICAL HISTORY: Sepsis. COMPARISON STUDY: Chest CT November 16, 2024. Chest radiograph February 04, 2025. FINDINGS: There is no pneumothorax. There are small bilateral pleural effusions. Mild bibasilar opaci ties are present. There is also mild left midlung opacity. Cardiomegaly is unchanged. Mediastinal con tours are stable. There is no radiographic evidence for pulmonary edema. IMPRESSION: 1. Small bilateral pleural effusions. Associated bibasilar opacities favor atelectasis. 2. Mild left midlung opacity which could represent a mild infectious process or atelectasis. ACT 112: Negative or not required by law. Electronically signed by: Joselito Montes M.D. 02/08/2025 3:58 PM
[2025-02-08] MEDS: OPTIRAY 320 125ml IV ONE (16:39)
--- NOTE | 2025-02-08 17:16 | CT Scan Report ---
Technique: Axial computed tomography images were obtained of the chest after the administration of intravenous contrast according to the CT angiogram protocol Comparison is made to the prior CT dated 11/16/2024 Findings: There is unchanged nonocclusive embolus within the right pulmonary artery. There are unchanged small nonocclusive peripheral emboli bilaterally. There is no definite sign of new pulmonary embolism. There are worsened ground glass opacities in both upper lobes. There is bilateral lower lobe atelectasis. There is mild pulmonary edema. There is no pneumothorax. There are new small bilateral pleural effusions There are mildly enlarged mediastinal and bilateral hilar lymph nodes. The thoracic aorta appears unremarkable with no sign of aneurysm or dissection. There is no pericardial effusion. There is coronary atherosclerosis No fracture is seen. No focal osseous lesion is evident Impression: 1. Unchanged chronic pulmonary embolism 2. No definite sign of new pulmonary embolism 3. Mild pulmonary edema and small bilateral pleural effusions 4. Groundglass opacities in both upper lobes that could be due to pneumonia ACT 112: Positive. There are findings on this exam that require communication between the performing entity and the patient following Patient Test Result Information Act [place] ACT 112) [place]. Electronically signed by Kristopher Garzon 02-08-2025 5:16 PM
--- NOTE | 2025-02-08 17:26 | CT Scan Report ---
Clinical History: Sepsis Technique: Axial computed tomography images were obtained of the abdomen and pelvis after the administration of intravenous contrast. Comparison is made to the prior CT dated 01/30/2025. Findings: The liver is overall of normal size, attenuation, and contour with no sign of cirrhosis or significant fatty infiltration. No liver mass lesion is seen. The portal vein is patent. The gallbladder appears to have been removed. There is mild bile duct dilatation that is likely due to the postcholecystectomy state The spleen is of normal size. Again seen are multiple mildly low-attenuation round areas within the spleen. The pancreas appears normal with no sign of acute or chronic pancreatitis and no mass lesion noted. The pancreatic duct is of normal caliber. The adrenal glands appear unremarkable. No definite renal or proximal ureteral calculi are seen on this contrast-enhanced study. There is no hydronephrosis or perinephric stranding. No renal mass lesion is identified. There is a 1.4 cm right renal cyst The abdominal aorta is of normal caliber. No abdominal adenopathy is seen. There is prominence of the wall of the stomach that is likely due to the decompressed state. There is no sign of small bowel obstruction. There is diverticulosis without definite diverticulitis. There is constipation. No free intraperitoneal air is identified. There is a minimal amount of free pelvic fluid No distal ureteral or bladder calculi are seen. The bladder is decompressed, containing a Dye catheter. The iliac arteries are of normal caliber. No pelvic adenopathy is noted. The uterus has been removed There is new enlargement of the left pectineus muscle with suspected subacute intramuscular hemorrhage. There has been interval increase in enlargement of the right lower quadrant abdominal wall musculature laterally, involving the internal oblique muscle. This measures up to 7.2 x 2.4 cm in the axial plane, previously 2.4 x 1 cm. Lumbar scoliosis and degenerative disc disease is seen. There is grade 2 anterolisthesis at L3-4 and L4-5. No fracture is identified. No focal osseous lesion is seen Impression: 1. Interval worsening of heterogeneous enlargement of the right internal oblique muscle, which could be due to intramuscular hemorrhage 2. New suspected subacute hemorrhage within the left pectineus muscle 3. New minimal amount of pelvic ascites 4. No definite change in multiple splenic lesions that could represent complex cysts or hemangiomas but are indeterminate in nature. A follow-up MRI of the abdomen with and without contrast could be considered 5. Small right renal cyst 6. Diverticulosis without definite diverticulitis 7. Constipation ACT 112: Positive. There are findings on this exam that require communication between the performing entity and the patient following Patient Test Result Information Act ([place] ACT 112) guidelines. Electronically signed by Kristopher Garzon 02-08-2025 5:25 PM
[2025-02-08] MEDS: MAGNESIUM SULFATE / D5W 1 GM/100 ML BAG IV STA (17:34)
--- NOTE | 2025-02-08 18:46 | History & Physical Report ---
Date of Service February 08, 2025 Assessment & Plan (1) Sepsis: (2) Recurrent pulmonary emboli: (3) Anticoagulant long-term use: (4) Intramuscular hematoma: (5) Aortic valve insufficiency: Plan 84 y/o with history of PE's on coumadin, severe pulmonary hypertension and valvular heart disease who was recently hospitalized for E. coli UTI and rhinovirus/enterovirus, discharged home yesterday. During that admission she completed antibiotics with 7 days of rocephin for UTI and also course of azithromycin. She was diuresed a little and went home on oxygen, which is new for her. Admitted today with sepsis, worsened hypoxia and bilateral upper lobe GGOs on CTA. She also has extensive ecchymoses of right lower adominal wall and left groin/thigh tracking down leg with intramuscular hematomas on CT. #sepsis due to suspected pneumonia #hypotension - chronic, but may be worse than baseline procalcitonin negative thus far and just completed 7 days ceftriaxone and also azithromycin so not 100% clear cut. Treating for HAP with cefepime. MRSA nares negative, hold off on MRSA coverage. Recently had rhinovirus/enterovirus bronchitis. With the fever and GGOs on chest CT this could be another viral infection like COVID or influenza - check resp Biofire -cefepime for possible HAP -resp Biofire, random cortisol -check procal again in AM, with CBC/diff and BMP -chronic steroids and low cortisol in past - start stress dose steroids with IV hydrocortisone 100 mg now then 50 q6h -recieved sepsis bolus IVF in ED and mild lactate elevation downtrended, caution with IV fluids she is/has had fluid overload recently requiring diuresis, pleural effusions and significant edema, worsened hypoxia -PCU admission with the worsening hypoxia and hypotension she could also have heart failure and/or worsening pulmonary hypertension - TTE in AM. Last I see is 2022 #intramuscular hematomas - coagulopathy from coumadin as well as thrombocytopenia #chronic warfarin anticoagulation for recurrent PE, recurred on DOAC #severe pulmonary hypertension - f/b pulmonary at [facility] - thromboembolic + AYE -L pectineus hematoma seems to preexist the previous admission, the R oblique hematoma could be related to enoxaparin injection site -INR subtherapeutic at 1.6 - will hold coumadin for now until clear that hematomas and Hg stable. -add full coags to labs - fibrinogen, PTT -monitor CBC - suspect significant dilutional drop overnight, AM type and screen -hematomas can cause fever #pancytopenia - new anemia, thrombocytopenia since 01/30/25, leukopenia since at least 10/2024 -anemia may be related to acute blood loss anemia from the hematomas, thrombocytopenia might be consumptive -peripheral smear, fibinogen as above -may need heme consult with both clotting issues and now bleeding complications #hyponatremia Na 133. chronic typically between 130-133 #moderate AI, TR. Normal LVEF mildly dilated RV 02/2023 #chronic prednisone 5 mg for PMR, fibromyalgia #chronically elevated HS-troponin probably being caused by her severe pulmonary hypertension nonspecific potentially ischemic changes on EKG, unknown whether underlying CAD - reviewed recent cardiology clinic notes and no mention of CAD -TTE #slight elevation of bilirubin and AST - monitor. Nothing notable on CT A/P with contrast. Bilirubin probably related to hematomas #CKD-3 -Cr is stable at baseline #AYE intolerant of CPAP. Has been trying to get sleep study but keeps getting sick with various acute issues. Used to be on 2L nocturnal O2 but not recently #splenic lesions - has had lymphadenopathy as well in the past and seen by [facility] oncology #constipation with overflow incontinence - bid miralax #weakness - start PT/OT when hematomas stable admissions this year - October, last week She prefers DNR/DNI DVT ppx - as discussed above. INR 1.6 today. Follow daily. Will need to start at least ppx dose soon. Subtherapeutic coumadin might be the best short term approach History of Present Illness Chief Complaint: weak and can't walk Primary Care Provider: Gege Alexis MD 84 y/o with history of PE's on coumadin who was recently hospitalized for E. coli UTI and rhinovirus/enterovirus, discharged home yesterday. During that admission she completed antibiotics with 7 days of rocephin for UTI and also course of azithromycin. She was diuresed a little and went home on oxygen, which is new for her. Today she was brought in by EMS after she was so weak family had trouble getting her to the bathroom. She continues to have cough productive of yellow sputum this seems relatively unchanged to slightly improved. She doesn't feel short of breath but is more hypoxic. She has chronic chest wall pain from fibromyalgia unchanged. She's had L groin pain since prior to previous admission without any injury/trauma. Now with severe ecchymosis from left groin tracking down leg that is dark purple some yellowing. The right abdominal bruising didn't start until after the lovenox shots given in hospital. She remains constipated. Some additional history is provided by her granddaughter at bedside. In ED treated for sepsis - Febrile to 39.6, HR 87-110, BP soft 84/42-114/66 though similar to last admission, requiring 3L O2 CTA chest with chronic PEs and bilateral upper lobe GGOs. CT abdomen notable for subacute hematoma L pectineus and worsening hematoma of right internal obliques increased from 2.4x1 cm --> 7.2x2.4 cm Chronic pancytopenia, Hg down about 1 point compared to a week ago. Mild Tn elevation. Procal negative at <0.2 2L IV crystalloid, IV cefepime, MRSA nares negative so MRSA coverage deferred Allergies Allergy/AdvReac Type Severity Reaction Status Date / Time aspirin Allergy Intermediate GI UPSET Verified 02/08/25 16:25 codeine Allergy Intermediate GI UPSET Verified 02/08/25 16:25 erythromycin base Allergy Intermediate GI UPSET Verified 02/08/25 16:25 Home Medications Medication Instructions Recorded Confirmed Type multivitamin 1 tab PO QAM 06/10/18 02/08/25 History latanoprost 0.005 % eye drops 1 drops OPB QPM 03/03/19 02/08/25 History dorzolamide 22.3 mg-timolol 6.8 1 drp OPB BID 10/07/20 02/08/25 History mg/mL eye drops zinc sulfate 25 mg zinc (110 mg) 25 mg PO QAM 12/11/20 02/08/25 History tablet (Orazinc) furosemide 20 mg tablet 20 mg PO QAM 09/18/21 02/08/25 History magnesium 250 mg tablet 250 mg PO QAM 09/23/21 02/08/25 History cholecalciferol (vitamin D3) 25 100 mcg PO QAM 11/10/21 02/08/25 History mcg (1,000 unit) tablet (Vitamin D3) fexofenadine 180 mg tablet 180 mg PO QAM 01/20/23 02/08/25 History artificial tears(hypromellose) 0.3 1 drp OPR BID 03/05/23 02/08/25 History % eye gel (Systane Gel) docusate sodium 100 mg capsule 100 mg PO QAM PRN Constipation 03/05/23 02/08/25 History peg 400-propylene glycol 0.4 %-0.3 1 drp OPL BID 03/05/23 02/08/25 History % eye drops (Systane Ultra) trazodone 100 mg tablet 50 mg PO QPM 03/05/23 02/08/25 History tramadol 50 mg tablet 50 mg PO AMHS PRN pain #60 tabs 11/20/23 02/08/25 Rx Breo Ellipta 100 mcg-25 mcg/dose 1 inh inhalation QPM #60 ea 12/28/23 02/08/25 Rx powder for inhalation (fluticasone furoate-vilanterol) albuterol sulfate 90 mcg/actuation 2 puff inhalation Q4H PRN 05/17/24 02/08/25 Rx aerosol inhaler shortness of breath or wheezing #1 inhaler acetaminophen 500 mg tablet 500 mg PO DAILY PRN Pain 06/22/24 02/08/25 History gabapentin 300 mg capsule 300 mg PO BID 11/14/24 02/08/25 History prednisone 5 mg tablet 5 mg PO DAILY 11/14/24 02/08/25 History pantoprazole 40 mg tablet,delayed 40 mg PO BID 90 days #180 tabs 11/24/24 02/08/25 Rx release warfarin 2 mg tablet 2 mg PO DAILY 12/02/24 02/08/25 History levothyroxine 75 mcg tablet 75 mcg PO DAILYBB #90 tabs 12/20/24 02/08/25 Rx topiramate 50 mg tablet 50 mg PO BID #60 tabs 01/05/25 02/08/25 Rx duloxetine 60 mg capsule,delayed 120 mg PO QAM 01/30/25 02/08/25 History release famotidine 20 mg tablet 20 mg PO HS 01/30/25 02/08/25 History montelukast 10 mg tablet 10 mg PO HS 01/30/25 02/08/25 History benzonatate 100 mg capsule 100 mg PO TID PRN cough #30 caps 02/07/25 02/08/25 Rx dextromethorphan-guaifenesin 5 10 ml PO Q6H PRN cough #100 mL 02/07/25 02/08/25 Rx mg-100 mg/5 mL oral liquid (Robitussin Cough-Chest Congestion DM) Past Med/Surg History Problem List Pancytopenia (Acute) Elevated troponin I level (Acute) Acute on chronic respiratory failure (Acute) Pneumonia (Acute) Acidosis, lactic (Acute) Intramuscular hematoma (Acute) Sepsis (Acute) Intramuscular hematoma Acute bronchitis due to Rhinovirus Asthma exacerbation Thrombocytopenia Hypotension Sepsis Constipation (Acute) Acute UTI (Acute) Elevated troponin (Acute) LLQ abdominal pain (Acute) Headache (Chronic) Flatulence Acute metabolic encephalopathy Subtherapeutic international normalized ratio (INR) Hyponatremia Chronic sinusitis, unspecified Globus sensation Nasal vestibulitis Bilateral otitis externa Excessive daytime sleepiness Recurrent pulmonary emboli Raynauds disease Anticoagulant long-term use Anticoagulated on Coumadin Bilateral pulmonary embolism (Acute) Arthritis Glaucoma (Chronic) Current chronic use of systemic steroids (Chronic) Hearing difficulty (Chronic) IFG (impaired fasting glucose) (Chronic) Incomplete bladder emptying (Chronic) Migraine (Chronic) Moderate aortic insufficiency (Chronic) Osteoporosis, 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) Urethral stricture (Chronic) 3-vessel coronary artery disease Endometriosis Allergic rhinitis Cervicogenic headache Adult situational stress disorder Cerebrovascular disease Chronic fatigue syndrome with fibromyalgia AYE (obstructive sleep apnea) Traumatic open wound of left lower leg with delayed healing (Acute) Bile duct obstruction Anemia Choledocholithiasis Anxiety and depression Polymyalgia rheumatica Chronic venous insufficiency (Chronic) Balance disorder Neck pain Rosacea History of diverticulosis Nocturnal hypoxemia Medical marijuana use History of GI bleed History of pulmonary embolus (PE) 01/2022--on xarelto--following with Dr. Brenden Guillaume at [facility] for suspect chronic thromboembolic pulmonary HTN History of COVID-19 01/2022--hospitalized @ [facility]--no symptoms now IBS (irritable bowel syndrome) Pulmonary hypertension Severe per 07/2021 ECHO- PASP 79mmHg--following with [facility] Fibromyalgia (Chronic) GERD (gastroesophageal reflux disease) (Chronic) Hypothyroid Asthma (Chronic) SOB with exertion--uses breo inhaler daily and rescue inhaler prn Chronic insomnia (Chronic) Medical History On home oxygen therapy 2 L N/C at hs Sleep apnea Not currently using Bipap--awaiting new machine--using 2L of oxygen at HS Chronic venous insufficiency Pulmonary nodule Currently under observation History of migraine History of gastric ulcer Aortic valve insufficiency Moderate per 07/[address] 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, reports no residual deficits, no issues since Surgical History History of colonoscopy S/P ERCP multiple---11/08/21 and 01/31/22 @ [facility] H/O tubal ligation S/P cataract surgery History of esophagogastroduodenoscopy (EGD) (~2011) History of orthopedic surgery rhizotomy- pt unsure about this H/O sinus surgery History of lumbar laminectomy 2000 History of hysterectomy with unilateral oopherectomy- 1978 History of cholecystectomy Family History Mother Diabetes Ovarian cancer Hypertension Kidney disease Father Diabetes Cardiac disorder Hypertension Stroke Alcohol abuse Other specified hearing loss, bilateral Aunt Breast cancer Brother Cancer Alcohol abuse Daughter , peritonitis Alcohol abuse Anxiety Dementia Family/Other Depression Anxiety Other No significant family history Denies family history of Colorectal cancer Social History Smoking Status: Never smoker Second Hand Exposure: No; Do You Dip or Chew Tobacco: No; Hx Alcohol Use: No Hx Substance Use: No Preferred Language: [place] Citizen Communication Ability: Effective Visual Impairment: Limited Hearing Ability: Hard of Hearing [place] Required: No Beliefs That Will Affect Care: None marital status: / Current Living Situation: Family Current Living Situation Comment: Lives with 2 great grandchildren current occupational status: retired How many Children do You have: 1 Feels Safe at Home: Yes Childhood Exposure to Second-Hand Smoke: No Diet: regular caffeine: No during the past year weight has: decreased > 10 lbs Dental Care, Regularly: Yes Physical Activity Frequency: 1-2 Times per Week Seatbelt Use: always Sunscreen Use: Yes Assistive Devices: CPAP and Hearing Aid - Left Review of Systems 2 Review of Systems: All systems reviewed & are unremarkable except as noted in HPI & below Physical Exam 2 Physical Exam: Last 24h vitals reviewed GEN: no acute distress, sitting in bed, frail appearing and pale HEENT: pupils equal, sclerae anicteric, moist MM RESP: normal WOB, CTAB not wheezing not currently coughing CV: reg systolic murmur ABD: soft/nt/nd +BT. Right lower abdominal wall swelling and diffuse ecchymosis. Not very tender : joel with clear yellow urine SKIN: warm and dry, no generalized rashes EXT: bilateral LE 2-3+ pitting edema. LLE currently in YULIET wrap placed in ED because of weeping edema. Mildly tender and full L groin with ecchymosis in groin area and tracking down the thigh NEURO: AOx person, place, and situation. Vague on details and some [place]. Face symmetric, speech normal, moves 4 ext spontaneously and equally Results & Data Results & Data Vital Signs (Past 12 Hours) Vital Signs Temp Pulse Pulse Resp BP BP BP 02/08/25 17:37 38.3 C H 92 H 23 84/42 L 02/08/25 17:32 95 H 83/38 L 02/08/25 17:31 38.3 C H 02/08/25 17:18 95 H 21 91/58 L 02/08/25 17:00 98/49 L 02/08/25 16:55 89/45 L 02/08/25 16:21 87 20 96/47 L 02/08/25 16:15 39 C H 89 19 99/52 L 02/08/25 15:45 96 H 23 107/56 L 02/08/25 15:40 39.6 C H 101 H 20 02/08/25 15:33 114/66 02/08/25 15:05 92 H 21 113/60 02/08/25 14:56 02/08/25 14:56 110 H 22 02/08/25 14:45 105 H 21 103/52 L 02/08/25 14:32 02/08/25 14:32 37.2 C 110 H 22 110/52 L 02/08/25 14:32 98 H 02/08/25 14:30 100 H 20 110/52 L Pulse Ox O2 Del Method O2 Flow Rate 02/08/25 17:37 94 Nasal Cannula 3 02/08/25 17:32 94 Room Air 02/08/25 17:31 02/08/25 17:18 92 Nasal Cannula 3 02/08/25 17:00 02/08/25 16:55 02/08/25 16:21 94 Nasal Cannula 3 02/08/25 16:15 93 Nasal Cannula 3 02/08/25 15:45 93 Nasal Cannula 3 02/08/25 15:40 92 Nasal Cannula 3 02/08/25 15:33 02/08/25 15:05 95 Nasal Cannula 3 02/08/25 14:56 93 Nasal Cannula 3 02/08/25 14:56 93 Nasal Cannula 3 02/08/25 14:45 93 Nasal Cannula 3 02/08/25 14:32 Nasal Cannula 3 02/08/25 14:32 93 Nasal Cannula 3 02/08/25 14:32 02/08/25 14:30 93 Nasal Cannula 3 Laboratory Results 02/08/25 14:42 BMP still pending Pct 0.17 Lactate 3.0-->2.8 Tn 38.7 --> 42. Reviewed old records and HS-troponin is chronically elevated ranging from 22-100 back to 2021. Personally reviewed films of CTA chest and CT abdomen/pelvis. Agree with radiologist interpretation. Notably there were bilateral apical GGOs on last CTA a few months ago, but these are in a different location more prominent and dominant on the L side which is different EKG - personally reviewed tracing - sinus tachy, pac, pvc, inferior STIs, lateral nonspecific ST changes PG Care Time/CCT Total # of Minutes Spent Total Time Spent with Patient: Total time spent is greater than 50% in coordination of care (as documented) at patient's floor/unit and/or counseling patient: Coding Level of Care Code 52217 INT INP/OBS CARE 3/75MIN Diagnoses Sepsis A41.9 Recurrent pulmonary emboli I26.99 Anticoagulant long-term use Z79.01 Intramuscular hematoma T14.8XXA Aortic valve insufficiency I35.1
[2025-02-08 18:53] LABS: Anion Gap 7.0 (3-11); Calcium 7.2 mg/dl (8.6-10.3); Carbon Dioxide 27.0 mmol/L (21-32); Chloride 97.0 mmol/L (98-107); Potassium 3.5 mmol/L (3.5-5.1); Sodium 131.0 mmol/L (136-145)
[2025-02-08 18:59] LABS: Blood Urea Nitrogen 18.0 mg/dl (6-23); Creatinine Clr Calc Pharmacy 40.7 ml/min; Glucose 137.0 mg/dl (70-99(Fasting))
[2025-02-08 19:35] LABS: Chlamydia pneumoniae PCR Not Detected (NotDetected); Coronavirus 229E PCR Not Detected (NotDetected); Coronavirus CoV-2 (COVID19)PCR Not Detected (NotDetected); Coronavirus HKU1 PCR Not Detected (NotDetected); Coronavirus NL63 PCR Not Detected (NotDetected); Coronavirus OC43PCR Not Detected (NotDetected); Human Metapneumovirus PCR Not Detected (NotDetected); Parainfluenza Virus 1 PCR Not Detected (NotDetected); Parainfluenza Virus 2 PCR Not Detected (NotDetected); Parainfluenza Virus 3 PCR Not Detected (NotDetected); Parainfluenza Virus 4 PCR Not Detected (NotDetected); Respiratory Syncytial VirusPCR Not Detected (NotDetected); Rhinovirus/Enterovirus PCR DETECTED (NotDetected)
[2025-02-08] MEDS: HYDROCORTISONE SOD SUCCINATE 100 MG/2 ML VIAL IV STA (19:53)
[2025-02-08] MEDS: LACTATED RINGER'S 500 ML IV ONE (20:29)
[2025-02-08 22:20] LABS: Lyme Screen Rflx Confirmation Negative (Negative)
[2025-02-08] MEDS ORDERED: MAGNESIUM HYDROXIDE SUSP 30 ML UDC PO PRN (23:37)
[2025-02-08] MEDS ORDERED: ALBUTEROL HFA 8 GM INHALER INH PRN (23:37)
[2025-02-08] MEDS ORDERED: ALUMINUM/MAGNESIUM SUSP 30 ML UDC PO PRN (23:37)
[2025-02-08 23:54] LABS: Fibrinogen 212 mg/dl (184-400)
[2025-02-09] MEDS ORDERED: HYDROCORTISONE SOD SUCCINATE 100 MG/2 ML VIAL IV SCH (01:00)
[2025-02-09] MEDS: HYDROCORTISONE SOD 50 MG in SYRINGE 0 ML IV SCH (01:22)
[2025-02-09] MEDS: FLUTICASONE/VILANTEROL 100/25MCG 14 PUFFS/INHALER INH SCH (01:23)
[2025-02-09] MEDS: DORZOLAMIDE/TIMOLOL 22.3/6.8MG/ML 10 ML BTL OPB SCH (01:24)
[2025-02-09] MEDS: LATANOPROST 0.005% OP SOLN 2.5 ML BTL OPB SCH (01:24)
[2025-02-09] MEDS: POLYETHYLENE (MIRALAX) 17 GM PACK PO SCH (01:24)
[2025-02-09] MEDS: GABAPENTIN 300 MG CAP PO SCH (01:26)
[2025-02-09] MEDS: TOPIRAMATE 50 MG TAB PO SCH (01:26)
[2025-02-09] MEDS: MONTELUKAST SODIUM 10 MG TABLET PO SCH (01:26)
[2025-02-09] MEDS: FAMOTIDINE 20 MG TAB PO SCH (01:26)
[2025-02-09] MEDS: MELATONIN 3 MG TAB PO PRN (01:30)
[2025-02-09] MEDS: CEFEPIME 2000MG 2,000 MG/20 ML SYR IV SCH (04:17)
[2025-02-09] MEDS: LEVOTHYROXINE SODIUM 75 MCG TABLET PO SCH (06:33)
[2025-02-09 06:51] LABS: Hematocrit (blood only) 25.0 % (37.0-47.0); Hemoglobin 8.6 g/dl (12.0-16.0); Mean Corpuscular Hemoglobin 32.8 pg (25.0-34.0); Mean Corpuscular Volume 95.4 fL (80.0-100.0); Platelet Count 68 K/uL (130-400); RDW Standard Deviation 61.3 fL (36.4-46.3); Red Blood Count 2.62 M/uL (4.20-5.40); White Blood Count 2.37 K/ul (4.8-10.8)
[2025-02-09 06:56] LABS: INR 1.3 (0.9-1.1); Prothrombin Time 13.7 Seconds (9.0-12.0)
[2025-02-09 06:58] LABS: Anion Gap 6.0 (3-11); Blood Urea Nitrogen 16.0 mg/dl (6-23); Calcium 7.2 mg/dl (8.6-10.3); Carbon Dioxide 29.0 mmol/L (21-32); Chloride 100.0 mmol/L (98-107); Creatinine Clr Calc Pharmacy 52.5 ml/min; Glucose 239.0 mg/dl (70-99(Fasting)); Potassium 3.5 mmol/L (3.5-5.1); Sodium 135.0 mmol/L (136-145)
[2025-02-09 07:23] LABS: Immature Granulocytes # (auto) 0.09 K/uL (0.01-0.20); Immature Granulocytes % (auto) 3.8 %
[2025-02-09 07:47] LABS: A calco-baum cmplx NotReported Not Detected (NotDetected); Bact fragilis Not Reported Not Detected (NotDetected); Blood Culture Id Panel See PCR Comment (NotDetected); C auris Not Reported Not Detected (NotDetected); Calbicans Not Reported Not Detected (NotDetected); Candida glabrata Not Reported Not Detected (NotDetected); Candida krusei Not Reported Not Detected (NotDetected); Cneoformans/gatti Not Reported Not Detected (NotDetected); Cparapsilosis Not Reported Not Detected (NotDetected); Ctropicalis Not Reported Not Detected (NotDetected); E cloacae compx Not Reported Not Detected (NotDetected); Efaecalis Not Reported Not Detected (NotDetected); Efaecium Not Reported Not Detected (NotDetected); Enterobacterales Not Reported Not Detected (NotDetected); Escherichia coli Not Reported Not Detected (NotDetected); H influenzae Not Reported Not Detected (NotDetected); K aerogenes Not Reported Not Detected (NotDetected); Koxytoca Not Reported Not Detected (NotDetected); Kpneumoniae grp Not Reported Not Detected (NotDetected); Lmonocyt Not Reported Not Detected (NotDetected); N meningitidis Not Reported Not Detected (NotDetected); P aeruginosa Not Reported Not Detected (NotDetected); Proteus spp Not Reported Not Detected (NotDetected); Salmonella spp Not Reported Not Detected (NotDetected); Staph lugdunensis Not Reported Not Detected (NotDetected); Staph spp. Not Reported Not Detected (NotDetected); Staphaureus Not Reported Not Detected (NotDetected); Staphepi Not Reported Not Detected (NotDetected); Stenmaltophilia Not Reported Not Detected (NotDetected); Strep agal(GrpB) Not Reported Not Detected (NotDetected); Strep pneum Not Reported Not Detected (NotDetected); Strep pyog (GrpA) Not Reported Not Detected (NotDetected); Strep spp Not Reported DETECTED (NotDetected)
[2025-02-09 07:54] LABS: Streptococcus spp DETECTED (NotDetected)
[2025-02-09] MEDS: MULTIVITAMIN TAB PO SCH (08:33)
[2025-02-09] MEDS: MAGNESIUM OXIDE 400 MG TAB PO SCH (08:34)
[2025-02-09] MEDS: FEXOFENADINE HCL 180 MG TAB PO SCH (08:34)
[2025-02-09] MEDS: CHOLECALCIFEROL 25 MCG (1000 UNITS) TAB PO SCH (08:34)
[2025-02-09] MEDS: ARTIFICIAL TEARS OP SCH (08:36)
[2025-02-09 08:41] LABS: Partial Thromboplastin Time 36 Seconds (21-31)
[2025-02-09] MEDS ORDERED: ZINC SULFATE PO SCH (09:00)
--- NOTE | 2025-02-09 09:46 | Hospitalist Progress Note ---
Date of Service February 09, 2025 Assessment & Plan (1) Sepsis: (2) Recurrent pulmonary emboli: (3) Anticoagulant long-term use: (4) Intramuscular hematoma: (5) Aortic valve insufficiency: Plan 84 y/o with history of PE's on coumadin, severe pulmonary hypertension and valvular heart disease who was recently hospitalized for E. coli UTI and rhinovirus/enterovirus, discharged home yesterday. During that admission she completed antibiotics with 7 days of rocephin for UTI and also course of azithromycin. She was diuresed a little and went home on oxygen, which is new for her. Admitted today with sepsis, worsened hypoxia and bilateral upper lobe GGOs on CTA. She also has extensive ecchymoses of right lower abdominal wall and left groin/thigh tracking down leg with intramuscular hematomas on CT. #sepsis due to suspected pneumonia #positive blood culture 1 bottle - strep by molecular - on appropriate coverage await speciation, could be contaminant #hypotension - chronic, but was worse than baseline procalcitonin negative x 2 and just completed 7 days ceftriaxone and also azithromycin so if pneumonia may be resistant organism. Chest CT changes could also reflect her previously known viral infection or a treated pneumonia. Treating for HAP with cefepime. MRSA nares negative, hold off on MRSA coverage. Recently had rhinovirus/enterovirus bronchitis. Biofire negative excepting the known rhinovirus/enterovirus -cefepime for possible HAP -random cortisol was 11 - cont stress dose hydrocortisone -CBC/diff and BMP reviewed, unremarkable with the worsening hypoxia and hypotension she could also have heart failure and/or worsening pulmonary hypertension - TTE pending #intramuscular hematomas - coagulopathy from coumadin as well as thrombocytopenia. PTT is also elevated, fibrinogen normal #chronic warfarin anticoagulation for recurrent PE, recurred on DOAC #severe pulmonary hypertension - f/b pulmonary at [facility] - thromboembolic + AYE -L pectineus hematoma seems to preexist the recent previous admission, the R oblique hematoma could be related to enoxaparin injection site -INR subtherapeutic at 1.6-->1.3. hematomas stable, mild drop in Hg but expect dilutional. Warfarin 2 mg x 1 today. AM INR. Not bridging but may need to if INR falls further -rock and a hard place with pathologic bleeding and significant clotting tendency #pancytopenia - new anemia, thrombocytopenia since 01/30/25, leukopenia since at least 10/2024 -anemia may be related to acute blood loss anemia from the hematomas, thrombocytopenia might be consumptive -peripheral smear pending -iron studies #hyponatremia Na 133-->135. chronic typically between 130-133 #moderate AI, TR. Normal LVEF mildly dilated RV 02/2023 -TTE #chronic prednisone 5 mg for PMR, fibromyalgia #chronically elevated HS-troponin probably being caused by her severe pulmonary hypertension nonspecific potentially ischemic changes on EKG, unknown whether underlying CAD - reviewed recent cardiology clinic notes and no mention of CAD -TTE #slight elevation of bilirubin and AST - monitor. Nothing notable on CT A/P with contrast. Bilirubin probably related to hematomas #CKD-3 -Cr is stable at baseline #AYE intolerant of CPAP. Has been trying to get sleep study but keeps getting sick with various acute issues. Used to be on 2L nocturnal O2 but not recently #splenic lesions - has had lymphadenopathy as well in the past and seen by [facility] oncology #constipation with overflow incontinence - bid miralax, PRN dulcolax #weakness - start PT/OT #LLE skin tear - consulted [facility] admissions this year - October, last week She prefers DNR/DNI DVT ppx - as discussed above. Subtherapeutic INR with coumadin for a few days might be the best short term approach Admission and Anticipated Discharge Date Admission Date: February 08, 2025 Subjective Coughing a lot this am so its hard for her to talk Looks improved wrt BP/HR and stronger No change in hematomas Physical Exam 2 Physical Exam: Last 24h vitals reviewed GEN: sitting in bed awake, coughing a lot but not expectorating HEENT: pupils equal, sclerae anicteric, moist MM RESP: normal WOB, diminished, faint upper lobe crackles and scattered coarse sounds CV: reg systolic murmur ABD: soft/nt/nd +BT. Right lower abdominal wall swelling and diffuse ecchymosis. Unchanged : joel with clear yellow urine SKIN: warm and dry, no generalized rashes LLE skin tear on urbina - currently still wrapped in YULIET EXT: bilateral LE 2-3+ pitting edema. Mildly tender and full L groin with ecchymosis in groin area and tracking down the thigh - unchanged NEURO: AOx person, place, and situation. Vague on details and some [place]. Face symmetric, speech normal, moves 4 ext spontaneously and equally Results & Data Results & Data Vital Signs (Past 12 Hours) Vital Signs Temp Pulse Pulse Resp BP BP Pulse Ox 02/09/25 07:50 36.5 C 76 16 95/54 L 97 02/09/25 03:05 36.7 C 85 20 90/67 L 95 02/08/25 23:30 02/08/25 23:22 85 02/08/25 23:15 36.6 C 79 14 94/58 L 94 02/08/25 22:00 37.5 C 83 24 99/54 L 97 O2 Del Method O2 Flow Rate 02/09/25 07:50 Nasal Cannula 2 02/09/25 03:05 Nasal Cannula 3 02/08/25 23:30 Nasal Cannula 3 02/08/25 23:22 02/08/25 23:15 Nasal Cannula 2 02/08/25 22:00 Nasal Cannula 3 Laboratory Results 02/09/25 06:15 02/09/25 06:15 INR 1.3 PTT 36 fibrinogen 212 Random cortisol - early evening - 11 Procal - 0.19-->0.2 Micro - gpc in clustures, strep by molecular PG Care Time/CCT Total # of Minutes Spent Total Time Spent with Patient: Total time spent is greater than 50% in coordination of care (as documented) at patient's floor/unit and/or counseling patient: Coding Level of Care Code 11214 SUB INP/OBS CARE 3/50MIN Diagnoses Sepsis A41.9 Recurrent pulmonary emboli I26.99 Anticoagulant long-term use Z79.01 Intramuscular hematoma T14.8XXA Aortic valve insufficiency I35.1
[2025-02-09] MEDS: ONDANSETRON INJ 2 MG/ML 2 ML VIAL IV PRN (13:10)
[2025-02-09] MEDS: ACETAMINOPHEN 325 MG TAB PO PRN (14:45)
[2025-02-09] MEDS: WARFARIN SOD 2 MG TAB PO ONE (16:11)
[2025-02-09 17:50] LABS: Folate (Folic Acid),Ser orPlas > 22.30 ng/ml (>5.38)
[2025-02-09 17:51] LABS: Vitamin B12 643 pg/ml (180-914)
--- NOTE | 2025-02-09 18:01 | Oncology Consultation ---
Date of Consultation February 09, 2025 Assessment & Plan (1) Pancytopenia: (2) Acute on chronic respiratory failure: (3) Pneumonia: (4) Intramuscular hematoma: Plan 84-year-old female admitted for fatigue with blood cultures revealing gram- positive cocci in clusters, hematology was consulted for pancytopenia which was initially noticed during previous admission earlier this month. -Pancytopenia likely multifactorial secondary to medication, infection. Anemia secondary to bleeding. No evidence of TTP/HUS on peripheral smear. Also no concern for HIT at this time since thrombocytopenia was present before she received Lovenox. Patient had previously been on Topamax 50 mg p.o. daily but dose was recently increased to 50 mg p.o. twice daily on 01/05/2025 for headaches. Although pancytopenia is rare with Topamax since this was the only major change made in medications, would recommend considering holding Topamax for now to see if pancytopenia improves. Also recommend checking B12, folate, iron studies to rule out nutritional deficiencies. If pancytopenia does not im prove with treating infections and holding Topamax, would consider obtaining a bone marrow biopsy at that time to rule out infection. -Hematomas likely secondary to thrombocytopenia and anticoagulation. Recommend holding off on restarting anticoagulation until hematomas have improved. Would recommend starting with low-dose heparin when hematomas have improved and increasing to full dose anticoagulation if well-tolerated. Patient usually follows with my colleague Dr. Frost in hematology clinic. She is scheduled to see him again in April,. If cytopenias do not improve, would recommend she follow-up with him to discuss bone marrow biopsy. History of Present Illness Reason for Consultation: pancytopenia, abnormal bleeding, chronic anticoagu Attending Physician: Rosemary Raymundo MD History of Present Illness 84-year-old female with medical history significant for CVA, polymyalgia rheumatica on chronic prednisone, bilateral PE on chronic anticoagulation with Coumadin. Patient was admitted to [facility] from 01/30/2025 to 02/06/2025 for UTI, bronchitis. On admission, shows pancytopenic with WBC of 3.3, hemoglobin 11.2, hematocrit 32.3, platelet count of 62,000. She was treated with IV antibiotics and subsequently discharged home on 02/06/2025 with WBC of 2.2, hemoglobin 9.6, hematocrit 28.9 and platelet count of 83,000. During admission that admission, she received Lovenox due to subtherapeutic INR and was discharged home on Coumadin. Was readmitted on 02/08/2025 with fatigue, abdominal bruising and generalized weakness. Labs revealed WBC of 3.15, hemoglobin 9.3, hematocrit 28.5 and platelet count of 72,000. PT was 13.7, INR 1.3 and APTT of 36. Fibrinogen was 212. CTA chest revealed ground glass opacities in both upper lobes possibly pneumonia. CT abdomen and pelvis rev ealed interval worsening of heterogeneous enlargement of the right internal oblique muscle which could be intramuscular hemorrhage, new suspected subacute hemorrhage within left pectineus muscle.Blood culture x 1 revealed gram-positive cocci in clusters Allergies Allergy/AdvReac Type Severity Reaction Status Date / Time aspirin Allergy Intermediate GI UPSET Verified 02/08/25 16:25 codeine Allergy Intermediate GI UPSET Verified 02/08/25 16:25 erythromycin base Allergy Intermediate GI UPSET Verified 02/08/25 16:25 Home Medications Medication Instructions Recorded Confirmed Type multivitamin 1 tab PO QAM 06/10/18 02/08/25 History latanoprost 0.005 % eye drops 1 drops OPB QPM 03/03/19 02/08/25 History dorzolamide 22.3 mg-timolol 6.8 1 drp OPB BID 10/07/20 02/08/25 History mg/mL eye drops zinc sulfate 25 mg zinc (110 mg) 25 mg PO QAM 12/11/20 02/08/25 History tablet (Orazinc) furosemide 20 mg tablet 20 mg PO QAM 09/18/21 02/08/25 History magnesium 250 mg tablet 250 mg PO QAM 09/23/21 02/08/25 History cholecalciferol (vitamin D3) 25 100 mcg PO QAM 11/10/21 02/08/25 History mcg (1,000 unit) tablet (Vitamin D3) fexofenadine 180 mg tablet 180 mg PO QAM 01/20/23 02/08/25 History artificial tears(hypromellose) 0.3 1 drp OPR BID 03/05/23 02/08/25 History % eye gel (Systane Gel) docusate sodium 100 mg capsule 100 mg PO QAM PRN Constipation 03/05/23 02/08/25 History peg 400-propylene glycol 0.4 %-0.3 1 drp OPL BID 03/05/23 02/08/25 History % eye drops (Systane Ultra) trazodone 100 mg tablet 50 mg PO QPM 03/05/23 02/08/25 History tramadol 50 mg tablet 50 mg PO AMHS PRN pain #60 tabs 11/20/23 02/08/25 Rx Breo Ellipta 100 mcg-25 mcg/dose 1 inh inhalation QPM #60 ea 12/28/23 02/08/25 Rx powder for inhalation (fluticasone furoate-vilanterol) albuterol sulfate 90 mcg/actuation 2 puff inhalation Q4H PRN 05/17/24 02/08/25 Rx aerosol inhaler shortness of breath or wheezing #1 inhaler acetaminophen 500 mg tablet 500 mg PO DAILY PRN Pain 06/22/24 02/08/25 History gabapentin 300 mg capsule 300 mg PO BID 11/14/24 02/08/25 History prednisone 5 mg tablet 5 mg PO DAILY 11/14/24 02/08/25 History pantoprazole 40 mg tablet,delayed 40 mg PO BID 90 days #180 tabs 11/24/24 Rx release warfarin 2 mg tablet 2 mg PO DAILY 12/02/24 02/08/25 History levothyroxine 75 mcg tablet 75 mcg PO DAILYBB #90 tabs 12/20/24 02/08/25 Rx topiramate 50 mg tablet 50 mg PO BID #60 tabs 01/05/25 02/08/25 Rx duloxetine 60 mg capsule,delayed 120 mg PO QAM 01/30/25 02/08/25 History release famotidine 20 mg tablet 20 mg PO HS 01/30/25 02/08/25 History montelukast 10 mg tablet 10 mg PO HS 01/30/25 02/08/25 History benzonatate 100 mg capsule 100 mg PO TID PRN cough #30 caps 02/07/25 02/08/25 Rx dextromethorphan-guaifenesin 5 10 ml PO Q6H PRN cough #100 mL 02/07/25 02/08/25 Rx mg-100 mg/5 mL oral liquid (Robitussin Cough-Chest Congestion DM) Patient History Medical History On home oxygen therapy 2 L N/C at hs Sleep apnea Not currently using Bipap--awaiting new machine--using 2L of oxygen at HS Chronic venous insufficiency Pulmonary nodule Currently under observation History of migraine History of gastric ulcer Aortic valve insufficiency Moderate per 07/[address] 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, reports no residual deficits, no issues since Surgical History History of colonoscopy S/P ERCP multiple---11/08/21 and 01/31/22 @ [facility] H/O tubal ligation S/P cataract surgery History of esophagogastroduodenoscopy (EGD) (~2011) History of orthopedic surgery rhizotomy- pt unsure about this H/O sinus surgery History of lumbar laminectomy 2000 History of hysterectomy with unilateral oopherectomy- 1978 History of cholecystectomy Family History Mother Diabetes Ovarian cancer Hypertension Kidney disease Father Diabetes Cardiac disorder Hypertension Stroke Alcohol abuse Other specified hearing loss, bilateral Aunt Breast cancer Brother Cancer Alcohol abuse Daughter , peritonitis Alcohol abuse Anxiety Dementia Family/Other Depression Anxiety Other No significant family history Denies family history of Colorectal cancer Social History Smoking Status: Never smoker Second Hand Exposure: No; Do You Dip or Chew Tobacco: No; Hx Alcohol Use: No Hx Substance Use: No Preferred Language: Ivorian Communication Ability: Effective Visual Impairment: Limited Hearing Ability: Hard of Hearing 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 Beliefs That Will Affect Care: None marital status: / Current Living Situation: Family Current Living Situation Comment: Lives with daughter and 2 grandchildren current occupational status: retired How many Children do You have: 1 Other Information That Helps Us Care for You: No Feels Safe at Home: Yes Safety Concerns: Feels Safe At This Time Childhood Exposure to Second-Hand Smoke: No Diet: regular caffeine: No during the past year weight has: decreased > 10 lbs Dental Care, Regularly: Yes Physical Activity Frequency: 1-2 Times per Week Seatbelt Use: always Sunscreen Use: Yes Assistive Devices: Cane and Walker Results & Data Vital Signs (Past 12 Hours) Vital Signs Temp Pulse Pulse Resp BP BP Pulse Ox 02/09/25 13:02 84 02/09/25 11:36 36.8 C 74 17 92/46 L 97 02/09/25 11:23 36.5 C 75 16 86/46 L 95 02/09/25 10:00 02/09/25 07:50 36.5 C 76 16 95/54 L 97 O2 Del Method O2 Flow Rate 02/09/25 13:02 02/09/25 11:36 Room Air 02/09/25 11:23 Nasal Cannula 3 02/09/25 10:00 Nasal Cannula 2 02/09/25 07:50 Nasal Cannula 2
[2025-02-09 18:59] LABS: Iron 77.0 mcg/dl (35-150); Total Iron Binding Cap Calc 225.0 mcg/dl (250-450); Transferrin 161.0 mg/dl (200-360); Transferrin (FE) Percent Satur 34.0 % (15-50)
[2025-02-09 19:19] LABS: Ferritin 1109.5 ng/ml (8-388)
[2025-02-10 07:14] LABS: INR 1.2 (0.9-1.1); Prothrombin Time 13.2 Seconds (9.0-12.0)
[2025-02-10] MEDS: TOPIRAMATE 25 MG TAB PO SCH (09:51)
[2025-02-10] MEDS: predniSONE 20 MG TAB PO SCH (09:57)
--- NOTE | 2025-02-10 18:33 | Hospitalist Progress Note ---
Date of Service February 10, 2025 Assessment & Plan (1) Sepsis: (2) Recurrent pulmonary emboli: (3) Anticoagulant long-term use: (4) Intramuscular hematoma: (5) Aortic valve insufficiency: Plan 84 y/o with history of PE's on coumadin, severe pulmonary hypertension and valvular heart disease who was recently hospitalized for E. coli UTI and rhinovirus/enterovirus, discharged home yesterday. During that admission she completed antibiotics with 7 days of rocephin for UTI and also course of azithromycin. She was diuresed a little and went home on oxygen, which is new for her. Admitted today with sepsis, worsened hypoxia and bilateral upper lobe GGOs on CTA. She also has extensive ecchymoses of right lower abdominal wall and left groin/thigh tracking down leg with intramuscular hematomas on CT. #sepsis due to suspected pneumonia. sepsis resolved. #positive blood culture 1 bottle - strep salivarus group - can be contaminant but is a potential cause of PNA. Should be susceptible to cephalosporins #hypotension - chronic, but was worse than baseline. BP improved and now at baseline #enterovirus/rhinovirus infection -cefepime for possible HAP -changed hydrocortisone to stress dose prednisone -TTE reviewed - unchanged from previous -AM CBC and BMP -remains high risk for clinical deterioration and medically complex but seems to be improving, hypoxia improved #intramuscular hematomas - coagulopathy from coumadin as well as thrombocytopenia. PTT is also slightly elevated, fibrinogen normal #chronic warfarin anticoagulation for recurrent PE, recurred on DOAC #severe pulmonary hypertension - f/b pulmonary at [facility] - thromboembolic + AYE -L pectineus hematoma seems to preexist the recent previous admission, the R oblique hematoma could be related to enoxaparin injection site -INR subtherapeutic at 1.6-->1.3-->1.2. hematomas stable. Warfarin 2 mg x 1 today. AM INR. Will not bridge. AM CBC -rock and a hard place with pathologic bleeding and significant clotting tendency #pancytopenia - new anemia, thrombocytopenia since 01/30/25, leukopenia since at least 10/2024 -anemia may be related to acute blood loss anemia from the hematomas, thrombocytopenia might be consumptive -peripheral smear reviewed - notably, no changes of sepsis or MDS -iron studies with inflammatory block, B12 643 and folate >22 -consulted Dr. Upton - discussed with her 02/09 - agrees with above, hold AC until hematomas stable, taper topamax in case causing cytopenias, follow up as scheduled with Dr. Frost, BMBx if nonresolving -AM CBC #hyponatremia Na 133-->135. chronic typically between 130-133 -AM BMP #moderate AI, TR. Normal LVEF mildly dilated RV 02/2023 -updated TTE unchanged from 2022 #chronic prednisone 5 mg for PMR, fibromyalgia - currently stress dose pred. With recent hospitalizations probably needs slow taper #chronically elevated HS-troponin probably being caused by her severe pulmonary hypertension nonspecific potentially ischemic changes on EKG, unknown whether underlying CAD - reviewed recent cardiology clinic notes and no mention of CAD -TTE without new changes #slight elevation of bilirubin and AST - monitor. Nothing notable on CT A/P with contrast. Bilirubin probably related to hematomas #CKD-3 -Cr is stable at baseline #AYE intolerant of CPAP. Has been trying to get sleep study but keeps getting sick with various acute issues. Used to be on 2L nocturnal O2 but not recently #splenic lesions - has had lymphadenopathy as well in the past and [facility] #constipation with overflow incontinence - bid miralax, PRN dulcolax. Had mod stool #weakness - start PT/OT - rec rehab #LLE skin tear - consulted [facility] admissions this year - October, last week She prefers DNR/DNI DVT ppx - as discussed above. Subtherapeutic INR with coumadin for a few days might be the best short term approach Admission and Anticipated Discharge Date Admission Date: February 08, 2025 Subjective up in chair feels a little better still with cough and dyspnea L groin pain unchanged, abd not painful no increase in swelling Physical Exam 2 Physical Exam: Last 24h vitals reviewed GEN: sitting in chair and looks stronger HEENT: pupils equal, sclerae anicteric, moist MM RESP: normal WOB, diminished, CTAB CV: reg systolic murmur ABD: soft/nt/nd +BT. Right lower abdominal wall swelling and diffuse ecchymosis. Unchanged 02/10 : joel with clear yellow urine SKIN: warm and dry, no generalized rashes LLE skin tear on urbina - dressed by [facility] EXT: bilateral LE 2-3+ pitting edema slightly improved. Mildly tender and full L groin with ecchymosis in groin area and tracking down the thigh and calf medially - unchanged 02/10 NEURO: AOx person, place, and situation. Vague on details and some YUHAAVIATAM. Face symmetric, speech normal, moves 4 ext spontaneously and equally Results & Data Results & Data Vital Signs (Past 12 Hours) Vital Signs Temp Pulse Pulse Resp BP BP Pulse Ox 02/10/25 15:17 36.8 C 83 21 109/59 L 96 02/10/25 13:10 78 02/10/25 12:24 97/59 L 02/10/25 11:52 37.3 C 90 25 H 87/51 L 76 L 02/10/25 09:00 02/10/25 08:09 36.4 C L 86 24 155/66 H 96 O2 Del Method O2 Flow Rate 02/10/25 15:17 Nasal Cannula 1 02/10/25 13:10 02/10/25 12:24 02/10/25 11:52 Nasal Cannula 4 02/10/25 09:00 Nasal Cannula 2 02/10/25 08:09 Nasal Cannula 4 Laboratory Results 02/09/25 06:15 02/09/25 06:15 PG Care Time/CCT Total # of Minutes Spent Total Time Spent with Patient: Total time spent is greater than 50% in coordination of care (as documented) at patient's floor/unit and/or counseling patient: Coding Level of Care Code 41142 SUB INP/OBS CARE 3/50MIN Diagnoses Sepsis A41.9 Recurrent pulmonary emboli I26.99 Anticoagulant long-term use Z79.01 Intramuscular hematoma T14.8XXA Aortic valve insufficiency I35.1
[2025-02-10] MEDS: WARFARIN SOD 2 MG TAB PO ONE (18:46)
[2025-02-10] MEDS: CHLORASEPTIC (PHENOL) 1.4% SOLN 180 ML BTL MT PRN (21:07)
[2025-02-11 06:49] LABS: INR 1.3 (0.9-1.1); Prothrombin Time 13.7 Seconds (9.0-12.0)
--- NOTE | 2025-02-11 07:32 | Electrocardiogram Report ---
Test Reason : Blood Pressure : */* mmHG Vent. Rate : 101 BPM Atrial Rate : 101 BPM P-R Int : 176 ms QRS Dur : 70 ms QT Int : 318 ms P-R-T Axes : 72 70 0 degrees QTcB Int : 412 ms Sinus tachycardia with Premature supraventricular complexes and with occasional Premature ventricular complexes Abnormal ECG When compared with ECG of 30-Jan-2025 16:35, Premature ventricular complexes are now Present Premature supraventricular complexes are now Present Nonspecific T wave abnormality now evident in Lateral leads Confirmed by Travis Ojeda [id number]) on 02/11/2025 7:32:34 AM Referred By: Confirmed By: Travis Ojeda
[2025-02-11 08:20] LABS: Hematocrit (blood only) 23.3 % (37.0-47.0); Hemoglobin 7.6 g/dl (12.0-16.0); Mean Corpuscular Hemoglobin 31.5 pg (25.0-34.0); Mean Corpuscular Volume 96.7 fL (80.0-100.0); Platelet Count 51 K/uL (130-400); RDW Standard Deviation 64.4 fL (36.4-46.3); Red Blood Count 2.41 M/uL (4.20-5.40); White Blood Count 2.16 K/ul (4.8-10.8)
[2025-02-11 08:26] LABS: Anion Gap 3.0 (3-11); Blood Urea Nitrogen 21.0 mg/dl (6-23); Calcium 7.6 mg/dl (8.6-10.3); Carbon Dioxide 30.0 mmol/L (21-32); Chloride 103.0 mmol/L (98-107); Creatinine Clr Calc Pharmacy 53.1 ml/min; Glucose 164.0 mg/dl (70-99(Fasting)); Magnesium 2.0 mg/dl (1.7-2.4); Potassium 3.3 mmol/L (3.5-5.1); Sodium 136.0 mmol/L (136-145)
[2025-02-11 09:49] LABS: Fibrinogen 174 mg/dl (184-400)
[2025-02-11] MEDS: POTASSIUM CHLORIDE CRTAB 20 MEQ TABCR PO STA (10:30)
--- NOTE | 2025-02-11 13:21 | Hospitalist Progress Note ---
Date of Service February 11, 2025 Assessment & Plan (1) Sepsis: (2) Recurrent pulmonary emboli: (3) Anticoagulant long-term use: (4) Intramuscular hematoma: (5) Aortic valve insufficiency: Plan 84 y/o with history of PE's on coumadin, severe pulmonary hypertension and valvular heart disease who was recently hospitalized for E. coli UTI and rhinovirus/enterovirus, discharged home yesterday. During that admission she completed antibiotics with 7 days of rocephin for UTI and also course of azithromycin. She was diuresed a little and went home on oxygen, which is new for her. Admitted today with sepsis, worsened hypoxia and bilateral upper lobe GGOs on CTA. She also has extensive ecchymoses of right lower abdominal wall and left groin/thigh tracking down leg with intramuscular hematomas on CT. #sepsis due to suspected pneumonia. sepsis resolved. #positive blood culture 1 bottle - strep salivarus group - can be contaminant but is a potential cause of PNA. Should be susceptible to cephalosporins #hypotension - chronic, but was worse than baseline. BP improved and now at baseline #enterovirus/rhinovirus infection -cefepime for HAP - much better -cont stress dose prednisone - wean after tomorrow -TTE reviewed - unchanged from previous -AM CBC and BMP reviewed -improved and may transfer to med/surg #intramuscular hematomas - coagulopathy from coumadin as well as thrombocytopenia. #chronic warfarin anticoagulation for recurrent PE, recurred on DOAC #severe pulmonary hypertension - f/b pulmonary at [facility] - thromboembolic + AYE -L pectineus hematoma seems to preexist the recent previous admission, the R oblique hematoma could be related to enoxaparin injection site -INR 1.3, Hg decreased 8.6-->7.4 over night but on exam evolving as expected no increase in pain and BP is robust for her. CTM, AM CBC -hold warfarin -rock and a hard place with pathologic bleeding and significant clotting tendency #pancytopenia - new anemia, thrombocytopenia since 01/30/25, leukopenia since at least 10/2024 -anemia may be related to acute blood loss anemia from the hematomas, thrombocytopenia might be consumptive -peripheral smear reviewed - notably, no changes of sepsis or MDS -iron studies with inflammatory block, B12 643 and folate >22 -consulted Dr. Upton - discussed with her 02/09 - agrees with above, hold AC until hematomas stable, taper topamax in case causing cytopenias, follow up as scheduled with Dr. Frost, BMBx if nonresolving -AM CBC - stable possibly diluted a little #hyponatremia Na 133-->135. chronic typically between 130-133 -normal 136 #moderate AI, TR. Normal LVEF mildly dilated RV 02/2023 -updated TTE unchanged from 2022 #chronic prednisone 5 mg for PMR, fibromyalgia - currently stress dose pred. With recent hospitalizations probably needs slow taper #chronically elevated HS-troponin probably being caused by her severe pulmonary hypertension nonspecific potentially ischemic changes on EKG, unknown whether underlying CAD - reviewed recent cardiology clinic notes and no mention of CAD -TTE without new changes #slight elevation of bilirubin and AST - monitor. Nothing notable on CT A/P with contrast. Bilirubin probably related to hematomas #CKD-3 -Cr is stable at baseline 0.6 #AYE intolerant of CPAP. Has been trying to get sleep study but keeps getting sick with various acute issues. Used to be on 2L nocturnal O2 but not recently #splenic lesions - has had lymphadenopathy as well in the past and [facility] #constipation with overflow incontinence - bid miralax, PRN dulcolax. Had mod stool #weakness - start PT/OT - rec rehab #LLE skin tear - consulted [facility] anasarca - concern for skin issues from this. Resume lasix 40 mg daily (double usual dose) and potassium 40 meq daily admissions this year - October, last week She prefers DNR/DNI DVT ppx - as discussed above. Subtherapeutic INR with coumadin for a few days might be the best short term approach Admission and Anticipated Discharge Date Admission Date: February 08, 2025 Subjective Fanny is feeling better today. She is very edematous and swollen. L groin was not painful when she got up. Cough and dyspnea much improved Physical Exam 2 Physical Exam: Last 24h vitals reviewed GEN: up in bed looks better HEENT: pupils equal, sclerae anicteric, moist MM RESP: normal WOB, clear bilaterally no rrw. O2 is at 1L CV: reg systolic murmur ABD: soft/nt/nd +BT. Right lower abdominal wall swelling and diffuse ecchymosis - swelling flattening and ecchymosis spreading across abdomen : joel with clear yellow urine SKIN: warm and dry, no generalized rashes LLE skin tear on urbina - dressed by [facility] EXT: anasarca LE>>UE. L groin nontender, ecchymosis tracking all the way down leg NEURO: AOx person, place, and situation. Vague on details and some ORUTSARARMIUT. Face symmetric, speech normal, moves 4 ext spontaneously and equally Results & Data Results & Data Vital Signs (Past 12 Hours) Vital Signs Temp Pulse Pulse Resp BP BP Pulse Ox 02/11/25 12:00 36.7 C 81 18 95/50 L 95 02/11/25 09:00 02/11/25 07:28 36.6 C 74 18 123/68 93 02/11/25 05:54 69 02/11/25 03:00 36.5 C 76 24 123/57 L 94 O2 Del Method O2 Flow Rate 02/11/25 12:00 Nasal Cannula 1.0 02/11/25 09:00 Nasal Cannula 1 02/11/25 07:28 Nasal Cannula 1 02/11/25 05:54 02/11/25 03:00 Nasal Cannula Laboratory Results 02/11/25 05:57 02/11/25 05:57 PG Care Time/CCT Total # of Minutes Spent Total Time Spent with Patient: Total time spent is greater than 50% in coordination of care (as documented) at patient's floor/unit and/or counseling patient: Coding Level of Care Code 76301 SUB INP/OBS CARE 2/35MIN Diagnoses Sepsis A41.9 Recurrent pulmonary emboli I26.99 Anticoagulant long-term use Z79.01 Intramuscular hematoma T14.8XXA Aortic valve insufficiency I35.1
[2025-02-11] MEDS: FUROSEMIDE 40 MG TAB PO SCH (14:04)
[2025-02-11] MEDS: NYSTATIN SUSP 500,000 U/5 ML UDC PO SCH (17:28)
[2025-02-12 06:17] LABS: Hematocrit (blood only) 23.5 % (37.0-47.0); Hemoglobin 8.0 g/dl (12.0-16.0); Mean Corpuscular Hemoglobin 32.5 pg (25.0-34.0); Mean Corpuscular Volume 95.5 fL (80.0-100.0); Platelet Count 51 K/uL (130-400); RDW Standard Deviation 61.9 fL (36.4-46.3); Red Blood Count 2.46 M/uL (4.20-5.40); White Blood Count 2.63 K/ul (4.8-10.8)
[2025-02-12 06:46] LABS: INR 1.3 (0.9-1.1); Prothrombin Time 14.0 Seconds (9.0-12.0)
[2025-02-12 07:11] LABS: Anion Gap 7.0 (3-11); Calcium 8.1 mg/dl (8.6-10.3); Carbon Dioxide 30.0 mmol/L (21-32); Chloride 101.0 mmol/L (98-107); Potassium 3.3 mmol/L (3.5-5.1); Sodium 138.0 mmol/L (136-145)
[2025-02-12 07:17] LABS: Blood Urea Nitrogen 21.0 mg/dl (6-23); Creatinine Clr Calc Pharmacy 45.7 ml/min; Glucose 160.0 mg/dl (70-99(Fasting))
[2025-02-12] MEDS: POTASSIUM CHLORIDE CRTAB 20 MEQ TABCR PO STA (10:20)
--- NOTE | 2025-02-12 10:24 | Hospitalist Progress Note ---
Date of Service February 12, 2025 Assessment & Plan (1) Sepsis: (2) Recurrent pulmonary emboli: (3) Anticoagulant long-term use: (4) Intramuscular hematoma: (5) Aortic valve insufficiency: Plan 84 y/o with history of PE's on coumadin, severe pulmonary hypertension and valvular heart disease who was recently hospitalized for E. coli UTI and rhinovirus/enterovirus, discharged home yesterday. During that admission she completed antibiotics with 7 days of rocephin for UTI and also course of azithromycin. She was diuresed a little and went home on oxygen, which is new for her. Admitted today with sepsis, worsened hypoxia and bilateral upper lobe GGOs on CTA. She also has extensive ecchymoses of right lower abdominal wall and left groin/thigh tracking down leg with intramuscular hematomas on CT. #sepsis due to suspected pneumonia. sepsis resolved. #positive blood culture 1 bottle - strep salivarus group and strep viridans - probable contaminant but is a potential cause of PNA. S. salivarus should be susceptible to cephalosporins #hypotension - chronic, but was worse than baseline. BP improved and now at baseline #enterovirus/rhinovirus infection -cefepime for HAP - much better -cont stress dose prednisone - start tapering prednisone toward baseline 5 mg - decrease to 15 mg in AM -TTE - unchanged from previous -CBC and BMP reviewed - notable for hypokalemia which I am replacing p.o. stable pancytopenia #intramuscular hematomas - coagulopathy from coumadin as well as thrombocytopenia. #chronic warfarin anticoagulation for recurrent PE, recurred on DOAC #severe pulmonary hypertension - f/b pulmonary at [facility] - thromboembolic + AYE -L pectineus hematoma seems to preexist the recent previous admission, the R oblique hematoma could be related to enoxaparin injection site -INR still 1.3, Plt 50. Hg back up to 8.0 reflecting some volume shifts. I think the hematomas are stable -warfarin 2 mg today -rock and a hard place with pathologic bleeding and significant clotting tendency #pancytopenia - new anemia, thrombocytopenia since 01/30/25, leukopenia since at least 10/2024 -anemia may be related to acute blood loss anemia from the hematomas, thrombocytopenia might be consumptive -peripheral smear reviewed - notably, no changes of sepsis or MDS -iron studies with inflammatory block, B12 643 and folate >22 -consulted Dr. Upton - discussed with her 02/09 - agrees with above, hold AC until hematomas stable, taper topamax in case causing cytopenias, follow up as scheduled with Dr. Frost, BMBx if nonresolving -CBC - remains pancytopenic -decrease topamax to 25 mg qAM #hyponatremia Na 133-->135. chronic typically between 130-133 -normal currently #moderate AI, TR. Normal LVEF mildly dilated RV 02/2023 -updated TTE unchanged from 2022 #chronic prednisone 5 mg for PMR, fibromyalgia - currently stress dose pred. With recent hospitalizations probably needs slow taper #chronically elevated HS-troponin probably being caused by her severe pulmonary hypertension nonspecific potentially ischemic changes on EKG, unknown whether underlying CAD - reviewed recent cardiology clinic notes and no mention of CAD -TTE without new changes #slight elevation of bilirubin and AST - monitor. Nothing notable on CT A/P with contrast. Bilirubin probably related to hematomas #CKD-3 -Cr is stable at baseline #AYE intolerant of CPAP. Has been trying to get sleep study but keeps getting sick with various acute issues. Used to be on 2L nocturnal O2 but not recently #splenic lesions - has had lymphadenopathy as well in the past and seen by [facility] oncology #constipation with overflow incontinence - bid miralax, PRN dulcolax. Had mod stool #weakness - start PT/OT - rec rehab #LLE skin tear - consulted WON. Per nursing it is small but weeping serosanguineous a lot because of edema anasarca - concern for skin issues from this. cont lasix 40 mg daily (double usual dose) - has been effective and tolerating hypokalemia - K 3.3 so total 60 meq for today then 40 daily admissions this year - October, last week She prefers DNR/DNI midmorning she had a coughing fit after trying to take potassium pills and because of her sore throat from candidiasis she could not swallow the rest of her morning meds. Therefore I ordered methylprednisolone 20 mg IV x 1 and Lasix 20 mg IV x 1, liquid oral potassium supplement. Also ordered Magic swizzle for her mouth/throat pain. Discussed with CASING BLOWER Stevie DVT ppx - as discussed above. Subtherapeutic INR with coumadin for a few days might be the best short term approach Improving but continues to require very medically complex decision making Admission and Anticipated Discharge Date Admission Date: February 08, 2025 Roland Escobedo's main issue today is that her mouth and pharynx are very sore from thrush she has been urinating a lot after Lasix and her edema definitely has improved she still has a cough but is no longer requiring oxygen, no chest pain no further pain at the hematoma sites Physical Exam 2 Physical Exam: Last 24h vitals reviewed GEN: walked from the commode to the bed pretty steady, sitting in bed HEENT: pupils equal, sclerae anicteric, moist MM. white patches on tongue and pharynx improved since yesterday RESP: normal WOB, clear bilaterally no rrw. CV: reg systolic murmur ABD: soft/nt/nd +BT. Right lower abdominal wall swelling and diffuse ecchymosis - swelling flattening and ecchymosis spreading across abdomenunchanged : joel was removed SKIN: warm and dry, no generalized rashes LLE skin tear on urbina - dressed EXT: anasarca improved, upper extremity edema resolved, 2+ bilateral lower extremity edema. L groin nontender, ecchymosis tracking all the way down legunchanged NEURO: AOx person, place, and situation. Vague on details and some [place] [employer] [employer]. Face symmetric, speech normal, moves 4 ext spontaneously and equally Results & Data Results & Data Vital Signs (Past 12 Hours) Vital Signs Temp Pulse Pulse Resp BP BP Pulse Ox 02/12/25 08:27 37.2 C 89 25 H 108/62 90 02/12/25 03:10 36.9 C 84 21 106/61 93 02/11/25 22:56 96 H 02/11/25 22:55 36.9 C 78 24 110/63 93 O2 Del Method O2 Flow Rate 02/12/25 08:27 Nasal Cannula 2 02/12/25 03:10 Nasal Cannula 1 02/11/25 22:56 02/11/25 22:55 Nasal Cannula 1 Laboratory Results 02/12/25 05:48 02/12/25 05:48 INR 1.3 PG Care Time/CCT Total # of Minutes Spent Total Time Spent with Patient: Total time spent is greater than 50% in coordination of care (as documented) at patient's floor/unit and/or counseling patient: Coding Level of Care Code 67060 SUB INP/OBS CARE 50MIN Diagnoses Sepsis A41.9 Recurrent pulmonary emboli I26.99 Anticoagulant long-term use Z79.01 Intramuscular hematoma T14.8XXA Aortic valve insufficiency I35.1
[2025-02-12] MEDS: POTASSIUM CHLORIDE CRTAB 20 MEQ TABCR PO ONE (14:32)
[2025-02-12] MEDS: FUROSEMIDE INJ 20 MG/2 ML VIAL IV ONE (14:50)
[2025-02-12] MEDS: FIRST - Mouthwash BLM 5 ML UDP PO PRN (16:20)
[2025-02-12] MEDS: POTASSIUM CHLORIDE 20 MEQ/15 ML UDC PO SCH (16:40)
[2025-02-12] MEDS: WARFARIN SOD 2 MG TAB PO SCH (16:43)
[2025-02-12] MEDS: BENZONATATE 100 MG CAPSULE PO PRN (21:55)
[2025-02-12] MEDS: FIRST - Mouthwash BLM 119 ML PO PRN (21:56)
[2025-02-13 07:57] LABS: INR 1.2 (0.9-1.1); Prothrombin Time 12.4 Seconds (9.0-12.0)
[2025-02-13 08:09] LABS: Hematocrit (blood only) 28.9 % (37.0-47.0); Hemoglobin 9.3 g/dl (12.0-16.0); Mean Corpuscular Hemoglobin 32.0 pg (25.0-34.0); Mean Corpuscular Volume 99.3 fL (80.0-100.0); Platelet Count 54 K/uL (130-400); RDW Standard Deviation 67.5 fL (36.4-46.3); Red Blood Count 2.91 M/uL (4.20-5.40); White Blood Count 3.15 K/ul (4.8-10.8)
[2025-02-13] MEDS ORDERED: FIRST - Mouthwash BLM 119 ML PO PRN (08:27)
[2025-02-13 08:33] LABS: Anion Gap 4.0 (3-11); Blood Urea Nitrogen 18.0 mg/dl (6-23); Calcium 8.3 mg/dl (8.6-10.3); Carbon Dioxide 33.0 mmol/L (21-32); Chloride 101.0 mmol/L (98-107); Creatinine Clr Calc Pharmacy 49.9 ml/min; Glucose 145.0 mg/dl (70-99(Fasting)); Potassium 4.4 mmol/L (3.5-5.1); Sodium 138.0 mmol/L (136-145)
[2025-02-13] MEDS: TOPIRAMATE 25 MG TAB PO SCH (08:52)
[2025-02-13] MEDS ORDERED: POTASSIUM CHLORIDE CRTAB 20 MEQ TABCR PO SCH (09:00)
[2025-02-13 12:20] LABS: Base Excess VBG 5.0 mEq/L; HCO3 VBG 31 mmol/L; Oxygen Saturation VBG < 60.0 %; PCO2 VBG 51 mmHg (38-50); PO2 VBG 21 mmHg; pH VBG 7.39 (7.36-7.41)
[2025-02-13] MEDS: FIRST - Mouthwash BLM 5 ML UDP PO PRN (14:16)
[2025-02-13] MEDS: FUROSEMIDE 40 MG TAB PO SCH (17:08)
[2025-02-13] MEDS: WARFARIN SOD 2 MG TAB PO SCH (17:08)
--- NOTE | 2025-02-13 17:29 | Hospitalist Progress Note ---
Date of Service February 13, 2025 Assessment & Plan (1) Sepsis: (2) Recurrent pulmonary emboli: (3) Anticoagulant long-term use: (4) Intramuscular hematoma: (5) Aortic valve insufficiency: Plan 84 y/o with history of PE's on coumadin, severe pulmonary hypertension and valvular heart disease who was recently hospitalized for E. coli UTI and rhinovirus/enterovirus, discharged home yesterday. During that admission she completed antibiotics with 7 days of rocephin for UTI and also course of azithromycin. She was diuresed a little and went home on oxygen, which is new for her. Admitted today with sepsis, worsened hypoxia and bilateral upper lobe GGOs on CTA. She also has extensive ecchymoses of right lower abdominal wall and left groin/thigh tracking down leg with intramuscular hematomas on CT. #sepsis due to suspected pneumonia. sepsis resolved. #positive blood culture 1 bottle - strep salivarus group and strep viridans - probable contaminant but is a potential cause of PNA. S. salivarus should be susceptible to cephalosporins #hypotension - chronic, but was worse than baseline. BP improved and now at baseline #enterovirus/rhinovirus infection -cefepime for HAP - much better. at this point she has had 5 days of IV antibiotics, the cefepime may be contributing to encephalopathy therefore I will stop it. Treatment completed -cont stress dose prednisone - - decrease to 15 mg -TTE - unchanged from previous # acute toxic metabolic encephalopathy, asterixis present obtained venous blood gas and she is not significantly hypercarbic. BMP does not show any significant electrolyte abnormalities or renal dysfunction stop cefepime which can cause an encephalopathy held or stopped other sedating or deliriogenic medications including Topamax, gabapentin, tramadol #intramuscular hematomas - coagulopathy from coumadin as well as thrombocytopenia. #chronic warfarin anticoagulation for recurrent PE, recurred on DOAC #severe pulmonary hypertension - f/b pulmonary at [facility] - thromboembolic + AYE -L pectineus hematoma seems to preexist the recent previous admission, the R oblique hematoma could be related to enoxaparin injection site - hematomas and hemoglobin are stable, INR is subtherapeutic at 1.2 -warfarin 2 mg today, discussed with pharmacist. increased dose tomorrow if no uptrend -rock and a hard place with pathologic bleeding and significant clotting tendency #pancytopenia - new anemia, thrombocytopenia since 01/30/25, leukopenia since at least 10/2024 -anemia may be related to acute blood loss anemia from the hematomas, thrombocytopenia might be consumptive -peripheral smear reviewed - notably, no changes of sepsis or MDS -iron studies with inflammatory block, B12 643 and folate >22 -consulted Dr. Upton - discussed with her 02/09 - agrees with above, hold AC until hematomas stable, taper topamax in case causing cytopenias, follow up as scheduled with Dr. Frost, BMBx if nonresolving -CBC - remains pancytopenic - stopped Topamax #hyponatremia Na 133-->135. chronic typically between 130-133 -normal currently #moderate AI, TR. Normal LVEF mildly dilated RV 02/2023 -updated TTE unchanged from 2022 #chronic prednisone 5 mg for PMR, fibromyalgia - currently stress dose pred. With recent hospitalizations probably needs slow taper #chronically elevated HS-troponin probably being caused by her severe pulmonary hypertension nonspecific potentially ischemic changes on EKG, unknown whether underlying CAD - reviewed recent cardiology clinic notes and no mention of CAD -TTE without new changes #slight elevation of bilirubin and AST - monitor. Nothing notable on CT A/P with contrast. Bilirubin probably related to hematomas #CKD-3 -Cr is stable at baseline #AYE intolerant of CPAP. Has been trying to get sleep study but keeps getting sick with various acute issues. Used to be on 2L nocturnal O2 but not recently #splenic lesions - has had lymphadenopathy as well in the past and seen by [facility] oncology #constipation with overflow incontinence - bid miralax, PRN dulcolax. Had mod stool #weakness - start PT/OT - rec rehab #LLE skin tear - consulted WON. Per nursing it is small but weeping serosanguineous a lot because of edema anasarca - concern for skin issues from this. increase oral Lasix to 40 mg twice daily, continue oral potassium replacement admissions this year - October, last week She prefers DNR/DNI DVT ppx - as discussed above. Subtherapeutic INR with coumadin for a few days might be the best short term approach she is requiring medically complex decision making, evaluation for new acute problem of encephalopathy Admission and Anticipated Discharge Date Admission Date: February 08, 2025 Subjective Fanny is confused today and less alert she also has asterixis she was thought to be severely hypoxic early this morning but RT came and it was actually poor reading on the sensor because of her Raynaud's Physical Exam 2 Physical Exam: Last 24h vitals reviewed GEN: sitting up in bed eating no distress HEENT: pupils equal, sclerae anicteric, moist MM. oral candidiasis improved RESP: normal WOB, clear bilaterally no rrw. CV: reg systolic murmur ABD: soft/nt/nd +BT. right lower abdominal wall hematoma has flattened out, dark old appearing ecchymosis across abdominal wall SKIN: warm and dry, no generalized rashes LLE skin tear on urbina - dressed EXT: anasarca remains significant including upper extremity edema and 3+ bilateral lower extremity edema. L groin nontender, ecchymosis tracking all the way down legunchanged NEURO: Ox person, but not fully to situation. Face symmetric, speech normal, moves 4 ext spontaneously and equally, asterixis present Results & Data Results & Data Vital Signs (Past 12 Hours) Vital Signs Temp Pulse Pulse Resp BP Pulse Ox O2 Del Method 02/13/25 15:50 85 02/13/25 15:10 37.8 C H 93 H 20 115/70 98 Nasal Cannula 02/13/25 12:58 Nasal Cannula 02/13/25 11:43 36.5 C 91 H 26 H 131/71 94 Nasal Cannula 02/13/25 10:28 100 Nasal Cannula 02/13/25 09:45 94 H 26 H 95 Nasal Cannula 02/13/25 08:39 36.9 C 104 H 16 136/79 Nasal Cannula 02/13/25 08:00 80 O2 Flow Rate 02/13/25 15:50 02/13/25 15:10 2 02/13/25 12:58 2 02/13/25 11:43 2 02/13/25 10:28 2 02/13/25 09:45 3 02/13/25 08:39 2 02/13/25 08:00 Laboratory Results 02/13/25 07:38 02/13/25 07:38 VBG 7.39/51/21 PG Care Time/CCT Total # of Minutes Spent Total Time Spent with Patient: Total time spent is greater than 50% in coordination of care (as documented) at patient's floor/unit and/or counseling patient: Coding Level of Care Code 88583 SUB INP/OBS CARE 50MIN Diagnoses Sepsis A41.9 Recurrent pulmonary emboli I26.99 Anticoagulant long-term use Z79.01 Intramuscular hematoma T14.8XXA Aortic valve insufficiency I35.1
[2025-02-14 06:02] LABS: Hematocrit (blood only) 25.3 % (37.0-47.0); Hemoglobin 8.2 g/dl (12.0-16.0); Mean Corpuscular Hemoglobin 31.8 pg (25.0-34.0); Mean Corpuscular Volume 98.1 fL (80.0-100.0); Platelet Count 49 K/uL (130-400); RDW Standard Deviation 66.0 fL (36.4-46.3); Red Blood Count 2.58 M/uL (4.20-5.40); White Blood Count 3.34 K/ul (4.8-10.8)
[2025-02-14 06:30] LABS: INR 1.2 (0.9-1.1); Prothrombin Time 12.5 Seconds (9.0-12.0)
[2025-02-14 07:16] LABS: Anion Gap 5.0 (3-11); Blood Urea Nitrogen 19.0 mg/dl (6-23); Calcium 8.3 mg/dl (8.6-10.3); Carbon Dioxide 33.0 mmol/L (21-32); Chloride 95.0 mmol/L (98-107); Creatinine Clr Calc Pharmacy 46.5 ml/min; Glucose 131.0 mg/dl (70-99(Fasting)); Potassium 3.5 mmol/L (3.5-5.1); Sodium 133.0 mmol/L (136-145)
[2025-02-14] MEDS: POTASSIUM CHLORIDE 20 MEQ/15 ML UDC PO SCH (08:53)
[2025-02-14] MEDS: WARFARIN SOD 3 MG TAB PO SCH (16:41)
--- NOTE | 2025-02-14 18:12 | Hospitalist Progress Note ---
Date of Service February 14, 2025 Assessment & Plan (1) Sepsis: (2) Anticoagulant long-term use: (3) Intramuscular hematoma: (4) Aortic valve insufficiency: (5) Chronic pulmonary embolism: Plan 84 y/o with history of PE's on coumadin, severe pulmonary hypertension and valvular heart disease who was recently hospitalized for E. coli UTI and rhinovirus/enterovirus, discharged home yesterday. During that admission she completed antibiotics with 7 days of rocephin for UTI and also course of azithromycin. She was diuresed a little and went home on oxygen, which is new for her. Admitted today with sepsis, worsened hypoxia and bilateral upper lobe GGOs on CTA. She also has extensive ecchymoses of right lower abdominal wall and left groin/thigh tracking down leg with intramuscular hematomas on CT. #sepsis due to suspected pneumonia. sepsis resolved. #hypotension - chronic, but was worse than baseline. BP improved and now at baseline #enterovirus/rhinovirus infection - detected 02/01, still positive 02/08. can't determine whether this was playing a role 02/01-02/08. Typical symptoms last 10 days. -completed a cource of cefepime for HAP -cont stress dose prednisone - - decreased to 15 mg 02/13. Taper every three days to baseline 5 mg -TTE - unchanged from previous # acute toxic metabolic encephalopathy, asterixis present. Started 02/13 -stopped cefepime held or stopped other sedating or deliriogenic medications including Topamax, gabapentin, tramadol -resolved #intramuscular hematomas - coagulopathy from coumadin as well as thrombocytopenia. #chronic warfarin anticoagulation for chronic pulmonary embolism, had recurrent PE while on DOAC #severe pulmonary hypertension - f/b pulmonary at [facility] - thromboembolic + AYE -L pectineus hematoma seems to preexist the recent previous admission, the R oblique hematoma could be related to enoxaparin injection site -hematomas and hemoglobin are stable, INR is subtherapeutic at 1.2 -warfarin 3 mg today, daily INR #pancytopenia - new anemia, thrombocytopenia since 01/30/25, leukopenia since at least 10/2024 -anemia may be related to acute blood loss anemia from the hematomas, thrombocytopenia might be consumptive -peripheral smear reviewed - notably, no changes of sepsis or MDS -iron studies with inflammatory block, B12 643 and folate >22 -consulted Dr. Upton - discussed with her 02/09 - agrees with above, hold AC until hematomas stable, taper topamax in case causing cytopenias, follow up as scheduled with Dr. Frost, BMBx if nonresolving -CBC - remains pancytopenic reviewed 02/14 - stopped Topamax #hyponatremia Na 133-->138-->133. chronic typically between 130-133 -133 -monitor periodically #moderate AI, TR. Normal LVEF mildly dilated RV 02/2023 -updated TTE unchanged from 2022 #chronic prednisone 5 mg for PMR, fibromyalgia - currently stress dose pred. With recent hospitalizations probably needs slow taper #chronically elevated HS-troponin probably being caused by her severe pulmonary hypertension nonspecific potentially ischemic changes on EKG, unknown whether underlying CAD - reviewed recent cardiology clinic notes and no mention of CAD -TTE without new changes #slight elevation of bilirubin and AST - monitor. Nothing notable on CT A/P with contrast. Bilirubin probably related to hematomas -AM LFT #CKD-3 -Cr is stable at baseline #AYE intolerant of CPAP. Has been trying to get sleep study but keeps getting sick with various acute issues. Used to be on 2L nocturnal O2 but not recently #splenic lesions - has had lymphadenopathy as well in the past and seen by [facility] oncology #constipation with overflow incontinence - bid miralax, PRN dulcolax. Had mod stool #LLE skin tear - consulted WON. Per nursing it is small but weeping serosanguineous a lot because of edema anasarca - concern for skin issues from this. lightheaded today so decreased lasix / K to 40 once daily admissions this year - October, last week She prefers DNR/DNI DVT ppx - as discussed above. Subtherapeutic INR with coumadin for a few days might be the best short term approach planning for [facility] Admission and Anticipated Discharge Date Admission Date: February 08, 2025 Subjective lightheaded when up OOB today but BP at her baseline mental status much clearer today and no tremor/asterixis Physical Exam 2 Physical Exam: Last 24h vitals reviewed GEN: sitting up in bed with bfast HEENT: pupils equal, sclerae anicteric, moist MM. oral candidiasis improved - no white patches RESP: normal WOB, clear bilaterally no rrw. CV: reg systolic murmur ABD: soft/nt/nd +BT. right lower abdominal wall hematoma has flattened out, dark old appearing ecchymosis across abdominal wall SKIN: warm and dry, no generalized rashes LLE skin tear on urbina - dressed EXT: anasarca remains significant UE edema resolved and persistent 3+ bilateral lower extremity edema. L groin nontender, ecchymosis tracking all the way down legunchanged NEURO: AOx person, place, basic situation. Face symmetric, speech normal, moves 4 ext spontaneously and equally, NO asterixis present Results & Data Results & Data Vital Signs (Past 12 Hours) Vital Signs Temp Pulse Pulse Resp BP Pulse Ox O2 Del Method 02/14/25 15:41 36.9 C 60 21 111/70 97 Nasal Cannula 02/14/25 14:20 109/61 02/14/25 14:13 85 02/14/25 10:46 36.7 C 82 17 98/64 L 96 Room Air 02/14/25 09:00 Nasal Cannula 02/14/25 07:37 36.7 C 77 21 111/69 98 Nasal Cannula O2 Flow Rate 02/14/25 15:41 1 02/14/25 14:20 02/14/25 14:13 02/14/25 10:46 02/14/25 09:00 2 02/14/25 07:37 2 Laboratory Results 02/14/25 05:26 02/14/25 05:26 INR 1.2 PG Care Time/CCT Total # of Minutes Spent Total Time Spent with Patient: Total time spent is greater than 50% in coordination of care (as documented) at patient's floor/unit and/or counseling patient: Coding Level of Care Code 76098 SUB INP/OBS CARE 2/35MIN Diagnoses Sepsis A41.9 Anticoagulant long-term use Z79.01 Intramuscular hematoma T14.8XXA Aortic valve insufficiency I35.1 Chronic pulmonary embolism I27.82
[2025-02-15] MEDS: CALCIUM GLUCONATE 1,000 MG/60 ML BAG IV STA (02:46)
[2025-02-15 03:10] LABS: Anion Gap 8.0 (3-11); Blood Urea Nitrogen 21.0 mg/dl (6-23); Calcium 8.5 mg/dl (8.6-10.3); Carbon Dioxide 30.0 mmol/L (21-32); Chloride 96.0 mmol/L (98-107); Creatinine Clr Calc Pharmacy 43.3 ml/min; Glucose 149.0 mg/dl (70-99(Fasting)); Magnesium 2.0 mg/dl (1.7-2.4); Potassium 4.2 mmol/L (3.5-5.1); Sodium 134.0 mmol/L (136-145)
[2025-02-15 06:32] LABS: Hematocrit (blood only) 26.6 % (37.0-47.0); Hemoglobin 8.6 g/dl (12.0-16.0); Mean Corpuscular Hemoglobin 32.1 pg (25.0-34.0); Mean Corpuscular Volume 99.3 fL (80.0-100.0); Platelet Count 60 K/uL (130-400); RDW Standard Deviation 68.7 fL (36.4-46.3); Red Blood Count 2.68 M/uL (4.20-5.40); White Blood Count 3.91 K/ul (4.8-10.8)
[2025-02-15 07:14] LABS: INR 1.2 (0.9-1.1); Prothrombin Time 12.8 Seconds (9.0-12.0)
[2025-02-15 07:37] LABS: Alanine Aminotransferase 31.0 U/L (7-52); Albumin Level 3.3 gm/dl (3.4-5.0); Alkaline Phosphatase 60.0 U/L (34-104); Anion Gap 8.0 (3-11); Bilirubin,Total 2.4 mg/dl (0.2-1.0); Blood Urea Nitrogen 19.0 mg/dl (6-23); Calcium 8.7 mg/dl (8.6-10.3); Carbon Dioxide 30.0 mmol/L (21-32); Chloride 94.0 mmol/L (98-107); Creatinine Clr Calc Pharmacy 40.0 ml/min; Glucose 169.0 mg/dl (70-99(Fasting)); Potassium 3.9 mmol/L (3.5-5.1); Sodium 132.0 mmol/L (136-145); Total Protein 5.1 gm/dl (6.0-8.3)
[2025-02-15] MEDS: FUROSEMIDE 40 MG TAB PO SCH (08:35)
[2025-02-15] MEDS: POTASSIUM CHLORIDE 20 MEQ/15 ML UDC PO SCH (08:36)
[2025-02-15] MEDS: PROCHLORPERAZINE 5 MG in SYRINGE 4 ML IV PRN (13:01)
[2025-02-15 13:35] LABS: Lipase 36.0 U/L (11-82)
--- NOTE | 2025-02-15 13:44 | XRay Report ---
KUB HISTORY: nausea COMPARISON STUDY: 11/15/2024 and 02/08/2025 FINDINGS: Stable surgical suture at the right upper quadrant. There is moderate retained stool. There are a few mildly distended upper abdominal small bowel loops measuring up to 3.5 cm diameter. No col onic distention seen. No gross free air. IMPRESSION: A few mildly distended small bowel loops of uncertain significance. Differential diagnosi s includes ileus and early small bowel obstruction. ACT 112: Negative or not required by law. The above report was generated using voice recognition software. It may contain grammatical, syntax o r spelling errors. Electronically signed by: Brenden Mcclendon M.D. 02/15/2025 1:43 PM
[2025-02-15] MEDS: WARFARIN SOD 3 MG TAB PO SCH (16:47)
--- NOTE | 2025-02-15 17:18 | Ultrasound Report ---
Clinical history: Nausea and elevated bilirubin Technique: Sonography was performed of the right upper quadrant of the abdomen Findings: There is no sign of cirrhosis or significant fatty infiltration. No definite liver mass is seen The gallbladder has been removed. There is no intrahepatic or extrahepatic bile duct dilatation. The common bile duct measures 6 mm The right kidney measures 10 cm in length. There is no hydronephrosis. No definite renal calculus or mass is seen The visualized pancreas, aorta, and IVC appear unremarkable. No ascites is seen. There is an apparent right pleural effusion Impression: 1. Prior cholecystectomy 2. Right pleural effusion Electronically signed by Kristopher Garzon 02-15-2025 5:18 PM
--- NOTE | 2025-02-15 21:00 | Hospitalist Progress Note ---
Date of Service February 15, 2025 Assessment & Plan (1) Sepsis: (2) Anticoagulant long-term use: (3) Intramuscular hematoma: (4) Aortic valve insufficiency: (5) Chronic pulmonary embolism: Plan 84 y/o with history of PE's on coumadin, severe pulmonary hypertension and valvular heart disease who was recently hospitalized for E. coli UTI and rhinovirus/enterovirus, discharged home yesterday. During that admission she completed antibiotics with 7 days of rocephin for UTI and also course of azithromycin. She was diuresed a little and went home on oxygen, which is new for her. Admitted today with sepsis, worsened hypoxia and bilateral upper lobe GGOs on CTA. She also has extensive ecchymoses of right lower abdominal wall and left groin/thigh tracking down leg with intramuscular hematomas on CT. #sepsis due to suspected pneumonia. sepsis resolved. #hypotension - chronic, but was worse than baseline. BP improved and now at baseline #enterovirus/rhinovirus infection - detected 02/01, still positive 02/08. can't determine whether this was playing a role 02/01-02/08. Typical symptoms last 10 days. -completed a cource of cefepime for HAP -cont stress dose prednisone - - decreased to 15 mg 02/13. Same dose since ill today, but can go down by 5 mg every three days or so -TTE - unchanged from previous #nausea - new this morning and abdomen nontender without pain. -obtained LFT and lipase notable for mild bilirubin elevation to 2.4 -KUB - ileus vs early SBO and lots of stool -RUQ US - post CCE, no hollis dil Possibly obstipation, ileus. Ordered another KUB for AM as well as CMP. SBO seems unlikely - no emesis or abdominal pain. I don't think there is gallbladder pathology. She has had mild bilirubin elevations before probably from the hematomas, also could be from her TR -clear liquid diet -added compazine to zofran -dulcolax supp # acute toxic metabolic encephalopathy, asterixis present. Started 02/13 -stopped cefepime held or stopped other sedating or deliriogenic medications including Topamax, gabapentin, tramadol -improved but per family not entirely resolved #intramuscular hematomas - coagulopathy from coumadin as well as thrombocytopenia. 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 Ordered warfarin 3 mg x 1 today. Usual dose 2 mg daily. Daily INR check #pancytopenia - new anemia, thrombocytopenia since 01/30/25, leukopenia since at least 10/2024 -anemia may be related to acute blood loss anemia from the hematomas, thrombocytopenia might be consumptive -peripheral smear reviewed - notably, no changes of sepsis or MDS -iron studies with inflammatory block, B12 643 and folate >22 -consulted Dr. Upton - discussed with her 02/09 - agrees with above, hold AC until hematomas stable, taper topamax in case causing cytopenias, follow up as scheduled with Dr. Frost, BMBx if nonresolving -CBC - remains pancytopenic reviewed 02/15. WBC trended up. - stopped Topamax #hyponatremia Na 133-->138-->133. chronic typically between 130-133 -132 today -monitor periodically #moderate AI, TR. Normal LVEF mildly dilated RV 02/2023 -updated TTE unchanged from 2022 #chronic prednisone 5 mg for PMR, fibromyalgia - currently stress dose pred. With recent hospitalizations probably needs slow taper #chronically elevated HS-troponin probably being caused by her severe pulmonary hypertension nonspecific potentially ischemic changes on EKG, unknown whether underlying CAD - reviewed recent cardiology clinic notes and no mention of CAD -TTE without new changes #slight elevation of bilirubin and AST - monitor. Nothing notable on CT A/P with contrast. Bilirubin probably related to hematomas -AM LFT #CKD-3 -Cr is stable at baseline #AYE intolerant of CPAP. Has been trying to get sleep study but keeps getting sick with various acute issues. Used to be on 2L nocturnal O2 but not recently #splenic lesions - has had lymphadenopathy as well in the past and seen by [facility] oncology - follow up with them #constipation with overflow incontinence - bid miralax, PRN dulcolax. Having stools now still lots on KUB see above #LLE skin tear - consulted WON. Per nursing it is small but weeping serosanguineous a lot because of edema anasarca - concern for skin issues from this. diuresed well on lasix 40 mg po daily, currently held. resume diuresis when nausea resolved admissions this year - October, last week She prefers DNR/DNI DVT ppx - as discussed above. Subtherapeutic INR with coumadin might be the best short term approach. She's had hematomas with enoxaparin planning for discharge to [facility] - once GI symptoms improve I updated her granddaughter and son at bedside today Admission and Anticipated Discharge Date Admission Date: February 08, 2025 Subjective nausea all morning, did not eat well, got zofran then compazine mental status much better than 48h ago family reports not completely back to baseline still more confused than normal had BMs yesterday leg edema is down a lot Physical Exam 2 Physical Exam: Last 24h vitals reviewed GEN: sitting up in chair HEENT: pupils equal, sclerae anicteric, moist MM. RESP: normal WOB, clear bilaterally no rrw. CV: reg systolic murmur ABD: soft/nt/nd +BT. right lower abdominal wall hematoma has flattened out, dark old appearing ecchymosis across abdominal wall wrapping around the back even SKIN: warm and dry, no generalized rashes LLE skin tear on urbina - dressed EXT: anasarca better - UE edema resolved thigh and knee sophie edema resolved, still 2-3+ lower shins and feet L groin nontender, ecchymosis tracking all the way down legunchanged NEURO: AOx person, place, basic situation. Face symmetric, speech normal, moves 4 ext spontaneously and equally, no asterixis present Results & Data Results & Data Vital Signs (Past 12 Hours) Vital Signs Temp Pulse Pulse Pulse Resp BP Pulse Ox 02/15/25 19:48 36.4 C L 89 19 103/54 L 96 02/15/25 15:55 36.6 C 79 16 101/59 L 91 02/15/25 15:00 85 02/15/25 11:40 36.8 C 90 25 H 100/54 L 96 O2 Del Method O2 Flow Rate 02/15/25 19:48 Nasal Cannula 2 02/15/25 15:55 Nasal Cannula 2 02/15/25 15:00 02/15/25 11:40 Nasal Cannula 2 Laboratory Results 02/15/25 05:29 02/15/25 05:29 bili 2.4 but AST/ALT/AP unremarkable lipase normal KUB - some dilated loops of small bowel - ileus vs early SBO, lots of stool - personally reviewed KUB film and agree US RUQ - post cholecystectomy, no biliary dilation PG Care Time/CCT Total # of Minutes Spent Total Time Spent with Patient: Total time spent is greater than 50% in coordination of care (as documented) at patient's floor/unit and/or counseling patient: Coding Level of Care Code 45747 SUB INP/OBS CARE 3/50MIN Diagnoses Sepsis A41.9 Anticoagulant long-term use Z79.01 Intramuscular hematoma T14.8XXA Aortic valve insufficiency I35.1 Chronic pulmonary embolism I27.82
[2025-02-16 06:31] LABS: Hematocrit (blood only) 24.0 % (37.0-47.0); Hemoglobin 7.9 g/dl (12.0-16.0); Mean Corpuscular Hemoglobin 32.5 pg (25.0-34.0); Mean Corpuscular Volume 98.8 fL (80.0-100.0); Platelet Count 57 K/uL (130-400); RDW Standard Deviation 70.0 fL (36.4-46.3); Red Blood Count 2.43 M/uL (4.20-5.40); White Blood Count 2.98 K/ul (4.8-10.8)
[2025-02-16 07:26] LABS: INR 1.3 (0.9-1.1); Prothrombin Time 13.4 Seconds (9.0-12.0)
[2025-02-16 07:41] LABS: Alanine Aminotransferase 30.0 U/L (7-52); Albumin Globulin Ratio 1.9 (0.9-2); Albumin Level 3.3 gm/dl (3.4-5.0); Alkaline Phosphatase 54.0 U/L (34-104); Anion Gap 7.0 (3-11); Bilirubin,Total 2.6 mg/dl (0.2-1.0); Blood Urea Nitrogen 25.0 mg/dl (6-23); Calcium 8.4 mg/dl (8.6-10.3); Carbon Dioxide 30.0 mmol/L (21-32); Chloride 95.0 mmol/L (98-107); Creatinine Clr Calc Pharmacy 34.2 ml/min; Globulin 1.7 gm/dl (2.5-4.0); Glucose 121.0 mg/dl (70-99(Fasting)); Potassium 3.8 mmol/L (3.5-5.1); Sodium 132.0 mmol/L (136-145); Total Protein 5.0 gm/dl (6.0-8.3)
--- NOTE | 2025-02-16 07:50 | Hospitalist Progress Note ---
Date of Service February 16, 2025 Assessment & Plan (1) Sepsis: Plan: Eulalia is an 84-year-old female with a history of PEs on Coumadin, severe pulmonary hypertension, recent hospital admission for E. coli UTI and rhino/enterovirus who presented back to the hospital 02/08/2025 with worsening hypoxia and bilateral upper lobe opacities on CTchest. She also noted to have extensive ecchymosis of right lower abdominal wall and left groin/thigh tracking down the leg with CT consistent with intramuscular hematomas. Sepsis 2/2 pneumonia Sepsis resolved CTA 02/08: Unchanged chronic PE, no definite sign of new PE, mild pulmonary edema and small bilateral pleural effusions, bilateral upper lobe GGO Noro/rhinovirus detected 02/01, residual + 02/08. Supportive care Completed a course of cefepime for hap Stress dose prednisone decreased to 50 mg 02/13. Decrease by 5 mg every 34 days. Decrease to 10 mg 02/17/2025 TTE 02/09 unchanged; EF 65-70%. Mild AV sclerosis without stenosis, turbulent TR, moderate to severe TR, RV dilation, moderate AR. Similar to 2022. RVSP 60. Constipation, ileus versus early SBO KUB 02/15 with few mildly distended small bowel loops consistent with ileus versus early SBO Repeat KUB 02/16: Improved Has had a bowel movement in the last 24 hours, passing gas Continue bowel regimen Acute toxic metabolic encephalopathy, asterixis Started 02/13 Cefepime was discontinued Topamax, gabapentin, tramadol were discontinued Improving but not resolved ALT normal, minimal AST elevation, mildly elevated bilirubin. Gallbladder ultrasound shows prior cholecystectomy, right pleural effusion. Slight downtrend? With some underlying reabsorption/analysis Intramuscular hematomas Interval worsening of right internal oblique suspected due to hematoma, new suspected subacute hemorrhage of the left pectineus muscle. 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 No ongoing bleeding/expansion at this time, goal to pursue low therapeutic INR with warfarin. INR 1.3 on 02/16. Unfortunately her hemoglobin again dropped today although no clear expansion of her hematoma. Given drop in hemoglobin hematomas did discuss with hematology. Agree with holding warfarin until stable. She is high risk for recurrent VTE however is also with increased risk of complications should a filter be pursued. Do not recommend a filter in absence of development of actual lower extremity VTE. Appreciate recommendations Hyponatremia Baseline typically around [id number] Trend PMR/fibromyalgia Chronic prednisone 5 mg at baseline Continue stress dose taper as noted above AYE intolerant of CPAP Has been unable to reach outpatient sleep study due to concurrent illnesses Intolerant of PPV Continue nocturnal oxygen as needed for now Anasarca Diuresis as tolerated. Lasix 40 mg today Creatinine at baseline, 0.88 BP 106/56 Chronic stable issues: Splenic lesions: With lymphadenopathy. Follows with [facility] oncology, continue outpatient follow-up Left lower extremity skin tear: Continue wound care CODE STATUS: DNR/DNI (2) Anticoagulant long-term use: (3) Intramuscular hematoma: (4) Aortic valve insufficiency: (5) Chronic pulmonary embolism: Plan 84 y/o with history of PE's on coumadin, severe pulmonary hypertension and valvular heart disease who was recently hospitalized for E. coli UTI and rhinovirus/enterovirus, discharged home yesterday. During that admission she completed antibiotics with 7 days of rocephin for UTI and also course of azithromycin. She was diuresed a little and went home on oxygen, which is new for her. Admitted today with sepsis, worsened hypoxia and bilateral upper lobe GGOs on CTA. She also has extensive ecchymoses of right lower abdominal wall and left groin/thigh tracking down leg with intramuscular hematomas on CT. #sepsis due to suspected pneumonia. sepsis resolved. #hypotension - chronic, but was worse than baseline. BP improved and now at baseline #enterovirus/rhinovirus infection - detected 02/01, still positive 02/08. can't determine whether this was playing a role 02/01-02/08. Typical symptoms last 10 days. -completed a cource of cefepime for HAP -cont stress dose prednisone - - decreased to 15 mg 02/13. Same dose since ill today, but can go down by 5 mg every three days or so -TTE - unchanged from previous #nausea - new this morning and abdomen nontender without pain. -obtained LFT and lipase notable for mild bilirubin elevation to 2.4 -KUB - ileus vs early SBO and lots of stool -RUQ US - post CCE, no hollis dil Possibly obstipation, ileus. Ordered another KUB for AM as well as CMP. SBO seems unlikely - no emesis or abdominal pain. I don't think there is gallbladder pathology. She has had mild bilirubin elevations before probably from the hematomas, also could be from her TR -clear liquid diet -added compazine to zofran -dulcolax supp # acute toxic metabolic encephalopathy, asterixis present. Started 02/13 -stopped cefepime held or stopped other sedating or deliriogenic medications including Topamax, gabapentin, tramadol -improved but per family not entirely resolved #intramuscular hematomas - coagulopathy from coumadin as well as thrombocytopenia. 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 Ordered warfarin 3 mg x 1 today. Usual dose 2 mg daily. Daily INR check #pancytopenia - new anemia, thrombocytopenia since 01/30/25, leukopenia since at least 10/2024 -anemia may be related to acute blood loss anemia from the hematomas, thrombocytopenia might be consumptive -peripheral smear reviewed - notably, no changes of sepsis or MDS -iron studies with inflammatory block, B12 643 and folate >22 -consulted Dr. Upton - discussed with her 02/09 - agrees with above, hold AC until hematomas stable, taper topamax in case causing cytopenias, follow up as scheduled with Dr. Frost, BMBx if nonresolving -CBC - remains pancytopenic reviewed 02/15. WBC trended up. - stopped Topamax #hyponatremia Na 133-->138-->133. chronic typically between 130-133 -132 today -monitor periodically #moderate AI, TR. Normal LVEF mildly dilated RV 02/2023 -updated TTE unchanged from 2022 #chronic prednisone 5 mg for PMR, fibromyalgia - currently stress dose pred. With recent hospitalizations probably needs slow taper #chronically elevated HS-troponin probably being caused by her severe pulmonary hypertension nonspecific potentially ischemic changes on EKG, unknown whether underlying CAD - reviewed recent cardiology clinic notes and no mention of CAD -TTE without new changes #slight elevation of bilirubin and AST - monitor. Nothing notable on CT A/P with contrast. Bilirubin probably related to hematomas -AM LFT #CKD-3 -Cr is stable at baseline #AYE intolerant of CPAP. Has been trying to get sleep study but keeps getting sick with various acute issues. Used to be on 2L nocturnal O2 but not recently #splenic lesions - has had lymphadenopathy as well in the past and seen by [facility] oncology - follow up with them #constipation with overflow incontinence - bid miralax, PRN dulcolax. Having stools now still lots on KUB see above #LLE skin tear - consulted WON. Per nursing it is small but weeping serosanguineous a lot because of edema anasarca - concern for skin issues from this. diuresed well on lasix 40 mg po daily, currently held. resume diuresis when nausea resolved admissions this year - October, last week She prefers DNR/DNI DVT ppx - as discussed above. Subtherapeutic INR with coumadin might be the best short term approach. She's had hematomas with enoxaparin planning for discharge to [facility] - once GI symptoms improve I updated her granddaughter and son at bedside today Admission and Anticipated Discharge Date Admission Date: February 08, 2025 Subjective Seen at bedside today. Fatigued. Expresses she has difficulty sleeping in the hospital. She reports that she is noting a toll on her mental status due to being in the hospital so long. She feels her breathing is comfortable and normal, although remains on 2 L of oxygen. Denies chest pain chest pressure shortness of breath. No change in her leg swelling. Denies change in hematomas. No lightheadedness or dizziness. Denies abdominal pain. She reports she would like to get out of the hospital and back to [facility] to soon as possible. Did review her risk of recurrent DVT/PE and high risk for VTE, balanced against her hematoma and bleeding. Did discuss that if she continues to have bleeding complications could consider a IVC filter, her and her daughter report they are not particularly interested in procedural interventions if at all possible. Noted that this does not prevent clots, but it is a last ditch attempt to catch them when anticoagulation is not feasible. Would like to try warfarin titrated to an INR of 22.5 if at all possible however unfortunately her hemoglobin again dropped today so will consult vascular Physical Exam Physical Exam: General: A&Ox3. NAD. Cooperative. Appears pale. Fatigued. HEENT: Atraumatic, normocephalic. Vision and hearing grossly intact Pulm: Diminished slight crackles in the bases without rales. symmetrical chest rise. No increase in work of breathing. No respiratory distress. Remains on 2 L oxygen Cardiac: RRR, -mrg. Radial pulses intact and symmetrical. Abdominal: Nontender. right lower quadrant with ecchymoses/hematoma Extremities: Left thigh and lower extremity with tracking ecchymoses/hematoma without tension/firmness. Bilateral lower extremity pitting edema Results & Data Results & Data Vital Signs (Past 12 Hours) Vital Signs Temp Pulse Pulse Resp BP Pulse Ox O2 Del Method 02/16/25 04:22 37.7 C H 93 H 18 106/56 L 94 Nasal Cannula 02/16/25 00:30 86 02/16/25 00:15 Nasal Cannula 02/15/25 23:00 36.4 C L 76 18 102/63 98 Nasal Cannula 02/15/25 19:48 36.4 C L 89 19 103/54 L 96 Nasal Cannula O2 Flow Rate 02/16/25 04:22 2 02/16/25 00:30 02/16/25 00:15 2 02/15/25 23:00 2 02/15/25 19:48 2 PG Care Time/CCT Total # of Minutes Spent Total Time Spent with Patient: Total time spent is greater than 50% in coordination of care (as documented) at patient's floor/unit and/or counseling patient: Coding Level of Care Code 06476 SUB INP/OBS CARE 3/50MIN Diagnoses Sepsis A41.9 Anticoagulant long-term use Z79.01 Intramuscular hematoma T14.8XXA Aortic valve insufficiency I35.1 Chronic pulmonary embolism I27.82
--- NOTE | 2025-02-16 08:23 | XRay Report ---
EXAM: XR KUB/Abdomen 1 view CLINICAL HISTORY: Possible ileus or SBO, follow-up. TECHNIQUE: X-ray image of the abdomen obtained in the supine position. COMPARISON: Prior CT dated 02/08/2025. FINDINGS: Gas Pattern: Fecal loading in the right colon is noted. There is no evidence of bowel obstruction or distention. Soft Tissues: Multiple metallic densities are present in the right hypochondrium, corresponding to metallic clips. The soft tissues of the abdomen appear normal, without evidence of masses. The liver, spleen, and kidneys are of normal size and position. Spondylotic changes are seen in the lumbar spine. Degenerative changes are present in the bilateral hip and sacroiliac joints. IMPRESSION: No acute abdominal abnormality is seen. Fecal loading in the right colon, unchanged. Electronically signed by Yaya Goodson 02-16-2025 08:23 AM
--- NOTE | 2025-02-16 12:16 | XRay Report ---
XR chest 1V portable CLINICAL HISTORY: chf serial exam COMPARISON STUDY: 02/08/2025 FINDINGS: Stable mild cardiomegaly with mild pulmonary vascular congestion. Stable mild pulmonary int erstitial prominence. Stable mild blunting of the costophrenic angles. No lobar consolidation. No pne umothorax. IMPRESSION: Stable mild CHF with possible trace pleural effusions. ACT 112: Negative or not required by law. Electronically signed by: Brenden Mcclendon M.D. 02/16/2025 12:15 PM
[2025-02-16] MEDS: FUROSEMIDE 40 MG TAB PO ONE (14:21)
[2025-02-17 06:01] LABS: Hematocrit (blood only) 23.8 % (37.0-47.0); Hemoglobin 7.7 g/dl (12.0-16.0); Immature Granulocytes # (auto) 0.11 K/uL (0.01-0.20); Immature Granulocytes % (auto) 3.8 %; Mean Corpuscular Hemoglobin 32.4 pg (25.0-34.0); Mean Corpuscular Volume 100.0 fL (80.0-100.0); Platelet Count 54 K/uL (130-400); RDW Standard Deviation 68.9 fL (36.4-46.3); Red Blood Count 2.38 M/uL (4.20-5.40); White Blood Count 2.89 K/ul (4.8-10.8)
[2025-02-17 06:16] LABS: Anion Gap 5.0 (3-11); Blood Urea Nitrogen 18.0 mg/dl (6-23); Calcium 8.1 mg/dl (8.6-10.3); Carbon Dioxide 33.0 mmol/L (21-32); Chloride 93.0 mmol/L (98-107); Creatinine Clr Calc Pharmacy 37.1 ml/min; Glucose 126.0 mg/dl (70-99(Fasting)); Potassium 3.4 mmol/L (3.5-5.1); Sodium 131.0 mmol/L (136-145)
[2025-02-17 06:26] LABS: INR 1.4 (0.9-1.1); Prothrombin Time 15.1 Seconds (9.0-12.0)
[2025-02-17 06:36] LABS: Polychromasia 1+
[2025-02-17] MEDS: POTASSIUM CHLORIDE CRTAB 20 MEQ TABCR PO STA (08:00)
[2025-02-17] MEDS: FUROSEMIDE 40 MG TAB PO ONE (08:01)
--- NOTE | 2025-02-17 13:50 | Hospitalist Progress Note ---
Date of Service February 17, 2025 Assessment & Plan (1) Sepsis: Plan: Eulalia is an 84-year-old female with a history of PEs on Coumadin, severe pulmonary hypertension, recent hospital admission for E. coli UTI and rhino/enterovirus who presented back to the hospital 02/08/2025 with worsening hypoxia and bilateral upper lobe opacities on CTchest. She also noted to have extensive ecchymosis of right lower abdominal wall and left groin/thigh tracking down the leg with CT consistent with intramuscular hematomas. Sepsis 2/2 pneumonia Sepsis resolved CTA 02/08: Unchanged chronic PE, no definite sign of new PE, mild pulmonary edema and small bilateral pleural effusions, bilateral upper lobe GGO Noro/rhinovirus detected 02/01, residual + 02/08. Supportive care Completed a course of cefepime for hap Stress dose prednisone decreased to 50 mg 02/13. Decrease by 5 mg every 34 days. Decreased to 10 mg 02/17/2025 TTE 02/09 unchanged; EF 65-70%. Mild AV sclerosis without stenosis, turbulent TR, moderate to severe TR, RV dilation, moderate AR. Similar to 2022. RVSP 60. May have prolonged recovery. Optimize fluid balance as best able, given additional Lasix dose today. Titrate oxygen goal 90%. She has a significant lower extremity venous stasis component in addition to her history of HFpEF Constipation, ileus versus early SBO KUB 02/15 with few mildly distended small bowel loops consistent with ileus versus early SBO Repeat KUB 02/16: Improved Has had a bowel movement in the last 24 hours, passing gas Continue bowel regimen Acute toxic metabolic encephalopathy, asterixis Started 02/13 Cefepime was discontinued Topamax, gabapentin, tramadol were discontinued Improving but not resolved ALT normal, minimal AST elevation, mildly elevated bilirubin. Spotcheck as needed. S/p prior cholecystectomy Intramuscular hematomas Interval worsening of right internal oblique suspected due to hematoma, new suspected subacute hemorrhage of the left pectineus muscle. 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 No ongoing bleeding/expansion at this time, goal to pursue low therapeutic INR with warfarin. INR 1.3 on 02/16. Unfortunately her hemoglobin again dropped today although no clear expansion of her hematoma. Given drop in hemoglobin hematomas did discuss with hematology. Agree with holding warfarin until stable. She is high risk for recurrent VTE however is also with increased risk of complications should a filter be pursued. Do not recommend a filter in absence of development of actual lower extremity VTE. Appreciate recommendations Hyponatremia Baseline typically around [id number] Trend Hypokalemia Repleted Chronic anemia Ferritin, transferrin saturation normal With hematomas as noted She has slight pinkness with some history of rectal prolapse/hemorrhoids but no evidence of significant GI bleeding and BUN is not markedly elevated suggestive of upper GI bleed Continue supportive care. Transfusion threshold 7.0. Continuing diuretics as above. If symptomatic or evidence of endorgan ischemia could transfuse to threshold of 8, this is not currently indicated PMR/fibromyalgia Chronic prednisone 5 mg at baseline Continue stress dose taper as noted above AYE intolerant of CPAP Has been unable to reach outpatient sleep study due to concurrent illnesses Intolerant of PPV Continue nocturnal oxygen as needed for now Anasarca Diuresis as tolerated. Lasix 40 mg continued Creatinine at baseline, 0.88 Chronic stable issues: Splenic lesions: With lymphadenopathy. Follows with [facility]ology, continue outpatient follow-up Left lower extremity skin tear: Continue wound care CODE STATUS: DNR/DNI (2) Anticoagulant long-term use: (3) Intramuscular hematoma: (4) Aortic valve insufficiency: (5) Chronic pulmonary embolism: Plan 84 y/o with history of PE's on coumadin, severe pulmonary hypertension and valvular heart disease who was recently hospitalized for E. coli UTI and rhinovirus/enterovirus, discharged home yesterday. During that admission she completed antibiotics with 7 days of rocephin for UTI and also course of azithromycin. She was diuresed a little and went home on oxygen, which is new for her. Admitted today with sepsis, worsened hypoxia and bilateral upper lobe GGOs on CTA. She also has extensive ecchymoses of right lower abdominal wall and left groin/thigh tracking down leg with intramuscular hematomas on CT. #sepsis due to suspected pneumonia. sepsis resolved. #hypotension - chronic, but was worse than baseline. BP improved and now at baseline #enterovirus/rhinovirus infection - detected 02/01, still positive 02/08. can't determine whether this was playing a role 02/01-02/08. Typical symptoms last 10 days. -completed a cource of cefepime for HAP -cont stress dose prednisone - - decreased to 15 mg 02/13. Same dose since ill today, but can go down by 5 mg every three days or so -TTE - unchanged from previous #nausea - new this morning and abdomen nontender without pain. -obtained LFT and lipase notable for mild bilirubin elevation to 2.4 -KUB - ileus vs early SBO and lots of stool -RUQ US - post CCE, no hollis dil Possibly obstipation, ileus. Ordered another KUB for AM as well as CMP. SBO seems unlikely - no emesis or abdominal pain. I don't think there is gallbladder pathology. She has had mild bilirubin elevations before probably from the hematomas, also could be from her TR -clear liquid diet -added compazine to zofran -dulcolax supp # acute toxic metabolic encephalopathy, asterixis present. Started 02/13 -stopped cefepime held or stopped other sedating or deliriogenic medications including Topamax, gabapentin, tramadol -improved but per family not entirely resolved #intramuscular hematomas - coagulopathy from coumadin as well as thrombocytopenia. #chronic warfarin anticoagulation for chronic pulmonary embolism, had recurrent PE while on DOAC #severe pulmonary hypertension - f/b pulmonary at [facility] - thromboembolic + AYE -L pectineus hematoma seems to preexist the recent previous admission, the R oblique hematoma could be related to enoxaparin injection site -hematomas and hemoglobin are stable, INR is still subtherapeutic at 1.2. Ordered warfarin 3 mg x 1 today. Usual dose 2 mg daily. Daily INR check #pancytopenia - new anemia, thrombocytopenia since 01/30/25, leukopenia since at least 10/2024 -anemia may be related to acute blood loss anemia from the hematomas, thrombocytopenia might be consumptive -peripheral smear reviewed - notably, no changes of sepsis or MDS -iron studies with inflammatory block, B12 643 and folate >22 -consulted Dr. Upton - discussed with her 02/09 - agrees with above, hold AC until hematomas stable, taper topamax in case causing cytopenias, follow up as scheduled with Dr. Frost, BMBx if nonresolving -CBC - remains pancytopenic reviewed 02/15. WBC trended up. - stopped Topamax #hyponatremia Na 133-->138-->133. chronic typically between 130-133 -132 today -monitor periodically #moderate AI, TR. Normal LVEF mildly dilated RV 02/2023 -updated TTE unchanged from 2022 #chronic prednisone 5 mg for PMR, fibromyalgia - currently stress dose pred. With recent hospitalizations probably needs slow taper #chronically elevated HS-troponin probably being caused by her severe pulmonary hypertension nonspecific potentially ischemic changes on EKG, unknown whether underlying CAD - reviewed recent cardiology clinic notes and no mention of CAD -TTE without new changes #slight elevation of bilirubin and AST - monitor. Nothing notable on CT A/P with contrast. Bilirubin probably related to hematomas -AM LFT #CKD-3 -Cr is stable at baseline #AYE intolerant of CPAP. Has been trying to get sleep study but keeps getting sick with various acute issues. Used to be on 2L nocturnal O2 but not recently #splenic lesions - has had lymphadenopathy as well in the past and seen by [facility] oncology - follow up with them #constipation with overflow incontinence - bid miralax, PRN dulcolax. Having stools now still lots on KUB see above #LLE skin tear - consulted [facility]. Per nursing it is small but weeping serosanguineous a lot because of edema anasarca - concern for skin issues from this. diuresed well on lasix 40 mg po daily, currently held. resume diuresis when nausea resolved admissions this year - October, last week She prefers DNR/DNI DVT ppx - as discussed above. Subtherapeutic INR with coumadin might be the best short term approach. She's had hematomas with enoxaparin planning [facility] - once GI symptoms improve I updated her granddaughter and son at bedside today Admission and Anticipated Discharge Date Admission Date: February 08, 2025 Subjective Seen the bedside this morning. Has a history of some prolapse with some pink missed bowel movements but no melena/bright red blood per rectum. She is eager for discharge [facility] to soon as possible. No lightheadedness or dizziness. She feels the swelling in her legs is similar to about the same today. No fevers chills or sweats. She would like to walk around the hallways a bit more with staff if possible. Physical Exam Physical Exam: General: A&Ox3. NAD. Cooperative. Appears pale. Fatigued. HEENT: Atraumatic, normocephalic. Vision and hearing grossly intact Pulm: Diminished slight crackles in the bases without rales. symmetrical chest rise. No increase in work of breathing. No respiratory distress. Remains on 2 L oxygen Cardiac: RRR, -mrg. Radial pulses intact and symmetrical. Abdominal: Nontender. right lower quadrant with ecchymoses/hematoma Extremities: Left thigh and lower extremity with tracking ecchymoses/hematoma without tension/firmness similar to prior exam. Bilateral lower extremity pitting edema, similar Results & Data Results & Data Vital Signs (Past 12 Hours) Vital Signs Temp Pulse Resp BP Pulse Ox O2 Del Method O2 Flow Rate 02/17/25 10:42 36.6 C 68 20 102/67 96 Nasal Cannula 2 02/17/25 08:00 Nasal Cannula 2 02/17/25 07:45 37.0 C 20 107/64 02/17/25 02:28 36.7 C 88 18 102/60 96 Nasal Cannula 2 PG Care Time/CCT Total # of Minutes Spent Total Time Spent with Patient: Total time spent is greater than 50% in coordination of care (as documented) at patient's floor/unit and/or counseling patient: Coding Level of Care Code 78475 SUB INP/OBS CARE 3/50MIN Diagnoses Sepsis A41.9 Anticoagulant long-term use Z79.01 Intramuscular hematoma T14.8XXA Aortic valve insufficiency I35.1 Chronic pulmonary embolism I27.82
[2025-02-17] MEDS: FUROSEMIDE INJ 20 MG/2 ML VIAL IV ONE (17:12)
[2025-02-18 12:28] LABS: Anion Gap 5.0 (3-11); Blood Urea Nitrogen 11.0 mg/dl (6-23); Calcium 7.8 mg/dl (8.6-10.3); Carbon Dioxide 32.0 mmol/L (21-32); Chloride 93.0 mmol/L (98-107); Creatinine Clr Calc Pharmacy 44.4 ml/min; Glucose 189.0 mg/dl (70-99(Fasting)); Potassium 3.4 mmol/L (3.5-5.1); Sodium 130.0 mmol/L (136-145)
[2025-02-18 12:39] LABS: Hematocrit (blood only) 25.0 % (37.0-47.0); Hemoglobin 8.2 g/dl (12.0-16.0); Mean Corpuscular Hemoglobin 33.1 pg (25.0-34.0); Mean Corpuscular Volume 100.8 fL (80.0-100.0); Platelet Count 54 K/uL (130-400); RDW Standard Deviation 70.7 fL (36.4-46.3); Red Blood Count 2.48 M/uL (4.20-5.40); White Blood Count 2.33 K/ul (4.8-10.8)
[2025-02-18] MEDS ORDERED: POTASSIUM CHLORIDE CRTAB 20 MEQ TABCR PO STA (12:51)
[2025-02-18 12:53] LABS: INR 1.4 (0.9-1.1); Prothrombin Time 14.8 Seconds (9.0-12.0)
[2025-02-18] MEDS ORDERED: Nursing to Pharmacy Communication SCH (13:15)
[2025-02-18 13:29] LABS: Immature Granulocytes # (auto) 0.11 K/uL (0.01-0.20); Immature Granulocytes % (auto) 4.7 %; Polychromasia 2+
--- NOTE | 2025-02-18 13:41 | Discharge Summary ---
Discharge Summary Date of Service February 18, 2025 Principal Dx & Hospital Course #1 = Principal Diagnosis (1) Sepsis: Eulalia is an 84-year-old female with a history of PEs on Coumadin, severe pulmonary hypertension, recent hospital admission for E. coli UTI and rhino/enterovirus who presented back to the hospital 02/08/2025 with worsening hypoxia and bilateral upper lobe opacities on CTchest. She also noted to have extensive ecchymosis of right lower abdominal wall and left groin/thigh tracking down the leg with CT consistent with intramuscular hematomas. To Do As Outpatient: 1. Continue prednisone 10 mg daily, taper down to 5 mg after 3-4 days if doing well 2. Hold warfarin/anticoagulation. She is a high recurrent VTE risk with history of recurrent PE. Unfortunately she has had hemodynamically significant bruising and extensive bruising which precludes warfarin use at this time. She had hematoma formation at the site of prior Lovenox injections. Her case was reviewed with heme-onc, should hold warfarin for at least 1 week and then if hemoglobin is stable may trial a very slow uptrend back to low therapeutic range without bridge. Extensive discussions were had with the patient, her granddaughter, and hematology regarding complicated case. Did also specifically discuss IVC filter with hematology. Given endothelial disruption and newly of anticoagulation at this time IVC filter is not indicated and would increase her risk of clot. Nicholasy if she has a recurrent VTE then will need to be reevaluated for safety of anticoagulation at that time, or alternatively a filter at that time. 3. Continue Lasix 40 mg daily, adjust as clinically indicated. Patient has had slow pulmonary recovery complicated by sepsis and pneumonia. She did well with diuresis and was with stable oxygen requirements at time of discharge. She was saturating 96% on room air, and has oxygen at about baseline as needed either at rest or with exertion. Maintain sats goal 90-94% 4. Routine follow-up with oncology, Dr. Frost 5. Discontinue topamax. ?contribution to pancytopenia. Plt >50k, tranfusion was not indicated. Eulalia is a high readmission risk due to her frailty, bleeding and VTE risk, and prolonged hospitalization. She is having a slow recovery following viral pneumonia. I did review her case personally with her and her granddaughter, and with on-call physician at [facility] due to these risks. Eulalia and her daughter strongly prefer to progress out of the hospital if she is at all reasonably stable for this, especially noting that prolonged hospitalization is contributing to developing depression. Sepsis 2/2 pneumonia Sepsis resolved CTA 02/08: Unchanged chronic PE in the subsegmental lobes since 2021, simlar study to 10/2024, no new PE, mild pulmonary edema and small bilateral pleural effusions, bilateral upper lobe GGO Noro/rhinovirus detected 02/01, residual + 02/08. Supportive care Completed a course of cefepime for hap Stress dose prednisone decreased to 02/13. Decrease by 5 mg every 34 days. Decreased to 10 mg 02/17/2025 TTE 02/09 unchanged; EF 65-70%. Mild AV sclerosis without stenosis, turbulent TR, moderate to severe TR, RV dilation, moderate AR. Similar to 2022. RVSP 60. May have prolonged recovery. Optimize fluid balance as best able, given additional Lasix dose today. Titrate oxygen goal 90%. She has a significant lower extremity venous stasis component in addition to her history of HFpEF Constipation, ileus versus early SBO KUB 02/15 with few mildly distended small bowel loops consistent with ileus versus early SBO Repeat KUB 02/16: Improved Has had a bowel movement in the last 24 hours, passing gas Continue bowel regimen Acute toxic metabolic encephalopathy, asterixis Started 02/13 Cefepime was discontinued Topamax, gabapentin, tramadol were discontinued Mentation improved, patient mentating normally at baseline although fatigued/frail ALT normal, minimal AST elevation, mildly elevated bilirubin in the setting of large hematomas. S/p prior cholecystectomy Intramuscular hematomas Interval worsening of right internal oblique suspected due to hematoma, new suspected subacute hemorrhage of the left pectineus muscle. 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 She had PE in 2021 with recurrence in 2022 while on a DOAC and was switched to warfarin as a result. She has substantial bruising circumferentially around her lower back and flank bilaterally and down the left leg. This is stable 02/18 and hemoglobin is spontaneously uptrending. Hold warfarin for 1 week, then resume p.o. Do not bridge. Titrate slowly with goal low therapeutic range 22.5 Ferritin, transferrin saturation normal She has slight pinkness with some history of rectal prolapse/hemorrhoids but no evidence of significant GI bleeding and BUN is not markedly elevated suggestive of upper GI bleed Hyponatremia Baseline typically around [id number] Recommend repeat blood work within approximately 1 week Hypokalemia Repleted. Trend weekly. PMR/fibromyalgia Chronic prednisone 5 mg at baseline, currently on prednisone taper AYE intolerant of CPAP Has been unable to reach outpatient sleep study due to concurrent illnesses Intolerant of PPV Continue nocturnal oxygen as needed for now Bicarb normal at time of discharge. On room air at discharge Anasarca Diuresis as tolerated. Lasix 40 mg continued Creatinine at baseline, 0.68 on discharge Chronic stable issues: Splenic lesions: With lymphadenopathy. Follows with Dr. Frost. Left lower extremity skin tear: Continue wound care CODE STATUS: DNR/DNI (2) Anticoagulant long-term use: (3) Intramuscular hematoma: (4) Aortic valve insufficiency: (5) Chronic pulmonary embolism: Admission HPI Per Admitting Provider 84 y/o with history of PE's on coumadin who was recently hospitalized for E. coli UTI and rhinovirus/enterovirus, discharged home yesterday. During that admission she completed antibiotics with 7 days of rocephin for UTI and also course of azithromycin. She was diuresed a little and went home on oxygen, which is new for her. Today she was brought in by EMS after she was so weak family had trouble getting her to the bathroom. She continues to have cough productive of yellow sputum this seems relatively unchanged to slightly improved. She doesn't feel short of breath but is more hypoxic. She has chronic chest wall pain from fibromyalgia unchanged. She's had L groin pain since prior to previous admission without any injury/trauma. Now with severe ecchymosis from left groin tracking down leg that is dark purple some yellowing. The right abdominal bruising didn't start until after the lovenox shots given in hospital. She remains constipated. Some additional history is provided by her granddaughter at bedside. In ED treated for sepsis - Febrile to 39.6, HR 87-110, BP soft 84/42-114/66 though similar to last admission, requiring 3L O2 CTA chest with chronic PEs and bilateral upper lobe GGOs. CT abdomen notable for subacute hematoma L pectineus and worsening hematoma of right internal obliques increased from 2.4x1 cm --> 7.2x2.4 cm Chronic pancytopenia, Hg down about 1 point compared to a week ago. Mild Tn elevation. Procal negative at <0.2 2L IV crystalloid, IV cefepime, MRSA nares negative so MRSA coverage deferred Discharge Exam General: A&Ox3. NAD. Cooperative. Appears pale. Fatigued. HEENT: Atraumatic, normocephalic. Vision and hearing grossly intact Pulm: Diminished slight crackles in the bases without rales. symmetrical chest rise. No increase in work of breathing. No respiratory distress. On room air. Cardiac: RRR, -mrg. Radial pulses intact and symmetrical. Abdominal: Nontender. right lower quadrant with ecchymoses/hematoma Pelvis: Circumferential hematoma/bruising extending around the pelvis/flank and lower back similar to prior. No tense hematoma. Extremities: Left thigh and lower extremity with tracking ecchymoses/hematoma without tension/firmness similar to prior exam. Bilateral lower extremity pitting edema, improved from prior. Discharge Plan Discharge Items Patient Disposition: Transfer [facility] Hospital Reason For Visit: SEPSIS Discharge Diagnosis: Sepsis Pneumonia CHF Acute blood loss anemia Condition on Discharge: Fair Activity: Resume your previous activity Non-emergency contact: Primary Care Provider Call non-emergency contact if: you have any medication questions Follow-up/Referrals: Joe Frost MD [Physician] - Gege Alexis MD [Primary Care Provider] - Diet: Regular Addtl Attending Provider Instructions: You are seen in the hospital for acute respiratory failure, acute hematoma/bleeding, pancytopenia, and pneumonia. You had extensive bleeding and hematomas including in the left pectineus, right oblique, and with bruising/bleeding circumferentially around your pelvis/flank and back. Your warfarin was held. Your blood counts were stable and spontaneously uptrending day of discharge. Your blood level was 8.2 at time of discharge. You had acute respiratory failure which is likely combination from fluid overload, and suspected pneumonia. Your sepsis resolved. You did have 1/4 blood culture bottles which were positive for strep salivarius/strep viridans which was thought to be contaminant however would have been covered by the antibiotics received during admission. You have also had entero-/rhinovirus viral pneumonia. Your breathing slowly improved and you were weaned back to room air at time of discharge. You are on stress dose steroids which have been tapered. Please continue prednisone 10 mg and taper this back to your baseline 5 mg in 3-4 days if doing well. An ultrasound of your heart was unchanged. You have transient pancytopenia which was thought to be due to your acute illness. If this does not improve in the future it is recommended you follow-up with hematology/oncology and a bone marrow biopsy could be considered however this was not recommended at this time. Your Topamax was tapered and discontinued as it can contribute to pancytopenia. Your platlet count was >30k during admit and platelet transfusion was not recommended. There is a high risk of recurrent clotting while off warfarin however warfarin is currently precluded due to your extensive severe bleeding. It is recommended to hold off on warfarin for approximately 1 week and then restart this if your blood counts are stable in approximately 3-4 days. It was recommended by your solar panel installer does not have a bridge, to slowly use warfarin to bring your INR up to around 22.5. A vena cava filter to help catch clots was discussed however this does not prevent blood clots from forming and can ncrease your short-term risk of clots and was not recommended. Please take a vitamin B 12 and folic acid supplement daily to help promote blood cell production. If you develop any new or worsening symptoms including fever, chills, sweats, chest pain, chest pressure, difficulty breathing, uncontrolled nausea/vomiting, rash, wheezing, passing out or nearly passing out, bleeding, black/bloody bowel movements, or other new or concerning symptoms please call your primary care physician, or call 911 for re-evaluation in the emergency department if you are very concerned. Pending Studies at Discharge: Yes Stand-Alone Forms: My [facility] Skilled Items Patient informed of condition?: Yes DNR: Yes Discharge Level of Care: Acute rehab Communicable Disease: No Discharge Prognosis: Improving Lines: None Urinary Catheter: No Medications and DC Order Prescriptions: New prednisone 10 mg Tablet 10 mg PO QAM Qty: 3 0RF folic acid 400 mcg tablet 0.4 mg PO DAILY Qty: 30 0RF cyanocobalamin (vitamin B-12) 1,000 mcg capsule 1,000 mcg PO DAILY Qty: 30 0RF Continued Orazinc 25 mg zinc (110 mg) tablet 25 mg PO QAM acetaminophen 500 mg tablet 500 mg PO DAILY PRN (Reason: Pain) fluticasone furoate-vilanterol [Breo Ellipta] 100-25 mcg/dose blister with device 1 inh inhalation QPM Qty: 60 3RF levothyroxine 75 mcg tablet 75 mcg PO DAILYBB Qty: 90 3RF latanoprost 0.005 % drops 1 drops OPB QPM trazodone 100 mg tablet 50 mg PO QPM Rx Instructions: Patient only taking 50mg at bedtime (03/05/2023) Systane Gel 0.3 % gel 1 drp OPR BID Rx Instructions: Uses in Right eye Systane Ultra 0.4-0.3 % drops 1 drp OPL BID Rx Instructions: uses in left eye albuterol sulfate 90 mcg/actuation HFA aerosol inhaler 2 puff INH Q4H PRN (Reason: shortness of breath or wheezing) Qty: 1 11RF tramadol 50 mg tablet 50 mg PO AMHS PRN (Reason: pain) Qty: 60 0RF pantoprazole 40 mg tablet,delayed release (DR/EC) 40 mg PO BID 90 Days Qty: 180 3RF multivitamin Tablet 1 tab PO QAM dorzolamide-timolol 22.3-6.8 mg/mL drops 1 drp OPB BID cholecalciferol (vitamin D3) [Vitamin D3] 25 mcg (1,000 unit) Tablet 100 mcg PO QAM fexofenadine 180 mg Tablet 180 mg PO QAM magnesium 250 mg Tablet 250 mg PO QAM docusate sodium 100 mg capsule 100 mg PO QAM PRN (Reason: Constipation) gabapentin 300 mg capsule 300 mg PO BID duloxetine 60 mg capsule,delayed release(DR/EC) 120 mg PO QAM famotidine 20 mg tablet 20 mg PO HS montelukast 10 mg tablet 10 mg PO HS benzonatate 100 mg Capsule 100 mg PO TID PRN (Reason: cough) Qty: 30 0RF dextromethorphan-guaifenesin [Robitussin Cough-Chest Polo DM] 5-100 mg/5 mL Liquid 10 ml PO Q6H PRN (Reason: cough) Qty: 100 0RF furosemide 20 mg tablet 20 mg PO QAM Qty: 0 0RF Held warfarin 2 mg tablet 2 mg PO DAILY Hold Instructions: Resume on 02/22/25. prednisone 5 mg tablet 5 mg PO DAILY Hold Instructions: Resume on 02/22/25. Discontinued topiramate 50 mg tablet 50 mg PO BID Qty: 60 5RF Discharge Orders: Discharge Order (Routine); Ordered 02/18/25 Ordered By: Dalton Villatoro Admission Data Admit Date/Time: 02/08/25 21:25 Attending Provider: Dalton Villatoro Admit Provider: Rosemary Raymundo Primary Care Provider: Gege Alexis Other Providers: Rosemary Raymundo; Eunice Upton Hospital Stay Data Consultations 02/08/25 18:04 ED Decision to Admit Stat 02/09/25 13:57 Consult Hematology Routine Diagnostic Imagining Performed 02/08/25 15:57 CT abd pelvis IV con only Stat CT for pulmonary embolism PE [CT angio chest PE protocol] Stat 02/15/25 15:52 US abdomen limited Stat Discharge Instructions Given to Patient (Per Discharging Provider) You are seen in the hospital for acute respiratory failure, acute hematoma/bleeding, pancytopenia, and pneumonia. You had extensive bleeding and hematomas including in the left pectineus, right oblique, and with bruising/bleeding circumferentially around your pelvis/flank and back. Your warfarin was held. Your blood counts were stable and spontaneously uptrending day of discharge. Your blood level was 8.2 at time of discharge. You had acute respiratory failure which is likely combination from fluid overload, and suspected pneumonia. Your sepsis resolved. You did have 1/4 blood culture bottles which were positive for strep salivarius/strep viridans which was thought to be contaminant however would have been covered by the antibiotics received during admission. You have also had entero-/rhinovirus viral pneumonia. Your breathing slowly improved and you were weaned back to room air at time of discharge. You are on stress dose steroids which have been tapered. Please continue prednisone 10 mg and taper this back to your baseline 5 mg in 3-4 days if doing well. An ultrasound of your heart was unchanged. You have transient pancytopenia which was thought to be due to your acute illness. If this does not improve in the future it is recommended you follow-up with hematology/oncology and a bone marrow biopsy could be considered however this was not recommended at this time. Your Topamax was tapered and discontinued as it can contribute to pancytopenia. Your platlet count was >30k during admit and platelet transfusion was not recommended. There is a high risk of recurrent clotting while off warfarin however warfarin is currently precluded due to your extensive severe bleeding. It is recommended to hold off on warfarin for approximately 1 week and then restart this if your blood counts are stable in approximately 3-4 days. It was recommended by your solar panel installer does not have a bridge, to slowly use warfarin to bring your INR up to around 22.5. A vena cava filter to help catch clots was discussed however this does not prevent blood clots from forming and can ncrease your short-term risk of clots and was not recommended. Please take a vitamin B 12 and folic acid supplement daily to help promote blood cell production. If you develop any new or worsening symptoms including fever, chills, sweats, chest pain, chest pressure, difficulty breathing, uncontrolled nausea/vomiting, rash, wheezing, passing out or nearly passing out, bleeding, black/bloody bowel movements, or other new or concerning symptoms please call your primary care physician, or call 911 for re-evaluation in the emergency department if you are very concerned. Total Time Total Time Spent Total Time Spent (In Minutes): Time spend day of discharge 65 minutes including direct patient care, documentation, review of labs and images, and coordination of care. Coding Diagnoses Sepsis A41.9 Anticoagulant long-term use Z79.01 Intramuscular hematoma T14.8XXA Aortic valve insufficiency I35.1 Chronic pulmonary embolism I27.82
[2025-02-18] MEDS: POTASSIUM CHLORIDE 20 MEQ/15 ML UDC PO STA (14:04)
--- NOTE | 2025-02-18 15:05 | Hospitalist Progress Note ---
Date of Service February 18, 2025 Assessment & Plan (1) Sepsis: Plan: Eulalia is an 84-year-old female with a history of PEs on Coumadin, severe pulmonary hypertension, recent hospital admission for E. coli UTI and rhino/enterovirus who presented back to the hospital 02/08/2025 with worsening hypoxia and bilateral upper lobe opacities on CTchest. She also noted to have extensive ecchymosis of right lower abdominal wall and left groin/thigh tracking down the leg with CT consistent with intramuscular hematomas. Sepsis 2/2 pneumonia Sepsis resolved CTA 02/08: Unchanged chronic PE in the subsegmental lobes since 2021, simlar study to 10/2024, no new PE, mild pulmonary edema and small bilateral pleural effusions, bilateral upper lobe GGO Noro/rhinovirus detected 02/01, residual + 02/08. Supportive care Completed a course of cefepime for hap Stress dose prednisone decreased to 02/13. Decrease by 5 mg every 34 days. Decreased to 10 mg 02/17/2025 TTE 02/09 unchanged; EF 65-70%. Mild AV sclerosis without stenosis, turbulent TR, moderate to severe TR, RV dilation, moderate AR. Similar to 2022. RVSP 60. She may have prolonged respiratory recovery Constipation, ileus versus early SBO-improved KUB 02/15 with few mildly distended small bowel loops consistent with ileus versus early SBO. Clears while monitoring. Has progressed and diet advanced Has had a bowel movement in the last 24 hours, passing gas Continue bowel regimen. Diet advanced with improvement of bowel function. Boost ordered for protein supplementation Acute toxic metabolic encephalopathy, asterixis Started 02/13 Cefepime was discontinued Topamax, gabapentin, tramadol were discontinued Mentation improved, patient mentating normally at baseline although fatigued/frail ALT normal, minimal AST elevation, mildly elevated bilirubin in the setting of large hematomas. S/p prior cholecystectomy Intramuscular hematomas Interval worsening of right internal oblique suspected due to hematoma, new suspected subacute hemorrhage of the left pectineus muscle. 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 She had PE in 2021 with recurrence in 2023 while on a DOAC and was switched to warfarin as a result. She has substantial bruising circumferentially around her lower back and flank bilaterally and down the left leg. This is stable 02/18 and hemoglobin is spontaneously uptrending. Hold warfarin for 1 week, then resume p.o. Do not bridge. Titrate slowly with goal low therapeutic range 22.5 Ferritin, transferrin saturation normal She has slight pinkness with some history of rectal prolapse/hemorrhoids but no evidence of significant GI bleeding and BUN is not markedly elevated suggestive of upper GI bleed. Was transiently kept on clears after ileus to ensure no worsening GI bleeding, subsequently advance to regular diet. She has not had recurrent hemodynamically significant bleeding and hemoglobin was uptrending 02/18 Hyponatremia Baseline typically around [id number] Hypokalemia Repleted. Trend weekly. PMR/fibromyalgia Chronic prednisone 5 mg at baseline, currently on prednisone taper AYE intolerant of CPAP Has been unable to reach outpatient sleep study due to concurrent illnesses Intolerant of PPV Continue nocturnal oxygen as needed for now Bicarb normal at time of discharge. On room air at discharge Anasarca Diuresis as tolerated. Lasix 40 mg continued Creatinine at baseline, 0.68 on discharge Chronic stable issues: Splenic lesions: With lymphadenopathy. Follows with Dr. Frost. Left lower extremity skin tear: Continue wound care CODE STATUS: DNR/DNI (2) Anticoagulant long-term use: (3) Intramuscular hematoma: (4) Aortic valve insufficiency: (5) Chronic pulmonary embolism: Admission and Anticipated Discharge Date Admission Date: February 08, 2025 Subjective Seen at the bedside this morning. She was much more energetic however is extremely tired and frail and was not strong enough to make the transition at this time. Her son is coming in to see her tomorrow, and granddaughter was present at bedside. He notes that several days ago [place] told him that she felt ready to pass and be with her . She does feel ready to try to eat a little bit more today, and is willing to try boost. Had earlier concern for SBO/ileus had been on clears, diet has been advanced and boost ordered. Physical Exam Physical Exam: General: A&Ox3. NAD. Cooperative. Appears pale. Fatigued. HEENT: Atraumatic, normocephalic. Vision and hearing grossly intact Pulm: Diminished slight crackles in the bases without rales. symmetrical chest rise. No increase in work of breathing. No respiratory distress. On room air. Cardiac: RRR, -mrg. Radial pulses intact and symmetrical. Abdominal: Nontender. right lower quadrant with ecchymoses/hematoma Pelvis: Circumferential hematoma/bruising extending around the pelvis/flank and lower back similar to prior. No tense hematoma. Extremities: Left thigh and lower extremity with tracking ecchymoses/hematoma without tension/firmness similar to prior exam. Bilateral lower extremity pitting edema, improved from prior. Results & Data Results & Data Vital Signs (Past 12 Hours) Vital Signs Temp Pulse Pulse Resp BP BP Pulse Ox 02/18/25 14:12 36.9 C 81 96 H 18 109/66 95/57 L 96 02/18/25 12:50 36.9 C 81 96 H 18 109/66 96 02/18/25 08:27 36.7 C 97 H 17 101/63 92 O2 Del Method O2 Flow Rate 02/18/25 14:12 02/18/25 12:50 Room Air 02/18/25 08:27 Nasal Cannula 2 PG Care Time/CCT Total # of Minutes Spent Total Time Spent with Patient: Total time spent is greater than 50% in coordination of care (as documented) at patient's floor/unit and/or counseling patient: Coding Level of Care Code 80005 SUB INP/OBS CARE 3/50MIN Diagnoses Sepsis A41.9 Anticoagulant long-term use Z79.01 Intramuscular hematoma T14.8XXA Aortic valve insufficiency I35.1 Chronic pulmonary embolism I27.82
[2025-02-18] MEDS: FOLIC ACID 1 MG TAB PO SCH (16:17)
[2025-02-18] MEDS: CYANOCOBALAMIN (B-12) 100 MCG TABLET PO SCH (16:17)
[2025-02-19 08:27] LABS: Hematocrit (blood only) 29.9 % (37.0-47.0); Hemoglobin 9.7 g/dl (12.0-16.0); Mean Corpuscular Hemoglobin 33.2 pg (25.0-34.0); Mean Corpuscular Volume 102.4 fL (80.0-100.0); Platelet Count 66 K/uL (130-400); RDW Standard Deviation 73.8 fL (36.4-46.3); Red Blood Count 2.92 M/uL (4.20-5.40); White Blood Count 2.37 K/ul (4.8-10.8)
[2025-02-19 08:51] LABS: INR 1.2 (0.9-1.1); Prothrombin Time 13.3 Seconds (9.0-12.0)
[2025-02-19 08:59] LABS: Immature Granulocytes # (auto) 0.05 K/uL (0.01-0.20); Immature Granulocytes % (auto) 2.1 %; Polychromasia 2+
[2025-02-19 09:07] LABS: Anion Gap 5.0 (3-11); Blood Urea Nitrogen 12.0 mg/dl (6-23); Calcium 8.0 mg/dl (8.6-10.3); Carbon Dioxide 33.0 mmol/L (21-32); Chloride 90.0 mmol/L (98-107); Creatinine Clr Calc Pharmacy 40.3 ml/min; Glucose 129.0 mg/dl (70-99(Fasting)); Potassium 3.5 mmol/L (3.5-5.1); Sodium 128.0 mmol/L (136-145)
--- NOTE | 2025-02-19 16:02 | Hospitalist Progress Note ---
Date of Service February 19, 2025 Assessment & Plan (1) Sepsis: Plan: Eulalia is an 84-year-old female with a history of PEs on Coumadin, severe pulmonary hypertension, recent hospital admission for E. coli UTI and rhino/enterovirus who presented back to the hospital 02/08/2025 with worsening hypoxia and bilateral upper lobe opacities on CTchest. She also noted to have extensive ecchymosis of right lower abdominal wall and left groin/thigh tracking down the leg with CT consistent with intramuscular hematomas. Sepsis 2/2 pneumonia Sepsis resolved CTA 02/08: Unchanged chronic PE in the subsegmental lobes since 2021, simlar study to 10/2024, no new PE, mild pulmonary edema and small bilateral pleural effusions, bilateral upper lobe GGO Noro/rhinovirus detected 02/01, residual + 02/08. Supportive care Completed a course of cefepime for hap Stress dose prednisone decreased to 02/13. Decrease by 5 mg every 34 days. Decreased to 10 mg 02/17/2025 TTE 02/09 unchanged; EF 65-70%. Mild AV sclerosis without stenosis, turbulent TR, moderate to severe TR, RV dilation, moderate AR. Similar to 2022. RVSP 60. She may have prolonged respiratory recovery Constipation, ileus versus early SBO-improved Resolved Continue bowel regimen. Diet advanced with improvement of bowel function. Boost ordered for protein supplementation tolerating this well 02/19 Acute toxic metabolic encephalopathy, asterixis Started 02/13 Cefepime was discontinued Topamax, gabapentin, tramadol were discontinued Mentation improved, patient mentating normally at baseline although fatigued/frail ALT normal, minimal AST elevation, mildly elevated bilirubin in the setting of large hematomas. S/p prior cholecystectomy Improved Intramuscular hematomas Interval worsening of right internal oblique suspected due to hematoma, new suspected subacute hemorrhage of the left pectineus muscle. 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 She had PE in 2021 with recurrence in 2022 while on a DOAC and was switched to warfarin as a result. She has substantial bruising circumferentially around her lower back and flank bilaterally and down the left leg. This is stable 02/18 and hemoglobin is spontaneously uptrending again on 02/19 Hold warfarin for 1 week, then resume p.o. Do not bridge. Titrate slowly with goal low therapeutic range 22.5 Ferritin, transferrin saturation normal She has slight pinkness with some history of rectal prolapse/hemorrhoids but no evidence of significant GI bleeding and BUN is not markedly elevated suggestive of upper GI bleed. Was transiently kept on clears after ileus to ensure no worsening GI bleeding, subsequently advance to regular diet. She has not had recurrent hemodynamically significant bleeding and hemoglobin was uptrending 02/18 Hyponatremia Baseline typically around [id number]. Slight decrease 02/19, trended. Likely some solute depletion although also still appears with net free water positive. Oral Lasix daily continued Hypokalemia Normal 02/19. Trend periodically PMR/fibromyalgia Chronic prednisone 5 mg at baseline, currently on prednisone taper AYE intolerant of CPAP Has been unable to reach outpatient sleep study due to concurrent illnesses Intolerant of PPV Continue nocturnal oxygen as needed for now Anasarca Creatinine at baseline Lasix continued Chronic stable issues: Splenic lesions: With lymphadenopathy. Follows with Dr. Frost. Left lower extremity skin tear: Continue wound care CODE STATUS: DNR/DNI (2) Anticoagulant long-term use: (3) Intramuscular hematoma: (4) Aortic valve insufficiency: (5) Chronic pulmonary embolism: Admission and Anticipated Discharge Date Admission Date: February 08, 2025 Subjective Feels much better today. Denies shortness of breath or difficulty breathing. Color and energy are both much better. Tolerated breakfast and lunch well. Is tolerating boost. Denies recurrent bleeding. Denies pain. Extensive discussion with family, see ACP note Physical Exam Physical Exam: General: A&Ox3. NAD. Cooperative. Color is better today HEENT: Atraumatic, normocephalic. Vision and hearing grossly intact Pulm: CTAB A&P. -wheezes, -rales, -rhonchi. Symmetrical chest rise. No increase in work of breathing. No respiratory distress. Cardiac: RRR, +sm. Radial pulses intact and symmetrical. Skin/abdomen: Extensive hematoma wrapping circumferentially around the posterior back and flanks worse on the left than the right, and with extensive hematoma down the proximal thigh. Unchanged from prior exam. Results & Data Results & Data Vital Signs (Past 12 Hours) Vital Signs Temp Pulse Pulse Resp BP Pulse Ox O2 Del Method 02/19/25 13:03 82 02/19/25 11:52 36.8 C 73 20 92/53 L 97 Room Air 02/19/25 08:45 Nasal Cannula 02/19/25 08:40 36.3 C L 80 18 113/70 94 Nasal Cannula 02/19/25 05:31 73 O2 Flow Rate 02/19/25 13:03 02/19/25 11:52 02/19/25 08:45 2 02/19/25 08:40 2 02/19/25 05:31 PG Care Time/CCT Total # of Minutes Spent Total Time Spent with Patient: Total time spent is greater than 50% in coordination of care (as documented) at patient's floor/unit and/or counseling patient: Coding Level of Care Code 67195 SUB INP/OBS CARE 3/50MIN Diagnoses Sepsis A41.9 Anticoagulant long-term use Z79.01 Intramuscular hematoma T14.8XXA Aortic valve insufficiency I35.1 Chronic pulmonary embolism I27.82
--- NOTE | 2025-02-19 16:21 | Advance Care Plan Prog Note ---
Advanced Care Planning Note Date of Discussion February 19, 2025 ACP Discussion Diagnoses requiring ACP discussion: History of recurrent DVT/PE, history of GI bleed, intramuscular hemorrhage, acute blood loss anemia Number Seshan with patient and her family including her granddaughter Dyan and son was had at the bedside. Reviewed extensively her medical condition, treatment, treatment options, and ongoing concerns. Reexamination of patient was performed with family at bedside as Eulalia had had expansion of her bleeding since they had seen last although this has been stable in the last 48 hours. Family appreciative of care and discussion. Most concerning is her high risk of bleeding, extensive hematomas and ongoing bleeding risk balanced against her history of recurrent PEs which although the last was more than a year ago did occur on Eliquis since it is just a high h ypercoagulable state and high risk of forming another clot while on monitoring. Reviewed current plan which is to hold anticoagulation until her blood levels are consistently stable for a week, defer filter evaluation after risk/benefits discussion, and resume warfarin if stable. Additional concern is she has had significant frailty while admitted. At time of bedside assessment she has good energy, and good color and looks very similar to when she was being prepared for discharge on 02/18, however granddaughter also notes that with relatively minimal exertion she was very rapidly exerted to the point where she was so exhausted she could not open her eyes and not appear safe for discharge. On open ended conversation Eulalia reports that it is important for her to be comfortable, and that she would be comfortable "in good hands, being in Neil's hands ". She is appreciative of all the care she has had while here and would like to try to get stronger, but that comfort is also important to her and is unsure that it would be worth it to go through another similar hospitalization if this happened again early, let alone if she were in a worse state of health. She reports her 2 biggest priorities are being comfortable, and being around family. She reports it is not as important to her where she is around her family and does not have a strong preference of being at home, rehab, or nursing facility as long as she can be visited by family. She expresses that she appreciates the efforts to get her better and the care she has gotten here, but is not sure that it was worth the discomfort. Total discussion was around 40 minutes. Following this family did talk privately, and then updated care team of wishes.Granddaughter does express concerns and fear that while she looks good at time of conversation, she fears that she would be able to provide her to care for she would require an condition that she looked at the day prior. They have talked with case management after discussion as a family to request SNF placement. Additional questions from her granddaughter at time of update. Eulalia feels that she would not want to go through this again however also acknowledges that she had been through a lot, showing signs of recovery, and feeling much better today than previously. She and her family do not feel that she is a good fit for acute rehab, and would like to pursue [facility] where she can have less intense therapy. While they were initially considering comfort measures, they would like to reevaluate these based on her progression. Eulalia at bedside expresses that she would not want aggressive treatment or to go through this again, agrees with SNF placement at this time. Status Resuscitation Status DNR/DNI No Resuscitation Total Time I spent a total of [*] minutes was spent on this discussion, including counseling, answering questions, and completing, if any, pertinent advanced care planning forms/documents.
[2025-02-20 06:38] LABS: Hematocrit (blood only) 25.8 % (37.0-47.0); Hemoglobin 8.3 g/dl (12.0-16.0); Mean Corpuscular Hemoglobin 32.7 pg (25.0-34.0); Mean Corpuscular Volume 101.6 fL (80.0-100.0); Platelet Count 54 K/uL (130-400); RDW Standard Deviation 72.3 fL (36.4-46.3); Red Blood Count 2.54 M/uL (4.20-5.40); White Blood Count 1.80 K/ul (4.8-10.8)
[2025-02-20 07:05] LABS: Anion Gap 5.0 (3-11); Blood Urea Nitrogen 13.0 mg/dl (6-23); Calcium 7.8 mg/dl (8.6-10.3); Carbon Dioxide 33.0 mmol/L (21-32); Chloride 91.0 mmol/L (98-107); Creatinine Clr Calc Pharmacy 48.7 ml/min; Glucose 119.0 mg/dl (70-99(Fasting)); INR 1.2 (0.9-1.1); Potassium 3.2 mmol/L (3.5-5.1); Prothrombin Time 12.9 Seconds (9.0-12.0); Sodium 129.0 mmol/L (136-145)
[2025-02-20 07:59] LABS: Giant Platelets 1+; Immature Granulocytes # (auto) 0.04 K/uL (0.01-0.20); Immature Granulocytes % (auto) 2.2 %; Macrocytosis Present; Polychromasia 1+
--- NOTE | 2025-02-20 12:21 | Discharge Summary ---
Discharge Summary Date of Service February 20, 2025 Principal Dx & Hospital Course #1 = Principal Diagnosis (1) Sepsis: Eulalia is an 84-year-old female with a history of PEs on Coumadin, severe pulmonary hypertension, recent hospital admission for E. coli UTI and rhino/enterovirus who presented back to the hospital 02/08/2025 with worsening hypoxia and bilateral upper lobe opacities on CTchest. She also noted to have extensive ecchymosis of right lower abdominal wall and left groin/thigh tracking down the leg with CT consistent with intramuscular hematomas. Sepsis 2/2 pneumonia Sepsis resolved CTA 02/08: Unchanged chronic PE in the subsegmental lobes since 2021, simlar study to 10/2024, no new PE, mild pulmonary edema and small bilateral pleural effusions, bilateral upper lobe GGO Noro/rhinovirus detected 02/01, residual + 02/08. Supportive care Completed a course of cefepime for hap Stress dose prednisone decreased to 02/13. Decrease by 5 mg every 34 days. Decreased to 10 mg 02/17/2025 TTE 02/09 unchanged; EF 65-70%. Mild AV sclerosis without stenosis, turbulent TR, moderate to severe TR, RV dilation, moderate AR. Similar to 2022. RVSP 60. She may have prolonged respiratory recovery Constipation, ileus versus early SBO-improved Resolved Continue bowel regimen. Diet advanced with improvement of bowel function. Boost ordered for protein supplementation tolerating this well 02/19 Acute toxic metabolic encephalopathy, asterixis Started 02/13 Cefepime was discontinued Topamax, gabapentin, tramadol were discontinued Mentation improved, patient mentating normally at baseline although fatigued/frail ALT normal, minimal AST elevation, mildly elevated bilirubin in the setting of large hematomas. S/p prior cholecystectomy Improved Intramuscular hematomas Interval worsening of right internal oblique suspected due to hematoma, new suspected subacute hemorrhage of the left pectineus muscle. 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 She had PE in 2021 with recurrence in 2022 while on a DOAC and was switched to warfarin as a result. She has substantial bruising circumferentially around her lower back and flank bilaterally and down the left leg. This is stable 02/18 and hemoglobin is spontaneously uptrending again on 02/19 Hold warfarin for 1 week, then resume p.o. Do not bridge. Titrate slowly with goal low therapeutic range 22.5 Ferritin, transferrin saturation normal She has slight pinkness with some history of rectal prolapse/hemorrhoids but no evidence of significant GI bleeding and BUN is not markedly elevated suggestive of upper GI bleed. Was transiently kept on clears after ileus to ensure no worsening GI bleeding, subsequently advance to regular diet. She has not had recurrent hemodynamically significant bleeding and hemoglobin fluctuating between 8 and 9. Cont to monitor as outpatient Hyponatremia Baseline typically around [id number]. Slight decrease 02/19, trended. Likely so me solute depletion although also still appears with net free water positive. Oral Lasix daily continued Hypokalemia Normal 02/19. Trend periodically PMR/fibromyalgia Chronic prednisone 5 mg at baseline, currently on prednisone taper AYE intolerant of CPAP Has been unable to reach outpatient sleep study due to concurrent illnesses Intolerant of PPV Continue nocturnal oxygen as needed for now Anasarca Creatinine at baseline Lasix continued Chronic stable issues: Splenic lesions: With lymphadenopathy. Follows with Dr. Frost. Left lower extremity skin tear: Continue wound care CODE STATUS: DNR/DNI (2) Anticoagulant long-term use: (3) Intramuscular hematoma: (4) Aortic valve insufficiency: (5) Chronic pulmonary embolism: Discharge Exam Gen: no acute distress, lying in bed comfortable HEENT: NC/AT, MMM, intermittent coughing Lungs: nonlabored breathing, diminished breath sounds at the bases CVS: [id number], RRR Abd: nl bowel sounds, soft, NT / ND : no joel Ext: no edema Neuro: AAOx3 Skin: significant bruising through out the her flank, abdomen, and lower extremity Psych: calm cooperative Discharge Plan Discharge Items Patient Disposition: Transfer Retirement Fac Reason For Visit: SEPSIS Discharge Diagnosis: Sepsis Pneumonia CHF Acute blood loss anemia Condition on Discharge: Fair Activity: Resume your previous activity Non-emergency contact: Primary Care Provider Call non-emergency contact if: you have any medication questions Follow-up/Referrals: Joe Frost MD [Physician] - Gege Alexis MD [Primary Care Provider] - Diet: Regular Addtl Attending Provider Instructions: You are seen in the hospital for acute respiratory failure, acute hematoma/bleeding, pancytopenia, and pneumonia. You had extensive bleeding and hematomas including in the left pectineus, right oblique, and with bruising/bleeding circumferentially around your pelvis/flank and back. Your warfarin was held. Your blood counts were stable and spontaneously uptrending day of discharge. Your blood level was 8.2 at time of discharge. You had acute respiratory failure which is likely combination from fluid overload, and suspected pneumonia. Your sepsis resolved. You did have 1/4 blood culture bottles which were positive for strep salivarius/strep viridans which was thought to be contaminant however would have been covered by the antibiotics received during admission. You have also had entero-/rhinovirus viral pneumonia. Your breathing slowly improved and you were weaned back to room air at time of discharge. You are on stress dose steroids which have been tapered. Please continue prednisone 10 mg and taper this back to your baseline 5 mg in 3-4 days if doing well (to titrate down to 5mg around 02/22/25). An ultrasound of your heart was unchanged. You have transient pancytopenia which was thought to be due to your acute illness. If this does not improve in the future it is recommended you follow-up with hematology/oncology and a bone marrow biopsy could be considered however this was not recommended at this time. Your Topamax was tapered and discontinued as it can contribute to pancytopenia. Your platelet count was >30k during admit and platelet transfusion was not recommended. There is a high risk of recurrent clotting while off warfarin however warfarin is currently precluded due to your extensive severe bleeding. It is recommended to hold off on warfarin for approximately 1 week and then restart this if your blood counts are stable in approximately 3-4 days (02/22/25). Ensure hgb stays stable on 02/21 and repeat Hgb 02/24 to ensure stability of hgb. Please have your blood work checked as outpatient prior initiating Warfarin. It was recommended by your casino change attendant does not have a bridge, to slowly use warfarin to bring your INR up to around 22.5. A vena cava filter to help catch clots was discussed however this does not prevent blood clots from forming and can increase your short-term risk of clots and was not recommended. Please take a vitamin B 12 and folic acid supplement daily to help promote blood cell production. If you develop any new or worsening symptoms including fever, chills, sweats, chest pain, chest pressure, difficulty breathing, uncontrolled nausea/vomiting, rash, wheezing, passing out or nearly passing out, bleeding, black/bloody bowel movements, or other new or concerning symptoms please call your primary care physician, or call 911 for re-evaluation in the emergency department if you are very concerned. Pending Studies at Discharge: Yes Stand-Alone Forms: [facility] Skilled Items Patient informed of condition?: Yes DNR: Yes Discharge Level of Care: Acute rehab Communicable Disease: No Discharge Prognosis: Improving Lines: None Urinary Catheter: No Medications and DC Order Prescriptions: New prednisone 10 mg Tablet 10 mg PO QAM Qty: 3 0RF folic acid 400 mcg tablet 0.4 mg PO DAILY Qty: 30 0RF cyanocobalamin (vitamin B-12) 1,000 mcg capsule 1,000 mcg PO DAILY Qty: 30 0RF Continued Orazinc 25 mg zinc (110 mg) tablet 25 mg PO QAM acetaminophen 500 mg tablet 500 mg PO DAILY PRN (Reason: Pain) fluticasone furoate-vilanterol [Breo Ellipta] 100-25 mcg/dose blister with dev ice 1 inh inhalation QPM Qty: 60 3RF levothyroxine 75 mcg tablet 75 mcg PO DAILYBB Qty: 90 3RF latanoprost 0.005 % drops 1 drops OPB QPM trazodone 100 mg tablet 50 mg PO QPM Rx Instructions: Patient only taking 50mg at bedtime (03/05/2023) Systane Gel 0.3 % gel 1 drp OPR BID Rx Instructions: Uses in Right eye Systane Ultra 0.4-0.3 % drops 1 drp OPL BID Rx Instructions: uses in left eye albuterol sulfate 90 mcg/actuation HFA aerosol inhaler 2 puff INH Q4H PRN (Reason: shortness of breath or wheezing) Qty: 1 11RF tramadol 50 mg tablet 50 mg PO AMHS PRN (Reason: pain) Qty: 60 0RF pantoprazole 40 mg tablet,delayed release (DR/EC) 40 mg PO BID 90 Days Qty: 180 3RF multivitamin Tablet 1 tab PO QAM dorzolamide-timolol 22.3-6.8 mg/mL drops 1 drp OPB BID cholecalciferol (vitamin D3) [Vitamin D3] 25 mcg (1,000 unit) Tablet 100 mcg PO QAM fexofenadine 180 mg Tablet 180 mg PO QAM magnesium 250 mg Tablet 250 mg PO QAM docusate sodium 100 mg capsule 100 mg PO QAM PRN (Reason: Constipation) gabapentin 300 mg capsule 300 mg PO BID duloxetine 60 mg capsule,delayed release(DR/EC) 120 mg PO QAM famotidine 20 mg tablet 20 mg PO HS montelukast 10 mg tablet 10 mg PO HS benzonatate 100 mg Capsule 100 mg PO TID PRN (Reason: cough) Qty: 30 0RF dextromethorphan-guaifenesin [Robitussin Cough-Chest Polo DM] 5-100 mg/5 mL Liquid 10 ml PO Q6H PRN (Reason: cough) Qty: 100 0RF furosemide 20 mg tablet 20 mg PO QAM Qty: 0 0RF Held warfarin 2 mg tablet 2 mg PO DAILY Hold Instructions: Resume on 02/22/25. prednisone 5 mg tablet 5 mg PO DAILY Hold Instructions: Resume on 02/22/25. Discontinued topiramate 50 mg tablet 50 mg PO BID Qty: 60 5RF Discharge Orders: Discharge Order (Routine); Ordered 02/20/25 Ordered By: Shaye Knox Admission Data Admit Date/Time: 02/08/25 21:25 Attending Provider: Shaye Knox Admit Provider: Rosemary Raymundo Primary Care Provider: Gege Alexis. Other Providers: Rosemary Raymundo; Eunice Upton; [place]; [facility] Stay Data Consultations 02/08/25 18:04 ED Decision to Admit Stat 02/09/25 13:57 Consult Hematology Routine Diagnostic Imagining Performed 02/08/25 15:57 CT abd pelvis IV con only Stat CT for pulmonary embolism PE [CT angio chest PE protocol] Stat 02/15/25 15:52 US abdomen limited Stat Pending Results Patient Have Any Pending Studies at Discharge: Yes Discharge Instructions Given to Patient (Per Discharging Provider) You are seen in the hospital for acute respiratory failure, acute hematoma/ble eding, pancytopenia, and pneumonia. You had extensive bleeding and hematomas including in the left pectineus, right oblique, and with bruising/bleeding circumferentially around your pelvis/flank and back. Your warfarin was held. Your blood counts were stable and spontaneously uptrending day of discharge. Your blood level was 8.2 at time of discharge. You had acute respiratory failure which is likely combination from fluid overload, and suspected pneumonia. Your sepsis resolved. You did have 1/4 blood culture bottles which were positive for strep salivarius/strep viridans which was thought to be contaminant however would have been covered by the antibiotics received during admission. You have also had entero-/rhinovirus viral pneumonia. Your breathing slowly improved and you were weaned back to room air at time of discharge. You are on stress dose steroids which have been tapered. Please continue prednisone 10 mg and taper this back to your baseline 5 mg in 3-4 days if doing well (to titrate down to 5mg around 02/22/25). An ultrasound of your heart was unchanged. You have transient pancytopenia which was thought to be due to your acute illness. If this does not improve in the future it is recommended you follow-up with hematology/oncology and a bone marrow biopsy could be considered however this was not recommended at this time. Your Topamax was tapered and discont inued as it can contribute to pancytopenia. Your platelet count was >30k during admit and platelet transfusion was not recommended. There is a high risk of recurrent clotting while off warfarin however warfarin is currently precluded due to your extensive severe bleeding. It is recommended to hold off on warfarin for approximately 1 week and then restart this if your blood counts are stable in approximately 3-4 days (02/22/25). Ensure hgb stays stable on 02/21 and repeat Hgb 02/24 to ensure stability of hgb. Please have your blood work checked as outpatient prior initiating Warfarin. It was recommended by your casino change attendant does not have a bridge, to slowly use warfarin to bring your INR up to around 22.5. A vena cava filter to help catch clots was discussed however this does not prevent blood clots from forming and can increase your short-term risk of clots and was not recommended. Please take a vitamin B 12 and folic acid supplement daily to help promote blood cell production. If you develop any new or worsening symptoms including fever, chills, sweats, chest pain, chest pressure, difficulty breathing, uncontrolled nausea/vomiting, rash, wheezing, passing out or nearly passing out, bleeding, black/bloody bowel movements, or other new or concerning symptoms please call your primary care physician, or call 911 for re-evaluation in the emergency department if you are very concerned. Total Time Total Time Spent Total Time Spent (In Minutes): 45 Coding Level of Care Code 43258 INP/OBS DISCH >30 MIN Diagnoses Sepsis A41.9 Anticoagulant long-term use Z79.01 Intramuscular hematoma T14.8XXA Aortic valve insufficiency I35.1 Chronic pulmonary embolism I27.82
[2025-02-20 12:43] VITALS: BP 101/67; RESP 18; TEMP 97.7; O2SAT 96
[2025-02-20 12:47] VITALS: PULSE 78
== END 2025-02-20 13:44 | DRG 871 ==
LOC: ED 14:18 → 2E 21:25 → SUATTDRO 21:25 → 2E 22:16